=== PATIENT | female | born 1995 | race African-American/Black ===

== ENCOUNTER 2021-09-25 15:31 | Outpatient (CLI) | payer MEDICAID, SELFPAY ==
[2021-09-25 16:43] LABS: Absolute Lymphocyte Count 2.26 X10^3/uL (0.83-4.51); Absolute Neutrophil Count 4.1 X10^3/uL (2.0-7.7); Basophil# 0.03 X10^3/uL; Basophil% 0.4 % (0-1); Eosinophil# 0.05 X10^3/uL; Eosinophils% 0.7 % (0-5); Hematocrit 42.7 % (37-47); Lymphocyte # 2.26 X10^3/ul (0.83-4.51); Lymphocyte % 31.9 % (19-41); Mean Corp Hgb Conc 32.8 g/dL (32-36); Mean Corpuscular Volume 88.6 fL (81-99); Mean Platelet Vol. 9.3 fl (6.2-12.0); Monocyte# 0.63 X10^3/uL; Monocyte% 8.9 % (0-10); NRBC Flagged by Analyzer 0 % (0-5); Neutrophil # 4.09 X10^3/uL (2.7-7.7); Neutrophil % 57.8 % (47-70); Platelet Count 360 K/mm3 (150-450); RBC Distribution Width CV 12.8 % (11.6-14.6); RBC Distribution Width SD 41.3 fl (35.1-43.9); Red Blood Count 4.82 M/mm3 (4.2-5.4); White Blood Count 7.1 K/mm3 (4.4-11.0)
[2021-09-26 09:34] LABS: HIV - WCH Non-Reactive (Nonreactive); Hepatitis B Surface Antigen Non-Reactive (Nonreactive); Hepatitis C Antibody Non-Reactive (Nonreactive); Rubella IgG Reactive (Nonreactive); Syphilis Antibodies Non-reactive
[2021-09-27 21:07] LABS: Chlamydia By Nucleic Acid AMP Negative (Negative)
[2021-09-28 13:39] LABS: Gonococcus By Nucleic Acid AMP Negative (Negative)
[2021-10-02 15:43] LABS: HPV Reflexed? NOT INDICATED
== END 2021-09-25 23:59 | disposition home or self-care (01) ==
LOC: WOBLAB 15:36
PROVIDERS: Visit Provider Obstetrics & Gynecology
DX: Z34.81 Encounter for supervision of other normal pregnancy, first trimester (principal)
CPT/HCPCS: 36415; 85025; 86703; 86762; 86780; 86803; 87086; 87088; 87340; 87491; 87591; 88175; G0145

== ENCOUNTER 2024-02-26 19:31 | Emergency (ER) | payer MEDICAID, SELFPAY ==
[2024-02-26 19:32] VITALS: BP 152/92; PULSE 114; RESP 16; TEMP 36.6; O2SAT 98; BMI 52.8
[2024-02-26 19:49] LABS: Mucous, Urine 0 SEEN /hpf (<or=2+); White Blood Cells 0 SEEN /hpf (0-5)
[2024-02-26 19:52] LABS: Color, Urine Yellow (Yellow); Glucose, Dipstick Normal (Normal); Ketone-Dipstick Negative (Negative); Leukocyte Esterase-Dipstick Negative /ul (Negative); Nitrite-Dipstick Negative (Negative); Occult Blood-Urine 250 /ul (Negative); Protein-Dipstick Negative (Negative); Urine Bilirubin Dipstick Negative (Negative); Urine Clarity Clear (Clear); Urine Urobilinogen Normal (Normal)
[2024-02-26 20:02] LABS: Red Blood Cells-Urine 10-25 SEEN /hpf (0-5); Squamous Epithelial Cells - UA 0-5 SEEN /hpf (5-10)
[2024-02-26 20:03] LABS: Bacteria RARE /hpf (None Seen)
[2024-02-26 20:59] LABS: Absolute Lymphocyte Count 2.73 X10^3/uL (0.83-4.51); Basophil# 0.04 X10^3/uL; Basophil% 0.7 % (0-1); Eosinophil# 0.16 X10^3/uL; Eosinophils% 2.9 % (0-5); Hematocrit 39.7 % (37-47); Lymphocyte # 2.73 X10^3/ul (0.83-4.51); Lymphocyte % 50.2 % (19-41); Mean Corp Hgb Conc 32.7 g/dL (32-36); Mean Corpuscular Volume 88.6 fL (81-99); Mean Platelet Vol. 9.2 fl (6.2-12.0); Monocyte# 0.49 X10^3/uL; NRBC Flagged by Analyzer 0 % (0-5); Neutrophil # 2.01 X10^3/uL (2.7-7.7); Platelet Count 305 K/mm3 (150-450); RBC Distribution Width CV 12.8 % (11.6-14.6); RBC Distribution Width SD 41.3 fl (35.1-43.9); Red Blood Count 4.48 M/mm3 (4.2-5.4); White Blood Count 5.4 K/mm3 (4.4-11.0)
[2024-02-26 21:09] LABS: Internal QC Validated? YES +Cl - CLEAR BKGD; Pregnancy, Serum, hCG Quali. NEGATIVE Negative; Record Kit Lot#, Serum Preg. 772476
[2024-02-26 21:17] LABS: ALB/GLOB Ratio 1.1 RATIO (0.9-2.4); AST(SGOT) 13 U/L (15-37); Alanine Aminotransfer ALT/SGPT 32 U/L (13-56); Albumin, Serum 3.5 g/dL (3.2-5.0); Alkaline Phosphatase 84 U/L (45-117); Anion Gap 5 (5-15); BUN 9 mg/dL (7-18); BUN/Creat Ratio 13.2 RATIO (10-20); Calcium,Total 8.9 mg/dL (8.5-10.1); Chloride 108 mmol/L (98-107); Creatinine, Serum 0.68 mg/dL (0.55-1.02); EST Glomerular Filtration Rate 109 mL/min (>60); Est Glom Filt Rate - Afr Amer 132 mL/min (>60); Estimated Creatinine Clearance 198.87 ml/min; Globulin 3.2 g/dL (2.2-4.2); Glucose 104 mg/dL (74-106); Potassium 3.9 mmol/L (3.5-5.1); Protein, Total 6.7 g/dL (6.4-8.2); Sodium Level 140 mmol/L (136-145)
--- NOTE | 2024-02-26 22:09 | US_ITS ---
STUDY: ULTRASOUND TRANSVAGINAL CLINICAL: Female, 28 years old. vaginal bleeding and pain TECHNIQUE: Transvaginal COMPARISON: None. FINDINGS: Normal uterine size measuring 9.3 x 5.6 x 4.6 cm in maximal craniocaudal dimension. Myometrial mass measures 0.8 x 1 x 1 0.7 cm. Normal endometrial thickness measuring 7 mm. There are no endometrial masses, and there is no fluid in the endometrial cavity. Normal uterine cervix. Normal right ovary, measuring 4.4 x 2.8 x 2.7 cm. There are multiple follicles with a dominant simple cyst measuring 1.5 x 1.5 x 1.3 cm. There is also a paraovarian cyst measuring 1.6 x 1.6 x 1.6 cm which appears simple. Blood flow normal. Normal left ovary, measuring 3.2 x 2.2 x 2.1 cm. There are multiple follicles without a dominant cyst. There is no free fluid in the pelvis. Polycystic ovary disease: No. US/Transvaginal Non- IMPRESSION: Right ovarian cyst without evidence of torsion. Small uterine Fibroid. Electronically Signed: Julio Flores MD at 23:49 EDT ,
--- NOTE | 2024-02-27 00:01 | EX.ED.DYSGE1 ---
HPI History of Present Illness Chief Complaint: Abd Pain Informant: patient Narrative Narrative: Patient is a 28-year-old female with past medical history of a uterine fibroid. She states for the past 2 weeks she has been having persistent vaginal bleeding and lower abdominal discomfort. She denies any concern for she denies any fevers or chills or dysuria. She states she is currently not on any type of hormone replacement therapy and she denies any history of bleeding disorder or blood thinner use. She states that she does not have a doctor to follow-up with and based on the prolonged nature of her bleeding comes in for evaluation [facility] Home Medications ?Medication ?Instructions ?Recorded ?Last Taken ?Type NK 02/26/24 Unknown History Allergy/AdvReac Type Severity Reaction Status Date / Time latex AdvReac Rash Verified 02/26/24 19:33 Social History Smoking Status: Never smoker ROS ROS ED Constitutional Constitutional ED: Denies chills or fever(s) Eyes Eyes: Denies blurry vision or change in vision ENT ENT ED: Denies sore throat Cardiovascular Cardiovascular: Denies chest pain Respiratory/Chest Respiratory/Chest: Denies cough or dyspnea Gastrointestinal Gastrointestinal: Reports abdominal pain; Denies constipation, diarrhea, melena, nausea or vomiting Genitourinary Genitourinary ED: Reports other Details: Positive vaginal bleeding ; Denies dysuria or hematuria Musculoskeletal Musculoskeletal: Denies back pain or myalgias Integumentary Denies rash Neurologic Neurologic: Denies headache(s) Hematologic/Lymphatic Hematologic/Lymphatic: Denies easy bleeding or easy bruising EXAM Physical Exam Const Vital Signs: 02/26/24 19:32 02/27/24 00:10 Temperature 97.9 F 97.6 F L Temperature Source Temporal Pulse Rate 114 H 81 Respiratory Rate 16 16 Blood Pressure 152/92 H 131/72 H Blood Pressure Mean 112 91 Pulse Ox 98 99 Oxygen Delivery Method Room Air Positive well nourished, well developed and obese General Appearance ED: well developed; Negative for pallor Nutritional Appearance: obese HEENT HEENT Narrative: Normocephalic atraumatic Eyes PERRL and EOMs intact bilaterally General Eye ED: Negative for pale conjunctiva or scleral icterus Neck supple Resp normal respiratory effort and clear to auscultation bilaterally Cardio regular rate and regular rhythm Rate: other Other Details: Heart is regular rate and rhythm without murmurs rubs or gallop Radial and carotid pulses are equal and symmetric GI normal to inspection, nondistended, normoactive bowel sounds, non-tender, non-distended and no masses GI Narrative: No voluntary guarding or rigidity or pulsatile mass Auscultation: normoactive bowel sounds Palpation: soft Narrative: Patient deferred Back/Spine no CVA tenderness Extremity normal to inspection Neuro oriented x3, CN's II-XII intact bilaterally and no sensory deficits noted Sensorium / Orientation: alert Motor Exam: strength 5/5 throughout Psych mental status grossly normal Skin no rashes or lesions noted and no wounds General Skin Exam: Negative for jaundice or pallor MDM MDM MDM Narrative Medical decision making narrative: Patient arrived to the ER slightly hypertensive but otherwise with stable vital. She reported 2 weeks of persistent vaginal bleeding and there is concern for a ectopic versus missed versus ovarian cyst versus uterine fibroid versus dysfunctional uterine bleeding versus acute blood loss anemia. Secondary to this basic labs were obtained as well as a transvaginal ultrasound. Labs showed no clinically significant findings in transvaginal ultrasound revealed an ovarian cyst as well as uterine fibroid but otherwise no acute changes. Therefore this time as vitals are stable there is no need for a blood transfusion and there is no signs of infection there is no need for inpatient workup and he is otherwise safe for discharge with outpatient follow-up History & Record Review Discussion w/independent historian: Patient Lab Data Attestation: I reviewed the patient's lab results. Labs: Laboratory Results - last 24 hr 02/26/24 02/26/24 19:40 20:48 WBC 5.4 RBC 4.48 Hgb 13.0 Hct 39.7 MCV 88.6 MCH 29.0 MCHC 32.7 RDW Std Deviation 41.3 RDW Coeff of Raghu 12.8 Plt Count 305 MPV 9.2 Immature Gran % (Auto) 0.200 Neut % (Auto) 37.0 L Lymph % (Auto) 50.2 H [place] % (Auto) 9.0 Eos % (Auto) 2.9 Baso % (Auto) 0.7 Absolute Neuts (auto) 2.0 Absolute Lymphs (auto) 2.73 Nucleated RBC % 0 Sodium 140 Potassium 3.9 Chloride 108 H Carbon Dioxide 27.0 Anion Gap 5 BUN 9 Creatinine 0.68 Estim Creat Clear Calc 198.87 Est GFR (MDRD) Af Amer 132 Est GFR (MDRD) Non-Af 109 BUN/Creatinine Ratio 13.2 Glucose 104 Calcium 8.9 Total Bilirubin 0.20 AST 13 L ALT 32 Alkaline Phosphatase 84 Total Protein 6.7 Albumin 3.5 Globulin 3.2 Albumin/Globulin Ratio 1.1 Serum , Qual NEGATIVE Urine Color Yellow Urine Clarity Clear Urine pH 7.0 Ur Specific Liberal 1.010 Urine Protein Negative Urine Glucose (UA) Normal Urine Ketones Negative Urine Occult Blood 250 H Urine Nitrite Negative Urine Bilirubin Negative Urine Urobilinogen Normal Ur Leukocyte Esterase Negative Urine RBC 10-25 SEEN Urine WBC 0 SEEN Ur Squamous Epith Cells 0-5 SEEN Urine Bacteria RARE Urine Mucus 0 SEEN Radiography Diagnostic Testing: Clinical Impression(s) from Imaging Studies Transvaginal US 02/26/24 22:09 IMPRESSION: Right ovarian cyst without evidence of torsion. Small uterine Fibroid. Electronically Signed: Julio Flores MD at 23:49 EDT Reading Location ID and State: [address] [place] [address] Tel , Service support , Discharge Plan Triage Chief Complaint: Abd Pain ED Provider: John Gonzalez Dx/Rx/DC Orders Clinical Impression: DUB (dysfunctional uterine bleeding), Ovarian cyst, Fibroid, uterine Instructions: ED Dysfunctional Uterine Bleeding, ED Ovarian Cyst, ED Uterine Fibroids Prescriptions: No Action NK Primary Care Provider: Care Physician,No Primary Referrals: Paty Galvin MD [Med Staff - Active Staff] - Care Physician,No Primary [Primary Care Provider] - Activity Restrictions/Additional Instructions: Please follow-up with [facility] as you may need your hormone levels checked or started on control to help resolve your symptoms. Return to the ER should you have any further concerns Print Language: Turkmen Disposition Disposition: Home, Self Care Discharge Date/Time: 02/27/24 00:11
[2024-02-27 00:10] VITALS: BP 131/72; PULSE 81; RESP 16; TEMP 36.4; O2SAT 99
== END 2024-02-27 00:11 | disposition home or self-care (01) ==
PROVIDERS: Emergency Provider Emergency Medicine; Visit Provider Emergency Medicine
DX: N93.8 Other specified abnormal uterine and vaginal bleeding (principal); N83.201 Unspecified ovarian cyst, right side; D25.9 Leiomyoma of uterus, unspecified
CPT/HCPCS: 76830; 80053; 81001; 84703; 85025; 99283; A4216

== ENCOUNTER → 2024-03-03 | Outpatient (CLI) | payer MEDICAID, SELFPAY | END | disposition home or self-care (01) | LOC: LABSPEC 14:13 | PROVIDERS: Referring Provider Nurse Practitioner Family; Visit Provider Nurse Practitioner Family | DX: N89.8 Other specified noninflammatory disorders of vagina (principal) | CPT/HCPCS: 87491; 87591 ==

== ENCOUNTER 2024-03-10 19:36 | Emergency (ER) | payer MEDICAID, SELFPAY ==
[2024-03-10 19:39] VITALS: BP 156/98; PULSE 122; RESP 20; TEMP 37.3; O2SAT 96
[2024-03-10 19:53] VITALS: BMI 54.7
--- NOTE | 2024-03-10 20:33 | EKG12_ITS ---
Test Reason : CHEST TIGHTNESS Blood Pressure : / mmHG Vent. Rate : 114 BPM Atrial Rate : 114 BPM P-R Int : 160 ms QRS Dur : 086 ms QT Int : 320 ms P-R-T Axes : 059 060 038 degrees QTc Int : 441 ms Sinus tachycardia Otherwise normal ECG Confirmed by Arun Hernandez ([id number]), editor trade journal JENARO JONES ([id number]) on 03/15/2024 10:43:24 AM Referred By: ZAN Confirmed By:Arun Hernandez
[2024-03-10 21:00] VITALS: BP 126/77; PULSE 81; RESP 18; O2SAT 97
--- NOTE | 2024-03-10 21:04 | EX.ED.DYSGE1 ---
HPI History of Present Illness Chief Complaint: Palpitations Informant: patient and EMS Narrative Narrative: 28-year-old female brought to the emergency room with near syncopal-like symptoms. Patient states that she was at home was in her normal state when she felt a sharp pain in her lateral left low back. States she wanted to go take a shower is very hot muggy in her environment. She states that she began to feel lightheaded like she might pass out and developed some nausea. She states her heart started racing. She notes that she was being treated for an ovarian cyst and vaginal bleeding. She started Aygestin on about 04 March and the bleeding has subsequently stopped. She states she had blood work done on the fifth of this month. She states that she has been very emotional having hot and cold flashes. She sees Alesha Aguilar for gynecology. She is feeling better and no longer has the pain in her flank. She is a non-smoker. Prior history of DVT or PE. Prehospital EKG demonstrates a sinus tach at a rate of 150. She notes she has developed some dyspepsia since the starting of Aygestin. [facility] Medical History Ovarian cyst Preeclampsia Home Medications ?Medication ?Instructions ?Recorded ?Last Taken ?Type norethindrone acetate 5 mg tablet 5 mg PO .COMPLEX #45 tabs 03/03/24 Unknown Rx Allergy/AdvReac Type Severity Reaction Status Date / Time latex AdvReac Rash Verified 03/10/24 19:37 Family History Aunt Breast cancer, Onset Age: 34 Grandfather Throat cancer Surgical History History of tonsillectomy Social History adopted: No number of children: 1 current occupational status: employed sexually active: Yes Smoking Status: Current every day smoker tobacco type: cigarettes and e-cigarettes alcohol intake: never substance use type: does not use and marijuana caffeine: Yes Type: carbonated beverages danna/mandaeism: AGNOSTIC seatbelt use: always do you feel safe at home: Yes ROS ROS ED Constitutional Constitutional ED: Reports subjective and sweats; Denies chills or weight loss Eyes Eyes: Denies change in vision or diplopia ENT ENT ED: Denies ear pain, rhinorrhea or sore throat Cardiovascular Cardiovascular: Reports chest pain, palpitations and racing heartbeat; Denies orthopnea Respiratory/Chest Respiratory/Chest: Reports dyspnea; Denies cough or orthopnea Gastrointestinal Gastrointestinal: Reports nausea; Denies abdominal pain, diarrhea or vomiting Genitourinary Genitourinary ED: Denies dysuria, hematuria or urinary frequency Musculoskeletal Musculoskeletal: Reports back pain; Denies arthralgias or myalgias Integumentary Denies abscess or rash Neurologic Neurologic: Denies headache(s) or weakness Psychiatric Psychiatric: Denies anxiety, depression, suicidal ideation or suicidal thoughts Endocrine Endocrinology: Denies polydipsia, polyphagia or polyuria Allergic/Immunologic Allergic/Immunologic ED: Denies mouth swelling, tongue swelling or urticaria EXAM Physical Exam Const Vital Signs: 03/10/24 19:39 03/10/24 21:00 03/10/24 22:00 Temperature 99.1 F Temperature Source Oral Pulse Rate 122 H 81 88 Respiratory Rate 20 H 18 16 Blood Pressure 156/98 H 126/77 H 121/70 H Blood Pressure Mean 117 93 87 Pulse Ox 96 97 99 Oxygen Delivery Method Room Air Room Air Room Air 03/10/24 23:00 Temperature Temperature Source Pulse Rate 91 Respiratory Rate 18 Blood Pressure 116/75 Blood Pressure Mean 88 Pulse Ox 96 Oxygen Delivery Method Room Air Positive well nourished and well developed General Appearance ED: well developed HEENT Reports normocephalic, head/scalp atraumatic and moist mucous membranes Eyes PERRL and EOMs intact bilaterally Neck no lymphadenopathy, supple and no JVD Resp normal respiratory effort and clear to auscultation bilaterally Cardio regular rate, regular rhythm and no murmurs Rate: tachycardic GI normal to inspection, nondistended, normoactive bowel sounds and non-tender Palpation: soft Back/Spine no CVA tenderness and normal ROM Extremity normal to inspection General Extremety ED: Negative for edema General Extremity: Negative for edema Neuro oriented x3 and CN's II-XII intact bilaterally Sensorium / Orientation: alert Motor Exam: strength 5/5 throughout Psych Mood & Affect: anxious and tearful; Negative for depressed Skin no rashes or lesions noted and no wounds MDM MDM MDM Narrative Medical decision making narrative: Differential diagnosis includes but not limited to cardiac dysrhythmia electrolyte abnormality PE ACS vagal near syncope pneumothorax White count 6.7 hemoglobin of 13 D-dimer slightly elevated 0.60 LFTs are within normal limits. CT of the pelvis demonstrates no pulmonary embolism or aortic dissection or pneumothorax. Patient's EKG is a sinus tachycardia current heart rate down to 91. At this point I think the patient most likely experienced a vasovagal near syncope in response to her pain. She notes that she has been very emotional since she started the Aygestin and has a lot of stress in her life. She will speak with gynecology tomorrow if she should continue this medication as she is no longer having any bleeding. History & Record Review Discussion w/independent historian: EMS personnel and Patient Lab Data Attestation: I reviewed the patient's lab results. Labs: Laboratory Results - last 24 hr 03/10/24 20:41 WBC 6.7 RBC 4.50 Hgb 13.0 Hct 40.3 MCV 89.6 MCH 28.9 MCHC 32.3 RDW Std Deviation 43.8 RDW Coeff of Raghu 13.5 Plt Count 329 MPV 9.2 Immature Gran % (Auto) 0.400 Neut % (Auto) 48.9 Lymph % (Auto) 36.3 [place] % (Auto) 11.0 H Eos % (Auto) 2.7 Baso % (Auto) 0.7 Absolute Neuts (auto) 3.3 Absolute Lymphs (auto) 2.44 Nucleated RBC % 0 D-Dimer Quant (PE/DVT) 0.60 H* Sodium 140 Potassium 3.8 Chloride 109 H Carbon Dioxide 24.0 Anion Gap 7 BUN 9 Creatinine 0.78 Estim Creat Clear Calc 177.29 Est GFR (MDRD) Af Amer 113 Est GFR (MDRD) Non-Af 94 BUN/Creatinine Ratio 11.5 Glucose 86 Calcium 8.7 Total Bilirubin 0.20 Direct Bilirubin 0.09 AST 35 ALT 45 Alkaline Phosphatase 67 Total Protein 6.6 Albumin 3.4 Globulin 3.2 Radiography Diagnostic Testing: Clinical Impression(s) from Imaging Studies Chest CTA 03/10/24 22:15 IMPRESSION: No pulmonary embolism or other acute intrathoracic abnormality. Electronically Signed: Venkata Sousa MD at 22:51 EDT , EKG Initial EKG: Attestation: I personally reviewed and interpreted this EKG as follows: Comments: Sinus tachycardia ventricular rate of 114 bpm Discharge Plan Triage Chief Complaint: Palpitations ED Provider: [facility] Dx/Rx/DC Orders Clinical Impression: Near syncope, Acute left flank pain Instructions: ED Near-Fainting- Vagal Reaction Prescriptions: No Action norethindrone acetate 5 mg tablet 5 mg PO .COMPLEX Qty: 45 0RF Rx Instructions: 5 mg orally TID until bleeding stops for 24hrs then BID to finish RX; Primary Care Provider: Care Physician,No Primary Referrals: Care Physician,No Primary [Primary Care Provider] - Activity Restrictions/Additional Instructions: Please call gynecology in the more than continuation of your medication. Print Language: Yakut Disposition Disposition: Home, Self Care
[2024-03-10 21:10] LABS: Absolute Lymphocyte Count 2.44 X10^3/uL (0.83-4.51); Absolute Neutrophil Count 3.3 X10^3/uL (2.0-7.7); Basophil# 0.05 X10^3/uL; Basophil% 0.7 % (0-1); Eosinophil# 0.18 X10^3/uL; Eosinophils% 2.7 % (0-5); Hematocrit 40.3 % (37-47); Lymphocyte # 2.44 X10^3/ul (0.83-4.51); Lymphocyte % 36.3 % (19-41); Mean Corp Hgb Conc 32.3 g/dL (32-36); Mean Corpuscular Hgb 28.9 pg (27.0-32.0); Mean Corpuscular Volume 89.6 fL (81-99); Mean Platelet Vol. 9.2 fl (6.2-12.0); Monocyte# 0.74 X10^3/uL; NRBC Flagged by Analyzer 0 % (0-5); Neutrophil # 3.28 X10^3/uL (2.7-7.7); Neutrophil % 48.9 % (47-70); Platelet Count 329 K/mm3 (150-450); RBC Distribution Width CV 13.5 % (11.6-14.6); RBC Distribution Width SD 43.8 fl (35.1-43.9); White Blood Count 6.7 K/mm3 (4.4-11.0)
[2024-03-10 21:31] LABS: AST(SGOT) 35 U/L (15-37); Alanine Aminotransfer ALT/SGPT 45 U/L (13-56); Albumin, Serum 3.4 g/dL (3.2-5.0); Alkaline Phosphatase 67 U/L (45-117); Anion Gap 7 (5-15); BUN 9 mg/dL (7-18); BUN/Creat Ratio 11.5 RATIO (10-20); Bilirubin, Direct 0.09 mg/dL (0.00-0.30); Calcium,Total 8.7 mg/dL (8.5-10.1); Chloride 109 mmol/L (98-107); Creatinine, Serum 0.78 mg/dL (0.55-1.02); EST Glomerular Filtration Rate 94 mL/min (>60); Est Glom Filt Rate - Afr Amer 113 mL/min (>60); Estimated Creatinine Clearance 177.29 ml/min; Globulin 3.2 g/dL (2.2-4.2); Glucose 86 mg/dL (74-106); Potassium 3.8 mmol/L (3.5-5.1); Protein, Total 6.6 g/dL (6.4-8.2); Sodium Level 140 mmol/L (136-145)
[2024-03-10 22:00] VITALS: BP 121/70; PULSE 88; RESP 16; O2SAT 99
--- NOTE | 2024-03-10 22:15 | CT_ITS ---
STUDY: CTA CHEST REASON FOR EXAM: Female, 28 years old. pulmonary embolism elevated d dimer RADIATION DOSAGE (If Supplied By Facility): CTDIvol = ( 24.82 ) mGy, DLP = ( 783.16 ) mGycm TECHNIQUE: The examination was performed with the intravenous administration of IV 100mL Isovue-370. Post-processing of the angiographic images was performed, with multiplanar reformation and 3D reconstruction. Individualized dose optimization techniques were used for this CT. COMPARISON: No relevant prior comparison study available FINDINGS: PULMONARY ARTERIES: Normal enhancement of the main pulmonary artery and right and left pulmonary arteries. Normal enhancement of the bilateral peripheral pulmonary arteries. There is no demonstrated pulmonary embolism. AORTA: Normal thoracic aorta and visualized great vessels. There is no demonstrated aortic dissection. MEDIASTINUM: Normal heart and pericardium. Normal mediastinum. Normal hilar regions. LUNGS/PLEURA: Normal visualized trachea and bronchi. The lungs are well expanded. Normal pulmonary parenchyma. Normal pleura. No pneumothorax. CHEST WALL: Normal chest wall structures. UPPER ABDOMEN: Normal visualized upper abdomen. OSSEOUS STRUCTURES: No acute or suspicious osseous abnormality. CT/CTA Chest W/WO Contrast IMPRESSION: No pulmonary embolism or other acute intrathoracic abnormality. Electronically Signed: Venkata Sousa MD at 22:51 EDT ,
[2024-03-10 23:00] VITALS: BP 116/75; PULSE 91; RESP 18; O2SAT 96
[2024-03-10 23:55] VITALS: BP 151/89; PULSE 81; RESP 16; TEMP 36.6; O2SAT 99
== END 2024-03-10 23:55 | disposition home or self-care (01) ==
PROVIDERS: Emergency Provider Emergency Medicine; Visit Provider Emergency Medicine
DX: R55 Syncope and collapse (principal); R10.9 Unspecified abdominal pain; Z11.52 Encounter for screening for COVID-19; R00.2 Palpitations; R00.0 Tachycardia, unspecified; F17.210 Nicotine dependence, cigarettes, uncomplicated; F17.290 Nicotine dependence, other tobacco product, uncomplicated
CPT/HCPCS: 71275; 80048; 80076; 85025; 85379; 87631; 93005; 99284; Q9967

== ENCOUNTER → 2024-04-23 | Outpatient (CLI) | payer MEDICAID, SELFPAY ==
--- NOTE | 2024-04-23 10:13 | US_ITS ---
STUDY: ULTRASOUND OF THE FEMALE PELVIS - COMPLETE REASON FOR EXAM: Female, 28 years old. Ovarian cyst LMP: March 27, 2024. TECHNIQUE: Transabdominal and Transvaginal TECHNICAL QUALITY: Adequate. COMPARISON: Comparison is made with prior study February 26, 2024. FINDINGS: The uterus is anteverted and is in a midline position. The uterus measures 11.1 cm x 6.7 cm x 5.6 cm. There is a Nabothian cyst of the cervix. The endometrium measures 8 mm in thickness, and is heterogeneous (striated). There is no demonstrated endometrial mass. There is no demonstrated myometrial mass. I.U.D. - The patient does not have an I.U.D. The right ovary is visualized. The right ovary measures 3.9 cm x 2.9 cm x 2.5 cm. There is no right ovarian cyst or ovarian mass. There is a 2.1 cm x 1.6 cm x 1.5 cm paraovarian cyst in the right adnexa. This has increased slightly in size as compared to prior study. There is normal arterial and normal venous vascularity. The left ovary is visualized. The left ovary measures 5.3 cm x 6 cm x 5.2 cm. There is a 5.1 cm x 3 cm x 3.5 cm complex cystic nodule in the left ovary. Sonographic follow-up is recommended. This may represent an hemorrhagic cyst. There is no visualized left adnexal mass or complex lesion. There is normal arterial and normal venous vascularity. There is no fluid in the cul-de-sac. The pre void volume of the bladder was 234 ml. US/Pelvic w/ Transvaginal IMPRESSION: Slight increase in size of the previously seen right paraovarian cyst. New complex cyst in the left ovary measuring 5.1 cm x 3 cm x 3.5 cm. This most likely represents a hemorrhagic cyst. Sonographic follow-up recommended. Electronically Signed: Blue Tse MD at 8:58 EST ,
[2024-04-23 11:50] LABS: Absolute Lymphocyte Count 2.59 X10^3/uL (0.83-4.51); Basophil# 0.04 X10^3/uL; Basophil% 0.5 % (0-1); Eosinophil# 0.13 X10^3/uL; Eosinophils% 1.7 % (0-5); Hematocrit 42.6 % (37-47); Hemoglobin 13.6 g/dL (12.0-15.0); Lymphocyte # 2.59 X10^3/ul (0.83-4.51); Lymphocyte % 34.4 % (19-41); Mean Corp Hgb Conc 31.9 g/dL (32-36); Mean Corpuscular Hgb 28.5 pg (27.0-32.0); Mean Corpuscular Volume 89.3 fL (81-99); Mean Platelet Vol. 9.9 fl (6.2-12.0); Monocyte# 0.71 X10^3/uL; Monocyte% 9.4 % (0-10); NRBC Flagged by Analyzer 0 % (0-5); Neutrophil # 4.02 X10^3/uL (2.7-7.7); Neutrophil % 53.6 % (47-70); Platelet Count 323 K/mm3 (150-450); RBC Distribution Width CV 12.6 % (11.6-14.6); RBC Distribution Width SD 41.3 fl (35.1-43.9); Red Blood Count 4.77 M/mm3 (4.2-5.4); White Blood Count 7.5 K/mm3 (4.4-11.0)
[2024-04-23 12:29] LABS: ALB/GLOB Ratio 1.1 RATIO (0.9-2.4); AST(SGOT) 15 U/L (15-37); Alanine Aminotransfer ALT/SGPT 28 U/L (13-56); Albumin, Serum 3.6 g/dL (3.2-5.0); Alkaline Phosphatase 70 U/L (45-117); Anion Gap 4 (5-15); BUN 5 mg/dL (7-18); BUN/Creat Ratio 8.2 RATIO (10-20); Calcium,Total 8.9 mg/dL (8.5-10.1); Chloride 107 mmol/L (98-107); Creatinine, Serum 0.61 mg/dL (0.55-1.02); EST Glomerular Filtration Rate 125 mL/min (>60); Est Glom Filt Rate - Afr Amer 151 mL/min (>60); Globulin 3.2 g/dL (2.2-4.2); Glucose 96 mg/dL (74-106); Potassium 3.8 mmol/L (3.5-5.1); Protein, Total 6.8 g/dL (6.4-8.2); Sodium Level 135 mmol/L (136-145); T4 Free Direct 1.02 ng/dL (0.76-1.46); Thyroid Stim Hormone (TSH) 0.915 uIU/mL (0.358-3.740)
[2024-04-23 12:49] LABS: HIV - WCH Non-Reactive (Nonreactive); Hepatitis B Surface Antigen Non-Reactive (Nonreactive); Hepatitis C Antibody Non-Reactive (Nonreactive); Syphilis Antibodies Non-reactive
== END | disposition home or self-care (01) ==
PROVIDERS: Referring Provider Nurse Practitioner Family; Visit Provider Nurse Practitioner Family
DX: N93.8 Other specified abnormal uterine and vaginal bleeding (principal); N83.209 Unspecified ovarian cyst, unspecified side; D25.9 Leiomyoma of uterus, unspecified; Z13.29 Encounter for screening for other suspected endocrine disorder; N89.8 Other specified noninflammatory disorders of vagina
CPT/HCPCS: 36415; 76830; 76856; 80053; 84439; 84443; 85025; 86695; 86696; 86703; 86780; 86803; 87340

== ENCOUNTER 2025-01-22 21:44 | Emergency (ER) | payer MEDICAID, SELFPAY ==
[2025-01-22 21:45] VITALS: BP 157/106; PULSE 110; RESP 18; TEMP 36.4; O2SAT 97; BMI 69.9
--- NOTE | 2025-01-22 22:16 | EDS_ITS ---
HPI History of Present Illness Chief Complaint: Shortness of Breath Informant: patient Narrative Narrative: Presents concerning swelling left ankle over the last couple days. States initially had mild pain in the However it went away. She traveled back in October over 3 months ago to [place]. She states when she returned she had leg pains bilaterally went to an outside ED ultrasounds both legs were negative. Normal urination. Nursing triage notes dyspnea however she denies dyspnea. States she has anxiety and smokes. No vomiting no diarrhea. No history of blood clots in legs or lungs. She is she is been elevating. She is making normal urine output. [facility] Medical History Hypertension Ovarian cyst Preeclampsia Home Medications ?Medication ?Instructions ?Recorded ?Last Taken ?Type norethindrone acetate 5 mg tablet 5 mg PO .COMPLEX #45 tabs 03/03/24 Unknown Rx Allergy/AdvReac Type Severity Reaction Status Date / Time latex AdvReac Rash Verified 01/22/25 21:48 Family History Aunt Breast cancer, Onset Age: 34 Grandfather Throat cancer Surgical History History of tonsillectomy Social History adopted: No number of children: 1 current occupational status: employed sexually active: Yes Smoking Status: Current every day smoker tobacco type: cigarettes and e- cigarettes alcohol intake: never substance use type: does not use and marijuana caffeine: Yes Type: carbonated beverages danna/church: AGNOSTIC seatbelt use: always do you feel safe at home: Yes ROS ROS ED Constitutional Constitutional ED: Denies fever(s) Cardiovascular Cardiovascular: Denies chest pain Respiratory/Chest Respiratory/Chest: Denies cough Gastrointestinal Gastrointestinal: Denies diarrhea or vomiting Musculoskeletal Musculoskeletal: Reports other Details: Swelling left ankle. ; Denies none Integumentary Denies rash or wounds Neurologic Neurologic: Denies weakness EXAM Physical Exam Const Vital Signs: 01/22/25 21:45 01/22/25 22:03 01/22/25 22:05 Temperature 97.6 F L Temperature Source Temporal Pulse Rate 110 H Respiratory Rate 18 Respiratory Effort Normal Normal Respiratory Depth Normal Respiratory Pattern Normal Normal Blood Pressure 157/106 H Blood Pressure Mean 123 Pulse Ox 97 Oxygen Delivery Method Room Air Room Air Positive well nourished and well developed Constitutional Narrative: BMI 70 General Appearance ED: well developed HEENT normocephalic and atraumatic Eyes General Eye ED: Yes normal appearance of both eyes Neck full ROM Resp normal respiratory effort and normal air movement Cardio regular rate and regular rhythm Rate: other Other Details: Heart rate 94 GI soft to palpation Extremity normal to inspection and full ROM Extremity Narrative: Left lower extremity: Very mild swelling ankle. No redness no warmth. No calf tenderness. Soft compartments. Pulses intact distally. Neuro oriented x3 Skin no rashes or lesions noted and no wounds MDM MDM MDM Narrative Medical decision making narrative: Interventions / MDM: Differential diagnosis: Left lower extremity swelling, history of asthma Diagnosis considered but do not suspect: Proximal DVT however bedside ultrasound negative, electrolyte abnormalities however labs normal. My EKG interpretation: N/A Imaging independently reviewed and interpreted by myself: N/A External documents reviewed: N/A Test considered but not ordered:N/A ED course: isolated swelling left ankle. Patient traveled over 3 months ago. She reported ultrasounds afterwards were negative. She denies any urinary changes. She has not any recent blood work. I will check basic labs. No official ultrasound available at this time. I will perform bedside ultrasound to point regions for evaluation. 5: Left lower extremity 2 point bedside ultrasound performed by myself no DVT proximal third along with popliteal. Patient reassured. Awaiting lab work results. 2320: Lab work normal creatinine 0.68. Reassuring findings. Follow-up given along with outpatient formal ultrasound ordered. Re-evaluation: stable Disposition discussed with patient/family/significant other: Patient Case discussed with consulting clinician: N/A This note was generated with Patience dictation software. It may contain incorrect words, spelling, and punctuation that were not noted in checking the note before signing. Lab Data Attestation: I reviewed the patient's lab results. Labs: Laboratory Results - last 24 hr 01/22/25 01/22/25 01/22/25 22:28 22:28 23:03 WBC Cancelled 5.5 Corrected WBC Cancelled RBC Cancelled 4.70 Hgb Cancelled 13.6 Hct Cancelled 41.5 MCV Cancelled 88.3 MCH Cancelled 28.9 MCHC Cancelled 32.8 RDW Std Deviation Cancelled 41.5 RDW Coeff of Raghu Cancelled 12.9 Plt Count Cancelled 313 MPV Cancelled 9.3 Immature Gran % (Auto) Cancelled 0.200 Neut % (Auto) Cancelled 46.0 L Lymph % (Auto) Cancelled 41.5 H [place] % (Auto) Cancelled 8.7 Eos % (Auto) Cancelled 3.1 Baso % (Auto) Cancelled 0.5 Absolute Neuts (auto) Cancelled 2.5 Absolute Lymphs (auto) Cancelled 2.29 Total Counted Cancelled Neutrophils % (Manual) Cancelled Band Neutrophils % Cancelled Lymphocytes % (Manual) Cancelled Monocytes % (Manual) Cancelled Eosinophils % (Manual) Cancelled Basophils % (Manual) Cancelled Metamyelocytes % Cancelled Myelocytes % Cancelled Promyelocytes % Cancelled Blast Cells % Cancelled Plasma Cell % (Manual) Cancelled Other Cells % Cancelled Nucleated RBC % Cancelled 0 Nucleated RBCs/100 WBC Cancelled Differential Comment Cancelled Diff Path Review Cancelled Hypersegmented Neuts Cancelled Atypical Lymphocytes Cancelled Reactive Lymphocytes Cancelled Smudge Cells Cancelled Toxic Granulation Cancelled Toxic Vacuolation Cancelled Dohle Bodies Cancelled Jayne Rods Cancelled Platelet Estimate Cancelled Plt Morphology Comment Cancelled RBC Morphology Cancelled Cancelled Polychromasia Cancelled Hypochromasia Cancelled Basophilic Stippling Cancelled Anisocytosis Cancelled Microcytosis Cancelled Macrocytosis Cancelled Spherocytes Cancelled Sickle Cells Cancelled Target Cells Cancelled Tear Drop Cells Cancelled Ovalocytes Cancelled Stomatocytes Cancelled [place] Bodies Cancelled Marvin Cells Cancelled Bite Cells Cancelled Crenated Cell Cancelled Acanthocytes (Spur) Cancelled Rouleaux Cancelled Schistocytes Cancelled Sodium 139 Potassium 4.2 Chloride 105 Carbon Dioxide 25.5 Anion Gap 9 BUN 12 Creatinine 0.68 L Estim Creat Clear Calc 237.01 Est GFR (MDRD) Non-Af 122 BUN/Creatinine Ratio 17.2 Glucose 105 H Calcium 9.0 Discharge Plan Triage Chief Complaint: Shortness of Breath ED Provider: Gomez Philippe Dx/Rx/DC Orders Clinical Impression: Edema, peripheral, History of anxiety Instructions: ED Peripheral Edema, Unilateral Prescriptions: No Action norethindrone acetate 5 mg tablet 5 mg PO .COMPLEX Qty: 45 0RF Rx Instructions: 5 mg orally TID until bleeding stops for 24hrs then BID to finish RX; Other Ambulatory Orders: Venous Duplex US, Unilateral (Stat) Facility: [facility] - Location: [facility] Ordered By: Dr. Gomez Philippe Primary Care Provider: Care Physician,No Primary Referrals: Care Physician,No Primary [Primary Care Provider] - Justyna Dickens DO Tammie [[facility]] - 1-2 Weeks Activity Restrictions/Additional Instructions: Bedside ultrasound shows no clots in your upper leg or behind your knee. Your labs are stable. Return for evaluation formal ultrasound your left leg. Print Language: Surinamese Disposition Disposition: Home, Self Care
--- OUTSIDE RECORDS SUMMARY | 2025-01-22 22:24 | XMS RPT_ITS | CCD ---
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 Name Role Phone Jenni Marina PA-C Unavailable Unavailable SHAHNAZ PUCKETT Referring UnavailROBINSON Molina Attending Unavailable PHYSICIAN, NONE Primary Care Physician Unavailab le PHYSICIAN, NONE Primary Care Unavailable ANDRIY MORENO DO Admitting Unavailable BEULAH HILLIARD, SHASHANK Hubbard Attending Unavailab sintia ELAM MD, KATERIN Attending Unavailable PHYSICIAN, NONE Primary Care Unavailable KATERIN ELAM MD Admitting Unavailable KYLE HILLIARD, DR IKER Reyes Consulting Unavailab sintia ALVAREZ MD, DR OLGA Reyes Attending Unavailable PHYSICIAN, NONE Primary Care Unavailable ERIN GIRON MD Attending Unavailable PHYSICIAN, NONE Primary Care Unavailable ERIN GIRON MD Attending Unavailable PHYSICIAN, NONE Primary Care Unavailable PHYSICIAN, NONE Primary Care Unavailable NAE ROBERTO DO Attending Unavailable KELLY NERI DO Attending Unavailable PHYSICIAN, NONE Primary Care Unavailable TOMMY LAINEZ DO Attending Unavailable PHYSICIAN, NONE Primary Care Unavailable Unavailable Primary Care Provider UnavailJohn Daniel Attending Unavailable Care Physician, No Primary Primary Care Unava ilAlesha Haas Attending Unavailable Care Physician, No Primary Primary Care Unava ilable Alesha Aguilar Referring Unavailable Alesha Aguilar Referring Unavailable Care Physician, No Primary Primary Care Unava ilAlesha Haas Attending Unavailable Sara Santa Attending Unavailable Care Physician, No Primary Referring Unava ilable Care Physician, No Primary Primary Care Unava ilable Care Physician, No Primary Referring Unava ilable Care Physician, No Primary Primary Care Unava ilAlesha Haas Attending Unavailable Care Physician, No Primary Primary Care Unava ilable Care Physician, No Primary Referring Unava ilAlesha Haas Attending Unavailable Care Physician, No Primary Primary Care Unava ilable Alesha Aguilar Referring Unavailable Alesha Aguilar Attending Unavailable Care Physician, No Primary Primary Care Unava ilable Brennan [facility] Attending Unavailable BRIT PAUL Attending Unavailable RIN MORGAN Attending Unavailable GWEN ZHANG Attending Unavailable GWEN ZHANG Referring Unavailable GWEN ZHANG Attending Unavailable ALBER WOLFF Attending Unavailable BRIT PAUL Referring Unavailable SHAHNAZ MARIN Attending Unavailable ASIAVINCENT YATESFER Referring Unavailable ASIASHAHNAZ YATES Attending Unavailable MORGAN, RIN Referring Unavailable MORGAN, RIN Attending Unavailable RUSH, JOESY Referring Unavailable RUSH, JOSEY Referring Unavailable RUSH, JOSEY Attending Unavailable Allergies Allergy Classification Reported Allergen(s) Allergy Type Date of Onset Reaction(s) Facility (1 source) NUTRITIONAL SUPPLEMENTS; Translations: [NUTRITIONAL SUPPLEMENTS] Propensity to adverse reactions to drug (disorder) 4 [facility] (1 source) [id number] ARCH; Translations: [[id number] TARCH] Propensity to adverse reactions to drug (disorder) 4 [facility] (2 sources) Bee/Wasp/Ant venom Allergy to substance [facility] (20 sources) Latex; Translations: [latex] Drug allergy 4 Itching [facility] Medications Current Medications Medication Drug Class(es) Dates Sig (Normalized) Sig (Original) albuterol MDI (90 mcg/inh) CFC free inhalation aerosol (1 source) Start: 03-28-2022 take 1 puff(s) by inhalation every four hours as needed for wheezing albuterol MDI (90 mcg/inh) CFC free inhalation aerosol 1 puff(s), Inhalation, q4h, PRN as needed for wheezing, # 18 gram(s), 0 Refill(s) Start Date: 03/28/22 Status: Ordered Blood Pressure Cuff (1 source) Start: 04-07-2022 Blood Pressure Cuff See Instructions, Check and Log Blood Pressure Daily, # 1 EA, 0 Refill(s), Pharmacy: [facility] #[id number], 172.7, cm, 04/02/22 9:47:00 EDT, Height, 129.5 Start Date: 04/07/22 Status: Ordered docusate sodium 100 mg oral tablet (1 source) Start: 04-05-2022 docusate sodium 100 mg oral tablet Dose : 100 mg = 1 tab(s), Oral, BID, # 60 tab(s), 0 Refill(s), Pharmacy: [facility] #[id number], 172.7, cm, 04/02/22 9:47:00 EDT, Height Start Date: 04/05/22 Status: Ordered famotidine 20 mg oral tablet (2 sources) Histamine-2 Receptor Antagonist Start: 04-02-2022 Pepcid 20 mg oral tablet Dose : 20 mg = 1 tab(s), Oral, qDay, # 30 tab(s), 0 Refill(s) Start Date: 04/02/22 Status: Ordered Start: 03-11-2022 Pepcid 20 mg o ral tablet Dose : 20 mg = 1 tab(s), Oral, BID, 0 Refill(s) Start Date: 03/11/22 Status: Ordered hydrOXYzine hydrochloride 25 mg oral tablet (11 sources) Antihistamine Start: 08-24-2024 take 1 tablet by mouth every six hours as needed hydrOXYzine HCl (ATARAX) 25 mg tablet Take 25 mg by mouth four times a day as needed. 08/24/2024 Active labetalol hydrochloride 200 mg oral tablet (1 source) beta-Adrenergic Eric Start: 04-07-2022 labetalol 200 mg oral tablet Dose : 400 mg = 2 tab(s), Oral, BID, # 120 tab(s), 1 Refill(s), Pharmacy: [facility] #[id number], 172.7, cm, 04/02/22 9:47:00 EDT, Height Start Date: 04/07/22 Status: Ordered levonorgestrel 0.736400 mg/hr intrauterine system (5 sources) Progestin, Progestin-containin g Intrauterine Device Start: 11-02-2024 End: 10-31-2032 levonorgestrel (MIRENA) 21 mcg/24hr (up to 8 yrs) 52 mg IUD 1 each by INTRAUTERINE route as directed. 1 each 11/02/2024 10/31/2032 Active Start: 11-02-2024 End: 11-02-2024 1 each, INTRAUTERINE, ONCE ( UP TO 30 DAYS AMB), 1 dose, On Fri11/02/24 at 1200, Hazardous Potential Reproductive Risk Drug: Use appropriate PPE. LORazepam 0.5 mg oral tablet (3 sources) Benzodiazepine Start: 09-23-2024 LORazepam (ATIVAN) 0.5 mg 0.5 mg. 09/23/2024 Active multivitamin, (1 source) Start: 03-11-2022 take 1 tablet by mouth once daily multivitamin, Dose = 1 tab(s), Oral, Daily, 0 Refill(s) Start Date: 03/11/22 Status: Ordered NIFEdipine 30 mg osmotic 24 hr extended release oral tablet (1 source) Dihydropyridine Calcium Channel Eric Start: 04-07-2022 Procardia XL 30 mg oral tablet, extended release Dose : 30 mg = 1 tab(s), Oral, qDay, # 30 tab(s), 1 Refill(s), Pharmacy: [facility] #[id number], 172.7, cm, 04/02/22 9:47:00 EDT, Height Start Date: 04/07/22 Status: Ordered 19 ([place]) oral tablet, chewable (1 source) Start: 03-28-2022 take 1 tablet by mouth once daily 19 ([place]) oral tablet, chewable Dose = 1 tab(s), Chewed, qDay, 0 Refill(s) Start Date: 03/28/22 Status: Ordered rizatriptan 10 mg oral tablet (1 source) Serotonin-1b and Serotonin-1d Receptor Agonist Start: 12-08-2024 take 1 tablet by mouth every week as needed for headache rizatriptan (MAXALT) 10 mg tablet Indications: Intractable migraine without aura and without status migrainosus Take 1 tablet by mouth as needed for migraine headache (see administration instructions) (do not use on more than 2 days per week.). AT ONSET OF HEADACHE. MAY REPEAT AFTER 2 HOURS. DO NOT EXCEED 30 MG PER DAY. 9 tablet 5 12/08/2024 Active topiramate 50 mg oral tablet (1 source) Start: 12-08-2024 End: 06-20-2025 take 1 tablet by mouth once daily at bedtime, then take 2 tablets by mouth once daily at bedtime topiramate (TOPAMAX) 50 mg tablet Indications: Intractable migraine without aura and without status migrainosus Take 1 tablet by mouth daily at bedtime for 14 days, THEN 2 tablets daily at bedtime. 180 tablet 1 12/08/2024 06/20/2025 Active Completed/Discontinued Medications Medication Drug Class(es) Dates Sig (Normalized) Sig (Original) amitriptyline hydrochloride 50 mg oral tablet (11 sources) Tricyclic Antidepressant Start: 08-24-2024 End: 12-08-2024 take 1 tablet by mouth once daily at bedtime amitriptyline (ELAVIL) 50 mg tablet Take 50 mg by mouth daily at bedtime. 08/24/2024 12/08/2024 Discontinued 0.5 ml dulaglutide 3 mg/ml auto-injector (12 sources) GLP-1 Receptor Agonist Start: 09-21-2024 End: 12-08-2024 inject 1.5 mg by subcutaneous injection every week dulaglutide (TRULICITY) 1.5 mg/0.5 mL pen injector Inject 1.5 mg subcutaneously one time a week. 6 mL 09/21/2024 12/08/2024 Discontinued Start: 09-07-2024 End: 12-06-2024 inject 0.75 mg by subcutaneous injection every week dulaglutide (TRULICITY) 0.75 mg/0.5 mL pen injector Inject 0.75 mg subcutaneously one time a week. 6 mL 09/07/2024 09/21/2024 Discontinued (Course of therapy completed) ibuprofen 600 mg oral tablet (1 source) Nonsteroidal Anti-inflammatory Drug Start: 04-05-2022 End: 05-05-2022 ibuprofen 600 mg oral tablet Dose : 600 mg = 1 tab(s), Oral, q6hr, Take with food or milk., # 60 tab(s), 0 Refill(s), Pharmacy: [facility] #[id number], 172.7, cm, 04/02/22 9:47:00 EDT, Height Start Date: 04/05/22 Stop Date: 05/05/22 Status: Ordered metFORMIN hydrochloride 500 mg oral tablet (4 sources) Biguanide Start: 05-24-2024 End: 09-07-2024 take 1 tablet by mouth twice daily at mealtime, then take 1 tablet by mouth after breakfast, then take 1 tablet by mouth after breakfast, then take 1 tablet by mouth after dinner metFORMIN (GLUCOPHAGE) 500 mg tablet Take 1 tablet by mouth two times a day with meals. Start taking one tablet after breakfast for 1-2 weeks. If tolerated, may increase dose to one tablet after breakfast and one tablet after dinner. 180 tablet 05/24/2024 09/07/2024 Discontinued (Side Effects) norethindrone acetate 5 mg oral tablet (6 sources) Start: 10-08-2024 End: 12-08-2024 take 1 tablet by mouth every eight hours, then take 1 tablet by mouth twice daily, then take 1 tablet by mouth once daily norethindrone (AYGESTIN) 5 mg tablet Take 1 tablet by mouth every 8 hours for 5 days, THEN 1 tablet two times a day for 5 days, THEN 1 tablet once daily for 5 days. 30 tablet 10/22/2024 12/08/2024 Discontinued Start: 04-05-2022 norethindrone 0.35 mg oral tablet Dose : 0.35 mg = 1 tab(s), Oral, qDay, # 28 tab(s), 3 Refill(s), Pharmacy: [facility] #[id number], 172.7, cm, 04/02/22 9:47:00 EDT, Height Start Date: 04/05/22 Status: Ordered ondansetron 4 mg oral tablet (1 source) Serotonin-3 Receptor Antagonist Start: 03-19-2022 End: 03-24-2022 Zofran 4 mg oral tablet Dose : 4 mg = 1 tab(s), Oral, q4h, # 30 tab(s), 0 Refill(s), Pharmacy: [facility] #[id number], 172.7, cm, 03/19/22 12:22:00 EDT, Height Start Date: 03/19/22 Stop Date: 03/24/22 Status: Ordered Problems Active Problems Problem Classification Problem Date Documented Date Episodic/Chronic Abdominal pain (1 source) Unspecified abdominal pain; Translations: [Unspecified abdominal pain] Onset: 03-18-2024 Episodic Asthma (17 sources) Asthma; Translations: [Uncomplicated asthma] Onset: 05-14-2024 03-14-2017 Chronic Attention-deficit, conduct, and disruptive behavior disorders (2 sources) Attention deficit hyperactivity disorder, predominantly inattentive type 05-01-2013 Chronic Attention-deficit, conduct, and disruptive behavior disorders (15 sources) Attention deficit hyperactivity disorder; Translations: [Attention-deficit hyperactivity disorder, unspecified type] Onset: 05-14-2024 05-14-2024 Chronic Benign neoplasm of uterus (1 source) Leiomyoma of uterus, unspecified; Translations: [Leiomyoma of uterus, unspecified] Onset: 03-03-2024 Episodic Cardiac dysrhythmias (1 source) Palpitations; Translations: [Palpitations] Onset: 04-01-2024 Episodic Contraceptive and procreative management (4 sources) Patient encounter status; Translations: [Encounter for insertion of intrauterine contraceptive device] Onset: 11-02-2024 10-21-2024 Episodic Headache; including migraine (5 sources) Tension-type headache, unspecified, not intractable; Translations: [Refractory migraine without aura] Onset: 09-09-2024 12-08-2024 Chronic Menstrual disorders (2 sources) Amenorrhea, unspecified; Translations: [Irregular menstruation, unspecified] Onset: 03-03-2024 Chronic Miscellaneous mental health disorders (1 source) Psychosomatic factor in physical condition; Translations: [Psychological and behavioral factors associated with disorders or diseases classified elsewhere] 05-07-2024 Chronic Mood disorders (15 sources) Episodic mood disorder; Translations: [Unspecified mood [affective] disorder] Onset: 06-06-2014 05-14-2024 Chronic Nonspecific chest pain (2 sources) Other chest pain; Translations: [Chest wall pain] Onset: 09-11-2024 Episodic Other circulatory disease (1 source) Elevated blood-pressure reading, without diagnosis of hypertension; Translations: [Elevated blood-pressure reading without diagnosis of hypertension] Onset: 09-09-2024 Episodic Other connective tissue disease (1 source) Pain in right leg; Translations: [Pain of right lower extremity] Onset: 11-16-2024 Episodic Other female genital disorders (1 source) Other specified abnormal uterine and vaginal bleeding; Translations: [Other specified abnormal uterine and vaginal bleeding] Onset: 05-17-2024 Chronic Other female genital disorders (2 sources) Abnormal uterine bleeding; Translations: [Abnormal uterine and vaginal bleeding, unspecified] 07-09-2024 Chronic Other female genital disorders (1 source) Abnormal uterine and vaginal bleeding, unspecified; Translations: [Abnormal uterine bleeding (AUB)] Onset: 10-08-2024 Chronic Other female genital disorders (1 source) Other specified noninflammatory disorders of vagina; Translations: [Other specified noninflammatory disorders of vagina] Onset: 03-25-2024 Episodic Other female genital disorders (1 source) Personal history of other diseases of the female genital tract; Translations: [History of ovarian cyst] Onset: 10-08-2024 Episodic Other injuries and conditions due to external causes (1 source) Other injury of unspecified body region, initial encounter; Translations: [Muscle strain] Onset: 11-16-2024 Episodic Other nutritional; endocrine; and metabolic disorders (1 source) Body mass index 30+ - obesity 03-19-2022 Chronic Other nutritional; endocrine; and metabolic disorders (1 source) Obesity; Translations: [Obesity, unspecified] 05-07-2024 Chronic Other nutritional; endocrine; and metabolic disorders (2 sources) Severe obesity; Translations: [Class 3 severe obesity with body mass index (BMI) of 50.0 to 59.9 in adult, unspecified obesity type, unspecified whether serious comorbidity present (HCC)] 05-14-2024 Chronic Other nutritional; endocrine; and metabolic disorders (1 source) Morbid (severe) obesity due to excess calories; Translations: [Class 3 severe obesity with body mass index (BMI) of 50.0 to 59.9 in adult, unspecified obesity type, unspecified whether serious comorbidity present (HCC)] Onset: 09-15-2024 Chronic Other nutritional; endocrine; and metabolic disorders (1 source) Body mass index (BMI) 50.0-59.9, adult; Translations: [Class 3 severe obesity with body mass index (BMI) of 50.0 to 59.9 in adult, unspecified obesity type, unspecified whether serious comorbidity present (HCC)] Onset: 09-15-2024 Chronic Polyhydramnios and other problems of amniotic cavity (1 source) Oligohydramnios 03-19-2022 Episodic Residual codes; unclassified (5 sources) Obstructive sleep apnea syndrome; Translations: [Obstructive sleep apnea (adult) (pediatric)] 09-21-2024 Chronic Residual codes; unclassified (1 source) Obstructive sleep apnea (adult) (pediatric); Translations: [DARWIN (obstructive sleep apnea)] Onset: 06-18-2025 Chronic Unclassified (1 source) Unknown / UNK(Unknown) Onset: 04-24-2017 Unclassified (1 source) Streptococcus agalactiae (organism) 04-02-2022 Unclassified (1 source) NO SHOW 04-30-2024 Unclassified (1 source) Dental Problem Onset: 12-27-2023 Unclassified (1 source) Class 3 severe obesity with body mass index (BMI) of 50.0 to 59.9 in adult, unspecified obesity type, unspecified whether serious comorbidity present (HCC); Translations: [Class 3 severe obesity with body mass index (BMI) of 50.0 to 59.9 in adult, unspecified obesity type, unspecified whether serious comorbidity present (HCC)] Onset: 09-15-2024 Past or Other Problems Problem Classification Problem Date Documented Date Episodic/Chronic Administrative/social admission (15 sources) Fostered; Translations: [Child in welfare custody] Onset: 08-25-2013 05-14-2024 Episodic Diabetes or abnormal glucose tolerance complicating ; childbirth; or the puerperium (2 sources) Abnormal glucose complicating ; Translations: [Abnormal glucose complicating ] Onset: 03-14-2022 Episodic Immunizations and screening for infectious disease (4 sources) Encounter for immunization; Translations: [Encounter for prophylactic Rho(D) immune globulin] Onset: 03-04-2022 Episodic Other female genital disorders (14 sources) Cyst of uterine adnexa; Translations: [Other noninflammatory disorders of ovary, fallopian tube and broad ligament] Onset: 07-15-2024 07-15-2024 Episodic Other and delivery including normal (5 sources) ; Translations: [Encounter for supervision of normal , unspecified, unspecified trimester] Onset: 09-08-2021 03-11-2022 Episodic Comment on above: System added from do cumentation. Status documented as Yes on Admission Ovarian cyst (18 sources) Unspecified ovarian cyst, unspecified side; Translations: [Cyst of right ovary] Onset: 03-03-2024 07-09-2024 Episodic Unclassified (1 source) COUGH AND CONGESTION/TRIAGE Onset: 04-24-2017 Unclassified (1 source) Patient encounter status 11-02-2024 Results Test Name Value Interpretation Reference Range Facility CNOVon 12-08-2024 CNOV Office Visit ([facility]) LALITHA GARCIA ([id number]) 1995 F Date Time Provider Department 12/08/24 10:40 AM ALBER WOLFF [facility] During your visit today, we recorded the following information about you: Temperature Pulse Blood pressure Weight 98.7 degrees 116/minute 147/99 180.7 kg Height 1.727 m Alber Wolff MD 12/08/2024 11:18 AM Signed HEADACHE MEDICINE NEW EVALUATION December 08, 2024 10:40 AM Headache 1 Diagnosis: Episodic Migraine Onset: - ANGUIANO onset was approx 1 year ago, and has worsened over time. Pt has DARWIN, and notes that when she uses pillow to prop up--ANGUIANO's are better. She has her sleep pressure titration pending--she needs to set up the second part of the exam. Location: occipital, left and right Quality/Description: throbbing (pulsating) Associated Symptoms: Photophobia: yes Phonophobia: yes Nausea: no Vomiting: no Worse with activity: yes - ANGUIANO's preclude activity at times. Number of migraine headache days/month: 10 Migraine Severity: severe. Number of headache free days/month: 20 Duration of headaches with treatment: Duration of attacks with treatment: ANGUIANO's can be all day. Current preventive treatment: amitriptyline 50 mg Current abortive treatment: APAP or ibuprofen Onset of headache to peak: gradual Relieving factors: massage can help Positional changes: no Most common time of day for headache to begin: upon awakening Prodrome: none Aura: none Allodynia: no Days missed from work or school in the last month: 0 days PAST MEDICAL HISTORY Diagnosis Date Anxiety state Obesity DARWIN (obstructive sleep apnea) PAST SURGICAL HISTORY Procedure Laterality Date TONSILLECTOMY AND ADENOIDECTOMY Current Outpatient Medications Medication Sig levonorgestrel (MIRENA) 21 mcg/24hr (up to 8 yrs) 52 mg IUD 1 each by INTRAUTERINE route as directed. LORazepam (ATIVAN) 0.5 mg 0.5 mg. hydrOXYzine HCl (ATARAX) 25 mg tablet Take 25 mg by mouth four times a day as needed. topiramate (TOPAMAX) 50 mg tablet Take 1 tablet by mouth daily at bedtime for 14 days, THEN 2 tablets daily at bedtime. rizatriptan (MAXALT) 10 mg tablet Take 1 tablet by mouth as needed for migraine headache (see administration instructions) (do not use on more than 2 days per week.). AT ONSET OF HEADACHE. MAY REPEAT AFTER 2 HOURS. DO NOT EXCEED 30 MG PER DAY. No current facility-administered medications for this visit. ALLERGIES Allergen Reactions Latex Itching No family history on file. Social History Tobacco Use Smoking status: Every Day Current packs/day: 0.25 Types: Cigarettes Smokeless tobacco: Never Vaping Use Vaping status: Never Used Substance Use Topics Alcohol use: Not Currently Drug use: Not Currently Types: Marijuana PHYSICAL EXAMINATION 12/08/24 1048 BP: 147/99 BP Site: Right Arm BP Position: Sitting BP Cuff Size: Extra Large Adult Pulse: 116 Temp: 37.1 ?C (98.7 ?F) TempSrc: Oral Weight: (!) 180.7 kg (398 lb 5.9 oz) Height: 172.7 cm (5' 8) General appearance: Well appearing, alert, in no acute distress, well-hydrated, well nourished. Head: Normocephalic, no masses, lesions, tenderness or abnormalities Eyes: Anicteric sclera. Extraocular movements are intact. Neuro: Negative findings: speech normal, mental status intact, cranial nerves VII intact, no focal findings. MRI Head/Brain - Last 2 Impressions No resulted procedures found. CT Head/Brain - Last 2 Impressions No resulted procedures found. Lalitha was seen today for hospital f/u. Diagnoses and all orders for this visit: Intractable migraine without aura and without status migrainosus - topiramate (TOPAMAX) 50 mg tablet; Take 1 tablet by mouth daily at bedtime for 14 days, THEN 2 tablets daily at bedtime. - CONSULT TO OPTOMETRY; Future - rizatriptan (MAXALT) 10 mg tablet; Take 1 tablet by mouth as needed for migraine headache (see administration instructions) (do not use on more than 2 days per week.). AT ONSET OF HEADACHE. MAY REPEAT AFTER 2 HOURS. DO NOT EXCEED 30 MG PER DAY. - PROVIDER ORDERED FOLLOW UP; Future DARWIN (obstructive sleep apnea) - PAP TITRATION PSG (CPAP, BIPAP, ASV); Future - CONSULT TO OPTOMETRY; Future - PROVIDER ORDERED FOLLOW UP; Future Lalitha Garcia is a 29 year old year old female, with a history of morbid obesity, DARWIN, and episodic migraine. Her neurological examination is essentially normal at this visit. Pt reports she had optometry exam in last 6 months at [facility], and knows of no abnormalities. Given ANGUIANO's and Body mass index is 60.57 kg/m?.--I want to repeat the optometry exam to ensure there is no papilledema. She has severe DARWIN on HSAT, so needs PAP titration study to determine optimal PAP as well as potential need for supplemental O2 given desaturations. This was ordered today--encouraged to schedule prior to leaving clinic (more content not included)... Normal [facility] ED NOTEon 11-17-2024 ED NOTE HNO ID: [id number] Author: ENOC RICHARDS RN Service: Emergency Medicine Author Type: Registered Nurse Type: ED Notes Filed: 11/17/2024 00:41 Note Text: Discharge instructions presented to patient, no questions at this time. MyChart activation information given to patient. Educated patient on importance of follow up as needed, patient verbalized understanding. Patient ambulatory upon discharge from ED Normal [facility] ED PROV NOTEon 11-17-2024 ED PROV NOTE HNO ID: [id number] Author: LIONEL HUFFMAN PA-C Service: Emergency Medicine Author Type: Physician Rubber Attacher Type: ED Provider Notes Filed: 11/17/2024 00:41 Note Text: ED Provider Note Patient Name: Lalitha Garcia : 1995 SERVICE DATE: 11/16/24 History No chief complaint on file. 28-year-old female presents complaint of atraumatic right lower extremity pain. The patient states concern for DVT. She reports that she recently drove to [place] and back. Denies any obvious asymmetry. She states no weakness or paresthesias. She reports that she has remained amatory. She reports full range of motion throughout the right lower extremity No past medical history on file. PAST SURGICAL HISTORY Procedure Laterality Date TONSILLECTOMY AND ADENOIDECTOMY No family history on file. Social History Tobacco Use Smoking status: Every Day Current packs/day: 0.25 Types: Cigarettes Smokeless tobacco: Never Vaping Use Vaping status: Never Used Substance and Sexual Activity Alcohol use: Not Currently Drug use: Not Currently Types: Marijuana Sexual activity: Yes Partners: Male control/protection: None ALLERGIES Allergen Reactions Latex Itching Review of Systems All other systems reviewed and are negative. Physical Exam Vitals BP Pulse Temp Temp src Resp SpO2 Weight Height 11/16/24 2228 11/16/24 2228 11/16/24 2228 -- 11/16/24 2221 11/16/242227 -- -- 154/103 (!) 103 36.8 ?C (98.2 ?F) 18 98 % Physical Exam Vitals and nursing note reviewed. Constitutional: General: She is not in acute distress. Appearance: Normal appearance. She is normal weight. She is not ill-appearing, toxic-appearing or diaphoretic. HENT: Head: Normocephalic. Nose: Nose normal. Mouth/Throat: Mouth: Mucous membranes are moist. Eyes: Conjunctiva/sclera: Conjunctivae normal. Cardiovascular: Rate and Rhythm: Normal rate and regular rhythm. Pulses: Normal pulses. Heart sounds: Normal heart sounds. Pulmonary: Effort: Pulmonary effort is normal. Breath sounds: Normal breath sounds. Abdominal: General: Abdomen is flat. There is no distension. Palpations: Abdomen is soft. Tenderness: There is no abdominal tenderness. There is no right CVA tenderness, left CVA tenderness or guarding. Musculoskeletal: General: Normal range of motion. Cervical back: Normal range of motion and neck supple. Skin: General: Skin is warm and dry. Capillary Refill: Capillary refill takes less than 2 seconds. Neurological: General: No focal deficit present. Mental Status: She is alert and oriented to person, place, and time. Psychiatric: Mood and Affect: Mood normal. Behavior: Behavior normal. Thought Content: Thought content normal. Judgment: Judgment normal. Diagnostic Testing ED Labs Ordered and Reviewed - No data to display Procedures ED Course / Clinical Impression ED Course as of 11/17/24 0038 Lionel Huffman's Documentation FriNovember 17, 2024 0029 IMPRESSION: No evidence of thrombosis at imaged venous structures. Clinical Impressions as of 11/17/24 0038 Pain of right lower extremity Muscle strain MDM / Disposition / Plan Ultrasound negative. Patient neurovascularly intact on exam. Compartments remain soft. No evidence of infectious etiology. Patient remains weightbearing. No indication for radiographs. There is no direct bony tenderness and the patient endorses no trauma or fall. Patient will be instructed to utilize Tylenol as needed for pain and follow-up closely with her primary care physician for further evaluation. History and Record Review Clinical information obtained from an independent historian. History obtained from or confirmed by: see ED course. External record(s) reviewed: see ED Course. Differential Diagnoses - DVT - Cellulitis Management Management of the patient was discussed with:see ED course I performed an independent interpretation of the following:see ED course Re-evaluation see ED course Lionel Huffman PA-C Disposition The patient was discharged. See MDM narrative Counseled patient regarding suspected diagnosis and radiology results. The following prescription medication(s) were considered but ultimately not given after discussion with patient/family: see ED Course . Prescriptions and Discharge Orders Discharge Orders None SIGNATURE: Lionel Huffman PA-C - LIONEL HUFFMAN 11/17/24 0041 [facility] ALLIED HEALTHon 11-16-2024 ALLIED HEALTH HNO ID: [id number] Author: JOSEY GILLIS RT(R) Service: ? Author Type: Residence Supervisor Type: Allied Health Filed: 11/16/2024 22:57 Note Text: Radiology Service Progress Note PATIENT NAME: Lalitha Garcia DATE OF SERVICE: November 16, 2024 TIME: 10:57 PM PATIENT IDENTITY VERIFICATION COMPLETED USING TWO (2) IDENTIFIERS: Name and Date of confirmed by patient verbally. FALL SCREENING: Has the patient had 2 falls in the last year or 1 fall with injury or currently using an Ambulatory Assistive Device (Walker, Cane, Wheelchair, Crutches, etc.)? Emergency Room Patient: Screened in ED PATIENT GENDER DATA: Assigned female at . status: Unknown status: N/A PATIENT RELEVANT IMPLANT DATA REVIEWED: Not Applicable PATIENT PRESENTS WITH AN IMPLANTABLE OR ATTACHED SUPERVISOR CUTTING AND BONING: No RADIOLOGY DEPARTMENT: Ultrasound PERIPHERAL IV DATA: Not applicable SIGNED BY: RT Vini(R) November 16, 2024 10:57 PM [facility] ED NOTEon 11-16-2024 ED NOTE HNO ID: [id number] Author: ZIA DAWSON RN Service: ? Author Type: Registered Nurse Type: ED Notes Filed: 11/16/2024 22:24 Note Text: Patient C/O RLE pain after a ten hour [address] from [place]. Patient reports she is unable to tell if there is swelling or not. Pain is from the front of the shine up to the front of the thigh. Normal [facility] US DVT LOWER RTon 11-16-2024 US DVT LOWER RT * * *Final Report* * * DATE OF EXAM: Nov 16 2024 10:58PM [facility] 1007 - US DVT LOWER RT / PROCEDURE REASON: Leg deep vein thrombosis (DVT), new symptoms * * * * Physician Interpretation * * * * RESULT: EXAMINATION: RIGHT LOWER EXTREMITY DEEP VENOUS ULTRASOUND WITH DOPPLER IMAGING CLINICAL HISTORY: Leg pain or tenderness. TECHNIQUE: Grayscale with compression maneuvers, color Doppler and spectral Doppler imaging of the right proximal deep veins was performed. Grayscale with compression maneuvers of the peroneal and posterior tibial veins was performed. The right great and small saphenous veins were evaluated at their insertion to the deep system. The contralateral common femoral vein was imaged for comparison. Images were obtained and stored in a permanent archive. MQ: [id number] COMPARISON: None RESULT: RIGHT LOWER EXTREMITY PROXIMAL DEEP VEINS Distal External Iliac, Common Femoral and proximal Profunda Veins: Compression: Normal Doppler: Normal, spontaneous respirophasic flow. Normal response to augmentation. Femoral vein: Compression: Normal Doppler: Normal, spontaneous flow. Normal response to augmentation. Popliteal vein: Compression: Normal Doppler: Normal, spontaneous flow. Normal response to augmentation. CALF DEEP VEINS Peroneal veins: Normal compression. Posterior tibial veins: Normal compression. Gastrocnemius and Soleal veins: Not imaged. SUPERFICIAL VEINS Great saphenous: Patent and compressible at insertion into common femoral vein; not otherwise assessed. Small Saphenous: Patent and compressible in the proximal calf, not otherwise assessed. LEFT LOWER EXTREMITY (FOR COMPARISON) Common Femoral Vein: Compression: Normal Doppler: Normal, spontaneous respirophasic flow. Normal response to augmentation. IMPRESSION: No evidence of thrombosis at imaged venous structures. Transcribed Using Voice Recognition Transcribe Date/Time: Nov 17 2024 12:19A Dictated by: KENDRA CHANG MD This examination was interpreted and the report reviewed and electronically signed by: KENDRA CHANG MD on Nov 17 2024 12:20AM EST [id number] [facility] 11-12-2024 CNPN Telephone (OBGYWM) RADHALALITHA ([id number]) 1995 F Date Time Provider Department 11/12/24 GRSI QUINTERO During your visit today, we recorded the following information about you: Jose Rojas RN 11/12/2024 1:49 PM Signed Pt had Mirena placed 11/02/24. Unable to feel strings-was able to feel strings first few days after placement. C/o cramping intermittently AND Pt states it starts to if sitting to long. Pt has been taking Advil-seems to be helping with the cramping/lightens her bleeding AND has also been taking tylenol, but states she feels like this makes her bleed more. Bleeding has been light-light a light period. Pt asking you can't take any other control with the Mirena, can you? Informed Pt that, No you cannot. This RN asked Pt why she is asking and Pt states she has never had an IUD before and didn't know. Pt then asked If you were to pleasure yourself, are you going to cause yourself to bleed more? Informed Pt that message would be forwarded to provider for further guidance, but re: IUD, it will take some time for her body to get adjusted to the IUD and she may likely have intermittent cramping/discomfort, but to notify our office immediately if she develops severe abdominal pain and/or heavy bleeding to where she is filling a pad qhr for more than 2 hours. Pt voiced understanding. TOMMIE Villalpando Courtney, APRN.WILLIAM 11/12/2024 4:24 PM Signed Agree with plan of care. Patient should keep her appointment for 4 weeks post IUD. Gris Quintero APRN.Shahnaz Beard RN 11/12/2024 4:34 PM Signed Left message for patient to call office. Shahnaz Ho RN Allergies As of Date: 11/12/2024 Noted Allergy Reaction LATEX 07/09/2024 9 - Itching Date Reviewed: 11/02/2024 Reviewed by: Shahnaz Marin MD - Fully Assessed Reason for Visit: Mirena IUD [Other] Prescriptions as of 11/16/2024 - levonorgestrel (MIRENA) 21 mcg/24hr (up to 8 yrs) 52 mg IUD 1 each by INTRAUTERINE route as directed. - LORazepam (ATIVAN) 0.5 mg 0.5 mg. - norethindrone (AYGESTIN) 5 mg tablet Take 1 tablet by mouth every 8 hours for 5 days, THEN 1 tablet two times a day for 5 days, THEN 1 tablet once daily for 5 days. - dulaglutide (TRULICITY) 1.5 mg/0.5 mL pen injector Inject 1.5 mg subcutaneously one time a week. - hydrOXYzine HCl (ATARAX) 25 mg tablet Take 25 mg by mouth four times a day as needed. - amitriptyline (ELAVIL) 50 mg tablet Take 50 mg by mouth daily at bedtime. Problem List As Of Date 11/12/2024 Noted Resolved Uncomplicated asthma [J45.909] 05/14/2024 Attention deficit hyperactivity disorder (ADHD)*05/14/2024 Episodic mood disorder (HCC) [F39] 06/06/2014 Foster care (status) [Z62.21] 08/25/2013 Ovarian cyst, right [N83.201] 07/15/2024 Paratubal cyst [N83.8] 07/15/2024 Encounter Status:Closed by GRIS QUINTERO on 11/12/24 [facility] CNOVon 11-02-2024 CNOV Office Visit (OBGYWM ) LALITHA GARCIA ([id number]) 1995 F Date Time Provider Department 11/02/24 11:30 AM SHAHNAZ MARIN During your visit today, we recorded the following information about you: Blood pressure Weight 130/72 171 kg Shahnaz Marin MD 11/02/2024 12:17 PM Signed Employment Attorney offered: Patient declines. Lalitha presents today for IUD insertion for contraception. Patient's last menstrual period was 09/26/2024 (exact date). GC/chlamydia: Not done: no risk factors and/or patient declines screening test: negative Side effects including irregular bleeding were discussed with the patient. The patient understands that it should be removed in 8 years or sooner if the patient desires a . IUD source: office provided IUD lot #: [id number] Exp date: 11/20/2026 [facility] [id number] UNIVERSAL PROTOCOL / SAFETY CHECKLIST Procedure to be Performed: Intrauterine Device (IUD) insertion Mirena Sign In: A Moment of CARE was completed. Appropriate PPE (Personal Protective Equipment) worn by all providers involved with the procedure. Special equipment not required. Patient/Surrogate Stated/Verified: Patient name, Date of , Relevant allergies, and The intended procedure Time Out: Relevant labs, photos, and/or imaging studies have been reviewed. Intended patient and procedure match the source document(s) (e.g. consent, HANDP, associated studies [imaging, pathology]) match the intended patient and procedure. Consent obtained and matches the intended procedure. Yes. Correct side/site is not applicable. Medications required for this procedure are not applicable. Fire risk assessed and is not applicable. Implants: Correct implant(s) confirmed including size and side. Expiration date(s) reviewed. Sign Out: Specimens not collected. All instruments, equipment, possible retained foreign bodies are accounted for. Yes. The post-procedure plan of care has been communicated to the patient or surrogate. The cervix was prepped with betadine. The uterus sounded to 10 cm and the uterus is Midposition.. Using sterile technique, the Mirena IUD was inserted without difficulty and the string was cut to 3 cm from the external os of the cervix. Patient tolerated procedure well. PLAN: Patient was advised to observe for signs and symptoms of infection including but not limited to fever, malodorous vaginal discharge and/or pain. The patient was told to check the string monthly for accurate placement. Bleeding expectations were reviewed. Follow up for next annual exam or sooner as needed. MD Demi Lance Reanna, MA 11/02/2024 11:31 AM Signed POST IUD INSTRUCTIONS You may have irregular bleeding during the first 3 months of use. You may have mild-severe cramping for the next 48 hours. You may use over the counter medication (Motrin, Tylenol) as needed. Your IUD must be removed or replaced based on the following table: IUD Type Removed or replaced within: Mona 3 years Kyleena 5 years Mirena 8 years Liletta 8 years Paragard 10 years Call the office for signs/symptoms of infection such as severe cramping, fever, or unusual bleeding. Check for string placement as instructed by your doctor. If you have any additional questions, please contact the office. Referring Provider: SHAHNAZ MARIN [[id number]] Allergies As of Date: 11/02/2024 Noted Allergy Reaction LATEX 07/09/2024 9 - Itching Date Reviewed: 11/02/2024 Reviewed by: Shahnaz Marin MD - Fully Assessed Reason for Visit: Insertion Of IUD [291] Primary Visit Diagnosis:Encounter for IUD insertion [Z30.430] Order(s):INSERT INTRAUTERINE DEVICE [[id number]] Order #: [id number] [] levonorgestrel 21 mcg/24hr (up to 8 yrs) 52 mg 1 each intrauterine device (MIRENA)Disp: Rfl: levonorgestrel (MIRENA) 21 mcg/24hr (up to 8 yrs) 52 mg IUD1 each by INTRAUTERINE route as directed.Disp: 1 eachRfl: 0 UA DIP,URINE HCG (POC) [[id number]] Order #: [id number]. #:[id number] Prescriptions as of 11/02/2024 - levonorgestrel (MIRENA) 21 mcg/24hr (up to 8 yrs) 52 mg IUD 1 each by INTRAUTERINE route as directed. - LORazepam (ATIVAN) 0.5 mg 0.5 mg. - norethindrone (AYGESTIN) 5 mg tablet Take 1 tablet by mouth every 8 hours for 5 days, THEN 1 tablet two times a day for 5 days, THEN 1 tablet once daily for 5 days. - dulaglutide (TRULICITY) 1.5 mg/0.5 mL pen injector Inject 1.5 mg subcutaneously one time a week. - hydrOXYzine HCl (ATARAX) 25 mg tablet Take 25 mg by mouth four times a day as needed. - amitriptyline (ELAVIL) 50 mg tablet Take 50 mg by mouth daily at bedtime. Problem List As Of Date 11/02/2024 Noted Resolved Uncomplicated asthma [J45.909] 05/14/2024 Attention deficit hyperactivity disorder (ADHD)*05/14/2024 Episodic mood disorder (HCC) [F39] 06/06/2014 Fost (more content not included)... Normal [facility] UA DIP,URINE HCG (POC)on Beta HCG ( test) Ql (U) Negative Negative [facility] Comment on above: Location:[facility], [address], [place], [address] Functional Director (POCT) Internal QC [facility] Location:[facility], [address], [place], [address] [facility]) LALITHA GARCIA ([id number]) 1995 F Date Time Provider Department 10/21/24 [facility] During your visit today, we recorded the following information about you: Jose Rojas, TOMMIE 10/21/2024 12:23 PM Signed Pt last saw J 10/08/24 for AUB. Prescribed Norethindrone. States has approximately 4 tablets left-states it helps, but when she stops it, her bleeding comes back. Denies pain. Pt asking for norethindrone for TID because that's when it works best. Advised her that note from visit on 10/08/24 stated that IUD was planned. Pt states she is agreeable to IUD and wonders if this would help with the bleeding. Pt has appt scheduled with CP today and wonders if the IUD can be placed today. Informed her that it will not be able to be placed today, but she can certainly discuss with CP the AUB/Rx for bleeding and what IUD is recommended for this particular situation. Pt agreeable to keeping appt today to discuss information with provider. TOMMIE Villalpando Tara, RN 10/21/2024 12:16 PM Signed POST IUD INSTRUCTIONS You may have irregular bleeding during the first 3 months of use. You may have mild-severe cramping for the next 48 hours. You may use over the counter medication (Motrin, Tylenol) as needed. Your IUD must be removed or replaced based on the following table: IUD Type Removed or replaced within: Mona 3 years Kyleena 5 years Mirena 8 years Liletta 8 years Paragard 10 years Call the office for signs/symptoms of infection such as severe cramping, fever, or unusual bleeding. Check for string placement as instructed by your doctor. If you have any additional questions, please contact the office. Jose Rojas RN 10/21/2024 1:10 PM Addendum Pt called office for medication refill-Norethindrone. This RN then asked Pt if she planned to come to appt today with CP to discuss ovarian cysts.. Pt states No, I just don't feel well. Pt states she still would like to get IUD placed. Pt asking what IUD Dr. Marin recommends. Appt scheduled for 11/02/24 for IUD insertion. Order pending-please complete per your recommendations and file. Will then just need to contact Pt and inform her on what IUD JG recommends AND side effects. Reviewed with Pt use of Ibuprofen prior to appt and eating beforehand. Refill request pending as well. Pt aware JG out of office today and returns Friday. Pt voiced understanding. Requested Prescriptions Pending Prescriptions Disp Refills norethindrone (AYGESTIN) 5 mg tablet 30 tablet 0 Sig: Take 1 tablet by mouth every 8 hours for 5 days, THEN 1 tablet two times a day for 5 days, THEN 1 tablet once daily for 5 days. TOMMIE Villalpando Tara, RN 10/21/2024 1:10 PM Signed Addended by: JOSE ROJAS on: 10/21/2024 01:10 PM Modules accepted: Shahnaz Santana MD 10/22/2024 11:15 AM Signed Addended by: SHAHNAZ MARIN on: 10/22/2024 11:15 AM Modules accepted: Jose Krueger RN 10/22/2024 4:43 PM Signed Pt notified and advised on side effects of hormonal IUDs and advised that it is not recommended to take Aygestin TID, and to follow Rx instructions. Pt asking for Rx to be sent to [place] AND Pt will call and have Rx transferred. Pt voiced understanding and IUD insertion appt scheduled for 11/02/24. Jose Rojas RN Allergies As of Date: 10/21/2024 Noted Allergy Reaction LATEX 07/09/2024 9 - Itching Date Reviewed: 10/08/2024 Reviewed by: Shahnaz Marin MD - Fully Assessed Reason for Visit: Abnormal uterine bleeding [Other] IUD [60] Primary Visit Diagnosis:Encounter for IUD insertion [Z30.430] Other Visit Diagnosis:Encounter for insertion of intrauterine contraceptive device [Z30.430] Order(s):INSERT INTRAUTERINE DEVICE [[id number]] Order #: [id number] norethindrone (AYGESTIN) 5 mg tabletTake 1 tablet by mouth every 8 hours for 5 days, THEN 1 tablet two times a day for 5 days, THEN 1 tablet once daily for 5 days.Disp: 30 tabletRfl: 0 Prescriptions as of 10/22/2024 - norethindrone (AYGESTIN) 5 mg tablet Take 1 tablet by mouth every 8 hours for 5 days, THEN 1 tablet two times a day for 5 days, THEN 1 tablet once daily for 5 days. - dulaglutide (TRULICITY) 1.5 mg/0.5 mL pen injector Inject 1.5 mg subcutaneously one time a week. - hydrOXYzine HCl (ATARAX) 25 mg tablet Take 25 mg by mouth four times a day as needed. - amitriptyline (ELAVIL) 50 mg tablet Take 50 mg by mouth daily at bedtime. Problem List As Of Date 10/21/2024 Noted Resolved Uncomplicated asthma [J45.909] 05/14/2024 Attention deficit hyperactivity disorder (ADHD)*05/14/2024 Episodic mood disorder (HCC) [F39] 06/06/2014 Foster care (status) [Z62.21] 08/25/2013 Ovarian cyst, right [N83.201] 07/15/2024 Paratubal cyst [N83.8] 07/15/2024 Other instructions from your clinician: POST IUD INSTRUCTIONS You may have irregular bleeding during (more content not included)... Normal [facility] CBC panel Auto (Bld)on 10-08 Erythrocyte distribution width (RBC) [Ratio] 13.0 % Normal 11.5-15.0 [facility] Comment on above: Order Comment: Speci men Type: BLOOD SPECIMEN Ordering Facility: [facility] Address: [address] [place] [address] Performed By: #### 5 8410-2 #### [facility] CLIA [id number] [address] [place] [address] [place] Hematocrit (Bld) [Volume fraction] 45.4 % Normal 36.0-46.0 [facility] Comment on above: Order Comment: Speci men Type: BLOOD SPECIMEN Ordering Facility: [facility] Address: [address] [place] [address] Performed By: #### 5 8410-2 #### [facility] CLIA [id number] [address] [place] [address] [place] Hemoglobin (Bld) [Mass/Vol] 15.1 g/dL Normal 11.5-15.5 [facility] Comment on above: Order Comment: Speci men Type: BLOOD SPECIMEN Ordering Facility: [facility] Address: [address] [place] [address] Performed By: #### 5 8410-2 #### [facility] CLIA [id number] [place] [address] [place] MCH (RBC) [Entitic mass] 28.8 pg Normal 26.0-34.0 [facility] Comment on above: Order Comment: Speci men Type: BLOOD SPECIMEN Ordering Facility: [facility] Address: [address] [place] [address] Performed By: #### 5 8410-2 #### [facility] [place] [id number] [place] [address] [place] MCHC (RBC) [Mass/Vol] 33.3 g/dL Normal 30.5-36.0 [facility] Comment on above: Order Comment: Speci men Type: BLOOD SPECIMEN Ordering Facility: [facility] Address: [address] [place] [address] Performed By: #### 5 8410-2 #### [facility] [place] [id number] [address] [place] [address] [place] MCV (RBC) [Entitic vol] 86.6 fL Normal 80.0-100.0 [facility] Comment on above: Order Comment: Speci men Type: BLOOD SPECIMEN Ordering Facility: [facility] Address: [address] [place] [address] Performed By: #### 5 8410-2 #### [facility] [place] [id number] [address] [place] [address] [place] Nucleated RBC (Bld) [#/Vol] 10*3/uL Normal <0.01 [facility] Comment on above: Order Comment: Speci men Type: BLOOD SPECIMEN Ordering Facility: [facility] Address: [address] [place] [address] Performed By: #### 5 8410-2 #### [facility] [place] [id number] [address] [place] [address] [place] Platelet mean volume (Bld) [Entitic vol] 9.5 fL Normal 9.0-12.7 [facility] Comment on above: Order Comment: Speci men Type: BLOOD SPECIMEN Ordering Facility: [facility] Address: [address] [place] [address] Performed By: #### 5 8410-2 #### [facility] CLIA [id number] [address] [place], [place] [id number] [facility] [place] Platelets (Bld) [#/Vol] 264 10*3/uL Normal 150-400 [facility] Comment on above: Order Comment: Speci men Type: BLOOD SPECIMEN Ordering Facility: [facility] Address: [address] [place] [address] Performed By: #### 5 8410-2 #### [facility] CLIA [id number] [address] [place] [address] [place] RBC (Bld) [#/Vol] 5.24 10*6/uL High 3.90-5.20 [facility] Comment on above: Order Comment: Speci men Type: BLOOD SPECIMEN Ordering Facility: [facility] Address: [address] [place] [address] Performed By: #### 5 8410-2 #### [facility] CLIA [id number] [address] [place] [address] [place] WBC (Bld) [#/Vol] 4.47 10*3/uL Normal 3.70-11.00 [facility] Comment on above: Order Comment: Speci men Type: BLOOD SPECIMEN Ordering Facility: [facility] Address: [address] [place] [address] Performed By: #### 5 8410-2 #### [facility] CLIA [id number] [address] [place], [place] [id number] [facility] [place] Comprehensive metabolic 2000 panelon 10-08-2024 Albumin [Mass/Vol] 4.1 g/dL Normal 3.9-4.9 [facility] Comment on above: Order Comment: Speci men Type: BLOOD SPECIMEN Ordering Facility: [facility] Address: [address] [place] [address] Performed By: #### 2 4323-8 #### [facility] CLIA [id number] [address] [place] [address] [place] ALP [Catalytic activity/Vol] 69 U/L Normal 34-123 [facility] Comment on above: Order Comment: Speci men Type: BLOOD SPECIMEN Ordering Facility: [facility] Address: [address] [place] [address] Performed By: #### 2 4323-8 #### [facility] CLIA [id number] [address] [place] [address] [place] [Catalytic activity/Vol] 23 U/L Normal 7-38 [facility] Comment on above: Order Comment: Speci men Type: BLOOD SPECIMEN Ordering Facility: [facility] Address: [address] [place] [address] Performed By: #### 2 4323-8 #### [facility] [place] [id number] [place] [address] [place] Anion gap [Moles/Vol] 8 mmol/L Normal 8-15 [facility] Comment on above: Order Comment: Speci men Type: BLOOD SPECIMEN Ordering Facility: [facility] Address: [address] [place] [address] Performed By: #### 2 4323-8 #### [facility] [place] [id number] [place] [address] [place] AST [Catalytic activity/Vol] 24 U/L Normal 13-35 [facility] Comment on above: Order Comment: Speci men Type: BLOOD SPECIMEN Ordering Facility: [facility] Address: [address] [place] [address] Performed By: #### 2 4323-8 #### [facility] CLIA [id number] [address] [place] [address] [place] Bilirubin [Mass/Vol] 0.3 mg/dL Normal 0.2-1.3 [facility] Comment on above: Order Comment: Speci men Type: BLOOD SPECIMEN Ordering Facility: [facility] Address: [address] [place] [address] Performed By: #### 2 4323-8 #### [facility] CLIA [id number] [address] [place] [address] [place] Calcium [Mass/Vol] 9.1 mg/dL Normal 8.5-10.2 [facility] Comment on above: Order Comment: Speci men Type: BLOOD SPECIMEN Ordering Facility: [facility] Address: [address] [place] [address] Performed By: #### 2 4323-8 #### [facility] CLIA [id number] [place] [address] [place] Chloride [Moles/Vol] 104 mmol/L Normal 98-107 [facility] Comment on above: Order Comment: Speci men Type: BLOOD SPECIMEN Ordering Facility: [facility] Address: [address] [place] [address] Performed By: #### 2 4323-8 #### [facility] CLIA [id number] [address] [place] [address] [place] CO2 [Moles/Vol] 26 mmol/L Normal 22-30 [facility] Comment on above: Order Comment: Speci men Type: BLOOD SPECIMEN Ordering Facility: [facility] Address: [address] [place] [address] Performed By: #### 2 4323-8 #### [facility] CLIA [id number] [place] [address] [place] Creatinine [Mass/Vol] 0.64 mg/dL Normal 0.58-0.96 [facility] Comment on above: Order Comment: Speci men Type: BLOOD SPECIMEN Ordering Facility: [facility] Address: [address] [place] [address] Performed By: #### 2 4323-8 #### [facility] CLIA [id number] [address] [place] [address] [place] Creatinine and Glomerular filtration rate.predicted panel (S/P/Bld) 124 mL/min/1.73m??? Normal >=60 [facility] Comment on above: Order Comment: Paulino lara Type: BLOOD SPECIMEN Ordering Facility: [facility] Address: [address] [place] [address] Result Comment: Donna mated Glomerular Filtration Rate (eGFR) is calculated using the 2020 CKD-EPI creatinine equation. This equation utilizes serum creatinine, sex, and age as parameters. The creatinine assay has traceable calibration to isotope dilution-mass spectrometry. Refer to KDIGO guidelines for clinical interpretation. In patients with unstable renal function, e.g. those with acute kidney injury, the eGFR may not accurately reflect actual GFR. Performed By: #### 2 4323-8 #### [facility] CLIA [id number] [address] [place] [address] [place] Glucose [Mass/Vol] 99 mg/dL Normal 74-99 [facility] Comment on above: Order Comment: Paulino lara Type: BLOOD SPECIMEN Ordering Facility: [facility] Address: [address] [place] [address] Result Comment: The [place] [employer] (ADA) provides guidance for cutoff values for fasting glucose and random glucose. The ADA defines fasting as no caloric intake for at least 8 hours. Fasting plasma glucose results between 100 to 125 mg/dL indicate increased risk for diabetes (prediabetes). Fasting plasma glucose results greater than or equal to 126 mg/dL meet the criteria for diagnosis of diabetes. In the absence of unequivocal hyperglycemia, results should be confirmed by repeat testing. In a patient with classic symptoms of hyperglycemia or hyperglycemic crisis, random plasma glucose results greater than or equal to 200 mg/dL meet the criteria for diagnosis of diabetes. Reference: Standards of Medical Care in Diabetes 2016, [place] [employer] Association. Diabetes Care. 2016.39(Suppl 1). Performed By: #### 2 4323-8 #### [facility] CLIA [id number] [address] [place] [address] [place] Potassium [Moles/Vol] 4.4 mmol/L Normal 3.7-5.1 [facility] Comment on above: Order Comment: Paulino [facility] Type: BLOOD SPECIMEN Ordering Facility: [facility] Address: [address] [place] [address] Performed By: #### 2 4323-8 #### [facility] CLIA [id number] [place] [address] [place] Protein [Mass/Vol] 7.0 g/dL Normal 6.3-8.0 [facility] Comment on above: Order Comment: Speci men Type: BLOOD SPECIMEN Ordering Facility: [facility] Address: [address] [place] [address] Performed By: #### 2 4323-8 #### [facility] CLIA [id number] [place] [address] [place] Sodium [Moles/Vol] 138 mmol/L Normal 136-144 [facility] Comment on above: Order Comment: Speci men Type: BLOOD SPECIMEN Ordering Facility: [facility] Address: [address] [place] [address] Performed By: #### 2 4323-8 #### [facility] CLIA [id number] [address] [place] [address] [place] Urea nitrogen [Mass/Vol] 8 mg/dL Normal 7-21 [facility] Comment on above: Order Comment: Speci men Type: BLOOD SPECIMEN Ordering Facility: [facility] Address: [address] [place] [address] Performed By: #### 2 4323-8 #### [facility] CLIA [id number] [address] [place] [address] [place] ED NOTEon 10-08-2024 ED NOTE HNO ID: [id number] Author: ELAINE BORJAS RN Service: ? Author Type: Registered Nurse Type: ED Notes Filed: 10/08/2024 08:08 Note Text: AVS reviewed with patient,all questions answered. PIV removed. Patient ambulates out of the ED with an upright steady gait. [facility] ED NOTE HNO ID: [id number] Author: IAM CHENG RN Service: ? Author Type: Registered Nurse Type: ED Notes Filed: 10/08/2024 05:46 Note Text: Pt aware urine is needed [facility] ED NOTE HNO ID: [id number] Author: JACKIE PIERRE RN Service: ? Author Type: Registered Nurse Type: ED Notes Filed: 10/08/2024 04:18 Note Text: Pt presents to ED from home for complaint of episodes of irregular menstrual bleeding since February and a general feeling of weakness x 2 days. Pt has had several ultrasounds done and has been dx's with uterine fibroids. Pt's CHERRY PICKER OPERATOR MOLDED CANDLES WICKER/CNM was last seen in June (Shahnaz Rush). Pt states that her periods are lasting 12+ days with spotting in between. Pt is in no acute distress during triage. No shortness of breath or dizziness noted. Plan of care -Monitor Patient's Vital Signs for changes in condition -Monitor patient for changes in pain -Maintain patient safety and privacy -Provide comfort measures -Call light in place -Siderails up, bed in locked and low position [facility] ED PROV NOTEon 10-08-2024 ED PROV NOTE HNO ID: [id number] Author: ANTHONY TINOCO PA-C Service: ? Author Type: Physician Rubber Attacher Type: ED Provider Notes Filed: 10/08/2024 17:23 Note Text: ED Provider Note Patient Name: Lalitha Garcia : 1995 SERVICE DATE: 10/08/24 History Patient presents with: Weakness: Weakness x 2 days Irregular Menstrual Cycle Patient is a 28-year-old female with past medical history of uterine fibroid and ovarian cyst who presents to the emergency department with concern of generalized weakness and abnormal vaginal bleeding. Patient states she has had this happening intermittently. Last time she had a bad episode like this was in February. She was started on medication by her CHERRY PICKER OPERATOR to stop the bleeding. Patient states that she has been having spotting on and off for 12 days. Is not filling up more than 1 pad an hour. No associated pain, nausea or vomiting. Patient states she was supposed to see her CHERRY PICKER OPERATOR again for follow-up 2 days ago but missed the appointment. Bleeding has currently improved. History reviewed. No pertinent past medical history. PAST SURGICAL HISTORY Procedure Laterality Date - TONSILLECTOMY AND ADENOIDECTOMY No family history on file. Social History Tobacco Use - Smoking status: Every Day Current packs/day: 0.25 Types: Cigarettes - Smokeless tobacco: Never Vaping Use - Vaping status: Never Used Substance and Sexual Activity - Alcohol use: Not Currently - Drug use: Not Currently Types: Marijuana - Sexual activity: Yes Partners: Male control/protection: None ALLERGIES Allergen Reactions - Latex Itching Review of Systems Constitutional: Negative for chills and fever. Eyes: Negative for visual disturbance. Respiratory: Negative for chest tightness and shortness of breath. Cardiovascular: Negative for chest pain. Gastrointestinal: Positive for abdominal pain. Negative for nausea and vomiting. Genitourinary: Positive for vaginal bleeding. Negative for dysuria, frequency, genital sores, pelvic pain, vaginal discharge and vaginal pain. Allergic/Immunologic: Negative for immunocompromised state. Neurological: Negative for dizziness and light-headedness. Psychiatric/Behavioral: Negative for suicidal ideas. All other systems reviewed and are negative. Physical Exam Vitals [10/08/24 0401] BP Pulse Temp Temp src Resp SpO2 Weight Height 148/92 (!) 94 36.5 ?C (97.7 ?F) Oral 17 97 % (!) 171.5 kg (378 lb) 1.727 m (5' 8) Physical Exam Vitals and nursing note reviewed. Constitutional: General: She is not in acute distress. Appearance: Normal appearance. She is not ill-appearing, toxic-appearing or diaphoretic. HENT: Head: Normocephalic and atraumatic. Cardiovascular: Rate and Rhythm: Normal rate and regular rhythm. Pulses: Normal pulses. Heart sounds: Normal heart sounds. Pulmonary: Effort: Pulmonary effort is normal. Breath sounds: Normal breath sounds. Abdominal: General: Abdomen is flat. Bowel sounds are normal. Palpations: Abdomen is soft. Tenderness: There is no abdominal tenderness. Musculoskeletal: General: Normal range of motion. Cervical back: Normal range of motion and neck supple. Skin: General: Skin is warm. Neurological: Mental Status: She is alert and oriented to person, place, and time. Psychiatric: Mood and Affect: Mood normal. Behavior: Behavior normal. Diagnostic Testing ED Labs Ordered and Reviewed COMPLETE BLOOD COUNT - Abnormal; Notable for the following components: Result Value Ref Range RBC 5.24 (*) 3.90 - 5.20 m/uL All other components within normal limits COMPREHENSIVE METABOLIC PANEL - Normal URINE HCG (ED POC) URINALYSIS (WITH MICROSCOPIC) WITH CULTURE IF INDICATED Procedures ED Course / Clinical Impression Clinical Impressions as of 10/08/24 1718 Irregular menstrual bleeding History of ovarian cyst MDM / Disposition / Plan Patient was seen in the emergency department for abnormal vaginal bleeding. On exam, patient is well-appearing, in no acute distress. Abdomen is soft, nontender. Triage notes, medical records, nursing notes were reviewed Patient states overall bleeding is improved at this time. Lab work was unremarkable. Patient declined getting urine sample for hCG and UA. Has no UTI symptoms. Given IV fluids. Declined pelvic exam. Patient requesting referral for CHERRY PICKER OPERATOR in this area as she recently moved here from [place]. Patient has no pain so do not feel imaging is indicated at this time. This was provided to her as well as appointment request for CHERRY PICKER OPERATOR and PCP. Strict return precautions and close PCP follow-up were discussed. All of her questions were answered. Patient was discharged in stable condition. History and Record Review External record(s) reviewed: prior outpatient record and prior labs/imaging. Findings from review of outpatient records: outpatient OBGYN visit on 07/09/2024 Findings from review of (more content not included)... [facility] POLYSOMNOGRAM (PSG)/HOME SLE EP APNEA TEST (HSAT)on 09-15-2024 POLYSOMNOGRAM (PSG)/HOME SLEEP APNEA TEST (HSAT) [facility] at [address], [address], [place] [address] ; Home Sleep Apnea Test (HSAT) Study Report Name: LALITHA GARCIA Date of Study: 09/15/2024 [facility]#: [id number] Age: 28 (: 1995) ESS: Neck Circ. (cm): 44.0 Height (cm): 172.0 Weight (kg): 174.0 BMI: 58.8 Referring Provider: RIN MORGAN Mailcode: Sleep history: The patient is a 28 year old female with a history of daytime sleepiness, fatigue, daytime napping, snoring, witnessed apneas, waking up choking, gasping, snorting, multiple awakenings from sleep, waking up with dry mouth/sore throat, and mouth breathing. The patient is here for assessment of obstructive sleep apnea. The patient endorses being a habitual side and prone sleeper. Pertinent medical history: Allergies, Chronic obstructive pulmonary disease, Class III obesity, Depression, Hypertension Medications: Elavil, Trulicity, Atarax Sleep procedure: PSG unattended Type III, minimum of 4 parameters (17739) Procedure: This study was performed using a Type III ambulatory PSG device and was unattended. The patient was instructed on proper use of the device by a registered hematology technologist. The monitored parameters included heart rate, oxygen saturation, continuous airflow with thermistor and nasal pressure transducer, snoring via nasal pressure transducer, chest and abdominal effort, and body position. YOSEPH definition: Respiratory event index (YOSEPH), calculated as respiratory events x 60 / TRT (total recording time in minutes). Note: the apnea hypopnea index has been replaced by the respiratory event index for home sleep apnea test. Since the home sleep apnea test does not measure sleep, the YOSEPH is most accurate index of respiratory events. The YOSEPH is a surrogate of the AHI per the AASM Manual for Scoring of Sleep and Associated Events version 3. Apnea definition: The peak signal excursions drop by >90% of pre-event baseline using an oronasal thermal sensor (diagnostic study), PAP device flow (titration study) or an alternative apnea sensor (diagnostic study). The duration of the >90% drop in signal excursion is >=10 seconds. Hypopnea definition: The peak signal excursions drop by >= 30% of pre-event baseline using nasal pressure (diagnostic study), PAP device flow (titration study) or an alternative hypopnea sensor (diagnostic study). The duration of the >= 30% drop in signal excursion is >=10 seconds. There is a greater than or equal to 3% oxygen desaturation from pre-event baseline. RESPIRATORY DATA: The study started at 02:34:48 and ended at 06:36:36 and the total recording time was 242 minutes. By convention, sleep is assumed for the whole recording. Snoring was noted. There was a total of 289 respiratory events. Of these events, the total number of apneas was 6 (6 obstructive, 0 mixed, and 0 central (0.0%)) and 283 hypopneas. The central apnea index (ARELIS) was 0.0. The respiratory event index (YOSEPH) was 71.7 events per hour of study time. The mean oxygen saturation during the study was 90.0%, with a minimum oxygen saturation of 50.0%. The patient spent 90.6 minutes at oxygen saturation measured less than 90% (37.5% of recording time) and 82.1 minutes at oxygen saturation measured at or less than 88% (33.9% of recording time). Time YOSEPH/AHI Supine 34.5 min 76.5 Off-Supine 207.5 min 70.8 Total 242.0 min 71.7 ECG DATA: The average heart rate was 83 bpm with a range of 53 bpm to 122 bpm. ICSD DIAGNOSIS: Obstructive Sleep Apnea Syndrome [G47.33] IMPRESSION/RECOMMENDATIONS: 1. This study confirms a diagnosis of severe obstructive sleep apnea. 2. The results of this study may represent an underestimation of the degree of obstructive sleep apnea, especially hypopneas, because of the known limitations of HSAT, such as inability to record arousals because EEG is not recorded. 3. Untreated sleep apnea is associated with a variety of consequences including but not limited to hypertension, heart disease, stroke, obesity and daytime sleepiness that can affect normal daytime functioning. 4. PAP therapy is the usual first line therapy. Other treatment options for DARWIN may include weight loss, positional therapy, oral appliance, upper airway surgery, upper airway stimulation, treatment of allergies and avoidance of alcohol and sedating medications (such as opioids, benzodiazepines, and muscle relaxers) that can cause respiratory depression. INTERPRETING PHYSICIAN: Abilio Méndez MD I attest that I have performed epoch by epoch review of the entire raw data and have found this study to be technically adequate. Report Digitally Signed By: ABILIO MÉNDEZ (09/20/2024 12:45:41 PM) Normal [facility] 09-11-2024 [facility] HNO ID: [id number] Author: FANNY VALIENTE RDMS Service: Radiology Author Type: Landscape Gardener Type: [facility] Filed: 09/11/2024 10:48 Note Text: Radiology Service Progress Note PATIENT NAME: Lalitha Garcia DATE OF SERVICE: September 11, 2024 TIME: 10:48 AM PATIENT IDENTITY VERIFICATION COMPLETED USING TWO (2) IDENTIFIERS: Name and Date of confirmed by patient verbally. FALL SCREENING: Has the patient had 2 falls in the last year or 1 fall with injury or currently using an Ambulatory Assistive Device (Walker, Cane, Wheelchair, Crutches, etc.)? Emergency Room Patient: Screened in ED PATIENT GENDER DATA: Assigned female at . status: : No status: NO. PATIENT RELEVANT IMPLANT DATA REVIEWED: Not Applicable PATIENT PRESENTS WITH AN IMPLANTABLE OR ATTACHED SUPERVISOR CUTTING AND BONING: No RADIOLOGY DEPARTMENT: Ultrasound RUQ PERIPHERAL IV DATA: Inpatient: see LDA documentation SIGNED BY: Fanny Valiente RDMS September 11, 2024 10:48 AM [facility] CBC W Auto Differential pane l (Bld)on 09-11-2024 Basophils (Bld) [#/Vol] 0.04 10*3/uL Normal <0.11 [facility] Comment on above: Order Comment: Speci men Type: BLOOD SPECIMEN Ordering Facility[facility] Address: [address] [place] [address] Performed By: #### 5 7021-8 #### [facility] CLIA [id number] [address] [place] [address] [place] Basophils/100 WBC (Bld) 0.7 % [facility] Comment on above: Order Comment: Speci men Type: BLOOD SPECIMEN Ordering Facility: [facility] Address: [address] [place] [address] Performed By: #### 5 7021-8 #### [facility] CLIA [id number] [address] [place] [address] [place] Differential cell count method Nom (Bld) Auto [facility] Comment on above: Order Comment: Speci men Type: BLOOD SPECIMEN Ordering Facility: [facility] Address: [address] [place] [address] Performed By: #### 5 7021-8 #### [facility] CLIA [id number] [address] [place] [address] [place] Eosinophils (Bld) [#/Vol] 0.19 10*3/uL Normal <0.46 [facility] Comment on above: Order Comment: Speci men Type: BLOOD SPECIMEN Ordering Facility: [facility] Address: [address] [place] [address] Performed By: #### 5 7021-8 #### [facility] CLIA [id number] [place] [address] [place] Eosinophils/100 WBC (Bld) 3.3 % Normal [facility] Comment on above: Order Comment: Speci men Type: BLOOD SPECIMEN Ordering Facility: [facility] Address: [address] [place] [address] Performed By: #### 5 7021-8 #### [facility] CLIA [id number] [address] [place] [address] [place] Erythrocyte distribution width (RBC) [Ratio] 13.5 % Normal 11.5-15.0 [facility] Comment on above: Order Comment: Speci men Type: BLOOD SPECIMEN Ordering Facility: [facility] Address: [address] [place] [address] Performed By: #### 5 7021-8 #### [facility] CLIA [id number] [address] [place] [address] [place] Hematocrit (Bld) [Volume fraction] 42.8 % Normal 36.0-46.0 [facility] Comment on above: Order Comment: Speci men Type: BLOOD SPECIMEN Ordering Facility: [facility] Address: [address] [place] [address] Performed By: #### 5 7021-8 #### [facility] CLIA [id number] [address] [place] [address] [place] Hemoglobin (Bld) [Mass/Vol] 14.1 g/dL Normal 11.5-15.5 [facility] Comment on above: Order Comment: Speci men Type: BLOOD SPECIMEN Ordering Facility: [facility] Address: [address] [place] [address] Performed By: #### 5 7021-8 #### [facility] CLIA [id number] [address] [place] [address] [place] Immature granulocytes (Bld) [#/Vol] 10*3/uL Normal <0.10 [facility] Comment on above: Order Comment: Speci men Type: BLOOD SPECIMEN Ordering Facility: [facility] Address: [address] [place] [address] Performed By: #### 5 7021-8 #### [facility] CLIA [id number] [place] [address] [place] Immature granulocytes/100 WBC (Bld) 0.2 % Normal [facility] Comment on above: Order Comment: Speci men Type: BLOOD SPECIMEN Ordering Facility: [facility] Address: [address] [place] [address] Performed By: #### 5 7021-8 #### [facility] CLIA [id number] [address] [place] [address] [place] Lymphocytes (Bld) [#/Vol] 2.22 10*3/uL Normal 1.00-4.00 [facility] Comment on above: Order Comment: Speci men Type: BLOOD SPECIMEN Ordering Facility: [facility] Address: [address] [place] [address] Performed By: #### 5 7021-8 #### [facility] CLIA [id number] [address] [place] [address] [place] Lymphocytes/100 WBC (Bld) 38.3 % Normal [facility] Comment on above: Order Comment: Speci men Type: BLOOD SPECIMEN Ordering Facility: [facility] Address: [address] [place] [address] Performed By: #### 5 7021-8 #### [facility] CLIA [id number] [address] [place] [address] [place] MCH (RBC) [Entitic mass] 28.9 pg Normal 26.0-34.0 [facility] Comment on above: Order Comment: Speci men Type: BLOOD SPECIMEN Ordering Facility: [facility] Address: [address] [place] [address] Performed By: #### 5 7021-8 #### [facility] CLIA [id number] [address] [place] [address] [place] MCHC (RBC) [Mass/Vol] 32.9 g/dL Normal 30.5-36.0 [facility] Comment on above: Order Comment: Speci men Type: BLOOD SPECIMEN Ordering Facility: [facility] Address: [address] [place] [address] Performed By: #### 5 7021-8 #### [facility] CLIA [id number] [place] [address] [place] MCV (RBC) [Entitic vol] 87.7 fL Normal 80.0-100.0 [facility] Comment on above: Order Comment: Speci men Type: BLOOD SPECIMEN Ordering Facility: [facility] Address: [address] [place] [address] Performed By: #### 5 7021-8 #### [facility] CLIA [id number] [place] [address] [place] Monocytes (Bld) [#/Vol] 0.47 10*3/uL Normal <0.87 [facility] Comment on above: Order Comment: Speci men Type: BLOOD SPECIMEN Ordering Facility: [facility] Address: [address] [place] [address] Performed By: #### 5 7021-8 #### [facility] CLIA [id number] [address] [place] [address] [place] Monocytes/100 WBC (Bld) 8.1 % Normal [facility] Comment on above: Order Comment: Speci men Type: BLOOD SPECIMEN Ordering Facility: [facility] Address: [address] [place] [address] Performed By: #### 5 7021-8 #### [facility] CLIA [id number] [place] [address] [place] Neutrophils (Bld) [#/Vol] 2.86 10*3/uL Normal 1.45-7.50 [facility] Comment on above: Order Comment: Speci men Type: BLOOD SPECIMEN Ordering Facility: [facility] Address: [address] [place] [address] Performed By: #### 5 7021-8 #### [facility] CLIA [id number] [place] [address] [place] Neutrophils/100 WBC (Bld) 49.4 % Normal [facility] Comment on above: Order Comment: Speci men Type: BLOOD SPECIMEN Ordering Facility: [facility] Address: [address] [place] [address] Performed By: #### 5 7021-8 #### [facility] CLIA [id number] [place] [address] [place] Nucleated RBC (Bld) [#/Vol] 10*3/uL Normal <0.01 [facility] Comment on above: Order Comment: Speci men Type: BLOOD SPECIMEN Ordering Facility: [facility] Address: [address] [place] [address] Performed By: #### 5 7021-8 #### [facility] CLIA [id number] [address] [place] [address] [place] Nucleated RBC/100 WBC (Bld) [Ratio] 0.0 /100 WBC Normal [facility] Comment on above: Order Comment: Speci men Type: BLOOD SPECIMEN Ordering Facility: [facility] Address: [address] [place] [address] Performed By: #### 5 7021-8 #### [facility] CLIA [id number] [address] [place] [address] [place] Platelet mean volume (Bld) [Entitic vol] 9.8 fL Normal 9.0-12.7 [facility] Comment on above: Order Comment: Speci men Type: BLOOD SPECIMEN Ordering Facility: [facility] Address: [address] [place] [address] Performed By: #### 5 7021-8 #### [facility] CLIA [id number] [address] [place] [address] [place] Platelets (Bld) [#/Vol] 266 10*3/uL Normal 150-400 [facility] Comment on above: Order Comment: Speci men Type: BLOOD SPECIMEN Ordering Facility: [facility] Address: [address] [place] [address] Performed By: #### 5 7021-8 #### [facility] CLIA [id number] [address] [place] [address] [place] RBC (Bld) [#/Vol] 4.88 10*6/uL Normal 3.90-5.20 [facility] Comment on above: Order Comment: Speci men Type: BLOOD SPECIMEN Ordering Facility: [facility] Address: [address] [place] [address] Performed By: #### 5 7021-8 #### [facility] CLIA [id number] [address] [place] [address] WBC (Bld) [#/Vol] 5.79 10*3/uL Normal 3.70-11.00 [facility] Comment on above: Order Comment: Speci men Type: BLOOD SPECIMEN Ordering Facility: [facility] Address: [address] [place] [address] Performed By: #### 5 7021-8 #### [facility] CLIA [id number] [address] [place] [address] [place] Comprehensive metabolic 2000 panelon 09-11-2024 Albumin [Mass/Vol] 4.0 g/dL Normal 3.9-4.9 [facility] Comment on above: Order Comment: Speci men Type: BLOOD SPECIMEN Ordering Facility: [facility] Address: [address] [place] [address] Performed By: #### 2 4323-8, [id number], 3040-3, 59274-4 #### [facility] CLIA [id number] [address] [place] [address] [place] ALP [Catalytic activity/Vol] 71 U/L Normal 34-123 [facility] Comment on above: Order Comment: Speci men Type: BLOOD SPECIMEN Ordering Facility: [facility] Address: [address] [place] [address] Performed By: #### 2 4323-8, [id number], 3040-3, #### [facility] CLIA [id number] [address] [place] [id number] [place] ALT [Catalytic activity/Vol] 20 U/L Normal 7-38 [facility] Comment on above: Order Comment: Speci men Type: BLOOD SPECIMEN Ordering Facility: [facility] Address: [address] [place] [address] Performed By: #### 2 4323-8, [id number], 3040-3, #### [facility] CLIA [id number] [address] [place] [id number] [place] Anion gap [Moles/Vol] 8 mmol/L Normal 8-15 [facility] Comment on above: Order Comment: Speci men Type: BLOOD SPECIMEN Ordering Facility: [facility] Address: [address] [place] [address] Performed By: #### 2 4323-8, [id number], 3, #### [facility] CLIA [id number] [address] [place], [place] [address] [place] AST [Catalytic activity/Vol] 17 U/L Normal 13-35 [facility] Comment on above: Order Comment: Speci men Type: BLOOD SPECIMEN Ordering Facility: [facility] Address: [address] [place] [address] Performed By: #### 2 4323-8, [id number], 3043, #### [facility] CLIA [id number] [place], [place] [address] [place] Bilirubin [Mass/Vol] 0.3 mg/dL Normal 0.2-1.3 [facility] Comment on above: Order Comment: Speci men Type: BLOOD SPECIMEN Ordering Facility: [facility] Address: [address] [place] [address] Performed By: #### 2 4323-8, [id number], 3040-3, #### [facility] CLIA [id number] [address] [place] [address] [place] Calcium [Mass/Vol] 9.0 mg/dL Normal 8.5-10.2 [facility] Comment on above: Order Comment: Speci men Type: BLOOD SPECIMEN Ordering Facility: [facility] Address: [address] [place] [address] Performed By: #### 2 4323-8, [id number], 3040-3, #### [facility] CLIA [id number] [address] [place] [address] [place] Chloride [Moles/Vol] 105 mmol/L Normal 98-107 [facility] Comment on above: Order Comment: Speci men Type: BLOOD SPECIMEN Ordering Facility: [facility] Address: [address] [place] [address] Performed By: #### 2 4323-8, [id number], 3040-3, #### [facility] CLIA [id number] [address] [place] [address] [place] CO2 [Moles/Vol] 25 mmol/L Normal 22-30 [facility] Comment on above: Order Comment: Speci men Type: BLOOD SPECIMEN Ordering Facility: [facility] Address: [address] [place] [address] Performed By: #### 2 4323-8, [id number], 3040-3, #### [facility] CLIA [id number] [address] [place] [address] [place] Creatinine [Mass/Vol] 0.62 mg/dL Normal 0.58-0.96 [facility] Comment on above: Order Comment: Speci men Type: BLOOD SPECIMEN Ordering Facility: [facility] Address: [address] [place] [address] Performed By: #### 2 4323-8, [id number], 3040-3, #### [facility] CLIA [id number] [address] [place], [place] [address] [place] Creatinine and Glomerular filtration rate.predicted panel (S/P/Bld) 125 mL/min/1.73m??? Normal >=60 [facility] Comment on above: Order Comment: Paulino lara Type: BLOOD SPECIMEN Ordering Facility: [facility] Address: [address] [place] [address] Result Comment: Donna mated Glomerular Filtration Rate (eGFR) is calculated using the 2020 CKD-EPI creatinine equation. This equation utilizes serum creatinine, sex, and age as parameters. The creatinine assay has traceable calibration to isotope dilution-mass spectrometry. Refer to KDIGO guidelines for clinical interpretation. In patients with unstable renal function, e.g. those with acute kidney injury, the eGFR may not accurately reflect actual GFR. Performed By: #### 2 4323-8, [id number], 0-3, #### [facility] CLIA [id number] [place], [place] [address] [place] Glucose [Mass/Vol] 106 mg/dL High 74-99 [facility] Comment on above: Order Comment: Paulino lara Type: BLOOD SPECIMEN Ordering Facility: [facility] Address: [address] [place] [address] Result Comment: The [place] [employer] (ADA) provides guidance for cutoff values for fasting glucose and random glucose. The ADA defines fasting as no caloric intake for at least 8 hours. Fasting plasma glucose results between 100 to 125 mg/dL indicate increased risk for diabetes (prediabetes). Fasting plasma glucose results greater than or equal to 126 mg/dL meet the criteria for diagnosis of diabetes. In the absence of unequivocal hyperglycemia, results should be confirmed by repeat testing. In a patient with classic symptoms of hyperglycemia or hyperglycemic crisis, random plasma glucose results greater than or equal to 200 mg/dL meet the criteria for diagnosis of diabetes. Reference: Standards of Medical Care in Diabetes 2016, [place] [employer] Association. Diabetes Care. 2016.39(Suppl 1). Performed By: #### 2 4323-8, [id number], 3040-3, #### [facility] CLIA [id number] [address] [place] [id number] [place] Potassium [Moles/Vol] 4.0 mmol/L Normal 3.7-5.1 [facility] Comment on above: Order Comment: Speci men Type: BLOOD SPECIMEN Ordering Facility: [facility] Address: [address] [place] [address] Performed By: #### 2 4323-8, [id number], 3040-3, #### [facility] CLIA [id number] [address] [place] [address] [place] Protein [Mass/Vol] 6.5 g/dL Normal 6.3-8.0 [facility] Comment on above: Order Comment: Speci men Type: BLOOD SPECIMEN Ordering Facility: [facility] Address: [address] [place] [address] Performed By: #### 2 4323-8, [id number], 0-3, #### [facility] CLIA [id number] [address] [place] [address] [place] Sodium [Moles/Vol] 138 mmol/L Normal 136-144 [facility] Comment on above: Order Comment: Speci men Type: BLOOD SPECIMEN Ordering Facility: [facility] Address: [address] [place] [address] Performed By: #### 2 4323-8, [id number], 03, #### [facility] CLIA [id number] [address] [place], [place] [address] [place] Urea nitrogen [Mass/Vol] 6 mg/dL Low 7-21 [facility] Comment on above: Order Comment: Speci men Type: BLOOD SPECIMEN Ordering Facility: [facility] Address: [address] [place], [place] [address] Performed By: #### 2 4323-8, [id number], 3040-3, #### [facility] CLIA [id number] [address] [place], [place] [address] [place] D dimer FEU PPP-mCncon 09-11 Fibrin D-dimer FEU (PPP) [Mass/Vol] 280 ng/mL FEU Normal <500 [facility] Comment on above: Order Comment: Speci men Type: BLOOD SPECIMEN Ordering Facility: [facility] Address: [facility] [place] [address] Performed By: #### 4 8065-7 #### [facility] CLIA [id number] [place], [place] [address] [facility] ED NOTEon 09-11-2024 ED NOTE HNO ID: [id number] Author: STEPHANIE PASTRANA RN Service: ? Author Type: Registered Nurse Type: ED Notes Filed: 09/11/2024 09:04 Note Text: Bed: ED-16 Expected date: Expected time: Means of arrival: Comments: [facility] ED NOTE HNO ID: [id number] Author: JULIO AVERY RN Service: Emergency Medicine Author Type: Registered Nurse Type: ED Notes Filed: 09/11/2024 09:05 Note Text: Pt c/o pain soreness under r breast that started today. No sob noted [facility] ED PROV NOTEon 09-11-2024 ED PROV NOTE HNO ID: [id number] Author: EMIR STATON PA-C Service: Emergency Medicine Author Type: Physician Rubber Attacher Type: ED Provider Notes Filed: 09/11/2024 11:49 Note Text: ED Provider Note Patient Name: Lalitha Garcia : 1995 SERVICE DATE: 09/11/24 History Patient presents with: pain under r breast 28-year-old female presents to the emergency department for concern of pain of her right chest wall/upper abdomen beneath her right breast. Onset yesterday. Thought maybe she slept wrong on her side. Feels like a soreness is tender and sore to touch. Denies skin changes. She states she had some shortness of breath last night and a little bit of chest pain this morning. The chest discomfort is not pleuritic in nature. Is felt nauseated without vomiting. Patient states she has been taking Tylenol and Motrin lately to help with migraines, that may be that could have been causing her pain. She has been taking at the dosing as prescribed and not excessively. She states she does not have a headache or migraine today. Denies neck or back pain, vision changes, numbness, weakness. No trauma. No history of DVT or PE. She denies lower extremity edema or pain. No abdominal surgical history. No past medical history on file. PAST SURGICAL HISTORY Procedure Laterality Date TONSILLECTOMY AND ADENOIDECTOMY No family history on file. Social History Tobacco Use Smoking status: Every Day Types: Cigarettes Smokeless tobacco: Never Vaping Use Vaping status: Never Used Substance and Sexual Activity Alcohol use: Not Currently Drug use: Yes Types: Marijuana Sexual activity: Yes Partners: Male control/protection: None ALLERGIES Allergen Reactions Latex Itching Review of Systems Constitutional: Negative for chills and fever. HENT: Negative for congestion, ear pain, rhinorrhea and sore throat. Eyes: Negative for pain. Respiratory: Positive for shortness of breath. Cardiovascular: Positive for chest pain. Gastrointestinal: Negative for abdominal pain, constipation, diarrhea, nausea and vomiting. Genitourinary: Negative for decreased urine volume, dysuria and hematuria. Musculoskeletal: Negative for back pain and neck pain. Skin: Negative for pallor and rash. Neurological: Negative for dizziness, syncope, weakness, light-headedness, numbness and headaches. Physical Exam Vitals [09/11/24 0904] BP Pulse Temp Temp src Resp SpO2 Weight Height 147/95 (!) 102 36.4 ?C (97.6 ?F) Oral 18 97 % (!) 174.6 kg (385 lb) -- Physical Exam Vitals and nursing note reviewed. Constitutional: General: She is not in acute distress. Appearance: She is well-developed. She is not diaphoretic. HENT: Head: Normocephalic and atraumatic. Eyes: Conjunctiva/sclera: Conjunctivae normal. Pupils: Pupils are equal, round, and reactive to light. Cardiovascular: Rate and Rhythm: Normal rate and regular rhythm. Heart sounds: Normal heart sounds. Pulmonary: Effort: Pulmonary effort is normal. No respiratory distress. Breath sounds: Normal breath sounds. Comments: Chest wall tenderness right side, beneath breast. No skin changes, no edema, erythema, warmth fluctuance. No breast tenderness. Chest: Chest wall: No tenderness. Abdominal: General: Bowel sounds are normal. There is no distension. Palpations: Abdomen is soft. Tenderness: There is abdominal tenderness (RUQ). Musculoskeletal: General: Normal range of motion. Cervical back: Normal range of motion and neck supple. Lymphadenopathy: Cervical: No cervical adenopathy. Skin: General: Skin is warm and dry. Neurological: Mental Status: She is alert and oriented to person, place, and time. Psychiatric: Mood and Affect: Mood normal. Diagnostic Testing ED Labs Ordered and Reviewed COMPREHENSIVE METABOLIC PANEL - Abnormal; Notable for the following components: Result Value Ref Range Glucose 106 (*) 74 - 99 mg/dL BUN 6 (*) 7 - 21 mg/dL All other components within normal limits MAGNESIUM - Normal D-DIMER - Normal Narrative: 500 ng/mL FEU is the D Dimer cutoff to exclude DVT (deep vein thrombosis) and PE (pulmonary embolism) in patients with a low pre test probability. Supplemental Comment: In patients over 50 years with a low pre test probability for DVT and/or PE, an age adjusted D dimer cutoff can be calculated as [age x 10] ng/mL FEU. For example, a patient of 88 years would have an age adjusted D dimer cutoff of 880 ng/mL FEU. For patients with a suspected DVT, a D dimer level below 500 ng/mL FEU has a negative predictive value of >98.9%, a sensitivity of >96.9% and a specificity of >35.7%. For patients with a suspected PE, a D dimer level below 500 ng/mL FEU has a negative predictive value of >98.5%, and a sensitivity of >96.5% and a specificity of >38.8%. Reference: Dora M, et al. YOLANDA 2014 311:1117 and Van Es N, et al. Faby Int Med 2016 165:253. HIGH SENSITIVIT (more content not included)... Normal [facility] EKGon 09-11-2024 Electrocardiogram Ventricular Rate : 8 6 BPM Atrial Rate : 87 BPM P-R Interval : 162 ms QRS Duration : 95 ms Q-T Interval : 378 ms QTC Calculation(Bazett) : 453 ms Calculated P [place] : 62 degrees Calculated R [place] : 89 degrees Calculated T [place] : 34 degrees Sinus rhythm Normal ECG no stemi 1009 Confirmed by NATAN BENTON MD ([id number]) on 09/11/2024 10:12:16 AM NAME : LALITHA GARCIA PID : [id number] : 1995 Gender : Female Race : Other ORD : Procedure Date : Sep 11 2024 09:35:02 Edit Date : Sep 11 2024 10:12:22 Diagnosis: Sinus rhythm Normal ECG no stemi 1009 Confirmed by NATAN BENTON MD ([id number]) on 09/11/2024 10:12:16 AM Test Reason : Location : 18 : ED -er16 Overread By : NATAN BENTON MD Edited By : NATAN BENTON MD Referred By : , Acquired by : , Normal [facility] HIGH SENSITIVITY TROPONIN T (INITIAL)on 09-11-2024 Troponin T.cardiac High sensitivity method [Mass/Vol] <6 Normal <12 [facility] Comment on above: Order Comment: Speci men Type: BLOOD SPECIMENOrdering Facility: [facility] Address: [address] [place] [address] Performed By: #### 2 4323-8, [id number], 3039-3, ####[facility] [id number] [place] [address] [place] HIGH SENSITIVITY TROPONIN T (SECOND)on 09-11-2024 Troponin T.cardiac High sensitivity method [Mass/Vol] <6 Normal <12 [facility] Comment on above: Order Comment: Paulino lara Type: BLOOD SPECIMEN Ordering [facility] Address: [address] [place] [address] Performed By: #### L [id number] #### [facility] CLIA [id number] [address] [place] [id number] [place] Lipase SerPl-cCncon 09-12-19 25 Lipase [Catalytic activity/Vol] 33 U/L Normal 16-61 [facility] Comment on above: Order Comment: Paulino lara Type: BLOOD SPECIMENOrdering Facility: [facility] Address: [address] [place] [address] Performed By: #### 2 4323-8, [id number], 3040-3, ####[facility] [id number] [place] [id number] [place] Magnesium SerPl-mCncon 09-11 Magnesium [Mass/Vol] 1.7 mg/dL Normal 1.7-2.3 [facility] Comment on above: Order Comment: Speci men Type: BLOOD SPECIMENOrdering Facility: [facility] Address: [place] [address] Performed By: #### 2 4323-8, [id number], 3040-3, 20933-5 ####[facility] [id number] [place] [address] [place] US ABD RIGHT UPPER QUADRANTo n 09-11-2024 US ABD RIGHT UPPER QUADRANT * * *Final Report* * * DATE OF EXAM: Sep 11 2024 10:47AM MMU 1032 - US ABD RIGHT UPPER QUADRANT / PROCEDURE REASON: RUQ pain, fever, elev WBC, Randall's sign * * * * Physician Interpretation * * * * EXAMINATION: RIGHT UPPER QUADRANT ULTRASOUND CLINICAL HISTORY: Right upper quadrant abdomen pain. TECHNIQUE: Sonography of the right upper quadrant was performed. Images were obtained and stored in a permanent archive. MQ: URUQ_2 COMPARISON: None. RESULT: Pancreas: Normal sonographic appearance. Portions obscured: tail Liver: Echotexture: Normal, homogeneous. Echogenicity: Normal Surface contour: Smooth Lesions: None. Biliary: No intrahepatic biliary duct dilation. CBD: 0.3 cm at the hilum. Gallbladder: Normal caliber -Contents: No cholelithiasis -Wall: Normal -Other: No pericholecystic fluid. Right Kidney: No hydronephrosis. Ascites: None. IMPRESSION: Normal sonographic appearance of the right upper quadrant. [employer]: MARY BETH Transcribe Date/Time: Sep 11 2024 10:56A Dictated by : SHIKHA SMALL MD This examination was interpreted and the report reviewed and electronically signed by: SHIKHA SMALL MD on Sep 11 2024 10:57AM EST [id number] Normal [facility] XR CHEST 1V FRONTAL PORTon 0 09-11-2024 XR CHEST 1V FRONTAL PORT * * *Final Report* * * DATE OF EXAM: Sep 11 2024 9:51AM MMX 5376 - XR CHEST 1V FRONTAL PORT / PROCEDURE REASON: Shortness of breath * * * * Physician Interpretation * * * * EXAMINATION: CHEST RADIOGRAPH (PORTABLE SINGLE VIEW AP) Exam Date/Time: 09/11/2024 9:51 AM CLINICAL HISTORY: Shortness of breath, Chest pain MQ: XCPR_5 Comparison: Chest radiograph dated 04/24/2017 RESULT: Lines, tubes, and devices: None. Lungs and pleura: Mild increased interstitial markings bilaterally. No focal lung consolidation. No significant pleural effusion or pneumothorax. Cardiomediastinal silhouette: Normal cardiomediastinal silhouette. Other: No acute bony abnormalities. IMPRESSION: Mild increased interstitial markings bilaterally. No focal lung consolidation. [employer]: P[employer] Transcribe Date/Time: Sep 11 2024 9:55A Dictated by : MAYCO GARCIA MD This examination was interpreted and the report reviewed and electronically signed by: MAYCO GARCIA MD on Sep 11 2024 9:57AM EST [id number] [facility] ED NOTEon 09-09-2024 ED NOTE HNO ID: [id number] Author: BLAS TAO RN Service: ? Author Type: Registered Nurse Type: ED Notes Filed: 09/09/2024 22:49 Note Text: Patient discharged. Discharge paperwork reviewed. Patient verbalized understanding. No issues or concerns verbalized. [facility] ED NOTE HNO ID: [id number] Author: KERA CROWDER RN Service: ? Author Type: Registered Nurse Type: ED Notes Filed: 09/09/2024 20:01 Note Text: Pt presents to the ED for an ongoing migraine that has been present the last two weeks. Pt took both advil and extra strength tylenol with no relief. Pt does have family history of migraines. [facility] ED PROV NOTEon 09-09-2024 ED PROV NOTE HNO ID: [id number] Author: BRIT PAUL DO Service: Emergency Medicine Author Type: Physician Type: ED Provider Notes Filed: 09/09/2024 23:20 Note Text: ED Provider Note Patient Name: Lalitha Garcia : 1995 SERVICE DATE: 09/09/24 History Patient presents with: Headache 28 year old female with PMH of ovarian cysts, obesity, HTN, and migraines presents to the ED today for persistent head ache lasting approximately 2 weeks. She states she frequently gets headaches but they have not lasted this long before. She states it has been interfering with her normal daily tasks. She endorses a muscular type pain at the base of her adolfo that wraps around her head to her left eye. She endorses occasional blurred vision along with photophobia. She denies any recent illness or fevers/chills. She has been taking tylenol and ibuprofen with minimal relief. She was just started on Trulicity for weight loss and is on daily labetalol for high blood pressure. No past medical history on file. PAST SURGICAL HISTORY Procedure Laterality Date TONSILLECTOMY AND ADENOIDECTOMY No family history on file. Social History Tobacco Use Smoking status: Every Day Types: Cigarettes Smokeless tobacco: Never Vaping Use Vaping status: Never Used Substance and Sexual Activity Alcohol use: Not Currently Drug use: Yes Types: Marijuana Sexual activity: Yes Partners: Male control/protection: None ALLERGIES Allergen Reactions Latex Itching Review of Systems Constitutional: Negative for chills and fever. HENT: Negative for congestion, ear pain, rhinorrhea and sore throat. Eyes: Positive for visual disturbance (Intermittent blurred vision). Negative for photophobia. Respiratory: Negative for cough, shortness of breath and wheezing. Cardiovascular: Negative for chest pain, palpitations and leg swelling. Gastrointestinal: Negative for abdominal pain, constipation, diarrhea, nausea and vomiting. Genitourinary: Negative for dysuria, frequency, hematuria and urgency. Musculoskeletal: Positive for neck pain. Negative for arthralgias, back pain and myalgias. Skin: Negative for rash and wound. Allergic/Immunologic: Negative for environmental allergies and immunocompromised state. Neurological: Positive for headaches. Negative for dizziness, weakness and numbness. Hematological: Does not bruise/bleed easily. Physical Exam Vitals BP Pulse Temp Temp src Resp SpO2 Weight Height 09/09/24200009/09/24200009/09/24200009/09/24200009/09/24200009/09/24200009/09/242000 -- 148/92 (!) 107 36.1 ?C (97 ?F) Temporal 22 98 % (!) 174.8 kg (385 lb 5.8 oz) Physical Exam Vitals and nursing note reviewed. Constitutional: General: She is not in acute distress. Appearance: Normal appearance. She is obese. She is not ill-appearing or toxic-appearing. HENT: Head: Normocephalic and atraumatic. Comments: There is tenderness to palpation along the distribution of greater and lesser occipital nerves bilaterally. No tenderness to palpation of temporal arteries bilaterally. Mouth/Throat: Mouth: Mucous membranes are moist. Pharynx: Oropharynx is clear. No oropharyngeal exudate or posterior oropharyngeal erythema. Eyes: Extraocular Movements: Extraocular movements intact. Pupils: Pupils are equal, round, and reactive to light. Neck: Comments: Palpation in this region recreates patient's shooting headache pains. There is underlying palpable musculature fullness and spasm. Cardiovascular: Rate and Rhythm: Normal rate and regular rhythm. Pulses: Normal pulses. Heart sounds: Normal heart sounds. No murmur heard. No friction rub. No gallop. Pulmonary: Effort: Pulmonary effort is normal. No respiratory distress. Breath sounds: Normal breath sounds. No decreased breath sounds, wheezing, rhonchi or rales. Abdominal: General: Abdomen is protuberant. Bowel sounds are normal. Palpations: Abdomen is soft. There is no mass. Tenderness: There is no abdominal tenderness. There is no right CVA tenderness, left CVA tenderness, guarding or rebound. Musculoskeletal: General: No swelling or deformity. Normal range of motion. Cervical back: Normal range of motion and neck supple. No rigidity. No muscular tenderness. Right lower leg: No edema. Left lower leg: No edema. Comments: No midline tenderness, deformities, crepitus or step-offs to palpation of cervical, thoracic, lumbar or sacral spine. No external signs of trauma. Lymphadenopathy: Cervical: No cervical adenopathy. Skin: General: Skin is warm and dry. Capillary Refill: Capillary refill takes less than 2 seconds. Neurological: General: No focal deficit present. Mental Status: She is alert and oriented to person, place, and time. Comments: Cranial nerves II through XII intact grossly bilaterally. Pupils are equal, round and reactive. Extraoccular motion is intact. No visual field (more content not included)... Normal [facility] ED NOTEon 07-20-2024 ED NOTE HNO ID: [id number] Author: JENARO FIORE RN Service: Emergency Medicine Author Type: Registered Nurse Type: ED Notes Filed: 07/20/2024 18:58 Note Text: ..Patient was given a disposition of Eloped Lab Studies There are no in process or resulted labs at this time Radiology Studies There are no in process or resulted radiology studies at this time [facility] ED NOTE HNO ID: [id number] Author: AVERY GOVEA RN Service: ? Author Type: Registered Nurse Type: ED Notes Filed: 07/20/2024 16:20 Note Text: Called twice, no answer in lobby. [facility] ED NOTE HNO ID: [id number] Author: SKIP BRAGG, TOMMIE Service: ? Author Type: Registered Nurse Type: ED Notes Filed: 07/20/2024 12:25 Note Text: C/o tremors/vertigo /ringing onset 2 hrs Denies chest pain [facility] ED Triage Noteon 07-20-2024 ED Triage Note HNO ID: [id number] Author: EARLENE CLAUDIO DO Service: Emergency Medicine Author Type: Physician Type: ED Triage Notes Filed: 07/20/2024 12:29 Note Text: ED INTAKE NOTE Patient Name: Lalitha Garcia Service Date: 07/20/24 BRIEF HPI: This is a 28 year old female who presents to the ED with: Ringing in her ears started two hours ago Used to be on BP meds but has been taken off of it since her last in 2021 Wanted to get BP check No chest pain + SOB BRIEF EXAM: NAD Awake and Alert Non labored breathing INITIAL WORKUP AND DECISION MAKING: Orders Placed This Encounter XR CHEST 2V FRONTAL/LAT COMPREHENSIVE METABOLIC PANEL (BMP+LFT) CBC + AUTO DIFF SINGLE HIGH SENSITIVITY TROPONIN T ECG COMPLETE Provider examination performed via virtual platform with assistance from bedside clinician. SIGNATURE: Earlene Claudio DO [facility] Insulin SerPl-aCncon 025 Insulin Qn 16.2 uU/mL Normal 2.6-24.9 [facility] Comment on above: Order Comment: Speci men Type: BLOOD SPECIMENOrdering Facility: [facility] Address: [address] [place] [address] Result Comment: Refe rence intervals established for fasting specimens. Performed By: #### 2 0448-7 ####[facility] LABCLIA [id number] [address] [address] [facility] [place] Lipid 1995 panelon 5 Cholesterol [Mass/Vol] 181 mg/dL Normal <200 [facility] Comment on above: Order Comment: Isai men Type: BLOOD SPECIMENOrdering Facility: [facility] Address: [address] [place] [address] Result Comment: <200 mg/dL, Desirable 200-239 mg/dL, Borderline high >239 mg/dL, High Performed By: #### 2 4331-1 ####[facility] LABCLIA [id number] [address] [id number] [address] Cholesterol in HDL [Mass/Vol] 36 mg/dL Low >39 [facility] Comment on above: Order Comment: Paulino men Type: BLOOD SPECIMENOrdering Facility: [facility] Address: [address] [place] [address] Result Comment: 40-5 9 mg/dL, Acceptable >59 mg/dL, High: Negative risk factor for coronary heart disease <40 mg/dL, Low: Positive risk factor for coronary heart disease Performed By: #### 2 4331-1 ####[facility] LABCLIA [id number] [address] [id number] [address] [place] Cholesterol in LDL [Mass/Vol] 122 mg/dL High <100 [facility] Comment on above: Order Comment: Speci men Type: BLOOD SPECIMENOrdering Facility: [facility] Address: [address] [place] [address] Result Comment: <100 mg/dL, Optimal 100-129 mg/dL, Near optimal/above optimal 130-159 mg/dL, Borderline high 160-189 mg/dL, High >189 mg/dL, Very high Secondary prevention optimal LDL Cholesterol levels are recommended to be < 70 mg/dL Performed By: #### 2 4331-1 ####[facility] LABCLIA [id number] [place] [id number] [facility] [id number] [place] [address] [place] Cholesterol in LDL/Cholesterol in HDL [Mass ratio] 3.39 {ratio} High <2.54 [facility] Comment on above: Order Comment: Speci men Type: BLOOD SPECIMENOrdering Facility: [facility] Address: [address] [place] [address] Result Comment: Bo lopez: 1. National Cholesterol Education Program ATP III Guideline At-A-Glance Quick Desk Reference: National Heart, Lung, and Blood [place]. National Institutes of Health. 2001: NIH Publication No. 01-3305. 2. An International Atherosclerosis Society position paper: global recommendations for the management of dyslipidemia: executive summary, Atherosclerosis. 2014: 232(2):410-413. Performed By: #### 2 4331-1 ####[facility] LABIA [id number] [address] [id number] [place] [address] [place] Cholesterol in VLDL [Mass/Vol] 23 mg/dL Normal <30 [facility] Comment on above: Order Comment: Speci men Type: BLOOD SPECIMENOrdering Facility: [facility] Address: [address] [place] [address] Performed By: #### 2 4331-1 ####[facility] LABIA [id number] [address] [id number] [place] [address] [place] Cholesterol non HDL [Mass/Vol] 145 mg/dL High <130 [facility] Comment on above: Order Comment: Speci men Type: BLOOD SPECIMENOrdering Facility: [facility] Address: [address] [place] [address] Result Comment: <130 mg/dL, Optimal 130-159 mg/dL, Near optimal/above optimal 160-189 mg/dL, Borderline high 190-219 mg/dL, High >219 mg/dL, Very high Secondary prevention optimal non HDL Cholesterol levels are recommended to be <100 mg/dL Performed By: #### 2 4331-1 ####[facility] LABCLIA [id number] [address] [id number] [place] [address] [place] Cholesterol.total/ Cholesterol in HDL [Mass ratio] 5.03 {ratio} Normal <5.10 [facility] Comment on above: Order Comment: Speci men Type: BLOOD SPECIMENOrdering Facility: [facility] Address: [address] [place] [address] Performed By: #### 2 4331-1 ####[facility] LABCLIA [id number] [address] [id number] [address] [place] FASTING TIME 12 hrs Normal [facility] Comment on above: Order Comment: Speci men Type: BLOOD SPECIMENOrdering Facility: [facility] Address: [address] [place] [address] Performed By: #### 2 4331-1 ####[facility] LABCLIA [id number] [address] [id number] [place] [address] [place] Triglyceride [Mass/Vol] 113 mg/dL Normal <150 [facility] Comment on above: Order Comment: Speci men Type: BLOOD SPECIMENOrdering Facility: [facility] Address: [address] [place] [address] Result Comment: <150 mg/dL, Normal 150-199 mg/dL, Borderline high 200-499 mg/dL, High >499 mg/dL, Very high Performed By: #### 2 4331-1 ####[facility] LABCLIA [id number] [facility] [id number] [place] [address] OF [facility] [id number] [place] [address] [place] TESTOSTERONE, FREE AND TOTAL , BY EQUILIBRIUM ULTRAFILTRATION MASS SPECTROMETRYon 07-15-2024 Testosterone [Mass/Vol] 93.7 ng/dL High 10.0-55.0 [facility] Comment on above: Order Comment: Speci men Type: BLOOD SPECIMENOrdering Facility: [facility] Address: [address] [place] [address] Performed By: #### T FTEST ####[facility] LABCLIA [id number] [place] [address] Testosterone Free [Mass/Vol] 2.14 ng/dL High 0.10-0.85 [facility] Comment on above: Order Comment: Speci men Type: BLOOD SPECIMENOrdering Facility: [facility] Address: [address] [place] [address] Performed By: #### T FTEST ####[facility] LABCLIA [id number] [place] [address] Testosterone Free/Testosterone. total [Mass fraction] 2.28 % Normal 0.50-2.80 [facility] Comment on above: Order Comment: Speci men Type: BLOOD SPECIMENOrdering Facility: [facility] Address: [address] [place] [address] Performed By: #### T FTEST ####[facility] LABCLIA [id number] [place] [address] [place] Pelvison 07-15-2024 Indication right ovarian cyst Impression The uterus is anteverted and measures 104 mm x 47 mm x 69 mm. The endometrial thickness is 3.9 mm. The right ovary measures 45 mm x 22 mm x 30 mm and contains a 36 mm x 21 mm x 17 mm unilocular simple cyst. O-RADS 2 There is a right simple paraovarian/paratubal cyst that measures 21 mm x 20 mm x 20 mm. There is a right simple paraovarian/paratubal cyst that measures 9 mm x 9 mm x 8 mm. The left ovary measures 29 mm x 23 mm x 18 mm. There is a left 9 mm x 10 mm x 10 mm simple paraovarian/paratubal cyst. There is no free fluid visualized. Recommendations O-RADS 2 ovarian simple cyst, almost certainly benign. No follow up imaging is needed. Simple paraovarian/paratubal cyst, no follow up imaging is needed. Menstrual History LMP on 07/06/2024. Contraception: none Method Transabdominal, transvaginal, 3D ultrasound examination, Color Doppler examination. View: Adequate visualization Uterus Uterus: Visualized Uterus position: anteverted Description of uterine malformations: none Myometrium: normal Endometrium: normal Cervix details: cystic lesions identified suggesting superficial Nabothian cysts Uterus length 104 mm Uterus width 69 mm Uterus height 47 mm Uterus Vol 173.7 cm Endometrial thickness, total 3.9 mm Fibroids: No fibroids identified Polyps: No polyps identified Right Ovary Rt ovary: Visualized Rt ovary D1 45 mm Rt ovary D2 22 mm Rt ovary D3 30 mm Rt ovary Vol 15.5 cm Rt ovarian cyst(s): Cysts identified Rt ovarian cyst D1 36 mm Rt ovarian cyst D2 21 mm Rt ovarian cyst D3 17 mm Rt ovarian cyst mean 24.7 mm Rt ovarian cyst vol 6.729 cm Rt ovarian cyst findings: Unilocular simple cyst Rt ovarian cyst D1 21 mm Rt ovarian cyst D2 20 mm Rt ovarian cyst D3 20 mm Rt ovarian cyst mean 20.3 mm Rt ovarian cyst vol 4.398 cm Rt ovarian cyst findings: Simple paraovarian/paratubal cyst Rt ovarian cyst D1 9 mm Rt ovarian cyst D2 9 mm Rt ovarian cyst D3 8 mm Rt ovarian cyst mean 8.7 mm Rt ovarian cyst vol 0.339 cm Rt ovarian cyst findings: Simple paraovarian/paratubal cyst Left Ovary Lt ovary: Visualized Lt ovary morphology: premenopausal normal follicular Lt ovary D1 29 mm Lt ovary D2 23 mm Lt ovary D3 18 mm Lt ovary Vol 6.2 cm Lt ovarian cyst D1 9 mm Lt ovarian cyst D2 10 mm Lt ovarian cyst D3 10 mm Lt ovarian cyst mean 9.7 mm Lt ovarian cyst vol 0.471 cm Lt ovarian cyst findings: Simple paraovarian/paratubal cyst Cul de Sac Visualized. no free fluid visualized Performed By: Riana Ortega RDMS Read By: Sarina Mandujano M.D. MATERNAL MEDICINE [facility] Radiology Study observation (narrative) [facility] CNOVon 07-09-2024 CNOV Office Visit (OBGYWM ) LALITHA GARCIA ([id number]) 1995 F Date Time Provider Department 07/09/24 2:00 PM JOSEY RUSH OBGYWM During your visit today, we recorded the following information about you: Blood pressure Weight Height Last Period 128/78 169.2 kg 1.727 m 07/09/24 Josey Rush APRN.CNM 07/13/2024 12:02 PM Signed Lalitha Garcia is a 28 year old female who presents for problem visit for follow up cyst HPI: Presents today for follow up ultrasound. Was seen for ovarian cyst and recommended follow up. Was having irregular bleeding for 5 weeks every day. Was started on norethindrone and bleeding stopped. LMP 07/09/24 Menses 30-42 days apart. Prior to the irregular bleeding cycles were normal every 28-30 days. Seen weight management in 05/16 and has follow up 09/14. Taking Metformin and states it has not helped. Denies any pain otherwise. Not taking anything for control. Was seen at [facility] but do not have records for US or labs. 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 No pertinent past medical history. PAST SURGICAL HISTORY Procedure Laterality Date TONSILLECTOMY AND ADENOIDECTOMY No family history on file. Social History Tobacco Use Smoking status: Every Day Types: Cigarettes Smokeless tobacco: Never Vaping Use Vaping status: Never Used Substance Use Topics Alcohol use: Not Currently Drug use: Yes Types: Marijuana Current Outpatient Medications Medication Sig metFORMIN (GLUCOPHAGE) 500 mg tablet Take 1 tablet by mouth two times a day with meals. Start taking one tablet after breakfast for 1-2 weeks. If tolerated, may increase dose to one tablet after breakfast and one tablet after dinner. No current facility-administered medications for this visit. Allergies As of Date: 07/09/2024 Allergen Noted Reaction LATEX 07/09/2024 Itching Fully Assessed 07/09/2024 REVIEW OF SYSTEMS Abdomen: No bloating, early satiety, indigestion, or increased flatulence. No abdominal pain, nausea, vomiting, diarrhea, or constipation. Bladder: No dysuria, gross hematuria, urinary frequency, urinary urgency, or incontinence. Breast: No breast lumps, nipple d/c, overlying skin changes, redness or skin retraction. Expanded ROS: N/A Allergies and current medication updated:Yes SENSITIVE EXAM: Sensitive exam not performed. EXAM: BP 128/78 Ht 5' 8 (1.73m) Wt 373 lb (169.2kg) LMP 07/09/2024 BMI 56.73 kg/(m2). GENERAL: pleasant, female in no apparent distress HEENT: Normocephalic and atraumatic NECK: Supple and full range of motion DERMATOLOGY: Normal and without lesions CHEST: Normal inspiratory effort NEURO: alert and oriented x3,exam grossly non-focal EXTREMITIES: normal ASSESSMENT AND PLAN: Assessment AND Plan Ovarian cyst, right Orders: PELVIC US [facility]; Future -Request records from [facility] Abnormal uterine bleeding (AUB) Orders: TESTOSTERONE, FREE AND TOTAL, BY EQUILIBRIUM ULTRAFILTRATION MASS SPECTROMETRY; Future LIPID PANEL BASIC; Future INSULIN, TOTAL, SERUM; Future Josey Rush APRN.CNM Allergies As of Date: 07/09/2024 Noted Allergy Reaction LATEX 07/09/2024 9 - Itching Date Reviewed: 07/09/2024 Reviewed by: Kayden Alvarez MA - Fully Assessed Reason for Visit: Ovarian cysts [Other] Primary Visit Diagnosis:Ovarian cyst, right [N83.201] Other Visit Diagnosis:Abnormal uterine bleeding (AUB) [N93.9] Order(s):PELVIC US [facility] [4640300] Order #: [id number]: 1 FUTURE TESTOSTERONE, FREE AND TOTAL, BY EQUILIBRIUM ULTRAFILTRATION MASS SPECTROMETRY [SQTFTEST] Order #: [id number] FUTURE LIPID PANEL BASIC [SQLIPB] Order #: [id number] FUTURE INSULIN, TOTAL, SERUM [SQINSULN] Order #: [id number] FUTURE Prescriptions as of 07/13/2024 - metFORMIN (GLUCOPHAGE) 500 mg tablet Take 1 tablet by mouth two times a day with meals. Start taking one tablet after breakfast for 1-2 weeks. If tolerated, may increase dose to one tablet after breakfast and one tablet after dinner. Problem List As Of Date 07/09/2024 Noted Resolved Uncomplicated asthma [J45.909] 05/14/2024 Attention deficit hyperactivity disorder (ADHD)*05/14/2024 Episodic mood disorder (HCC) [F39] 06/06/2014 Foster care (status) [Z62.21] 08/25/2013 Disposition: Return for pelvic US for ovarian cyst. 8-12wk from last US on 05/16 . Follow-up and Disposition History for Encounter Date Provider Department [id number] Status:Closed by JOSEY RUSH on 07/13/24 Normal [facility] HSV 1 AND 2 IgGon 04-30-2024 HSV 1 IgG Normal [facility] Comment on above: Result Comment: RESU LT: REACTIVE Please note reference interval change HSV-1 IgG testing performed using the [employer] HSV-1 IgG assay. Performed By: #### M 8200.2203 #### [facility] [place] [address], [address] HSV 2 IgG Normal [facility] Comment on above: Result Comment: RESU LT: NON-REACTIVE Please note reference interval change Current guidelines and recommendations do not recommend routine screening for HSV-2 in asymptomatic individuals, including those that are . The detection of HSV-2 IgG antibodies in a single sample indicates previous exposure to HSV-2 but does not give information as to the site of HSV infection or the timing of exposure. The predictive value of positive and negative results depends on the population's prevalence and the pretest likelihood of HSV-2. HSV-2 IgG testing performed using the [employer] Elecsys HSV-2 IgG assay. Performed at: [address] [id number] [employer] Or Work: Moses Reyes PhD, Phone: [phone] Performed By: #### M 9602.7222 #### [facility] [address] [place], [address] CBC W/Diff, Automatedon 11-0 -2023 Absolute Lymph 2.59 X10 3/uL Normal 0.83-4.51 [facility] Comment on above: Performed By: #### M 100.678 #### [facility] [address] [place], [address] Absolute Neut 4.0 X10 3/uL Normal 2.0-7.7 [facility] Comment on above: Performed By: #### M 100.678 #### [facility] [address] [place], [address] Basophils/100 WBC (Bld) 0.5 % Normal 0-1 [facility] Comment on above: Performed By: #### M 100.678 #### [facility] [address] [place], [address] Eosinophils/100 WBC (Bld) 1.7 % Normal 0-5 [facility] Comment on above: Performed By: #### M 100.678 #### [facility] [address] [place], [address] Erythrocyte distribution width (RBC) [Ratio] 12.6 % Normal 11.6-14.6 [facility] Comment on above: Performed By: #### M 100.678 #### [facility] [address] [place], [address] Hematocrit (Bld) [Volume fraction] 42.6 % Normal 37-47 [facility] Comment on above: Performed By: #### M 100.678 #### [facility] [address] [place], [address] Hemoglobin (Bld) [Mass/Vol] 13.6 g/dL Normal 12.0-15.0 [facility] Comment on above: Performed By: #### M 100.678 #### [facility] [address] [place], [address] IG% 0.400 Normal 0.0-0.9 [facility] Comment on above: Result Comment: IG% - Immature Granulocytes (promyelocytes, myelocytes and metamyelocytes) > 1% indicates that a LEFT SHIFT is Present. Performed By: #### M 100.678 #### [facility] [address] [place], [address] Lymphocytes/100 WBC (Bld) 34.4 % Normal 19-41 [facility] Comment on above: Performed By: #### M 100.678 #### [facility] [address] [place], [address] MCH (RBC) [Entitic mass] 28.5 pg Normal 27.0-32.0 [facility] Comment on above: Performed By: #### M 100.678 #### [facility] [address] [place], [address] MCHC (RBC) [Mass/Vol] 31.9 g/dL Low 32-36 [facility] Comment on above: Performed By: #### M 100.678 #### [facility] [address] [place], [address] MCV (RBC) [Entitic vol] 89.3 fL Normal 81-99 [facility] Comment on above: Performed By: #### M 100.678 #### [facility] [address] [place], [address] Monocytes/100 WBC (Bld) 9.4 % Normal 0-10 [facility] Comment on above: Performed By: #### M 100.678 #### [facility] [address] [place], [address] Neutrophils/100 WBC (Bld) 53.6 % Normal 47-70 [facility] Comment on above: Performed By: #### M 100.678 #### [facility] [address] [place], [address] Nucleated RBC (Bld) [#/Vol] 0 10*3/uL Normal 0-5 [facility] Comment on above: Performed By: #### M 100.678 #### [facility] [address] [place], [address] Platelet mean volume (Bld) [Entitic vol] 9.9 fL Normal 6.2-12.0 [facility] Comment on above: Performed By: #### M 100.678 #### [facility] [facility] [address] [place], [address] Platelets (Bld) [#/Vol] 323 10*3/uL Normal 150-450 [facility] Comment on above: Performed By: #### M 100.678 #### [facility] [address] [place], [address] RBC (Bld) [#/Vol] 4.77 10*6/uL Normal 4.2-5.4 [facility] Comment on above: Performed By: #### M 100.678 #### [facility] [address] [place], [address] RDW SD 41.3 fl Normal 35.1-43.9 [facility] Comment on above: Performed By: #### M 100.678 #### [facility] [address] [place], [address] WBC (Bld) [#/Vol] 7.5 10*3/uL Normal 4.4-11.0 [facility] Comment on above: Performed By: #### M 100.678 #### [facility] [address] [place], [address] Comprehensive Metabolic Prof ilon 04-23-2024 Albumin [Mass/Vol] 3.6 g/dL Normal 3.2-5.0 [facility] Comment on above: Performed By: #### M 100.678 #### [facility] [address] [place], [address] Albumin/Globulin [Mass ratio] 1.1 {ratio} Normal 0.9-2.4 [facility] Comment on above: Performed By: #### M 100.678 #### [facility] [address] [place], [address] ALK P 70 U/L Normal 45-117 [facility] Comment on above: Performed By: #### M 100.678 #### [facility] [address] [place], [address] ALT [Catalytic activity/Vol] 28 U/L Normal 13-56 [facility] Comment on above: Performed By: #### M 100.678 #### [facility] [address] [place], [address] AST [Catalytic activity/Vol] 15 U/L Normal 15-37 [facility] Comment on above: Performed By: #### M 100.678 #### [facility] [address] [place], [address] Bilirubin [Mass/Vol] 0.20 mg/dL Normal 0.20-1.00 [facility] Comment on above: Result Comment: For patients on eltrombopag therapy, use of Dimension Dexter TBIL is not recommended. Performed By: #### M 100.678 #### [facility] [address] [place], [address] BUN/CRE 8.2 RATIO Low 10-20 [facility] Comment on above: Performed By: #### M 100.678 #### [facility] [address] [place], [address] CA,Total 8.9 mg/dL Normal 8.5-10.1 [facility] Comment on above: Performed By: #### M 100.678 #### [facility] [address] [place], [address] Chloride [Moles/Vol] 107 mmol/L Normal 98-107 [facility] Comment on above: Performed By: #### M 100.678 #### [facility] [address] [place], [address] CO2 [Moles/Vol] 24.0 mmol/L Normal 21.0-32.0 [facility] Comment on above: Performed By: #### M 100.678 #### [facility] [address] [place], [address] Creatinine [Mass/Vol] 0.61 mg/dL Normal 0.55-1.02 [facility] Comment on above: Result Comment: The validity of the calculated GFR GFRAA in patients over 70 years has not been determined. Clinical correlation is essential. Performed By: #### M 100.678 #### [facility] [address] [place], [address] EST GFR - AA 151 mL/min Normal >60 [facility] Comment on above: Result Comment: Afri can Romanian GFR Calc Performed By: #### M 100.678 #### [facility] [address] [place], [address] GAP 4 Low 5-15 [facility] Comment on above: Performed By: #### M 100.678 #### [facility] [address] [place], [address] GFR/1.73 sq M.predicted among non-blacks MDRD (S/P/Bld) [Vol rate/Area] 125 mL/min/{1.73_m2} Normal >60 [facility] Comment on above: Result Comment: Non- GFR Calc Performed By: #### M 100.678 #### [facility] [address] [place], [address] Globulin (S) [Mass/Vol] 3.2 g/dL Normal 2.2-4.2 [facility] Comment on above: Performed By: #### M 100.678 #### [facility] [address] [place], [address] Glucose [Mass/Vol] 96 mg/dL Normal 74-106 [facility] Comment on above: Performed By: #### M 100.678 #### [facility] [address] [place], [address] Potassium [Moles/Vol] 3.8 mmol/L Normal 3.5-5.1 [facility] Comment on above: Performed By: #### M 100.678 #### [facility] [address] [place], [address] Sodium [Moles/Vol] 135 mmol/L Low 136-145 [facility] Comment on above: Performed By: #### M 100.678 #### [facility] [address] [place], [address] T PROT 6.8 g/dL Normal 6.4-8.2 [facility] Comment on above: Performed By: #### M 100.678 #### [facility] [address] [place], [address] Urea nitrogen [Mass/Vol] 5 mg/dL Low 7-18 [facility] Comment on above: Performed By: #### M 100.678 #### [facility] [address] [place], [address] HIV - WCHon 04-23-2024 HIV Non-Reactive Normal Nonreactive [facility] Comment on above: Order Comment: Reaso n for Exam: vaginal discharge Performed By: #### M 100.678 #### [facility] [address] [place], [address] Hepatitis B Surface Antigeno n 04-23-2024 HEP B Surf Ag Non-Reactive Normal Nonreactive [facility] Comment on above: Order Comment: Reaso n for Exam: vaginal discharge Performed By: #### M 8200.2203 #### [facility] [address] [place], [address] Hepatitis C Antibodyon 04-23 Hepatitis C AB Non-Reactive Normal Nonreactive [facility] Comment on above: Order Comment: Reaso n for Exam: vaginal discharge Result Comment: Non Reactive: < 0.8 Equivocal: >/= 0.8 to < 1.0 Reactive: >/= 1.0 The CDC requires that a reactive/equivocal HCV antibody result be sent out for confirmation. HCV Quant by PCR testing. Performed By: #### M 8200.2203 #### [facility] [address] [place], [address] L509.8000on 04-23-2024 Syphilis Abs Non-Reactive Normal [facility] Comment on above: Order Comment: Reaso n for Exam: vaginal discharge Performed By: #### M 100.678 #### [facility] [address] [place], [address] Pelvic w/ Transvaginalon Pelvic w/ Transvaginal [facility] [address] [place] [address] Pelvic w/ Transvaginal MR#: [id number] Acct: [id number] Name: LALITHA GARCIA Rep #: [id number] : 1995 F 28 From: Blue alonso MD PCP: Care Physician,No Primary Status: REG CLI Study: Pelvic w/ Transvaginal Date of Exam: 04/23/24 Exam# [id number] Ordering Dr: Alesha Aguilar :[id number] STUDY: ULTRASOUND OF THE FEMALE PELVIS - COMPLETE REASON FOR EXAM: Female, 28 years old. Ovarian cyst LMP: March 27, 2024. TECHNIQUE: Transabdominal and Transvaginal TECHNICAL QUALITY: Adequate. COMPARISON: Comparison is made with prior study February 26, 2024. FINDINGS: The uterus is anteverted and is in a midline position. The uterus measures 11.1 cm x 6.7 cm x 5.6 cm. There is a Nabothian cyst of the cervix. The endometrium measures 8 mm in thickness, and is heterogeneous (striated). There is no demonstrated endometrial mass. There is no demonstrated myometrial mass. I.U.D. - The patient does not have an I.U.D. The right ovary is visualized. The right ovary measures 3.9 cm x 2.9 cm x 2.5 cm. There is no right ovarian cyst or ovarian mass. There is a 2.1 cm x 1.6 cm x 1.5 cm paraovarian cyst in the right adnexa. This has increased slightly in size as compared to prior study. There is normal arterial and normal venous vascularity. The left ovary is visualized. The left ovary measures 5.3 cm x 6 cm x 5.2 cm. There is a 5.1 cm x 3 cm x 3.5 cm complex cystic nodule in the left ovary. Sonographic follow-up is recommended. This may represent an hemorrhagic cyst. There is no visualized left adnexal mass or complex lesion. There is normal arterial and normal venous vascularity. There is no fluid in the cul-de-sac. The pre void volume of the bladder was 234 ml. US/Pelvic w/ Transvaginal IMPRESSION: Slight increase in size of the previously seen right paraovarian cyst. New complex cyst in the left ovary measuring 5.1 cm x 3 cm x 3.5 cm. This most likely represents a hemorrhagic cyst. Sonographic follow-up recommended. Electronically Signed: Blue Tse MD at 8:58 EST Reading Location ID and State: [facility] / [place] , Service support , CC: JERMAN Aguilar; No Primary Care Physician [facility] Lead Generation: Signed Normal [facility] T4 Free Directon 04-23-2024 T4 FREE DIRECT 1.02 ng/dL Normal 0.76-1.46 [facility] Comment on above: Performed By: #### M 100.678 #### [facility] [address] [place], [place], [address] Thyroid Stim Hormone (TSH)on 04-23-2024 TSH 0.915 uIU/mL Normal 0.358-3.740 [facility] Comment on above: Performed By: #### M 100.678 #### [facility] [address] [place], [place], [address] 12 Lead EKGon 03-10-2024 12 Lead EKG [facility] Services [address] [place] [address] 12 Lead EKG 03/10/241952 MR#: [id number] Acct: [id number] Name: LALITHA GARCIA Rep #: [id number] : 1995 28 From: Robinson Hernandez MD Attending Dr: Status: DEP ER Ordering Dr: Brennan Heart DO Date: 03/10/24 Location: ED Sex: F AA Admitted: Test Reason : CHEST TIGHTNESS Blood Pressure : / mmHG Vent. Rate : 114 BPM Atrial Rate : 114 BPM P-R Int : 160 ms QRS Dur : 086 ms QT Int : 320 ms P-R-T Axes : 059 060 038 degrees QTc Int : 441 ms Sinus tachycardia Otherwise normal ECG Confirmed by Robinson Hernandez ([id number]), electronic news gathering editor JENARO JONES ([id number]) on 03/15/2024 10:43:24 AM Referred By: ZAN Confirmed By:Robinson Hernandez 03/15/24 1043 Date Robinson Hernandez MD CC: Dr. Brennan Heart, DO; No Primary Care Physician Signed Normal [facility] Basic Metabolic Profile (BMP )on 03-10-2024 BUN/CRE 11.5 RATIO Normal 10-20 [facility] Comment on above: Performed By: #### L 100.0100, L300.8000, L500.3400, L500.2500 #### [facility] [address] [place], [address] CA,Total 8.7 mg/dL Normal 8.5-10.1 [facility] Comment on above: Performed By: #### L 100.0100, L300.8000, L500.3400, L500.2500 #### [facility] [address] [place], [address] Chloride [Moles/Vol] 109 mmol/L High 98-107 [facility] Comment on above: Performed By: #### L 100.0100, L300.8000, L500.3400, L500.2500 #### [facility] [address] [place], [address] CO2 [Moles/Vol] 24.0 mmol/L Normal 21.0-32.0 [facility] Comment on above: Performed By: #### L 100.0100, L300.8000, L500.3400, L500.2500 #### [facility] [address] [place], [address] Creatinine [Mass/Vol] 0.78 mg/dL Normal 0.55-1.02 [facility] Comment on above: Result Comment: The validity of the calculated GFR GFRAA in patients over 70 years has not been determined. Clinical correlation is essential. Performed By: #### L 100.0100, L300.8000, L500.3400, L500.2500 #### [facility] [address] [place], [address] ECRCL 177.29 ml/min Normal [facility] Comment on above: Performed By: #### L 100.0100, L300.8000, L500.3400, L500.2500 #### [facility] [address] [place], [address] EST GFR - AA 113 mL/min Normal >60 [facility] Comment on above: Result Comment: Afri can Romanian GFR Calc Performed By: #### L 100.0100, L300.8000, L500.3400, L500.2500 #### [facility] [address] [place], [address] GAP 7 Normal 5-15 [facility] Comment on above: Performed By: #### L 100.0100, L300.8000, L500.3400, L500.2500 #### [facility] [address] [place], [address] GFR/1.73 sq M.predicted among non-blacks MDRD (S/P/Bld) [Vol rate/Area] 94 mL/min/{1.73_m2} Normal >60 [facility] Comment on above: Result Comment: Non- GFR Calc Performed By: #### L 100.0100, L300.8000, L500.3400, L500.2500 #### [facility] [address] [place], [address] Glucose [Mass/Vol] 86 mg/dL Normal 74-106 [facility] Comment on above: Performed By: #### L 100.0100, L300.8000, L500.3400, L500.2500 #### [facility] [address] [place], [address] Potassium [Moles/Vol] 3.8 mmol/L Normal 3.5-5.1 [facility] Comment on above: Performed By: #### L 100.0100, L300.8000, L500.3400, L500.2500 #### [facility] [address] [place], [address] Sodium [Moles/Vol] 140 mmol/L Normal 136-145 [facility] Comment on above: Performed By: #### L 100.0100, L300.8000, L500.3400, L500.2500 #### [facility] [address] [place], [address] Urea nitrogen [Mass/Vol] 9 mg/dL Normal 7-18 [facility] Comment on above: Performed By: #### L 100.0100, L300.8000, L500.3400, L500.2500 #### [facility] [address] [place], [address] CBC W/Diff, Automatedon 02-21 Absolute Lymph 2.44 X10 3/uL Normal 0.83-4.51 [facility] Comment on above: Performed By: #### L 100.0100, L300.8000, L500.3400, L500.2500 #### [facility] [address] [place], [address] Absolute Neut 3.3 X10 3/uL Normal 2.0-7.7 [facility] Comment on above: Performed By: #### L 100.0100, L300.8000, L500.3400, L500.2500 #### [facility] [address] [place], [address] Basophils/100 WBC (Bld) 0.7 % Normal 0-1 [facility] Comment on above: Performed By: #### L 100.0100, L300.8000, L500.3400, L500.2500 #### [facility] [address] [place], [address] Eosinophils/100 WBC (Bld) 2.7 % Normal 0-5 [facility] Comment on above: Performed By: #### L 100.0100, L300.8000, L500.3400, L500.2500 #### [facility] [address] [place], [address] Erythrocyte distribution width (RBC) [Ratio] 13.5 % Normal 11.6-14.6 [facility] Comment on above: Performed By: #### L 100.0100, L300.8000, L500.3400, L500.2500 #### [facility] [address] [place], [address] Hematocrit (Bld) [Volume fraction] 40.3 % Normal 37-47 [facility] Comment on above: Performed By: #### L 100.0100, L300.8000, L500.3400, L500.2500 #### [facility] [address] [place], [address] Hemoglobin (Bld) [Mass/Vol] 13.0 g/dL Normal 12.0-15.0 [facility] Comment on above: Performed By: #### L 100.0100, L300.8000, L500.3400, L500.2500 #### [facility] [address] [place], [address] IG% 0.400 Normal 0.0-0.9 [facility] Comment on above: Result Comment: IG% - Immature Granulocytes (promyelocytes, myelocytes and metamyelocytes) > 1% indicates that a LEFT SHIFT is Present. Performed By: #### L 100.0100, L300.8000, L500.3400, L500.2500 #### [facility] [address] [place], [address] Lymphocytes/100 WBC (Bld) 36.3 % Normal 19-41 [facility] Comment on above: Performed By: #### L 100.0100, L300.8000, L500.3400, L500.2500 #### [facility] [address] [place], [address] MCH (RBC) [Entitic mass] 28.9 pg Normal 27.0-32.0 [facility] Comment on above: Performed By: #### L 100.0100, L300.8000, L500.3400, L500.2500 #### [facility] [address] [place], [address] MCHC (RBC) [Mass/Vol] 32.3 g/dL Normal 32-36 [facility] Comment on above: Performed By: #### L 100.0100, L300.8000, L500.3400, L500.2500 #### [facility] [address] [place], [address] MCV (RBC) [Entitic vol] 89.6 fL Normal 81-99 [facility] Comment on above: Performed By: #### L 100.0100, L300.8000, L500.3400, L500.2500 #### [facility] [address] [place], [address] Monocytes/100 WBC (Bld) 11.0 % High 0-10 [facility] Comment on above: Performed By: #### L 100.0100, L300.8000, L500.3400, L500.2500 #### [facility] [address] [place], [address] Neutrophils/100 WBC (Bld) 48.9 % Normal 47-70 [facility] Comment on above: Performed By: #### L 100.0100, L300.8000, L500.3400, L500.2500 #### [facility] [address] [place], [address] Nucleated RBC (Bld) [#/Vol] 0 10*3/uL Normal 0-5 [facility] Comment on above: Performed By: #### L 100.0100, L300.8000, L500.3400, L500.2500 #### [facility] [address] [place], [address] Platelet mean volume (Bld) [Entitic vol] 9.2 fL Normal 6.2-12.0 [facility] Comment on above: Performed By: #### L 100.0100, L300.8000, L500.3400, L500.2500 #### [facility] [address] [place], [address] Platelets (Bld) [#/Vol] 329 10*3/uL Normal 150-450 [facility] Comment on above: Performed By: #### L 100.0100, L300.8000, L500.3400, L500.2500 #### [facility] [address] [place], [address] RBC (Bld) [#/Vol] 4.50 10*6/uL Normal 4.2-5.4 [facility] Comment on above: Performed By: #### L 100.0100, L300.8000, L500.3400, L500.2500 #### [facility] [address] [place], [address] RDW SD 43.8 fl Normal 35.1-43.9 [facility] Comment on above: Performed By: #### L 100.0100, L300.8000, L500.3400, L500.2500 #### [facility] [address] [place], [address] WBC (Bld) [#/Vol] 6.7 10*3/uL Normal 4.4-11.0 [facility] Comment on above: Performed By: #### L 100.0100, L300.8000, L500.3400, L500.2500 #### [facility] [address] [place], [address] CTA Chest W/WO Contraston CTA Chest W/WO Contrast [facility] Imaging Services [address] [place] [address] CTA Chest W/WO Contrast MR#: [id number] Acct: [id number] Name: LALITHA GARCIA Rep #: [id number] : 1995 F 28 From: Venkata estrella MD PCP: Care Physician,No Primary Status: REG ER Study: CTA Chest W/WO Contrast Date of Exam: 03/10/24 Exam# [id number] Ordering Dr: Brennan Heart DO :[id number] STUDY: CTA CHEST REASON FOR EXAM: Female, 28 years old. pulmonary embolism elevated d dimer RADIATION DOSAGE (If Supplied By Facility): CTDIvol = ( 24.82 ) mGy, DLP = ( 783.16 ) mGycm TECHNIQUE: The examination was performed with the intravenous administration of IV 100mL Isovue-370. Post-processing of the angiographic images was performed, with multiplanar reformation and 3D reconstruction. Individualized dose optimization techniques were used for this CT. COMPARISON: No relevant prior comparison study available FINDINGS: PULMONARY ARTERIES: Normal enhancement of the main pulmonary artery and right and left pulmonary arteries. Normal enhancement of the bilateral peripheral pulmonary arteries. There is no demonstrated pulmonary embolism. AORTA: Normal thoracic aorta and visualized great vessels. There is no demonstrated aortic dissection. MEDIASTINUM: Normal heart and pericardium. Normal mediastinum. Normal hilar regions. LUNGS/PLEURA: Normal visualized trachea and bronchi. The lungs are well expanded. Normal pulmonary parenchyma. Normal pleura. No pneumothorax. CHEST WALL: Normal chest wall structures. UPPER ABDOMEN: Normal visualized upper abdomen. OSSEOUS STRUCTURES: No acute or suspicious osseous abnormality. CT/CTA Chest W/WO Contrast IMPRESSION: No pulmonary embolism or other acute intrathoracic abnormality. Electronically Signed: Venkata Sousa MD at 22:51 EDT , CC: Dr. Brennan Heart DO; No Primary Care Physician [facility] [employer] Lead Generation: Signed Normal [facility] D-Dimer Quantitative (DVT/PE )on 03-10-2024 D-DIMER QUANT 0.60 FEU/ug/m Invalid Interpretation Code 0.27-0.49 [facility] Comment on above: Result Comment: D-Di finn ELEVATED (>0.49): Additional studies and clinical assessments are indicated to conclude diagnosis of: Deep Vein Thrombosis (DVT) or Pulmonary Embolism (PE) [facility]IT[facility] VAL[facility] 2208 Merlyn Turner. RESULTS READ BACK BY SAME. Performed By: #### L 100.0100, L300.8000, L500.3400, L500.2500 #### [facility] [address] [facility] [place], [address] Emergency Department Summary on 03-10-2024 Emergency Department Summary [facility] Medical Records Department [address] [facility] [place] [address] Emergency Department Summary 03/10/24 MR#: [id number] Acct: [id number] Name: LALITHA GARCIA Rep #: [id number] : 1995 28 From: Brennan Heart DO PCP: Care Physician,No Primary Status:DEP ER Location: ED HPI History of Present Illness Chief Complaint: Palpitations Informant: patient and EMS Narrative Narrative: 28-year-old female brought to the emergency room with near syncopal-like symptoms. Patient states that she was at home was in her normal state when she felt a sharp pain in her lateral left low back. States she wanted to go take a shower is very hot muggy in her environment. She states that she began to feel lightheaded like she might pass out and developed some nausea. She states her heart started racing. She notes that she was being treated for an ovarian cyst and vaginal bleeding. She started Aygestin on about 04 March and the bleeding has subsequently stopped. She states she had blood work done on the fifth of this month. She states that she has been very emotional having hot and cold flashes. She sees Alesha Aguilar for gynecology. She is feeling better and no longer has the pain in her flank. She is a non-smoker. Prior history of DVT or PE. Prehospital EKG demonstrates a sinus tach at a rate of 150. She notes she has developed some dyspepsia since the starting of Aygestin. [facility] Medical History Ovarian cyst Preeclampsia Home Medications ???Medication ???Instructions ???Recorded ???Last Taken ???Type norethindrone acetate 5 mg tablet 5 mg PO .COMPLEX #45 tabs 03/03/24 Unknown Rx Allergy/AdvReac Type Severity Reaction Status Date / Time latex AdvReac Rash Verified 03/10/24 19:37 Family History Aunt Breast cancer, Onset Age: 34 Grandfather Throat cancer Surgical History History of tonsillectomy Social History adopted: No number of children: 1 current occupational status: employed sexually active: Yes Smoking Status: Current every day smoker tobacco type: cigarettes and e-cigarettes alcohol intake: never substance use type: does not use and marijuana caffeine: Yes Type: carbonated beverages danna/baptism: AGNOSTIC seatbelt use: always do you feel safe at home: Yes ROS ROS ED Constitutional Constitutional ED: Reports subjective and sweats; Denies chills or weight loss Eyes Eyes: Denies change in vision or diplopia ENT ENT ED: Denies ear pain, rhinorrhea or sore throat Cardiovascular Cardiovascular: Reports chest pain, palpitations and racing heartbeat; Denies orthopnea Respiratory/Chest Respiratory/Chest: Reports dyspnea; Denies cough or orthopnea Gastrointestinal Gastrointestinal: Reports nausea; Denies abdominal pain, diarrhea or vomiting Genitourinary Genitourinary ED: Denies dysuria, hematuria or urinary frequency Musculoskeletal Musculoskeletal: Reports back pain; Denies arthralgias or myalgias Integumentary Denies abscess or rash Neurologic Neurologic: Denies headache(s) or weakness Psychiatric Psychiatric: Denies anxiety, depression, suicidal ideation or suicidal thoughts Endocrine Endocrinology: Denies polydipsia, polyphagia or polyuria Allergic/Immunologic Allergic/Immunologic ED: Denies mouth swelling, tongue swelling or urticaria EXAM Physical Exam Const Vital Signs: 03/10/24 19:39 03/10/24 21:00 03/10/24 22:00 Temperature 99.1 F Temperature Source Oral Pulse Rate 122 H 81 88 Respiratory Rate 20 H 18 16 Blood Pressure 156/98 H 126/77 H 121/70 H Blood Pressure Mean 117 93 87 Pulse Ox 96 97 99 Oxygen Delivery Method Room Air Room Air Room Air 03/10/24 23:00 Temperature Temperature Source Pulse Rate 91 Respiratory Rate 18 Blood Pressure 116/75 Blood Pressure Mean 88 Pulse Ox 96 Oxygen Delivery Method Room Air Positive well nourished and well developed General Appearance ED: well developed HEENT Reports normocephalic, head/scalp atraumatic and moist mucous membranes Eyes PERRL and EOMs intact bilaterally Neck no lymphadenopathy, supple and no JVD Resp normal respiratory effort and clear to auscultation bilaterally Cardio regular rate, regular rhythm and no murmurs Rate: tachycardic GI normal to inspection, nondistended, normoactive bowel sounds and non-tender Palpation: soft Back/Spine no CVA tenderness and normal ROM Extremity normal to inspection General Extremety ED: Negative for edema General Extremity: Negative for edema Neuro oriented x3 and CN's II-X (more content not included)... Normal [facility] Liver Profileon 03-10-2024 Albumin [Mass/Vol] 3.4 g/dL Normal 3.2-5.0 [facility] Comment on above: Performed By: #### L 100.0100, L300.8000, L500.3400, L500.2500 #### [facility] [address] [place], [address] ALK P 67 U/L Normal 45-117 [facility] Comment on above: Performed By: #### L 100.0100, L300.8000, L500.3400, L500.2500 #### [facility] [address] [place], [address] ALT [Catalytic activity/Vol] 45 U/L Normal 13-56 [facility] Comment on above: Performed By: #### L 100.0100, L300.8000, L500.3400, L500.2500 #### [facility] [address] [place], [address] AST [Catalytic activity/Vol] 35 U/L Normal 15-37 [facility] Comment on above: Performed By: #### L 100.0100, L300.8000, L500.3400, L500.2500 #### [facility] [address] [place], [address] Bilirubin [Mass/Vol] 0.20 mg/dL Normal 0.20-1.00 [facility] Comment on above: Result Comment: For patients on eltrombopag therapy, use of Dimension Dexter TBIL is not recommended. Performed By: #### L 100.0100, L300.8000, L500.3400, L500.2500 #### [facility] [address] [place], [address] Bilirubin.direct [Mass/Vol] 0.09 mg/dL Normal 0.00-0.30 [facility] Comment on above: Performed By: #### L 100.0100, L300.8000, L500.3400, L500.2500 #### [facility] [address] [place], [address] Globulin (S) [Mass/Vol] 3.2 g/dL Normal 2.2-4.2 [facility] Comment on above: Performed By: #### L 100.0100, L300.8000, L500.3400, L500.2500 #### [facility] [address] [place], [address] T PROT 6.6 g/dL Normal 6.4-8.2 [facility] Comment on above: Performed By: #### L 100.0100, L300.8000, L500.3400, L500.2500 #### [facility] [address] [place], [address] M100.678on 03-10-2024 M100.678 Pending SARS-CoV-2 (COVID 19) Negative INFLUENZA A Negative INFLUENZA B Negative RSV PCR Negative Normal [facility] Comment on above: Performed By: #### M 100.678 #### [facility] [address] [place], [address] M8200.2203on 03-03-2024 M8200.2203 Pending Chlamydia Trachomatis PCR NEGATIVE for Chlamydia trachomatis N. gonorrhoeae PCR Negative for N. gonorrhoeae Normal [facility] Comment on above: Performed By: #### M 8200.2203 #### [facility] [address] [place], [address] Deposition Reporter Office Visit Reporton 03-03-2024 Deposition Reporter Office Visit Report [facility] [address], [address] [place] [address] OFFICE VISIT Date of Service: 03/03/24 MR#: [id number] Acct: [id number] Name: LALITHA GARCIA Rep #: [id number] : 1995 Provider: JERMAN Aponte Age/Sex: 28/F Location: [facility] [place] Status: Signed Intake Vital Signs 02/26/24 19:32 03/03/24 10:24 Height 5 ft 8 in 5 ft 8 in Weight: 347 lb BMI 52.7 BP 145/85 H Intake Visit Reasons: ER F/U AUB CYST Chief Complaint: burst cyst, bleeding q 3 weeks Supervisor Required: No Is patient in pain?: No Allergies latex Adverse Reaction (Verified 03/03/24 10:29) Rash Medications ???Medication ???Instructions ???Recorded ???Confirmed ???Type norethindrone acetate 5 mg tablet 5 mg PO .COMPLEX #45 tabs 03/03/24 03/03/24 Rx Is last menstrual period known: Yes Last Menstrual Period: 01/23/24 Post menopausal: No Patient : No : No Control Method: none PFSH Medical History (Updated 03/03/24 @ 13:15 by JERMAN Ochoa) Preeclampsia Surgical History (Updated 03/03/24 @ 10:32 by Teri Myers) History of tonsillectomy Family History (Updated 03/03/24 @ 10:35 by Teri Myers) Aunt Breast cancer, Onset Age: 34 Grandfather Throat cancer Social History (Updated 03/03/24 @ 10:37 by Teri Myers) adopted: No number of children: 1 current occupational status: employed sexually active: Yes Smoking Status: Current every day smoker alcohol intake: never substance use type: does not use and marijuana caffeine: Yes Type: carbonated beverages danna/baptism: AGNOSTIC seatbelt use: always do you feel safe at home: Yes HPI ER F/U AUB CYST Details: LALITHA GARCIA is a 28 year old who presents for vaginal bleeding since February 13; previous menses prior was January 2; 5 days. She reports she has noticed also pelvic pain. She reports she is filling a tampon ultra every 2-3hrs. She reports she is using pads/adult diapers at night where these are not completely filled. She does not wear pads during the day. She reports she has lightheadedness at times. See was seen in ER on 02/26/2024. Ultrasound reviewed showing right sided ovarian simple cysts. Also mention of myometrial mass likely consistent with fibroid. CBC was obtained and stable. She was discharged and recommended follow up with G[facility]ING OPERATOR. She has not been seen prior in this office. There are no other further records for review. She reports she has had PAP smear completed in 2021 and states this was negative. She is sexually active; reports she would like to be tested for STD'S/I as well today as there has been multiple partners. Urine testing reviewed from ER and negative. Female Reproductive History Last Menstrual Period: 01/23/24 Bleeding Duration: 5 History 2 Elective abortions Hx Para 1 Spontaneous abortions 1 Hx # Term Pregnancies Ectopic pregnancies Hx # Pregnancies Multiple births # of living children 1 Past Pregnancies Del. Date Name GA/Weeks Outcome Route Bth Weight Infant Gen Labor Lgth Anesthesia Del Locatn Provider FOB 04/04/22 Jose Angel ROS Const Constitutional: Reports weight gain; Denies body ache, chills, fatigue, fever(s), headache(s) or malaise Eyes Eyes: Denies blurry vision or diplopia Cardio Card: Denies chest pain at rest Resp Resp: Denies cough or dyspnea GI GI: Denies abdominal pain, constipation or nausea : Reports menorrhagia, metrorrhagia and pelvic pain; Denies hematuria, vaginal discharge, vaginal dryness, vaginal odor or vaginal pruritus Endo Endo: Denies cold intolerance, excessive sweating, heat intolerance or polydipsia Exam Const General: cooperative, healthy appearing, comfortable, no acute distress, well groomed and well hydrated Nutritional Appearance: well nourished Orientation: alert, awake and oriented x3 Eyes General: appearance normal, both eyes and all related structures Neck Neck: normal visual inspection, full ROM and no lymphadenopathy Thyroid: thyroid normal Resp Effort Inspection: normal respiratory effort, able to speak in complete sentences and symmetric chest movement GI Inspection: normal to inspection Palpation: soft and no hepatosplenomegaly General: bladder normal to palpation External Female Exam: normal external appearance and normal appearance of the urethra Urethra: normal appearance of the urethra Speculum Exam - Vagina: normal appearance of the vagina, no cysts, no lesions, vaginal bleeding (cervical origin. ) and nontender Speculum Exam - Cervix: nontender Bimanual Exam- Vagina Uterus: normal bimanual exam, uterine size normal, bladder normal to palpation, No tender, normal palpation and non-tender Bimanual Exam- (more content not included)... Normal [facility] Emergency Department Summary on 02-27-2024 Emergency Department Summary [facility] Medical Records Department [address] [place] [address] Emergency Department Summary 02/27/24 MR#: [id number] Acct: [id number] Name: LALITHA GARCIA Rep #: [id number] : 1995 28 From: John Gonzalez DO PCP: Care Physician,No Primary Status:DEP ER Location: ED HPI History of Present Illness Chief Complaint: Abd Pain Informant: patient Narrative Narrative: Patient is a 28-year-old female with past medical history of a uterine fibroid. She states for the past 2 weeks she has been having persistent vaginal bleeding and lower abdominal discomfort. She denies any concern for she denies any fevers or chills or dysuria. She states she is currently not on any type of hormone replacement therapy and she denies any history of bleeding disorder or blood thinner use. She states that she does not have a doctor to follow-up with and based on the prolonged nature of her bleeding comes in for evaluation PFSH PFS Home Medications ???Medication ???Instructions ???Recorded ???Last Taken ???Type NK 02/26/24 Unknown History Allergy/AdvReac Type Severity Reaction Status Date / Time latex AdvReac Rash Verified 02/26/24 19:33 Social History Smoking Status: Never smoker ROS ROS ED Constitutional Constitutional ED: Denies chills or fever(s) Eyes Eyes: Denies blurry vision or change in vision ENT ENT ED: Denies sore throat Cardiovascular Cardiovascular: Denies chest pain Respiratory/Chest Respiratory/Chest: Denies cough or dyspnea Gastrointestinal Gastrointestinal: Reports abdominal pain; Denies constipation, diarrhea, melena, nausea or vomiting Genitourinary Genitourinary ED: Reports other Details: Positive vaginal bleeding ; Denies dysuria or hematuria Musculoskeletal Musculoskeletal: Denies back pain or myalgias Integumentary Denies rash Neurologic Neurologic: Denies headache(s) Hematologic/Lymphatic Hematologic/Lymphatic: Denies easy bleeding or easy bruising EXAM Physical Exam Const Vital Signs: 02/26/24 19:32 02/27/24 00:10 Temperature 97.9 F 97.6 F L Temperature Source Temporal Pulse Rate 114 H 81 Respiratory Rate 16 16 Blood Pressure 152/92 H 131/72 H Blood Pressure Mean 112 91 Pulse Ox 98 99 Oxygen Delivery Method Room Air Positive well nourished, well developed and obese General Appearance ED: well developed; Negative for pallor Nutritional Appearance: obese HEENT HEENT Narrative: Normocephalic atraumatic Eyes PERRL and EOMs intact bilaterally General Eye ED: Negative for pale conjunctiva or scleral icterus Neck supple Resp normal respiratory effort and clear to auscultation bilaterally Cardio regular rate and regular rhythm Rate: other Other Details: Heart is regular rate and rhythm without murmurs rubs or gallop Radial and carotid pulses are equal and symmetric GI normal to inspection, nondistended, normoactive bowel sounds, non-tender, non-distended and no masses GI Narrative: No voluntary guarding or rigidity or pulsatile mass Auscultation: normoactive bowel sounds Palpation: soft Narrative: Patient deferred Back/Spine no CVA tenderness Extremity normal to inspection Neuro oriented x3, CN's II-XII intact bilaterally and no sensory deficits noted Sensorium / Orientation: alert Motor Exam: strength 5/5 throughout Psych mental status grossly normal Skin no rashes or lesions noted and no wounds General Skin Exam: Negative for jaundice or pallor MDM MDM MDM Narrative Medical decision making narrative: Patient arrived to the ER slightly hypertensive but otherwise with stable vital. She reported 2 weeks of persistent vaginal bleeding and there is concern for a ectopic versus missed versus ovarian cyst versus uterine fibroid versus dysfunctional uterine bleeding versus acute blood loss anemia. Secondary to this basic labs were obtained as well as a transvaginal ultrasound. Labs showed no clinically significant findings in transvaginal ultrasound revealed an ovarian cyst as well as uterine fibroid but otherwise no acute changes. Therefore this time as vitals are stable there is no need for a blood transfusion and there is no signs of infection there is no need for inpatient workup and he is otherwise safe for discharge with outpatient follow-up History Record Review Discussion w/independent historian: Patient Lab Data Attestation: I reviewed the patient's lab results. Labs: Laboratory Results - last 24 hr 02/26/24 02/26/24 19:40 20:48 WBC 5.4 RBC 4.48 Hgb 13.0 Hct 39.7 MCV 88.6 MCH 29.0 MCHC 32.7 RDW Std Deviation 41.3 RDW Coeff of Raghu 12.8 Plt Count 305 MPV 9.2 Immature Gran % (Auto) 0.200 Neut % (Auto) 37.0 L Lymph % (Auto) 50.2 (more content not included)... Normal [facility] CBC W/Diff, Automatedon 09-0 -2023 Absolute Lymph 2.73 X10 3/uL Normal 0.83-4.51 [facility] Comment on above: Performed By: #### M 100.678 #### [facility] [address] [place], [address] Absolute Neut 2.0 X10 3/uL Normal 2.0-7.7 [facility] Comment on above: Performed By: #### M 100.678 #### [facility] [address] [place], [address] Basophils/100 WBC (Bld) 0.7 % Normal 0-1 [facility] Comment on above: Performed By: #### M 100.678 #### [facility] [address] [place], [address] Eosinophils/100 WBC (Bld) 2.9 % Normal 0-5 [facility] Comment on above: Performed By: #### M 100.678 #### [facility] [address] [place], [address] Erythrocyte distribution width (RBC) [Ratio] 12.8 % Normal 11.6-14.6 [facility] Comment on above: Performed By: #### M 100.678 #### [facility] [address] [place], [address] Hematocrit (Bld) [Volume fraction] 39.7 % Normal 37-47 [facility] Comment on above: Performed By: #### M 100.678 #### [facility] [address] [place], [address] Hemoglobin (Bld) [Mass/Vol] 13.0 g/dL Normal 12.0-15.0 [facility] Comment on above: Performed By: #### M 100.678 #### [facility] [address] [place], [address] IG% 0.200 Normal 0.0-0.9 [facility] Comment on above: Result Comment: IG% - Immature Granulocytes (promyelocytes, myelocytes and metamyelocytes) > 1% indicates that a LEFT SHIFT is Present. Performed By: #### M 100.678 #### [facility] [address] [place], [address] Lymphocytes/100 WBC (Bld) 50.2 % High 19-41 [facility] Comment on above: Performed By: #### M 100.678 #### [facility] [address] [place], [address] MCH (RBC) [Entitic mass] 29.0 pg Normal 27.0-32.0 [facility] Comment on above: Performed By: #### M 100.678 #### [facility] [address] [place], [address] MCHC (RBC) [Mass/Vol] 32.7 g/dL Normal 32-36 [facility] Comment on above: Performed By: #### M 100.678 #### [facility] [address] [place], [address] MCV (RBC) [Entitic vol] 88.6 fL Normal 81-99 [facility] Comment on above: Performed By: #### M 100.678 #### [facility] [address] [place], [address] Monocytes/100 WBC (Bld) 9.0 % Normal 0-10 [facility] Comment on above: Performed By: #### M 100.678 #### [facility] [address] [place], [address] Neutrophils/100 WBC (Bld) 37.0 % Low 47-70 [facility] Comment on above: Performed By: #### M 100.678 #### [facility] [address] [place], [address] Nucleated RBC (Bld) [#/Vol] 0 10*3/uL Normal 0-5 [facility] Comment on above: Performed By: #### M 100.678 #### [facility] [address] [place], [address] Platelet mean volume (Bld) [Entitic vol] 9.2 fL Normal 6.2-12.0 [facility] Comment on above: Performed By: #### M 100.678 #### [facility] [address] [place], [address] Platelets (Bld) [#/Vol] 305 10*3/uL Normal 150-450 [facility] Comment on above: Performed By: #### M 100.678 #### [facility] [address] [place], [address] RBC (Bld) [#/Vol] 4.48 10*6/uL Normal 4.2-5.4 [facility] Comment on above: Performed By: #### M 100.678 #### [facility] [address] [place], [address] RDW SD 41.3 fl Normal 35.1-43.9 [facility] Comment on above: Performed By: #### M 100.678 #### [facility] [address] [place], [address] WBC (Bld) [#/Vol] 5.4 10*3/uL Normal 4.4-11.0 [facility] Comment on above: Performed By: #### M 100.678 #### [facility] [address] [place], [address] Comprehensive Metabolic Prof [facility] 02-26-2024 Albumin [Mass/Vol] 3.5 g/dL Normal 3.2-5.0 [facility] Comment on above: Performed By: #### M 100.678 #### [facility] [address] [place], [address] Albumin/Globulin [Mass ratio] 1.1 {ratio} Normal 0.9-2.4 [facility] Comment on above: Performed By: #### M 100.678 #### [facility] [address] [place], [address] ALK P 84 U/L Normal 45-117 [facility] Comment on above: Performed By: #### M 100.678 #### [facility] [address] [place], [address] ALT [Catalytic activity/Vol] 32 U/L Normal 13-56 [facility] Comment on above: Performed By: #### M 100.678 #### [facility] [address] [place], [address] AST [Catalytic activity/Vol] 13 U/L Low 15-37 [facility] Comment on above: Result Comment: Mode rate Hemolysis, Result may be falsely increased. Performed By: #### M 100.678 #### [facility] [address] [place], [address] Bilirubin [Mass/Vol] 0.20 mg/dL Normal 0.20-1.00 [facility] Comment on above: Result Comment: For patients on eltrombopag therapy, use of Dimension Dexter TBIL is not recommended. Performed By: #### M 100.678 #### [facility] [address] [place], [address] BUN/CRE 13.2 RATIO Normal 10-20 [facility] Comment on above: Performed By: #### M 100.678 #### [facility] [address] [place], [address] CA,Total 8.9 mg/dL Normal 8.5-10.1 [facility] Comment on above: Performed By: #### M 100.678 #### [facility] [address] [place], [address] Chloride [Moles/Vol] 108 mmol/L High 98-107 [facility] Comment on above: Performed By: #### M 100.678 #### [facility] [address] [place], [address] CO2 [Moles/Vol] 27.0 mmol/L Normal 21.0-32.0 [facility] Comment on above: Performed By: #### M 100.678 #### [facility] [address] [place], [address] Creatinine [Mass/Vol] 0.68 mg/dL Normal 0.55-1.02 [facility] Comment on above: Result Comment: The validity of the calculated GFR GFRAA in patients over 70 years has not been determined. Clinical correlation is essential. Performed By: #### M 100.678 #### [facility] [address] [place], [address] ECRCL 198.87 ml/min Normal [facility] Comment on above: Performed By: #### M 100.678 #### [facility] [address] [place], [address] EST GFR - AA 132 mL/min Normal >60 [facility] Comment on above: Result Comment: Afri can Romanian GFR Calc Performed By: #### M 100.678 #### [facility] [address] [place], [address] GAP 5 Normal 5-15 [facility] Comment on above: Performed By: #### M 100.678 #### [facility] [address] [place], [address] GFR/1.73 sq M.predicted among non-blacks MDRD (S/P/Bld) [Vol rate/Area] 109 mL/min/{1.73_m2} Normal >60 [facility] Comment on above: Result Comment: Non- GFR Calc Performed By: #### M 100.678 #### [facility] [address] [place], [address] Globulin (S) [Mass/Vol] 3.2 g/dL Normal 2.2-4.2 [facility] Comment on above: Performed By: #### M 100.678 #### [facility] [address] [place], [address] Glucose [Mass/Vol] 104 mg/dL Normal 74-106 [facility] Comment on above: Result Comment: Fast ing Glucose result from 100 to 125 mg/dL suggests IMPAIRED HOMEOSTASIS per A.D.A. criteria. Performed By: #### M 100.678 #### [facility] [address] [place], [address] Potassium [Moles/Vol] 3.9 mmol/L Normal 3.5-5.1 [facility] Comment on above: Result Comment: Mode rate Hemolysis, Result may be falsely increased. Performed By: #### M 100.678 #### [facility] [address] [place], [address] Sodium [Moles/Vol] 140 mmol/L Normal 136-145 [facility] Comment on above: Performed By: #### M 100.678 #### [facility] [address] [place], [address] T PROT 6.7 g/dL Normal 6.4-8.2 [facility] Comment on above: Performed By: #### M 100.678 #### [facility] [address] [place], [address] Urea nitrogen [Mass/Vol] 9 mg/dL Normal 7-18 [facility] Comment on above: Performed By: #### M 100.678 #### [facility] [address] [place], [address] ,Serum,hCG Quali.on 02-26-2024 HCG, SERUM QUAL Negative Normal [facility] Comment on above: Performed By: #### M 100.678 #### [facility] [address] [place], [place], [address] Transvaginal Non-on 02-26-2024 Transvaginal Non- [facility] [address] [place] [address] Transvaginal Non- MR#: [id number] Acct: [id number] Name: LALITHA GARCIA Rep #: [id number] : 1995 F 28 From: Julio Singh PCP: Care Physician,No Primary Status: REG ER Study: Transvaginal Non- Date of Exam: Exam# [id number] Ordering Dr: John Gonzalez DO :[id number] STUDY: ULTRASOUND TRANSVAGINAL CLINICAL: Female, 28 years old. vaginal bleeding and pain TECHNIQUE: Transvaginal COMPARISON: None. FINDINGS: Normal uterine size measuring 9.3 x 5.6 x 4.6 cm in maximal craniocaudal dimension. Myometrial mass measures 0.8 x 1 x 1 0.7 cm. Normal endometrial thickness measuring 7 mm. There are no endometrial masses, and there is no fluid in the endometrial cavity. Normal uterine cervix. Normal right ovary, measuring 4.4 x 2.8 x 2.7 cm. There are multiple follicles with a dominant simple cyst measuring 1.5 x 1.5 x 1.3 cm. There is also a paraovarian cyst measuring 1.6 x 1.6 x 1.6 cm which appears simple. Blood flow normal. Normal left ovary, measuring 3.2 x 2.2 x 2.1 cm. There are multiple follicles without a dominant cyst. There is no free fluid in the pelvis. Polycystic ovary disease: No. US/Transvaginal Non- IMPRESSION: Right ovarian cyst without evidence of torsion. Small uterine Fibroid. Electronically Signed: Julio Flores MD at 23:49 EDT Reading Location ID and State: [facility] / [place] Tel , Service support , CC: John Gonzalez DO; No Primary Care Physician [employer]: Signed Normal [facility] Urinalysis, Completeon 02-25 BACTERIA RARE Normal None Seen [facility] Comment on above: Order Comment: CLEAN CATCH Performed By: #### M 100.678 #### [facility] [address] [place], [address] EPI,SQUAMOUS 0-5 SEEN Normal 5-10 [facility] Comment on above: Order Comment: CLEAN CATCH Performed By: #### M 100.678 #### [facility] [address] [place], [address] RBC 10-25 SEEN Normal 0-5 [facility] Comment on above: Order Comment: CLEAN CATCH Performed By: #### M 100.678 #### [facility] [address] [place], [address] Mucus Ql (Urine sed) 0 SEEN Normal [facility] Comment on above: Order Comment: CLEAN CATCH Performed By: #### M 100.678 #### [facility] [address] [place], [address] WBC 0 SEEN Normal 0-5 [facility] Comment on above: Order Comment: CLEAN CATCH Performed By: #### M 100.678 #### [facility] [address] [place], [address] ED NOTEon 12-27-2023 ED NOTE HNO ID: [id number] Author: TARUN MCDONALD RN Service: ? Author Type: Registered Nurse Type: ED Notes Filed: 12/27/2023 18:25 Note Text: Pt is AANDO x 3, per ED provider, pt condition has improved and/or stable for discharge. Discussed discharge instructions with pt including new prescriptions and importance of follow up with PCP. Education provided, including s/s to return to ER as needed for persistent/worsening symptoms or any new concerns. Pt verbalized understanding. All questions answered and pt denies any needs at this time. Pt ambulatory with steady gait on departure [facility] ED NOTE HNO ID: [id number] Author: NEFTALI KRUEGER, TOMMIE Service: Emergency Medicine Author Type: Registered Nurse Type: ED Notes Filed: 12/27/2023 17:58 Note Text: Pt independently ambulatory to restroom [facility] ED NOTE HNO ID: [id number] Author: RACHANA CHASE RN Service: ? Author Type: Registered Nurse Type: ED Notes Filed: 12/27/2023 17:50 Note Text: Pt in with R upper tooth pain x five days. [facility] ED PROV NOTEon 12-27-2023 ED PROV NOTE HNO ID: [id number] Author: ANTHONY TINOCO PA-C Service: ? Author Type: Physician Rubber Attacher Type: ED Provider Notes Filed: 12/27/2023 19:42 Note Text: ED Provider Note Patient Name: Lalitha Garcia : 1995 SERVICE DATE: 12/27/23 History Patient presents with: Dental Problem Patient is a 28-year-old female presents to the ER concern of dental pain for 5 days. Patient states back in March, she cracked this tooth. It was not really giving her any trouble until the last 5 days but has become progressively more painful. States she feels like the pain is radiating into her jaw. No new injury. Has not been able to get dental appointment yet. History reviewed. No pertinent past medical history. History reviewed. No pertinent surgical history. No family history on file. Social History Tobacco Use - Smoking status: Not on file - Smokeless tobacco: Not on file Substance and Sexual Activity - Alcohol use: Not on file - Drug use: Not on file - Sexual activity: Not on file ALLERGIES No Known Allergies Review of Systems Constitutional: Negative for chills and fever. HENT: Positive for dental problem. Eyes: Negative for visual disturbance. Respiratory: Negative for chest tightness and shortness of breath. Cardiovascular: Negative for chest pain. Gastrointestinal: Negative for abdominal pain, nausea and vomiting. Genitourinary: Negative for dysuria. Allergic/Immunologic: Negative for immunocompromised state. Neurological: Negative for dizziness and light-headedness. Psychiatric/Behavioral: Negative for suicidal ideas. All other systems reviewed and are negative. Physical Exam Vitals [12/27/23 1748] BP Pulse Temp Temp src Resp SpO2 Weight Height 147/91 (!) 102 37.2 ?C (98.9 ?F) -- 18 100 % 136.1 kg (300 lb) -- Physical Exam Vitals and nursing note reviewed. HENT: Head: Normocephalic and atraumatic. Mouth/Throat: Dentition: Abnormal dentition. Dental tenderness and dental caries present. No dental abscesses. Cardiovascular: Rate and Rhythm: Normal rate and regular rhythm. Pulses: Normal pulses. Heart sounds: Normal heart sounds. Musculoskeletal: General: Normal range of motion. Cervical back: Normal range of motion and neck supple. Skin: General: Skin is warm. Neurological: Mental Status: She is alert and oriented to person, place, and time. Psychiatric: Mood and Affect: Mood normal. Behavior: Behavior normal. Diagnostic Testing ED Labs Ordered and Reviewed HCG URINE - ED(POC) - Normal Procedures ED Course / Clinical Impression Clinical Impressions as of 12/27/23 1811 Pain, dental Dental infection Cracked tooth MDM / Disposition / Plan Patient was seen in the emergency department for dental pain Triage notes, medical records, nursing notes were reviewed No trismus. No facial swelling. Cracked tooth in the right upper mouth with surrounding gum erythema and tenderness to palpation. No abscess. Urine hCG is negative. Patient given IM Toradol and first dose of amoxicillin here. Advised to continue home as well as naproxen for pain. Given dental packet for referrals and benzocaine lollipops. Patient is agreeable and comfortable with the plan. Strict return precautions were discussed and all of her questions were answered. Patient was discharged in stable condition. Differential Diagnoses - Dental pain, dental infection - Dental abscess - Benito's angina Disposition The patient was discharged. Counseled patient regarding lab results, radiology results and suspected diagnosis. Prescriptions and Discharge Orders Discharge Orders naproxen (NAPROSYN) 500 mg tablet 2 TIMES DAILY NEEDED Route: ORAL Dose: 500 mg amoxicillin (AMOXIL) 875 mg tablet 2 TIMES DAILY Route: ORAL Dose: 875 mg SIGNATURE: SANGITA Lazaro HADIL 12/27/231941 [facility] XR FOOT MINIMUM 3 VIEWS DIANE Buck 09-23-2022 XR FOOT MINIMUM 3 VIEWS RIGHT ORIGINAL HISTORY: Pain, fall previous day COMPARISON: No FINDINGS: There are no acute fractures or dislocations. Alignment is within normal limits. The soft tissues are unremarkable. IMPRESSION: Normal examination. Interpreted by: Katerin Ya MD Preliminary Report By: Katerin Ya MD Electronically signed By Katerin Ya MD Dictated Date: 09/23/2022 4:37:57 PM Prelim Date: 09/23/2022 4:38:35 PM Sign Date: 09/23/2022 4:38:35 PM Ordering Provider: [facility]) Final Surgical Pathology Rep [facility] 04-09-2022 Final Surgical Pathology Report . Pathology Reports Accession: Collected Date/Time: Received Date/Time: Pathologist: [id number] 04/04/2022 03:46 EDT 04/04/2022 07:48 EDT BRENNAN CAROLINA MD Final Surgical Pathology Report DIAGNOSIS: PLACENTA: THIRD TRIMESTER PLACENTA WITHOUT SIGNIFICANT MICROSCOPIC PATHOLOGY. CLINICAL INFORMATION: 37.2 week placenta preE Procedure: 37.2 Preoperative diagnosis: 37.2 week preE Postoperative diagnosis: 37.2 week preE SPECIMEN: A 37.2 WEEK PLACENTA GROSS DESCRIPTION: A. Received in formalin, labeled with the patients name, Case #[id number], and placenta is a bowens placenta weighing 591 g and measuring 19 x 18 x 2.1 cm. The 3 vessel umbilical cord inserts 5.5 cm to the nearest placental margin, measures 11.5 cm long, and 1.8 cm diameter. Extraplacental membranes are purple -joya, opaque and inserting at the placental margin. The surface is purple-blue with arborizing vasculature. The maternal surface is red-brown with mostly intact lobulations focal white calcified specks sporadically throughout the surface. On cut section the disc is red-brown, soft and spongy with no areas of hemorrhage or lesion. Customer Service Supervisor sections in 3 cassettes. Dictated by KENDRA CASTILLO MICROSCOPIC DESCRIPTION: Slides reviewed. Electronically Signed by Pathology Report verified by [facility] BRENNAN CAROLINA Sign out Date: 04/09/2022 13:09 Performing Lab: [address] [address] [facility] Pathology Dept Normal [facility] ([place] .Auto Diffon 04-06-2022 Basophil, Absolute 0.0 10 3/mcL Normal 0.0-0.3 [facility] ([place] Comment on above: Performed By: #### G FR, FMH, CMP, LD #### [address] [address] Basophils/100 WBC (Bld) 0.4 % Normal 0.0-2.5 [facility] ([place] Comment on above: Performed By: #### G FR, FMH, CMP, LD #### [address] [address] Eosinophil, Absolute 0.3 10 3/mcL Normal 0.0-0.7 [facility] ([place] Comment on above: Performed By: #### G FR, FMH, CMP, LD #### [address] [address] Eosinophils/100 WBC (Bld) 4.6 % Normal 0.0-6.0 [facility] [place] Comment on above: Performed By: #### G FR, FMH, CMP, LD #### [address] [address] Lymphocyte, Absolute 1.6 10 3/mcL Normal 0.9-4.3 [facility] ([place] Comment on above: Performed By: #### G FR, FMH, CMP, LD #### [address] [address] Lymphocytes/100 WBC (Bld) 21.8 % Normal 20.0-40.0 [facility] ([place] Comment on above: Performed By: #### G FR, FMH, CMP, LD #### [address] [address] Monocyte, Absolute 0.6 10 3/mcL Normal 0.1-1.4 [facility] ([place] Comment on above: Performed By: #### G FR, FMH, CMP, LD #### [address] [address] Monocytes/100 WBC (Bld) 8.8 % Normal 2.0-13.0 [facility] ([place] Comment on above: Performed By: #### G FR, FMH, CMP, LD #### [address] [address] Neutrophils/100 WBC (Bld) 64.4 % Normal 50.0-75.0 [facility] ([place] Comment on above: Performed By: #### G FR, FMH, CMP, LD #### [address] [address] .GFRon 04-06-2022 GFR Non- >60 Normal [facility] ([place] Comment on above: Result Comment: GFR Population mean for , Non- Americans Ages 20-29 = 116 mL/min/1.73 sq.m. Ages 30-39 = 107 mL/min/1.73 sq.m. Ages 40-49 = 99 mL/min/1.73 sq.m. Ages 50-59 = 93 mL/min/1.73 sq.m. Ages 60-69 = 85 mL/min/1.73 sq.m. Ages 70+ = 75 mL/min/1.73 sq.m. Chronic Kidney Disease: Less than 60 mL/min/1.73 square meters End Stage Renal Disease: Less than 15 mL/min/1.73 square meters Performed By: #### G FR, FMH, CMP, LD #### [address] [address] GFR >60 Normal [facility] [place] Comment on above: Result Comment: GFR Population mean for , Non- Americans Ages 20-29 = 116 mL/min/1.73 sq.m. Ages 30-39 = 107 mL/min/1.73 sq.m. Ages 40-49 = 99 mL/min/1.73 sq.m. Ages 50-59 = 93 mL/min/1.73 sq.m. Ages 60-69 = 85 mL/min/1.73 sq.m. Ages 70+ = 75 mL/min/1.73 sq.m. Chronic Kidney Disease: Less than 60 mL/min/1.73 square meters End Stage Renal Disease: Less than 15 mL/min/1.73 square meters Performed By: #### G FR, FMH, CMP, LD #### [place] [address] .NEUABSon 04-06-2022 Neutrophil, Absolute 4.6 10 3/mcL Normal 2.3-8.1 [facility] ([place] Comment on above: Performed By: #### Moreno SCHMITT, FMH, CMP, LD #### [place] [address] CBCon 04-06-2022 Erythrocyte distribution width (RBC) [Ratio] 13.6 % Normal 11.5-15.5 [facility] ([place] Comment on above: Performed By: #### Moreno FR, FMH, CMP, LD #### [place] [address] Hematocrit (Bld) [Volume fraction] 27.7 % Low 34.0-46.0 [facility] ([place] Comment on above: Performed By: #### G FR, FMH, CMP, LD #### [place] [address] Hgb 9.4 G/dL Low 12.0-16.0 [facility] [place] Comment on above: Performed By: #### G FR, FMH, CMP, LD #### [place] [address] MCH (RBC) [Entitic mass] 30.3 pg Normal 27.0-33.0 [facility] ([place] Comment on above: Performed By: #### G FR, FMH, CMP, LD #### [place] [address] MCHC 34.1 G/dL Normal 32.0-36.0 [facility] [place] Comment on above: Performed By: #### G FR, FMH, CMP, LD #### [address] [address] MCV (RBC) [Entitic vol] 88.9 fL Normal 80.0-99.0 [facility] [place] Comment on above: Performed By: #### G FR, FMH, CMP, LD #### [address] [address] Platelet 262 10 3/mcL Normal 150-450 [facility] [place] Comment on above: Performed By: #### G FR, FMH, CMP, LD #### [address] [address] Platelet mean volume (Bld) [Entitic vol] 7.4 fL Normal 6.6-10.5 [facility] ([place] Comment on above: Performed By: #### G FR, FMH, CMP, LD #### [place] [id number] RBC 3.11 10 6/mcL Low 4.10-5.30 [facility] [place] Comment on above: Performed By: #### G FR, FMH, CMP, LD #### [address] [address] WBC 7.2 10 3/mcL Normal 4.5-10.8 [facility] ([place] Comment on above: Performed By: #### G FR, FMH, CMP, LD #### [place] [address] CMPon 04-06-2022 Calcium [Mass/Vol] 8.6 mg/dL Low 8.7-10.4 [facility] ([place] Comment on above: Performed By: #### G FR, FMH, CMP, LD #### [address] [address] Potassium [Moles/Vol] 4.6 mmol/L Normal 3.5-5.0 [facility] [place] Comment on above: Performed By: #### G FR, FMH, CMP, LD #### [place] [id number] Albumin Level 2.5 G/dL Low 3.2-4.8 [facility] ([place] Comment on above: Performed By: #### Moreno SCHMITT, FMH, CMP, LD #### [place] [id number] Albumin/Globulin [Mass ratio] 1.0 {ratio} Normal 0.9-1.6 [facility] ([place] Comment on above: Performed By: #### Moreno SCHMITT, FMH, CMP, LD #### [address] [address] ALP [Catalytic activity/Vol] 82 U/L Normal 38-126 [facility] [place] Comment on above: Performed By: #### Moreno SCHMITT, FMH, CMP, LD #### [place] [id number] ALT [Catalytic activity/Vol] 10 U/L Normal 10-49 [facility] [place] Comment on above: Performed By: #### Moreno SCHMITT, FMH, CMP, LD #### [place] [id number] AST [Catalytic activity/Vol] 15 U/L Normal 8-34 [facility] [place] Comment on above: Performed By: #### Moreno SCHMITT, FMH, CMP, LD #### [place] [id number] Bili Total 0.20 mg/dL Normal 0.20-1.20 [facility] [place] Comment on above: Result Comment: Use of this assay is not recommended for patients undergoing treatment with eltrombopag due to the potential for falsely elevated results. Performed By: #### G FR, FMH, CMP, LD #### [place] [id number] BUN/Creatinine Ratio 21.3 ratio Normal 10.0-22.0 [facility] [place] Comment on above: Performed By: #### G FR, FMH, CMP, LD #### [place] [id number] Chloride [Moles/Vol] 107 mmol/L Normal 98-110 [facility] [place] Comment on above: Performed By: #### G FR, FMH, CMP, LD #### [address] [address] CO2 [Moles/Vol] 26 mmol/L Normal 22-32 [facility] [place] Comment on above: Performed By: #### G FR, FMH, CMP, LD #### [address] [address] Creatinine [Mass/Vol] 0.61 mg/dL Normal 0.50-1.20 [facility] [place] Comment on above: Performed By: #### G FR, FMH, CMP, LD #### [address] [address] Electrolyte Balance 6.0 mEq/L Normal 4.0-15.0 [facility] [place] Comment on above: Performed By: #### G FR, FMH, CMP, LD #### [address] [address] Globulin 2.6 G/dL Normal 1.5-3.8 [facility] [place] Comment on above: Performed By: #### G FR, FMH, CMP, LD #### [address] [address] Glucose [Mass/Vol] 99 mg/dL Normal 70-110 [facility] ([place] Comment on above: Performed By: #### G FR, FMH, CMP, LD #### [address] [address] Sodium [Moles/Vol] 139 mmol/L Normal 136-145 [facility] ([place] Comment on above: Performed By: #### G FR, FMH, CMP, LD #### [address] [address] Total Protein 5.1 G/dL Low 5.7-8.2 [facility] [place] Comment on above: Result Comment: No te - New Reference Range in effect 20 Performed By: #### G FR, FMH, CMP, LD #### [address] [address] Urea nitrogen [Mass/Vol] 13.0 mg/dL Normal 8.0-22.0 [facility] [place] Comment on above: Performed By: #### G FR, FMH, CMP, LD #### [address] [address] .Auto Diffon 04-05-2022 Basophil, Absolute 0.0 10 3/mcL Normal 0.0-0.3 [facility] ([place] Comment on above: Performed By: #### G FR, FMH, CMP, LD #### [address] [address] Basophils/100 WBC (Bld) 0.2 % Normal 0.0-2.5 [facility] [place] Comment on above: Performed By: #### G FR, FMH, CMP, LD #### [address] [address] Eosinophil, Absolute 0.2 10 3/mcL Normal 0.0-0.7 [facility] [place] Comment on above: Performed By: #### G FR, FMH, CMP, LD #### [address] [address] Eosinophils/100 WBC (Bld) 2.6 % Normal 0.0-6.0 [facility] [place] Comment on above: Performed By: #### G FR, FMH, CMP, LD #### [address] [address] Lymphocyte, Absolute 1.8 10 3/mcL Normal 0.9-4.3 [facility] [place] Comment on above: Performed By: #### G FR, FMH, CMP, LD #### [address] [address] Lymphocytes/100 WBC (Bld) 19.8 % Low 20.0-40.0 [facility] [place] Comment on above: Performed By: #### G FR, FMH, CMP, LD #### [address] [address] Monocyte, Absolute 0.6 10 3/mcL Normal 0.1-1.4 [facility] ([place] Comment on above: Performed By: #### G FR, FMH, CMP, LD #### [address] [address] Monocytes/100 WBC (Bld) 6.0 % Normal 2.0-13.0 [facility] [place] Comment on above: Performed By: #### G FR, FMH, CMP, LD #### [address] [address] Neutrophils/100 WBC (Bld) 71.4 % Normal 50.0-75.0 [facility] ([place] Comment on above: Performed By: #### G FR, FMH, CMP, LD #### [address] [address] .GFRon 04-05-2022 GFR >60 Normal [facility] [place] Comment on above: Result Comment: GFR Population mean for , Non- Americans Ages 20-29 = 116 mL/min/1.73 sq.m. Ages 30-39 = 107 mL/min/1.73 sq.m. Ages 40-49 = 99 mL/min/1.73 sq.m. Ages 50-59 = 93 mL/min/1.73 sq.m. Ages 60-69 = 85 mL/min/1.73 sq.m. Ages 70+ = 75 mL/min/1.73 sq.m. Chronic Kidney Disease: Less than 60 mL/min/1.73 square meters End Stage Renal Disease: Less than 15 mL/min/1.73 square meters Performed By: #### G FR, FMH, CMP, LD #### [address] [address] GFR Non- >60 Normal [facility] [place] Comment on above: Result Comment: GFR Population mean for , Non- Americans Ages 20-29 = 116 mL/min/1.73 sq.m. Ages 30-39 = 107 mL/min/1.73 sq.m. Ages 40-49 = 99 mL/min/1.73 sq.m. Ages 50-59 = 93 mL/min/1.73 sq.m. Ages 60-69 = 85 mL/min/1.73 sq.m. Ages 70+ = 75 mL/min/1.73 sq.m. Chronic Kidney Disease: Less than 60 mL/min/1.73 square meters End Stage Renal Disease: Less than 15 mL/min/1.73 square meters Performed By: #### G FR, FMH, CMP, LD #### [place] [address] .NEUABSon 04-05-2022 Neutrophil, Absolute 6.6 10 3/mcL Normal 2.3-8.1 [facility] [place] Comment on above: Performed By: #### G FR, FMH, CMP, LD #### [place] [address] CBCon 04-05-2022 Erythrocyte distribution width (RBC) [Ratio] 13.5 % Normal 11.5-15.5 [facility] [place] Comment on above: Performed By: #### G FR, FMH, CMP, LD #### [place] [address] Hematocrit (Bld) [Volume fraction] 27.2 % Low 34.0-46.0 [facility] [place] Comment on above: Performed By: #### G FR, FMH, CMP, LD #### [place] [address] Hgb 9.1 G/dL Low 12.0-16.0 [facility] [place] Comment on above: Performed By: #### G FR, FMH, CMP, LD #### [place] [address] MCH (RBC) [Entitic mass] 29.6 pg Normal 27.0-33.0 [facility] [place] Comment on above: Performed By: #### G FR, FMH, CMP, LD #### [place] [address] MCHC 33.5 G/dL Normal 32.0-36.0 [facility] [place] Comment on above: Performed By: #### G FR, FMH, CMP, LD #### [place] [address] MCV (RBC) [Entitic vol] 88.4 fL Normal 80.0-99.0 [facility] [place] Comment on above: Performed By: #### G FR, FMH, CMP, LD #### [address] [address] Platelet 244 10 3/mcL Normal 150-450 [facility] [place] Comment on above: Performed By: #### G FR, FMH, CMP, LD #### [place] [id number] Platelet mean volume (Bld) [Entitic vol] 7.5 fL Normal 6.6-10.5 [facility] [place] Comment on above: Performed By: #### G FR, FMH, CMP, LD #### [address] [address] RBC 3.07 10 6/mcL Low 4.10-5.30 [facility] [place] Comment on above: Performed By: #### G FR, FMH, CMP, LD #### [address] [address] WBC 9.3 10 3/mcL Normal 4.5-10.8 [facility] [place] Comment on above: Performed By: #### G , FMH, CMP, LD #### [address] [address] CMPon 04-05-2022 Albumin Level 2.3 G/dL Low 3.2-4.8 [facility] [place] Comment on above: Performed By: #### G FR, FMH, CMP, LD #### [place] [id number] Albumin/Globulin [Mass ratio] 0.9 {ratio} Normal 0.9-1.6 [facility] [place] Comment on above: Performed By: #### G FR, FMH, CMP, LD #### [address] [address] ALP [Catalytic activity/Vol] 88 U/L Normal 38-126 [facility] [place] Comment on above: Performed By: #### G FR, FMH, CMP, LD #### [address] [address] ALT [Catalytic activity/Vol] 9 U/L Low 10-49 [facility] [place] Comment on above: Performed By: #### G FR, FMH, CMP, LD #### [address] [address] AST [Catalytic activity/Vol] 16 U/L Normal 8-34 [facility] [place] Comment on above: Performed By: #### G FR, FMH, CMP, LD #### [address] [address] Bili Total 0.20 mg/dL Normal 0.20-1.20 [facility] [place] Comment on above: Result Comment: Use of this assay is not recommended for patients undergoing treatment with eltrombopag due to the potential for falsely elevated results. Performed By: #### G FR, FMH, CMP, LD #### [address] [address] BUN/Creatinine Ratio 12.7 ratio Normal 10.0-22.0 [facility] [place] Comment on above: Performed By: #### G FR, FMH, CMP, LD #### [address] [address] Calcium [Mass/Vol] 7.4 mg/dL Low 8.7-10.4 [facility] ([place] Comment on above: Performed By: #### G FR, FMH, CMP, LD #### [address] [address] Chloride [Moles/Vol] 112 mmol/L High 98-110 [facility] [place] Comment on above: Performed By: #### G FR, FMH, CMP, LD #### [address] [address] CO2 [Moles/Vol] 26 mmol/L Normal 22-32 [facility] [place] Comment on above: Performed By: #### G FR, FMH, CMP, LD #### [address] [address] Creatinine [Mass/Vol] 0.63 mg/dL Normal 0.50-1.20 [facility] [place] Comment on above: Performed By: #### G , FMDemetria, CMP, LD #### [address] [address] Electrolyte Balance -1.0 mEq/L Low 4.0-15.0 [facility] [place] Comment on above: Performed By: #### G , FMH, CMP, LD #### [address] [address] Globulin 2.5 G/dL Normal 1.5-3.8 [facility] [place] Comment on above: Performed By: #### Moreno SCHMITT, FMDemetria, CMP, LD #### [address] [address] Glucose [Mass/Vol] 124 mg/dL High 70-110 [facility] ([place] Comment on above: Performed By: #### G , FMDemetria, CMP, LD #### [address] [address] Potassium [Moles/Vol] 3.7 mmol/L Normal 3.5-5.0 [facility] [place] Comment on above: Performed By: #### G , FMeDmetria, CMP, LD #### [address] [address] Sodium [Moles/Vol] 137 mmol/L Normal 136-145 [facility] ([place] Comment on above: Performed By: #### G , FMDemetria, CMP, LD #### [address] [address] Total Protein 4.8 G/dL Low 5.7-8.2 [facility] [place] Comment on above: Result Comment: No te - New Reference Range in effect 20 Performed By: #### G , FMH, CMP, LD #### [address] [address] Urea nitrogen [Mass/Vol] 8.0 mg/dL Normal 8.0-22.0 [facility] [facility] ([place]) Comment on above: Performed By: #### G , FMH, CMP, LD #### [address] [address] FMHon 04-05-2022 Mat. Hemorrhage Negative Normal [facility] ([place]) Comment on above: Performed By: #### G , FMDemetria, CMP, LD #### [address] [address] LDHon 04-05-2022 LDH 216 U/L Normal 120-246 [facility] ([place]) Comment on above: Performed By: #### G , FMH, CMP, LD #### [address] [address] MGon 04-05-2022 Magnesium [Mass/Vol] 4.6 mg/dL High 1.6-2.4 [facility] ([place] Comment on above: Performed By: #### G , FMDemetria, CMP, LD #### [address] [address] MGon 04-04-2022 Magnesium [Mass/Vol] 4.6 mg/dL High 1.6-2.4 [facility] ([place] Comment on above: Performed By: #### G , FMDemetria, CMP, LD #### [address] [address] Magnesium [Mass/Vol] 5.5 mg/dL Critically abnormal 1.6-2.4 [facility] ([place] Comment on above: Performed By: #### M G #### [address] [address] Magnesium [Mass/Vol] 5.3 mg/dL Critically abnormal 1.6-2.4 [facility] ([place] Comment on above: Performed By: #### G FR, FMH, CMP, LD #### [address] [address] Magnesium [Mass/Vol] 5.3 mg/dL Critically abnormal 1.6-2.4 [facility] ([place] Comment on above: Performed By: #### M G #### [address] [address] MGon 04-03-2022 Magnesium [Mass/Vol] 5.4 mg/dL Critically abnormal 1.6-2.4 [facility] ([place] Comment on above: Performed By: #### M G #### [place] [id number] Magnesium [Mass/Vol] 4.7 mg/dL High 1.6-2.4 [facility] ([place] Comment on above: Performed By: #### M G #### [place] [id number] Magnesium [Mass/Vol] 3.8 mg/dL High 1.6-2.4 [facility] ([place] Comment on above: Performed By: #### G FR, FMH, CMP, LD #### [place] [id number] Magnesium [Mass/Vol] 3.2 mg/dL High 1.6-2.4 [facility] ([place] Comment on above: Performed By: #### M G #### [place] [address] RPRon 04-03-2022 Reagin Ab RPR Ql (S) Non-Reactive Normal Non-Reactive [facility] ([place] Comment on above: Result Comment: The RPR test is a non-treponemal assay useful as an aid in the diagnosis of primary and secondary syphilis. It converts to positive generally within 2 weeks after the appearance of a lesion. This test is also useful for monitoring response to antibiotic therapy. A positive RPR screening test will be followed by the FTA ABS test. False positive RPR tests may occur in 1) patients with underlying autoimmune disorders, 2) elderly patients, 3) , and 4) other conditions with abnormal serum globulins. Performed By: #### G FR, FMH, CMP, LD #### [place] [id number] .Auto Diffon 04-02-2022 Basophil, Absolute 0.0 10 3/mcL Normal 0.0-0.3 [facility] ([place]) Comment on above: Performed By: #### G FR, FMH, CMP, LD #### [place] [id number] Basophils/100 WBC (Bld) 0.5 % Normal 0.0-2.5 [facility] ([place] Comment on above: Performed By: #### G FR, FMH, CMP, LD #### [address] [address] Eosinophil, Absolute 0.1 10 3/mcL Normal 0.0-0.7 [facility] ([place] Comment on above: Performed By: #### G FR, FMH, CMP, LD #### [address] [address] Eosinophils/100 WBC (Bld) 2.0 % Normal 0.0-6.0 [facility] ([place]) Comment on above: Performed By: #### G FR, FMH, CMP, LD #### [address] [address] Lymphocyte, Absolute 1.5 10 3/mcL Normal 0.9-4.3 [facility] ([place] Comment on above: Performed By: #### G FR, FMH, CMP, LD #### [address] [address] Lymphocytes/100 WBC (Bld) 24.9 % Normal 20.0-40.0 [facility] ([place] Comment on above: Performed By: #### G FR, FMH, CMP, LD #### [address] [address] Monocyte, Absolute 0.5 10 3/mcL Normal 0.1-1.4 [facility] ([place]) Comment on above: Performed By: #### G FR, FMH, CMP, LD #### [address] [address] Monocytes/100 WBC (Bld) 7.9 % Normal 2.0-13.0 [facility] ([place] Comment on above: Performed By: #### G FR, FMH, CMP, LD #### [address] [address] Neutrophils/100 WBC (Bld) 64.7 % Normal 50.0-75.0 [facility] ([place]) Comment on above: Performed By: #### G FR, FMH, CMP, LD #### [address] [address] .GFRon 04-02-2022 GFR >60 Normal [facility] ([place] Comment on above: Result Comment: GFR Population mean for , Non- Americans Ages 20-29 = 116 mL/min/1.73 sq.m. Ages 30-39 = 107 mL/min/1.73 sq.m. Ages 40-49 = 99 mL/min/1.73 sq.m. Ages 50-59 = 93 mL/min/1.73 sq.m. Ages 60-69 = 85 mL/min/1.73 sq.m. Ages 70+ = 75 mL/min/1.73 sq.m. Chronic Kidney Disease: Less than 60 mL/min/1.73 square meters End Stage Renal Disease: Less than 15 mL/min/1.73 square meters Performed By: #### M G #### [place] [address] GFR Non- >60 Normal [facility] ([place] Comment on above: Result Comment: GFR Population mean for , Non- Americans Ages 20-29 = 116 mL/min/1.73 sq.m. Ages 30-39 = 107 mL/min/1.73 sq.m. Ages 40-49 = 99 mL/min/1.73 sq.m. Ages 50-59 = 93 mL/min/1.73 sq.m. Ages 60-69 = 85 mL/min/1.73 sq.m. Ages 70+ = 75 mL/min/1.73 sq.m. Chronic Kidney Disease: Less than 60 mL/min/1.73 square meters End Stage Renal Disease: Less than 15 mL/min/1.73 square meters Performed By: #### M G #### [place] [address] .NEUABSon 04-02-2022 Neutrophil, Absolute 4.0 10 3/mcL Normal 2.3-8.1 [facility] ([place] Comment on above: Performed By: #### G FR, FMH, CMP, LD #### [place] [id number] ABIDon 04-02-2022 Antibody ID Passive Anti-D Invalid Interpretation Code [facility] ([place]) Comment on above: Order Comment: Order ed by Discern Expert Performed By: #### G , FMH, CMP, LD #### [facility] [address] [place] [id number] ABO/Rh (Gel)on 04-02-2022 ABO/Rh Interp Negative Invalid Interpretation Code [facility] ([place] Comment on above: Performed By: #### G FR, FMH, CMP, LD #### [address] [address] ABS (Gel)on 04-02-2022 ABSC Interp (Gel) Positive Normal [facility] ([place] Comment on above: Performed By: #### G FR, FMH, CMP, LD #### [address] [address] AUTOCon 04-02-2022 Auto Control Negative Normal [facility] ([place] Comment on above: Order Comment: Order ed by Discern Expert Performed By: #### G FR, FMH, CMP, LD #### [address] [address] CBCon 04-02-2022 Erythrocyte distribution width (RBC) [Ratio] 13.2 % Normal 11.5-15.5 [facility] ([place] Comment on above: Performed By: #### G FR, FMH, CMP, LD #### [address] [address] Hematocrit (Bld) [Volume fraction] 37.0 % Normal 34.0-46.0 [facility] ([place] Comment on above: Performed By: #### G FR, FMH, CMP, LD #### [address] [address] Hgb 12.5 G/dL Normal 12.0-16.0 [facility] ([place] Comment on above: Performed By: #### G FR, FMH, CMP, LD #### [address] [address] MCH (RBC) [Entitic mass] 29.7 pg Normal 27.0-33.0 [facility] ([place] Comment on above: Performed By: #### G FR, FMH, CMP, LD #### [place] [address] MCHC 33.8 G/dL Normal 32.0-36.0 [facility] ([place] Comment on above: Performed By: #### G FR, FMH, CMP, LD #### [place] [id number] MCV (RBC) [Entitic vol] 88.0 fL Normal 80.0-99.0 [facility] ([place] Comment on above: Performed By: #### G FR, FMH, CMP, LD #### [place] [address] Platelet 281 10 3/mcL Normal 150-450 [facility] ([place] Comment on above: Performed By: #### G FR, FMH, CMP, LD #### [place] [address] Platelet mean volume (Bld) [Entitic vol] 7.3 fL Normal 6.6-10.5 [facility] ([place] Comment on above: Performed By: #### G FR, FMH, CMP, LD #### [place] [address] RBC 4.20 10 6/mcL Normal 4.10-5.30 [facility] ([place] Comment on above: Performed By: #### G FR, FMH, CMP, LD #### [place] [address] WBC 6.1 10 3/mcL Normal 4.5-10.8 [facility] ([place] Comment on above: Performed By: #### G FR, FMH, CMP, LD #### [place] [address] CMPon 04-02-2022 BUN/Creatinine Ratio Unable to Calculate Normal 10.0-22.0 [facility] ([place] Comment on above: Result Comment: Unab le to calculate this test result accurately. Results used to calculate this test are outside the reportable range. Performed By: #### M G #### [address] [address] Urea nitrogen [Mass/Vol] mg/dL Low 8.0-22.0 [facility] ([place] Comment on above: Performed By: #### M G #### [address] [address] Albumin Level 3.1 G/dL Low 3.2-4.8 [facility] ([place] Comment on above: Performed By: #### M G #### [address] [address] Albumin/Globulin [Mass ratio] 1.0 {ratio} Normal 0.9-1.6 [facility] ([place] Comment on above: Performed By: #### M G #### [address] [address] ALP [Catalytic activity/Vol] 116 U/L Normal 38-126 [facility] ([place] Comment on above: Performed By: #### M G #### [address] [address] ALT [Catalytic activity/Vol] 12 U/L Normal 10-49 [facility] ([place] Comment on above: Performed By: #### M G #### [address] [address] AST [Catalytic activity/Vol] 15 U/L Normal 8-34 [facility] ([place] Comment on above: Performed By: #### M G #### [address] [address] Bili Total 0.40 mg/dL Normal 0.20-1.20 [facility] ([place] Comment on above: Result Comment: Use of this assay is not recommended for patients undergoing treatment with eltrombopag due to the potential for falsely elevated results. Performed By: #### M G #### [address] [address] Calcium [Mass/Vol] 9.3 mg/dL Normal 8.7-10.4 [facility] ([place]) Comment on above: Performed By: #### M G #### [address] [address] Chloride [Moles/Vol] 109 mmol/L Normal 98-110 [facility] ([place] Comment on above: Performed By: #### M G #### [address] [address] CO2 [Moles/Vol] 22 mmol/L Normal 22-32 [facility] ([place] Comment on above: Performed By: #### M G #### [address] [address] Creatinine [Mass/Vol] 0.47 mg/dL Low 0.50-1.20 [facility] ([place] Comment on above: Performed By: #### M G #### [address] [address] Electrolyte Balance 8.0 mEq/L Normal 4.0-15.0 [facility] ([place] Comment on above: Performed By: #### M G #### [address] [address] Globulin 3.2 G/dL Normal 1.5-3.8 [facility] ([place] Comment on above: Performed By: #### M G #### [address] [address] Glucose [Mass/Vol] 90 mg/dL Normal 70-110 [facility] ([place] Comment on above: Performed By: #### M G #### [address] [address] Potassium [Moles/Vol] 3.9 mmol/L Normal 3.5-5.0 [facility] ([place] Comment on above: Performed By: #### M G #### [address] [address] Sodium [Moles/Vol] 139 mmol/L Normal 136-145 [facility] ([place] Comment on above: Performed By: #### M G #### [address] [address] Total Protein 6.3 G/dL Normal 5.7-8.2 [facility] ([place] Comment on above: Result Comment: No te - New Reference Range in effect 20 Performed By: #### M G #### [address] [address] LDHon 04-02-2022 LDH 175 U/L Normal 120-246 [facility] ([place] Comment on above: Performed By: #### M G #### [address] [address] RPCURon 04-02-2022 U Creatinine 108.1 mg/dL Normal [facility] ([place] Comment on above: Performed By: #### G , FMH, CMP, LD #### [address] [address] U Protein 26.0 mg/dL Normal [facility] ([place] Comment on above: Performed By: #### Moreno SCHMITT, FMH, CMP, LD #### [address] [address] U Ratio Prot/Creat 0.2 ratio Normal [facility] ([place] Comment on above: Result Comment: resu lt calculated by rule GL_UR_[id number]_OLD (U Protein/U Creatinine) Performed By: #### Moreno SCHMITT, FM, CMP, LD #### [address] [address] UAon 04-02-2022 Color (U) Yellow Normal [facility] ([place] Comment on above: Performed By: #### Moreno SCHMITT, FMH, CMP, LD #### [address] [address] Glucose (U) [Mass/Vol] Negative Normal Negative [facility] ([place] Comment on above: Performed By: #### Moreno SCHMITT, FMH, CMP, LD #### [address] [address] Ketones Ql (U) 80 mg/dL Abnormal Neg-Trace [facility] ([place] Comment on above: Performed By: #### Moreno SCHMITT, FMH, CMP, LD #### [address] [address] UA Appear Clear Normal Clear [facility] ([place] Comment on above: Performed By: #### G FR, FMH, CMP, LD #### [address] [address] UA Blood Negative Normal Neg-Trace [facility] ([place] Comment on above: Performed By: #### G FR, FMH, CMP, LD #### [address] [address] UA Leuk Est Trace Normal Negative [facility] ([place] Comment on above: Performed By: #### G FR, FMH, CMP, LD #### [address] [address] UA Nitrite Negative Normal Negative [facility] ([place] Comment on above: Performed By: #### G FR, FMH, CMP, LD #### [place] [address] UA pH 6.0 Normal 5.0 - 8.0 [facility] ([place] Comment on above: Performed By: #### G FR, FMH, CMP, LD #### [place] [address] UA Protein Negative Normal Negative [facility] ([place] Comment on above: Performed By: #### G FR, FMH, CMP, LD #### [place] [address] UA Spec Grav 1.015 Normal 1.006-1.029 [facility] ([place] Comment on above: Performed By: #### G FR, FMH, CMP, LD #### [place] [address] UA Specimen Type Clean Catch Normal [facility] ([place] Comment on above: Performed By: #### G FR, FMH, CMP, LD #### [place] [address] UA Urobilinogen 0.2 E.U./dL Normal 0.2-1.0 [facility] ([place] Comment on above: Performed By: #### G FR, FMH, CMP, LD #### [place] [address] Urobilinogen (U) [Mass/Vol] Negative Normal Neg-Trace [facility] ([place] Comment on above: Performed By: #### G FR, FMH, CMP, LD #### [address] [address] .Auto Diffon 03-28-2022 Basophil, Absolute 0.1 10 3/mcL Normal 0.0-0.3 [facility] ([place] Comment on above: Performed By: #### G FR, FMH, CMP, LD #### [address] [address] Basophils/100 WBC (Bld) 0.8 % Normal 0.0-2.5 [facility] ([place] Comment on above: Performed By: #### G FR, FMH, CMP, LD #### [address] [address] Eosinophil, Absolute 0.2 10 3/mcL Normal 0.0-0.7 [facility] ([place] Comment on above: Performed By: #### G FR, FMH, CMP, LD #### [address] [address] Eosinophils/100 WBC (Bld) 2.4 % Normal 0.0-6.0 [facility] ([place] Comment on above: Performed By: #### G FR, FMH, CMP, LD #### [address] [address] Lymphocyte, Absolute 1.6 10 3/mcL Normal 0.9-4.3 [facility] ([place] Comment on above: Performed By: #### G FR, FMH, CMP, LD #### [address] [address] Lymphocytes/100 WBC (Bld) 20.2 % Normal 20.0-40.0 [facility] ([place] Comment on above: Performed By: #### G FR, FMH, CMP, LD #### [address] [address] Monocyte, Absolute 0.8 10 3/mcL Normal 0.1-1.4 [facility] ([place] Comment on above: Performed By: #### G FR, FMH, CMP, LD #### [address] [address] Monocytes/100 WBC (Bld) 10.3 % Normal 2.0-13.0 [facility] ([place] Comment on above: Performed By: #### G FR, FMH, CMP, LD #### [address] [address] Neutrophils/100 WBC (Bld) 66.3 % Normal 50.0-75.0 [facility] ([place] Comment on above: Performed By: #### G FR, FMH, CMP, LD #### [address] [address] .GFRon 03-28-2022 GFR >60 Normal [facility] ([place] Comment on above: Result Comment: GFR Population mean for , Non- Americans Ages 20-29 = 116 mL/min/1.73 sq.m. Ages 30-39 = 107 mL/min/1.73 sq.m. Ages 40-49 = 99 mL/min/1.73 sq.m. Ages 50-59 = 93 mL/min/1.73 sq.m. Ages 60-69 = 85 mL/min/1.73 sq.m. Ages 70+ = 75 mL/min/1.73 sq.m. Chronic Kidney Disease: Less than 60 mL/min/1.73 square meters End Stage Renal Disease: Less than 15 mL/min/1.73 square meters Performed By: #### G FR, FMH, CMP, LD #### [address] [address] GFR Non- >60 Normal [facility] ([place] Comment on above: Result Comment: GFR Population mean for , Non- Americans Ages 20-29 = 116 mL/min/1.73 sq.m. Ages 30-39 = 107 mL/min/1.73 sq.m. Ages 40-49 = 99 mL/min/1.73 sq.m. Ages 50-59 = 93 mL/min/1.73 sq.m. Ages 60-69 = 85 mL/min/1.73 sq.m. Ages 70+ = 75 mL/min/1.73 sq.m. Chronic Kidney Disease: Less than 60 mL/min/1.73 square meters End Stage Renal Disease: Less than 15 mL/min/1.73 square meters Performed By: #### G FR, FMH, CMP, LD #### [address] [address] .NEUABSon 03-28-2022 Neutrophil, Absolute 5.4 10 3/mcL Normal 2.3-8.1 [facility] ([place] Comment on above: Performed By: #### G FR, FMH, CMP, LD #### [place] [address] ABIDon 03-28-2022 Antibody ID Passive Anti-D Invalid Interpretation Code [facility] ([place] Comment on above: Order Comment: Order ed by Discern Expert Performed By: #### G FR, FMH, CMP, LD #### [place] [id number] ABO/Rh (Gel)on 03-28-2022 ABO/Rh Interp Negative Invalid Interpretation Code [facility] ([place] Comment on above: Performed By: #### G FR, FMH, CMP, LD #### [place] [id number] ABS (Gel)on 03-28-2022 ABSC Interp (Gel) Positive Normal [facility] ([place] Comment on above: Performed By: #### G FR, FMH, CMP, LD #### [place] [id number] AUTOCon 03-28-2022 Auto Control Negative Normal [facility] ([place] Comment on above: Order Comment: Order ed by Discern Expert Performed By: #### G FR, FMH, CMP, LD #### [place] [id number] CBCon 03-28-2022 Erythrocyte distribution width (RBC) [Ratio] 13.2 % Normal 11.5-15.5 [facility] ([place] Comment on above: Performed By: #### G FR, FMH, CMP, LD #### [place] [id number] Hematocrit (Bld) [Volume fraction] 36.6 % Normal 34.0-46.0 [facility] ([place] Comment on above: Performed By: #### G , FMH, CMP, LD #### [place] [address] Hgb 12.4 G/dL Normal 12.0-16.0 [facility] ([place] Comment on above: Performed By: #### G FR, FMH, CMP, LD #### [place] [address] MCH (RBC) [Entitic mass] 29.9 pg Normal 27.0-33.0 [facility] ([place] Comment on above: Performed By: #### G , FMH, CMP, LD #### [place] [address] MCHC 33.8 G/dL Normal 32.0-36.0 [facility] ([place] Comment on above: Performed By: #### G FR, FMH, CMP, LD #### [place] [address] MCV (RBC) [Entitic vol] 88.7 fL Normal 80.0-99.0 [facility] ([place] Comment on above: Performed By: #### G FR, FMH, CMP, LD #### [place] [address] Platelet 319 10 3/mcL Normal 150-450 [facility] ([place] Comment on above: Performed By: #### G FR, FMH, CMP, LD #### [place] [address] Platelet mean volume (Bld) [Entitic vol] 7.3 fL Normal 6.6-10.5 [facility] ([place] Comment on above: Performed By: #### G FR, FMH, CMP, LD #### [place] [address] RBC 4.13 10 6/mcL Normal 4.10-5.30 [facility] ([place] Comment on above: Performed By: #### G FR, FMH, CMP, LD #### [address] [address] WBC 8.1 10 3/mcL Normal 4.5-10.8 [facility] ([place] Comment on above: Performed By: #### G FR, FM, CMP, LD #### [address] [address] CMPon 03-28-2022 Albumin Level 3.1 G/dL Low 3.2-4.8 [facility] ([place] Comment on above: Performed By: #### G FR, FMH, CMP, LD #### [address] [address] Albumin/Globulin [Mass ratio] 1.0 {ratio} Normal 0.9-1.6 [facility] ([place] Comment on above: Performed By: #### Moreno FR, FMH, CMP, LD #### [address] [address] ALP [Catalytic activity/Vol] 111 U/L Normal 38-126 [facility] [place] Comment on above: Performed By: #### Moreno FR, FMH, CMP, LD #### [address] [address] ALT [Catalytic activity/Vol] 15 U/L Normal 10-49 [facility] ([place] Comment on above: Performed By: #### G FR, FMH, CMP, LD #### [address] [address] AST [Catalytic activity/Vol] 21 U/L Normal 8-34 [facility] ([place] Comment on above: Performed By: #### G FR, FMH, CMP, LD #### [address] [address] Bili Total 0.30 mg/dL Normal 0.20-1.20 [facility] ([place] Comment on above: Result Comment: Use of this assay is not recommended for patients undergoing treatment with eltrombopag due to the potential for falsely elevated results. Performed By: #### G FR, FMH, CMP, LD #### [facility] [address] [place], [place] [address] BUN/Creatinine Ratio 14.3 ratio Normal 10.0-22.0 [facility] ([place] Comment on above: Performed By: #### DANDRE RENEE CMP, [place] #### [address] [address] Calcium [Mass/Vol] 9.5 mg/dL Normal 8.7-10.4 [facility] ([place] Comment on above: Performed By: #### DANDRE RENEE, CMP, LD #### [address] [address] Chloride [Moles/Vol] 110 mmol/L Normal 98-110 [facility] ([place] Comment on above: Performed By: #### DANDRE RENEE CMP, [place] #### [address] [address] CO2 [Moles/Vol] 23 mmol/L Normal 22-32 [facility] ([place] Comment on above: Performed By: #### DANDRE RENEE, CMP, LD #### [place] [id number] Creatinine [Mass/Vol] 0.42 mg/dL Low 0.50-1.20 [facility] ([place] Comment on above: Performed By: #### DANDRE RENEE, ISABELLA, LD #### [address] [address] Electrolyte Balance 5.0 mEq/L Normal 4.0-15.0 [facility] ([place] Comment on above: Performed By: #### DANDRE RENEE, CMP, LD #### [address] [address] Globulin 3.1 G/dL Normal 1.5-3.8 [facility] ([place] Comment on above: Performed By: #### DANDRE RENEE, CMP, LD #### [address] [address] Glucose [Mass/Vol] 97 mg/dL Normal 70-110 [facility] ([place] Comment on above: Performed By: #### Moreno SCHMITT, DANDRE, CMP, LD #### [address] [address] Potassium [Moles/Vol] 4.4 mmol/L Normal 3.5-5.0 [facility] ([place] Comment on above: Result Comment: Spec imen slightly hemolyzed. Performed By: #### G FR, FMH, CMP, LD #### [address] [address] Sodium [Moles/Vol] 138 mmol/L Normal 136-145 [facility] ([place] Comment on above: Performed By: #### G FR, FMH, CMP, LD #### [address] [address] Total Protein 6.2 G/dL Normal 5.7-8.2 [facility] ([place] Comment on above: Result Comment: No te - New Reference Range in effect 20 Performed By: #### G FR, FMH, CMP, LD #### [address] [address] Urea nitrogen [Mass/Vol] 6.0 mg/dL Low 8.0-22.0 [facility] ([place] Comment on above: Performed By: #### G FR, FMH, CMP, LD #### [address] [address] LDHon 03-28-2022 LDH 247 U/L High 120-246 [facility] [place] Comment on above: Performed By: #### G FR, FMH, CMP, LD #### [address] [address] RPCURon 03-28-2022 U Creatinine 48.5 mg/dL Normal [facility] [place] Comment on above: Performed By: #### G FR, FMH, CMP, LD #### [address] [address] U Protein 10.3 mg/dL Normal [facility] [place] ([place] Comment on above: Performed By: #### G FR, FMH, CMP, LD #### [address] [address] U Ratio Prot/Creat 0.2 ratio Normal [facility] ([place]) Comment on above: Result Comment: resu lt calculated by rule GL_UR_PROT_NOTCALC_OLD (U Protein/U Creatinine) Performed By: #### Moreno SCHMITT, FMH, CMP, LD #### [address] [address] UAon 03-28-2022 Color (U) Yellow Normal [facility] [place] ([place]) Comment on above: Performed By: #### G , FMH, CMP, LD #### [place] [id number] Glucose (U) [Mass/Vol] Negative Normal Negative [facility] [place] ([place] Comment on above: Performed By: #### Moreno SCHMITT, FMH, CMP, LD #### [address] [address] Ketones Ql (U) Negative Normal Neg-Trace [facility] [place] ([place] Comment on above: Performed By: #### G , FMH, CMP, LD #### [place] [id number] UA Appear Hazy Abnormal Clear [facility] [place] ([place] Comment on above: Performed By: #### G , FMH, CMP, LD #### [address] [address] UA Blood Negative Normal Neg-Trace [facility] [place] ([place] Comment on above: Performed By: #### G FR, FMH, CMP, LD #### [address] [address] UA Leuk Est Moderate Abnormal Negative [facility] [place] ([place] Comment on above: Performed By: #### G FR, FMH, CMP, LD #### [address] [address] UA Nitrite Negative Normal Negative [facility] [place] ([place] Comment on above: Performed By: #### G FR, FMH, CMP, LD #### [address] [address] UA pH 7.0 Normal 5.0 - 8.0 [facility] [place] ([place] Comment on above: Performed By: #### G FR, FMH, CMP, LD #### [address] [address] UA Protein Negative Normal Negative [facility] [place] ([place] Comment on above: Performed By: #### DANDRE RENEE, CMP, LD #### [address] [address] UA Spec Grav 1.010 Normal 1.006-1.029 [facility] [place] ([place] Comment on above: Performed By: #### Moreno SCHMITT, DANDRE, CMP, LD #### [place] [address] UA Specimen Type Clean Catch Normal [facility] [place] ([place] Comment on above: Performed By: #### DANDRE RENEE, CMP, LD #### [address] [address] UA Urobilinogen 0.2 E.U./dL Normal 0.2-1.0 [facility] [place] ([place] Comment on above: Performed By: #### Moreno SCHMITT, DANDRE, CMP, LD #### [place] [address] Urobilinogen (U) [Mass/Vol] Negative Normal Neg-Trace [facility] [place] ([place] Comment on above: Performed By: #### Moreno SCHMITT, DANDRE, CMP, LD #### [address] [address] UAMICon 03-28-2022 UA Amorphus Trace Normal [facility] [place] ([place] Comment on above: Performed By: #### Moreno SCHMITT, DANDRE, CMP, LD #### [place] [id number] UA Bacteria Trace Abnormal Negative [facility] [place] ([place] Comment on above: Performed By: #### Moreno SCHMITT, FMDemetria, CMP, LD #### [address] [address] UA RBC Negative Normal 0-2 [facility] [place] ([place] Comment on above: Performed By: #### Moreno SCHMITT, FMDemetria, CMP, LD #### [place] [id number] UA Squam Epithelial 0-2 Normal 0-20 [facility] [place] ([place] Comment on above: Performed By: #### G FR, FMH, CMP, LD #### [address] [address] UA WBC 0-2 Normal 0-5 [facility] [place] ([place] Comment on above: Performed By: #### G FR, FMH, CMP, LD #### [address] [address] .Auto Diffon 03-19-2022 Basophil, Absolute 0.1 10 3/mcL Normal 0.0-0.3 [facility] ([place]) Comment on above: Performed By: #### M G #### [address] [address] Basophils/100 WBC (Bld) 0.7 % Normal 0.0-2.5 [facility] [place] ([place] Comment on above: Performed By: #### M G #### [address] [address] Eosinophil, Absolute 0.3 10 3/mcL Normal 0.0-0.7 [facility] [place] ([place] Comment on above: Performed By: #### M G #### [address] [address] Eosinophils/100 WBC (Bld) 2.6 % Normal 0.0-6.0 [facility] [place] ([place] Comment on above: Performed By: #### M G #### [address] [address] Lymphocyte, Absolute 2.0 10 3/mcL Normal 0.9-4.3 [facility] [place] ([place] Comment on above: Performed By: #### M G #### [address] [address] Lymphocytes/100 WBC (Bld) 18.0 % Low 20.0-40.0 [facility] [place] ([place] Comment on above: Performed By: #### M G #### [address] [address] Monocyte, Absolute 0.8 10 3/mcL Normal 0.1-1.4 [facility] ([place] Comment on above: Performed By: #### M G #### [address] [address] Monocytes/100 WBC (Bld) 7.7 % Normal 2.0-13.0 [facility] [place] ([place] Comment on above: Performed By: #### M G #### [address] [address] Neutrophils/100 WBC (Bld) 71.0 % Normal 50.0-75.0 [facility] [place] ([place] Comment on above: Performed By: #### M G #### [address] [address] .GFRon 03-19-2022 GFR Non- >60 Normal [facility] [place] ([place] Comment on above: Result Comment: GFR Population mean for , Non- Americans Ages 20-29 = 116 mL/min/1.73 sq.m. Ages 30-39 = 107 mL/min/1.73 sq.m. Ages 40-49 = 99 mL/min/1.73 sq.m. Ages 50-59 = 93 mL/min/1.73 sq.m. Ages 60-69 = 85 mL/min/1.73 sq.m. Ages 70+ = 75 mL/min/1.73 sq.m. Chronic Kidney Disease: Less than 60 mL/min/1.73 square meters End Stage Renal Disease: Less than 15 mL/min/1.73 square meters Performed By: #### G FR, FMH, CMP, LD #### [address] [address] GFR >60 Normal [facility] [place] ([place] Comment on above: Result Comment: GFR Population mean for , Non- Americans Ages 20-29 = 116 mL/min/1.73 sq.m. Ages 30-39 = 107 mL/min/1.73 sq.m. Ages 40-49 = 99 mL/min/1.73 sq.m. Ages 50-59 = 93 mL/min/1.73 sq.m. Ages 60-69 = 85 mL/min/1.73 sq.m. Ages 70+ = 75 mL/min/1.73 sq.m. Chronic Kidney Disease: Less than 60 mL/min/1.73 square meters End Stage Renal Disease: Less than 15 mL/min/1.73 square meters Performed By: #### G FR, FMH, CMP, LD #### [place] [address] .NEUABSon 03-19-2022 Neutrophil, Absolute 7.7 10 3/mcL Normal 2.3-8.1 [facility] [place] ([place] Comment on above: Performed By: #### M G #### [place] [address] CBCon 03-19-2022 Erythrocyte distribution width (RBC) [Ratio] 13.6 % Normal 11.5-15.5 [facility] [place] ([place] Comment on above: Performed By: #### Tatum G #### [place] [address] Hematocrit (Bld) [Volume fraction] 33.4 % Low 34.0-46.0 [facility] [place] ([place] Comment on above: Performed By: #### Tatum G #### [place] [address] Hgb 11.3 G/dL Low 12.0-16.0 [facility] [place] ([place] Comment on above: Performed By: #### M G #### [place] [address] MCH (RBC) [Entitic mass] 30.0 pg Normal 27.0-33.0 [facility] [place] ([place] Comment on above: Performed By: #### Tatum G #### [place] [address] MCHC 33.9 G/dL Normal 32.0-36.0 [facility] [place] ([place] Comment on above: Performed By: #### M G #### [place] [id number] MCV (RBC) [Entitic vol] 88.5 fL Normal 80.0-99.0 [facility] [place] ([place] Comment on above: Performed By: #### M G #### [place] [address] Platelet 339 10 3/mcL Normal 150-450 [facility] [place] ([place]) Comment on above: Performed By: #### M G #### [address] [address] Platelet mean volume (Bld) [Entitic vol] 7.0 fL Normal 6.6-10.5 [facility] [place] ([place] Comment on above: Performed By: #### M G #### [address] [address] RBC 3.78 10 6/mcL Low 4.10-5.30 [facility] [place] ([place] Comment on above: Performed By: #### M G #### [address] [address] WBC 10.9 10 3/mcL High 4.5-10.8 [facility] [place] ([place] Comment on above: Performed By: #### M G #### [place] [address] CMPon 03-19-2022 BUN/Creatinine Ratio Unable to Calculate Normal 10.0-22.0 [facility] [place] ([place] Comment on above: Result Comment: Unab le to calculate this test result accurately. Results used to calculate this test are outside the reportable range. Performed By: #### Moreno SCHMITT, FMDemetria, CMP, LD #### [place] [address] Urea nitrogen [Mass/Vol] mg/dL Low 8.0-22.0 [facility] [place] ([place] Comment on above: Performed By: #### Moreno SCHMITT, FMH, CMP, LD #### [place] [id number] Albumin Level 3.1 G/dL Low 3.2-4.8 [facility] [place] ([place] Comment on above: Performed By: #### Moreno SCHMITT, FMDemetria, CMP, LD #### [place] [id number] Albumin/Globulin [Mass ratio] 1.1 {ratio} Normal 0.9-1.6 [facility] [place] ([place]) Comment on above: Performed By: #### Moreno SCHMITT, FMDemetria, CMP, LD #### [facility] [address] [place], [place] [address] ALP [Catalytic activity/Vol] 100 U/L Normal 38-126 [facility] [place] ([place] Comment on above: Performed By: #### G FR, FMH, CMP, LD #### [address] [address] ALT [Catalytic activity/Vol] 9 U/L Low 10-49 [facility] [place] ([place] Comment on above: Performed By: #### G FR, FMH, CMP, LD #### [address] [address] AST [Catalytic activity/Vol] 13 U/L Normal 8-34 [facility] [place] ([place] Comment on above: Performed By: #### G FR, FMH, CMP, LD #### [address] [address] Bili Total 0.40 mg/dL Normal 0.20-1.20 [facility] [place] ([place] Comment on above: Result Comment: Use of this assay is not recommended for patients undergoing treatment with eltrombopag due to the potential for falsely elevated results. Performed By: #### G FR, FMH, CMP, LD #### [address] [address] Calcium [Mass/Vol] 9.3 mg/dL Normal 8.7-10.4 [facility] ([place]) Comment on above: Performed By: #### G FR, FMH, CMP, LD #### [address] [address] Chloride [Moles/Vol] 109 mmol/L Normal 98-110 [facility] [place] ([place]) Comment on above: Performed By: #### G FR, FMH, CMP, LD #### [address] [address] CO2 [Moles/Vol] 27 mmol/L Normal 22-32 [facility] [place] ([place] Comment on above: Performed By: #### G FR, FMH, CMP, LD #### [address] [address] Creatinine [Mass/Vol] 0.43 mg/dL Low 0.50-1.20 [facility] [place] ([place] Comment on above: Performed By: #### G FR, FMH, CMP, LD #### [address] [address] Electrolyte Balance 4.0 mEq/L Normal 4.0-15.0 [facility] [place] ([place] Comment on above: Performed By: #### G FR, FMH, CMP, LD #### [address] [address] Globulin 2.9 G/dL Normal 1.5-3.8 [facility] [place] ([place] Comment on above: Performed By: #### G FR, FMH, CMP, LD #### [address] [address] Glucose [Mass/Vol] 80 mg/dL Normal 70-110 [facility] ([place] Comment on above: Performed By: #### G FR, FMH, CMP, LD #### [address] [address] Potassium [Moles/Vol] 3.7 mmol/L Normal 3.5-5.0 [facility] [place] ([place] Comment on above: Performed By: #### G FR, FMH, CMP, LD #### [address] [address] Sodium [Moles/Vol] 140 mmol/L Normal 136-145 [facility] ([place] Comment on above: Performed By: #### G FR, FMH, CMP, LD #### [address] [address] Total Protein 6.0 G/dL Normal 5.7-8.2 [facility] [place] ([place] Comment on above: Result Comment: No te - New Reference Range in effect 20 Performed By: #### G FR, FMH, CMP, LD #### [address] [address] LDHon 03-19-2022 LDH 189 U/L Normal 120-246 [facility] [place] ([place] Comment on above: Performed By: #### M G #### [address] [address] RPCURon 03-19-2022 U Creatinine 21.3 mg/dL Normal [facility] [place] ([place] Comment on above: Performed By: #### Moreno SCHMITT, FMDemetria, CMP, LD #### [place] [address] U Protein <6.0 Normal [facility] [place] ([place] Comment on above: Performed By: #### Moreno SCHMITT, FMH, CMP, LD #### [place] [address] U Ratio Prot/Creat Unable to Calculate Normal [facility] [place] ([place] Comment on above: Result Comment: Unab le to calculate this test result accurately. Results used to calculate this test are outside the reportable range. result calculated by rule GL_UR_PROT_NOTCALC_OLD (U Protein/U Creatinine) Performed By: #### Moreno SCHMITT, FMDemetria, CMP, LD #### [place] [address] UAon 03-19-2022 Color (U) Colorless Normal [facility] [place] ([place] Comment on above: Performed By: #### Moreno SCHMITT, FMDemetria, CMP, LD #### [place] [address] Glucose (U) [Mass/Vol] Negative Normal Negative [facility] [place] ([place] Comment on above: Performed By: #### Moreno SCHMITT, FMDemetria, CMP, LD #### [place] [id number] Ketones Ql (U) Negative Normal Neg-Trace [facility] [place] ([place] Comment on above: Performed By: #### G , FMH, CMP, LD #### [address] [address] UA Appear Clear Normal Clear [facility] [place] ([place] Comment on above: Performed By: #### G , FMH, CMP, LD #### [address] [address] UA Blood Negative Normal Neg-Trace [facility] [place] ([place] Comment on above: Performed By: #### G , FMH, CMP, LD #### [address] [address] UA Leuk Est Large Abnormal Negative [facility] [place] ([place] Comment on above: Performed By: #### G FR, FMH, CMP, LD #### [address] [address] UA Nitrite Negative Normal Negative [facility] [place] ([place] Comment on above: Performed By: #### G FR, FMH, CMP, LD #### [address] [address] UA pH 7.5 Normal 5.0 - 8.0 [facility] [place] ([place] Comment on above: Performed By: #### G FR, FMH, CMP, LD #### [address] [address] UA Protein Negative Normal Negative [facility] [place] ([place] Comment on above: Performed By: #### G FR, FMH, CMP, LD #### [address] [address] UA Spec Grav <=1.005 Abnormal 1.006-1.029 [facility] [place] [facility] ([place] Comment on above: Performed By: #### G FR, FMH, CMP, LD #### [address] [address] UA Specimen Type Clean Catch Normal [facility] [place] ([place] Comment on above: Performed By: #### G FR, FMH, CMP, LD #### [address] [address] UA Urobilinogen 0.2 E.U./dL Normal 0.2-1.0 [facility] [place] ([place] Comment on above: Performed By: #### G FR, FMH, CMP, LD #### [address] [address] Urobilinogen (U) [Mass/Vol] Negative Normal Neg-Trace [facility] [place] ([place] Comment on above: Performed By: #### G FR, FMH, CMP, LD #### [address] [address] UAMICon 03-19-2022 UA Bacteria 1+ /hpf Abnormal Negative [facility] [place] ([place] Comment on above: Performed By: #### G FR, FMH, CMP, LD #### [address] [address] UA RBC Negative Normal 0-2 [facility] [place] ([place] Comment on above: Performed By: #### G FR, FMH, CMP, LD #### [address] [address] UA Squam Epithelial Negative Normal 0-20 [facility] [place] [facility] ([place] Comment on above: Performed By: #### G FR, FMH, CMP, LD #### [address] [address] UA WBC 3-5 Normal 0-5 [facility] [place] ([place] Comment on above: Performed By: #### G FR, FMH, CMP, LD #### [address] [address] GL1on 03-14-2022 Glucose [Mass/Vol] 146 mg/dL High 70-139 [facility] ([place] Comment on above: Performed By: #### G FR, FMH, CMP, LD #### [address] [address] GL2on 03-14-2022 Glucose [Mass/Vol] 130 mg/dL Normal [facility] ([place] Comment on above: Performed By: #### G FR, FMH, CMP, LD #### [address] [address] GL3on 03-14-2022 Glucose [Mass/Vol] 63 mg/dL Normal [facility] ([place] Comment on above: Performed By: #### G FR, FMH, CMP, LD #### [address] [address] GLFon 03-14-2022 Glucose [Mass/Vol] 91 mg/dL Normal 70-110 [facility] ([place] Comment on above: Performed By: #### G FR, FMH, CMP, LD #### [address] [address] RPRon 03-13-2022 Reagin Ab RPR Ql (S) Non-Reactive Normal Non-Reactive [facility] [place] ([place]) Comment on above: Result Comment: The RPR test is a non-treponemal assay useful as an aid in the diagnosis of primary and secondary syphilis. It converts to positive generally within 2 weeks after the appearance of a lesion. This test is also useful for monitoring response to antibiotic therapy. A positive RPR screening test will be followed by the FTA ABS test. False positive RPR tests may occur in 1) patients with underlying autoimmune disorders, 2) elderly patients, 3) , and 4) other conditions with abnormal serum globulins. Performed By: #### G FR, [facility], CMP, LD #### [address] [address] RUBISon 03-13-[address] Positive Normal Positive [facility] [place] ([place] Comment on above: Result Comment: This immune status assay detects IgM and/or IgG antibody to Rubella. Interpret results in conjunction with clinical history. POS: Antibody detected; exposure at undetermined recent or distant time. If clinically indicated, order Rubella IGM to rule out recent infection. NEG: No antibody detected. Performed By: #### G , [facility], [facility], [place] #### [address] [address] VARISon 03-13-[address] Negative Normal [facility] [place] ([place] Comment on above: Result Comment: INTE RPRETATION OF VARICELLA IMMUNE STATUS IgG BY EIA: Negative: No detectable VZV IgG antibody. Positive: VZV IgG antibody Detected. If clinically indicated, order Varicella IgM to rule out recent infection. Equivocal: Equivocal for antibodies to VZV. Suggest repeat testing in 10-14 days. Performed By: #### G FR, [facility], CMP, LD #### [address] [address] .Auto Diffon 03-12-2022 Basophil, Absolute 0.0 10 3/mcL Normal 0.0-0.3 [facility] ([place] Comment on above: Performed By: #### G FR, [facility], [facility], [place] #### [address] [address] Basophils/100 WBC (Bld) 0.0 % Normal 0.0-2.5 [facility] [place] ([place] Comment on above: Performed By: #### G FR, FMH, CMP, LD #### [address] [address] Eosinophil, Absolute 0.0 10 3/mcL Normal 0.0-0.7 [facility] [place] ([place] Comment on above: Performed By: #### G FR, FMH, CMP, LD #### [address] [address] Eosinophils/100 WBC (Bld) 0.0 % Normal 0.0-6.0 [facility] [place] ([place] Comment on above: Performed By: #### G FR, FMH, CMP, LD #### [address] [address] Lymphocyte, Absolute 1.1 10 3/mcL Normal 0.9-4.3 [facility] [place] ([place] Comment on above: Performed By: #### G FR, FMH, CMP, LD #### [address] [address] Lymphocytes/100 WBC (Bld) 8.1 % Low 20.0-40.0 [facility] [place] ([place] Comment on above: Performed By: #### G FR, FMH, CMP, LD #### [address] [address] Monocyte, Absolute 0.7 10 3/mcL Normal 0.1-1.4 [facility] ([place] Comment on above: Performed By: #### G FR, FMH, CMP, LD #### [address] [address] Monocytes/100 WBC (Bld) 5.2 % Normal 2.0-13.0 [facility] [place] ([place] Comment on above: Performed By: #### G FR, FMH, CMP, LD #### [address] [address] Neutrophils/100 WBC (Bld) 86.7 % High 50.0-75.0 [facility] [place] ([place] Comment on above: Performed By: #### G FR, FMH, CMP, LD #### [address] [address] .NEUABSon 03-12-2022 Neutrophil, Absolute 11.6 10 3/mcL High 2.3-8.1 [facility] [place] [facility] ([place] Comment on above: Performed By: #### G FR, FMH, CMP, LD #### [place] [address] CBCon 03-12-2022 Erythrocyte distribution width (RBC) [Ratio] 13.3 % Normal 11.5-15.5 [facility] [place] ([place] Comment on above: Performed By: #### G FR, FMH, CMP, LD #### [place] [address] Hematocrit (Bld) [Volume fraction] 33.8 % Low 34.0-46.0 [facility] [place] ([place] Comment on above: Performed By: #### G FR, FMH, CMP, LD #### [place] [address] Hgb 11.4 G/dL Low 12.0-16.0 [facility] [place] ([place] Comment on above: Performed By: #### G FR, FMH, CMP, LD #### [place] [address] MCH (RBC) [Entitic mass] 30.2 pg Normal 27.0-33.0 [facility] [place] [facility] ([place] Comment on above: Performed By: #### G FR, FMH, CMP, LD #### [place] [address] MCHC 33.8 G/dL Normal 32.0-36.0 [facility] [place] [facility] ([place] Comment on above: Performed By: #### G FR, FMH, CMP, LD #### [place] [address] MCV (RBC) [Entitic vol] 89.5 fL Normal 80.0-99.0 [facility] [place] ([place] Comment on above: Performed By: #### G FR, FMH, CMP, LD #### [place] [address] Platelet 315 10 3/mcL Normal 150-450 [facility] [place] ([place] Comment on above: Performed By: #### Moreno SCHMITT, DANDRE, [place]ABELL[place], [place] #### [place] [address] Platelet mean volume (Bld) [Entitic vol] 7.8 fL Normal 6.6-10.5 [facility] [place] ([place] Comment on above: Performed By: #### Moreno SCHMITT, DANDRE, [place], [place] #### [place] [address] RBC 3.78 10 6/mcL Low 4.10-5.30 [facility] [place] ([place] Comment on above: Performed By: #### Moreno SCHMITT, DANDRE, [place], [place] #### [place] [address] WBC 13.4 10 3/mcL High 4.5-10.8 [facility] [place] ([place] Comment on above: Performed By: #### Moreno SCHMITT, Demetria, [place], [place] #### [place] [address] CTPCRon 03-12-2022 C. trachomatis Interp Normal See CT Interp N [facility] [place] [facility] ([place] Comment on above: Result Comment: C. t rachomatis DNA not detected. Specimen is presumptive negative for C. trachomatis. A negative result does not preclude C. trachomatis infection because results depend on adequate specimen collection, absence of inhibitors, and sufficient DNA to be detected. See CT Interp N Performed By: #### Moreno SCHMITT, DANDRE, [place], [place] #### [place] [address] C.trachomatis PCR Negative Normal Negative [facility] [place] ([place] Comment on above: Result Comment: Nancy oliva (PCR) assay performed on the [employer] 4800 system. Performed By: #### DANDRE RENEE, [place], [place] #### [place] [id number] Chlam Source Cervix Normal [facility] [place] [facility] ([place] Comment on above: Performed By: #### Moreno SCHMITT, DANDRE, [place], [place] #### [place] [address] GBSPCRon 03-12-2022 Group B Strep (PCR) Positive Abnormal Negative [facility] [place] [facility] ([place] Comment on above: Result Comment: Note s [id number] Performed By: #### G , DANDRE, [place], [place] #### [place] [address] Group B Strep PCR Int Normal [facility] [place] [facility] ([place] Comment on above: Result Comment: Grou p B Streptococcus DNA detected by Real- Time Polymerase Chain Reaction (PCR). Organism viability cannot be determined since DNA may persist in the absent of viable organisms. As with all PCR based in vitro tests, extremely low levels of targe below the limit of detection of the assay may be detected, but results may not be reproducible. Sensitivity testing is not available with this method. See Below Performed By: #### Moreno SCHMITT, DANDRE, [place], [place] #### [place] [address] HBSAGon 03-12-2022 Hep B Surf Ag Non-Reactive Normal Non-Reactive [facility] [place] [facility] [place] Comment on above: Performed By: #### DANDRE RENEE, [place], [place] #### [place] [address] HCVon 03-12-2022 Hep C Ab Non-Reactive Normal Non-Reactive [facility] [place] [facility] ([place] Comment on above: Performed By: #### DANDRE RENEE, [place], [place] #### [place] [address] Hep C Ab Int Normal [facility] [place] [facility] ([place] Comment on above: Result Comment: Nonr eactive: Samples with a value < 0.80 are considered nonreactive (negative) for antibodies to HCV. A negative test result does not exclude the possibility of exposure to or infection with HCV. HCV antibodies may be undetectable in some stages of the infection and in some clinical conditions. See Interp Performed By: #### Moreno SCHMITT, DANDRE, [place]ABELL[place], [place] #### [place] [address] HIVon 03-12-2022 HIV 1/2 Ab Normal Non-Reactive [facility] ([place]) Comment on above: Result Comment: Non- Reactive Specimen is negative for anti-HIV-1 and anti-HIV-2. Performed By: #### G FR, FMH, CMP, LD #### [place] [address] LABORATORYOrdered By: SYSTEM SYSTEM on 03-12-2022 Basophils (Bld) [#/Vol] 0.0 103/mcL Invalid Interpretation Code 0.0 - 0.3 10^3/mcL AH Workflow SS Basophils/100 WBC (Bld) 0.0 % Invalid Interpretation Code 0.0 - 2.5 % AH Workflow SS Eosinophils (Bld) [#/Vol] 0.0 103/mcL Invalid Interpretation Code 0.0 - 0.7 10^3/mcL AH Workflow SS Eosinophils/100 WBC (Bld) 0.0 % Invalid Interpretation Code 0.0 - 6.0 % AH Workflow SS Erythrocyte distribution width (RBC) [Ratio] 13.3 % Invalid Interpretation Code 11.5 - 15.5 % AH Workflow SS HBV surface Ag IA Ql Non-Reactive (03/12/22 5:36 AM) Invalid Interpretation Code Non-Reactive AH ADM SS Hematocrit (Bld) [Volume fraction] 33.8 % Invalid Interpretation Code 34.0 - 46.0 % AH Workflow SS Hemoglobin (Bld) [Mass/Vol] 11.4 G/dL Invalid Interpretation Code 12.0 - 16.0 G/dL AH Workflow SS Lymphocytes (Bld) [#/Vol] 1.1 103/mcL Invalid Interpretation Code 0.9 - 4.3 10^3/mcL AH Workflow SS Lymphocytes/100 WBC (Bld) 8.1 % Invalid Interpretation Code 20.0 - 40.0 % AH Workflow SS MCH (RBC) [Entitic mass] 30.2 pg Invalid Interpretation Code 27.0 - 33.0 pg AH Workflow SS MCHC 33.8 G/dL Invalid Interpretation Code 32.0 - 36.0 G/dL AH Workflow SS MCV (RBC) [Entitic vol] 89.5 fL Invalid Interpretation Code 80.0 - 99.0 fL AH Workflow SS Monocytes (Bld) [#/Vol] 0.7 103/mcL Invalid Interpretation Code 0.1 - 1.4 10^3/mcL AH Workflow SS Monocytes/100 WBC (Bld) 5.2 % Invalid Interpretation Code 2.0 - 13.0 % AH Workflow SS Neutrophils (Bld) [#/Vol] 11.6 103/mcL Invalid Interpretation Code 2.3 - 8.1 10^3/mcL AH Workflow SS Neutrophils/100 WBC (Bld) 86.7 % Invalid Interpretation Code 50.0 - 75.0 % AH Workflow SS Platelet mean volume (Bld) [Entitic vol] 7.8 fL Invalid Interpretation Code 6.6 - 10.5 fL AH Workflow SS Platelets (Bld) [#/Vol] 315 103/mcL Invalid Interpretation Code 150 - 450 10^3/mcL AH Workflow SS RBC (Bld) [#/Vol] 3.78 106/mcL Invalid Interpretation Code 4.10 - 5.30 10^6/mcL AH Workflow SS WBC (Bld) [#/Vol] 13.4 103/mcL Invalid Interpretation Code 4.5 - 10.8 10^3/mcL AH Workflow SS LABORATORYOrdered By: Evelio Elliott on 03-12-2022 HCV Ab IA Ql Non-Reactive (03/12/22 5:36 AM) Invalid Interpretation Code Non-Reactive ADM SS HCV Ab IA Ql Nonreactive: Samples with a value < 0.80 are considered nonreactive (negative) for antibodies to HCV.A negative test result does not exclude the possibility of exposure to or infection with HCV. HCV antibodies may be undetectable in some stages of the infection and in some clinical conditions. Invalid Interpretation Code Chemistry S HIV 1+2 Ab IA Ql Negative Invalid Interpretation Code Chemistry S HIV 1/2 Ab Non-Reactive (03/12/22 5:36 AM) Invalid Interpretation Code Non-Reactive ADM SS [id number] 03-12-2022 GC PCR Source Vaginal Normal [facility] ([place]) Comment on above: Performed By: #### G , [facility], ISABELLA, [place] #### [address] [address] N. gonorrhoeae (PCR) Negative Normal Negative [facility] ([place]) Comment on above: Result Comment: Mole cular (PCR) assay performed on the [id number] System. Performed By: #### G , [facility], CMP, LD #### [address] [address] N. gonorrhoeae Interp Normal [facility] ([place]) Comment on above: Result Comment: N. g onorrhoeae DNA not detected. Specimen is presumptive negative for N. gonorrhoeae. A negative result does not preclude Neisseria gonorrhoeae infection because results depend on adequate specimen collection, absence of inhibitors, and sufficient DNA to be detected. See NG Interp N Performed By: #### Moreno SCHMITT, [facility], CMP, LD #### [address] [address] .Auto Diffon 03-11-2022 Basophil, Absolute 0.0 10 3/mcL Normal 0.0-0.3 [facility] ([place]) Comment on above: Performed By: #### G FR, FMH, CMP, LD #### [address] [address] Basophils/100 WBC (Bld) 0.4 % Normal 0.0-2.5 [facility] ([place]) Comment on above: Performed By: #### G FR, FMH, CMP, LD #### [address] [address] Eosinophil, Absolute 0.2 10 3/mcL Normal 0.0-0.7 [facility] ([place]) Comment on above: Performed By: #### G FR, FMH, CMP, LD #### [address] [address] Eosinophils/100 WBC (Bld) 1.6 % Normal 0.0-6.0 [facility] ([place]) Comment on above: Performed By: #### G FR, FMH, CMP, LD #### [address] [address] Lymphocyte, Absolute 2.3 10 3/mcL Normal 0.9-4.3 [facility] ([place]) Comment on above: Performed By: #### G FR, FMH, CMP, LD #### [address] [address] Lymphocytes/100 WBC (Bld) 21.7 % Normal 20.0-40.0 [facility] ([place]) Comment on above: Performed By: #### G FR, FMH, CMP, LD #### [address] [address] Monocyte, Absolute 1.0 10 3/mcL Normal 0.1-1.4 [facility] ([place]) Comment on above: Performed By: #### G FR, FMH, CMP, LD #### [address] [address] Monocytes/100 WBC (Bld) 9.2 % Normal 2.0-13.0 [facility] ([place] Comment on above: Performed By: #### G FR, FMH, CMP, LD #### [address] [address] Neutrophils/100 WBC (Bld) 67.1 % Normal 50.0-75.0 [facility] ([place] Comment on above: Performed By: #### G FR, FMH, CMP, LD #### [address] [address] .GFRon 03-11-2022 GFR >60 Normal [facility] ([place] Comment on above: Result Comment: GFR Population mean for , Non- Americans Ages 20-29 = 116 mL/min/1.73 sq.m. Ages 30-39 = 107 mL/min/1.73 sq.m. Ages 40-49 = 99 mL/min/1.73 sq.m. Ages 50-59 = 93 mL/min/1.73 sq.m. Ages 60-69 = 85 mL/min/1.73 sq.m. Ages 70+ = 75 mL/min/1.73 sq.m. Chronic Kidney Disease: Less than 60 mL/min/1.73 square meters End Stage Renal Disease: Less than 15 mL/min/1.73 square meters Performed By: #### G FR, FMH, CMP, LD #### [address] [address] GFR Non- >60 Normal [facility] ([place] Comment on above: Result Comment: GFR Population mean for , Non- Americans Ages 20-29 = 116 mL/min/1.73 sq.m. Ages 30-39 = 107 mL/min/1.73 sq.m. Ages 40-49 = 99 mL/min/1.73 sq.m. Ages 50-59 = 93 mL/min/1.73 sq.m. Ages 60-69 = 85 mL/min/1.73 sq.m. Ages 70+ = 75 mL/min/1.73 sq.m. Chronic Kidney Disease: Less than 60 mL/min/1.73 square meters End Stage Renal Disease: Less than 15 mL/min/1.73 square meters Performed By: #### G FR, FMH, CMP, LD #### [place] [address] .NEUABSon 03-11-2022 Neutrophil, Absolute 7.0 10 3/mcL Normal 2.3-8.1 [facility] ([place] Comment on above: Performed By: #### Moreno SCHMTIT, FMH, CMP, LD #### [place] [address] ABIDon 03-11-2022 Antibody ID Passive Anti-D Invalid Interpretation Code [facility] ([place]) Comment on above: Order Comment: Order ed by Discern Expert Performed By: #### G , FMH, CMP, LD #### [place] [address] ABO/Rh (Gel)on 03-11-2022 ABO/Rh Interp Negative Invalid Interpretation Code [facility] ([place] Comment on above: Performed By: #### Moreno SCHMITT, FMH, CMP, LD #### [place] [address] ABS (Gel)on 03-11-2022 ABSC Interp (Gel) Positive Normal [facility] ([place] Comment on above: Performed By: #### G FR, FMH, CMP, LD #### [place] [address] AUTOCon 03-11-2022 Auto Control Negative Normal [facility] ([place] Comment on above: Order Comment: Order ed by Discern Expert Performed By: #### G , FMH, CMP, LD #### [place] [address] CBCon 03-11-2022 Erythrocyte distribution width (RBC) [Ratio] 13.3 % Normal 11.5-15.5 [facility] ([place] Comment on above: Performed By: #### G FR, FMH, CMP, LD #### [address] [address] Hematocrit (Bld) [Volume fraction] 35.1 % Normal 34.0-46.0 [facility] ([place] Comment on above: Performed By: #### G FR, FMH, CMP, LD #### [place] [address] Hgb 11.9 G/dL Low 12.0-16.0 [facility] ([place] Comment on above: Performed By: #### G FR, FMH, CMP, LD #### [address] [address] MCH (RBC) [Entitic mass] 29.8 pg Normal 27.0-33.0 [facility] ([place] Comment on above: Performed By: #### G FR, FMH, CMP, LD #### [place] [address] MCHC 33.8 G/dL Normal 32.0-36.0 [facility] ([place] Comment on above: Performed By: #### G FR, FMH, CMP, LD #### [place] [address] MCV (RBC) [Entitic vol] 88.3 fL Normal 80.0-99.0 [facility] ([place] Comment on above: Performed By: #### G FR, FMH, CMP, LD #### [place] [address] Platelet 306 10 3/mcL Normal 150-450 [facility] ([place] Comment on above: Performed By: #### G FR, FMH, CMP, LD #### [place] [address] Platelet mean volume (Bld) [Entitic vol] 7.8 fL Normal 6.6-10.5 [facility] ([place] Comment on above: Performed By: #### G FR, FMH, CMP, LD #### [place] [id number] RBC 3.98 10 6/mcL Low 4.10-5.30 [facility] ([place] Comment on above: Performed By: #### G FR, FMH, CMP, LD #### [address] [address] WBC 10.4 10 3/mcL Normal 4.5-10.8 [facility] ([place] Comment on above: Performed By: #### G FR, FMH, CMP, LD #### [address] [address] CMPon 03-11-2022 Albumin Level 3.0 G/dL Low 3.2-4.8 [facility] ([place] Comment on above: Performed By: #### G FR, FMH, CMP, LD #### [address] [address] Albumin/Globulin [Mass ratio] 1.1 {ratio} Normal 0.9-1.6 [facility] ([place] Comment on above: Performed By: #### G FR, FMH, CMP, LD #### [address] [address] ALP [Catalytic activity/Vol] 93 U/L Normal 38-126 [facility] ([place] Comment on above: Performed By: #### G FR, FMH, CMP, LD #### [address] [address] ALT [Catalytic activity/Vol] 9 U/L Low 10-49 [facility] ([place] Comment on above: Performed By: #### G FR, FMH, CMP, LD #### [place] [id number] AST [Catalytic activity/Vol] 17 U/L Normal 8-34 [facility] ([place] Comment on above: Performed By: #### G FR, FMH, CMP, LD #### [place] [id number] Bili Total 0.30 mg/dL Normal 0.20-1.20 [facility] ([place] Comment on above: Result Comment: Use of this assay is not recommended for patients undergoing treatment with eltrombopag due to the potential for falsely elevated results. Performed By: #### G FR, FMH, CMP, LD #### [address] [address] Calcium [Mass/Vol] 9.3 mg/dL Normal 8.7-10.4 [facility] ([place]) Comment on above: Performed By: #### Moreno SCHMITT, FMH, CMP, LD #### [address] [address] Chloride [Moles/Vol] 110 mmol/L Normal 98-110 [facility] ([place] Comment on above: Performed By: #### Moreno SCHMITT, FMH, CMP, LD #### [address] [address] CO2 [Moles/Vol] 25 mmol/L Normal 22-32 [facility] ([place] Comment on above: Performed By: #### Moreno SCHMITT, FMH, CMP, LD #### [address] [address] Creatinine [Mass/Vol] 0.44 mg/dL Low 0.50-1.20 [facility] ([place] Comment on above: Performed By: #### Moreno SCHMITT, FMH, CMP, LD #### [address] [address] Electrolyte Balance 9.0 mEq/L Normal 4.0-15.0 [facility] ([place] Comment on above: Performed By: #### Moreno SCHMITT, FMH, CMP, LD #### [address] [address] Globulin 2.8 G/dL Normal 1.5-3.8 [facility] ([place] Comment on above: Performed By: #### G , [facility], CMP, LD #### [address] [address] Glucose [Mass/Vol] 74 mg/dL Normal 70-110 [facility] ([place]) Comment on above: Performed By: #### G , [facility], CMP, LD #### [address] [address] Potassium [Moles/Vol] 3.5 mmol/L Normal 3.5-5.0 [facility] ([place] Comment on above: Performed By: #### Moreno SCHMITT, FMDemetria, [place]ABELLA, [place] #### [place] [id number] [address] [place] [address] Sodium [Moles/Vol] 144 mmol/L Normal 136-145 [facility] ([place]) Comment on above: Performed By: #### Moreno SCHMITT, DANDRE, [place], [place] #### [address] [address] Total Protein 5.8 G/dL Normal 5.7-8.2 [facility] ([place] Comment on above: Result Comment: No te - New Reference Range in effect 20 Performed By: #### G , DANDRE, [place], [place] #### [address] [address] Urea nitrogen [Mass/Vol] mg/dL Low 8.0-22.0 [facility] ([place] Comment on above: Performed By: #### Moreno SCHMITT Demetria, [place], [place] #### [address] [address] Urea nitrogen/Creatinin e [Mass ratio] mg/mg Normal 10.0-22.0 [facility] ([place] Comment on above: Performed By: #### Moreno SCHMITT, Demetria, [place], [place] #### [address] [address] DATIGGon 03-11-2022 UBALDO IgG Interp (Gel) Negative Normal [facility] ([place] Comment on above: Order Comment: Order ed by Discern Performed By: #### DANDRE RENEE, [place]ABE[place], [place] #### [address] [address] LABORATORYOrdered By: Corbin Desai on 03-11-2022 Appearance (U) Clear (03/11/22 2:59 PM) Invalid Interpretation Code Clear AH Auto Urine SS Bacteria LM.HPF (Urine sed) [#/Area] Trace /HPF Invalid Interpretation Code Negative/HPF AH Auto Urine SS Bilirubin Ql (U) Negative (03/11/22 2:59 PM) Invalid Interpretation Code Neg-Trace AH Auto Urine SS Color (U) Yellow (03/11/22 2:59 PM) Invalid Interpretation Code AH Auto Urine SS Glucose Test strip (U) [Mass/Vol] Negative Invalid Interpretation Code Negativemg/d L AH Auto Urine SS Hemoglobin Auto test strip (U) [Mass/Vol] Negative (03/11/22 2:59 PM) Invalid Interpretation Code Neg-Trace AH Auto Urine SS Ketones Ql (U) Negative Invalid Interpretation Code Neg-Tracemg/ dL AH Auto Urine SS UA Leuk Est Small *ABN* (03/11/22 2:59 PM) Invalid Interpretation Code Negative AH Auto Urine SS UA Mucous Trace /HPF Invalid Interpretation Code AH Auto Urine SS UA Nitrite Negative (03/11/22 2:59 PM) Invalid Interpretation Code Negative AH Auto Urine SS UA pH 7.5 (03/11/22 2:59 PM) Invalid Interpretation Code 5.0 - 8.0 AH Auto Urine SS UA Protein Negative Invalid Interpretation Code Negativemg/d L AH Auto Urine SS UA RBC 0-2 /HPF Invalid Interpretation Code 0-2/HPF AH Auto Urine SS UA Spec Grav 1.010 (03/11/22 2:59 PM) Invalid Interpretation Code 1.006-1.029 AH Auto Urine SS UA Specimen Type Clean Catch (03/11/22 2:59 PM) Invalid Interpretation Code AH Auto Urine SS UA Squam Epithelial 0-2 /HPF Invalid Interpretation Code 0-20/HPF AH Auto Urine SS UA Urobilinogen 0.2 E.U./dL Invalid Interpretation Code 0.2-1.0E.U./ dL AH Auto Urine SS WBC LM.HPF (Urine sed) [#/Area] 0-2 /HPF Invalid Interpretation Code 0-5/HPF AH Auto Urine SS Yeast LM.HPF (Urine sed) [#/Area] Trace /HPF Invalid Interpretation Code AH Auto Urine SS LABORATORYOrdered By: Mamadou Lund on 03-11-2022 Creatinine (U) [Mass/Vol] 116.7 mg/dL Invalid Interpretation Code AH ADM SS Protein (U) [Mass/Vol] 27.7 mg/dL Invalid Interpretation Code AH ADM SS U Ratio Prot/Creat 0.2 ratio Invalid Interpretation Code AH ADM SS LABORATORYOrdered By: Elizabeth Wang on 03-11-2022 N. gonorrhoeae DNA BONIFACIO+probe Ql (Unsp spec) Negative (03/11/22 2:59 PM) Invalid Interpretation Code Negative AH Auto Viro/Sero SS N. gonorrhoeae DNA BONIFACIO+probe Ql (Unsp spec) N. gonorrhoeae DNA not detected. Specimen is presumptive negative forN. gonorrhoeae. A negative result does not preclude Neisseria gonorrhoeaeinfection because results depend on adequate specimen collection, absenceof inhibitors, and sufficient DNA to be detected. Invalid Interpretation Code Auto Viro/Sero SS Specimen source Nom (Unsp spec) Vaginal (03/11/22 2:59 PM) Invalid Interpretation Code AH Auto Viro/Sero SS C. trachomatis DNA BONIFACIO+probe Ql (Unsp spec) Negative (03/11/22 2:51 PM) Invalid Interpretation Code Negative AH Auto Viro/Sero SS C. trachomatis DNA BONIFACIO+probe Ql (Unsp spec) C. trachomatis DNA not detected. Specimen is presumptive negative forC. trachomatis.A negative result does not preclude C. trachomatis infection becauseresults depend on adequate specimen collection, absence of inhibitors,and sufficient DNA to be detected. Invalid Interpretation Code See CT Interp N Auto Viro/Sero SS Specimen source Nom (Unsp spec) Cervix (03/11/22 2:51 PM) Invalid Interpretation Code Auto Viro/Sero SS LABORATORYOrdered By: German Combs on 03-11-2022 S. agalactiae DNA BONIFACIO+probe Ql (Unsp spec) Positive 1 *ABN* (03/11/22 2:59 PM) Invalid Interpretation Code Negative AH Auto Viro/Sero SS Comment on above: Result Comment: [place] [id number] S. agalactiae DNA BONIFACIO+probe Ql (Vag+Rectum) Group B Streptococcus DNA detected by Real-Time Polymerase Chain Reaction (PCR). Organism viability cannot be determined since DNA may persist in the absent of viable organisms. As with all PCR based in vitro tests, extremely low levels of targe below the limit of detection of the assay may be detected, but results may not be reproducible. Sensitivity testing is not available with this method. Invalid Interpretation Code Auto Viro/Sero SS LABORATORYOrdered By: Hillary Granado on 03-11-2022 ABO and Rh group Nom (Bld) Blood group B Rh(D) negative Invalid Interpretation Code BB Auto SS Blood group antibody screen Ql POS (03/11/22 2:45 PM) Invalid Interpretation Code BB Auto SS LABORATORYOrdered By: SYSTEM SYSTEM on 03-11-2022 Albumin BCP dye [Mass/Vol] 3.0 G/dL Invalid Interpretation Code 3.2 - 4.8 G/dL ADM SS Albumin/Globulin [Mass ratio] 1.1 {ratio} Invalid Interpretation Code 0.9 - 1.6 ratio ADM SS ALP [Catalytic activity/Vol] 93 U/L Invalid Interpretation Code 38 - 126 U/L ADM SS ALT No additional P-5'-P [Catalytic activity/Vol] 9 U/L Invalid Interpretation Code 10 - 49 U/L ADM SS AST [Catalytic activity/Vol] 17 U/L Invalid Interpretation Code 8 - 34 U/L ADM SS Basophils (Bld) [#/Vol] 0.0 103/mcL Invalid Interpretation Code 0.0 - 0.3 10^3/mcL Workflow SS Basophils/100 WBC (Bld) 0.4 % Invalid Interpretation Code 0.0 - 2.5 % Workflow SS Bilirubin [Mass/Vol] 0.30 mg/dL Invalid Interpretation Code 0.20 - 1.20 mg/dL ADM SS Calcium [Mass/Vol] 9.3 mg/dL Invalid Interpretation Code 8.7 - 10.4 mg/dL ADM SS Chloride [Moles/Vol] 110 mmol/L Invalid Interpretation Code 98 - 110 mEq/L ADM SS CO2 [Moles/Vol] 25 mmol/L Invalid Interpretation Code 22 - 32 mEq/L ADM SS Creatinine [Mass/Vol] 0.44 mg/dL Invalid Interpretation Code 0.50 - 1.20 mg/dL ADM SS Electrolyte Balance 9.0 mEq/L Invalid Interpretation Code 4.0 - 15.0 mEq/L ADM SS Eosinophils (Bld) [#/Vol] 0.2 103/mcL Invalid Interpretation Code 0.0 - 0.7 10^3/mcL Workflow SS Eosinophils/100 WBC (Bld) 1.6 % Invalid Interpretation Code 0.0 - 6.0 % Workflow SS Erythrocyte distribution width (RBC) [Ratio] 13.3 % Invalid Interpretation Code 11.5 - 15.5 % Workflow SS GFR/1.73 sq M.predicted among blacks MDRD (S/P/Bld) [Vol rate/Area] ml/min/1.73sqm Invalid Interpretation Code Chemistry S GFR/1.73 sq M.predicted among non-blacks MDRD (S/P/Bld) [Vol rate/Area] ml/min/1.73sqm Invalid Interpretation Code Chemistry S Globulin 2.8 G/dL Invalid Interpretation Code 1.5 - 3.8 G/dL ADM SS Glucose [Mass/Vol] 74 mg/dL Invalid Interpretation Code 70 - 110 mg/dL ADM SS Hematocrit (Bld) [Volume fraction] 35.1 % Invalid Interpretation Code 34.0 - 46.0 % Workflow SS Hemoglobin (Bld) [Mass/Vol] 11.9 G/dL Invalid Interpretation Code 12.0 - 16.0 G/dL Workflow SS LDH Lactate to pyruvate reaction [Catalytic activity/Vol] 186 1 Invalid Interpretation Code 120 - 246 U/L ADM SS Lymphocytes (Bld) [#/Vol] 2.3 103/mcL Invalid Interpretation Code 0.9 - 4.3 10^3/mcL Workflow SS Lymphocytes/100 WBC (Bld) 21.7 % Invalid Interpretation Code 20.0 - 40.0 % Workflow SS MCH (RBC) [Entitic mass] 29.8 pg Invalid Interpretation Code 27.0 - 33.0 pg Workflow SS MCHC 33.8 G/dL Invalid Interpretation Code 32.0 - 36.0 G/dL Workflow SS MCV (RBC) [Entitic vol] 88.3 fL Invalid Interpretation Code 80.0 - 99.0 fL Workflow SS Monocytes (Bld) [#/Vol] 1.0 103/mcL Invalid Interpretation Code 0.1 - 1.4 10^3/mcL Workflow SS Monocytes/100 WBC (Bld) 9.2 % Invalid Interpretation Code 2.0 - 13.0 % Workflow SS Neutrophils (Bld) [#/Vol] 7.0 103/mcL Invalid Interpretation Code 2.3 - 8.1 10^3/mcL Workflow SS Neutrophils/100 WBC (Bld) 67.1 % Invalid Interpretation Code 50.0 - 75.0 % Workflow SS Platelet mean volume (Bld) [Entitic vol] 7.8 fL Invalid Interpretation Code 6.6 - 10.5 fL Workflow SS Platelets (Bld) [#/Vol] 306 103/mcL Invalid Interpretation Code 150 - 450 10^3/mcL Workflow SS Potassium [Moles/Vol] 3.5 mmol/L Invalid Interpretation Code 3.5 - 5.0 mEq/L AH ADM SS Protein [Mass/Vol] 5.8 G/dL Invalid Interpretation Code 5.7 - 8.2 G/dL AH ADM SS RBC (Bld) [#/Vol] 3.98 106/mcL Invalid Interpretation Code 4.10 - 5.30 10^6/mcL AH Workflow SS Sodium [Moles/Vol] 144 mmol/L Invalid Interpretation Code 136 - 145 mEq/L AH ADM SS Urea nitrogen [Mass/Vol] mg/dL Invalid Interpretation Code 8.0 - 22.0 mg/dL AH ADM SS Urea nitrogen/Creatinin e [Mass ratio] ratio Invalid Interpretation Code 10.0 - 22.0 ratio AH ADM SS WBC (Bld) [#/Vol] 10.4 103/mcL Invalid Interpretation Code 4.5 - 10.8 10^3/mcL AH Workflow SS LABORATORYOrdered By: Samra Garcia on 03-11-2022 Direct antiglobulin test.IgG specific reagent Ql (RBC) NEG (03/11/22 2:45 PM) Invalid Interpretation Code BB Auto SS Indirect antiglobulin test.IgG specific reagent Ql Negative (03/11/22 2:45 PM) Invalid Interpretation Code BB Manual SS Passive Anti-D Invalid Interpretation Code BB Manual SS LDHon 03-11-2022 LDH 186 U/L Normal 120-246 [facility] ([place] Comment on above: Performed By: #### Moreno SCHMITT, [facility], CMP, LD #### [facility] [address] [place] [address] No Panel Informationon 03-11 Culture Urine No growth to date [facility] Work Phone: RPCURon 03-11-2022 U Creatinine 116.7 mg/dL Normal [facility] ([place] Comment on above: Performed By: #### G , [facility], CMP, LD #### [facility] [address] [place] [address] U Protein 27.7 mg/dL Normal [facility] ([place] Comment on above: Performed By: #### G FR, [facility], CMP, LD #### [facility] [address] [place] [address] U Ratio Prot/Creat 0.2 ratio Normal [facility] ([place]) Comment on above: Result Comment: resu lt calculated by rule [id number] (U Protein/U Creatinine) Performed By: #### G , [facility], CMP, LD #### [address] [address] UAon 03-11-2022 Color (U) Yellow Normal [facility] ([place] Comment on above: Performed By: #### G FR, [facility], CMP, LD #### [address] [address] Glucose (U) [Mass/Vol] Negative Normal Negative [facility] ([place] Comment on above: Performed By: #### G FR, [facility], CMP, LD #### [address] [address] Ketones Ql (U) Negative Normal Neg-Trace [facility] ([place] Comment on above: Performed By: #### G FR, [facility], CMP, LD #### [address] [address] UA Appear Clear Normal Clear [facility] ([place] Comment on above: Performed By: #### G FR, [facility], CMP, LD #### [address] [address] UA Blood Negative Normal Neg-Trace [facility] ([place] Comment on above: Performed By: #### G FR, [facility], CMP, LD #### [address] [address] UA Leuk Est Small Abnormal Negative [facility] ([place] Comment on above: Performed By: #### G FR, [facility], CMP, LD #### [address] [address] UA Nitrite Negative Normal Negative [facility] ([place] Comment on above: Performed By: #### G FR, [facility], CMP, LD #### [address] [address] UA pH 7.5 Normal 5.0 - 8.0 [facility] ([place] Comment on above: Performed By: #### G FR, FMH, CMP, LD #### [address] [address] UA Protein Negative Normal Negative [facility] ([place] Comment on above: Performed By: #### Moreno SCHMITT, FMH, CMP, LD #### [address] [address] UA Spec Grav 1.010 Normal 1.006-1.029 [facility] ([place] Comment on above: Performed By: #### G FR, FMH, CMP, LD #### [address] [address] UA Specimen Type Clean Catch Normal [facility] ([place] Comment on above: Performed By: #### G , FMH, CMP, LD #### [place] [address] UA Urobilinogen 0.2 E.U./dL Normal 0.2-1.0 [facility] ([place] Comment on above: Performed By: #### Moreno SCHMITT, FMH, CMP, LD #### [place] [address] Urobilinogen (U) [Mass/Vol] Negative Normal Neg-Trace [facility] ([place] Comment on above: Performed By: #### G FR, FMH, CMP, LD #### [address] [address] UAMICon 03-11-2022 UA Bacteria Trace Abnormal Negative [facility] ([place] Comment on above: Performed By: #### G FR, FMH, CMP, LD #### [address] [address] UA Mucous Trace Normal [facility] ([place] Comment on above: Performed By: #### G FR, FMH, CMP, LD #### [address] [address] UA RBC 0-2 Normal 0-2 [facility] ([place] Comment on above: Performed By: #### G FR, FMH, CMP, LD #### [place] [address] UA Squam Epithelial 0-2 Normal 0-20 [facility] ([place] Comment on above: Performed By: #### G FR, FM, CMP, LD #### [address] [address] UA WBC 0-2 Normal 0-5 [facility] ([place] Comment on above: Performed By: #### G FR, FMH, CMP, LD #### [address] [address] UA Yeast Trace Abnormal [facility] ([place] Comment on above: Performed By: #### G FR, FM, CMP, LD #### [address] [address] RPRon 03-05-2022 Reagin Ab RPR Ql (S) Non-Reactive Normal Non-Reactive [facility] ([place] Comment on above: Result Comment: The RPR test is a non-treponemal assay useful as an aid in the diagnosis of primary and secondary syphilis. It converts to positive generally within 2 weeks after the appearance of a lesion. This test is also useful for monitoring response to antibiotic therapy. A positive RPR screening test will be followed by the FTA ABS test. False positive RPR tests may occur in 1) patients with underlying autoimmune disorders, 2) elderly patients, 3) , and 4) other conditions with abnormal serum globulins. Performed By: #### M G ####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 that were given to you today.UNLESS THE ER DOCTOR GIVES YOU OTHER INSTRUCTIONS, YOU MUSTSEE YOUR FOLLOW-UP DOCTOR FOR RECHECK WITHIN2 TO 3 DAYSYOU MUST RETURN TO THE ER RIGHT AWAY FOR ANY OF THEFOLLOWING:New or increasing fever or chillsIncreasingcough, shortness of breath or wheezingIncreasingretraction s (especially seen in children)New orincreasing chest pain or pressureNew or increasing swellingin the arms or legs New or increasingproblems with coughing up bloodNew or increasingvomitingNew or increasing weakness or confusion [facility] PATIENT NAME: LALITHA GARCIA [facility] [address] MEDICAL REC #: [id number], [place] [address] DEPARTMENT CHART EMERGENCY DEPARTMENT PHYSICIANBronchitis affects the larger air tubes in the lungs and isusually caused by a virus infection.Bronchitis often occurs with colds and can last 1-2 weeks,even with treatment. Smokers will getbronchitis more often than non-smokers and in smokers itwill last even longer, sometimes 3-4 weeks.Asthma (also called Reactive Airway Disease) produces atemporary narrowing of the lung tubes and mayalso be caused by virus infections, as well as allergies orchanges in the weather. Asthma attacks are aproblem that happen again and again, though children willsometimes outgrow their asthma.Asthma and acute bronchitis do not usually cause permanentlung damage but sometimes occur together,which is a problem called asthmatic bronchitis. This ismore common in smokers.All of these problems can cause cough, wheezing, shortnessof breath, fever or retractions (when the skinbetween the ribs gets pulled in and out while breathing).Depending on your problem, the doctor may treatyou with antibiotics (but not for viral infections, whichare the most common cause), inhalers, aerosols,steroids or other medications. Xvmp-xnl-holzuns coughmedications may also help you feel better. All ofthese problems are made much worse with smoking and youmust avoid all tobacco products. You must use allof your regular medications plus all the medications thatwere given to you today.UNLESS THE ER DOCTOR GIVES YOU OTHER INSTRUCTIONS, YOU MUSTSEE YOUR FOLLOW-UP DOCTOR FOR RECHECK WITHIN2 TO 3 DAYS:YOU MUST RETURN TO THE ER RIGHT AWAY FOR ANY OF THEFOLLOWING:New or increasing fever or chillsIncreasingcough, shortness of breath or wheezingIncreasingretraction s (especially seen in children)New orincreasing chest pain or pressureNew or increasing swellingin the arms or legsNew or increasing problemswith coughing up bloodPhlegm that looks more green-yellowor smells bad [facility] PATIENT NAME: LALITHA GARCIA [facility] [address] MEDICAL REC #: [id number], [place] [address] DEPARTMENT CHART EMERGENCY DEPARTMENT PHYSICIANASTHMA ACTION PLAN: If you have been diagnosed with asthma,the following asthma plan should be reviewedwith your follow-up doctor. It will help you to bettermanage your asthma.Your GREEN ZONE is 80 - 100% of your personal best peakflow. Your breathing is good with no cough,wheeze or chest tightness during work, school, exercise oractivities of daily living. Continue to takethe medications as prescribed to you today.Your YELLOW ZONE is 50 - 80% of your personal best peakflow. Your asthma symptoms are present. This mayinclude cough, wheeze, shortness of breath, chest tightnessand/or waking at night. Take 2 additionalpuffs every 20 minutes for up to one hour on your quickrelief inhaler or an additional nebulizertreatment with your quick relief medicine. If yoursymptoms/peak flows return to the GREEN ZONE, takeyour medicine as prescribed. If your symptoms/peak flows donot return to the GREEN ZONE after one hourof treatment, then call your doctor or return to the ER.Your RED ZONE is less than 50% of your personal best peakflow. You are very short of breath or yourquick relief medicines have not helped or you cannot doyour usual activities. You must call your doctoror return to the ER.The following primary care physicians may be acceptingpatients with Medicaid or no insurance:Dr Erick Avina601 [facility], [id number] Dr Randa Balesn4[address] [facility] [place], [id number] Dr Moses Perez33[address] [facility] ([address])[place] [address] Dr Nikhil Vegattler[address] [place] [address] [facility] PATIENT NAME: LALITHA GARCIA [facility] MEDICAL REC #: [id number], [place] [address] DEPARTMENT CHART EMERGENCY DEPARTMENT [facility] , Address: [address] [place] [address], Please call the above number to schedule a follow-upappointment.Neha Resnick [facility], Address: [address] [place] [id number], , fax: Please call the above number to schedule a follow-upappointment.2-3 daysMEDICATIONSWe have given you these prescriptions that you must filland start taking:Zithromax 250 mg tablet, count:6, Dose = 1, count:6, 5days, count:6, daily, count:6, Number of Refills = 0,count:6prednisone 20 mg tablet, count:10, Dose = 1, count:10, 5days, count:10,2 times a day, count:10albuterol 90 mcg/actuation aerosol inhaler, count:1, Dose=2 puffs, count:1,7 days, count:1,q4-6 hrs as needed,count:1, Number of Refills = 0, count:1My signature below indicates that I have received andunderstand the oral instructions regarding mymedical problem. I also acknowledge receipt of this writteninstruction sheet including a list of majortests and procedures ordered during my visit. I willarrange for follow-up care as indicated by theseinstructions and referrals.This signed original will be kept in my medical record.Your signature below indicates consent for Case Managementto contact [facility] providers in [facility] to meet your ongoing healthcare needs. This willallow forcontinuity of care once you leave theEmergency Department. This exchange of informationwill [facility] PATIENT NAME: LALITHA GARCIA [address] [facility] MEDICAL REC #: [id number], [place] [address] DEPARTMENT CHART EMERGENCY DEPARTMENT PHYSICIANinclude, but not be limited to, disclosure of yourpatient information and possible release of records. :FlexChartDataEvent Time: 04/24/2017 01:55 DEM OGRAPHICS =Emergisoft Patient: LALITHA GARCIASex: FDOB: 1995Age: 21 yrAccount No: [id number]: [id number] Date: 00:58 04/24/2017Address: [address] [place] [address] DUJ ISTRATION =ED Number: [id number]: Marital Status: SFinancial Class: CAIDHMO T RIAGE Brenda ority: 3 - UrgentComplaint: Cough and CongestionStated Complaint: Cough and Congestion, wheezing x 3weeksArrival Date: 04/24/2017 00:58Triage Date: 04/24/2017 00:58Mode of Arrival: *Privately Owned VehicleWC: NLanguage: EnglishTransport: Ambulatory/Walk In BED=== A01 In: 04/24/2017 01:02:16 04/24/201701:02:16 VDPA [facility] PATIENT NAME: LALITHA GARCIA M[address] [facility] [address] [facility] MEDICAL REC #: [id number], [place] [address] DEPARTMENT CHART EMERGENCY DEPARTMENT [id number] (Removed From) Out: 04/24/2017 02:38:26106/24/2016 02:38:26 BSF PROVI DERS LAURA Gary Provider Contact: 04/24/201701:03:13 JRSachad:TOMMIE MCKEE Provider Contact: 04/24/201701:04:58 GRACIELAnd:MD Katerin Howe Provider Contact: 04/24/201701:07:07 Gio:TOMMIE CASON Provider Contact: 04/24/201702:16:02 BSFEnd: T RIAGE HISTORY A LLERGIESAllergic To: No Known Allergies - 04/24/2017 01:02VDPACURRENT MEDSName: None 04/24/2017 01:02 VDPAILLNESSIllness: Other Medical adhd 04/24/2017 01:02 VDPAPAST SURGERY HISTSurgery: Tandamp;A -age- 1104/24/2017 01:02 VDPAPAST SOCIAL HISTSocial History: Behavior age appropriate 04/24/201701:02 VDPASocial History: Communicates without fzyquqjbdv28/02/2017 01:02 VDPA [facility] PATIENT NAME: LALITHA GARCIA [facility] [address] [facility] MEDICAL REC #: [id number], [place] [address] DEPARTMENT CHART EMERGENCY DEPARTMENT PHYSICIANSocial History: Alcohol - None 04/24/2017 01:02 VDPASocial History: Recreational Drugs - Gjvhevcest28/02/2017 01:02 VDPASocial History: Smoker- 1/3 PPD 04/24/2017 01:02VDPASocial History: foster child 04/24/2017 01:02 VDPAIMMUNIZATIONSImmunizatio n: Flu Vaccine-no 04/24/2017 01:02 VDPA [facility] ASSESSMENT ==Respiratory Treatment : Respiratory Therapy TreatmentEvent Time: 04/24/2017 01:30 EJPTherapy:Aerosol: Xopenex 1.25mgPre Treatment Auscultation:diminshed: diffusePre Treatment Vital Signs:Note:HR 120RR `8Small Volume Nebulizer Treatment:SVN given with mouthpiecePost Treatment Auscultation:diminshed: diffusePost Treatment Vital Signs:Note:HR 120RR 18Cough Effect:strongSputum Amount:none ===ASSESSMENT NOTES 07/2016 01:15 PT C/O COUGH AND CONGESTION ANDWHEEZING WHEN SHE COUGHS. LUNGS CTA. PT A+OX4. RESP EVENAND EASY, NON LABORED. SKIN WARM AND DRY. CALL LIGHT WITHINREACH. 04/24/2017 01:17 KKO106/24/2016 02:15 report received from Casandra Mckee RN04/24/2017 02:15 BSF [facility] NAME: LALITHA GARCIA [address] [facility] REC #: [id number], [place] [address] DEPARTMENT CHART EMERGENCY DEPARTMENT GQOCKJPPR71/02/2017 01:17 Primary DOC Guide - A. 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 Fall RiskAssessment (Age andlt;65) 04/24/2017 01:17 KKOFall Risk Score 1-2 Points = Low Risk. 3-4 Points =Moderate Risk. 5 or more points = High Risk. 0Fall Score Greater andgt;= 3? No04/24/2017 01:17 Primary DOC Guide - D. PsychosocialAssessment 04/24/2017 01:17 KKOOver the Last 2 weeks, how often have you had littleinterest or pleasure in doing things (0) Not at AllIs Psychosocial Assessment Score 3 or more? If score is3 or more please consult ED Navigator! NoTotal Psychosocial Assessment Score 0Over the last 2 weeks, how often have you been feelingdown, depressed or hopeless (0) Not at All04/24/2017 01:17 Primary DOC Guide - E. Family ViolenceAssessment 04/24/2017 01:17 KKOWithin the past year, has anyone ever pushed, shoved,slapped, choked, hit, punched or kicked you: NoWithin the past year, has anyone ever pressured orforced you to have sexual activities when you did not wantto: NoDo you feel safe and well cared for: YesIs there a partner from a previous or currentrelationship that is making you feel unsafe now: NoFamily Violence Clinical Observation All Negative Mbtuqo5504/24/2017 01:17 Staff/ Patient Interaction - Calllight placed within reach. 04/24/2017 01:17 KKO106/24/2016 01:17 Staff/ Patient Interaction - [facility] PATIENT NAME: LALITHA GARCIA [address] [facility] [address] [facility] MEDICAL REC #: [id number], [place] [address] DEPARTMENT CHART EMERGENCY DEPARTMENT PHYSICIANIntroduced self and assessed patients needs. 04/24/201701:17 KKO106/24/2016 02:16 Hourly Rounding - Rounding 04/24/201702:16 BSFElimination/Toileting NPosition Comfortable YSafe Environment YFall Risk Change N MEDICAT IONS IV IV Fluid: B 04/24/2017 01:29 04/24/2017 01:30KKOLine #: 1 Rate: ml/hr Location: antecubitalfossa rightNdl Gauge: 20 # Attempts: 1Notes: FLUSHES WELL. NO REDNESS OR EDEMA NOTED. LABSOBTAINED FROM SITE.IV Fluid: S 04/24/2017 01:30 04/24/2017 02:38KKOLine #: 1 Fluid: 0.9% NS 1000cc bagRate: ml/hr Location: antecubital fossa rightNdl Gauge: 20 # Attempts: 1Amt: 700IV Fluid: D 04/24/2017 02:37 04/24/2017 02:38BSFLine #: 1 Fluid: 0.9% NS 1000cc bagRate: ml/hr Location: antecubital fossa rightNdl Gauge: 20 # Attempts: 1IV Fluid: E 04/24/2017 02:37 04/24/2017 02:38BSFLine #: 1 Rate: ml/hr Location: antecubitalfossa rightNdl Gauge: 20 # Attempts: 1Notes: catheter intact. dressing applied. *[facility] PATIENT NAME: LALITHA GARCIA [address] [facility] MEDICAL REC #: [id number], [place] [address] DEPARTMENT CHART EMERGENCY DEPARTMENT PHYSICIANI AND O VITALS========= VS-ROUTINE Time: 04/24/2017 00:58B/P: 164/72 - Right Upper Arm - Sitting - MachinePulse: 137 - Monitor Resp: 18Sa02: 98 Room Air Temp: 98.60 F - Oral04/24/2017 01:02 VDPAVS-Pain Time: 04/24/2017 00:58 Pain Level: 10106/24/2016 01:02 VDPAVS-GCS Time: 04/24/2017 00:58 Visual: 4 Verbal: 5 Motor:6 GCS Total: 15 04/24/2017 01:02 VDPAVS-HT/WT Time: 04/24/2017 00:58 Ht: 172.7 cm StatedWeight: 111.1 kg Stated 04/24/2017 01:02 VDPAVS-Visual Time: 04/24/2017 00:58 04/24/2017 01:02 VDPAVS-FHT Time: 04/24/2017 00:58 04/24/2017 01:02VDPAVS-Notes Time: 04/24/2017 00:58 map 103 04/24/201701:02 VDPAVS-ROUTINE Time: 04/24/2017 01:18 Pulse: 128 - MonitorResp: 16Sa02: 100 Room Air 04/24/2017 01:18 KKOVS-Pain Time: 04/24/2017 01:18 04/24/2017 01:18KKOVS-GCS Time: 04/24/2017 01:18 04/24/2017 01:18 KKOVS-HT/WT Time: 04/24/2017 01:18 04/24/2017 01:18 KKOVS-Visual Time: 04/24/2017 01:18 04/24/2017 01:18 KKOVS-FHT Time: 04/24/2017 01:18 04/24/2017 01:18KKOVS-Notes Time: 04/24/2017 01:18 CHRIS REYES, AWARE OF HR.04/24/2017 01:18 KKOVS-ROUTINE Time: 04/24/2017 02:22 Pulse: 116 - OjnvfkrHb15: 98 Room Air 04/24/2017 02:27 SNCVS-Pain Time: 04/24/2017 02:22 04/24/2017 02:27SNCVS-GCS Time: 04/24/2017 02:22 04/24/2017 02:27 SNCVS-HT/WT Time: 04/24/2017 02:22 04/24/2017 02:27 SNCVS-Visual Time: 04/24/2017 02:22 04/24/2017 02:27 SNCVS-FHT Time: 04/24/2017 02:22 04/24/2017 02:27SNCVS-Notes Time: 04/24/2017 02:22 04/24/2017 02:27 SNC [facility] PATIENT NAME: LALITHA GARCIA [id number] [facility] [address] MEDICAL REC #: [id number], [place] [address] DEPARTMENT CHART EMERGENCY DEPARTMENT PHYSICIANVS-ROUTINE Time: 04/24/2017 02:37B/P: 131/86 - Left Upper Arm - Lying - Machine Pulse:107 - Monitor Resp: 20Sa02: 99 Room Air 04/24/2017 02:37 BSFVS-Pain Time: 04/24/2017 02:37 Pain Level: 02:37 BSFVS-GCS Time: 04/24/2017 02:37 Visual: 4 Verbal: 5 Motor:6 GCS Total: 15 04/24/2017 02:37 BSFVS-HT/WT Time: 04/24/2017 02:37 04/24/2017 02:37 BSFVS-Visual Time: 04/24/2017 02:37 04/24/2017 02:37 BSFVS-FHT Time: 04/24/2017 02:37 04/24/2017 02:37BSFVS-Notes Time: 04/24/2017 02:37 MAP 104 04/24/201702:37 BSF ORDER S Dischar ge patient 04/24/2017 02:25N/AOrdered: 04/24/2017 02:12 By . OtherReviewed: 04/24/2017 02:25 By . Other*Other Nurse: recheck vitals after yhqrzp2104/24/2017 02:27N/AOrdered: 04/24/2017 01:40 By Mike GaryCompleted Time: 04/24/2017 02:27 By Mike Talleyed Time: 04/24/2017 01:41 KKOXopenex 1.25mg x 1 04/24/2017 01:33N/AOrdered: 04/24/2017 01:18 By Mike GaryCompleted Time: 04/24/2017 01:33 By Mike GaryIV NS bolus 1L over 30 min 04/24/2017 01:29N/AOrdered: 04/24/2017 01:16 By Mike GaryCompleted Time: 04/24/2017 01:29 By Mike Ennis Time: 04/24/2017 01:17 KKOCBC with diff 04/24/2017 01:52N/AOrdered: 04/24/2017 01:16 By Mike GaryCompleted Time: 04/24/2017 01:52 By Mike Ennis Time: 04/24/2017 01:29 KKO [facility] PATIENT NAME: [facility]ARC[facility] MEDICAL REC #: [id number], [place] [address] DEPARTMENT CHART EMERGENCY DEPARTMENT PHYSICIANResults Time: 04/24/2017 01:52Lactic Acid Blood (POC) 04/24/2017 01:33N/AOrdered: 04/24/2017 01:16 By Mike GaryCompleted Time: 04/24/2017 01:33 By Mike GaryNoted Time: 04/24/2017 01:29 KKOResults Time: 04/24/2017 01:32CXR PA and lateral 04/24/2017 02:04N/AOrdered: 04/24/2017 01:16 By Mike GaryCompleted Time: 04/24/2017 02:04 By Mike GaryIndication: Cough and CongestionQuestion: Are you or think you might be ?Answer: NOQuestion: How is patient transported? (A = Ambulatory, B =Bed, C = Carry, CR = Crib, P = Portable, S = Stretcher, W =Wheelchair, X = Wide Wheelchair, XT = Trauma X RM17 (EDOnly))Answer: STRETCHERPregnancy (serum) 04/24/2017 01:59N/AOrdered: 04/24/2017 01:16 By Mike GaryCompleted Time: 04/24/2017 01:59 By Mike GaryNoted Time: 04/24/2017 01:29 KKOResults Time: 04/24/2017 01:59 DIS CHARGE Di agnosis: acute bronchitis with early right sidedpneumonia 04/24/2017 02:22Disposition: Time: 04/24/2017 02:12Discharge Time: 04/24/2017 02:38Type: DischargeCondition: Stable for admission/discharge/transfer after emergency evaluation/treatment Category: *NOTAPPLICABLEReferral: 04/24/2017 02:22Admit Physician: . Other PRE SCRIPTIONS == [facility] PATIENT NAME: LALITHA GARCIA [facility]ettit MEDICAL REC #: [id number], [place] [address] DEPARTMENT CHART EMERGENCY DEPARTMENT PHYSICIANZithromax 250 mg tablet 04/24/2017 02:12SI qd for 5 daysDispense: 6 / Refills:prednisone 20 mg tablet 04/24/2017 02:12SI bid for 5 daysDispense: 10 / Refills:albuterol 90 mcg/actuation aerosol inhaler 04/24/2017 02:12SI pu q4-6 hrs as needed wheezing/cough for 7 daysDispense: 1 / Refills: CHARGES 0 .9% NS 1000cc bag QTY @ 1 04/24/2017 01:30 KKOAuto Generated Charge SI GNATURE Edward [facility]O [facility] MARIA DE JESUS BUSHGJoelizabeth MCKEE RN KKO [facility] PATIENT NAME: LALITHA GARCIA [facility]it MEDICAL REC #: [id number], [place] [address] DEPARTMENT CHART EMERGENCY DEPARTMENT PHYSICIAN Normal [facility] ED Documentation This is a preliminar y report only, as the practitioner review and authentication has not occurred. Normal [facility] Rodessa HCGon 04-24-2017 HCG Qn Negative Normal NEGATIVE [facility] Comment on above: Order Comment: Campu s: M Performed By: #### L [phone] ####[facility] [id number] [place], [place] [address]Tb# [phone] LACTATE BLOODon 04-24-2017 LACTATE BLOOD 1.37 MMOL/L Normal 0.40-2.00 [facility] Comment on above: Order Comment: Campu s: M Performed By: #### L [phone] ####[facility] [id number] [place], [place] [address]In# [phone] Vital Signs Date Time Vital Sign Value Performing Clinician Facility 12-08-2024 10:48-0400 Body height 172.7 cm Alber Wolff MD Work Phone: [facility] Comment on above: per pt 12-08-2024 10:48-0400 Body mass index (BMI) [Ratio] 60.57 kg/m2 Alber Wolff MD Work Phone: [facility] 12-08-2024 10:48-0400 Body temperature 98.71 [degF] Alber Wolff MD Work Phone: [facility] 12-08-2024 10:48-0400 Body weight 180.7 kg Alber Wolff MD Work Phone: [facility] 12-08-2024 10:48-0400 Diastolic blood pressure 99 mm[Hg] Alber Wolff MD Work Phone: [facility] 12-08-2024 10:48-0400 Heart rate 116 /min Alber Wolff MD Work Phone: [facility] 12-08-2024 10:48-0400 Systolic blood pressure 147 mm[Hg] Alber Wolff MD Work Phone: [facility] 11-02-2024 11:42-0400 Body mass index (BMI) [Ratio] 57.32 kg/m2 Shahnaz Marin MD Work Phone: [facility] 11-02-2024 11:42-0400 Body weight 171.01 kg Shahnaz Marin MD Work Phone: [facility] 11-02-2024 11:42-0400 Diastolic blood pressure 72 mm[Hg] Shahnaz Marin MD Work Phone: [facility] 11-02-2024 11:42-0400 Systolic blood pressure 130 mm[Hg] Shahnaz Marin MD Work Phone: [facility] 07-09-2024 14:04-0500 Body height 172.7 cm Josey Rush MOLDED CANDLES WICKER.CNM Work Phone: [facility] 07-09-2024 14:04-0500 Body mass index (BMI) [Ratio] 56.71 kg/m2 Josey Rush MOLDED CANDLES WICKER.CNM Work Phone: [facility] 07-09-2024 14:04-0500 Body weight 169.19 kg Josey Rush MOLDED CANDLES WICKER.CNM Work Phone: [facility] 07-09-2024 14:04-0500 Diastolic blood pressure 78 mm[Hg] Josey Rush MOLDED CANDLES WICKER.CNM Work Phone: [facility] 07-09-2024 14:04-0500 Systolic blood pressure 128 mm[Hg] Josey Rush MOLDED CANDLES WICKER.CNM Work Phone: [facility] 05-14-2024 09:49-0500 Body height 175 cm Rin Morgan MD Work Phone: [facility] 05-14-2024 09:49-0500 Body mass index (BMI) [Ratio] 53.17 kg/m2 Rin Morgan MD Work Phone: [facility] 05-14-2024 09:49-0500 Body weight 162.84 kg Rin Morgan MD Work Phone: [facility] 09-23-2022 20:16-0400 Diastolic Blood Pressure Non-Invasive 86 1 NAE PRESCOTTESKA DO [facility] 09-23-2022 20:16-0400 Heart rate 78 /min NAE DURESKA DO [facility] 09-23-2022 20:16-0400 Respiratory rate 18 /min NAE KENYONESKA DO [facility] 09-23-2022 20:16-0400 Systolic Blood Pressure Non-Invasive 132 1 NAE PRESCOTTESKA DO [facility] 09-23-2022 17:40-0400 Diastolic Blood Pressure Non-Invasive 88 1 NAE PRESCOTTESKA DO [facility] 09-23-2022 17:40-0400 Heart rate 79 /min NAE PRESCOTTESKA DO [facility] 09-23-2022 17:40-0400 Respiratory rate 18 /min NAE PRESCOTTESKA DO [facility] 09-23-2022 17:40-0400 Systolic Blood Pressure Non-Invasive 140 1 NAE PRESCOTTESKA DO [facility] 09-23-2022 15:34-0400 Body weight 135.5 kg NAE PRESCOTTESKA DO [facility] 09-23-2022 15:34-0400 Diastolic Blood Pressure Non-Invasive 82 1 NAE DURESKA DO [facility] 09-23-2022 15:34-0400 Heart rate 125 /min NAE KENYONESKA DO [facility] 09-23-2022 15:34-0400 Respiratory rate 18 /min NAE DURESKA DO [facility] 09-23-2022 15:34-0400 Systolic Blood Pressure Non-Invasive 143 1 NAE DURESKA DO [facility] 03-12-2022 12:02-0400 Body temperature 98.06 [degF] KATERIN ELAM MD [facility] 03-12-2022 12:02-0400 Diastolic blood pressure 69 mm[Hg] KATERIN ELAM MD [facility] 03-12-2022 12:02-0400 Heart rate 99 /min KATERIN ELAM MD [facility] 03-12-2022 12:02-0400 Mean blood pressure 95 mm[Hg] KATERIN ELAM MD [facility] 03-12-2022 12:02-0400 Respiratory rate 18 /min KATERIN ELAM MD [facility] 03-12-2022 12:02-0400 Systolic blood pressure 148 mm[Hg] KATERIN ELAM MD [facility] 03-12-2022 07:27-0400 Body temperature 98.42 [degF] KATERIN ELAM MD [facility] 03-12-2022 07:27-0400 Diastolic blood pressure 90 mm[Hg] KATERIN ELAM MD [facility] 03-12-2022 07:27-0400 Heart rate 92 /min KATERIN ELAM MD [facility] 03-12-2022 07:27-0400 Mean blood pressure 107 mm[Hg] KATERIN ELAM MD [facility] 03-12-2022 07:27-0400 Respiratory rate 18 /min KATERIN ELAM MD [facility] 03-12-2022 07:27-0400 Systolic blood pressure 141 mm[Hg] KATERIN ELAM MD [facility] 03-12-2022 03:21-0400 Body temperature 98.6 [degF] KATERIN ELAM MD [facility] 03-12-2022 03:21-0400 Diastolic blood pressure 74 mm[Hg] KATERIN ELAM MD [facility] 03-12-2022 03:21-0400 Heart rate 91 /min KATERIN ELAM MD [facility] 03-12-2022 03:21-0400 Mean blood pressure 94 mm[Hg] KATERIN ELAM MD [facility] 03-12-2022 03:21-0400 Respiratory rate 18 /min KATREIN ELAM MD [facility] 03-12-2022 03:21-0400 Systolic blood pressure 133 mm[Hg] KATERIN ELAM MD [facility] 03-11-2022 17:52-0400 Body height 172.7 cm KATERIN ELAM MD [facility] 03-11-2022 17:52-0400 Body weight 131.8 kg KATERIN ELAM MD [facility] 03-11-2022 17:52-0400 Body weight 44.19 kg/m2 KATERIN ELAM MD [facility] 03-11-2022 13:43-0400 Body height 172.7 cm KATERIN ELAM MD [facility] 03-11-2022 13:43-0400 Body weight 131.8 kg KATERIN ELAM MD [facility] 03-11-2022 13:43-0400 Body weight 44.19 kg/m2 KATERIN ELAM MD [facility] Encounters Encounter Date Encounter Type Care Provider Facility Start: 12-08-2024 End: 12-08-2024 ambulatory ALBER WOLFF Facility:[facility] Start: 12-08-2024 End: 12-08-2024 Office outpatient new 45 minutes Alber Wolff MD Work Phone: Neurology Headache [facility] Comment on above: Intractable migraine without aura and without status migrainosus (Primary Dx); DARWIN (obstructive sleep apnea) Start: 11-16-2024 End: 11-17-2024 Emergency department patient visit BRIT PAUL Facility:[facility] Start: 11-16-2024 End: 11-16-2024 ambulatory Wendie Francois RN NURSE CHARGING CRANE OPERATOR Comment on above: Leg Pain Start: 11-02-2024 End: 11-02-2024 Patient encounter procedure Shahnaz Marin MD Work Phone: OB/Gynecology Comment on above: Encounter for IUD in sertion (Primary Dx) Start: 11-02-2024 End: 11-02-2024 ambulatory SHAHNAZ MARNI Facility:[facility] Start: 10-21-2024 End: 10-21-2024 Telephone encounter Hemanth Luna MD Work Phone: OB/Gynecology Comment on above: Abnormal uterine ble eding; IUD Start: 10-08-2024 End: 10-08-2024 Telemedicine consultation with patient Shahnaz Marin MD Work Phone: OB/Gynecology Start: 10-08-2024 End: 10-08-2024 ambulatory Shahnaz Marin MD Work Phone: OB/Gynecology Comment on above: Abnormal uterine ble eding (AUB) (Primary Dx) Start: 10-08-2024 End: 10-08-2024 Emergency department patient visit Facility:[facility] Start: 09-21-2024 End: 09-21-2024 Admission to same day surgery center [facility] Provider General Surgery Start: 09-21-2024 End: 09-21-2024 E-mail encounter from caregiver [facility] Provider General Surgery Start: 09-20-2024 End: 11-20-2024 Follow-up encounter Rin Morgan MD Work Phone: General Surgery Start: 09-16-2024 End: 09-21-2024 Admission to same day surgery center Rin Morgan MD Work Phone: General Surgery Comment on above: Medicine update Start: 09-16-2024 End: 09-21-2024 ambulatory Rin Morgan MD Work Phone: General Surgery Start: 09-15-2024 End: 09-15-2024 ambulatory RIN MORGAN Facility:[facility] Start: 09-11-2024 End: 09-11-2024 Emergency department patient visit Facility:[facility] Start: 09-09-2024 End: 09-09-2024 Emergency department patient visit BRIT PAUL Facility:[facility] Start: 09-09-2024 End: 09-09-2024 ambulatory Kena Cross RN 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 CRANE OPERATOR Comment on above: Headache Start: 09-07-2024 End: 09-07-2024 ambulatory RIN MORGAN Facility:[facility] Start: 09-07-2024 End: 09-07-2024 Office outpatient visit 40 minutes Rin Morgan MD Work Phone: General Surgery Comment on above: Class 3 severe obesi ty with body mass index (BMI) of 50.0 to 59.9 in adult, unspecified obesity type, unspecified whether serious comorbidity present (HCC) (Primary Dx) Start: 09-02-2024 End: 09-02-2024 ambulatory RIN MORGAN Facility:[facility] Start: 07-15-2024 End: 07-15-2024 Patient encounter procedure Us Tech 1 [employer] OB/Gynecology Start: 07-15-2024 End: 07-15-2024 ambulatory Piping Supervisor [employer] Work Phone: OB/Gynecology Start: 07-09-2024 End: 07-27-2024 ambulatory Josey Rush APRN.CNM Work Phone: OB/Gynecology Comment on above: Ultrasounds Start: 07-09-2024 End: 07-27-2024 E-mail encounter from caregiver Josey Rush APRN.CNM Work Phone: OB/Gynecology Start: 07-09-2024 End: 07-09-2024 Patient encounter procedure Josey Rush APRN.CNM Work Phone: OB/Gynecology Comment on above: Ovarian cyst, right (Primary Dx); Abnormal uterine bleeding (AUB) Start: 05-31-2024 ambulatory Sara Santa Facility :[facility] Start: 05-14-2024 End: 05-14-2024 ambulatory RIN MORGAN Facility:[facility] Start: 05-14-2024 End: 05-14-2024 Office outpatient new 60 minutes Rin Morgan MD Work Phone: General Surgery Comment on above: Class 3 severe obesi ty with body mass index (BMI) of 50.0 to 59.9 in adult, unspecified obesity type, unspecified whether serious comorbidity present (HCC) (Primary Dx) Start: 05-07-2024 End: 05-07-2024 Admission to same day surgery center Gwen Zhang PhD Work Phone: General Surgery BMI PSYL Comment on above: Psychological factor s affecting medical condition (Primary Dx); Obesity, unspecified class, unspecified obesity type, unspecified whether serious comorbidity present Start: 05-07-2024 End: 05-07-2024 ambulatory GWEN ZHANG Facility:[facility] Start: 05-07-2024 End: 05-07-2024 Telemedicine consultation with patient Gwen Vicente PhD Work Phone: General Surgery BMI PSYL Start: 04-30-2024 ambulatory GWEN VICENTE Facili ty:[facility] Start: 04-30-2024 End: 04-30-2024 Admission to same day surgery center Gwen Zhang PhD Work Phone: General Surgery BMI PSYL Comment on above: NO SHOW (Primary Dx) Start: 04-30-2024 End: 04-30-2024 Telemedicine consultation with patient Gwenrohit Almaraznoman PhD Work Phone: General Surgery BMI PSYL Start: 04-26-2024 ambulatory No Primary Car e Physician Facility:[facility] Start: 04-23-2024 End: 04-23-2024 ambulatory Alesha Aguilar Facility:[facility] Start: 03-10-2024 End: 03-10-2024 Emergency department patient visit No Primary Care Physician Facility:[facility] Start: 03-03-2024 End: 03-03-2024 ambulatory No Primary Care Physician Facility:[facility] Start: 03-03-2024 End: 03-03-2024 ambulatory No Primary Care Physician Facility:[facility] Start: 02-26-2024 End: 02-27-2024 Emergency department patient visit John Gonzalez Facility:[facility] Start: 12-27-2023 Emergency department patient visit Facility:[facility] Start: 09-23-2022 End: 09-23-2022 Emergency department patient visit NONE PHYSICIAN Facility:A Start: 09-23-2022 End: 09-23-2022 Emergency department patient visit NAE ROBERTO DO [facility] Start: 04-02-2022 End: 04-07-2022 Evaluation and management of inpatient NONE PHYSICIAN Facility:A Start: 03-28-2022 End: 03-28-[address] OLGA ALVAREZ MD Facility:A Start: 03-19-2022 End: 03-19-2022 ambulatory ERIN GIRON MD Facility:A Start: 03-18-2022 End: 03-18-2022 ambulatory ERIN GIRON MD Facility:A Start: 03-14-2022 End: 03-19-2022 ambulatory KELLY NERI DO Facility:[facility] Obstetrics Start: 03-11-2022 End: 03-12-2022 ambulatory KATERIN ELAM MD Facility:A Start: 03-11-2022 End: 03-12-2022 Observation KATERIN ELAM MD [facility] Start: 03-06-2022 End: 03-06-2022 ambulatory SHAHNAZ PUCKETT [facility] Start: 03-04-2022 End: 03-09-2022 ambulatory TOMMY LAINEZ DO Facility:[facility] Obstetrics Start: 09-25-2021 End: 09-25-2021 Patient encounter procedure [facility], [place] spot checker Off Start: 03-09-2018 Emergency department patient visit Jenni Marina Facility:[facility] Start: 09-16-2017 Patient encounter Jenni Marina Facility:[facility] Start: 04-24-2017 Emergency department patient visit Jenni Marina Facility:[facility] Procedures Date Procedure Procedure Detail Performing Clinician Start: 11-02-2024 UA DIP,URINE HCG (POC) Shahnaz Marin MD Work Phone: Start: 01-23-2025 Us pelvic nonobstetr ic real-time image complete Josey Rush APRN.CNM Work Phone: Start: 09-25-2021 Urine culture Tonsillectomy KATERIN Singh Plan of Treatment Date Care Activity Detail Author Start: 03-04-2032 Urine microalbumin profile DTaP,Tdap,Td Vaccine (8 - Td or Tdap) [facility] Start: 03-24-2025 End: 03-24-2025 Patient encounter procedure 03/24/2025 9:30 PM EDT Office Visit Neurology [address] [place] [address] Main, Psg Neur [address] [place], [place] [id number] Dx: DARWIN (obstructive sleep apnea) [G47.33] Neurology Comment on above: Dx: DARWIN (obstructive sleep apnea) [G47.33] Start: 03-10-2025 End: 03-10-2025 Patient encounter procedure 03/10/2025 10:15 AM EDT Office Visit Neurology [facility] [address] [place] [address] Bailee Parmar APRN.QUALITY ASSURANCE MONITOR BODY [address] [place] [address] Neurology [facility] Start: 02-21-2025 Influenza vaccination Influenz a Vaccine (Season Ended) [facility] Start: 01-17-2025 End: 01-17-2025 Patient encounter procedure 01/17/2025 4:30 PM EDT Office Visit General Surgery [address] [place] [address] Debbie Horner MD [address] [address] discuss ozempic General Surgery Comment on above: discuss ozempic Start: 12-08-2024 End: 12-08-2024 Patient encounter procedure 12/08/2024 10:40 AM EDT Office Visit Neurology [facility] [address] [place] [address] [place] [address] [place] [address] Er Follow up Neurology Headache [facility] Comment on above: Er Follow up Start: 11-25-2024 End: 11-25-2024 Admission to same day surgery center 11/25/2024 2:00 PM EDT [facility] Surgery [address] [id number] Mar Ndiaye, MOLDED CANDLES WICKER.[facility] [address] [place] [address] Patient would like to try ozempic General Surgery Comment on above: Patient would like t o try ozempic Start: 11-23-2024 End: 11-23-2024 Admission to same day surgery center 11/23/2024 1:00 PM EDT [facility] [address] [id number] Rin Morgan MD [address] [place] [address] Patient would like to try ozempic General Surgery Comment on above: Patient would like t o try ozempic Start: 11-03-2024 End: 11-03-2024 Patient encounter procedure 11/03/2024 3:15 PM EDT Office Visit [facility] [address] [place] [address] Cari Albert, MOLDED CANDLES WICKER.[facility] [address] [place] [address] Ovarian Cyst [facility] Comment on above: Ovarian Cyst Start: 11-02-2024 End: 11-02-2024 Patient encounter procedure 11/02/2024 11:30 AM EDT Office Visit OB/Gynecology [address] [place], [place] [id number] Shahnaz Marin MD [address] [place], [place] [phone] IUD insertion OB/Gynecology Comment on above: IUD insertion Start: 09-22-2024 End: 09-22-2024 Patient encounter procedure 09/22/2024 2:45 PM EDT Office Visit OB/Gynecology [address] [place] [id number] Zia Lang APRN.QUALITY ASSURANCE MONITOR BODY [address] [place] [address] f/u test results OB/Gynecology Comment on above: f/u test results Start: 09-15-2024 End: 09-15-2024 Patient encounter procedure 09/15/2024 2:00 PM EDT Office Visit Neurology [address] [place] [address] HOME SLEEP APNEA TEST (HSAT)/Class 3 severe obesity with body mass index (BMI) of 50.0 to 59.9 in adult, unspecified obesity type, unspecified whether serious comorbidity present (HCC) [E66.813, E66.01, Z68.43] Neurology Comment on above: HOME SLEEP APNEA JENNIFER T (HSAT)/Class 3 severe obesity with body mass index (BMI) of 50.0 to 59.9 in adult, unspecified obesity type, unspecified whether serious comorbidity present (HCC) [E66.813, E66.01, Z68.43] Start: 07-15-2024 End: 07-15-2024 ambulatory 07/15/2024 11:00 AM EST Procedure OB/Gynecology [address] [place], [place] [phone] [facility], Piping Supervisor [facility] [address] [place] [id number] Ovarian cyst, right [N83.201] OB/Gynecology Comment on above: Ovarian cyst, right [N83.201] Start: 07-09-2024 End: 10-08-2024 Insulin [Units/volume] in Serum or Plasma INSULIN, TOTAL, SERUM Lab Routine Abnormal uterine bleeding (AUB) Expected: 07/09/2024, Expires: 10/08/2024 [facility] Comment on above: Expected: 07/09/2024 , Expires: 10/08/2024 Start: 07-09-2024 End: 10-08-2024 Lipid 1996 panel - Serum or Plasma LIPID PANEL BASIC Lab Routine Abnormal uterine bleeding (AUB) Expected: 07/09/2024, Expires: 10/08/2024 [facility] Comment on above: Expected: 07/09/2024 , Expires: 10/08/2024 Start: 07-09-2024 End: 10-08-2024 TESTOSTERONE, FREE AND TOTAL, BY EQUILIBRIUM ULTRAFILTRATION MASS SPECTROMETRY TESTOSTERONE, FREE AND TOTAL, BY EQUILIBRIUM ULTRAFILTRATION MASS SPECTROMETRY Lab Routine Abnormal uterine bleeding (AUB) Expected: 07/09/2024, Expires: 10/08/2024 [facility] Comment on above: Expected: 07/09/2024 , Expires: 10/08/2024 Start: 07-09-2024 End: 07-09-2025 US Pelvis PELVIC US [facility] Anc Imaging Routine Ovarian cyst, right Expected: 07/09/2024, Expires: 07/09/2025 [facility] Work Phone: Comment on above: Expected: 07/09/2024 , Expires: 07/09/2025 Start: 05-14-2024 End: 05-14-2025 HOME SLEEP APNEA TEST (HSAT) HOME SLEEP APNEA TEST (HSAT) Procedures Routine Class 3 severe obesity with body mass index (BMI) of 50.0 to 59.9 in adult, unspecified obesity type, unspecified whether serious comorbidity present (HCC) Expected: 05/14/2024, Expires: 05/14/2025 [facility] Work Phone: Comment on above: Expected: 05/14/2024 , Expires: 05/14/2025 Start: 05-14-2024 End: 05-14-2024 Admission to same day surgery center 05/14/2024 9:00 AM [facility] General Surgery [address] [place], [place] [phone] Rin Morgan MD [address] [place], [place] [phone] Non-surgical interested in injections General Surgery Comment on above: Non-surgical interes shiraz in injections Start: 02-22-2024 Covid-19 Vaccine ( season) Covid-19 Vaccine ( season) [facility] Start: 02-22-2024 Influenza vaccination Influenza Vacc ine (#1) [facility] Start: 09-16-2018 Pneumococcal vaccination Pneum ococcal Vaccine (2 of 2 - PCV) [facility] Start: 2017 Screening for malign ant neoplasm of cervix Cervical Cancer Screening [facility] Start: 2014 Annual PCP Team Reference Investigator elida Disease Visit Annual PCP Team Chronic Disease Visit [facility] Start: 2014 Anxiety Screening Anxiety Screening [facility] Start: 2014 Depression Screening Depression Scre ening [facility] Start: 2014 Hepatitis C screening Hepatitis C Sc yusufning [facility] Start: 2014 HIV screening HIV Screening [facility] Start: 2014 Spirometry Spirometry [facility] Insertion intrauteri ne device iud INSERT INTRAUTERINE DEVICE Procedures Routine Encounter for IUD insertion Ordered: 11/02/2024 [facility] Work Phone: Comment on above: Ordered: 11/02/2024 End: 01-07-2026 PAP TITRATION PSG (CPAP, BIPAP, ASV) PAP TITRATION PSG (CPAP, BIPAP, ASV) Procedures Routine DARWIN (obstructive sleep apnea) 1 Occurrences starting 12/08/2024 until 01/07/2026 [facility] Work Phone: Comment on above: 1 Occurrences starti ng 12/08/2024 until 01/07/2026 Immunizations Immunization Date Immunization Notes Care Provider Fa consuelo 04-05-2023 RHO(D) immune globul in- IV or IM Gwen Zhang PhD Work Phone: [facility] 03-04-2022 tetanus toxoid, redu elly diphtheria toxoid, and acellular pertussis vaccine, adsorbed KATERIN ELAM MD [facility] 04-21-2018 influenza virus vacc ine, unspecified formulation KATERIN ELAM MD [facility] 09-16-2017 influenza virus vacc ine, unspecified formulation KATERIN ELAM MD [facility] 09-16-2017 pneumococcal polysaccharide vaccine, 23 valent KATERIN ELAM MD [facility] 03-10-2014 influenza virus vacc ine, unspecified formulation KATERIN ELAM MD [facility] 03-13-2013 influenza virus vacc ine, unspecified formulation KATERIN ELAM MD [facility] 12-05-2012 meningococcal polysaccharide (groups A, C, Y and W-135) diphtheria toxoid conjugate vaccine (MCV4P) KATERIN ELAM MD [facility] 03-05-2012 influenza virus vacc ine, unspecified formulation KATERIN ELAM MD [facility] 09-09-2011 tetanus toxoid, redu elly diphtheria toxoid, and acellular pertussis vaccine, adsorbed KATERIN ELAM MD [facility] 04-18-2011 influenza virus vacc ine, unspecified formulation KATERIN ELAM MD [facility] 04-16-2010 influenza virus vacc ine, unspecified formulation KATERIN ELAM MD [facility] 04-05-2009 influenza virus vacc ine, unspecified formulation KATERIN ELAM MD [facility] 07-11-2008 Human Papillomavirus Ken ELAM MD [facility] 04-09-2008 influenza virus vacc ine, unspecified formulation KATERIN ELAM MD [facility] 04-09-2008 varicella virus vaccine MARQUES ELAM MD [facility] 02-20-2008 Human Papillomavirus Ken ELAM MD [facility] 01-07-2008 meningococcal polysaccharide (groups A, C, Y and W-135) diphtheria toxoid conjugate vaccine (MCV4P) KATERIN ELAM MD [facility] 12-01-2007 Human Papillomavirus Ken ELAM MD [facility] 04-25-2007 influenza virus vacc ine, unspecified formulation KATERIN ELAM MD [facility] 08-18-2006 hepatitis A vaccine, pediatric dosage, unspecified formulation KATERIN ELAM MD [facility] 12-09-2005 hepatitis A vaccine, pediatric dosage, unspecified formulation KATERIN ELAM MD [facility] 12-01-2000 measles/mumps/rubell a virus vaccine KATERIN ELAM MD [facility] 02-28-1998 measles/mumps/rubell a virus vaccine KATERIN ELAM MD [facility] 11-28-1997 varicella virus vaccine MARQUES ELAM MD [facility] 08-18-1997 hepatitis B pediatri c vaccine KATERIN ELAM MD [facility] 1996 hepatitis B pediatri c vaccine KATERIN ELAM MD [facility] 1996 hepatitis B pediatri c vaccine K[facility]M [facility] Center Payers Date Payer Category Payer Self-pay [id number] 2022 Medicaid [id number] 2021 Unknown [id number] 2017 Unknown [id number] 1996 Unknown [id number] 2.16. [id number] 1996 Unknown [id number] 2.16.8 [id number] 1996 Unknown [id number] 2.16.8 [id number] 1996 Unknown [id number] 2.16.8 40.1.275562.3.579.2.627 1996 Unknown [id number] 2.16.8 40.1.534651.3.579.2.627 1996 Unknown [id number] 2.16.8 40.1.758224.3.579.2.627 1996 Unknown [id number] 2.16.8 40.1.006687.3.579.2.627 1996 Unknown [id number] 2.16.8 [id number] 1996 Unknown [id number] 2.16.8 40.1.760949.3.579.2.627 Self-pay [id number] Unknown [id number] 2.16.8 [id number] Unknown [id number] 2.16.8 40.1.485330.3.579.2.462 Unknown [id number] 2.16.8 40.1.969146.3.579.2.462 Unknown [id number] 2.16.8 40.1.267543.3.579.2.462 Unknown [id number] 2.16.8 40.1.214101.3.579.2.462 Unknown [id number] 2.16.8 40.1.474102.3.579.2.462 Unknown [id number] 2.16.8 40.1.679282.3.579.2.462 Unknown [id number] 2.16.8 [id number] Social History Date Type Detail Facility [facility] Work Phone: Start: 1995 Sex Assigned At Female [facility] Work Phone: Start: 07-09-2024 End: 10-08-2024 Tobacco smoking status Smokes tobacco daily (finding) [facility] Sex Assigned At Sex [facility] Start: 03-28-2022 Tobacco smoking status Light tobacco smoker (finding) [facility] Tobacco smoking status Ex-smoker (finding ) [facility] Tobacco smoking stat [facility] Tobacco smoking consumption unknown [facility] Start: 04-30-2024 End: 09-07-2024 History of Social function [facility] Start: 04-30-2024 End: 09-07-2024 Patient Health Questionnaire 2 item (PHQ-2) [Reported] [facility] Adult Depression Screening Assessment 0 [facility] (I/We) worried maura er (my/our) food would run out before (I/we) got money to buy more. Never true [facility] Start: 1995 Sex assigned at Not on file [facility] History of tobacco use Cigarette Smoker [facility] Start: 07-09-2024 End: 10-08-2024 Tobacco use and exposure Smokeless tobacco non-user [facility] Start: 07-09-2024 End: 12-08-2024 Alcoholic beverage intake [facility] ([facility] Start: 07-14-2024 Gender identity Identifies as female gender (finding) [facility] Start: 07-14-2024 Sexual orientation Heterosexual (finding) [facility] Functional Status Date Assessment Result Facility 09-23-2022 Functional Status Independent [facility] 03-12-2022 Functional Status Up to chair 1 [facility] 03-12-2022 Functional Status [facility] 03-12-2022 Functional Status bilateral knee high [facility] 03-11-2022 Functional Status Home independently [facility] Mental Status Date Assessment Result Facility 09-23-2022 Mental Status Orientation Oriented x [address] [facility] 09-23-2022 [facility] 09-25-2021 to 12-08-2024 Alber Wolff MD - 12/08/2024 10:40 AM EDTTelephone Encounter - Wendie Francois RN - 11/16/2024 9:47 PM EDTTelephone Encounter - Wendie Francois RN - 11/16/2024 9:47 PM EDTPatient Instructions Note Date & Type Note Facility 12-08-2024 History of Presen t illness Narrative HEADACHE MEDICINE NEW EVALUATION December 08, 2024 10:40 AM Headache 1 Diagnosis: Episodic Migraine Onset: - ANGUIANO onset was approx 1 year ago, and has worsened over time. Pt has DARWIN, and notes that when she uses pillow to prop up--ANGUIANO's are better. She has her sleep pressure titration pending--she needs to set up the second part of the exam. Location: occipital, left and right Quality/Description: throbbing (pulsating) Associated Symptoms: Photophobia: yes Phonophobia: yes Nausea: no Vomiting: no Worse with activity: yes - ANGUIANO's preclude activity at times. Number of migraine headache days/month: 10 Migraine Severity: severe. Number of headache free days/month: 20 Duration of headaches with treatment: Duration of attacks with treatment: ANGUIANO's can be all day. Current preventive treatment: amitriptyline 50 mg Current abortive treatment: APAP or ibuprofen Onset of headache to peak: gradual Relieving factors: massage can help Positional changes: no Most common time of day for headache to begin: upon awakening Prodrome: none Aura: none Allodynia: no Days missed from work or school in the last month: 0 days PAST MEDICAL HISTORY Diagnosis Date Anxiety state Obesity DARWIN (obstructive sleep apnea) PAST SURGICAL HISTORY Procedure Laterality Date TONSILLECTOMY & ADENOIDECTOMY <AGE 13 Current Outpatient Medications Medication Sig levonorgestrel (MIRENA) 21 mcg/24hr (up to 8 yrs) 52 mg IUD 1 each by INTRAUTERINE route as directed. LORazepam (ATIVAN) 0.5 mg 0.5 mg. hydrOXYzine HCl (ATARAX) 25 mg tablet Take 25 mg by mouth four times a day as needed. topiramate (TOPAMAX) 50 mg tablet Take 1 tablet by mouth daily at bedtime for 14 days, THEN 2 tablets daily at bedtime. rizatriptan (MAXALT) 10 mg tablet Take 1 tablet by mouth as needed for migraine headache (see administration instructions) (do not use on more than 2 days per week.). AT ONSET OF HEADACHE. MAY REPEAT AFTER 2 HOURS. DO NOT EXCEED 30 MG PER DAY. No current facility-administered medications for this visit. ALLERGIES Allergen Reactions Latex Itching No family history on file. Social History Tobacco Use Smoking status: Every Day Current packs/day: 0.25 Types: Cigarettes Smokeless tobacco: Never Vaping Use Vaping status: Never Used Substance Use Topics Alcohol use: Not Currently Drug use: Not Currently Types: Marijuana PHYSICAL EXAMINATION 12/08/24 1048 BP: 147/99 BP Site: Right Arm BP Position: Sitting BP Cuff Size: Extra Large Adult Pulse: 116 Temp: 37.1 C (98.7 F) TempSrc: Oral Weight: (!) 180.7 kg (398 lb 5.9 oz) Height: 172.7 cm (5' 8) General appearance: Well appearing, alert, in no acute distress, well-hydrated, well nourished. Head: Normocephalic, no masses, lesions, tenderness or abnormalities Eyes: Anicteric sclera. Extraocular movements are intact. Neuro: Negative findings: speech normal, mental status intact, cranial nerves VII intact, no focal findings. MRI Head/Brain - Last 2 Impressions No resulted procedures found. CT Head/Brain - Last 2 Impressions No resulted procedures found. Lalitha was seen today for hospital f/u. Diagnoses and all orders for this visit: Intractable migraine without aura and without status migrainosus - topiramate (TOPAMAX) 50 mg tablet; Take 1 tablet by mouth daily at bedtime for 14 days, THEN 2 tablets daily at bedtime. - CONSULT TO OPTOMETRY; Future - rizatriptan (MAXALT) 10 mg tablet; Take 1 tablet by mouth as needed for migraine headache (see administration instructions) (do not use on more than 2 days per week.). AT ONSET OF HEADACHE. MAY REPEAT AFTER 2 HOURS. DO NOT EXCEED 30 MG PER DAY. - PROVIDER ORDERED FOLLOW UP; Future DARWIN (obstructive sleep apnea) - PAP TITRATION PSG (CPAP, BIPAP, ASV); Future - CONSULT TO OPTOMETRY; Future - PROVIDER ORDERED FOLLOW UP; Future Lalitha Tatum Garcia is a 29 year old year old female, with a history of morbid obesity, DARWIN, and episodic migraine. Her neurological examination is essentially normal at this visit. Pt reports she had optometry exam in last 6 months at [facility], and knows of no abnormalities. Given ANGUIANO's and Body mass index is 60.57 kg/m .--I want to repeat the optometry exam to ensure there is no papilledema. She has severe DARWIN on HSAT, so needs PAP titration study to determine optimal PAP as well as potential need for supplemental O2 given desaturations. This was ordered today--encouraged to schedule prior to leaving clinic. Trial of topiramate 50 mg po qhs x 2 weeks, then 100 mg po qhs as a preventative. Trial of rizatriptan 10 mg po prn migraine as rescue. Return 3 months. Alber Wolff MD December 08, 2024 11:17 AM documented in this encounter [facility] 12-08-2024 Note HNO ID: [id number] Author: ALBER WOLFF MD Service: ? Author Type: Physician Type: Progress Notes Filed: 12/08/2024 11:18 Note Text: HEADACHE MEDICINE NEW EVALUATION December 08, 2024 10:40 AM Headache 1 Diagnosis: Episodic Migraine Onset: - ANGUIANO onset was approx 1 year ago, and has worsened over time. Pt has DARWIN, and notes that when she uses pillow to prop up--ANGUIANO's are better. She has her sleep pressure titration pending--she needs to set up the second part of the exam. Location: occipital, left and right Quality/Description: throbbing (pulsating) Associated Symptoms: Photophobia: yes Phonophobia: yes Nausea: no Vomiting: no Worse with activity: yes - ANGUIANO's preclude activity at times. Number of migraine headache days/month: 10 Migraine Severity: severe. Number of headache free days/month: 20 Duration of headaches with treatment: Duration of attacks with treatment: ANGUIANO's can be all day. Current preventive treatment: amitriptyline 50 mg Current abortive treatment: APAP or ibuprofen Onset of headache to peak: gradual Relieving factors: massage can help Positional changes: no Most common time of day for headache to begin: upon awakening Prodrome: none Aura: none Allodynia: no Days missed from work or school in the last month: 0 days PAST MEDICAL HISTORY Diagnosis Date Anxiety state Obesity DARWIN (obstructive sleep apnea) PAST SURGICAL HISTORY Procedure Laterality Date TONSILLECTOMY AND ADENOIDECTOMY Current Outpatient Medications Medication Sig levonorgestrel (MIRENA) 21 mcg/24hr (up to 8 yrs) 52 mg IUD 1 each by INTRAUTERINE route as directed. LORazepam (ATIVAN) 0.5 mg 0.5 mg. hydrOXYzine HCl (ATARAX) 25 mg tablet Take 25 mg by mouth four times a day as needed. topiramate (TOPAMAX) 50 mg tablet Take 1 tablet by mouth daily at bedtime for 14 days, THEN 2 tablets daily at bedtime. rizatriptan (MAXALT) 10 mg tablet Take 1 tablet by mouth as needed for migraine headache (see administration instructions) (do not use on more than 2 days per week.). AT ONSET OF HEADACHE. MAY REPEAT AFTER 2 HOURS. DO NOT EXCEED 30 MG PER DAY. No current facility-administered medications for this visit. ALLERGIES Allergen Reactions Latex Itching No family history on file. Social History Tobacco Use Smoking status: Every Day Current packs/day: 0.25 Types: Cigarettes Smokeless tobacco: Never Vaping Use Vaping status: Never Used Substance Use Topics Alcohol use: Not Currently Drug use: Not Currently Types: Marijuana PHYSICAL EXAMINATION 12/08/24 1048 BP: 147/99 BP Site: Right Arm BP Position: Sitting BP Cuff Size: Extra Large Adult Pulse: 116 Temp: 37.1 ?C (98.7 ?F) TempSrc: Oral Weight: (!) 180.7 kg (398 lb 5.9 oz) Height: 172.7 cm (5' 8) General appearance: Well appearing, alert, in no acute distress, well-hydrated, well nourished. Head: Normocephalic, no masses, lesions, tenderness or abnormalities Eyes: Anicteric sclera. Extraocular movements are intact. Neuro: Negative findings: speech normal, mental status intact, cranial nerves VII intact, no focal findings. MRI Head/Brain - Last 2 Impressions No resulted procedures found. CT Head/Brain - Last 2 Impressions No resulted procedures found. Lalitha was seen today for hospital f/u. Diagnoses and all orders for this visit: Intractable migraine without aura and without status migrainosus - topiramate (TOPAMAX) 50 mg tablet; Take 1 tablet by mouth daily at bedtime for 14 days, THEN 2 tablets daily at bedtime. - CONSULT TO OPTOMETRY; Future - rizatriptan (MAXALT) 10 mg tablet; Take 1 tablet by mouth as needed for migraine headache (see administration instructions) (do not use on more than 2 days per week.). AT ONSET OF HEADACHE. MAY REPEAT AFTER 2 HOURS. DO NOT EXCEED 30 MG PER DAY. - PROVIDER ORDERED FOLLOW UP; Future DARWIN (obstructive sleep apnea) - PAP TITRATION PSG (CPAP, BIPAP, ASV); Future - CONSULT TO OPTOMETRY; Future - PROVIDER ORDERED FOLLOW UP; Future Lalitha Garcia is a 29 year old year old female, with a history of morbid obesity, DARWIN, and episodic migraine. Her neurological examination is essentially normal at this visit. Pt reports she had optometry exam in last 6 months at [facility], and knows of no abnormalities. Given ANGUIANO's and Body mass index is 60.57 kg/m?.--I want to repeat the optometry exam to ensure there is no papilledema. She has severe DARWIN on HSAT, so needs PAP titration study to determine optimal PAP as well as potential need for supplemental O2 given desaturations. This was ordered today--encouraged to schedule prior to leaving clinic. Trial of topiramate 50 mg po qhs x 2 weeks, then 100 mg po qhs as a preventative. Trial of rizatriptan 10 mg po prn migraine as rescue. Return 3 months. Alber Wolff MD December 08, 2024 11:17 AM [facility] 11-16-2024 Telephone encounter Note Reason for call: Leg pain Outcome: Advised to GO TO ED NOW (OR PCP TRIAGE). Patient verbalized understanding and is agreeable to the plan. CALL 911 IF: * You develop any new symptoms * Your condition worsens * You are concerned or anxious about your condition for any other reason. If you have any questions, you can call Nurse credit correspondence clerk back. Reason for Disposition Patient sounds very sick or weak to the triager Answer Assessment - Initial Assessment Questions 1. ONSET: Patient states, pain started last Friday11/10/2024, after driving 10 hours, and pain eventually went away, but when she drove back 10 hours yesterday 11/15/2024, pain came back 2. LOCATION: Right leg, from the toes to the thigh, stating, it feels like a pulled muscle or strain 3. PAIN: Patient rates, yesterday 10/10, and currently 6/10 4. WORK OR EXERCISE: Drove 10 hours to and from [place] 5. CAUSE: Driving long period of time 6. OTHER SYMPTOMS: When initially asking patient was she experiencing difficulty breathing, she stated, no new shortness of breath. Patient then stated, during triage, that she was experiencing worsening shortness of breath 7. : Patient denies , and states, she has a mirena. Patient states, she has irregular menstrual cycles Protocols used: Leg [id number] [facility] 11-16-2024 Miscellaneous Notes Reason for call: Leg pain Outcome: Advised to GO TO ED NOW (OR PCP TRIAGE). Patient verbalized understanding and is agreeable to the plan. CALL 911 IF: * You develop any new symptoms * Your condition worsens * You are concerned or anxious about your condition for any other reason. If you have any questions, you can call Nurse credit correspondence clerk back. Reason for Disposition Patient sounds very sick or weak to the triager Answer Assessment - Initial Assessment Questions 1. ONSET: Patient states, pain started last Friday11/10/2024, after driving 10 hours, and pain eventually went away, but when she drove back 10 hours yesterday 11/15/2024, pain came back 2. LOCATION: Right leg, from the toes to the thigh, stating, it feels like a pulled muscle or strain 3. PAIN: Patient rates, yesterday 04/01, and currently 11/30 4. WORK OR EXERCISE: Drove 10 hours to and from [place] 5. CAUSE: Driving long period of time 6. OTHER SYMPTOMS: When initially asking patient was she experiencing difficulty breathing, she stated, no new shortness of breath. Patient then stated, during triage, that she was experiencing worsening shortness of breath 7. : Patient denies , and states, she has a mirena. Patient states, she has irregular menstrual cycles Protocols used: Leg [id number] documented in this encounter [facility] 11-02-2024 Note HNO ID: [id number] Author: SHAHNAZ MARIN MD Service: ? Author Type: Physician Type: Progress Notes Filed: 11/02/2024 12:17 Note Text: Employment Attorney offered: Patient declines. Lalitha presents today for IUD insertion for contraception. Patient's last menstrual period was 09/26/2024 (exact date). GC/chlamydia: Not done: no risk factors and/or patient declines screening test: negative Side effects including irregular bleeding were discussed with the patient. The patient understands that it should be removed in 8 years or sooner if the patient desires a . IUD source: office provided IUD lot #: [id number] Exp date: 11/20/2026 [facility] [id number] UNIVERSAL PROTOCOL / SAFETY CHECKLIST Procedure to be Performed: Intrauterine Device (IUD) insertion Mirena Sign In: A Moment of CARE was completed. Appropriate PPE (Personal Protective Equipment) worn by all providers involved with the procedure. Special equipment not required. Patient/Surrogate Stated/Verified: Patient name, Date of , Relevant allergies, and The intended procedure Time Out: Relevant labs, photos, and/or imaging studies have been reviewed. Intended patient and procedure match the source document(s) (e.g. consent, HANDP, associated studies [imaging, pathology]) match the intended patient and procedure. Consent obtained and matches the intended procedure. Yes. Correct side/site is not applicable. Medications required for this procedure are not applicable. Fire risk assessed and is not applicable. Implants: Correct implant(s) confirmed including size and side. Expiration date(s) reviewed. Sign Out: Specimens not collected. All instruments, equipment, possible retained foreign bodies are accounted for. Yes. The post-procedure plan of care has been communicated to the patient or surrogate. The cervix was prepped with betadine. The uterus sounded to 10 cm and the uterus is Midposition.. Using sterile technique, the Mirena IUD was inserted without difficulty and the string was cut to 3 cm from the external os of the cervix. Patient tolerated procedure well. PLAN: Patient was advised to observe for signs and symptoms of infection including but not limited to fever, malodorous vaginal discharge and/or pain. The patient was told to check the string monthly for accurate placement. Bleeding expectations were reviewed. Follow up for next annual exam or sooner as needed. Shahnaz Marin MD [facility] 11-02-2024 History of Presen t illness Narrative Employment Attorney offered: Patient declines. Lalitha presents today for IUD insertion for contraception. Patient's last menstrual period was 09/26/2024 (exact date). GC/chlamydia: Not done: no risk factors and/or patient declines screening test: negative Side effects including irregular bleeding were discussed with the patient. The patient understands that it should be removed in 8 years or sooner if the patient desires a . IUD source: office provided IUD lot #: [id number] Exp date: 11/20/2026 [facility] [id number] UNIVERSAL PROTOCOL / SAFETY CHECKLIST Procedure to be Performed: Intrauterine Device (IUD) insertion Mirena Sign In: A Moment of CARE was completed. Appropriate PPE (Personal Protective Equipment) worn by all providers involved with the procedure. Special equipment not required. Patient/Surrogate Stated/Verified: Patient name, Date of , Relevant allergies, and The intended procedure Time Out: Relevant labs, photos, and/or imaging studies have been reviewed. Intended patient and procedure match the source document(s) (e.g. consent, H&P, associated studies [imaging, pathology]) match the intended patient and procedure. Consent obtained and matches the intended procedure. Yes. Correct side/site is not applicable. Medications required for this procedure are not applicable. Fire risk assessed and is not applicable. Implants: Correct implant(s) confirmed including size and side. Expiration date(s) reviewed. Sign Out: Specimens not collected. All instruments, equipment, possible retained foreign bodies are accounted for. Yes. The post-procedure plan of care has been communicated to the patient or surrogate. The cervix was prepped with betadine. The uterus sounded to 10 cm and the uterus is Midposition.. Using sterile technique, the Mirena IUD was inserted without difficulty and the string was cut to 3 cm from the external os of the cervix. Patient tolerated procedure well. PLAN: Patient was advised to observe for signs and symptoms of infection including but not limited to fever, malodorous vaginal discharge and/or pain. The patient was told to check the string monthly for accurate placement. Bleeding expectations were reviewed. Follow up for next annual exam or sooner as needed. Shahnaz Marin MD documented in this encounter [facility] 11-02-2024 Instructions eWndy Simms MA - 11/02/2024 11:31 AM EDT POST IUD INSTRUCTIONS You may have irregular bleeding during the first 3 months of use. You may have mild-severe cramping for the next 48 hours. You may use over the counter medication (Motrin, Tylenol) as needed. Your IUD must be removed or replaced based on the following table: IUD Type Removed or replaced within: Mona 3 years Kyleena 5 years Mirena 8 years Liletta 8 years Paragard 10 years Call the office for signs/symptoms of infection such as severe cramping, fever, or unusual bleeding. Check for string placement as instructed by your doctor. If you have any additional questions, please contact the office. documented in this encounter [facility] 10-21-2024 Note Addended by: JOSE ROJAS on: 10/21/2024 01:10 PM Modules accepted: Orders [facility] 10-21-2024 Miscellaneous Notes Addended by: JOSE ROJAS on: 10/21/2024 01:10 PM Modules accepted: Orders Pt called office for medication refill-Norethindrone. This RN then asked Pt if she planned to come to appt today with CP to discuss ovarian cysts.. Pt states No, I just don't feel well. Pt states she still would like to get IUD placed. Pt asking what IUD Dr. Marin recommends. Appt scheduled for 11/02/24 for IUD insertion. Order pending-please complete per your recommendations and file. Will then just need to contact Pt and inform her on what IUD JG recommends & side effects. Reviewed with Pt use of Ibuprofen prior to appt and eating beforehand. Refill request pending as well. Pt aware JG out of office today and returns Friday. Pt voiced understanding. Requested Prescriptions Pending Prescriptions Disp Refills norethindrone (AYGESTIN) 5 mg tablet 30 tablet 0 Sig: Take 1 tablet by mouth every 8 hours for 5 days, THEN 1 tablet two times a day for 5 days, THEN 1 tablet once daily for 5 days. Jose Rojas RN Pt last saw JG 10/08/24 for AUB. Prescribed Norethindrone. States has approximately 4 tablets left-states it helps, but when she stops it, her bleeding comes back. Denies pain. Pt asking for norethindrone for TID because that's when it works best. Advised her that note from visit on 10/08/24 stated that IUD was planned. Pt states she is agreeable to IUD and wonders if this would help with the bleeding. Pt has appt scheduled with CP today and wonders if the IUD can be placed today. Informed her that it will not be able to be placed today, but she can certainly discuss with CP the AUB/Rx for bleeding and what IUD is recommended for this particular situation. Pt agreeable to keeping appt today to discuss information with provider. Jose Rojas RN documented in this encounter [facility] 10-21-2024 Telephone encounter Note Pt called office for medication refill-Norethindrone. This RN then asked Pt if she planned to come to appt today with CP to discuss ovarian cysts.. Pt states No, I just don't feel well. Pt states she still would like to get IUD placed. Pt asking what IUD Dr. Marin recommends. Appt scheduled for 11/02/24 for IUD insertion. Order pending-please complete per your recommendations and file. Will then just need to contact Pt and inform her on what IUD recommends & side effects. Reviewed with Pt use of Ibuprofen prior to appt and eating beforehand. Refill request pending as well. Pt aware JG out of office today and returns Friday. Pt voiced understanding. Requested Prescriptions Pending Prescriptions Disp Refills norethindrone (AYGESTIN) 5 mg tablet 30 tablet 0 Sig: Take 1 tablet by mouth every 8 hours for 5 days, THEN 1 tablet two times a day for 5 days, THEN 1 tablet once daily for 5 days. Jose Rojas RN [facility] 10-21-2024 Instructions Jose Rojas RN - 10/21/2024 12:16 PM EDT POST IUD INSTRUCTIONS You may have irregular bleeding during the first 3 months of use. You may have mild-severe cramping for the next 48 hours. You may use over the counter medication (Motrin, Tylenol) as needed. Your IUD must be removed or replaced based on the following table: IUD Type Removed or replaced within: Mona 3 years Kyleena 5 years Mirena 8 years Liletta 8 years Paragard 10 years Call the office for signs/symptoms of infection such as severe cramping, fever, or unusual bleeding. Check for string placement as instructed by your doctor. If you have any additional questions, please contact the office. documented in this encounter [facility] 10-21-2024 Telephone encounter Note Pt last saw EdwardG 10/08/24 for AUB. Prescribed Norethindrone. States has approximately 4 tablets left-states it helps, but when she stops it, her bleeding comes back. Denies pain. Pt asking for norethindrone for TID because that's when it works best. Advised her that note from visit on 10/08/24 stated that IUD was planned. Pt states she is agreeable to IUD and wonders if this would help with the bleeding. Pt has appt scheduled with CP today and wonders if the IUD can be placed today. Informed her that it will not be able to be placed today, but she can certainly discuss with CP the AUB/Rx for bleeding and what IUD is recommended for this particular situation. Pt agreeable to keeping appt today to discuss information with provider. Jose Rojas RN [facility] 10-08-2024 Note HNO ID: [id number] Author: SHAHNAZ MARIN MD Service: ? Author Type: Physician Type: Progress Notes Filed: 10/08/2024 11:27 Note Text: .DISTANCE HEALTH VISIT This Team Access Model visit is a virtual encounter. It required patient-provider interaction for the medical decision making as documented below. I have communicated my name and active licensure. The patient's identity and physical location were verified at the time of this visit. Either the patient or their legal videotape sales representative has been informed of the risks and benefits of -- and alternatives to -- treatment through a remote evaluation and consents to proceed with the evaluation remotely. Lalitha Garcia is a 28 year old female seen for AUB. Seen in ED this Am for 12 days of vaginal bleeding. Labs normal. Was instructed to call the office for medication. Previously taking norethindrone for heavy bleeding in Feb. Did a step down regimen to stop bleeding. She in interested in getting on some for of BC to prevent this in the future. Currently in weight management. Does not want Depo or Nexplanon. Discussed Mirena as she does have a hx of migraines with aura. Plans to make an appointment for IUD consult and placement HISTORY REVIEWED (electronic chart updated): - medical history - medications - allergies - tests: ED labs REVIEW OF SYSTEMS: GENERAL: feeling well without fatigue, no recent change in weight GINNING OPERATOR: no vaginal discharge, no breast mass/tenderness, menstrual periods are described as: irregular and heavy NEURO: no headache PHYSICAL EXAMINATION: VIDEO EXAM: (if done, performed via video enabled technology) No exam performed ASSESSMENT: (N93.9) Abnormal uterine bleeding (AUB) (primary encounter diagnosis) PLAN: Norethindrone taper IUD planned There are no Patient Instructions on file for this visit. Shahnaz Marin MD [facility] 10-08-2024 History of Presen t illness Narrative .DISTANCE HEALTH VISIT This Team Access Model visit is a virtual encounter. It required patient-provider interaction for the medical decision making as documented below. I have communicated my name and active licensure. The patient's identity and physical location were verified at the time of this visit. Either the patient or their legal videotape sales representative has been informed of the risks and benefits of -- and alternatives to -- treatment through a remote evaluation and consents to proceed with the evaluation remotely. Lalitha Garcia is a 28 year old female seen for AUB. Seen in ED this Am for 12 days of vaginal bleeding. Labs normal. Was instructed to call the office for medication. Previously taking norethindrone for heavy bleeding in Feb. Did a step down regimen to stop bleeding. She in interested in getting on some for of BC to prevent this in the future. Currently in weight management. Does not want Depo or Nexplanon. Discussed Mirena as she does have a hx of migraines with aura. Plans to make an appointment for IUD consult and placement HISTORY REVIEWED (electronic chart updated): - medical history - medications - allergies - tests: ED labs REVIEW OF SYSTEMS: GENERAL: feeling well without fatigue, no recent change in weight GINNING OPERATOR: no vaginal discharge, no breast mass/tenderness, menstrual periods are described as: irregular and heavy NEURO: no headache PHYSICAL EXAMINATION: VIDEO EXAM: (if done, performed via video enabled technology) No exam performed ASSESSMENT: (N93.9) Abnormal uterine bleeding (AUB) (primary encounter diagnosis) PLAN: Norethindrone taper IUD planned There are no Patient Instructions on file for this visit. Shahnaz Marin MD documented in this encounter [facility] 09-16-2024 Note HNO ID: [id number] Author: ?, ?, ? Service: ? Author Type: ? Type: Progress Notes Filed: 09/16/2024 11:55 Note Text: Sleep Study Check-In Documentation Date: September 16, 2024 Name: Lalitha Garcia Comments: HST was returned in working order with all sleep questionnaires Sohail Montenegro [facility] 09-14-2024 Note HNO ID: [id number] Author: ?, ?, ? Service: ? Author Type: ? Type: Progress Notes Filed: 09/16/2024 11:55 Note Text: Nomad#[id number] , +GPS Date shipped out: 09/15/2024 SENT CLIPPING MARKER DELIVERY - CLIPPING MARKER RETURN Tracking mailout: [phone] [id number] Tracking return: [id number] Tracking information inserted above by LSS. Nomad device deployed by another Coordinator II -- 09/14/24 [facility] 09-13-2024 Note HNO ID: [id number] Author: LUZ ELENA GALVAN III, PhD Service: ? Author Type: Physician Type: Progress Notes Filed: 09/16/2024 11:55 Note Text: September 13, 2024 Standing PSG Orders signed in the last 90 days None Future PSG Orders signed in the last 90 days None All Prior Sleep Studies (past 365 days) 05/14/2024 13:48 Sleep Studies HOME SLEEP APNEA TEST (HSAT) HOME SLEEP APNEA TEST (HSAT) Order Status: Ordered, Future Expected: 05/14/2024 Expires: 05/14/25 BMI Readings from Last 2 Encounters: 09/11/24 : 58.54 kg/m? 09/09/24 : 58.59 kg/m? No past medical history on file. The medical record was reviewed to determine if the proposed sleep study conforms to the AASM Practice Parameters for the Indications for Polysomnography and Related Procedures, or if the sleep study is indicated for other reasons. Indications for study: DARWIN suspected with comorbid medical or sleep disorders: Morbid obesity (BMI>40 kg/m2) Sleep study to be performed: Home Sleep Apnea Test (HSAT) Special instructions: None-follow laboratory protocol Vianca Fong --- Sleep Medicine Staff Note: I have read the above protocol, edited as needed, and agree to the plan. Luz Elena Galvan III, PhD 4:45 PM, 09/13/2024 [facility] 09-13-2024 Note HNO ID: [id number] Author: ?, ?, ? Service: ? Author Type: ? Type: Progress Notes Filed: 09/16/2024 11:55 Note Text: September 13, 2024 An order has been received for Home Sleep Apnea Test (HSAT) from Rin Smith a B. [facility] Staff. Visit prep complete. Comments :No The sleep study is scheduled for 09/15. Insurance: Payor: [facility] MEDICAID / Plan: [facility] COMMUNITY PLAN MEDICAID OF [place] / Product Type: Medicaid / Payer/Plan Subscr Sex Relation Sub. Ins. ID Effective Group Num 1. [facility] MEDICAID * LALITHA GARCIA 1995 Female Self [id number] 08/21/24 [facility] [address] Selina Mckee [facility] 09-09-2024 Note HNO ID: [id number] Author: AVERY LANGSTON HUC Service: Treatment Planning Author Type: Health Private Eye Type: ED Notes Filed: 09/16/2024 11:34 Note Text: Emergency Services: ED Call Back Questionnaire SERVICE DATE: 09/09/2024 Are you feeling better? No Any questions about discharge instructions and follow-up care? No Were you able to make a follow up appointment? Yes Do you have any further questions? No Is there anything that we could have done differently to improve your ED visit? No Yasmin to imelda SIGNATURE: ALBERT Meehan PATIENT NAME: Lalitha Garcia DATE: September 16, 2024 TIME: 11:34 AM [facility] 09-09-2024 Telephone encounter Note Reason for Call: Patient states she was instructed to go to the emergency room and wants to know how long the wait time is. Patient states she has a headache, base of neck on spine, above both temples for two weeks Outcome: Patient advised that I was unable to confirm a wait time and that I was not able to speculate about the type of headache she was having, reinforced her previous direction to be evaluated. Caller voiced understanding. Reason for Disposition General information question, no triage required and triager able to answer question Protocols used: Information Only Call - No [id number] [facility] 09-09-2024 Miscellaneous Notes Reason for Call: Patient states she was instructed to go to the emergency room and wants to know how long the wait time is. Patient states she has a headache, base of neck on spine, above both temples for two weeks Outcome: Patient advised that I was unable to confirm a wait time and that I was not able to speculate about the type of headache she was having, reinforced her previous direction to be evaluated. Caller voiced understanding. Reason for Disposition General information question, no triage required and triager able to answer question Protocols used: Information Only Call - No [id number] documented in this encounter [facility] 09-09-2024 Telephone encounter Note Reason for Call: headache Outcome: Patient advised to go to the Emergency Room now. Patient plans to go to [facility] at this time. Encouraged to tack puller machine and call 911 if anything worsens or changes in route. Kena Cross RN Reason for Disposition Loss of vision or double vision (Exception: Same as previously diagnosed migraines.) Answer Assessment - Initial Assessment Questions 1. LOCATION: both sides of yarsanism and bridge of nose and back of neck. 2. ONSET: 2 weeks ago around 08/26/2024 3. PATTERN: Constant pain decreases and increases during the day but never subsides. 4. SEVERITY: 5-6/10 medication helps decrease pain but headache does not subside. Sharp stabbing pain. - MODERATE (4-7): Interferes with normal activities or awakens from sleep. 5. RECURRENT SYMPTOM: Patient states she has had migraines before but more controllable. Never had diagnosis of migraine 6. CAUSE: stress 7. MIGRAINE: No diagnosis 8. HEAD INJURY: Denies 9. OTHER SYMPTOMS: Blurred vision and dizziness, Patient states a week ago she had some sinus issues but that it is not related to headache. 10. : Unknown, negative tests LMP 08/01/2024 Protocols used: [id number] [facility] 09-09-2024 Miscellaneous Notes Reason for Call: headache Outcome: Patient advised to go to the Emergency Room now. Patient plans to go to [facility] at this time. Encouraged to tack puller machine and call 911 if anything worsens or changes in route. Kena Cross RN Reason for Disposition Loss of vision or double vision (Exception: Same as previously diagnosed migraines.) Answer Assessment - Initial Assessment Questions 1. LOCATION: both sides of yarsanism and bridge of nose and back of neck. 2. ONSET: 2 weeks ago around 08/26/2024 3. PATTERN: Constant pain decreases and increases during the day but never subsides. 4. SEVERITY: 5-6/10 medication helps decrease pain but headache does not subside. Sharp stabbing pain. - MODERATE (4-7): Interferes with normal activities or awakens from sleep. 5. RECURRENT SYMPTOM: Patient states she has had migraines before but more controllable. Never had diagnosis of migraine 6. CAUSE: stress 7. MIGRAINE: No diagnosis 8. HEAD INJURY: Denies 9. OTHER SYMPTOMS: Blurred vision and dizziness, Patient states a week ago she had some sinus issues but that it is not related to headache. 10. : Unknown, negative tests LMP 08/01/2024 Protocols used: [id number] documented in this encounter [facility] 09-07-2024 Instructions Rin Morgan MD - 09/07/2024 2:32 PM EDT Images from the original note were not included. Plan: -- Discontinue metformin -- Start Trulicity 0.75 mg/w and monitor for side effects. If feeling ok after 4 weeks, send Help Scoutt message and we can increase dose if interested and well tolerated. MEDICATION IS CONTRAINDICATED WITH -- Healthy diet to prevent side effects; stay well hydrated with water or zero calorie drinks. -- Get Sleep Study as soon as possible; phone [phone] -- Establish care with PCP in [facility] as soon as possible; please call [phone] -- F/u with GINNING OPERATOR and discuss control while on Trulicity -- Continue f/u with Psychiatry -- Return to clinic/virtually in 3 months Dietary recommendations while on Obesity Medications with Semaglutide or Tirzepatide: These medications have a peak concentration around the first 3 days after the injection where GI side effects can be at high risk. Some dietary recommendations include the following during this period: Reduce fat intake (oils, cheeses, fried foods, avocado, nuts, red meat, etc.) Small frequent meals and protein easy to digest like: protein shakes, eggs, reduced fat dairy, tuna, shredded chicken. Recommend large meal before injection then low fat, easy to digest protein meals after injection (mainly day 1) Do this for the FIRST 3 DAYS after the injection as this is the time where the drug may have its strongest effect - as well as when typically, the side effects can occur You can resume a more regular healthy diet after day 3 [place] healthy Eating Plate: [email or web address] ate/ Make most of your meal vegetables and fruits - of your plate: Aim for color and variety, and remember that potatoes don t count as vegetables on the Healthy Eating Plate because of their negative impact on blood sugar. Go for whole grains - of your plate: Whole and intact grains--whole wheat, barley, wheat berries, quinoa, oats, brown rice, and foods made with them, such as whole wheat pasta--have a milder effect on blood sugar and insulin than white bread, white rice, and other refined grains. Protein power - of your plate: Fish, poultry, beans, and nuts are all healthy, versatile protein sources--they can be mixed into salads, and pair well with vegetables on a plate. Limit red meat, and avoid processed meats such as epstein and sausage. Healthy plant oils - in moderation: Choose healthy vegetable oils like olive, canola, soy, corn, sunflower, peanut, and others, and avoid partially hydrogenated oils, which contain unhealthy trans fats. Remember that low-fat does not mean healthy. Drink water, coffee, or tea: Skip sugary drinks, limit milk and dairy products to one to two servings per day, and limit juice to a small glass per day. Stay active: The red figure running across the Healthy Eating Plate s placemat is a reminder that staying active is also important in weight control. Recipe ideas [email or web address]-complete- list/ DULAGLUTIDE (Trulicity) - The medication comes in a once weekly, single-dose pen. - The most common adverse reactions reported in >=5% of Trulicity-treated patients in trials were nausea, diarrhea, vomiting, abdominal pain, decreased appetite, dyspepsia, and fatigue.The side effects are usually transient in nature. Please reach out for assistance in managing these symptoms if they persist and are bothersome. Side effects typically occur 1-3 days after the injection, when starting the medication, and with dose increases. With this in mind consider timing the injection like on a Friday night, so if you have side effects they will occur on the weekend versus while you are at work. -- We should have further discussions about taking this medication if you have a history of a pancreatitis, a disease called MEN2, or you or a family member has had medullary thyroid cancer. -- please inform me immediately if you are or plan to become . -- Although rare, there is an increased risk for inflammation of the pancreas (pancreatitis), gallbladder problems (including gallstones), low blood sugar (typically when combined with a medication called a sulfonurea), acute kidney injury (bwith nausea/vomiting and resulting dehydration), diabetic retinopathy (damage to the eye's retina), increased heart rate, and suicidal behavior or thinking. -- Please reach out if in-person pen training is needed. -- Keep medication refrigerated. It is good for 2 weeks out of the refrigerator as long as it had not been in high temperatures or direct sunlight. Instructions for Use Trulicity Patient Education How to use the pen: What is Trulicity & Easy To Use Pen Trulicity (dulaglutide) Full medication guide: Trulicity What Is Trulicity? Trulicity is a brand-name prescription drug that belongs to the drug class glucagon-like peptide-1 (GLP-1) agonists. Trulicity is available as a liquid solution self-injectable medication. It is a pre-filled, disposable, single-use injection pen. Can Trulicity Be Used for Weight Loss? While Trulicity is not a weight loss drug, Similar drugs in the same class of medication called GLP1's have recently been approved for weight loss by the FDA. These drugs are named Wegovy and Saxenda. The medication will be delivered as a once-weekly shot, in combination with diet and exercise. How Does Trulicity for Weight Loss Work? Trulicity is in a drug class called GLP-1 agonists that are used to control blood sugar, and can be taken to assist in weight loss. This drug works by - Slowing down how fast your stomach empties food - Blocking hormones that cause the liver to release sugar - Together, these combined actions cause the feeling of hunger to decrease, which leads to eating less, and finally, weight loss. How Long Does It Take for Trulicity to Work for Weight Loss? Results vary from person to person with Ozempic. Some people may have a quick initial weight drop; for others, it may take more time. Trulicity has been shown to help people lose weight in a safe, long-term, and healthy way. A [facility] doctor will help you with dosages of Trulicity for weight loss and might recommend slowly increasing dosage over time to maximize weight loss. The speed at which you lose weight is largely influenced by the amount of lifestyle changes you are able to make: there is no magic weight loss drug on the market. It s important to remember that weight loss takes time, and you ll have the best results if you use Trulicity in combination with exercise and a healthy diet. Trulicity for Weight Loss Dulaglutide: Patient drug information Access [employer] for additional drug information, tools, and databases. Copyright 5098-1512 [employer]. All rights reserved. (For additional information see Dulaglutide: Drug information) You must carefully read the Consumer Information Use and Disclaimer below in order to understand and correctly use this information. Brand Names: [place] Trulicity Brand Names: Min Trulicity Warning Drugs like this one have been shown to cause thyroid cancer in some animals. It is not known if this drug may cause thyroid cancer in humans. Call your doctor right away if you have a neck mass, trouble breathing, trouble swallowing, or hoarseness that will not go away. Do not use this drug if you have a health problem called Multiple Endocrine Neoplasia syndrome type 2 (MEN 2), or if you or a family member have had thyroid cancer. What is this drug used for? It is used to lower blood sugar in patients with high blood sugar (diabetes). It is used to lower the chance of heart attack, stroke, and in some people. What do I need to tell my doctor BEFORE I take this drug? If you are allergic to this drug; any part of this drug; or any other drugs, foods, or substances. Tell your doctor about the allergy and what signs you had. If you have any of these health problems: Type 1 diabetes or stomach or bowel problems. If you have ever had pancreatitis. If the patient is a child. Do not give this drug to a child. This is not a list of all drugs or health problems that interact with this drug. Tell your doctor and pharmacist about all of your drugs (prescription or OTC, natural products, vitamins) and health problems. You must check to make sure that it is safe for you to take this drug with all of your drugs and health problems. Do not start, stop, or change the dose of any drug without checking with your doctor. What are some things I need to know or do while I take this drug? Tell all of your health care providers that you take this drug. This includes your doctors, nurses, pharmacists, and dentists. Follow the diet and workout plan that your doctor told you about. Wear disease medical alert ID (identification). Check your blood sugar as you have been told by your doctor. Have blood work checked as you have been told by the doctor. Talk with the doctor. Do not drive if your blood sugar has been low. There is a greater chance of you having a crash. It may be harder to control blood sugar during times of stress such as fever, infection, injury, or surgery. A change in physical activity, exercise, or diet may also affect blood sugar. Kidney problems have happened with drugs like this one. Sometimes, kidney problems have needed to be treated in the hospital. Dialysis has also been needed. Talk with your doctor. Tell your doctor if you have upset stomach, throwing up, diarrhea, or too much sweating. Losing too much fluid may raise your chance of kidney problems. If you are dehydrated, talk with your doctor. This drug may prevent other drugs taken by mouth from getting into the body. If you take other drugs by mouth, you may need to take them at some other time than this drug. Talk with your doctor. Do not share pen or cartridge devices with another person even if the needle has been changed. Sharing these devices may pass infections from one person to another. This includes infections you may not know you have. Tell your doctor if you are , plan on getting , or are breast-feeding. You will need to talk about the benefits and risks to you and the baby. What are some side effects that I need to call my doctor about right away? WARNING/CAUTION: Even though it may be rare, some people may have very bad and sometimes deadly side effects when taking a drug. Tell your doctor or get medical help right away if you have any of the following signs or symptoms that may be related to a very bad side effect: Signs of an allergic reaction, like rash; hives; itching; red, swollen, blistered, or peeling skin with or without fever; wheezing; tightness in the chest or throat; trouble breathing, swallowing, or talking; unusual hoarseness; or swelling of the mouth, face, lips, tongue, or throat. Signs of a pancreas problem (pancreatitis) like very bad stomach pain, very bad back pain, or very bad upset stomach or throwing up. Signs of kidney problems like unable to pass urine, change in how much urine is passed, blood in the urine, or a big weight gain. Change in eyesight. Low blood sugar can happen. The chance may be raised when this drug is used with other drugs for diabetes. Signs may be dizziness, headache, feeling sleepy or weak, shaking, fast heartbeat, confusion, hunger, or sweating. Call your doctor right away if you have any of these signs. Follow what you have been told to do for low blood sugar. This may include taking glucose tablets, liquid glucose, or some fruit juices. What are some other side effects of this drug? All drugs may cause side effects. However, many people have no side effects or only have minor side effects. Call your doctor or get medical help if any of these side effects or any other side effects bother you or do not go away: Not hungry. Feeling tired or weak. It is common to have diarrhea, upset stomach, throwing up, or stomach pain with this drug. Call your doctor if any of these side effects get very bad, bother you, or do not go away. These are not all of the side effects that may occur. If you have questions about side effects, call your doctor. Call your doctor for medical advice about side effects. You may report side effects to your national health agency. How is this drug best taken? Use this drug as ordered by your doctor. Read all information given to you. Follow all instructions closely. It is given as a shot into the fatty part of the skin on the top of the thigh, belly area, or upper arm. If you will be giving yourself the shot, your doctor or nurse will teach you how to give the shot. Be sure you know how to use this drug. Read the instructions for use that come with this drug. If there are no instructions for use or you have any questions about how to use this drug, talk with the doctor or pharmacist. Take with or without food. Drink lots of noncaffeine liquids unless told to drink less liquid by your doctor. Take the same day each week. Do not use if the solution is cloudy, leaking, or has particles. Do not use if solution changes color. Wash your hands before and after use. Move site where you give the shot each time. If you are also using insulin, you may inject this drug and the insulin in the same area of the body but not right next to each other. Do not mix this drug in the same syringe with insulin. Keep taking this drug as you have been told by your doctor or other health care provider, even if you feel well. Throw away needles in a needle/sharp disposal box. Do not reuse needles or other items. When the box is full, follow all local rules for getting rid of it. Talk with a doctor or pharmacist if you have any questions. What do I do if I miss a dose? Take a missed dose as soon as you think about it. If it is less than 3 days (72 hours) until your next dose, skip the missed dose. Take your next dose on your normal day. Do not take 2 doses at the same time or extra doses. How do I store and/or throw out this drug? Store in a refrigerator. Do not freeze. Do not use if it has been frozen. If needed, you may store at room temperature for up to 14 days. Write down the date you take this drug out of the refrigerator. If stored at room temperature and not used within 14 days, throw this drug away. Store in the original container to protect from light. Protect from heat. Keep all drugs in a safe place. Keep all drugs out of the reach of children and pets. Throw away unused or drugs. Do not flush down a toilet or pour down a drain unless you are told to do so. Check with your pharmacist if you have questions about the best way to throw out drugs. There may be drug take-back programs in your area. General drug facts If your symptoms or health problems do not get better or if they become worse, call your doctor. Do not share your drugs with others and do not take anyone else's drugs. Some drugs may have another patient information leaflet. If you have any questions about this drug, please talk with your doctor, nurse, pharmacist, or other health care provider. If you think there has been an overdose, call your poison control center or get medical care right away. Be ready to tell or show what was taken, how much, and when it happened. Last Reviewed [id number] Consumer Information Use and Disclaimer This generalized information is a limited summary of diagnosis, treatment, and/or medication information. It is not meant to be comprehensive and should be used as a tool to help the user understand and/or assess potential diagnostic and treatment options. It does NOT include all information about conditions, treatments, medications, side effects, or risks that may apply to a specific patient. It is not intended to be medical advice or a substitute for the medical advice, diagnosis, or treatment of a health care provider based on the health care provider's examination and assessment of a patient's specific and unique circumstances. Patients must speak with a health care provider for complete information about their health, medical questions, and treatment options, including any risks or benefits regarding use of medications. This information does not endorse any treatments or medications as safe, effective, or approved for treating a specific patient. [employer] and its affiliates disclaim any warranty or liability relating to this information or the use thereof. The use of this information is governed by the Terms of Use, available at https://www.[employer]/e n/solutions/lexdarrionmp/about/stuart documented in this encounter [facility] 09-07-2024 History of Presen t illness Narrative BMI Obesity Medicine FollowUp Note Distance Health Visit September 07, 2024 I have communicated my name and active licensure. The patient's identity and physical location were verified at the time of this visit. Either the patient or their legal videotape sales representative has been informed of the risks and benefits of -- and alternatives to -- treatment through a remote evaluation and consents to proceed with the evaluation remotely. Patient Summary: Lalitha Garcia is 28 year old Female who presents virtually for follow-up evaluation of her obesity and related complications to the [facility]. In our previous visits we have outlined an individualized lifestyle intervention including a personalized nutrition recommendations and physical activity optimization. Relevant PMH: ADHD not taking Adderall and methylphenidate (per patient she was obligated by Mother to take them before but now she is not taking), s/p foster status, asthma, pre-eclampsia, HTN, snoring (suspects of DARWIN) . Recently, started amitriptyline and hydroxyzine for depression and anxiety Weight History: 09/07/24 385 lbs self reported +26 lbs 05/14/24 359 lbs self reported - initial visit Max wt 359 lbs at age 27 Low wt 250 lbs at age 19 in HS Avg wt 282-283 before Overall goal: 223 lbs Last 3 Encounter Wt Readings: Date: Wt: 07/20/2024 169.6 kg (374 lb) 07/09/2024 169.2 kg (373 lb) 05/14/2024 162.8 kg (359 lb) Interval History: She specifies the following items as new or significant updates since the last appointment: Visit to ED for HTN but not seen (left). Took metformin for 3 weeks, it helped with the appetite at the beginning but then not so much effect in weight and dc due to side effects: abdominal pain, diarrhea, nausea wo vomiting. Gained weight due to depression, loss a friend recently. Recently started hydroxyzine PRN for panic attacks and amitriptyline for depression and migraines. Pending HSA to r/o DARWIN and pending establish care with PCP from prior visit. Returns after 4 months Reports weight is increased since the last visit. Obesity Medications: Metformin. Start Date: 05/24/24 Weight: 359 lbs Effects Discontinued due to side effects abdominal pain and nausea S/E: abdominal pain, diarrhea, upset stomach, some nausea; feeling tired Other AOMs None Diet: Reports quality of diet as healthy. Change in diet Yes; cutting down on FF; trying to eat more whole foods (fruits and vegetables) Exercise: Change in physical activity: No ?Sleep: Change in sleep No Pending HSA ??Stress: other: depressed mood due to losing a friend recently Working with psychiatry Review of Systems: I have confirmed and edited as necessary, the PFSH and ROS obtained by others. Endorses: headache only in the morning, SOB on exertion Denies: chest pain, palpitations, or any other active problem at the time of my evaluation Patient denies personal or family history of MTC or MEN. Patient denies PMH pancreatitis, gallbladder disease, gastroparesis Control and weight loss medications: control method: none; sexually active AOM: Trulicity Comments: All anti-obesity medications are contraindicated in and during ! - If you are actively planning to get , do not take any weight loss medications. - If you are not planning to get during weight loss medications, it is strongly recommended to be on a weight neutral control. - If you are taking oral contraceptives and topiramate, phentermine or tirzepitide, it is recommended to add another control (barrier type) given decrease of efficacy of oral contraceptives on these medications. - If you are on topiramate, phentermine or tirzepitide; it is recommended to do home test before start taking medication then monthly to make sure you are not while on weight loss medications. - Topiramate can cause defects including but not limited to cleft palate. - If you become while on any type of weight loss medications, discontinue immediately and notify your provider. - If you have any questions, please discuss with your providers - Patient understand risks, benefits and side effects; and agree with the plan. History reviewed in [facility] Current Outpatient Medications Medication Sig metFORMIN (GLUCOPHAGE) 500 mg tablet Take 1 tablet by mouth two times a day with meals. Start taking one tablet after breakfast for 1-2 weeks. If tolerated, may increase dose to one tablet after breakfast and one tablet after dinner. No current facility-administered medications for this visit. No past medical history on file. PAST SURGICAL HISTORY Procedure Laterality Date TONSILLECTOMY & ADENOIDECTOMY <AGE 13 Physical Exam: LMP 07/09/2024 (Exact Date) Weight: Patient reported weight. VIDEO EXAM: (if done, performed via video enabled technology) General: normal appearance limited to the screen Respiratory: no evidence of acute distress; can speak full sentences Neuro: alert and oriented. No evidence of acute neuro-deficits at the time of my evaluation Results: reviewed labs with the patient. Patient sent labs from out side hospital and reviewed Glucose (mg/dL) Date Value 04/05/2023 121 (H) BUN (mg/dL) Date Value 04/05/2023 7 Creatinine (mg/dL) Date Value 04/05/2023 0.66 Sodium (mmol/L) Date Value 04/05/2023 136 Potassium (mmol/L) Date Value 04/05/2023 3.7 Chloride (mmol/L) Date Value 04/05/2023 104 CO2 (mmol/L) Date Value 04/05/2023 23 Calcium, Total (mg/dL) Date Value 04/05/2023 9.1 Impression: Lalitha Garcia is a 28 year old female with BMI 56.87 and the above obesity related complications. Relevant PMH: ADHD not taking Adderall and methylphenidate (per patient she was obligated by Mother to take them before but now she is not taking), s/p foster status, asthma, pre-eclampsia, HTN, snoring (suspects of DARWIN) . Recently, started amitriptyline and hydroxyzine for depression and anxiety Since she esablished care at the [facility]; weight gain +26 lbs; unable to tolerate metformin. Dealing with depression and recently started hydroxyzine PRN for panic attacks and amitriptyline for depression and migraines. Pending HSA to r/o DARWIN and pending establish care with PCP from prior visit. Today, we discussed healthy lifestyle including diet and physical activity. To support weight loss, patient is interested in anti-obesity medication with Trulicity if covered . We reviewed risks, benefits and side effects including contraindication with ; strongly advised to try a control. Expected weight loss 1-2 lbs avg per week. Additionally, we reviewed recommendations for healthy diet to mitigate side effects with GLP-1 meds. Additionally patient interested in meeting with RDN to optimize diet. Strongly advise to get HSA and establish care with PCP and f/u with GINNING OPERATOR along with psychiatry. Plan: -- Discontinue metformin -- Start Trulicity 0.75 mg/w and monitor for side effects. If feeling ok after 4 weeks, send [employer] message and we can increase dose if interested and well tolerated. MEDICATION IS CONTRAINDICATED WITH -- Healthy diet to prevent side effects; stay well hydrated with water or zero calorie drinks. -- Get Sleep Study as soon as possible; phone [phone] -- Establish care with PCP in [facility] as soon as possible; please call [phone] -- F/u with GINNING OPERATOR and discuss control while on Trulicity -- Continue f/u with Psychiatry -- return to clinic/virtually in 3 months The plan was discussed in detail with the patient; risks/benefits; side effect and other options were explained; all questions were answered. Patient expressed agreement with the plan. Follow up: 3 months or earlier if needed. Should you have any questions, please do not hesitate to contact me. Thank you, Rin Morgan MD Bariatric [facility] Met[facility] [place] / General Surgery I spent a total of 40 minutes on the date of the service which included preparing to see the patient, [id number] patient care, completing clinical documentation, obtaining and/or reviewing separately obtained history, performing a medically appropriate examination, counseling and educating the patient/family/caregiver, and ordering medications, tests, or procedures. documented in this encounter [facility] 09-07-2024 Note HNO ID: [id number] Author: RIN MORGAN MD Service: ? Author Type: Physician Type: Progress Notes Filed: 09/07/2024 17:44 Note Text: BMI Obesity Medicine FollowUp Note Distance Health Visit September 07, 2024 I have communicated my name and active licensure. The patient's identity and physical location were verified at the time of this visit. Either the patient or their legal videotape sales representative has been informed of the risks and benefits of -- and alternatives to -- treatment through a remote evaluation and consents to proceed with the evaluation remotely. Patient Summary: Lalitha Garcia is 28 year old Female who presents virtually for follow-up evaluation of her obesity and related complications to the [facility]ariat[facility] and Met[facility]. In our previous visits we have outlined an individualized lifestyle intervention including a personalized nutrition recommendations and physical activity optimization. Relevant PMH: ADHD not taking Adderall and methylphenidate (per patient she was obligated by Mother to take them before but now she is not taking), s/p foster status, asthma, pre-eclampsia, HTN, snoring (suspects of DARWIN) . Recently, started amitriptyline and hydroxyzine for depression and anxiety Weight History: 09/07/24 385 lbs self reported +26 lbs 05/14/24 359 lbs self reported - initial visit Max wt 359 lbs at age 27 Low wt 250 lbs at age 19 in HS Avg wt 282-283 before Overall goal: 223 lbs Last 3 Encounter Wt Readings: Date: Wt: 07/20/2024 169.6 kg (374 lb) 07/09/2024 169.2 kg (373 lb) 05/14/2024 162.8 kg (359 lb) Interval History: She specifies the following items as new or significant updates since the last appointment: Visit to ED for HTN but not seen (left). Took metformin for 3 weeks, it helped with the appetite at the beginning but then not so much effect in weight and dc due to side effects: abdominal pain, diarrhea, nausea wo vomiting. Gained weight due to depression, loss a friend recently. Recently started hydroxyzine PRN for panic attacks and amitriptyline for depression and migraines. Pending HSA to r/o DARWIN and pending establish care with PCP from prior visit. Returns after 4 months Reports weight is increased since the last visit. Obesity Medications: Metformin. Start Date: 05/24/24 Weight: 359 lbs Effects Discontinued due to side effects abdominal pain and nausea S/E: abdominal pain, diarrhea, upset stomach, some nausea; feeling tired Other AOMs None Diet: Reports quality of diet as healthy. Change in diet Yes; cutting down on FF; trying to eat more whole foods (fruits and vegetables) Exercise: Change in physical activity: No ?Sleep: Change in sleep No Pending HSA ??Stress: other: depressed mood due to losing a friend recently Working with psychiatry Review of Systems: I have confirmed and edited as necessary, the PFSH and ROS obtained by others. Endorses: headache only in the morning, SOB on exertion Denies: chest pain, palpitations, or any other active problem at the time of my evaluation Patient denies personal or family history of MTC or MEN. Patient denies PMH pancreatitis, gallbladder disease, gastroparesis Control and weight loss medications: control method: none; sexually active AOM: Trulicity Comments: All anti-obesity medications are contraindicated in and during ! - If you are actively planning to get , do not take any weight loss medications. - If you are not planning to get during weight loss medications, it is strongly recommended to be on a weight neutral control. - If you are taking oral contraceptives and topiramate, phentermine or tirzepitide, it is recommended to add another control (barrier type) given decrease of efficacy of oral contraceptives on these medications. - If you are on topiramate, phentermine or tirzepitide; it is recommended to do home test before start taking medication then monthly to make sure you are not while on weight loss medications. - Topiramate can cause defects including but not limited to cleft palate. - If you become while on any type of weight loss medications, discontinue immediately and notify your provider. - If you have any questions, please discuss with your providers - Patient understand risks, benefits and side effects; and agree with the plan. History reviewed in [employer] Current Outpatient Medications Medication Sig metFORMIN (GLUCOPHAGE) 500 mg tablet Take 1 tablet by mouth two times a day with meals. Start taking one tablet after breakfast for 1-2 weeks. If tolerated, may increase dose to one tablet after breakfast and one tablet after dinner. No current facility-administered medications for this visit. No past medical history on file. PAST SURGICAL HISTORY Procedure Laterality Date TONSILLECTOMY AND ADENOIDE (more content not included)... [facility] 07-15-2024 Note HNO ID: [id number] Author: SARINA MANDUJANO MD Service: ? Author Type: Physician Type: Progress Notes Filed: 07/15/2024 22:04 Note Text: The patient presents for requested ultrasound. Full report available in the Imaging tab in [employer]. Sarina Mandujano MD [facility] 07-15-2024 History of Presen t illness Narrative The patient presents for requested ultrasound. Full report available in the Imaging tab in [employer]. Sarina Mandujano MD documented in this encounter [facility] 07-09-2024 Note HNO ID: [id number] Author: JOSEY RUSH APRN.CNM Service: ? Author Type: Adobe Maker Type: Progress Notes Filed: 07/13/2024 12:02 Note Text: Lalitha Garcia is a 28 year old female who presents for problem visit for follow up cyst HPI: Presents today for follow up ultrasound. Was seen for ovarian cyst and recommended follow up. Was having irregular bleeding for 5 weeks every day. Was started on norethindrone and bleeding stopped. LMP 07/09/24 Menses 30-42 days apart. Prior to the irregular bleeding cycles were normal every 28-30 days. Seen weight management in 05/16 and has follow up 09/14. Taking Metformin and states it has not helped. Denies any pain otherwise. Not taking anything for control. Was seen at [facility] but do not have records for US or labs. 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 No pertinent past medical history. PAST SURGICAL HISTORY Procedure Laterality Date TONSILLECTOMY AND ADENOIDECTOMY No family history on file. Social History Tobacco Use Smoking status: Every Day Types: Cigarettes Smokeless tobacco: Never Vaping Use Vaping status: Never Used Substance Use Topics Alcohol use: Not Currently Drug use: Yes Types: Marijuana Current Outpatient Medications Medication Sig metFORMIN (GLUCOPHAGE) 500 mg tablet Take 1 tablet by mouth two times a day with meals. Start taking one tablet after breakfast for 1-2 weeks. If tolerated, may increase dose to one tablet after breakfast and one tablet after dinner. No current facility-administered medications for this visit. Allergies As of Date: 07/09/2024 Allergen Noted Reaction LATEX 07/09/2024 Itching Fully Assessed 07/09/2024 REVIEW OF SYSTEMS Abdomen: No bloating, early satiety, indigestion, or increased flatulence. No abdominal pain, nausea, vomiting, diarrhea, or constipation. Bladder: No dysuria, gross hematuria, urinary frequency, urinary urgency, or incontinence. Breast: No breast lumps, nipple d/c, overlying skin changes, redness or skin retraction. Expanded ROS: N/A Allergies and current medication updated:Yes SENSITIVE EXAM: Sensitive exam not performed. EXAM: BP 128/78 Ht 5' 8 (1.73m) Wt 373 lb (169.2kg) LMP 07/09/2024 BMI 56.73 kg/(m2). GENERAL: pleasant, female in no apparent distress HEENT: Normocephalic and atraumatic NECK: Supple and full range of motion DERMATOLOGY: Normal and without lesions CHEST: Normal inspiratory effort NEURO: alert and oriented x3,exam grossly non-focal EXTREMITIES: normal ASSESSMENT AND PLAN: Assessment AND Plan Ovarian cyst, right Orders: PELVIC US [facility]; Future -Request records from [facility] Abnormal uterine bleeding (AUB) Orders: TESTOSTERONE, FREE AND TOTAL, BY EQUILIBRIUM ULTRAFILTRATION MASS SPECTROMETRY; Future LIPID PANEL BASIC; Future INSULIN, TOTAL, SERUM; Future Josey Rush APRN.[facility] 07-09-2024 History of Presen t illness Narrative Lalitha Garcia is a 28 year old female who presents for problem visit for follow up cyst HPI: Presents today for follow up ultrasound. Was seen for ovarian cyst and recommended follow up. Was having irregular bleeding for 5 weeks every day. Was started on norethindrone and bleeding stopped. LMP 07/09/24 Menses 30-42 days apart. Prior to the irregular bleeding cycles were normal every 28-30 days. Seen weight management in 05/16 and has follow up 09/14. Taking Metformin and states it has not helped. Denies any pain otherwise. Not taking anything for control. Was seen at [facility] but do not have records for US or labs. 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 No pertinent past medical history. PAST SURGICAL HISTORY Procedure Laterality Date TONSILLECTOMY & ADENOIDECTOMY <AGE 13 No family history on file. Social History Tobacco Use Smoking status: Every Day Types: Cigarettes Smokeless tobacco: Never Vaping Use Vaping status: Never Used Substance Use Topics Alcohol use: Not Currently Drug use: Yes Types: Marijuana Current Outpatient Medications Medication Sig metFORMIN (GLUCOPHAGE) 500 mg tablet Take 1 tablet by mouth two times a day with meals. Start taking one tablet after breakfast for 1-2 weeks. If tolerated, may increase dose to one tablet after breakfast and one tablet after dinner. No current facility-administered medications for this visit. Allergies As of Date: 07/09/2024 Allergen Noted Reaction LATEX 07/09/2024 Itching Fully Assessed 07/09/2024 REVIEW OF SYSTEMS Abdomen: No bloating, early satiety, indigestion, or increased flatulence. No abdominal pain, nausea, vomiting, diarrhea, or constipation. Bladder: No dysuria, gross hematuria, urinary frequency, urinary urgency, or incontinence. Breast: No breast lumps, nipple d/c, overlying skin changes, redness or skin retraction. Expanded ROS: N/A Allergies and current medication updated:Yes SENSITIVE EXAM: Sensitive exam not performed. EXAM: BP 128/78 Ht 5' 8 (1.73m) Wt 373 lb (169.2kg) LMP 07/09/2024 BMI 56.73 kg/(m^2). GENERAL: pleasant, female in no apparent distress HEENT: Normocephalic and atraumatic NECK: Supple and full range of motion DERMATOLOGY: Normal and without lesions CHEST: Normal inspiratory effort NEURO: alert and oriented x3,exam grossly non-focal EXTREMITIES: normal ASSESSMENT AND PLAN: Assessment & Plan Ovarian cyst, right Orders: PELVIC US WHI; Future -Request records from [facility] Abnormal uterine bleeding (AUB) Orders: TESTOSTERONE, FREE AND TOTAL, BY EQUILIBRIUM ULTRAFILTRATION MASS SPECTROMETRY; Future LIPID PANEL BASIC; Future INSULIN, TOTAL, SERUM; Future Josey Rush APRN.CNM documented in this encounter [facility] 05-14-2024 Instructions Rin Morgan MD - 05/14/2024 1:49 PM EST Plan: -- Based on the severity and resistance of the obesity to more conservative weight loss approaches, I believe a combination of behavioral and pharmacological intervention is the best and most appropriate mcfp therapeutic option. -- We discussed several strategies to track food intake and increase mindfulness around eating. She was counseled on General Nutrition recommendations (unless recommended otherwise by RD or another Physician/Provider): - Avoid skipping meals - Healthy plate: half non-starchy vegetables; one-quarter a lean protein (grilled chicken, fish, meat without fat, eggs, low fat dairy, beans, soy, tofu); one-quarter carbohydrates (whole grain bread/pasta/rice; beans, corn, potato, sweet-potato) - Beverages: water or zero-calorie drinks. Limit or avoid alcoholic drinks - Avoid fried food, pastries, products with added sugar - Limit sodium (salt) intake - May try to track calories in a mobile radha or in a journal - Calorie goal for weight loss: 1262-8003 magdaleno/day for women; 9575-2967 magdaleno/day for men. If your current calorie intake is higher than the goal; start reducing slowly the daily calorie intake by 200 or 300 magdaleno/day every other week until reaching the goal. - If eating snacks; may prefer healthy options including a lean protein (low fat mozzarella cheese stick; hard boiled egg; hummus with vegetables; apple with peanut butter natural without sugar added; protein shake, etc). Avoid sweets, pastries, cookies, ice-cream. --Nutrition Service requested at the BMI -- Sleep study requested given positive symptoms for DARWIN -- Internal medicine service requested to establish care -- Will coordinate with patient to send recent labs by chart or fax to evaluate them. -- Will consider metformin or trulicity if appropriate once reviewed labs. -- Encouraged the patient to improve her physical activity. Although cardiovascular exercise is most beneficial for weight loss initially, we discussed healthy muscle from a combination of resistance training and cardiovascular exercise is the best mcfp plan. An overall goal of 200 minutes per week of exercise has been effective in weight loss and maintenance. -- Follow-up visit for management of above interventions 2-3 months Frozen Meals aim for 200-400 calories, 15-30 grams protein, 5+ grams fiber, < 50 grams Carbohydrate, <600 mg sodium Frozen Meals Calories Protein (grams) Carbs Frontera Bowls 240-320 9-23 33-47 Healthy Choice/Power Bowls 180-350 10-25 20-50 Rachel's (V, GF) 280-400 9- 20-50 Smart Made/Smart Ones 150-320 14-26 16-50 Lean Cuisine 250-410 10-20 15-50 Eating Well 240-360 15-25 25-40 LUVO planted 260-430 10-20 16-55 Other Frozen meals: Kashi, Sweet Earth, Stucco Plasterer Yakov's Reduced Guilt, EVOLDoroteo's Delights, Dr. Cho's Protein Drinks Calories Protein (grams) Sugars (grams) EAS Advant Edge Carb Control 110 17 1 Isopure Clear Zero Carb 160 40 0 Muscle Milk light 100-160 15-20 0-1 PhyFlex Networks Core Power 170 26 5 Orgain Protein Shake* 150 26 2 Premier Protein 160 30 1 Evolve (Vegan)* 160 20 5 Other Protein Shakes: Pure Protein, Ensure High Protein; *Offers plant based, dairy free option Protein Powders Calories (per scoop) Protein (g) Sugars (g) Isopure Zero Carb & Unflavored 105 25 0 Production Line Welder Whey Protein 100 18 3 Optimum Nutrition 100% whey 120-130 24 1-2 EAS 100% Whey or Soy 120 23 1 Genisoy Protein powder* 110 25 0 Quest 100 23 1 Unger One Protein powder* 130 25 1 Orgain Protein Powder* 150-160 21 0-1 *Offers plant based, dairy free option Protein Bars Calories Protein (g) Sugars (g) Quest (GF) 190 20 0-1 Power Crunch 140-240 13-20 0-5 NuGo Slim (v) 180 17 1 Simply protein 150 15 1 Orgain Bar 140 10 4 Pure Protein 200 20 2 Think Thin (GF) 230 20 0-1 Yovani Bakery Paleo (GF) 180-190 20 2 Oh Yeah (one) (GF) 180-200 20 1 Oatmega 190 14 5 Other Protein bars: RX bar, Orgain, Fit Donna, Protein One, Trinh protein bar; *GF= Gluten-Free; V= vegan 30 High Protein Snacks 1. Jerky 2. [place] mix 3. [place]ola roll-ups 4. Hebrew yogurt parfait 5. Veggies and yogurt dip 6. Tuna 7. Hard-boiled eggs 8. Peanut butter celery sticks 9. No-bake energy bites 10. Cheese slices/ Cheese Stick 11. Handful of almonds 12. Roasted chickpeas 13. Hummus and veggies 14. Cottage Cheese 15. Apple with peanut butter 16. Beef sticks (Grass-fed, natural ingredients) 17. Protein bars 18. Canned [place] 19. Boy pudding 20. Homemade granola - rolled oats, nuts, and a sweetener like honey- 1/4 cup serving 21. Pumpkin seeds 22. Nut butter 23. Protein shakes 24. Edamame 25. Avocado and chicken salad 26. Fruit and nut bars - natural ingredients without added sugar. 27. Lentil salad 28. Overnight oatmeal 29. Egg muffins 30. Cheesy popcorn documented in this encounter [facility] 05-14-2024 History of Presen t illness Narrative Images from the original note were not included. BMI Obesity Medicine Consult Virtual Visit 05/14/24 I have communicated my name and active licensure. The patient's identity and physical location were verified at the time of this visit. Either the patient or their legal videotape sales representative has been informed of the risks and benefits of -- and alternatives to -- treatment through a remote evaluation and consents to proceed with the evaluation remotely. Consultation requested by SELF for an opinion regarding Obesity. My final recommendations will be communicated back to the requesting physician by way of shared Medical record or letter to requesting physician via [place] mail. Patient location: work Patient Summary: Lalitha Garcia is a 28 year old female with obesity who presents to the [facility] for an initial evaluation of her obesity and is interested in behavioral and pharmacological weight loss approaches. Primary reason for wanting obesity treatment: toddler at home and wants to be healthier for her daughter Overall goal: 223 lbs Relevant PMH: ADHD not taking Adderall and methylphenidate (per patient she was obligated by Mother to take them before but now she is not taking), s/p foster status, asthma, pre-eclampsia, HTN, snoring (suspects of DARWIN) Weight History: She reports a family history of obesity and early onset weight gain. She states her weight gain is related to the following factors, including genetic component and , medications (depo shot); untreated ADHD, marihuana use. In middle school 180 lbs; in HS senior year 225 lbs; after 293-359 lbs. Initially, patient was interested in surgery and met with psychology. Now, she would like to try AOM first, possibly injectables if covered. Initial wt 359 lbs at age 28 - self reported Max wt 359 lbs at age 27 Low wt 250 lbs at age 19 in HS Avg wt 282-283 before Weight Graph: (please see graph scanned in chart) Obesigenic Medications: YES Depo provera IM every 3 months (for 4 years, last shot 2021) Diet: Patient reports varies diet is not the best Characterization of diet:Unstructured, excessive cravings, and evening snacking; Fast Food District Representative of impaired eating habits:boredom Eating Disorder night eating (more calories after dinner, about 10pm, skips breakfast, 5 times per week for more than 3 months) Diet History: Past weight loss attempts? self-directed and exercise program. No AOM Dietary Recall: Breakfast: skips. If eats something: cereal and banana Lunch: fish sandwich with medium or large fries from [employer] + frappe Dinner: PB sandwiches (2) with banana and milk, fish sandwich [employer] again and V8 fruit juice Snacks in the evening: smart pop-corn, nuts, apple sauce, sausages, PB sandwich, random snacks. (Works at night and eats random snacks overnight) Beverages: water, flavored water wo calories, coke 3-32 oz/day, V8 fruit juice. Alcohol 1 drink/month Exercise: Regular exercise: No Strength/resistance exercise:No Barriers to regular exercise? None Work-related activity:Active. She has a gym membership but not going now Smokes marihuana 3/week and tobacco daily ?Sleep: Duration: 4 hours. DARWIN NO ; CPAP NO Quality:poor, Few awakenings :Sleep-wake cycle disruption:Yes STOP BANG 1. Snoring : Do you snore loudly (louder than talking, through closed doors)? YES 2. Tired : Do you often feel tired, fatigued, or sleepy during daytime? YES 3. Observed : Has anyone observed you stop breathing during sleep?YES 4. Blood Pressure: treated for high blood pressure?NO 5. BMI : BMI more than 35 kg/m2? YES 6. Age : Age over 50 yr old? NO 7. Neck circumference: Neck circumference greater than 40 cm? N/a 8. Gender : Gender male? NO STOP BANG Score 4 , intermediate ??Stress: Some, Cause:Personal Obesity Related Comorbidities: Prior Weight Loss Surgery:No There is no problem list on file for this patient. No past surgical history on file. Obesity ROS/ FHx GEN: Fatigue:Yes CV: h/o palpitations/cardiac arrhythmia, CP:No. PULM: Asthma:Yes GI: GERD:Yes; Gallstones: No; Fatty liver disease:No; H/o hernia:Yes umbilical hernia, it hurts when bloated; not interested in evaluation MSK: Joint Pain:Yes : Nephrolithiasis:No; Stress incontinence:No Symptoms of PCOS(women):No No history of thyroid disorder,diabetes,cold intolerance,heat,intolerance,po lydypsia NEURO: Migraines/ANGUIANO:Yes; H/o seizures: No Glaucoma:No; Cataracts No Symptoms of pseudotumor cerebri:No The physical systems reviewed reveal no pathological symptoms that are pertinent to this visit Feels anxiety while smoking marihuana Patient denies personal or family history of MTC or MEN. Patient denies PMH pancreatitis, gallbladder disease, gastroparesis. Denies kidney stones or glaucoma. Control and weight loss medications: control method: none; sexually active AOM: metformin or trulicity if covered. Comments: - All anti-obesity medications are contraindicated in and during - If you are actively planning to get , do not take any weight loss medications. - If you are not planning to get during weight loss medications, it is strongly recommended to be on a weight neutral control. - If you are taking oral contraceptives and topiramate, phentermine or tirzepitide, it is recommended to add another control (barrier type) given decrease of efficacy of oral contraceptives on these medications. - If you are on topiramate, phentermine or tirzepitide; it is recommended to do home test before start taking medication then monthly to make sure you are not while on weight loss medications. - Topiramate can cause defects including but not limited to cleft palate. - If you become while on any type of weight loss medications, discontinue immediately and notify your provider. - If you have any questions, please discuss with your providers - Patient understand risks, benefits and side effects; and agree with the plan. No family history on file. 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 General: normal appearance limited to the screen Respiratory: no evidence of acute distress; can speak full sentences Neuro: alert and oriented. No evidence of acute neuro-deficits at the time of my evaluation Results: reviewed with the patient No visits with results within 3 Month(s) from this visit. Latest known visit with results is: Admission on 12/27/2023, Discharged on 12/27/2023 Component Date Value Ref Range Status Urine-ED(POC) 12/27/2023 Negative Final Ref Range Ckd Preg Ur-ED(POC) 12/27/2023 Yes Final Quality Check Preg Ur-ED(POC) 12/27/2023 OK Final Labs from OSH in April 2024 She had labs and CT for chest pain, apparently secondary to anxiety. Patient to send over results. Impression: Lalitha Garcia is a 28 year old female with Class III obesity (Body mass index is 53.17 kg/m .) who has early onset obesity with gradual weight gain. The causes of her obesity are multifactorial, biological, psychological and social and environmental. Specific factors include exposure to weight gain promoting medication(s) , increased consumption of high calorie/process foods, irregular eating patterns , suboptimal physical activity, inadequate sleep duration, poor sleep quality, circadian disruption, and post weight retention. Relevant PMH: ADHD not taking Adderall and methylphenidate (per patient she was obligated by Mother to take them before but now she is not taking), s/p foster status, asthma, pre-eclampsia, HTN, snoring (suspects of DARWIN) She has unknown significant weight-related medical comorbidities which increase her cardiovascular mortality risk. There unknown additional metabolic obesity complications. Other medical conditions as above. Regarding her lifestyle, as above, she has several behavioral contributors; her physical activity is suboptimal. Overall, it is clear that her quality of life is moderately compromised by her weight. It is likely a combination of weight loss therapies will be needed. She appears motivated today. Today, we discussed healthy lifestyle including diet and physical activity. To support weight loss, patient is interested in anti-obesity medication with injectables if covered or metformin. We reviewed risks, benefits and side effects. Expected weight loss 1-2 lbs avg per week. However, we discussed need to get recent labs results prior to order a medication; will coordinate either mychart or fax. Additionally, will order a sleep study given DARWIN symptoms and consult to IM to establish care with a PCP. I am concern about untreated ADHD; patient not interested in psychiatry consult at this time but agreed with IM. Plan: -- Based on the severity and resistance of the obesity to more conservative weight loss approaches, I believe a combination of behavioral and pharmacological intervention is the best and most appropriate intermediate project manager therapeutic option. -- We discussed several strategies to track food intake and increase mindfulness around eating. She was counseled on General Nutrition recommendations (unless recommended otherwise by RD or another Physician/Provider): - Avoid skipping meals - Healthy plate: half non-starchy vegetables; one-quarter a lean protein (grilled chicken, fish, meat without fat, eggs, low fat dairy, beans, soy, tofu); one-quarter carbohydrates (whole grain bread/pasta/rice; beans, corn, potato, sweet-potato) - Beverages: water or zero-calorie drinks. Limit or avoid alcoholic drinks - Avoid fried food, pastries, products with added sugar - Limit sodium (salt) intake - May try to track calories in a mobile radha or in a journal - Calorie goal for weight loss: 2493-0750 magdaleno/day for women; 1604-2803 magdaleno/day for men. If your current calorie intake is higher than the goal; start reducing slowly the daily calorie intake by 200 or 300 magdaleno/day every other week until reaching the goal. - If eating snacks; may prefer healthy options including a lean protein (low fat mozzarella cheese stick; hard boiled egg; hummus with vegetables; apple with peanut butter natural without sugar added; protein shake, etc). Avoid sweets, pastries, cookies, ice-cream. --Nutrition Service requested at the BMI -- Sleep study requested given positive symptoms for DARWIN -- Internal medicine service requested to establish care -- Will coordinate with patient to send recent labs by chart or fax to evaluate them. -- Will consider metformin or trulicity if appropriate once reviewed labs. -- Advised to decrease marihuana due to anxiety and possibly increasing appetite along with lack of sleep -- Encouraged the patient to improve her physical activity. Although cardiovascular exercise is most beneficial for weight loss initially, we discussed healthy muscle from a combination of resistance training and cardiovascular exercise is the best intermediate project manager plan. An overall goal of 200 minutes per week of exercise has been effective in weight loss and maintenance. -- Follow-up visit for management of above interventions 2-3 months The plan was discussed in detail with the patient; risks/benefits; side effect and other options were explained; all questions were answered. Patient expressed agreement with the plan. Follow up: 3 months or earlier if needed. Should you have any questions, please do not hesitate to contact me. Thank you, Rin Morgan MD [facility] [place] / General Surgery I spent a total of 61 minutes on the date of the service which included preparing to see the patient, [id number] patient care, completing clinical documentation, obtaining and/or reviewing separately obtained history, performing a medically appropriate examination, counseling and educating the patient/family/caregiver, and ordering medications, tests, or procedures. If you were prescribed a medication today, please allow a minimum of 2 weeks for this to be completed. One of our Obesity Medicine support members will reach out to you once this is completed or if they need additional information. Additional inquiries on this request can delay this process. Please keep in mind: We understand that many medications are effective for weight loss and treating other conditions related to obesity. However, insurance coverage isn't always guaranteed. If your medication is denied due to plan exclusions or not meeting coverage criteria, we won't pursue an appeal. documented in this encounter [facility] 05-14-2024 Note HNO ID: [id number] Author: RIN MORGAN MD Service: ? Author Type: Physician Type: Progress Notes Filed: 05/24/2024 11:10 Note Text: BMI Obesity Medicine Consult Virtual Visit 05/14/24 I have communicated my name and active licensure. The patient's identity and physical location were verified at the time of this visit. Either the patient or their legal videotape sales representative has been informed of the risks and benefits of -- and alternatives to -- treatment through a remote evaluation and consents to proceed with the evaluation remotely. Consultation requested by SELF for an opinion regarding Obesity. My final recommendations will be communicated back to the requesting physician by way of shared Medical record or letter to requesting physician via [place] mail. Patient location: work Patient Summary: Lalitha Garcia is a 28 year old female with obesity who presents to the [facility] for an initial evaluation of her obesity and is interested in behavioral and pharmacological weight loss approaches. Primary reason for wanting obesity treatment: toddler at home and wants to be healthier for her daughter Overall goal: 223 lbs Relevant PMH: ADHD not taking Adderall and methylphenidate (per patient she was obligated by Mother to take them before but now she is not taking), s/p foster status, asthma, pre-eclampsia, HTN, snoring (suspects of DARWIN) Weight History: She reports a family history of obesity and early onset weight gain. She states her weight gain is related to the following factors, including genetic component and , medications (depo shot); untreated ADHD, marihuana use. In middle school 180 lbs; in HS senior year 225 lbs; after 293-359 lbs. Initially, patient was interested in surgery and met with psychology. Now, she would like to try AOM first, possibly injectables if covered. Initial wt 359 lbs at age 28 - self reported Max wt 359 lbs at age 27 Low wt 250 lbs at age 19 in HS Avg wt 282-283 before Weight Graph: (please see graph scanned in chart) Obesigenic Medications: YES Depo provera IM every 3 months (for 4 years, last shot 2021) Diet: Patient reports varies diet is not the best Characterization of diet:Unstructured, excessive cravings, and evening snacking; Fast Food District Representative of impaired eating habits:boredom Eating Disorder night eating (more calories after dinner, about 10pm, skips breakfast, 5 times per week for more than 3 months) Diet History: Past weight loss attempts? self-directed and exercise program. No AOM Dietary Recall: Breakfast: skips. If eats something: cereal and banana Lunch: fish sandwich with medium or large fries from [employer] + frappe Dinner: PB sandwiches (2) with banana and milk, fish sandwich [employer] again and V8 fruit juice Snacks in the evening: smart pop-corn, nuts, apple sauce, sausages, PB sandwich, random snacks. (Works at night and eats random snacks overnight) Beverages: water, flavored water wo calories, coke 3-32 oz/day, V8 fruit juice. Alcohol 1 drink/month Exercise: Regular exercise: No Strength/resistance exercise:No Barriers to regular exercise? None Work-related activity:Active. She has a gym membership but not going now Smokes marihuana 3/week and tobacco daily ?Sleep: Duration: 4 hours. DARWIN NO ; CPAP NO Quality:poor, Few awakenings :Sleep-wake cycle disruption:Yes STOP BANG 1. Snoring : Do you snore loudly (louder than talking, through closed doors)? YES 2. Tired : Do you often feel tired, fatigued, or sleepy during daytime? YES 3. Observed : Has anyone observed you stop breathing during sleep?YES 4. Blood Pressure: treated for high blood pressure?NO 5. BMI : BMI more than 35 kg/m2? YES 6. Age : Age over 50 yr old? NO 7. Neck circumference: Neck circumference greater than 40 cm? N/a 8. Gender : Gender male? NO STOP BANG Score 4 , intermediate ??Stress: Some, Cause:Personal Obesity Related Comorbidities: Prior Weight Loss Surgery:No There is no problem list on file for this patient. No past surgical history on file. Obesity ROS/ FHx GEN: Fatigue:Yes CV: h/o palpitations/cardiac arrhythmia, CP:No. PULM: Asthma:Yes GI: GERD:Yes; Gallstones: No; Fatty liver disease:No; H/o hernia:Yes umbilical hernia, it hurts when bloated; not interested in evaluation MSK: Joint Pain:Yes : Nephrolithiasis:No; Stress incontinence:No Symptoms of PCOS(women):No No history of thyroid disorder,diabetes,cold intolerance,heat,intolerance,po lydypsia NEURO: Migraines/ANGUIANO:Yes; H/o seizures: No Glaucoma:No; Cataracts No Symptoms of pseudotumor cerebri:No The physical systems reviewed reveal no pathological symptoms that are pertinent to this visit Feels anxiety while smoking marihuana Patient denies personal or family history of MTC or MEN. Patient denies PMH pancreatitis, gallbladder disease, gastroparesis. Den (more content not included)... [facility] 05-07-2024 Note HNO ID: [id number] Author: GWEN ZHANG, PhD Service: ? Author Type: Psychologist Type: Progress Notes Filed: 05/07/2024 12:07 Note Text: Lalitha Garcia [id number] May 07, 2024 [facility] M61 Psychology Orientation/ Welcome Group CPT: NO CHARGE (informational seminar/no treatment provided) 1:00-2:00pm Psychology Orientation Seminar Patients attended an informational seminar as their first step in the BMI program. Patients provided verbal consent related to the use of virtual visits and were reminded of the limits of confidentiality. Provided basic information about bariatric surgery procedures, benefits, lifestyle changes needed, and psychological risks. Patients were oriented to the multidisciplinary process, role of psychology in the bariatric program, and various behavioral health services provided. Reviewed psychosocial adjustment issues common after surgery, and how such problems can be prevented with pre- and post-op care. Also discussed risks of alcohol, nicotine, and marijuana after surgery and reviewed requirements for cessation and toxicology screenings. Patients were encouraged to seek or intensify mental health treatment if needed, and provided with resources to find mental health care. Lastly, briefly reviewed benefits of food diaries and encouraged patients to begin identifying barriers to weight management by tracking intake. Orders for referrals and toxicology screens were placed if requested by the patient. Following the session, patients were provided with a copy of the presentation slides, a list of recommended readings including a link to the BMI manual, and a mental health documentation form to give to mental health providers, if applicable. Orders placed by patient request: NONE Plan: Patient to be scheduled for an individual psychology consultation visit. Gwen Zhang, Ph.D. Psychologist [facility] 05-07-2024 History of Presen t illness Narrative Lalitha Garcia [id number] May 07, 2024 [facility] and [facility] M61 Psychology Orientation/ Welcome Group CPT: NO CHARGE (informational seminar/no treatment provided) 1:00-2:00pm Psychology Orientation Seminar Patients attended an informational seminar as their first step in the BMI program. Patients provided verbal consent related to the use of virtual visits and were reminded of the limits of confidentiality. Provided basic information about bariatric surgery procedures, benefits, lifestyle changes needed, and psychological risks. Patients were oriented to the multidisciplinary process, role of psychology in the bariatric program, and various behavioral health services provided. Reviewed psychosocial adjustment issues common after surgery, and how such problems can be prevented with pre- and post-op care. Also discussed risks of alcohol, nicotine, and marijuana after surgery and reviewed requirements for cessation and toxicology screenings. Patients were encouraged to seek or intensify mental health treatment if needed, and provided with resources to find mental health care. Lastly, briefly reviewed benefits of food diaries and encouraged patients to begin identifying barriers to weight management by tracking intake. Orders for referrals and toxicology screens were placed if requested by the patient. Following the session, patients were provided with a copy of the presentation slides, a list of recommended readings including a link to the BMI manual, and a mental health documentation form to give to mental health providers, if applicable. Orders placed by patient request: NONE Plan: Patient to be scheduled for an individual psychology consultation visit. Gwen Zhang, Ph.D. Psychologist documented in this encounter [facility] 04-30-2024 Note HNO ID: [id number] Author: GWEN ZHANG, PhD Service: ? Author Type: Psychologist Type: Progress Notes Filed: 04/30/2024 12:22 Note Text: [facility] Bariat[facility] Behavioral Services Progress Note April 30, 2024 Patient was a no-show for the Psychology Orientation/Welcome group. If she reschedules, it should be within another Welcome group. Gwen Zhang, Ph.D. Psychologist [facility] 04-30-2024 History of Presen t illness Narrative [facility] Bariat[facility] Behavioral Services Progress Note April 30, 2024 Patient was a no-show for the Psychology Orientation/Welcome group. If she reschedules, it should be within another Welcome group. Gwen Zhang, Ph.D. Psychologist documented in this encounter [facility] 09-23-2022 Hospital Discharg e instructions Patient Education 09/23/2022 19:54:59 Foot Sprain Foot Sprain A sprain is a stretching or tearing of the ligaments that hold a joint together. There are usually no broken bones. Sprains generally take from 3 to 6 weeks to heal. A sprain may be treated with a splint, walking cast, or special boot. Mild sprains may not need any additional support. Home care The following guidelines will help you care for your injury at home: Keep your leg elevated when sitting or lying down. This is very important during the first 48 hours to reduce swelling. Stay off the injured foot as much as possible until you can walk on it without pain. If needed, you may use crutches during the first week for this purpose. Crutches can be rented at many pharmacies or surgical/orthopedic supply stores. You may be given a cast shoe to wear to prevent movement in your foot. If not, you can use a sandal or any shoe that does not put pressure on the injured area until the swelling and pain go away. If using a sandal, be careful not to hit your foot against anything, since another injury could make the sprain worse. Apply an ice pack over the injured area for 15 to 20 minutes every 3 to 6 hours. You should do this for the first 24 to 48 hours. You can make an ice pack by filling a plastic bag that seals at the top with ice cubes and then wrapping it with a thin towel. Continue to use ice packs for relief of pain and swelling as needed. As the ice melts, try not to get the wrap, splint, or cast wet. After 48 hours, apply heat from a warm shower or bath for 20 minutes several times daily. Alternating ice and heat may also be helpful. You may use laja-cqh-jmbaxrb pain medicine to control pain, unless another medicine was prescribed. If you have chronic liver or kidney disease or ever had a stomach ulcer or gastrointestinal bleeding, talk with your healthcare provider before using these medicines. If you were given a splint or cast, keep it dry. Bathe with your splint or cast well out of the water, protected with 2 large plastic bags, sealed with tape or rubber-bands at the top end. If a fiberglass splint or cast gets wet, you can dry it with a natural sciences department chair on cool setting. You may return to sports after healing, when you can run without pain. Follow-up care Follow up with your healthcare provider as directed. Sometimes fractures don t show up on the first X-ray. Bruises and sprains can sometimes hurt as much as a fracture. These injuries can take time to heal completely. If your symptoms don t improve or they get worse, talk with your healthcare provider. You may need a repeat X-ray or other tests. When to seek medical advice Call your healthcare provider right away if any of these occur: The plaster cast or splint gets wet or soft The fiberglass cast or splint gets wet and does not dry for 24 hours Pain or swelling increases, or redness appears A bad odor comes from within the cast Fever of 100.4 F (38 C) or above lasting for 24 to 48 hours, or as advised Chills Toes on the injured foot become cold, blue, numb, or tingly [id number] [employer]. [address] [place] [address]. All rights reserved. This information is not intended as a substitute for professional medical care. Always follow your healthcare professional's instructions. Follow Up Care 09/23/2022 15:24:57 With:CHRIS LECHUGA DO, Orthopedic Address: [address] [place] [address] [place] [address] [phone] When:2-4 days With:Call [facility] Pt. Refferral [phone] Address:Unknown When:2-4 days [facility] 09-23-2022 Emergency department Discharge summary Discharge Instructions Thank you for allowing [facility] to assist you with your healthcare needs. The following is important discharge information regarding your hospital visit. Diagnosis from Today's Visit Foot injury - Minor What to Do Next Instructions from Your Care Team Discharge Home Equipment - Ordered -- Post-op shoe, 99 month(s), 09/23/22 19:54:00 EDT Post Acute Orders No qualifying data available. You Need to Schedule the Following Appointments Follow Up with CHRIS LECHUGA DO, Orthopedic When Within 2-4 days Where: [address] [facility] [place] [address]- [phone] Follow Up with Call [facility] Pt. Refferral [phone] When Within 2-4 days Allergies Bee Stings Latex Medications Please ask your primary doctor or pharmacist before taking any other medication not listed, including over the counter drugs, herbal medications, vitamins and or supplements as they may interact with your home medications. What How Much When Instructions Last Dose Unchanged albuterol (albuterol MDI (90 mcg/ inh) CFC free inhalation aerosol) 1 puff(s) by inhalation Every 4 hours as needed for as needed for wheezing Unchanged DME (Blood Pressure Cuff) See instructions Check and Log Blood Pressure Daily Unchanged docusate (docusate sodium 100 mg oral tablet) 1 tab(s) by mouth Two (2) times a day Unchanged famotidine (Pepcid 20 mg oral tablet) 1 tab(s) by mouth Once a day Unchanged ibuprofen (ibuprofen 600 mg oral tablet) 1 tab(s) by mouth Every 6 hours Duration: 30 Days Take with food or milk. Unchanged labetalol (labetalol 200 mg oral tablet) 2 tab(s) by mouth Two (2) times a day Unchanged multivitamin, ( 19 ([place]) oral tablet, chewable) 1 tab(s) Chewed Once a day Unchanged NIFEdipine (Procardia XL 30 mg oral tablet, extended release) 1 tab(s) by mouth Once a day Unchanged norethindrone (norethindrone 0.35 mg oral tablet) 1 tab(s) by mouth Once a day Unchanged ondansetron (Zofran 4 mg oral tablet) 1 tab(s) by mouth Every 4 hours Duration: 5 Days Please take this list to your next doctor s visit. Bring all medications you take, including over the counter medications, herbals and other supplements with you to your doctor s visit. Patients and families are reminded to discard old lists and to update any records with all medication providers or retail pharmacies. Education Materials Foot Sprain A sprain is a stretching or tearing of the ligaments that hold a joint together. There are usually no broken bones. Sprains generally take from 3 to 6 weeks to heal. A sprain may be treated with a splint, walking cast, or special boot. Mild sprains may not need any additional support. Home care The following guidelines will help you care for your injury at home: Keep your leg elevated when sitting or lying down. This is very important during the first 48 hours to reduce swelling. Stay off the injured foot as much as possible until you can walk on it without pain. If needed, you may use crutches during the first week for this purpose. Crutches can be rented at many pharmacies or surgical/orthopedic supply stores. You may be given a cast shoe to wear to prevent movement in your foot. If not, you can use a sandal or any shoe that does not put pressure on the injured area until the swelling and pain go away. If using a sandal, be careful not to hit your foot against anything, since another injury could make the sprain worse. Apply an ice pack over the injured area for 15 to 20 minutes every 3 to 6 hours. You should do this for the first 24 to 48 hours. You can make an ice pack by filling a plastic bag that seals at the top with ice cubes and then wrapping it with a thin towel. Continue to use ice packs for relief of pain and swelling as needed. As the ice melts, try not to get the wrap, splint, or cast wet. After 48 hours, apply heat from a warm shower or bath for 20 minutes several times daily. Alternating ice and heat may also be helpful. You may use fvma-bmg-lzzbyed pain medicine to control pain, unless another medicine was prescribed. If you have chronic liver or kidney disease or ever had a stomach ulcer or gastrointestinal bleeding, talk with your healthcare provider before using these medicines. If you were given a splint or cast, keep it dry. Bathe with your splint or cast well out of the water, protected with 2 large plastic bags, sealed with tape or rubber-bands at the top end. If a fiberglass splint or cast gets wet, you can dry it with a natural sciences department chair on cool setting. You may return to sports after healing, when you can run without pain. Follow-up care Follow up with your healthcare provider as directed. Sometimes fractures don t show up on the first X-ray. Bruises and sprains can sometimes hurt as much as a fracture. These injuries can take time to heal completely. If your symptoms don t improve or they get worse, talk with your healthcare provider. You may need a repeat X-ray or other tests. When to seek medical advice Call your healthcare provider right away if any of these occur: The plaster cast or splint gets wet or soft The fiberglass cast or splint gets wet and does not dry for 24 hours Pain or swelling increases, or redness appears A bad odor comes from within the cast Fever of 100.4 F (38 C) or above lasting for 24 to 48 hours, or as advised Chills Toes on the injured foot become cold, blue, numb, or tingly [id number] [employer]. [address] [place] [address]. All rights reserved. This information is not intended as a substitute for professional medical care. Always follow your healthcare professional's instructions. Additional Information VACCINATE! IT SAVES LIVES! Members of the community who have not yet received the COVID-19 vaccine and would like to receive it can visit one of [facility] vaccine clinics. There are many vaccine clinic locations within the [facility]. For locations and available times, please visit www.gettheshot.coronavirus.[place] .gov/. It is important to note that some COVID mobile vaccine clinics are held outdoors and may be canceled in rainy or stormy conditions. To learn more about pediatric vaccinations (ages 5-11), we invite you to visit the [facility] webpage. https://www.[facility].org/ pages/5147-Irnlh-Ogeiqkxkodg-Fr qitzjqxv-Eoymk-Ppxxyfqdt.html To learn more about the COVID-19 vaccine, we invite you to visit the CDC website for a list of frequently asked questions. https://www.cdc.gov/coronavirus /2019-ncov/vaccines/faq.html [facility] Patient Portal Access Instructions: Stay connected with your healthcare team and access your personal medical information anytime with the [facility] Patient Portal. If you would like a full copy of your medical records please contact the [facility] Medical Records Department Friday through Friday between 8a.m. and 4:30p.m. Please follow the directions below to access the portal: 1.Access the email account you provided upon registration to the [facility].2.Look for an invitation email from [facility].3.Open the email and access the invitation link: Accept Invitation to [place] [facility].Fill in the required campos to create your account. Sign into [email or web address] with your username and password that you created in the above steps to stay up to date. You can then view a summary of results, a summary of your visits, and the ability to download your summaries to your computer or send the information securely to a physician. Remember that your healthcare information is confidential, so carefully consider who you will allow to register on the [facility] Patient Portal for access to your information. You can also access the [facility] Patient Portal on the [employer]. Simply click on Health Records under Health Data and then click on the [employer] logo. HOW TO SAFELY DISPOSE OF PRESCRIPTION MEDICATIONS Please use one of the following methods to safely dispose of your unused medications. 1.Use a drug disposal kit: the drug disposal pouch allows you to safely discard your old and unused drugs. Ask your nurse to give you one when you are discharged.2.Visit a local take-back location: Many local pharmacies and police departments have programs that collect old and unwanted prescription drugs. Call your local pharmacy or go to http://SpanDeX.[place]/8J1Yb0m to find one close to you.3.Make use of household items: Use cat litter or old coffee grounds to dispose medications if other options are not available. Mix your drugs with these household products, seal them in an airtight container and throw it into the garbage. Call [facility]: [phone] to be sure your drugs can be disposed of in this way. Some medicines may require a different approach.4.Never flush your medications down the toilet. IF YOU HAVE BEEN PRESCRIBED AN OPIOIDS FOR PAIN If you have been prescribed an opioid (such as hydrocodone, oxycodone or morphine), it is critical to understand the possible side effects and risks of opioid pain medications. Even when taken as directed, opioids can have several side effects including: Tolerance, meaning you might need to take more of a medication for the same pain relief. Nausea, vomiting and/or constipation. Sleepiness, dizziness, dry mouth, confusion, depression or itching. Physical dependence, meaning you have withdrawal symptoms when a medication is stopped ? this can develop within a few days. KNOW YOUR RESPONSIBILITIES It is important to know exactly how much and how often to take the opioid pain medications you are prescribed. Never take opioids in higher amounts or more often than prescribed. Do not combine opioids with alcohol or other drugs that cause drowsiness, such as benzodiazepines, also known as benzos, including diazepam and alprazolam, muscle relaxants or sleep aids. Never sell or share prescription opioids. This is illegal. Store opioids in a secure place and out of reach of others (including children, family, friends and visitors). The last page(s) of this document has been signed and retained as a CHART COPY Signatures Patient Education Materials Foot Sprain Medication Leaflets My discharge plan and instructions have been reviewed and explained to me and I,RADHA LALITHA M understand my current condition and have read and understand these discharge instructions. I have received a written copy of the plan/instructions. If I have questions, I am aware that I should contact my doctor. Patient/Customer Service Supervisor Signature: Date/Time: Relationship to Patient: Witness Name/Signature: Date/Time: [facility] 09-23-2022 Note ORIGINAL HISTORY: Pain, fall previous day COMPARISON: No FINDINGS: There are no acute fractures or dislocations. Alignment is within normal limits. The soft tissues are unremarkable. IMPRESSION: Normal examination. Interpreted by: Katerin Ya MD Preliminary Report By: Katerin Ya MD Electronically signed By Katerin Ya MD Dictated Date: 09/23/2022 4:37:57 PM Prelim Date: 09/23/2022 4:38:35 PM Sign Date: 09/23/2022 4:38:35 PM Ordering Provider: [facility] 09-23-2022 Note ORIGINAL HISTORY: Pain, fall previous day COMPARISON: No FINDINGS: There are no acute fractures or dislocations. Alignment is within normal limits. The soft tissues are unremarkable. IMPRESSION: Normal examination. Interpreted by: Katerin Ya MD Preliminary Report By: Katerin Ya MD Electronically signed By Katerin Ya MD Dictated Date: 09/23/2022 4:37:57 PM Prelim Date: 09/23/2022 4:38:35 PM Sign Date: 09/23/2022 4:38:35 PM Ordering Provider: [facility] 03-30-2022 Note . MICRO - Microbiology PROCEDURE: Urine Culture [*1] SOURCE: Urine, Clean Catch BODY SITE: COLLECTED DATE/TIME: 03/28/2022 18:00 EDT RECEIVED DATE/TIME: 03/28/2022 18:32 EDT START DATE/TIME: 03/28/2022 18:32 EDT FREE TEXT SOURCE: FINAL REPORTS Final Report [] Verified Date/Time/Personnel: 03/30/2022 08:48 EDT 10,000 - 50,000 cfu/ml Multiple bacterial morphotypes present. Probable Contamination. Suggest recollection if clinically indicated. PRELIMINARY REPORTS Preliminary Report [] Verified Date/Time/Personnel: 03/29/2022 09:34 EDT Culture results pending. Performing Locations *1: This test was performed at: [facility], [address] [place] [address], [id number] , [facility] ([place] 03-20-2022 Note . MICRO - Microbiology PROCEDURE: Urine Culture [*1] SOURCE: Urine, Clean Catch BODY SITE: COLLECTED DATE/TIME: 03/19/2022 12:41 EDT RECEIVED DATE/TIME: 03/19/2022 13:05 EDT START DATE/TIME: 03/19/2022 13:05 EDT FREE TEXT SOURCE: FINAL REPORTS Final Report [] Verified Date/Time/Personnel: 03/20/2022 12:25 EDT 10,000 - 50,000 cfu/ml Mixed growth consistent with normal urogenital steph. Performing Locations *1: This test was performed at: [address], [address] , [facility] ([place]) 03-13-2022 Note . MICRO - Microbiology PROCEDURE: Urine Culture [*1] SOURCE: Urine, Clean Catch BODY SITE: COLLECTED DATE/TIME: 03/11/2022 14:59 EDT RECEIVED DATE/TIME: 03/11/2022 16:00 EDT START DATE/TIME: 03/11/2022 16:00 EDT FREE TEXT SOURCE: FINAL REPORTS Final Report [] Verified Date/Time/Personnel: 03/13/2022 07:40 EDT <10,000 cfu/ml. No Significant growth. Sensitivity not indicated. PRELIMINARY REPORTS Preliminary Report [] Verified Date/Time/Personnel: 03/12/2022 09:23 EDT No growth to date Performing Locations *1: This test was performed at: [address], [address] , [facility] ([place]) 03-12-2022 Hospital Discharg e instructions Patient Education 03/12/2022 14:58:10 7 - Labor and Delivery Outpatient Instructions ([facility]) [facility] AND DELIVERY OUTPATIENT HOME-GOING INSTRUCTIONS _X_ You are to follow up with your physician as scheduled. ACTIVITY ___ Bedrest _X__Activity as tolerated ___ No work/school for ___ days. ___Other PRESCRIPTION GIVEN ___Yes NAUSEA/VOMITING ___ Take small, frequent amounts of clear liquids. Avoid fruit juices and milk. ___ Increase fluid intake to a minimum of 8 ounces of fluid every hour while awake. ___ Soft diet. Rice, crackers, bananas, Jell-O, cooked carrots, applesauce. ___ [place]arrard diet. Avoid caffeine, chocolate, alcohol, spiced/greasy foods. URINARY TRACT INFECTION ___ Drink 8-12 glasses of water every day. ___ Urinate frequently; do not limit fluids to reduce frequency of urination. ___ Call your physician if burning and frequency with urination returns after taking all your medication. ___ Call your physician if you have a temperature of 100.4 degrees Fahrenheit or higher. ___ Wipe from front to back. SIGNS OF PRE-ECLAMPSIA _X__ Severe heartburn. _X__ Persistent headache not relieved by Tylenol. _X__ Increased in swelling of face, hands and feet. _X__ Blurred vision, double vision, or spots in the eyes. _X__ Persistent vomiting. _X__ *Convulsions or seizures. LABOR ___ Restrict activity. ___ Drink 8-12 glasses of water every day. ___ Urinate frequently ___ Pelvic rest. No sexual intercourse/ Call your physician if you experience: _X__ Increase in vaginal discharge, leaking fluid, or vaginal bleeding. _X__ More than 4, 5, or 6 contractions in one hour. _X__ Burning and frequency with urination. DECREASED MOVEMENT _X__ Lie down on your left side, drink some fluids and relax. Count the movements. You need to have 10 movements in 2 hours. _X__ If you do not feel the 10 movements, call your physician. OTHER ___ After an exam you may experience some spotting or discharge. As long as it is not bright red and heavy like a period or continues to leak as if your water broke, it is to be expected. ___ COME TO THE HOSPITAL AND CALL PHYSICIAN IF: _X__ Your abdomen feels continually firm. _X__ *Bleeding is bright red and enough to saturate a pad in one hour or less. *Call 911 or go to the nearest Emergency Room for assistance. Form [id number] D: 05/31 Document Released: 06/09/2006 Document Revised: 05/28/2012 Document Reviewed: 06/09/2006 ExitCare Patient Information 2012 [employer]. Follow Up Care 03/11/2022 13:35:35 With:CHERRY PICKER OPERATOR, CLINIC Address: [address] [place] [address] (Fri-Fri from 8:30am - 5:00pm) [place] [address]- When: Unknown Comments:Follow-up as scheduled [facility] 03-12-2022 Note To whom it may concern, Patient was seen in labor and delivery on 03/11-03/12/2022. Please excuse her for this time. If there are any questions please feel free to call [facility]. Thank you, Breanne Draper M.D. Digitally Signed by BREANNE DRAPER MD on 03/12/2022 03:11 PM [facility] 03-12-2022 Note Discharge Instructions Thank you for allowing [facility] to assist you with your healthcare needs. The following is important discharge information regarding your hospital visit. Your Care Team PHYSICIAN, NONE What to do next Follow Up Appointments Follow Up with CHERRY PICKER OPERATOR, CLINIC When Why: Follow-up as scheduled Where: [address] [facility] (Fri-Fri from 8:30am - 5:00pm) [place] [address]- Someone Will Contact You Regarding These Home Health Referrals No home referrals have been ordered for you. No one will call you. The Following Activity and Diet Have Been Ordered for You Discharge Activity - Ordered -- May Shower, No sexual intercourse or anything inside of the vagina x 6 wks. No tub baths x 2 wks, No lifting >15lbs x 6 wks, Don't operate a vehicle for 2 wks and until pain free,, 03/12/22 14:42:00 EDT Discharge Diet - Ordered -- Type of Diet: Regular, No changes were made to your diet during your hospital stay. Please resume your pre hospitalization diet on discharge., 03/12/22 14:42:00 EDT The Following Equipment Has Been Ordered for You Discharge Home Equipment Discharge Wound Care - Ordered -- call the office if exp a temp >100.4, Increase in Bleeding, Increase in Pain, or Increase in foul odors, 03/12/22 14:42:00 EDT The Following Treatments Have Been Arranged for You Discharge Labs No qualifying data available. Discharge Radiology No qualifying data available. Other Therapies No qualifying data available. Allergies Bee Stings Latex Medications Please ask your primary doctor or pharmacist before taking any other medication not listed, including over the counter drugs, herbal medications, vitamins and or supplements as they may interact with your home medications. What How Much When Instructions Last Dose Unchanged famotidine (Pepcid 20 mg oral tablet) 1 tab(s) by mouth Two (2) times a day Unchanged multivitamin, 1 tab(s) by mouth Every day Please take this list to your next doctor s visit. Bring all medications you take, including over the counter medications, herbals and other supplements with you to your doctor s visit. Patients and families are reminded to discard old lists and to update any records with all medication providers or retail pharmacies. Education Materials [facility] LABOR AND DELIVERY OUTPATIENT HOME-GOING INSTRUCTIONS _X_ You are to follow up with your physician as scheduled. ACTIVITY ___ Bedrest _X__Activity as tolerated ___ No work/school for ___ days. ___Other PRESCRIPTION GIVEN ___Yes NAUSEA/VOMITING ___ Take small, frequent amounts of clear liquids. Avoid fruit juices and milk. ___ Increase fluid intake to a minimum of 8 ounces of fluid every hour while awake. ___ Soft diet. Rice, crackers, bananas, Jell-O, cooked carrots, applesauce. ___ Garrard diet. Avoid caffeine, chocolate, alcohol, spiced/greasy foods. URINARY TRACT INFECTION ___ Drink 8-12 glasses of water every day. ___ Urinate frequently; do not limit fluids to reduce frequency of urination. ___ Call your physician if burning and frequency with urination returns after taking all your medication. ___ Call your physician if you have a temperature of 100.4 degrees Fahrenheit or higher. ___ Wipe from front to back. SIGNS OF PRE-ECLAMPSIA _X__ Severe heartburn. _X__ Persistent headache not relieved by Tylenol. _X__ Increased in swelling of face, hands and feet. _X__ Blurred vision, double vision, or spots in the eyes. _X__ Persistent vomiting. _X__ *Convulsions or seizures. LABOR ___ Restrict activity. ___ Drink 8-12 glasses of water every day. ___ Urinate frequently ___ Pelvic rest. No sexual intercourse/ Call your physician if you experience: _X__ Increase in vaginal discharge, leaking fluid, or vaginal bleeding. _X__ More than 4, 5, or 6 contractions in one hour. _X__ Burning and frequency with urination. DECREASED MOVEMENT _X__ Lie down on your left side, drink some fluids and relax. Count the movements. You need to have 10 movements in 2 hours. _X__ If you do not feel the 10 movements, call your physician. OTHER ___ After an exam you may experience some spotting or discharge. As long as it is not bright red and heavy like a period or continues to leak as if your water broke, it is to be expected. ___ COME TO THE HOSPITAL AND CALL PHYSICIAN IF: _X__ Your abdomen feels continually firm. _X__ *Bleeding is bright red and enough to saturate a pad in one hour or less. *Call 911 or go to the nearest Emergency Room for assistance. Form 499666 D: 05/31 Document Released: 06/09/2006 Document Revised: 05/28/2012 Document Reviewed: 06/09/2006 ExitCare Patient Information 2012 [employer]. Additional Information VACCINATE! IT SAVES LIVES! Members of the community who have not yet received the COVID-19 vaccine and would like to receive it can visit one of [facility] vaccine clinics. There are many vaccine clinic locations within the [facility]. For locations and available times, please visit [email or web address]. It is important to note that some COVID mobile vaccine clinics are held outdoors and may be canceled in rainy or stormy conditions. To learn more about pediatric vaccinations (ages 5-11), we invite you to visit the [facility] webpage. [email or web address]-[email or web address]-Fr fxlreosb-[email or web address].[email or web address] To learn more about the COVID-19 vaccine, we invite you to visit the [facility] website for a list of frequently asked questions. [email or web address]/[email or web address] -Frequently_Asked-Questions.pdf [facility] Patient Portal Access Instructions: Stay connected with your healthcare team and access your personal medical information anytime with the [facility] Patient Portal.If you would like a full copy of your medical records, please contact the [facility] Medical Records Department, Friday through Friday between 8a.m. and 4:30p.m. Please follow the directions below to access the portal: 1.Access the email account you provided upon registration to the hospital.2.Look for an invitation email from [facility].3.Open the email and access the invitation link: Accept Invitation to [facility]4.Fill in the required campos to create your account. Sign into [email or web address] with your username and password that you created in the above steps to stay up to date. You can then view a summary of results, a summary of your visits, and the ability to download your summaries to your computer or send the information securely to a physician. Remember that your healthcare information is confidential, so carefully consider who you will allow to register on the [employer] Patient Portal for access to your information. You can also access the [facility] Patient Portal on the [employer]. Simply click on Health Records under Health Data and then click on the [employer] logo. HOW TO SAFELY DISPOSE OF PRESCRIPTION MEDICATIONS Please use one of the following methods to safely dispose of your unused medications. 1.Use a drug disposal kit: the drug disposal pouch allows you to safely discard your old and unused drugs. Ask your nurse to give you one when you are discharged.2.Visit a local take-back location: Many local pharmacies and police departments have programs that collect old and unwanted prescription drugs. Call your local pharmacy or go to http://SpanDeX.[place]/9D4Nd0t to find one close to you.3.Make use of household items: Use cat litter or old coffee grounds to dispose medications if other options are not available. Mix your drugs with these household products, seal them in an airtight container and throw it into the garbage. Call [facility]: [phone] to be sure your drugs can be disposed of in this way. Some medicines may require a different approach.4.Never flush your medications down the toilet. IF YOU HAVE BEEN PRESCRIBED AN OPIOID FOR PAIN If you have been prescribed an opioid (such as hydrocodone, oxycodone or morphine), it is critical to understand the possible side effects and risks of opioid pain medications. Even when taken as directed, opioids can have several side effects including: Tolerance, meaning you might need to take more of a medication for the same pain relief. Nausea, vomiting and/or constipation. Sleepiness, dizziness, dry mouth, confusion, depression or itching. Physical dependence, meaning you have withdrawal symptoms when a medication is stopped, can develop within a few days. KNOW YOUR RESPONSIBILITIES It is important to know exactly how much and how often to take the opioid pain medications you are prescribed. Never take opioids in higher amounts or more often than prescribed. Do not combine opioids with alcohol or other drugs that cause drowsiness, such as benzodiazepines, also known as benzos, including diazepam and alprazolam, muscle relaxants or sleep aids. Never sell or share prescription opioids. This is illegal. Store opioids in a secure place and out of reach of others (including children, family, friends and visitors). The last page of this document has been signed and retained as a CHART COPY Signatures Patient Education Materials 7 - Labor and Delivery Outpatient Instructions (CUSTOM) Medication Leaflets My discharge plan and instructions have been reviewed and explained to me and I,LALITHA GARCIA M understand my current condition and have read and understand these discharge instructions. I have received a written copy of the plan/instructions. If I have questions, I am aware that I should contact my doctor. Patient/Customer Service Supervisor Signature: Date/Time: Relationship to Patient: Witness Name/Signature: Date/Time: [facility] 03-12-2022 perinata l medicine Consult note Asked to see this 26 yo G1 female who presents with elevated blood pressures at 34 weeks gestation. She failed the NST yesterday. We discussed delivefy at 34 weeks including respiratory distress, low risk of infection, feeding and temperature problems and apnea of prematurity. Mom has received steroids and is on magnesium for her preeclampsia. had been otherwise normal to that point. Mom is Rh negative. Mom plans to breast feed and agreed to the donor breast milk usage while her milk comes in. She is expecting a girl named Jose Angel. OB plan: Repeat non stress test today consider induction if abnormal NICU will attend delivery Time spent 30 minutes Digitally Signed by IKER WRIGHT MD on 03/12/2022 09:51 AM [facility] 03-12-2022 Evaluation + Plan note Diagnostic Tests PendingPrenatal Profile 7 03/12/22 [facility] 03-11-2022 Anesthesiology Consult note Patient: LALITHA GARCIA Age: 26 years Sex: Female : 1995 Associated Diagnoses: None Author: IVON RINCON APRN-YOBANY Preoperative Information Anesthesia history Patient's history: negative. Family's history: negative. Review of Systems Ear/Nose/Mouth/Throat: Negative. Respiratory: asthma- inhaler 1-2X/week. Cardiovascular: Heart murmur, GHTN. Gastrointestinal: Reflux. Genitourinary: Negative. Endocrine: Negative. Musculoskeletal: Negative. Integumentary: Negative. Neurologic: migraines, No tingling. Reproductive: Para Scoring 1/0, Week's Gestation 33.6, EDC 04/23/2022. Tubal: No. Health Status Allergies: Allergic Reactions (Selected) Severity Not Documented Bee Stings- No reactions were documented. Latex- No reactions were documented., Allergies (2) ActiveReaction Bee StingsNone Documented LatexNone Documented Current medications: (Selected) Inpatient Medications Ordered Bolus LR 500 mL: 1,000 mL, IV Bolus, AsDirected, PRN: Other (see order comments) Celestone Soluspan: 12 mg, 2 mL, Intramuscular, q24h LR 1,000 mL: 125 mL/hr, Intravenous Pepcid: 20 mg, 1 tab(s), Oral, BID multivitamin, : 1 tab(s), Oral, Daily Documented Medications Documented Pepcid 20 mg oral tablet: 20 mg, 1 tab(s), Oral, BID, 0 Refill(s) multivitamin, : 1 tab(s), Oral, Daily, 0 Refill(s), Medications (5) Active Scheduled: (3) betamethasone acetate-betamethasone sodium phosphate 3 mg-3 mg Suspension 12 mg 2 mL, Intramuscular, q24h famotidine 20 mg tablet 20 mg 1 tab(s), Oral, BID multivitamin, Multivitamins with Folic Acid 1 mg Tab 1 tab(s), Oral, Daily Continuous: (1) Lactated Ringers 1,000 mL 1,000 mL, Intravenous, 125 mL/hr PRN: (1) Lactated Ringers Injection 1000 mL * Bolus * 1,000 mL, IV Bolus, AsDirected Problem list: Medical Asthma / SNOMED CT 147772423 / Confirmed Attention deficit disorder / SNOMED CT 170066320 / Confirmed / SNOMED CT 224433111 / Confirmed / SNOMED CT 348608280 / Confirmed, Active Problems (4) Asthma Attention deficit disorder Histories Past Medical History: Active Attention deficit disorder (975345579) Family History: Unable to obtain. Procedure history: Tonsillectomy (094653166). Social History Social & Psychosocial Habits Alcohol 03/14/2017 Use: Current Substance Abuse 03/14/2017 Use: Current Type: Marijuana Frequency: 1-2 times per month . Physical Examination Vital Signs(last 24 hrs) Last Charted Temp Oral36.8 DegC (MAR 11 13:45) Heart Rate Ordkvciil49 bpm (MAR 11 14:30) Resp Rate 20 br/min (MAR 11 13:45) BMI44.19 (MAR 11 17:52) Measurements from flowsheet : Measurements 03/11/2022 17:52 EDT Height 172.7 cm Admission Weight 131.8 kg [place] Body Weight 63.88 kg BSA Admission 2.4 Body Mass Index 44.19 kg/m2 03/11/2022 13:43 EDT Height 172.7 cm Admission Weight 131.8 kg [place] Body Weight 63.88 kg BSA Admission 2.4 Body Mass Index 44.19 kg/m2 General: Alert and oriented. Airway: Normal temporomandibular joint mobility. Mallampati classification: III (soft palate, base of uvula visible), small mouth opening. Head: Normocephalic. Dentition Evaluation: Intact, Own teeth. Neck: Supple. Respiratory: Lungs are clear to auscultation. Cardiovascular: Normal rate, Regular rhythm. Heart Sounds: Normal. Musculoskeletal Normal range of motion. Integumentary: Intact. Neurologic: Alert, Oriented. Assessment and Plan [place] Society [employer] Anesthesiologists (ASA) physical status classification: Class III. Anesthetic Preoperative Plan Anesthetic technique: Epidural. Regional: Epidural. Risks discussed: nausea, vomiting, headache, sore throat, dental injury, hypotension, allergic reaction, serious complications, General discussed with pt in case of emergency. Informed consent: signed by patient. Digitally Signed by IVON RINCON on 03/11/2022 06:43 PM Digitally Signed by IVON RINCON on 03/11/2022 06:44 PM [facility] 09-25-2021 Note [facility] Work Phone: Pap Smear Specimen Adequacy September 25, 2021 3:00pm Comment Satisfactory for evaluation. Endocervical and/or squamous metaplasticcells (endocervical component) are present. Comment on above: Satisfactory for gregor luation. Endocervical and/or squamous metaplasticcells (endocervical component) are present. Evaluation note No assessment information availa ble [facility] Work Phone: Evaluation note Diagnosis NO SHOW- Primary documented in this encounter [facility] note* Diagnosis Psychological factors affecting medical condition- Primary Psychic factors associated with diseases classified elsewhere Obesity, unspecified class, unspecified obesity type, unspecified whether serious comorbidity present documented in this encounter [facility] note* Diagnosis Class 3 severe obesity with body mass index (BMI) of 50.0 to 59.9 in adult, unspecified obesity type, unspecified whether serious comorbidity present (HCC)- Primary documented in this encounter [facility] note* Diagnosis Ovarian cyst, right- Primary Other and unspecified ovarian cyst Abnormal uterine bleeding (AUB) documented in this encounter [facility] note* Diagnosis Ovarian cyst, right- Primary Other and unspecified ovarian cyst Paratubal cyst Other noninflammatory disorder of ovary, fallopian tube, and broad ligament documented in this encounter [facility] note* Diagnosis Class 3 severe obesity with body mass index (BMI) of 50.0 to 59.9 in adult, unspecified obesity type, unspecified whether serious comorbidity present (HCC)- Primary documented in this encounter [facility] note* Diagnosis DARWIN (obstructive sleep apnea)- Primary Obstructive sleep apnea (adult) (pediatric) documented in this encounter [facility] note* Diagnosis Abnormal uterine bleeding (AUB)- Primary documented in this encounter [facility] note* Diagnosis Encounter for IUD insertion- Primary Encounter for insertion of intrauterine contraceptive device Encounter for insertion of intrauterine contraceptive device documented in this encounter [facility] note* Diagnosis Encounter for IUD insertion- Primary Encounter for insertion of intrauterine contraceptive device documented in this encounter [facility] note* Diagnosis Intractable migraine without aura and without status migrainosus- Primary Migraine without aura, with intractable migraine, so stated, without mention of status migrainosus DARWIN (obstructive sleep apnea) Obstructive sleep apnea (adult) (pediatric) documented [facility] Narrative No data available for this section [facility] Reason for referral (narrative)* Diagnostic Procedure Only (Routine) - Authorized Specialty Diagnoses / Procedures Referred By Barak t Referred To Contact [facility] Diagnoses Ovarian cyst, right Procedures PELVIC US WHI US PELVIC NONOBSTETRIC REAL-TIME IMAGE COMPLETE Josey Rush APRN.CNM [address] [place] [address] [facility] [address] [place] [address] Referral ID Status Reason Start Date Expiration Date Visits Requested Visits Authorized [id number] Authorized Auto-Generat ed Referral 07/09/2024 07/09/2025 1 1 [facility] for visit Narrative* Diagnostic Procedure Only (Routine) - Closed Specialty Diagnoses / Procedures Referred By Contac t Referred To Contact [facility] Diagnoses Ovarian cyst, right Procedures PELVIC US WHI US PELVIC NONOBSTETRIC REAL-TIME IMAGE COMPLETE Josey Rush APRN.CNM [address] [place] [address] [facility] [address] [place] [address] Referral ID Status Reason Start Date Expiration Date V isits Requested Visits Authorized [id number] Closed Auto-Generate d Referral 07/09/2024 07/09/2025 1 1 [facility] Summary Purpose Family History No Family History Records FoundNo Family History Records FoundNo Family History Records FoundNo Family History Records FoundNo Family History Records FoundNo Family History Records FoundNo Family History Records Found Advance Directives No Advanced Directives Records FoundNo Advanced Directives Records FoundNo Advanced Directives Records FoundNo Advanced Directives Records FoundNo Advanced Directives Records FoundNo Advanced Directives Records FoundNo Advanced Directives Records Found Reason for Referral Specialty Diagnoses / Procedures Referred By Contac t Referred To Contact Internal Medicine Diagnoses Class 3 severe obesity with body mass index (BMI) of 50.0 to 59.9 in adult, unspecified obesity type, unspecified whether serious comorbidity present (HCC) Procedures CONSULT TO INTERNAL MEDICINE OFFICE/OUTPATIENT [facility] 60 MINUTES Rin Morgan MD [address] [place] [address] Referral ID Status Reason Start Date Expiration Date Visits Requested Visits Authorized [id number] Authorized PCP Requested Referral 4 05/14/2025 1 1 Specialty Diagnoses / Procedures Referred By Contac t Referred To Contact [facility] Diagnoses Class 3 severe obesity with body mass index (BMI) of 50.0 to 59.9 in adult, unspecified obesity type, unspecified whether serious comorbidity present (HCC) Procedures HOME SLEEP APNEA TEST (HSAT) SLEEP STD AIRFLOW HRT RATE&O2 SAT EFFORT Rin Carlson MD [address] [place] [address] [facility] [address] [place] [address] Referral ID Status Reason Start Date Expiration Date Visits Requested Visits Authorized [id number] New Request Auto-Generat ed Referral 05/14/2025 1 1 Additional Source Comments INFORMATION SOURCE (unrecogn ized section and content) DATE CREATED AUTHOR 04/04/2018 [facility] DATE CREATED AUTHOR AUTHOR'S ORGANIZ ATION 03/20/2022 [facility] DATE CREATED AUTHOR AUTHOR'S ORGANIZ ATION 10/05/2022 [facility] DATE CREATED AUTHOR AUTHOR'S ORGANIZ ATION 05/27/2024 [facility] DATE CREATED AUTHOR AUTHOR'S ORGANIZ ATION 10/10/2024 [facility] DATE CREATED AUTHOR AUTHOR'S ORGANIZ ATION 11/19/2024 [facility] DATE CREATED AUTHOR AUTHOR'S ORGANIZ ATION 12/11/2024 [facility] Goals (unrecognized section and content) Goals may be documented in a n alternate section No data available for this section No data available for this section Care Team (unrecognized sect ion and content) Care Team Personnel Name: PHYSICIAN, NONE Position: Physician Member Role: Primary Care Physician Name: TOMMIE Lopes Position: OB RN Med Service: [id number] Member Role: RN Name: Irma Crowell RN Position: OB RN Member Role: RN Care Team Related Persons Name: DENI, LALITHA Name: DENI, LALITHA Name: DENI, LALITHA Name: DENI, LALITHA Name: DENI, LALITHA Name: DENI, LALITHA Name: DENI, LALITHA Name: DENI, LALITHA Name: DENI-JOHNS, CATHERIN Name: DENI-JOHNS LALITHA D Address: [place] [address], [address] Name: SHAKIR KENNY Address: Home [address] Patient Care team informatio n (unrecognized section and content) Care Team Personnel Name: PHYSICIAN, NONE Position: Physician Member Role: Primary Care Physician Name: ELAINE WILDER PA-C Position: ED [facility] Nurse Practitioner Member Role: Physician Rubber Attacher w/Rx Address: Address: [address] [place] [address] [place] [address] Name: NAE ROBERTO DO Position: ED Physician Member Role: Attending Physician Address: Address: [address] [place] [address] [facility] [address] Name: Rosetta Valiente Position: [address]- Medical Research Assistant Care Team Related Persons Name: DENI, LALITHA Name: DENI, LALITHA Name: DENI, LALITHA Name: DENI, LALITHA Name: DENI, LALITHA Name: DENI, LALITHA Name: DENI, LALITHA Name: DENI, LALITHA Name: DENI-JOHNS, CATHERIN Name: DENI-JOHNS, LALITHA D Address: [place] [address] Name: JOSE ANGEL GARCIA Address: [place] [address] Name: SHAKIR KENNY Address: Home [address] [place] [address] Source Comments (unrecognize d section and content) In the event this informatio n is protected by the Federal Confidentiality of Alcohol and Drug Abuse Patient Records regulations: The Federal rules restrict any use of the information to criminally investigate or prosecute any alcohol or drug abuse patient.[facility] the event this information is protected by the Federal Confidentiality of Alcohol and Drug Abuse Patient Records regulations: The Federal rules restrict any use of the information to criminally investigate or prosecute any alcohol or drug abuse patient.[facility] the event this information is protected by the Federal Confidentiality of Alcohol and Drug Abuse Patient Records regulations: The Federal rules restrict any use of the information to criminally investigate or prosecute any alcohol or drug abuse patient.[facility] the event this information is protected by the Federal Confidentiality of Alcohol and Drug Abuse Patient Records regulations: The Federal rules restrict any use of the information to criminally investigate or prosecute any alcohol or drug abuse patient.[facility] CenterIn the event this information is protected by the Federal Confidentiality of Alcohol and Drug Abuse Patient Records regulations: The Federal rules restrict any use of the information to criminally investigate or prosecute any alcohol or drug abuse patient.[facility] CenterIn the event this information is protected by the Federal Confidentiality of Alcohol and Drug Abuse Patient Records regulations: The Federal rules restrict any use of the information to criminally investigate or prosecute any alcohol or drug abuse patient.[facility] Center[facility] the event this information is protected by the Federal Confidentiality of Alcohol and Drug Abuse Patient Records regulations: The Federal rules restrict any use of the information to criminally investigate or prosecute any alcohol or drug abuse patient.[facility] CenterIn the event this information is protected by the Federal Confidentiality of Alcohol and Drug Abuse Patient Records regulations: The Federal rules restrict any use of the information to criminally investigate or prosecute any alcohol or drug abuse patient.[facility] CenterIn the event this information is protected by the Federal Confidentiality of Alcohol and Drug Abuse Patient Records regulations: The Federal rules restrict any use of the information to criminally investigate or prosecute any alcohol or drug abuse patient.[facility] CenterIn the event this information is protected by the Federal Confidentiality of Alcohol and Drug Abuse Patient Records regulations: The Federal rules restrict any use of the information to criminally investigate or prosecute any alcohol or drug abuse patient.[facility] CenterIn the event this information is protected by the Federal Confidentiality of Alcohol and Drug Abuse Patient Records regulations: The Federal rules restrict any use of the information to criminally investigate or prosecute any alcohol or drug abuse patient.[facility] CenterIn the event this information is protected by the Federal Confidentiality of Alcohol and Drug Abuse Patient Records regulations: The Federal rules restrict any use of the information to criminally investigate or prosecute any alcohol or drug abuse patient.[facility] CenterIn the event this information is protected by the Federal Confidentiality of Alcohol and Drug Abuse Patient Records regulations: The Federal rules restrict any use of the information to criminally investigate or prosecute any alcohol or drug abuse patient.[facility] CenterIn the event this information is protected by the Federal Confidentiality of Alcohol and Drug Abuse Patient Records regulations: The Federal rules restrict any use of the information to criminally investigate or prosecute any alcohol or drug abuse patient.[facility] CenterIn the event this information is protected by the Federal Confidentiality of Alcohol and Drug Abuse Patient Records regulations: The Federal rules restrict any use of the information to criminally investigate or prosecute any alcohol or drug abuse patient.[facility] CenterIn the event this information is protected by the Federal Confidentiality of Alcohol and Drug Abuse Patient Records regulations: The Federal rules restrict any use of the information to criminally investigate or prosecute any alcohol or drug abuse patient.[facility] CenterIn the event this information is protected by the Federal Confidentiality of Alcohol and Drug Abuse Patient Records regulations: The Federal rules restrict any use of the information to criminally investigate or prosecute any alcohol or drug abuse patient.[facility] Reason for Visit (unrecogniz ed section and content) Reason Comments No Show Reason Comments Obesity Reason Comments Obesity Reason Comments Ovarian cysts Reason Comments Headache Reason Comments Menorrhagia Reason Onset Date Comments Abnormal uterine bleeding IUD 10/21/2024 Reason Onset Date Comments Insertion Of IUD 11/02/2024 Specialty Diagnoses / Procedures Referred By Barak zelaya Referred To Contact [facility] Diagnoses Encounter for IUD insertion Encounter for insertion of intrauterine contraceptive device Procedures INSERT INTRAUTERINE DEVICE LEVONORGESTREL IU 52MG 5 YR INSERT INTRAUTERINE DEVICE Shahnaz Marin MD [address] [place] [address] Phone: tel: fax: [facility] [address] [place] [address] Referral ID Status Reason Start Date Expiration Date V isits Requested Visits Authorized [id number] Closed Auto-Generate d Referral 10/22/2024 10/21/2025 1 1 Reason Comments Leg Pain Reason Comments Hospital F/U FOR RECORDS PERTAINING TO PATIENTS WHO ARE OR HAVE BEEN ENROLLED IN A CHEMICAL DEPENDENCY/SUBSTANCEABUSE PROGRAM, SOME INFORMATION MAY BE OMITTED. This clinical summary was aggregated from multiple sources. Caution should be exercised in using it in the provision of clinical care. This summary normalizes information from multiple sources, and as a consequence, information in this document may materially change the coding, format and clinical context of patient data. In addition, data may be omitted in some cases. CLINICAL DECISIONS SHOULD BE BASED ON THE PRIMARY CLINICAL RECORDS. [facility] provides no warranty or guarantee of the accuracy or completeness of information in this document.
[2025-01-22 23:13] LABS: Hematocrit 41.5 % (37-47); Hemoglobin 13.6 g/dL (12.0-15.0); Immature Granulocytes Count 0.010 X10^3/uL (0.0-0.0); Mean Corp Hgb Conc 32.8 g/dL (32-36); Mean Corpuscular Volume 88.3 fL (81-99); Mean Platelet Vol. 9.3 fl (6.2-12.0); NRBC Flagged by Analyzer 0 % (0-5); Platelet Count 313 K/mm3 (150-450); RBC Distribution Width CV 12.9 % (11.6-14.6); RBC Distribution Width SD 41.5 fl (35.1-43.9); Red Blood Count 4.70 M/mm3 (4.2-5.4); White Blood Count 5.5 K/mm3 (4.4-11.0)
[2025-01-22 23:17] LABS: Anion Gap 9 (5-15); BUN 12 mg/dL (4-19); BUN/Creat Ratio 17.2 RATIO (10-20); Calcium,Total 9.0 mg/dL (7.6-11.0); Carbon Dioxide 25.5 mmol/L (21.0-32.0); Chloride 105 mmol/L (98-108); Estimated Creatinine Clearance 237.01 ml/min (50-250); Glucose 105 mg/dL (70-99); Potassium 4.2 mmol/L (3.3-5.1)
[2025-01-22 23:29] VITALS: BP 141/70; PULSE 71; RESP 16; TEMP 36.2; O2SAT 100
== END 2025-01-22 23:31 | disposition home or self-care (01) ==
PROVIDERS: Emergency Provider Emergency Medicine; Visit Provider Emergency Medicine
DX: R60.0 Localized edema (principal); F41.9 Anxiety disorder, unspecified; F17.210 Nicotine dependence, cigarettes, uncomplicated; F17.290 Nicotine dependence, other tobacco product, uncomplicated
CPT/HCPCS: 80048; 85025; 99285; A4216

== ENCOUNTER 2025-03-21 11:04 | Emergency (ER) | payer MEDICAID, SELFPAY ==
--- OUTSIDE RECORDS SUMMARY | 2025-02-17 22:16 | XMS RPT_ITS ---
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 Name Role Phone BRIT PAUL Attending Unavailable MORGANRIN Attending Unavailable GOODPASTERGWEN Attending Unavailable GOODPASTGWEN BENAVIDES Referring Unavailable GWEN ZHANG Attending Unavailable ALBER WOLFF Attending Unavailable KEHRBRIT BENAVIDES Referring Unavailable SHAHNAZ MARIN Attending Unavailable ASIA, SHAHNAZ Referring Unavailable ASIA, SHAHNAZ Attending Unavailable MORGAN, RIN Referring Unavailable MORGAN, RIN Attending Unavailable RUSH, JOSEY Referring Unavailable RUSH, JOSEY Referring Unavailable RUSH, JOSEY Attending Unavailable PROBLEMS DATE TYPE CONDITION / CODE ATTENDING STATUS [facility] 02/17/2025 Active Left eye pain / H57.12(ICD-10) NA [facility] 02/17/2025 Active Watering of left eye / H04.202(ICD-10) [facility] 02/17/2025 Active Abrasion of left cornea, initial encounter / S05.02XA(ICD-10) [facility] 02/17/2025 Active Elevated blood p ressure reading without diagnosis of hypertension / R03.0(ICD-10) [facility] 12/08/2024 Active 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 / G43.019(ICD-10) ALBER WOFLF Active [facility] 12/08/2024 Active DARWIN (obstructive sleep apnea) / G47.33(ICD-10) ALBER WOLFF Active [facility] 11/16/2024 Active Pain of right lo wer extremity / M79.604(ICD-10) [facility] 11/16/2024 Active Muscle strain / T14.8XXA(ICD-10) [facility] 11/02/2024 Active Encounter for IU D insertion / Z30.430(ICD-10) ASIA SHAHNAZ [facility] 10/08/2024 Active Abnormal uterine bleeding (AUB) / N93.9(ICD-10) SHAHNAZ MARIN [facility] 10/08/2024 Active Irregular menstr ual bleeding / N92.6(ICD-10) [facility] 10/08/2024 Active History of ovari an cyst / Z87.42(ICD-10) [facility] 09/15/2024 Active Class 3 severe o besity with body mass index (BMI) of 50.0 to 59.9 in adult, unspecified obesity type, unspecified whether serious comorbidity present (HCC) / E66.813(ICD-10) [facility] 09/15/2024 Active Class 3 severe o besity with body mass index (BMI) of 50.0 to 59.9 in adult, unspecified obesity type, unspecified whether serious comorbidity present (HCC) / E66.01(ICD-10) [facility] 09/15/2024 Active Class 3 severe o besity with body mass index (BMI) of 50.0 to 59.9 in adult, unspecified obesity type, unspecified whether serious comorbidity present (HCC) / Z68.43(ICD-10) [facility] 09/11/2024 Active Chest wall pain / R07.89(ICD-10) [facility] 09/11/2024 Active Musculoskeletal chest pain / R07.89(ICD-10) [facility] 09/09/2024 Active Tension-type hea dache, not intractable, unspecified chronicity pattern / G44.209(ICD-10) BRIT PAUL [facility] 09/09/2024 Active Elevated blood-p ressure reading without diagnosis of hypertension / R03.0(ICD-10) BRIT PAUL [facility] 07/15/2024 Active Ovarian cyst, ri ght / N83.201(ICD-10) [facility] PROCEDURES No Procedure Records Found RESULTS BACILIO Observed: 02/18/2025 12:00 AM Status: COMPLETED Source: [facility] Telephone (INTMMM) RADHALALITHA Winn ([id number]) 1995 F Date Time Provider Department 02/18/25 KIM CASEY INTMMM During your visit today, we recorded the following information about you: Amy Arnett 02/18/2025 4:00 PM Signed Spoke with patient regarding today's same day scheduled er follow up appointment. She forgot she set up this appointment. She did want to reschedule but due to Dr. Casey's schedule patient was given the [facility] phone number at [phone]. Patient understood that she needs to contact the call center. DALY Peters [phone] Allergies As of Date: 02/18/2025 Noted Allergy Reaction LATEX 07/09/2024 9 - Itching Date Reviewed: 02/17/2025 Reviewed by: Aram Leal, TOMMIE - Fully Assessed Reason for Visit: Missed Appointment [1304] Prescriptions as of 02/18/2025 - ciprofloxacin HCl (CILOXAN) 0.3 % ophthalmic solution Use 1-2 drops inside left lower eyelid(s) every 2 hours while awake for 2 days, then 1-2 drops every 4 hours for next 5 days. - topiramate (TOPAMAX) 50 mg tablet Take 1 tablet by mouth daily at bedtime for 14 days, THEN 2 tablets daily at bedtime. - rizatriptan (MAXALT) 10 mg tablet Take 1 tablet by mouth as needed for migraine headache (see administration instructions) (do not use on more than 2 days per week.). AT ONSET OF HEADACHE. MAY REPEAT AFTER 2 HOURS. DO NOT EXCEED 30 MG PER DAY. - levonorgestrel (MIRENA) 21 mcg/24hr (up to 8 yrs) 52 mg IUD 1 each by INTRAUTERINE route as directed. - LORazepam (ATIVAN) 0.5 mg 0.5 mg. - hydrOXYzine HCl (ATARAX) 25 mg tablet Take 25 mg by mouth four times a day as needed. Problem List As Of Date 02/18/2025 Noted Resolved Uncomplicated asthma [J45.909] 05/14/2024 Attention deficit hyperactivity disorder (ADHD)*05/14/2024 Episodic mood disorder (HCC) [F39] 06/06/2014 Foster care (status) [Z62.21] 08/25/2013 Ovarian cyst, right [N83.201] 07/15/2024 Paratubal cyst [N83.8] 07/15/2024 Encounter Status:Closed by AMY ARNETT on 02/18/25 ED NOTE Observed: 02/17/2025 11:12 PM Status: COMPLETED Source: [facility] HNO ID: [id number] Author: ARAM LEAL RN Service: ? Author Type: Registered Nurse Type: ED Notes Filed: 02/17/2025 23:12 Note Text: D/c instructions discussed. Pt verbalized understanding. No questions/concerns at this time. Pt in no apparent distress ED PROV NOTE Observed: 02/17/2025 10:16 PM Status: COMPLETED Source: [facility] HNO ID: [id number] Author: LILIAN PRICE PA-C Service: Emergency Medicine Author Type: Physician Lighter Captain Type: ED Provider Notes Filed: 02/17/2025 23:11 Note Text: ED Provider Note Patient Name: Lalitha Garcia : 1995 SERVICE DATE: 02/17/25 History Patient presents with: Eye Complaint: L eye 29-year-old female presents to the emergency department with complaints of left eye pain and irritation. She states that she woke up this morning and had irritation in the left eye. She reports blurred vision, but no loss of vision. She has had watery eyes, no other discharge. She is concerned that there was a dust particle that got in her eye. She wears glasses, previously had contacts, has not worn them for several months. She denies any other symptoms. Patient's blood pressure was elevated in the ED. She states that she has been told her blood pressure was elevated in the past, does not take anything for it. She also states that is probably elevated because she has multiple significant for coming in. However, again, she denies any other symptoms concerning for this. PAST MEDICAL HISTORY Diagnosis Date - Anxiety state - Obesity - DARWIN (obstructive sleep apnea) PAST SURGICAL HISTORY Procedure Laterality Date - TONSILLECTOMY AND ADENOIDECTOMY <AGE 13 No family history on file. Social History[1] ALLERGIES Allergen Reactions - Latex Itching Review of Systems Eyes: Positive for pain, discharge (Watering) and redness. Visual disturbance: Blurred, no loss of vision. All other systems reviewed and are negative. Physical Exam Vitals [02/17/25 2212] BP Pulse Temp Temp src Resp SpO2 Weight Height 177/95 (!) 117 36.9 ?C (98.4 ?F) Oral 20 98 % -- -- Physical Exam Vitals and nursing note reviewed. Constitutional: General: She is not in acute distress. HENT: Head: Normocephalic and atraumatic. Right Ear: External ear normal. Left Ear: External ear normal. Mouth/Throat: Mouth: Mucous membranes are moist. Eyes: Conjunctiva/sclera: Conjunctivae normal. Pupils: Pupils are equal, round, and reactive to light. Pupils are equal. Left eye: Pupil is round, reactive and not sluggish. Corneal abrasion and fluorescein uptake present. Mook exam negative. Slit lamp exam: Left eye: No foreign body or hyphema. Comments: Fluorescein uptake over lower part of cornea as above. No foreign bodies found in eye Cardiovascular: Rate and Rhythm: Normal rate. Pulmonary: Effort: Pulmonary effort is normal. No respiratory distress. Musculoskeletal: General: No deformity. Normal range of motion. Cervical back: Normal range of motion. Skin: General: Skin is warm and dry. Capillary Refill: Capillary refill takes less than 2 seconds. Neurological: Mental Status: She is alert. Mental status is at baseline. Psychiatric: Behavior: Behavior normal. Diagnostic Testing ED Labs Ordered and Reviewed - No data to display Procedures ED Course / Clinical Impression Clinical Impressions as of 02/17/25 2311 Left eye pain Watering of left eye Abrasion of left cornea, initial encounter Elevated blood pressure reading without diagnosis of hypertension MDM / Disposition / Plan 21-year-old female presents emergency department with complaints of left eye pain, tearing. Patient has corneal abrasion on fluorescein exam. No foreign bodies observed. Patient states that she does feel like she felt the dust particle come out of her eye when the eye was watering. She will be started on antibiotic eyedrops for prophylaxis, encouraged to use NSAIDs for pain control. She states she does have some that she can take. Again, patient's blood pressure elevated in the ED. She states that she has been told her blood pressure is elevated in the past, but has never been formally diagnosed with hypertension, has never been started on any antihypertensives. She states that she is trying to get a primary care provider. Order placed for scheduling team to help schedule follow-up appointment for the patient. Differential Diagnoses - Left corneal abrasion - Hypertensive urgency or emergency is less likely for the following reason(s): Elevated blood pressure, no signs or symptoms concerning for hypertensive urgency or emergency - Orbit Cellulitis Less likely because: HANDP not suggestive - Herpes Zoster Ophthalmicus Less likely because:no surrounding vesicular rash and HANDP not suggestive Disposition The patient was discharged. Counseled patient regarding suspected diagnosis. SIGNATURE: SANGITA Hernandez CARLY 02/17/25 2311 [1] Social History Tobacco Use - Smoking status: Every Day Current packs/day: 0.25 Types: Cigarettes - Smokeless tobacco: Never Vaping Use - Vaping status: Never Used Substance and Sexual Activity - Alcohol use: Not Currently - Drug use: Not Currently Types: Marijuana - Sexual activity: Yes Partners: Male control/protection: None ED NOTE Observed: 02/17/2025 10:12 PM Status: COMPLETED Source: [facility] HNO ID: [id number] Author: ARAM LEAL RN Service: ? Author Type: Registered Nurse Type: ED Notes Filed: 02/17/2025 22:13 Note Text: Pt states waking up this morning with eye irritation. "I don't know if it's a dust particle but its really irritating." Pt states 6/10 pain in L eye. Pt states blurry vision in L eye CNPN Observed: 01/27/2025 12:00 AM Status: COMPLETED Source: [facility] Tele[facility] (Bandwidth) RADHALALITHA ([id number]) 1995 F Date Time Provider Department 01/27/25 ALEJANDRINA VAUGHN DANA During your visit today, we recorded the following information about you: Alejandrina Vaughn 01/27/2025 4:17 PM Signed Checked benefit-yes I.D.=[id number] Nutrtition requirement -0 Special instructions-call for preD [phone] Coverage %100 Deductible= N/a Out of Pocket Max = N/a I.O.Q/ C.O.E/ BRS =N/a Rep name=wen Reference#[id number] Allergies As of Date: 01/27/2025 Noted Allergy Reaction LATEX 07/09/2024 9 - Itching Date Reviewed: 12/08/2024 Reviewed by: Clarita Klein OCCA - Fully Assessed Reason for Visit: Benefit check [Other] Prescriptions as of 01/27/2025 - topiramate (TOPAMAX) 50 mg tablet Take 1 tablet by mouth daily at bedtime for 14 days, THEN 2 tablets daily at bedtime. - rizatriptan (MAXALT) 10 mg tablet Take 1 tablet by mouth as needed for migraine headache (see administration instructions) (do not use on more than 2 days per week.). AT ONSET OF HEADACHE. MAY REPEAT AFTER 2 HOURS. DO NOT EXCEED 30 MG PER DAY. - levonorgestrel (MIRENA) 21 mcg/24hr (up to 8 yrs) 52 mg IUD 1 each by INTRAUTERINE route as directed. - LORazepam (ATIVAN) 0.5 mg 0.5 mg. - hydrOXYzine HCl (ATARAX) 25 mg tablet Take 25 mg by mouth four times a day as needed. Problem List As Of Date 01/27/2025 Noted Resolved Uncomplicated asthma [J45.909] 05/14/2024 Attention deficit hyperactivity disorder (ADHD)*05/14/2024 Episodic mood disorder (HCC) [F39] 06/06/2014 Foster care (status) [Z62.21] 08/25/2013 Ovarian cyst, right [N83.201] 07/15/2024 Paratubal cyst [N83.8] 07/15/2024 Encounter Status:Closed by ALEJANDRINA VAUGHN on 01/27/25 PROGRESS Observed: 12/08/2024 10:40 AM Status: COMPLETED Source: [facility] HNO ID: [id number] Author: ALBER WOLFF MD Service: ? Author [...] HISTORY Procedure Laterality Date TONSILLECTOMY AND ADENOIDECTOMY <AGE 13 Current Outpatient Medications Medication [...] lb 5.9 oz) Height: 172.7 cm (5' 8") General appearance: Well appearing, alert, in no [...] Future - PROVIDER ORDERED FOLLOW UP; Future Lalithashanice Garcia is a 29 year old year old female, with a history of morbid obesity, DARWIN, and episodic migraine. Her neurological examination is essentially normal at this visit. Pt reports she had optometry exam in last 6 months at [facility], and knows of no abnormalities. Given ANGUIANO's [...] Wolff MD December 08, 2024 11:17 AM CNOV Observed: 12/08/2024 10:40 AM Status: COMPLETED Source: [facility] Office Visit ([facility]) LALITHA GARCIA ([id number]) 1995 F Date Time Provider Department 12/08/24 10:40 AM ALBER WOLFF [facility] During your visit today, we recorded the [...] HISTORY Procedure Laterality Date TONSILLECTOMY AND ADENOIDECTOMY <AGE 13 Current Outpatient Medications Medication [...] lb 5.9 oz) Height: 172.7 cm (5' 8") General appearance: Well appearing, alert, in no [...] optometry exam in last 6 months at [facility], and knows of no abnormalities. Given ANGUIANO's [...] Wolff MD December 08, 2024 11:17 AM Referring Provider: BRIT PAUL [[id number]] Allergies As of Date: 12/08/2024 Noted Allergy Reaction LATEX 07/09/2024 9 - Itching Date Reviewed: 12/08/2024 Reviewed by: Clarita Klein OCCA - Fully Assessed Reason for Visit: Hospital F/U [57] Primary Visit Diagnosis:Intractable migraine without aura and without status migrainosus [G43.019] Other Visit Diagnosis:DARWIN (obstructive sleep apnea) [G47.33] Order(s):PAP TITRATION PSG (CPAP, BIPAP, ASV) [4798269] Order #: [id number] FUTURE topiramate (TOPAMAX) 50 mg tabletTake 1 tablet by mouth daily at bedtime for 14 days, THEN 2 tablets daily at bedtime.Disp: 180 tabletRfl: 1 CONSULT TO OPTOMETRY [9024] Order #: [id number]: 1 FUTURE rizatriptan (MAXALT) 10 mg tabletTake 1 tablet by mouth as needed for migraine headache (see administration instructions) (do not use on more than 2 days per week.). AT ONSET OF HEADACHE. MAY REPEAT AFTER 2 HOURS. DO NOT EXCEED 30 MG PER DAY.Disp: 9 tabletRfl: 5 PROVIDER ORDERED FOLLOW UP [[id number]] Order #: [id number]: 1 FUTURE Prescriptions as of 12/08/2024 - topiramate (TOPAMAX) 50 mg tablet Take 1 tablet by mouth daily at bedtime for 14 days, THEN 2 tablets daily at bedtime. - rizatriptan (MAXALT) 10 mg tablet Take 1 tablet by mouth as needed for migraine headache (see administration instructions) (do not use on more than 2 days per week.). AT ONSET OF HEADACHE. MAY REPEAT AFTER 2 HOURS. DO NOT EXCEED 30 MG PER DAY. - levonorgestrel (MIRENA) 21 mcg/24hr (up to 8 yrs) 52 mg IUD 1 each by INTRAUTERINE route as directed. - LORazepam (ATIVAN) 0.5 mg 0.5 mg. - hydrOXYzine HCl (ATARAX) 25 mg tablet Take 25 mg by mouth four times a day as needed. Problem List As Of Date 12/08/2024 Noted Resolved Uncomplicated asthma [J45.909] 05/14/2024 Attention deficit hyperactivity disorder (ADHD)*05/14/2024 Episodic mood disorder (HCC) [F39] 06/06/2014 Foster care (status) [Z62.21] 08/25/2013 Ovarian cyst, right [N83.201] 07/15/2024 Paratubal cyst [N83.8] 07/15/2024 Prescriptions ordered this encounter Disp Refills Start End TOPIRAMATE 50 MG TABLET 180 * 1 12/08/2024 06/20/2025 Route: PO Sig: Take 1 tablet by mouth daily at bedtime for 14 days, THEN 2 tablets daily at bedtime. RIZATRIPTAN 10 MG TABLET 9 ta* 5 12/08/2024 Route: PO Sig: Take 1 tablet by mouth as needed for migraine headache (see administration instructions) (do not use on more than 2 days per week.). AT ONSET OF HEADACHE. MAY REPEAT AFTER 2 HOURS. DO NOT EXCEED 30 MG PER DAY. Medications Discontinued During This Encounter Prescriptions - amitriptyline (ELAVIL) 50 mg tablet (Discontinued) Reported on 12/08/2024 - norethindrone (AYGESTIN) 5 mg tablet (Discontinued) Reported on 12/08/2024 - dulaglutide (TRULICITY) 1.5 mg/0.5 mL pen injector (Discontinued) Reported on 12/08/2024 Level of Service: OFFICE/OUTPATIENT [facility] 45 MINUTES [89661] Additional E/M codes: VISIT CPLX INHERENT EANDM ASSOC WITH MED * Encounter Status:Closed by ALBER WOLFF on 12/08/24 ED NOTE Observed: 11/17/2024 12:40 AM Status: COMPLETED Source: [facility] HNO ID: [id number] Author: ENOC RICHARDS RN Service: Emergency Medicine Author Type: Registered Nurse Type: ED Notes Filed: 11/17/2024 00:41 Note Text: Discharge instructions presented to patient, no questions at this time. MyChart activation information given to patient. Educated patient on importance of follow up as needed, patient verbalized understanding. Patient ambulatory upon discharge from ED ED PROV NOTE Observed: 11/17/2024 12:38 AM Status: COMPLETED Source: [facility] HNO ID: [id number] Author: LIONEL HUFFMAN PA-C Service: Emergency Medicine Author Type: Physician Lighter Captain Type: ED Provider Notes Filed: 11/17/2024 00:41 Note Text: ED Provider Note Patient Name: Lalitha Garcia : 1995 SERVICE DATE: 11/16/24 History No chief complaint on file. 28-year-old female presents complaint of atraumatic right lower extremity pain. The patient states concern for DVT. She reports that she recently drove to [place] and back. Denies any obvious asymmetry. She states no weakness or paresthesias. She reports that she has remained amatory. She reports full range of motion throughout the right lower extremity No past medical history on file. PAST SURGICAL HISTORY Procedure Laterality Date TONSILLECTOMY AND ADENOIDECTOMY <AGE 13 No family history on [...] as of 11/17/24 0038 Lionel Huffman's Documentation Wed November 17, 2024 0029 IMPRESSION: No evidence of [...] Huffman PA-C - LIONEL HUFFMAN 11/17/24 0041 US DVT LOWER RT Observed: 11/16/2024 10:58 PM Status: F Source: [facility] * * *Final Report* * * DATE OF EXAM: Nov 16 2024 10:58PM SPU 1007 - US DVT LOWER RT / [...] on Nov 17 2024 12:20AM EST [id number] ALLIED HEALTH Observed: 11/16/2024 10:57 PM Status: COMPLETED Source: [facility] HNO ID: [id number] Author: JOSEY GILLIS RT(Nahun) Service: ? Author Type: Wine Maker Type: Allied Health Filed: 11/16/2024 22:57 Note [...] PATIENT PRESENTS WITH AN IMPLANTABLE OR ATTACHED GUITAR PLAYER: No RADIOLOGY DEPARTMENT: Ultrasound PERIPHERAL IV DATA: Not applicable SIGNED BY: RT Vini(R) November 16, 2024 10:57 PM ED NOTE Observed: 11/16/2024 10:23 PM Status: COMPLETED Source: [facility] HNO ID: [id number] Author: ZIA DAWSON, TOMMIE Service: ? Author Type: Registered Nurse Type: ED Notes Filed: 11/16/2024 22:24 Note Text: Patient C/O RLE pain after a ten hour [address] from [place]. Patient reports she is unable to tell if there is swelling or not. Pain is from the front of the shine up to the front of the thigh. CNPN Observed: 11/12/2024 12:00 AM Status: COMPLETED Source: [facility] Telephone (OBGYWM) LALITHA GARCIA ([id number]) 1995 F Date Time Provider Department 11/12/24 GRIS QUINTERO [email or web address] During your visit today, we recorded the following information about you: Jose Rojas, TOMMIE 11/12/2024 1:49 PM Signed Pt had Mirena [...] been light-light a light period. Pt asking " you can't take any other control with the Mirena, can you?" Informed Pt that, No you cannot. This RN asked Pt why she is asking and Pt states she has never had an IUD before and didn't know. Pt then asked "If you were to pleasure yourself, are you going to cause yourself to bleed more?" Informed Pt that message would be forwarded [...] hours. Pt voiced understanding. TOMMIE Villalpando Courtney, APRN.CNM 11/12/2024 4:24 PM Signed Agree with plan [...] Encounter Status:Closed by GRIS QUINTERO on 11/12/24 PROGRESS Observed: 11/02/2024 11:31 AM Status: COMPLETED Source: [facility] ID: [id number] Author: SHAHNAZ MARIN MD Service: ? Author Type: Physician Type: Progress Notes Filed: 11/02/2024 12:17 Note Text: Housekeeping Supervisor offered: Patient declines. Lalitha presents today for [...] IUD source: office provided IUD lot #: [id number] Exp date: 11/20/2026 [facility] [id number] UNIVERSAL PROTOCOL / SAFETY CHECKLIST Procedure to [...] or sooner as needed. Shahnaz Marin MD CNOV Observed: 11/02/2024 11:30 AM Status: COMPLETED Source: [facility] Office Visit (OBGYWM) LALITHA GARCIA Tatum ([id number]) 1995 F Date Time Provider Department 11/02/24 11:30 AM SHAHNAZ MARIN During your visit today, we recorded the following information about you: Blood pressure Weight 130/72 171 kg Shahnaz Marin MD 11/02/2024 12:17 PM Signed Housekeeping Supervisor offered: Patient declines. Lalitha presents today for [...] IUD source: office provided IUD lot #: [id number] Exp date: 11/20/2026 [facility] [id number] UNIVERSAL PROTOCOL / SAFETY CHECKLIST Procedure to [...] or sooner as needed. MD Demi Lance Reanna [place] 11/02/2024 11:31 AM Signed POST IUD INSTRUCTIONS [...] contact the office. Referring Provider: SHAHNAZ MARIN [[id number]] Allergies As of Date: 11/02/2024 Noted Allergy Reaction LATEX 07/09/2024 9 - Itching Date Reviewed: 11/02/2024 Reviewed by: Shahnaz Marin MD - Fully Assessed Reason for Visit: Insertion Of IUD [291] Primary Visit Diagnosis:Encounter for IUD insertion [Z30.430] Order(s):INSERT INTRAUTERINE DEVICE [[id number]] Order #: [id number] [] levonorgestrel 21 mcg/24hr (up to 8 yrs) 52 mg 1 each intrauterine device (MIRENA)Disp: Rfl: levonorgestrel (MIRENA) 21 mcg/24hr (up to 8 yrs) 52 mg IUD1 each by INTRAUTERINE route as directed.Disp: 1 eachRfl: 0 UA DIP,URINE HCG (POC) [[id number]] Order #: [id number]. #:[id number] Prescriptions as of 11/02/2024 - levonorgestrel (MIRENA) [...] any additional questions, please contact the office. Prescriptions ordered this encounter Disp Refills Start End LEVONORGESTREL 21 MCG/24 HR (UP TO 8* 11/02/2024 11/02/2024 Route: INTRAUTERINE LEVONORGESTREL 21 MCG/24 HR (UP TO 8* 1 ea* 0 11/02/2024 10/31/2032 Class: In Office Route: INTRAUTERINE Si each by INTRAUTERINE route as directed. Disposition: Return in about 5 weeks (around 12/07/2024) for Follow Up In 4-6 Weeks. Follow-up and Disposition History for Encounter Date Provider Department Center 11/02/2024 [id number]-AXIUPNSHAHNAZ MARIN Encounter Status:Closed by SHAHNAZ MARIN on 11/02/24 BACILIO Observed: 10/21/2024 12:00 AM Status: COMPLETED Source: [facility] Telephone (LUZGYWM) LALITHA GARCIA ([id number]) 1995 F Date Time Provider Department 10/21/24 HEMANTH LUNA During your visit today, we recorded the [...] discuss information with provider. TOMMIE Villalpando Tara, TOMMIE 10/21/2024 12:16 PM Signed POST IUD INSTRUCTIONS [...] CP to discuss ovarian cysts.. Pt states "No, I just don't feel well." Pt states she still would like to [...] asking for Rx to be sent to [place] AND Pt will call and have Rx [...] intrauterine contraceptive device [Z30.430] Order(s):INSERT INTRAUTERINE DEVICE [8493322] Order #: [id number] norethindrone (AYGESTIN) 5 mg tabletTake 1 tablet [...] any additional questions, please contact the office. Prescriptions ordered this encounter Disp Refills Start End NORETHINDRONE ACETATE 5 MG TABLET 30 t* 0 10/22/2024 11/06/2024 Route: ORAL Sig: Take 1 tablet by mouth every 8 hours for 5 days, THEN 1 tablet two times a day for 5 days, THEN 1 tablet once daily for 5 days. Medications Discontinued During This Encounter Prescriptions - norethindrone (AYGESTIN) 5 mg tablet (Discontinued) Take 1 tablet by mouth every 8 hours for 5 days, THEN 1 tablet two times a day for 5 days, THEN 1 tablet once daily for 5 days. Encounter Status:Closed by JOSE ROJAS on 10/21/24 PROGRESS Observed: 10/08/2024 11:22 AM Status: COMPLETED Source: [facility] ID: [id number] Author: SHAHNAZ MARIN MD Service: ? Author [...] visit. Either the patient or their legal tax representative has been informed of the risks [...] without fatigue, no recent change in weight STORY ANALYST: no vaginal discharge, no breast mass/tenderness, menstrual periods are described as: irregular and heavy NEURO: no headache PHYSICAL EXAMINATION: VIDEO EXAM: (if done, performed via video enabled technology) No exam performed ASSESSMENT: (N93.9) Abnormal uterine bleeding (AUB) (primary encounter diagnosis) PLAN: Norethindrone taper IUD planned There are no Patient Instructions on file for this visit. Shahnaz Marin MD ED NOTE Observed: 10/08/2024 8:08 AM Status: COMPLETED Source: [facility] HNO ID: [id number] Author: ELAINE BORJAS RN Service: ? Author Type: Registered Nurse Type: ED Notes Filed: 10/08/2024 08:08 Note Text: AVS reviewed with patient,all questions answered. PIV removed. Patient ambulates out of the ED with an upright steady gait. ED PROV NOTE Observed: 10/08/2024 6:26 AM Status: COMPLETED Source: [facility] HNO ID: [id number] Author: ANTHONY TINOCO PA-C Service: ? Author Type: Physician Lighter Captain Type: ED Provider Notes Filed: 10/08/2024 17:23 [...] She was started on medication by her PROGRAM INSTRUCTOR to stop the bleeding. Patient states that she has been having spotting on and off for 12 days. Is not filling up more than 1 pad an hour. No associated pain, nausea or vomiting. Patient states she was supposed to see her PROGRAM INSTRUCTOR again for follow-up 2 days ago but missed the appointment. Bleeding has currently improved. History reviewed. No pertinent past medical history. PAST SURGICAL HISTORY Procedure Laterality Date - TONSILLECTOMY AND ADENOIDECTOMY <AGE 13 No family history on [...] 171.5 kg (378 lb) 1.727 m (5' 8") Physical Exam Vitals and nursing note reviewed. [...] Declined pelvic exam. Patient requesting referral for PROGRAM INSTRUCTOR in this area as she recently moved here from [place]. Patient has no pain so do not feel imaging is indicated at this time. This was provided to her as well as appointment request for PROGRAM INSTRUCTOR and PCP. Strict return precautions and close PCP follow-up were discussed. All of her questions were answered. Patient was discharged in stable condition. History and Record Review External record(s) reviewed: prior outpatient record and prior labs/imaging. Findings from review of outpatient records: outpatient OBGYN visit on 07/09/2024 Findings from review of prior labs/imaging: Ultrasound on 07/09/2024 that showed ovarian cysts Differential Diagnoses - anemia - UTI is less likely for the following reason(s): HANDP not suggestive - ovarian torsion is less likely for the following reason(s): HANDP not suggestive Management Radiology Reports No orders to display Meds Given During Visit ED Medication Administration from 10/08/2024 0342 to 10/08/2024 0810 Date/Time Order Dose Route Action 10/08/2024 0659 EDT NaCl 0.9% 1,000 mL iv bolus 1,000 mL INTRAVENOUS New Bag/Syringe/Bottle 10/08/2024 0808 EDT NaCl 0.9% 1,000 mL iv bolus 0 mL INTRAVENOUS Infusion Complete Disposition The patient was discharged. Counseled patient regarding radiology results, lab results and suspected diagnosis. Prescriptions and Discharge Orders Discharge Orders None The patient was discussed with the emergency medicine physician on site Dr. Elmore. Follow Up Orders Status Ordering Provider FOLLOW UP APPOINTMENT REQUEST (ED/IP) Question Answer Comment Follow up appointment: PROGRAM INSTRUCTOR Schedule follow up appointment within 1-3 days Follow Up Reason: uterine fibroids Ordered ANTHONY TINOCO SIGNATURE: SANGITA Lazaro HADIL 10/08/24 1723 ED NOTE Observed: 10/08/2024 5:46 AM Status: COMPLETED Source: [facility] ID: [id number] Author: IAM CHENG RN Service: ? Author Type: Registered Nurse Type: ED Notes Filed: 10/08/2024 05:46 Note Text: Pt aware urine is needed COMP METAB 2000 PNL SERPL Collected: 5:43 AM Status: F Source: [facility] Order Comment: Specimen Type : BLOOD SPECIMEN Ordering Facility: [facility] Address: [address] [place] [address] TYPE CODE TESTS RESULT OUT OF RANGE REFERENCE UNITS LAB 2885-2(LOINC) Prot SerPl-mCnc 7.0 6.3-8.0 g/dL LAB 1751-7(LOINC) Albumin SerPl-mCnc 4.1 3.9-4.9 g/dL LAB 02201-7(LOINC) Calcium SerPl-mCnc 9.1 8.5-10.2 mg/dL LAB 1975-2(LOINC) Bilirub SerPl-mCnc 0.3 0.2-1.3 mg/dL LAB 6768-6(LOINC) ALP SerPl-cCnc 69 34-123 U/L LAB 1920-8(LOINC) AST SerPl-cCnc 24 13-35 U/L LAB 1742-6(LOINC) ALT SerPl-cCnc 23 7-38 U/L LAB 2345-7(LOINC) Glucose SerPl-mCnc 99 74-99 mg/dL Result Comment: The [place] Diabetes Association (ADA) provides guidance for cutoff [...] Standards of Medical Care in Diabetes 2016, [place] Diabetes Association. Diabetes Care. 2016.39(Suppl 1). LAB 3094-0(LOINC) BUN SerPl-mCnc 8 7-21 mg/ dL LAB 2160-0(LOINC) Creat SerPl-mCnc 0.64 0.58-0.96 mg/dL LAB 2951-2(LOINC) Sodium SerPl-sCnc 138 136-144 mmol/L LAB 2823-3(LOINC) Potassium SerPl-sCnc 4.4 3.7-5.1 mmol/L LAB 2075-0(LOINC) Chloride SerPl-sCnc 104 98-107 mmol/L LAB 2028-9(LOINC) CO2 SerPl-sCnc 26 22-30 mmo l/L LAB 99602-7(LOINC) Anion Gap SerPl-sCnc 8 8-15 mmol/L LAB 50033-9(LOINC) Creatinine + eGFR Pnl SerPlBld 124 >=60 mL/min/1 .73m??? Result Comment: Estimated Gl omerular Filtration Rate (eGFR) is calculated using the 2020 CKD-EPI creatinine equation. This equation utilizes serum creatinine, sex, and age as parameters. The creatinine assay has traceable calibration to isotope dilution-mass spectrometry. Refer to KDIGO guidelines for clinical interpretation. In patients with unstable renal function, e.g. those with acute kidney injury, the eGFR may not accurately reflect actual GFR. Performed By: #### 11811-1 # ### [facility] CLIA [id number] CBC PNL BLD AUTO Collected: 5 5:43 AM Status: F Source: [facility] Order Comment: Specimen Type : BLOOD SPECIMEN Ordering Facility: [facility] Address: [address] [place] [address] TYPE CODE TESTS RESULT OUT OF RANGE REFERENCE UNITS LAB 6690-2(LOINC) WBC # Bld Auto 4.47 3.70-11.00 k/uL LAB 789-8(LOINC) RBC # Bld Auto 5.24 High 3.90-5.20 m/uL LAB 718-7(LOINC) Hgb Bld-mCnc 15.1 11.5-15.5 g/dL LAB 4544-3(LOINC) Hct VFr Bld Auto 45.4 36.0-46.0 % LAB 787-2(LOINC) MCV RBC Auto 86.6 80.0-100.0 fL LAB 785-6(LOINC) MCH RBC Qn Auto 28.8 26.0-34.0 pg LAB 786-4(LOINC) MCHC RBC Auto-mCnc 33.3 30.5-36.0 g/dL LAB 45765-2(LOINC) RDW RBC-Rto 13.0 11.5-15.0 % LAB 777-3(LOINC) Platelet # Bld Auto 264 150-400 k/uL LAB 53420-7(LOINC) PMV Bld Auto 9.5 9.0-12.7 fL LAB 771-6(LOINC) nRBC # Bld Auto <0.01 <0.01 k/uL Performed By: #### 74751-3 # ### [facility] CLIA [id number] STATES [facility] ED NOTE Observed: 10/08/2024 4:10 AM Status: COMPLETED Source: [facility]NO ID: [id number] Author: JACKIE PIERRE RN Service: ? Author Type: Registered Nurse Type: ED Notes Filed: 10/08/2024 04:18 Note Text: Pt presents to ED from home for complaint of episodes of irregular menstrual bleeding since February and a general feeling of weakness x 2 days. Pt has had several ultrasounds done and has been dx's with uterine fibroids. Pt's PROGRAM INSTRUCTOR DYSLEXIA TEACHER/CNM was last seen in June (Shahnaz Rush). [...] up, bed in locked and low position PROGRESS Observed: 09/16/2024 11:55 AM Status: COMPLETED Source: [facility] HNO ID: [id number] Author: ?, ?, ? Service: ? Author Type: ? Type: Progress Notes Filed: 09/16/2024 11:55 Note Text: Sleep Study Check-In Documentation Date: September 16, 2024 Name: Lalitha Garcia Comments: HST was returned in working order with all sleep questionnaires Sohail Montenegro POLYSOMNOGRAM (PSG)/HOME SLEEP APNEA TEST (HSAT) Observed: 09/15/2024 11:34 PM Status: F Source: [facility] at [address], [address] [address] ; Home Sleep Apnea Test (HSAT) Study Report Name: LALITHA GARCIA Date of Study: 09/15/2024 F#: [id number] Age: 28 (: 1995) ESS: 13/24 Neck Circ. (cm): 44.0 Height (cm): 172.0 [...] unattended Type III, minimum of 4 parameters (79214) Procedure: This study was performed using a Type III ambulatory PSG device and was unattended. The patient was instructed on proper use of the device by a registered mechanical engineering technologist. The monitored parameters included heart rate, [...] Signed By: ABILIO MÉNDEZ (09/20/2024 12:45:41 PM) PROGRESS Observed: 09/14/2024 10:40 AM Status: COMPLETED Source: [facility] ID: [id number] Author: ?, ?, ? Service: ? Author Type: ? Type: Progress Notes Filed: 09/16/2024 11:55 Note Text: Nomad#[id number] , +GPS Date shipped out: 09/15/2024 SENT EQUIPMENT MAINTENANCE SUPERVISOR DELIVERY - EQUIPMENT MAINTENANCE SUPERVISOR RETURN Tracking mailout: [phone] Tracking return: [phone] Tracking information inserted above by LSS. Nomad device deployed by another Coordinator II -- 09/14/24 PROGRESS Observed: 09/13/2024 3:45 PM Status: COMPLETED Source: [facility] ID: [id number] Author: LUZ ELENA GALVAN III, PhD Service: [...] Special instructions: None-follow laboratory protocol [facility] Staff Note: I have read the above protocol, edited as needed, and agree to the plan. Luz Elena Galvan III, PhD 4:45 PM, 09/13/2024 PROGRESS Observed: 09/13/2024 3:34 PM Status: COMPLETED Source: [facility] ID: [id number] Author: ?, ?, ? Service: ? Author Type: ? Type: Progress Notes Filed: 09/16/2024 11:55 Note Text: September 13, 2024 An order has been received for Home Sleep Apnea Test (HSAT) from Rin Smith a B. [facility] Staff. Visit prep complete. Comments :No The sleep study is scheduled for 09/15. Insurance: Payor: [facility] MEDICAID / Plan: [facility] [employer] PLAN MEDICAID OF [place] / Product Type: Medicaid / Payer/Plan Subscr Sex Relation Sub. Ins. ID Effective Group Num 1. [facility] MEDICAID * LALITHA GARCIA 1995 Female Self [id number] 08/21/24 [facility] [address] Selina Mckee ED PROV NOTE Observed: 09/11/2024 11:20 AM Status: COMPLETED Source: [facility] ID: [id number] Author: SONIA OVIEDO PA-C Service: Emergency Medicine Author Type: Physician Lighter Captain Type: ED Provider Notes Filed: 09/11/2024 11:49 [...] HISTORY Procedure Laterality Date TONSILLECTOMY AND ADENOIDECTOMY <AGE 13 No family history on [...] et al. YOLANDA 2014 311:1117 and Van Melia N, et al. Faby Int Med 2016 165:253. HIGH SENSITIVITY TROPONIN T (INITIAL) - Normal LIPASE - Normal COMPLETE BLOOD COUNT AND DIFFERENTIAL HIGH SENSITIVITY TROPONIN T (SECOND) Results for orders placed or performed during the hospital encounter of 09/11/24 EKG Impression Sinus rhythm Normal ECG no stemi 1009 Confirmed by JUNAID ROSADO MD ([id number]) on 09/11/2024 10:12:16 AM Procedures ED Course / Clinical Impression Clinical Impressions as of 09/11/24 1148 Chest wall pain Musculoskeletal chest pain MDM / Disposition / Plan Nursing notes have been reviewed. Medical record has been reviewed. 28-year-old female presents to the emergency department for concern of pain of her right chest wall/upper abdomen beneath her right breast. Patient is afebrile, normotensive, and nontoxic Labs revealed no leukocytosis. No acute anemia. No acute kidney injury. D-dimer within normal limits not consistent with pulmonary embolism. Lipase within normal limits. Ultrasound right upper quadrant no evidence of acute cholecystitis. Chest x-ray mild interstitial markings no consolidation At this time, the most likely diagnosis is chest pain, MSK chest wall pain. Given the HANDP, labs and imaging performed today, patient discharged with instructions to follow up with PCP and to return to ED immediately if symptoms worsen or new symptoms develop. Patient understood suspected diagnosis and instructions, amenable to plan with no questions/concerns at this time. Differential Diagnoses - PE Less likely because: not hypoxic and D-dimer negative - ACS Less likely because: EKG without ischemia and no evidence of ACS based on cardiac biomarkers - Pneumothorax Less likely because: bilateral breath sounds and CXR without PTX - Pneumonia Less likely because: lungs clear to auscultation, CXR without infiltrate, no fever, no leukocytosis and HANDP not suggestive Additional complaint based differentials considered: pulmonary embolism, ACS, pneumothorax, pneumonia Management I performed an independent interpretation of the following:imaging Imaging: My interpretation is XR chest no consolidation or pneumothorax Radiology Reports US ABD RIGHT UPPER QUADRANT Final Result IMPRESSION: Normal sonographic appearance of the right upper quadrant. Band Tumbler: [facility] Transcribe Date/Time: Sep 11 2024 10:56A Dictated by : SHIKHA SMALL MD This examination was interpreted and the report reviewed and electronically signed by: SHIKHA SMALL MD on Sep 11 2024 10:57AM EST XR CHEST 1V FRONTAL PORT Final Result IMPRESSION: Mild increased interstitial markings bilaterally. No focal lung consolidation. Band Tumbler: [facility] Transcribe Date/Time: Sep 11 2024 9:55A Dictated by : MAYCO GARCIA MD This examination was interpreted and the report reviewed and electronically signed by: MAYCO GARCIA MD on Sep 11 2024 9:57AM EST Meds Given During Visit ED Medication Administration from 09/11/2024 0857 to 09/11/2024 1148 Date/Time Order Dose Route Action 09/11/2024 1040 EDT famotidine 20 mg injection (PEPCID) 20 mg INTRAVENOUS Given 09/11/2024 1037 EDT keTORolac 15 mg injection (Toradol) 15 mg INTRAVENOUS Given Re-evaluation clinically improved and feeling better Sonia Oviedo PA-C Disposition The patient was discharged. Counseled patient regarding lab results, radiology results and suspected diagnosis. The patient was discussed with the emergency medicine physician on site Dr. Junaid Rosado. SIGNATURE: SANGITA Roth LAILA 09/11/24 1149 HIGH SENSITIVITY TROPONIN T (SECOND) Collected: 09/11/2024 11:00 AM Status: F Source: [facility] Order Comment: Specimen Type : BLOOD SPECIMEN Ordering Facility: [facility] Address: [address] [place] [address] TYPE CODE TESTS RESULT OUT OF RANGE REFERENCE UNITS LAB 80431-1(LOINC) Troponin T SerPl HS-mCnc <6 <12 ng/L Performed By: #### [id number] # ### [facility] CLIA [id number] [place] [address] ALLIED HEALTH Observed: 09/11/2024 10:48 AM Status: COMPLETED Source: [facility] ID: [id number] Author: FANNY VALIENTE RDMS Service: Radiology Author Type: Technology Applications Engineer Type: Allied Health Filed: 09/11/2024 10:48 Note [...] PATIENT PRESENTS WITH AN IMPLANTABLE OR ATTACHED GUITAR PLAYER: No RADIOLOGY DEPARTMENT: Ultrasound RUQ PERIPHERAL IV DATA: Inpatient: see LDA documentation SIGNED BY: Fanny Valiente RDMS September 11, 2024 10:48 AM US ABD RIGHT UPPER QUADRANT Observed: 10:47 AM Status: F Source: [facility] * * *Final Report* * * DATE [...] sonographic appearance of the right upper quadrant. Band Tumbler: [facility] Transcribe Date/Time: Sep 11 2024 10:56A Dictated by : SHIKHA SMALL MD This examination was interpreted and the report reviewed and electronically signed by: SHIKHA SMALL MD on Sep 11 2024 10:57AM EST [id number] XR CHEST 1V FRONTAL PORT Observed: 09/11 9:51 AM Status: F Source: [facility] * * *Final Report* * * DATE [...] interstitial markings bilaterally. No focal lung consolidation. Band Tumbler: [facility] Transcribe Date/Time: Sep 11 2024 9:55A Dictated by : MAYCO GARCIA MD This examination was interpreted and the report reviewed and electronically signed by: MAYCO GARCIA MD on Sep 11 2024 9:57AM EST [id number] EKG Observed: 09/11/2024 9:35 AM Status: F Source: [facility] Ventricular Rate : 86 BPM Atrial Rate : 87 BPM P-R Interval : 162 ms QRS Duration : 95 ms Q-T Interval : 378 ms QTC Calculation(Bazett) : 453 ms Calculated P Center : 62 degrees Calculated R Center : 89 degrees Calculated T Center : 34 degrees Sinus rhythm Normal ECG no stemi 1009 Confirmed by JUNAID ROSADO MD ([id number]) on 09/11/2024 10:12:16 AM NAME : LALITHA GARCIA PID : [id number] : 1995 Gender : Female Race : Other ORD : Procedure Date : Sep 11 2024 09:35:02 Edit Date : Sep 11 2024 10:12:22 Diagnosis: Sinus rhythm Normal ECG no stemi 1009 Confirmed by JUNAID ROSADO MD ([id number]) on 09/11/2024 10:12:16 AM Test Reason : Location : 18 : ED [place] [address] Overread By : JUNAID ROSADO MD Edited By : JUNAID ROSADO MD Referred By : , Acquired by : , CBC W AUTO DIFF BLD Collected: 09/11/2024 9:[address] atus: F Source: [facility] Order Comment: Specimen Type : BLOOD SPECIMEN Ordering Facility: [facility] Address: [address] [place] [address] TYPE CODE TESTS RESULT OUT OF RANGE REFERENCE UNITS LAB 6690-2(LOINC) WBC # Bld Auto 5.79 3.70-11.00 k/uL LAB 789-8(LOINC) RBC # Bld Auto 4.88 3.90-5.20 m/ uL LAB 718-7(LOINC) Hgb Bld-mCnc 14.1 11.5-15.5 g/dL LAB 4544-3(LOINC) Hct VFr Bld Auto 42.8 36.0-46.0 % LAB 787-2(LOINC) MCV RBC Auto 87.7 80.0-100.0 fL LAB 785-6(LOINC) MCH RBC Qn Auto 28.9 26.0-34.0 p g LAB 786-4(LOINC) MCHC RBC Auto-mCnc 32.9 30.5-36.0 g/dL LAB 24468-5([facility]) RDW RBC-Rto 13.5 11.5-15.0 % LAB 777-3([facility]) Platelet # Bld Auto 266 150-400 k/uL LAB 24734-3([facility]) PMV Bld Auto 9.8 9.0-12.7 fL LAB 770-8([facility]) Neutrophils/leuk NFr Bld Auto 49.4 % LAB 751-8([facility]) Neutrophils # Bld Auto 2.86 1.45-7.50 k/uL LAB 736-9([facility]) Lymphocytes/leuk NFr Bld Auto 38.3 % LAB 731-0([facility]) Lymphocytes # Bld Auto 2.22 1.00-4.00 k/uL LAB 5905-5([facility]) Monocytes/leuk NFr Bld Auto 8.1 % LAB 742-7([facility]) Monocytes # Bld Auto 0.47 <0.87 k/uL LAB 713-8([facility]) Eosinophil/leuk NFr Bld Auto 3.3 % LAB 711-2([facility]) Eosinophil # Bld Auto 0.19 <0.46 k/uL LAB 706-2([facility]) Basophils/leuk NFr Bld Auto 0.7 % LAB 704-7([facility]) Basophils # Bld Auto 0.04 <0.11 k/uL LAB 11978-4([facility]) Imm Granulocytes/justa k NFr Bld Auto 0.2 % LAB 19822-6([facility]) Imm Granulocytes # Bld Auto <0.03 <0.10 k/uL LAB 60469-2([facility]) nRBC/100 WBC Bld-Rto 0.0 /100 WBC LAB 771-6([facility]) nRBC # Bld Auto <0.01 <0.01 k/u L LAB 71049-0([facility]) Differential method Bld Auto Performed By: #### 51664-5 # ### [facility] CLIA [id number] [place] [address] [place] D DIMER FEU PPP-MCNC Collected: 025 9:30 AM Status: F Source: [facility] Order Comment: Specimen Type : BLOOD SPECIMEN Ordering Facility: [facility] Address: [address] [place] [address] TYPE CODE TESTS RESULT OUT OF RANGE REFERENCE UNITS LAB 81891-9([facility]) D dimer FEU PPP-mCnc 280 <500 ng/mL FEU Performed By: #### 31212-3 # ### [facility] CLIA [id number] STATES OF [facility] COMP METAB 2000 PNL SERPL Collected: 9:30 AM Status: F Source: [facility] Order Comment: Specimen Type : BLOOD SPECIMEN Ordering Facility: [facility] Address: [address] [place] [address] TYPE CODE TESTS RESULT OUT OF RANGE REFERENCE UNITS LAB 2885-2(LOINC) Prot SerPl-mCnc 6.5 6.3-8.0 g/dL LAB 1751-7(LOINC) Albumin SerPl-mCnc 4.0 3.9-4.9 g/dL LAB 51455-5(LOINC) Calcium SerPl-mCnc 9.0 8.5-10.2 mg/dL LAB 1975-2(LOINC) Bilirub SerPl-mCnc 0.3 0.2-1.3 mg/dL LAB 6768-6(LOINC) ALP SerPl-cCnc 71 34-123 U/L LAB 1920-8(LOINC) AST SerPl-cCnc 17 13-35 U/L LAB 1742-6(LOINC) ALT SerPl-cCnc 20 7-38 U/L LAB 2345-7(LOINC) Glucose SerPl-mCnc 106 High 74-99 mg/dL Result Comment: The [place] Diabetes Association (ADA) provides guidance for cutoff [...] Standards of Medical Care in Diabetes 2016, [place] Diabetes Association. Diabetes Care. 2016.39(Suppl 1). LAB 3094-0(LOINC) BUN SerPl-mCnc 6 Low 7-21 mg/ dL LAB 2160-0(LOINC) Creat SerPl-mCnc 0.62 0.58-0.96 mg/dL LAB 2951-2(LOINC) Sodium SerPl-sCnc 138 136-144 mmol/L LAB 2823-3(LOINC) Potassium SerPl-sCnc 4.0 3.7-5.1 mmol/L LAB 2075-0(LOINC) Chloride SerPl-sCnc 105 98-107 mmol/L LAB 2027-9(LOINC) CO2 SerPl-sCnc 25 22-30 mmo l/L LAB 82527-7(LOINC) Anion Gap SerPl-sCnc 8 8-15 mmol/L LAB 94935-8(LOINC) Creatinine + eGFR Pnl SerPlBld 125 >=60 mL/min/1 .73m??? Result Comment: Estimated Gl omerular Filtration Rate (eGFR) is calculated using the 2020 CKD-EPI creatinine equation. This equation utilizes serum creatinine, sex, and age as parameters. The creatinine assay has traceable calibration to isotope dilution-mass spectrometry. Refer to KDIGO guidelines for clinical interpretation. In patients with unstable renal function, e.g. those with acute kidney injury, the eGFR may not accurately reflect actual GFR. Performed By: #### 82216-6, [id number], 3040-3, #### [facility] CLIA [id number] [address] [place] [address] [place] HIGH SENSITIVITY TROPONIN T (INITIAL) Collected: 09/11/2024 9:30 AM Status: F Source: [facility] Order Comment: Specimen Type : BLOOD SPECIMEN Ordering Facility: [facility] Address: [address] [place] [address] TYPE CODE TESTS RESULT OUT OF RANGE REFERENCE UNITS LAB 29674-5(LOINC) Troponin T SerPl HS-mCnc <6 <12 ng/L Performed By: #### 14279-7, [id number], 3040-3, #### [facility] CLIA [id number] [place] [address] [place] LIPASE SERPL-CCNC Collected: 09/11/2024 9:30 AM Stat us: F Source: [facility] Order Comment: Specimen Type : BLOOD SPECIMEN Ordering Facility: [facility] Address: [address] [place] [address] TYPE CODE TESTS RESULT OUT OF RANGE REFERENCE UNITS LAB 3040-3(LOINC) Lipase SerPl-cCnc 33 16-61 U/L Performed By: #### 71962-8, [id number], 3040-3, 10247-0 #### [facility] CLIA [id number] [address] [place] [address] [place] MAGNESIUM SERPL-MCNC Collected: 09/11/2024 9:30 AM S tatus: F Source: [facility] Order Comment: Specimen Type : BLOOD SPECIMEN Ordering Facility: [facility] Address: [address] [place] [address] TYPE CODE TESTS RESULT OUT OF RANGE REFERENCE UNITS LAB 77921-5(LOINC) Magnesium SerPl-mCnc 1.7 1.7-2.3 mg/dL Performed By: #### 09503-8, [id number], 3040-3, 09808-5 #### [facility] CLIA [id number] [address] [place], [place] [address] [place] ED NOTE Observed: 09/11/2024 9:04 AM Status: COMPLETED Source: [facility] HNO ID: [id number] Author: STEPHANIE PASTRANA RN Service: ? Author Type: Registered Nurse Type: ED Notes Filed: 09/11/2024 09:04 Note Text: Bed: ED-16 Expected date: Expected time: Means of arrival: Comments: ED NOTE Observed: 09/11/2024 9:04 AM Status: COMPLETED Source: [facility]NO ID: [id number] Author: ARTI AVERY RN Service: Emergency Medicine Author Type: Registered Nurse Type: ED Notes Filed: 09/11/2024 09:05 Note Text: Pt c/o pain soreness under r breast that started today. No sob noted ED NOTE Observed: 09/09/2024 10:52 PM Status: COMPLETED Source: [facility] HNO ID: [id number] Author: AVERY LANGSTON HUC Service: Treatment Planning Author Type: Health Adjunct Professor Of English Type: ED Notes Filed: 09/16/2024 11:34 Note [...] improve your ED visit? No [facility] SIGNATURE: ALBERT Meehan PATIENT NAME: Lalitha Garcia DATE: September 16, 2024 TIME: 11:34 AM ED NOTE Observed: 09/09/2024 10:49 PM Status: COMPLETED Source: [facility] HNO ID: [id number] Author: BLAS TAO RN Service: ? Author Type: Registered Nurse Type: ED Notes Filed: 09/09/2024 22:49 Note Text: Patient discharged. Discharge paperwork reviewed. Patient verbalized understanding. No issues or concerns verbalized. ED PROV NOTE Observed: 09/09/2024 8:53 PM Status: COMPLETED Source: [facility] HNO ID: [id number] Author: BRIT PAUL DO Service: Emergency Medicine [...] HISTORY Procedure Laterality Date TONSILLECTOMY AND ADENOIDECTOMY <AGE 13 No family history on [...] reactive. Extraoccular motion is intact. No visual campos deficits. No dysmetria, dysdiadochokinesis, or cerebellar ataxia. Strength and sensation intact and equal to bilateral upper and lower extremities. Diagnostic Testing ED Labs Ordered and Reviewed URINE HCG (ED POC) UA DIP,URINE HCG(ED-POC) Procedures ED Course / Clinical Impression Clinical Impressions as of 09/09/24 2320 Tension-type headache, not intractable, unspecified chronicity pattern Elevated blood-pressure reading without diagnosis of hypertension MDM / Disposition / Plan Patient was not acutely ill or toxic in appearance, was afebrile and remained hemodynamically stable throughout their stay in the emergency department. Neurologic exam was nonfocal and reassuring. She was given Toradol, Reglan and Benadryl. She was given a prescription for cyclobenzaprine. She is given referrals to neurology and PROGRAM INSTRUCTOR. We discussed likelihood of tension type headache and potentially component of DARWIN. She does have an upcoming sleep study already scheduled. Patient was appropriate for discharge, outpatient follow-up and potential therapy. I discussed reasons to return as well as when to obtain follow-up and understanding was demonstrated. I have personally reviewed any available imaging, radiology reports, laboratory results and EKGs. ---This note was created with [employer] dictation software which does not check for spelling, punctuation, grammar or syntax--- Differential Diagnoses - Tension type headache - DARWIN - Migraine is less likely for the following reason(s): HANDP not suggestive - Meningitis - Pseudotumor Management Meds Given During Visit ED Medication Administration from 09/09/20241954 to 09/09/20242251 Date/Time Order Dose Route Action 09/09/20242126 EDT keTORolac 15 mg injection (Toradol) 15 mg INTRAMUSCULAR Given 09/09/20242126 EDT metoclopramide HCl 5 mg (REGLAN) 5 mg ORAL Given 09/09/20242126 EDT diphenhydrAMINE 25 mg capsule (BENADRYL) 25 mg ORAL Given Disposition The patient was discharged. See MDM narrative Counseled patient regarding suspected diagnosis. 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 Author Type: Registered Nurse Type: ED Notes Filed: 09/09/2024 20:01 Note Text: Pt presents to the ED for an ongoing migraine that has been present the last two weeks. Pt took both advil and extra strength tylenol with no relief. Pt does have family history of migraines. PROGRESS Observed: 09/07/2024 2:00 PM Status: COMPLETED Source: [facility] HNO ID: [id number] Author: RIN MORGAN MD Service: ? Author Type: Physician Type: Progress Notes Filed: 09/07/2024 17:44 Note Text: BMI Obesity Medicine FollowUp Note Distance Health Visit September 07, 2024 I have communicated my name and active licensure. The patient's identity and physical location were verified at the time of this visit. Either the patient or their legal tax representative has been informed of the risks and benefits of -- and alternatives to -- treatment through a remote evaluation and consents to proceed with the evaluation remotely. Patient Summary: Lalitha Garcia is 28 year old Female who presents virtually for follow-up evaluation of her obesity and related complications to the [facility]. In our previous visits we have outlined [...] HISTORY Procedure Laterality Date TONSILLECTOMY AND ADENOIDECTOMY <AGE 13 Physical Exam: LMP 07/09/2024 [...] anxiety Since she esablished care at the BMI; weight gain +26 lbs; unable to tolerate [...] establish care with PCP and f/u with STORY ANALYST along with psychiatry. Plan: -- Discontinue metformin -- Start Trulicity 0.75 mg/w and monitor for side effects. If feeling ok after 4 weeks, send [employer] message and we can increase dose if interested and well tolerated. MEDICATION IS CONTRAINDICATED WITH -- Healthy diet to prevent side effects; stay well hydrated with water or zero calorie drinks. -- Get Sleep Study as soon as possible; phone [phone] -- Establish care with PCP in Internal [facility] as soon as possible; please call [phone] -- F/u with STORY ANALYST and discuss control while on Trulicity -- [...] you, Rin Morgan MD [facility] / General Surgery I spent a total of 40 minutes on the date of the service which included preparing to see the patient, [id number] patient care, completing clinical documentation, obtaining and/or reviewing separately obtained history, performing a medically appropriate examination, counseling and educating the patient/family/caregiver, and ordering medications, tests, or procedures. ED NOTE Observed: 07/20/2024 6:57 PM Status: COMPLETED Source: [facility] HNO ID: [id number] Author: JENARO FIORE RN Service: Emergency Medicine Author Type: Registered Nurse Type: ED Notes Filed: 07/20/2024 18:58 Note Text: ..Patient was given a disposition of Eloped Lab Studies There are no in process or resulted labs at this time Radiology Studies There are no in process or resulted radiology studies at this time ED NOTE Observed: 07/20/2024 4:20 PM Status: COMPLETED Source: [facility] HNO ID: [id number] Author: AVERY GOVEA, TOMMIE Service: ? Author Type: Registered Nurse Type: ED Notes Filed: 07/20/2024 16:20 Note Text: Called twice, no answer in lobby. ED TRIAGE NOTE Observed: 07/20/2024 12:25 PM Status: COMPLETED Source: [facility] HNO ID: [id number] Author: EARLENE CLAUDIO DO Service: Emergency Medicine [...] from bedside clinician. SIGNATURE: Earlene Claudio DO ED NOTE Observed: 07/20/2024 12:21 PM Status: COMPLETED Source: [facility] HNO ID: [id number] Author: SKIP BRAGG, TOMMIE Service: ? Author Type: Registered Nurse Type: ED Notes Filed: 07/20/2024 12:25 Note Text: C/o tremors/vertigo /ringing onset 2 hrs Denies chest pain PROGRESS Observed: 07/15/2024 9:50 PM Status: COMPLETED Source: [facility] HNO ID: [id number] Author: SARINA MANDUJANO MD Service: ? Author Type: Physician Type: Progress Notes Filed: 07/15/2024 22:04 Note Text: The patient presents for requested ultrasound. Full report available in the "Imaging" tab in Epic. Sarina Mandujano MD INSULIN [facility] Collected: 10:11 AM Status: F Source: [facility] Order Comment: Specimen Type : BLOOD SPECIMEN Ordering Facility: [facility] Address: [address] [id number] TYPE CODE TESTS RESULT OUT OF RANGE REFERENCE UNITS LAB 93969-4(LOINC) Insulin SerPl-aCnc 16.2 2.6-24.9 uU/mL Result Comment: Reference in tervals established for fasting specimens. Performed By: #### 09510-3 # ### [facility] CLIA [id number] [address] [facility] [id number] [place], [place] [id number] [place] LIPID 1995 PNL SERPL Collected: 025 10:11 AM Status: F Source: [facility] Order Comment: Specimen Type : BLOOD SPECIMEN Ordering Facility: [facility] Address: [address] [place] [address] TYPE CODE TESTS RESULT OUT OF RANGE REFERENCE UNITS LAB 2093-3(LOINC) Cholest SerPl-mCnc 181 <200 mg/dL Result Comment: <200 mg/dL, Desirable 200-239 mg/dL, Borderline high >239 mg/dL, High LAB 2571-8(LOINC) Trigl SerPl-mCnc 113 <150 mg/dL Result Comment: <150 mg/dL, Normal 150-199 mg/dL, Borderline high 200-499 mg/dL, High >499 mg/dL, Very high LAB 2085-9(LOINC) HDLc SerPl-mCnc 36 Low >39 mg/dL Result Comment: 40-59 mg/dL, Acceptable >59 mg/dL, High: Negative risk factor for coronary heart disease <40 mg/dL, Low: Positive risk factor for coronary heart disease LAB 01357-0(LOINC) NonHDLc SerPl-mCnc 145 High <130 mg/dL Result Comment: <130 mg/dL, Optimal 130-159 mg/dL, Near optimal/above optimal 160-189 mg/dL, Borderline high 190-219 mg/dL, High >219 mg/dL, Very high Secondary prevention optimal non HDL Cholesterol levels are recommended to be <100 mg/dL LAB FT FASTING TIME 12 hrs LAB 41226-7(LOINC) VLDLc SerPl Calc-mCnc 23 <30 mg/dL LAB 9830-1(LOINC) Cholest/HDLc SerPl 5.03 <5.10 LAB 2089-1(LOINC) LDLc SerPl-mCnc 122 High <100 mg/dL Result Comment: <100 mg/dL, Optimal 100-129 mg/dL, Near optimal/above optimal 130-159 mg/dL, Borderline high 160-189 mg/dL, High >189 mg/dL, Very high Secondary prevention optimal LDL Cholesterol levels are recommended to be < 70 mg/dL LAB 42017-0(LOINC) LDLc/HDLc SerPl 3.39 High <2.54 Result Comment: Reference: 1. National Cholesterol Education Program ATP III Guideline At-A-Glance Quick Desk Reference: National Heart, Lung, and Blood [place]. National Institutes of Health. 2001: NIH Publication No. 01-3305. 2. An International Atherosclerosis Society position paper: global recommendations for the management of dyslipidemia: executive summary, Atherosclerosis. 2014: 232(2):410-413. Performed By: #### 59089-5 # ### [facility] CLIA [id number] [address] [place] [address] [place] [facility] CLIA [id number] [address] [place] [address] [place] TESTOSTERONE, FREE AND TOTAL , BY EQUILIBRIUM ULTRAFILTRATION MASS SPECTROMETRY Collected: 07/15/2024 10:11 AM Status: F Source: [facility] Order Comment: Specimen Type : BLOOD SPECIMEN Ordering Facility: [facility] Address: [address] [place] [address] TYPE CODE TESTS RESULT OUT OF RANGE REFERENCE UNITS LAB 2986-8(LOINC) Testost SerPl-mCnc 93.7 High 10.0-55.0 ng/dL LAB 2991-8(LOINC) Testost Free SerPl-mCnc 2.14 High 0.10-0.85 ng/dL LAB 74862-1(LOINC) Testost Free MFr SerPl 2.28 0.50-2.80 % Performed By: #### TFTEST ## ## [facility] CLIA [id number] [address] [facility] [place] [address] CNOV Observed: 07/09/2024 2:00 PM Status: COMPLETED Source: [facility] Office Visit (OBGYWM) LALITHA GARCIA ([id number]) 1995 F Date Time Provider Department 07/09/24 2:00 PM JOSEY RUSH OBGYWTatum During your visit today, we recorded the following information about you: Blood pressure Weight Height Last Period 12878 169.2 kg 1.727 m 07/09/24 Josey Rush [...] taking anything for control. Was seen at [facility] but do not have records for US or labs. OB History T0 L0 SAB0 IAB0 Ectopic0 Multiple0 Live Births0 Crew Scheduler History LMP: 07/09/2024 (Exact Date), Having periods Age at Menarche: Age at First : Age at Menopause: Crew Scheduler History Comments: Sexual Activity: Yes; Male Contraception: No contraception data on record History reviewed. No pertinent past medical history. PAST SURGICAL HISTORY Procedure Laterality Date TONSILLECTOMY AND ADENOIDECTOMY <AGE 13 No family history on [...] not performed. EXAM: BP 128/78 Ht 5' 8" (1.73m) Wt 373 lb (169.2kg) LMP 07/09/2024 BMI 56.73 kg/(m2). GENERAL: pleasant, female in no apparent distress HEENT: Normocephalic and atraumatic NECK: Supple and full range of motion DERMATOLOGY: Normal and without lesions CHEST: Normal inspiratory effort NEURO: alert and oriented x3,exam grossly non-focal EXTREMITIES: normal ASSESSMENT AND PLAN: Assessment AND Plan Ovarian cyst, right Orders: PELVIC US WHI; Future -Request records from [facility] Abnormal uterine bleeding (AUB) Orders: TESTOSTERONE, FREE [...] uterine bleeding (AUB) [N93.9] Order(s):PELVIC US WHI [6315505] Order #: [id number]: 1 FUTURE TESTOSTERONE, FREE AND TOTAL, BY EQUILIBRIUM ULTRAFILTRATION MASS SPECTROMETRY [SQTFTEST] Order #: [id number] FUTURE LIPID PANEL BASIC [SQLIPB] Order #: [id number] FUTURE INSULIN, TOTAL, SERUM [SQINSULN] Order #: [id number] FUTURE Prescriptions as of 07/13/2024 - metFORMIN [...] for Encounter Date Provider Department Center 07/09/2024 [id number] RSUH Encounter Status:Closed by JOSEY RUSH on 07/13/24 PROGRESS Observed: 07/09/2024 1:59 PM Status: COMPLETED Source: [facility] ID: [id number] Author: JOSEY RUSH APRN.CNM Service: ? Author Type: Taffy Candy Maker Type: Progress Notes Filed: 07/13/2024 12:02 [...] taking anything for control. Was seen at [facility] but do not have records for US or labs. OB History T0 L0 SAB0 IAB0 Ectopic0 Multiple0 Live Births0 Crew Scheduler History LMP: 07/09/2024 (Exact Date), Having periods Age at Menarche: Age at First : Age at Menopause: Crew Scheduler History Comments: Sexual Activity: Yes; Male Contraception: No contraception data on record History reviewed. No pertinent past medical history. PAST SURGICAL HISTORY Procedure Laterality Date TONSILLECTOMY AND ADENOIDECTOMY <AGE 13 No family history on [...] not performed. EXAM: BP 128/78 Ht 5' 8" (1.73m) Wt 373 lb (169.2kg) LMP 07/09/2024 BMI 56.73 kg/(m2). GENERAL: pleasant, female in no apparent distress HEENT: Normocephalic and atraumatic NECK: Supple and full range of motion DERMATOLOGY: Normal and without lesions CHEST: Normal inspiratory effort NEURO: alert and oriented x3,exam grossly non-focal EXTREMITIES: normal ASSESSMENT AND PLAN: Assessment AND Plan Ovarian cyst, right Orders: PELVIC US WHI; Future -Request records from [facility] Abnormal uterine bleeding (AUB) Orders: TESTOSTERONE, FREE AND TOTAL, BY EQUILIBRIUM ULTRAFILTRATION MASS SPECTROMETRY; Future LIPID PANEL BASIC; Future INSULIN, TOTAL, SERUM; Future Josey Rush APRN.CNM PROGRESS Observed: 05/14/2024 9:00 AM Status: COM[facility]TED [id number] Author: RIN MORGAN MD Service: ? Author Type: Physician Type: Progress Notes Filed: 05/24/2024 11:10 Note Text: BMI Obesity Medicine Consult Virtual Visit 05/14/24 I have communicated my name and active licensure. The patient's identity and physical location were verified at the time of this visit. 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 -- We discussed several strategies [...] journal - Calorie goal for weight loss: 1226-7746 magdaleno/day for women; 5126-7016 magdaleno/day for men. If your current calorie [...] training and cardiovascular exercise is the best parts counterman plan. An overall goal of 200 minutes [...] you, Rin Morgan MD [facility] / General Surgery I spent a total of 61 minutes on the date of the service which included preparing to see the patient, qpus-so-jyei patient care, completing clinical documentation, obtaining and/or [...] coverage criteria, we won't pursue an appeal. Addendum 05/24/2024 - OS Labs sent via [employer] and reviewed. - Patient interested in metformin given current medications, chronic conditions and no control PROGRESS Observed: 05/07/2024 10:49 AM Status: COMPLETED Source: [facility] ID: [id number] Author: GWEN ZHANG, PhD Service: ? Author Type: Psychologist Type: Progress Notes Filed: 05/07/2024 12:07 Note Text: Lalitha Garcia [id number] May 07, 2024 [facility] M61 Psychology Orientation/ Welcome Group CPT: [...] psychology consultation visit. Gwen Zhang, Ph.D. Psychologist PROGRESS Observed: 04/30/2024 12:21 PM Status: COMPLETED Source: [facility] HNO ID: [id number] Author: GWEN ZHANG, PhD Service: ? Author Type: Psychologist Type: Progress Notes Filed: 04/30/2024 12:22 Note Text: [facility] Progress Note April 30, 2024 Patient was a no-show for the Psychology Orientation/Welcome group. If she reschedules, it should be within another Welcome group. Gwen Zhang, Ph.D. Psychologist ALLERGIES DATE TYPE / CODE NAME / CODE REACTION SEVERITY SOURCE 07/09/2024 DRUG INGREDI/6298680 03(SNOMED CT) LATEX ITCHING [facility] Drug Class/399063495 (SNOMED CT) NO KNOWN ALLERGIES [facility] ENCOUNTERS ADMIT/DISCHARGE ACCOUNT NUMBER ADMITTING ENCOUNTER CLASS LOCATION SOURCE 02/17/2025/02/18/20 [id number] [facility] INTBed[facility] 1 [facility] 12/08/2024/12/09/19 25 [id number] [facility] 11/16/2024/11/18/19 25 [id number] [facility]ERS[facility]: ITABed: 01 [facility] 11/02/2024/11/03/19 [id number] [facility] 10/08/2024/10/09/19 25 [id number] [facility] 10/08/2024/10/09/19 25 [id number] [facility]MM[facility] EDBed: 13 [facility] 09/15/2024/09/16/19 25 [id number] [facility] 09/11/2024/09/12/19 25 [id number] [facility]MMEM[facility]: EDBed: 16 [facility] 09/09/2024/09/10/19 25 [id number] [facility]: EDBed: 05 [facility] 09/07/2024/09/08/19 25 [id number] [facility] 09/02/2024/09/03/19 25 [id number] [facility]FCPS [facility] 07/15/2024/07/15/19 25 [id number] [facility] 07/15/2024/07/15/19 25 [id number] [facility]WOL[facility] 07/09/2024/07/09/19 25 [id number] [facility] 05/14/2024/05/14/20 24 [id number] [facility]GS[facility] 05/07/2024/05/07/20 24 [id number] [facility]AVPS [facility] 04/30/2024 [id number] [facility] PAYERS ENCOUNTER GUARANTOR PAYER SUBSCRIBER SOURCE 02/17/2025 Primary Insuranc e:[employer] COMMUNITY [place]AN [place]: [id number] Date:2924-48-86Echn Name:Deo Winn ZABRINAB: [id number] [address] [id number] [facility] 12/08/2024 Primary Insuranc e:[employer] COMMUNITY [place]AN [place] Number: [id number] Date:3517-64-35Yphu Name:Deo Winn ZABRINAB: [id number] [address] [id number] [facility] 11/16/2024 Primary Insuranc e:[facility] COMMUNITY PLAN MEDICAID OF [facility] Number: [id number] Date:4351-80-60Qihk Name:Deo Winn SMARTDOB: [id number] [address] 11/02/2024 Primary Insuranc e:CRITICAL ACCESS HOSPITAL PLAN MEDICAID OF [facility] Number: [id number] Date:3729-36-51Lykk Name:Deo Winn SMARTDOB: [id number] [address] 10/08/2024 Primary Insuranc e:CRITICAL ACCESS HOSPITAL PLAN MEDICAID OF [facility] Number: [id number] Date:7758-15-94Dgoc Name:Deo Winn SMARTDOB: [id number] [address] 10/08/2024 Primary Insuranc e:CRITICAL ACCESS HOSPITAL PLAN MEDICAID OF [facility] Number: [id number] Date:9930-42-14Ryrz Name:Deo Winn SMARTDOB: [id number] [address] 09/15/2024 Primary Insuranc e:CRITICAL ACCESS HOSPITAL PLAN MEDICAID OF [facility] Number: [id number] Date:1988-52-55Yxqh Name:Deo Winn SMARTDOB: [id number] [address] 09/11/2024 Primary Insuranc e:CRITICAL ACCESS HOSPITAL PLAN MEDICAID OF [facility] Number: [id number] Date:0600-59-61Hknh Name:Deo Winn SMARTDOB: [id number] [address] 09/09/2024 Primary Insuranc e:CRITICAL ACCESS HOSPITAL PLAN MEDICAID OF [facility] Number: [id number] Date:2745-55-66Hlya Name:Deo Winn SMARTDOB: [id number] [place] [address] [facility] 09/07/2024 Primary Insuranc e:CRITICAL ACCESS HOSPITAL PLAN MEDICAID [facility] Number: [id number] Date:3094-02-95Rppo Name:Deo Winn SMARTDOB: [id number] [address] [id number] [facility] 07/15/2024 Primary Insuranc e:CRITICAL ACCESS HOSPITAL PLAN MEDICAID OF [facility] Number: [id number] Date:0634-25-26Igrb Name:Deo Winn SMARTDOB: [id number] [place] [address] [facility] 07/15/2024 Primary Insuranc e:CRITICAL ACCESS HOSPITAL PLAN MEDICAID [facility] Number: [id number] Date:0999-45-80Hlgt Name:Deo Winn SMARTDOB: [id number] [place] [address] [facility] 07/09/2024 Primary Insuranc e:CRITICAL ACCESS HOSPITAL PLAN MEDICAID [facility] Number: [id number] Date:9450-49-72Gvtv Name:Deo Winn SMARTDOB: [id number] [place] [address] [facility] 05/14/2024 Primary Insuranc e:CRITICAL ACCESS HOSPITAL PLAN [place] Number: [id number] Date:2935-95-81Ogfc Name:Deo Winn SMARTDOB: [id number] [place] [address] [facility] 05/07/2024 Primary Insuranc e:CRITICAL ACCESS HOSPITAL PLAN MEDICAID OF [facility] Number: [id number] Date:1873-96-77Siei Name:Deo Winn SMARTDOB: [id number] [place] [address] [facility] 04/30/2024 Primary Insuranc e:UHC COMMUNITY PLAN [place] Number: [id number] Date:4156-29-63Lehw Name:Deo VILLARREAL: [id number] [facility] [place] [address] [facility]
[2025-03-21 11:05] VITALS: BP 158/104; PULSE 93; RESP 18; TEMP 36.6; O2SAT 99; BMI 64.7
--- NOTE | 2025-03-21 11:44 | VDLE_ITS ---
Reason For Study Reason For Study: Swelling LLE RIGHT LEFT CFV is compressible, spontaneous, phasic, competent GSV is normal. and demonstrates normal augmentation. CFV is compressible, spontaneous, phasic, competent, Procedure and demonstrates normal augmentation. This is a venous duplex using B-mode, color flow and FV is compressible, spontaneous, phasic, competent spectral Doppler. and demonstrates normal augmentation. Exam performed portable in ED. POP V is compressible, spontaneous, phasic, competent The study was technically difficult. and demonstrates normal augmentation. Unable to visualize prox/mid calf veins due to body T/P Trunk is compressible. habitus. PTV is compressible. A preliminary report was called and/or faxed to LT PerV is compressible. Patients RN. VL/Venous Duplex US, Unilateral Interpretation Summary Deep veins of the left lower extremity are patent and compressible segmentally. There is no evidence of left lower extremity deep vein thrombosis. Valvular competence appears intact within the p roximal deep venous system on the left . The left great saphenous vein appears patent and compressible segmentally. The right common femoral vein is patent and compressible . Ordering Physician: José Miguel Clark Performed By: Morena Fuentes, SHANE, RVT
--- NOTE | 2025-03-21 11:44 | EDS_ITS ---
HPI History of Present Illness HPI Narrative: Patient presents with left leg pain and swelling that became worse today. Patient states she was seen here for this recently and was told to keep her leg elevated. Patient states today when she was getting ready to leave work, she started having some shortness of breath and pressure in her chest. Patient states it is worse with walking. Patient states she feels dizzy with this. Patient denies any nausea or vomiting. Patient denies any fevers or chills. Patient denies any cough. Chief Complaint: Lower Extremity Injury Informant: patient Onset/Context/Timing Onset: Today Context: Gradual Onset Timing: Continuous Quality of Pain: Aching Location: Left lower leg Worsened by: Walking Relieved by: Nothing Associated Symptoms Associated Symptoms: Negative for Parasthesia, Weakness or Loss of Funtion PFSH PFSH Medical History Hypertension Ovarian cyst Preeclampsia Home Medications Medication Instructions Recorded Last Taken Type hydroxyzine HCl 10 mg tablet 10 mg PO BID PRN PRN anxi ety 03/21/25 Unknown History Allergy/AdvReac Type Severity Reaction Status Date / Time latex AdvReac Rash Verified 03/21/25 11:05 Family History Aunt Breast cancer, Onset Age: 34 Grandfather Throat cancer Surgical History History of tonsillectomy Social History adopted: No number of children: 1 current occupational status: employed sexually active: Yes Smoking Status: Current every day smoker tobacco type: cigarettes and e- cigarettes alcohol intake: never substance use type: does not use and marijuana caffeine: Yes Type: carbonated beverages danna/baptist: AGNOSTIC seatbelt use: always do you feel safe at home: Yes ROS ROS ED Constitutional Constitutional ED: Denies chills or fever(s) Eyes Eyes: Denies blurry vision or change in vision ENT ENT ED: Denies rhinorrhea or sore throat Cardiovascular Cardiovascular: Reports chest pain; Denies palpitations Respiratory/Chest Respiratory/Chest: Reports dyspnea; Denies cough Gastrointestinal Gastrointestinal: Denies nausea or vomiting Genitourinary Genitourinary ED: Denies dysuria or hematuria Musculoskeletal Musculoskeletal: Reports back pain and neck pain Integumentary Denies abscess or rash Neurologic Neurologic: Denies headache(s) or weakness Allergic/Immunologic Allergic/Immunologic ED: Denies mouth swelling or urticaria EXAM Physical Exam Const Vital Signs: 03/21/25 11:05 Temperature 97.9 F Temperature Source Oral Pulse Rate 93 Respiratory Rate 18 Blood Pressure 158/104 H Blood Pressure Mean 122 Pulse Ox 99 Oxygen Delivery Method Room Air Positive well nourished and well developed General Appearance ED: well developed and NAD HEENT Reports moist mucous membranes Neck full ROM Resp normal respiratory effort and clear to auscultation bilaterally Cardio regular rate and regular rhythm GI non-tender and non-distended Palpation: soft Extremity full ROM Extremity Narrative: There is mild edema and tenderness over the left calf. There is no deformity noted. There is good pulse palpated. Neuro oriented x3, CN's II-XII intact bilaterally, moves all extremities and no sensory deficits noted Sensorium / Orientation: alert Motor Exam: strength 5/5 throughout Psych mental status grossly normal MDM MDM MDM Narrative Medical decision making narrative: Differential diagnosis includes DVT, PE, cardiac dysrhythmia, dehydration, electrolyte abnormality, and anemia. EKG will be obtained to assess for cardiac dysrhythmia and cardiac ischemia. CTA of the chest will be obtained to assess for pulmonary embolism and pneumonia. Venous duplex of the left lower extremity will be obtained to assess for DVT. CBC will be obtained to assess for leukocytosis and anemia. Basic metabolic profile will be obtained to assess for electrolyte abnormality and renal function. Lab Data Lab results narrative: CBC was reviewed and was within normal limits. Basic metabolic profile was reviewed and was within normal limits. Radiography Diagnostic Testing: Venous duplex of the left lower extremity was obtained. There is no evidence of DVT. CTA of the chest was obtained. There is no evidence of pulmonary embolism or aortic dissection. No acute process noted. This was interpreted by the radiologist and was also independently reviewed by myself. EKG Initial EKG: Attestation: I personally reviewed and interpreted this EKG as follows: Interpretation: Sinus Rhythm (81) and No Acute Injury Pattern Comments: EKG was obtained. On my independent interpretation, it showed a normal sinus rhythm with a rate of 81. IN interval, QRS interval, and QTc intervals were all normal. Marshall was normal. There are no acute ST or T wave changes. Prior EKG tracings: available for review Prior: Unchanged (03/10/2024) Treatment and Re-Evaluation Narrative: Patient was given IV fluids. Patient was advised of her findings. Patient was instructed to follow-up with her primary care physician in 5 to 7 days. Patient was instructed to return if worse in any way. Patient understood and was agreeable with the plan. All questions were answered. Discharge Plan Triage Chief Complaint: Lower Extremity Injury ED Provider: José Miguel Clark Dx/Rx/DC Orders Clinical Impression: Peripheral edema, Chest pain Instructions: ED Peripheral Edema, Unilateral Prescriptions: No Action norethindrone acetate 5 mg tablet 5 mg PO .COMPLEX Qty: 45 0RF Rx Instructions: 5 mg orally TID until bleeding stops for 24hrs then BID to finish RX; Primary Care Provider: Care Physician,No Primary Referrals: Care Physician,No Primary [Primary Care Provider, Medical] Chandrika Quick NP-C [Non-Staff, Family Practice] - 5-7 Days Print Language: Australian Disposition Disposition: Home, Self Care
--- NOTE | 2025-03-21 11:45 | EKG12_ITS ---
Test Reason : Blood Pressure : */* mmHG Vent. Rate : 81 BPM Atrial Rate : 81 BPM P-R Int : 168 ms QRS Dur : 90 ms QT Int : 400 ms P-R-T Axes : 63 84 29 degrees QTcB Int : 464 ms Normal sinus rhythm with sinus arrhythmia Normal ECG Confirmed by AGNIESZKA HILLIARD, TARAN ([id number]), content editor JENARO JONES ([id number]) on 03/22/2025 8:04:14 AM Referred By: Confirmed By: TARAN AARON MD
--- NOTE | 2025-03-21 11:45 | CT_ITS ---
PROCEDURE: CTA CHEST W/WO CONTRAST 03/21/2025 REASON FOR EXAM: DYSPNEA TECHNIQUE: Procedure Code: [id number] Modality: CT Procedure: CTA CHEST W/WO CONTRAST Multiplanar Sagittal and Coronal images were obtained. 3D post processing was performed CONTRAST: Isovue 370 VOLUME: 75 mL One or more dose reduction techniques were used (e.g., Automated exposure control, adjustment of the mA and/or kV according to patient size, use of iterative reconstruction technique). RADIATION DOSE SUMMARY: CTDlvol: 30 mGy DLP: 549 mGycm COMPARISON: March 10, 2024 # of known CTs in the past 12 months: 0 # of known Cardiac Nuclear Medicine Studies in the past 12 months: 0 FINDINGS: Thoracic Aorta: No aneurysm or dissection. Heart: Normal-size. No pericardial effusion. Coronary arteries are unremarkable Pulmonary Vessels: The timing and quality of the contrast bolus is diagnostic. There is no evidence of acute or chronic pulmonary embolus. Hardware: Normal Lymph nodes: None appear enlarged Lungs and Airways: Clear. Pleura: No pneumothorax or pleural effusion. Upper Abdomen: No acute abnormality Bones: Normal CT/CTA Chest W/WO Contrast IMPRESSION: No acute abnormality Reading Location: [id number]
[2025-03-21 12:13] LABS: Hematocrit 43.9 % (37-47); Hemoglobin 14.6 g/dL (12.0-15.0); Immature Granulocytes Count 0.010 X10^3/uL (0.0-0.0); Mean Corp Hgb Conc 33.3 g/dL (32-36); Mean Corpuscular Volume 87.5 fL (81-99); Mean Platelet Vol. 9.5 fl (6.2-12.0); NRBC Flagged by Analyzer 0 % (0-5); Platelet Count 255 K/mm3 (150-450); RBC Distribution Width CV 13.0 % (11.6-14.6); RBC Distribution Width SD 41.2 fl (35.1-43.9); Red Blood Count 5.02 M/mm3 (4.2-5.4); White Blood Count 5.6 K/mm3 (4.4-11.0)
[2025-03-21] MEDS: 0.9% Normal Saline (1000mL) 1,000 ML 1000 ML IV (12:29)
[2025-03-21 12:30] VITALS: BP 162/83; PULSE 86; RESP 14; O2SAT 99
[2025-03-21 12:31] LABS: Anion Gap 9 (5-15); BUN 9 mg/dL (4-19); BUN/Creat Ratio 12.5 RATIO (10-20); Calcium,Total 9.4 mg/dL (7.6-11.0); Carbon Dioxide 26.9 mmol/L (21.0-32.0); Chloride 103 mmol/L (98-108); Estimated Creatinine Clearance 203.85 ml/min (50-250); Glucose 87 mg/dL (70-99); Potassium 4.2 mmol/L (3.3-5.1)
[2025-03-21 14:00] VITALS: BP 146/88; PULSE 70; RESP 14; O2SAT 99
--- NOTE | 2025-03-21 14:24 | CM.ED ---
Social work Reason for referral: no PCP Referral source: case find SW identified patient's lack of PCP and need for resources. SW entered patient's room, introducing self and role at [facility]. Patient accepted SW visit and stated having a "unique" living situation which causes issues with finding PCPs. Patient states spending half of the week at patient's mother's home in [place] and half of the week in [place] where patient's child's father lives. Patient stated preferring to find PCPs, podiatrists, and dentists in the [place] area. SW helped patient find resources based on insurance and SW also provided Zakiya Calixto information. Patient thanked SW for the help and denied further needs at this time. Caren Wallace, JR. SYSTEMS ADMINISTRATOR, WASHING AND SCREENING PLANT SUPERVISOR
[2025-03-21 15:10] VITALS: BP 133/67; PULSE 88; RESP 16; TEMP 36.2; O2SAT 99
== END 2025-03-21 15:10 | disposition home or self-care (01) ==
PROVIDERS: Emergency Provider Emergency Medicine; Visit Provider Emergency Medicine
DX: R07.9 Chest pain, unspecified (principal); R60.0 Localized edema; I10 Essential (primary) hypertension; R06.02 Shortness of breath; M79.605 Pain in left leg; M54.2 Cervicalgia; M79.89 Other specified soft tissue disorders; F17.210 Nicotine dependence, cigarettes, uncomplicated; F17.290 Nicotine dependence, other tobacco product, uncomplicated
CPT/HCPCS: 71275; 80048; 85025; 93005; 93971; 96360; 96361; 99284; Q9967; A4216

== ENCOUNTER 2025-06-04 17:52 | Emergency (ER) | payer OTHER, MEDICAID, SELFPAY ==
[2025-06-04 17:53] VITALS: BP 174/115; PULSE 103; RESP 18; TEMP 36.3; O2SAT 98; BMI 64.9
--- NOTE | 2025-06-04 18:07 | RAD_ITS ---
PROCEDURE: CHEST PA AND LATERAL 06/04/2025 REASON FOR EXAM: FALL TECHNIQUE: Procedure Code: RADCXR Modality: DX Procedure: CHEST PA AND LATERAL COMPARISON: March 21, 2025 FINDINGS: Hardware: None Heart: Heart size is mildly enlarged. Mediastinum: The mediastinal contour is unremarkable. Lungs: The lungs are clear. Bones: The bones are unremarkable. RAD/Chest PA and Lateral IMPRESSION: Mild cardiac enlargement. Reading Location: [id number]
--- NOTE | 2025-06-04 18:07 | CT_ITS ---
PROCEDURE: BRAIN/HEAD WITHOUT CONTRAST 06/04/2025 REASON FOR EXAM: HEAD INJURY TECHNIQUE: Procedure Code: CTBR Modality: CT Procedure: BRAIN/HEAD WITHOUT CONTRAST Coronal and Sagittal reconstruction series were provided. One or more dose reduction techniques were used (e.g., Automated exposure control, adjustment of the mA and/or kV according to patient size, use of iterative reconstruction technique. RADIATION DOSE SUMMARY: CTDlvol: 45 mGy DLP: 846 mGycm COMPARISON: None FINDINGS: Brain: There is no evidence of hemorrhage, acute ischemia or mass. No extra- axial fluid collection, midline shift or mass effect. CSF Spaces: Normal Sinuses/Mastoids: Clear Bones: No fracture CT/Brain/Head without Contrast IMPRESSION: No acute abnormality Reading Location: [id number]
--- NOTE | 2025-06-04 18:09 | EX.ED.GENINJ ---
HPI History of Present Illness Chief Complaint: Head Injury Informant: patient Onset/Context/Timing Onset: Today Mechanism/Context: Blunt Injury and Fall Current Severity: Moderate Maximum Severity: Moderate Associated Symptoms Associated Symptoms: Negative for Parasthesias, Weakness, Loss of function, Inability to ambulate, Loss of consciousness or Amnesia Narrative Narrative: 29-year-old female history of hypertension. She was leaving her job getting picked up by her mom. She walked out of the house she was working out which is like a fdc she sat on the walk due to the ice and wetness she slipped fell backwards striking her head. Said she was dazed but did not lose conscious she is not on blood thinners. Denies any neck pain. Also states she hit her upper back. Prior to the fall she was feeling fine. Prior similar symptoms: No Recent Illness/Hospitalization: No PFSH PFSH Medical History Hypertension Ovarian cyst Preeclampsia Home Medications ?Medication ?Instructions ?Recorded ?Last Taken ?Type hydroxyzine HCl 10 mg tablet 10 mg PO BID PRN PRN anxiety 03/21/25 Unknown History Allergy/AdvReac Type Severity Reaction Status Date / Time latex AdvReac Rash Verified 06/04/25 17:53 Family History Aunt Breast cancer, Onset Age: 34 Grandfather Throat cancer Surgical History History of tonsillectomy Social History adopted: No number of children: 1 current occupational status: employed sexually active: Yes Smoking Status: Current every day smoker tobacco type: cigarettes and e-cigarettes alcohol intake: never substance use type: does not use and marijuana caffeine: Yes Type: carbonated beverages danna/congregational: AGNOSTIC seatbelt use: always do you feel safe at home: Yes ROS ROS ED ROS Narrative Denies recent illness. Constitutional Constitutional ED: Denies chills or fever(s) Eyes Eyes: Denies blurry vision ENT ENT ED: Denies ear pain Cardiovascular Cardiovascular: Denies chest pain Respiratory/Chest Respiratory/Chest: Denies cough Gastrointestinal Gastrointestinal: Denies abdominal pain Genitourinary Genitourinary ED: Denies dysuria or hematuria Musculoskeletal Musculoskeletal: Denies arthralgias Integumentary Denies abscess Neurologic Neurologic: Denies paresthesias or weakness Psychiatric Psychiatric: Denies anxiety Endocrine Endocrinology: Denies cold intolerance Hematologic/Lymphatic Hematologic/Lymphatic: Denies easy bleeding Allergic/Immunologic Allergic/Immunologic ED: Denies mouth swelling, tongue swelling or urticaria EXAM Physical Exam Narrative Exam Narrative: 21-year-old female sitting upright in bed vital signs are stable patient blood pressure elevated 174 and 115 she has a history of hypertension. H EENT exam pupils round react light. Moist mucous membranes. She has a contusion to posterior scalp no significant hematoma noted no laceration nor blood. Mild tenderness posterior scalp. C-spine and neck nontender. Back nontender. Spine nontender. Lungs clear to auscultation bilaterally. Heart regular rhythm no murmur rate about 100. Chest wall and ribs nontender. Abdomen soft, nontender, nondistended normal bowel sounds without peritoneal signs. Pelvic girdle intact. Moving all 4 extremities. Normal range of motion. Nontender no deformity. 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 Dorsi plantarflexion intact. Neurologically she is awake alert. Answer questions following commands. GCS 15. Const Vital Signs: 06/04/25 17:53 06/04/25 18:03 Temperature 97.4 F L Temperature Source Temporal Pulse Rate 103 H Respiratory Rate 18 Respiratory Effort Normal Non-Labored Respiratory Depth Normal Respiratory Pattern Normal Blood Pressure 174/115 H Blood Pressure Mean 134 Pulse Ox 98 Oxygen Delivery Method Room Air Room Air MDM MDM MDM Narrative Medical decision making narrative: 29-year-old female slipped and fell leaving work injured her head. CT of her brain to be obtained. Clinically I think it is a close head injury. She has chronic hypertension. A chest x-ray will also be obtained to he is complaining of upper back pain from the fall but not over her spine over her posterior ribs. Tylenol for her head pain. Repeat exam patient is doing well. Chest x-ray was unremarkable. As was the CAT scan of her head. She be discharged home with a head injury. And back contusion. Ice to both. Motrin for pain and inflammation Tylenol for pain. Follow-up as needed. Head injury instructions. History & Record Review Discussion w/independent historian: Patient Additional record(s) reviewed:: Prior outpatient record, Prior ED visit and Prior labs Radiography Chest X-Ray - ED: 2 View, Read by ED Physician, Lungs, Mediastinum, Bony Structures, No Acute Disease, Chronic Changes and Cardiomegaly (Borderline cardiomegaly.) Diagnostic Testing: Clinical Impression(s) from Imaging Studies Brain CT 06/04/25 18:07 IMPRESSION: No acute abnormality Reading Location: [facility] Chest X-Ray 06/04/25 18:07 IMPRESSION: Mild cardiac enlargement. Reading Location: [facility] Chest x-ray, 2 views, AP and lateral, interpreted by myself and the radiologist shows no acute abnormality. Borderline cardiomegaly. Normal lung campos. No obvious bony abnormalities. No obvious rib fractures. Discharge Plan Triage Chief Complaint: Head Injury ED Provider: Timbo Noyola Dx/Rx/DC Orders Clinical Impression: Fall, Encounter related to worker's compensation claim, Closed head injury, Back contusion Instructions: ED Back Contusion, ED Head Injury (Adult) Prescriptions: No Action hydroxyzine HCl 10 mg tablet 10 mg PO BID PRN PRN (Reason: anxiety) Primary Care Provider: Care Physician,No Primary Referrals: Corporate,Care [Group of Physicians, Medical] - As Needed Care Physician,No Primary [Primary Care Provider, Medical] Activity Restrictions/Additional Instructions: Ice all sore areas. Motrin for pain and inflammation Tylenol for pain. Follow-up with corporate care if not improving. Return if severe headache, intractable vomiting or not acting right. Print Language: Macedonian Disposition Disposition: Home, Self Care
--- OUTSIDE RECORDS SUMMARY | 2025-06-04 18:29 | XMS RPT_ITS | CCD ---
Author Organization [facility] Care Team Providers Care Beer Cooler Name Role Phone Jenni Marina PA-C Unavailable Unavailable SHAHNAZ PUCKETT Referring UnavailROBINSON Molina Attending Unavailable PHYSICIAN, NONE Primary Care Physician Unavailab le PHYSICIAN, NONE Primary Care Unavailable EUSEBIA MORENO DO Admitting Unavailable BEULAH HILLIARD, SHASHANK [...] Primary Care Unavailable Unavailable Primary Care Provider Unavailabl e Care Physician, No Primary Primary Care Provider Unavailable Dr. Gomez Philippe DO Emergency Provider [phone] RBIT PAUL Attending Unavailable Care Physician, No Primary Primary Care Physicia n Unavailable Dr. Gomez Philippe DO Attending Physician Dr. Gomez Philippe DO Emergency Department Physician Dr. José Miguel Clark DO Emergency Department Physi elizabeth Care Physician, No Primary Primary Care Unava ilable José Miguel Clakr Attending Unavailable Care Physician, No Primary Primary Care Unava ilGomez Mcgee Attending Unavailable Care Physician, No Primary Primary Care Unava ilGomez Mcgee Referring Unavailable Gomez Philippe Attending Unavailable Alesha Aguilar Referring Unavailable Jeff Alesha Attending Unavailable Care Physician, No Primary Primary Care Unava ilable Alesha Aguilar Referring Unavailable Jeff, Alesha Attending Unavailable Care Physician, No Primary Primary Care Unava ilable Alesha Aguilar Attending Unavailable Care Physician, No Primary Referring Unava ilable Care Physician, No Primary Primary Care Unava ilable Care Physician, No Primary Referring Unava ilable Care Physician, No Primary Primary Care Unava ilable Kiet CHAIN HOOKER, Sara Attending Unavailable MORGANRIN NOONAN Attending Unavailable JOSEY RUSH Attending Unavailable RAMAN, JOSEY Referring Unavailable GWEN ZHANG Attending Unavailable GWEN ZHANG Referring Unavailable RAMAN, JOSEY Referring Unavailable AMEE DE LA PAZ Attending Unavailable GWEN ZHANG Attending Unavailable MOLLY FARRIS Attending Unavailable RIN MORGAN Attending Unavailable MORGANRIN Referring Unavailable ASIASHAHNAZ YATES Attending Unavailable ASIA, SHAHNAZ Referring Unavailable SHAHNAZ MARIN Attending Unavailable ALBER WOLFF Attending Unavailable BRTI PAUL Referring Unavailable ALBER WOLFF Referring Unavailable GWEN ZHANG Attending Unavailable MOLLY FARRIS Attending Unavailable JULIA BASURTO Attending Unavailable AMEE DE LA PAZ Attending Unavailable Allergies Allergy Classification Reported Allergen(s) Allergy Type Date of Onset Reaction(s) Facility (1 source) NUTRITIONAL SUPPLEMENTS; Translations: [NUTRITIONAL SUPPLEMENTS] Propensity to adverse reactions to drug (disorder) 4 [facility] Repository (1 source) [id number] ARCH; Translations: [EFORO-RQPFVLI-T TARCH] Propensity to adverse reactions to drug (disorder) 4 [facility] Repository (2 sources) Bee/Wasp/Ant venom Allergy to substance [facility] (20 sources) Latex; Translations: [LATEX] Drug allergy [address] [facility] Medications Current Medications Medication Drug [...] Daily, # 1 EA, 0 Refill(s), [id number], 172.7, cm, 04/02/22 9:47:00 EDT, Height, 129.5 Start Date: 04/07/22 Status: Ordered ciprofloxacin 3 mg/ml ophthalmic solution (1 source) Quinolone Antimicrobial Start: 02-17-2025 End: 02-24-2025 take 1-2 drop(s) into the eye(s) every two hours, then take 1-2 drop(s) into the eye(s) every four hours ciprofloxacin HCl (CILOXAN) 0.3 % ophthalmic solution Use 1-2 drops inside left lower eyelid(s) every 2 hours while awake for 2 days, then 1-2 drops every 4 hours for next 5 days. 10 mL 02/17/2025 02/24/2025 Active docusate sodium 100 mg oral tablet (1 source) Start: 04-05-2022 docusate sodium 100 mg oral tablet Dose : 100 mg = 1 tab(s), Oral, BID, # 60 tab(s), 0 Refill(s), [id number], 172.7, cm, 04/02/22 9:47:00 EDT, Height Start [...] Start Date: 03/11/22 Status: Ordered hydrOXYzine hydrochloride 10 mg oral tablet (14 sources) Antihistamine Start: 03-21-2025 take 1 tablet by mouth twice daily as needed for anxiety Hydroxyzine Hcl 10 mg tablet Active 10 mg PO TWICE DAILY NEEDED as needed for anxiety March 21, 2025 12:00am Complies with drug therapy Start: 08-24-2024 take 1 tablet by jeferson th every six hours as needed hydrOXYzine HCl (ATARAX) 25 mg tablet Take 25 mg by mouth four times a day as needed. 08/24/2024 Active labetalol hydrochloride 200 mg oral tablet (1 source) beta-Adrenergic Eric Start: 04-07-2022 labeta lol 200 mg oral tablet Dose : 400 mg = 2 tab(s), Oral, BID, # 120 tab(s), 1 Refill(s), Pharmacy: [facility] #[id number], 172.7, cm, 04/02/22 9:47:00 EDT, Height Start Date: 04/07/22 Status: Ordered levonorgestrel 0.548273 mg/hr intrauterine system (7 sources) Progestin, Progestin-containing Intrauterine Device Start: 11-02-2024 End: 10-31-2032 levonorgestrel (MIRENA) 21 mcg/24hr (up to 8 yrs) 52 mg IUD 1 each by INTRAUTERINE route as directed. 1 each 11/02/2024 10/31/2032 Active Start: 11-02-2024 End: 11-02-2024 1 each, INTRAUTERINE, ONCE ( UP TO 30 DAYS AMB), 1 dose, On Fri11/02/24 at 1200, Hazardous Potential Reproductive Risk Drug: Use appropriate PPE. LORazepam 0.5 mg oral tablet (5 sources) Benzodiazepine Start: 09-23-2024 LORazepam (ATIVAN) 0.5 [...] qDay, # 30 tab(s), 1 Refill(s), Pharmacy: [facility] #[id number], 172.7, cm, 04/02/22 9:47:00 EDT, Height Start Date: 04/07/22 Status: Ordered 19 (Davidson) oral tablet, chewable (1 source) Start: 03-28-2022 take 1 tablet by mouth once daily 19 (Davidson) oral tablet, chewable Dose = 1 tab(s), Chewed, qDay, 0 Refill(s) Start Date: 03/28/22 Status: Ordered rizatriptan 10 mg oral tablet (3 sources) Serotonin-1b and Serotonin-1d Receptor Agonist Start: 12-08-2024 [...] 12/08/2024 Active topiramate 50 mg oral tablet (3 sources) Start: 12-08-2024 End: 06-20-2025 take 1 tablet [...] milk., # 60 tab(s), 0 Refill(s), [facility]: [id number], 172.7, cm, 04/02/22 9:47:00 EDT, Height Start [...] Effects) norethindrone acetate 5 mg oral tablet (8 sources) Start: 10-08-2024 End: 12-08-2024 take 1 [...] days. 30 tablet 10/22/2024 12/08/2024 Discontinued Start: 03-03-2024 End: 03-21-2025 Norethindrone Acetate 5 mg t ablet Discontinued 5 mg PO .COMPLEX 45 0 March 03, 2024 12:00am March 21, 2025 12:43pm 5 mg orally TID until bleeding stops for 24hrs then BID to finish RX; Start: 04-05-2022 norethindrone 0.35 mg oral tablet Dose : 0.35 mg = 1 tab(s), Oral, qDay, # 28 tab(s), 3 Refill(s), Pharmacy: [facility] #[id number], 172.7, cm, 04/02/22 9:47:00 EDT, Height Start Date: 04/05/22 Status: Ordered ondansetron 4 mg oral tablet (1 source) Serotonin-3 Receptor Antagonist Start: 03-19-2022 End: 03-24-2022 Zofran 4 mg oral tablet Dose : 4 mg = 1 tab(s), Oral, q4h, # 30 tab(s), 0 Refill(s), Pharmacy: [facility] #[id number], 172.7, cm, 03/19/22 12:22:00 EDT, Height Start Date: 03/19/22 Stop Date: 03/24/22 Status: Ordered Problems Active Problems Problem Classification Problem Date Documented Date Episodic/Chronic Abdominal pain (2 sources) Left flank pain; Translations: [Unspecified abdominal pain] 03-18-2024 Episodic Anxiety disorders (2 sources) Generalized anxiety disorder; Translations: [Panic disorder [episodic paroxysmal anxiety]] Onset: 04-20-2025 Chronic Asthma (19 sources) Asthma; Translations: [Uncomplicated asthma] Onset: 05-14-2024 03-14-2017 Chronic Attention-deficit, conduct, and disruptive behavior disorders (2 sources) Attention deficit hyperactivity disorder, predominantly inattentive type 05-01-2013 Chronic Attention-deficit, conduct, and disruptive behavior disorders (17 sources) Attention deficit hyperactivity disorder; Translations: [Attention-deficit hyperactivity disorder, unspecified type] Onset: 05-14-2024 05-14-2024 Chronic Benign neoplasm of uterus (2 sources) Uterine leiomyoma; Translations: [Leiomyoma of uterus, unspecified] 03-06-2024 Episodic Disorders usually diagnosed in infancy, childhood, or adolescence (1 source) Autistic disorder; Translations: [Autism spectrum disorder (HCC)] Onset: 04-20-2025 Chronic Headache; including migraine (5 sources) Refractory migraine without aura; Translations: [Migraine without aura, intractable, without status migrainosus] Onset: 09-09-2024 12-08-2024 Chronic Immunizations and screening for infectious disease (6 sources) Encounter for immunization; Translations: [Encounter for prophylactic Rho(D) immune globulin] Onset: 03-04-2022 Episodic Menstrual disorders (1 source) Irregular menstruation, unspecified; Translations: [Irregular menstrual bleeding] Onset: 10-08-2024 Chronic Miscellaneous mental health disorders (2 sources) Psychosomatic factor in physical condition; Translations: [Psychological and behavioral factors associated with disorders or diseases classified elsewhere] Onset: 04-20-2025 05-07-2024 Chronic Mood disorders (17 sources) Episodic mood disorder; Translations: [Unspecified mood [affective] disorder] Onset: 06-06-2014 05-14-2024 Chronic Nonspecific chest pain (4 sources) Other chest pain; Translations: [Chest pain] Onset: 09-11-2024 03-21-2025 Episodic Other circulatory disease (2 sources) Elevated blood-pressure reading, without diagnosis of hypertension; Translations: [Elevated blood pressure reading without diagnosis of hypertension] Onset: 09-09-2024 Episodic Other eye disorders (1 source) Ocular pain, left eye; Translations: [Left eye pain] Onset: 02-17-2025 Episodic Other eye disorders (1 source) Unspecified epiphora, left side; Translations: [Watering of left eye] Onset: 02-17-2025 Episodic Other female genital disorders (4 sources) Abnormal uterine bleeding; Translations: [Abnormal uterine and vaginal bleeding, unspecified] 07-09-2024 Chronic Other female genital disorders (1 source) Other specified abnormal uterine and vaginal bleeding; Translations: [Other specified abnormal uterine and vaginal bleeding] Onset: 05-17-2024 Chronic Other female genital disorders (1 source) Abnormal uterine and vaginal bleeding, unspecified; Translations: [Abnormal uterine bleeding (AUB)] Onset: 07-15-2024 Chronic Other female genital disorders (1 source) Personal history of other diseases of the female genital tract; Translations: [History of ovarian cyst] Onset: 10-08-2024 Episodic Other nutritional; endocrine; and metabolic disorders [...] comorbidity present (HCC)] Onset: 09-15-2024 Chronic Other skin disorders (1 source) Localized swelling, mass and lump, left lower limb; Translations: [Localized swelling, mass and lump, left lower limb] Onset: 01-25-2025 Episodic Polyhydramnios and other problems of amniotic cavity (1 source) Oligohydramnios 03-19-2022 Episodic Residual codes; unclassified (5 sources) Obstructive sleep apnea syndrome; Translations: [Obstructive sleep apnea (adult) (pediatric)] 09-21-2024 Chronic Residual codes; unclassified (1 source) Obstructive sleep apnea (adult) (pediatric); Translations: [DARWIN (obstructive sleep apnea)] Onset: 12-08-2024 Chronic Residual codes; unclassified (3 sources) Peripheral edema; Translations: [Localized edema] 01-22-2025 Episodic Residual codes; unclassified (1 source) Localized edema; Translations: [Localized edema] Onset: 01-29-2025 Episodic Screening and history of mental health and substance abuse codes (2 sources) H/O: anxiety state; Translations: [Personal history of other mental and behavioral disorders] 01-22-2025 Episodic Substance-related disorders (1 source) Nicotine dependence, cigarettes, uncomplicated; Translations: [Nicotine dependence, cigarettes, uncomplicated] Onset: 04-20-2025 Chronic Superficial injury; contusion (1 source) Injury of conjunctiva and corneal abrasion without foreign body, left eye, initial encounter; Translations: [Abrasion of left cornea, initial encounter] Onset: 02-17-2025 Episodic Syncope (2 sources) Near syncope; Translations: [Syncope and collapse] 03-18-2024 Episodic Unclassified (1 source) Unknown / UNK(Unknown) Onset: 04-24-2017 Unclassified (1 source) Streptococcus agalactiae (organism) 04-02-2022 Unclassified (1 source) NO SHOW 04-30-2024 Unclassified (1 source) Dental Problem Onset: 12-27-2023 Unclassified (2 sources) Bariatric Surgery Authorization Operational Review Sergeant Onset: 01-07-2025 01-07-2025 Unclassified (1 source) Moderate binge-eating disorder; Translations: [Moderate binge-eating disorder] Onset: 04-20-2025 Unclassified (1 source) BMI Psychology Consult Onset: 04-05-2025 Unclassified (1 source) Class 3 severe obesity [...] Problem Date Documented Date Episodic/Chronic Administrative/social admission (17 sources) Fostered; Translations: [Child in welfare custody] Onset: 08-25-2013 05-14-2024 Episodic Contraceptive and procreative management (4 sources) Patient encounter status; Translations: [Encounter for insertion of intrauterine contraceptive device] Onset: 11-02-2024 10-21-2024 Episodic Diabetes or abnormal glucose tolerance complicating ; childbirth; or the puerperium (2 sources) Abnormal glucose complicating ; Translations: [Abnormal glucose complicating ] Onset: 03-14-2022 Episodic Other connective tissue disease (1 source) Pain in right leg; Translations: [Pain of right lower extremity] Onset: 11-16-2024 Episodic Other female genital disorders (16 sources) Cyst of uterine adnexa; Translations: [Other noninflammatory disorders of ovary, fallopian tube and broad ligament] Onset: 07-15-2024 07-15-2024 Episodic Other injuries and conditions due to external causes (1 source) Other injury of unspecified body region, initial encounter; Translations: [Muscle strain] Onset: 11-16-2024 Episodic Other and delivery including normal (5 sources) ; Translations: [Encounter for supervision of normal , unspecified, unspecified trimester] Onset: 09-08-2021 03-11-2022 Episodic Comment on above: System added from do cumentation. Status documented as Yes on Admission Ovarian cyst (20 sources) Cyst of right ovary; Translations: [Unspecified ovarian cyst, right side] Onset: 05-13-2024 07-09-2024 Episodic Unclassified (1 source) COUGH AND CONGESTION/TRIAGE Onset: 04-24-2017 Unclassified (1 source) Patient encounter status 11-02-2024 Results Test Name Value Interpretation Reference Range Facility PAP TITRATION PSG (CPAP, BIP AP, ASV)on 03-24-2025 PAP TITRATION PSG (CPAP, BIPAP, ASV) [facility] ??? [address] [place] [id number] ; PAP Titration Study Report Name: LALITHA GARCIA Date of Study: 03/24/2025 [facility]#: [id number] Age: 29 (: 1995) ESS: 02/13 Neck Circ. (cm): 44.0 Height (cm): 172.7 Weight (kg): 180.7 BMI: 60.6 Referring Provider: ALBER WOLFF Mailcode: [id number] Sleep history: The patient is a 29 year old female with obstructive sleep apnea. A home sleep apnea test on 09/15/2024 showed an overall apnea-hypopnea index (AHI)/respiratory event index (YOSEPH) of 71.7, Supine AHI/YOSEPH of 76.5, central apnea index (ARELIS) of 0.0, and an oxygen saturation caterina of 50%. The patient is not using CPAP at home. The patient endorses being a habitual side and prone sleeper. Past medical history: Obstructive sleep apnea, Allergies, Chronic obstructive pulmonary disease, Class III obesity, Depression, Hypertension Pertinent medications: Atarax, Mirena, Ativan, Rizatriptan, Topiramate Sleep procedure: PSG w/CPAP or Bilevel PAP 4 or > tanner PC ([id number]) Procedure: The study was attended continuously by a ct mri technologist. The monitored parameters included: left (E1-M2) and right (E2-M1) EOG, frontal (F3-M2 and F4-M1), central (C3-M2 and C4-M1) and occipital (O1-M2 and O2-M1) EEG, mental and submental EMG, left and right anterior tibialis, left and right flexor digitorum superficialis EMG, single ECG waveform, snoring, continuous airflow via PAP interface, chest and abdominal effort, oxygen saturation, ETCO2, TcpCO2, and body position via video monitoring. Hypopnea definition: The peak signal excursions drop by >= 30% of pre-event baseline using nasal pressure (diagnostic study), PAP device flow (titration study) or an alternative hypopnea sensor (diagnostic study). The duration of the >= 30% drop in signal excursion is >= 10 seconds. There is a greater than or equal to 3% oxygen desaturation from pre-event baseline or the event is associated with an arousal. Respiratory Effort Related Arousal (RERA) definition: 10 seconds characterized by increasing respiratory effort or by flattening of the nasal pressure or PAP flow waveform leading to arousal from sleep when the sequence of breaths does not meet criteria for an apnea or hypopnea. Respiratory Disturbance Index (RDI) definition: RDI = (#apneas + #hypopneas + #RERAs) x 60 / TST. SLEEP ARCHITECTURE: The study started at 23:26:45 and ended at 09:35:16. Total sleep time (TST) was 549 minutes resulting in a sleep efficiency of 90.3% (total recording time (TRT) = 608 m). There were 16 awakenings with a total time awake after sleep onset of 38.0 minutes. The sleep latency was 21.0 minutes and the REM latency was 172 minutes. The patient spent 50.4% of sleep time in the supine position. The sleep stage percentages were 0.5% stage N1, 63.3% stage N2, 0.0% stage N3 and 36.1% REM sleep. There were 208 arousals, resulting in an arousal index of 22.7. There were 45 stage shifts. POSITIVE AIRWAY PRESSURE DATA: CPAP was initiated at 5 cmH2O. Snoring was eliminated at a CPAP setting of 20 cmH2O. There were 255 respiratory events consisting of 5 apneas [2 obstructive (40%), 0 mixed (0%), and 3 central (60%)], and 250 hypopneas. The mean oxygen saturation during the study was 95%, with a minimum oxygen saturation of 75%. The patient spent 3.7% (20.6 min) of sleep time with an oxygen saturation below 90% and 2.2% (12.1 min) of sleep time with an oxygen saturation at or below 88%. Karson-Pastor/Periodic Breathing was not present. Supplemental oxygen was not administered. A medium ResMed AirFit F20 full face mask without chin strap was used. The mask leak at the most effective pressure was within normal limits. PAP SUMMARY: PAP BUR O2 TST %Sup SupAHI REM RAHI ARELIS AHI ArIdx Caterina AvgSaO2 05 0 0.0 10.0m 100% 66.0 0.0m -- 0.0 66.0 60.0 82% 93% 07 0 0.0 26.5m 100% 117.7 0.0m -- 0.0 117.7 101.9 83% 91% 09 0 0.0 64.5m 100% 84.7 0.0m -- 0.0 84.7 61.4 75% 92% 11 0 0.0 93.5m 100% 48.8 26.5m 9.1 0.0 48.8 37.2 85% 94% 13 0 0.0 40.5m 100% 13.3 40.5m 13.3 3.0 13.3 4.4 91% 96% 15 0 0.0 42.5m 74% 9.5 3.0m 40.0 1.4 7.1 4.2 89% 96% 17 0 0.0 98.0m 11% 5.7 31.0m 3.9 0.0 1.8 4.3 89% 97% 18 0 0.0 27.0m 0% -- 14.0m 12.9 0.0 6.7 0.0 93% 97% 19 0 0.0 62.0m 0% -- 46.0m 6.5 0.0 4.8 1.9 93% 97% 20 0 0.0 85.0m 0% -- 37.5m 0.0 0.0 0.0 4.2 93% 97% Transcutaneous CO2 by Pressure: PAP AvgTCO2 TCO2 max %of sleep time w/CO2 >50 %of sleep time w/TCO2 >55 05 49 51 30.9 0.0 07 54 56 99.7 7.2 09 58 62 100.0 98.8 11 55 60 77.3 69.2 13 45 46 0.0 0.0 15 44 46 0.0 0.0 17 16 49 0.0 0.0 18 49 50 0.0 0.0 19 49 51 1.8 0.0 20 49 50 0.0 0.0 MOVEMENT DATA: No abnormal behavior or motor activities were noted. There were no periodic limb movements during sleep, resulting in a PLM-index of 0.0. ECG DATA: The average heart rate during sleep was 84 beats per min (more content not included)... Normal [facility] 12 Lead EKGon 03-21-2025 12 Lead EKG [facility] [address] [place] [address] 12 Lead EKG 03/21/25 1244 MR#: [id number] Acct: [id number] Name: LALITHA GARCIA Rep #: [id number] : 1995 29 From: Leonard Millan MD Attending Dr: Status: DEP ER Ordering Dr: José Miguel Clark DO Date: 03/21/25 Location: ED Sex: F AA Admitted: Test Reason : Blood Pressure : */* mmHG Vent. Rate : 81 BPM Atrial Rate : 81 BPM P-R Int : 168 ms QRS Dur : 90 ms QT Int : 400 ms P-R-T Axes : 63 84 29 degrees QTcB Int : 464 ms Normal sinus rhythm with sinus arrhythmia Normal ECG Confirmed by AGNIESZKA HILLIARD, LEONARD ([id number]), news editor JENARO JONES ([id number]) on 03/22/2025 8:04:14 AM Referred By: Confirmed By: LEONARD MILLAN MD 03/22/25803 Date Leonard Millan MD CC: Dr. José Miguel Clark, DO; No Primary Care Physician Signed Normal [facility] Absolute lymphocyte countOrd ered By: José Miguel Clark on 03-21-2025 Lymphocytes Auto (Unsp spec) [#/Vol] 2.66 10*3/uL 0.83-4.51 [facility] Absolute neutrophil countOrd ered By: José Miguel Clark on 03-21-2025 Neutrophils (Bld) [#/Vol] 2.2 10*3/uL 2.0-7.7 [facility] Anion gap in Serum or Plasma Ordered By: José Miguel Clark on 03-21-2025 Anion gap [Moles/Vol] 9 mmol/L 5-15 [facility] Automated lymphocyte count a s percentage of total leukocytesOrdered By: José Miguel Clark on 03-21-2025 Lymphocytes/100 WBC Auto (Unsp spec) 47.6 % High 19-41 [facility] BUN/creatinine ratioOrdered By: José Miguel Clark on 03-21-2025 Urea nitrogen/Creatinine [Mass ratio] 12.5 mg/mg 10- [facility] Basic Metabolic Profile (BMP )on 03-21-2025 BUN/CRE 12.5 RATIO Normal - [facility] Comment on above: Performed By: #### L 100.0100, L500.2500 ####[facility] [address] [place], [address] Calcium [Mass/Vol] 9.4 mg/dL Normal 7.6-11.0 [facility] Comment on above: Performed By: #### L 100.0100, L500.2500 ####[facility] [address] [place], [address] Chloride [Moles/Vol] 103 mmol/L Normal 98-108 [facility] Comment on above: Performed By: #### L 100.0100, L500.2500 ####[facility] [address] [place], [address] CO2 [Moles/Vol] 26.9 mmol/L Normal 21.0-32.0 [facility] Comment on above: Performed By: #### L 100.0100, L500.2500 ####[facility] [address] [place], [address] Creatinine [Mass/Vol] 0.75 mg/dL Normal 0.70-1.20 [facility] Comment on above: Performed By: #### L 100.0100, L500.2500 ####[facility] [address] [place], [address] ECRCL 203.85 ml/min Normal 50-250 [facility] Comment on above: Performed By: #### L 100.0100, L500.2500 ####[facility] [address] [place], [address] GAP 9 Normal 5-15 [facility] Comment on above: Performed By: #### L 100.0100, L500.2500 ####[facility] [address] [place], [address] GFR/1.73 sq M.predicted among non-blacks MDRD (S/P/Bld) [Vol rate/Area] 112 mL/min/{1.73_m2} Normal >60 [facility] Comment on above: Result Comment: mL/m in/1.73m2 CKD-EPI Creatinine Equation (2020) Performed By: #### L 100.0100, L500.2500 ####[facility] [address] [place], [address] Glucose [Mass/Vol] 87 mg/dL Normal 70-99 [facility] Comment on above: Performed By: #### L 100.0100, L500.2500 ####[facility] [address] [place], [address] Potassium [Moles/Vol] 4.2 mmol/L Normal 3.3-5.1 [facility] Comment on above: Performed By: #### L 100.0100, L500.2500 ####[facility] [address] [place], [address] Sodium [Moles/Vol] 139 mmol/L Normal 133-145 [facility] Comment on above: Performed By: #### L 100.0100, L500.2500 ####[facility] [address] [place], [address] Urea nitrogen [Mass/Vol] 9 mg/dL Normal 4-19 [facility] Comment on above: Performed By: #### L 100.0100, L500.2500 ####[facility] [address] [place], [address] Basophil percentageOrdered B y: José Miguel Clark on 03-21-2025 Basophils/100 WBC (Bld) 0.7 % 0-1 [facility] CBC W/Diff, Automatedon 02-22 Absolute Lymph 2.66 X10 3/uL Normal 0.83-4.51 [facility] Comment on above: Performed By: #### L 100.0100, L500.2500 ####[facility] [address] [place], [address] Absolute Neut 2.2 X10 3/uL Normal 2.0-7.7 [facility] Comment on above: Performed By: #### L 100.0100, L500.2500 ####[facility] [address] [place], [address] Basophils/100 WBC (Bld) 0.7 % Normal 0-1 [facility] Comment on above: Performed By: #### L 100.0100, L500.2500 ####[facility] [address] [place], [address] Eosinophils/100 WBC (Bld) 3.2 % Normal 0-5 [facility] Comment on above: Performed By: #### L 100.0100, L500.2500 ####[facility] [address] [place], [address] Erythrocyte distribution width (RBC) [Ratio] 13.0 % Normal 11.6-14.6 [facility] Comment on above: Performed By: #### L 100.0100, L500.2500 ####[facility] [address] [place], [address] Hematocrit (Bld) [Volume fraction] 43.9 % Normal 37-47 [facility] Comment on above: Performed By: #### L 100.0100, L500.2500 ####[facility] [address] [place], [address] Hemoglobin (Bld) [Mass/Vol] 14.6 g/dL Normal 12.0-15.0 [facility] Comment on above: Performed By: #### L 100.0100, L500.2500 ####[facility] [address] [place], [address] IG% 0.200 Normal 0.0-0.9 [facility] Comment on above: Result Comment: IG% - Immature Granulocytes (promyelocytes, myelocytes and metamyelocytes) > 1% indicates that a LEFT SHIFT is Present. Performed By: #### L 100.0100, L500.2500 ####[facility] [address] [place], [address] Lymphocytes/100 WBC (Bld) 47.6 % High 19-41 [facility] Comment on above: Performed By: #### L 100.0100, L500.2500 ####[facility] [address] [place], [address] MCH (RBC) [Entitic mass] 29.1 pg Normal 27.0-32.0 [facility] Comment on above: Performed By: #### L 100.0100, L500.2500 ####[facility] [address] [place], [address] MCHC (RBC) [Mass/Vol] 33.3 g/dL Normal 32-36 [facility] Comment on above: Performed By: #### L 100.0100, L500.2500 ####[facility] [address] [place], [address] MCV (RBC) [Entitic vol] 87.5 fL Normal 81-99 [facility] Comment on above: Performed By: #### L 100.0100, L500.2500 ####[facility] [address] [place], [address] Monocytes/100 WBC (Bld) 9.3 % Normal 0-10 [facility] Comment on above: Performed By: #### L 100.0100, L500.2500 ####[facility] [address] [place], [address] Neutrophils/100 WBC (Bld) 39.0 % Low 47-70 [facility] Comment on above: Performed By: #### L 100.0100, L500.2500 ####[facility] [address] [place], [address] Nucleated RBC (Bld) [#/Vol] 0 10*3/uL Normal 0-5 [facility] Comment on above: Performed By: #### L 100.0100, L500.2500 ####[facility] [address] [place], [address] Platelet mean volume (Bld) [Entitic vol] 9.5 fL Normal 6.2-12.0 [facility] Comment on above: Performed By: #### L 100.0100, L500.2500 ####[facility] [address] [place], [address] Platelets (Bld) [#/Vol] 255 10*3/uL Normal 150-450 [facility] Comment on above: Performed By: #### L 100.0100, L500.2500 ####[facility] [address] [place], [address] RBC (Bld) [#/Vol] 5.02 10*6/uL Normal 4.2-5.4 [facility] Comment on above: Performed By: #### L 100.0100, L500.2500 ####[facility] [address] [place], [address] RDW SD 41.2 fl Normal 35.1-43.9 [facility] Comment on above: Performed By: #### L 100.0100, L500.2500 ####[facility] [address] [place], [address] WBC (Bld) [#/Vol] 5.6 10*3/uL Normal 4.4-11.0 [facility] Comment on above: Performed By: #### L 100.0100, L500.2500 ####[facility] [address] [place], [address] CTA Chest W/WO Contraston CTA Chest W/WO Contrast [facility] [address] [place] [address] CTA Chest W/WO Contrast MR#: [id number] Acct: [id number] Name: LALITHA GARCIA Rep #: [id number] : 1995 F 29 From: Robin Koch MD PCP: Care Physician,No Primary Status: REG ER Study: CTA Chest W/WO Contrast Date of Exam: 03/21/25 Exam# [id number] Ordering Dr: José Miguel Clark DO PROCEDURE: CTA CHEST W/WO CONTRAST 03/21/2025 REASON FOR EXAM: DYSPNEA TECHNIQUE: Procedure Code: CTCTACHWW Modality: CT Procedure: CTA CHEST W/WO CONTRAST Multiplanar Sagittal and Coronal images were obtained. 3D post processing was performed CONTRAST: Isovue 370 VOLUME: 75 mL One or more dose reduction techniques were used (e.g., Automated exposure control, adjustment of the mA and/or kV according to patient size, use of iterative reconstruction technique). RADIATION DOSE SUMMARY: CTDlvol: 30 mGy DLP: 549 mGycm COMPARISON: March 10, 2024 # of known CTs in the past 12 months: 0 # of known Cardiac Nuclear Medicine Studies in the past 12 months: 0 FINDINGS: Thoracic Aorta: No aneurysm or dissection. Heart: Normal-size. No pericardial effusion. Coronary arteries are unremarkable Pulmonary Vessels: The timing and quality of the contrast bolus is diagnostic. There is no evidence of acute or chronic pulmonary embolus. Hardware: Normal Lymph nodes: None appear enlarged Lungs and Airways: Clear. Pleura: No pneumothorax or pleural effusion. Upper Abdomen: No acute abnormality Bones: Normal CT/CTA Chest W/WO Contrast IMPRESSION: No acute abnormality Reading Location: [facility] CC: Dr. José Miguel Clark DO; No Primary Care Physician Cable Installation Manager: Signed Normal [facility] Carbon dioxide, total [Moles /volume] in Central venous bloodOrdered By: José Miguel Clark on 03-21-2025 CO2 [Moles/Vol] 26.9 mmol/L 21.0-32.0 [facility] Chloride assayOrdered By: Kennedy Clark on 03-21-2025 Chloride [Moles/Vol] 103 mmol/L 98-108 [facility] Electrocardiogram reportOrde red By: Leonard Millan on 03-21-2025 EKG study [facility] [address] [place] [address] 12 Lead EKG 03/21/25 1244 MR#: [id number] Acct: [id number] Name: LALITHA GARCIA Rep #:[id number] : 1995 29 From: Leonard Millan MD Attending Dr: Status: DEP E R Ordering Dr: José Miguel Clark DO Date: 0 03/21/25 Location: ED Sex: F AA Admitted: Test Reason : Blood Pressure : */* mmHG Vent. Rate : 81 BPM Atrial Rate : 81 BPM P-R Int : 168 ms QRS Dur : 90 ms QT Int : 400 ms P-R-T Axes : 63 84 29 degrees QTcB Int : 464 ms Normal sinus rhythm with sinus arrhythmia Normal ECG Confirmed by LEONARD MILLAN MD ([id number]), news editor JENARO JONES ([id number]) on 58:04:14 AM Referred By: Confirmed By: LEONARD MILLAN MD 03/22/25 0804 Date _ Leonard Millan MD CC: Dr. José Miguel Clark DO; No Primary Care Physician ~ Signed [facility] Other Phone: Emergency Department Summary on 03-21-2025 Emergency Department Summary [facility] Medical Records Department [address] [place] [address] Emergency Department Summary 03/21/25 MR#: [id number] Acct: [id number] Name: LALITHA GARCIA Rep #: [id number] : 1995 29 From: José Miguel Clark DO PCP: Care Physician,No Primary Status:DEP ER Location: ED HPI History of Present Illness HPI Narrative: Patient presents with left leg pain and swelling that became worse today. Patient states she was seen here for this recently and was told to keep her leg elevated. Patient states today when she was getting ready to leave work, she started having some shortness of breath and pressure in her chest. Patient states it is worse with walking. Patient states she feels dizzy with this. Patient denies any nausea or vomiting. Patient denies any fevers or chills. Patient denies any cough. Chief Complaint: Lower Extremity Injury Informant: patient Onset/Context/Timing Onset: Today Context: Gradual Onset Timing: Continuous Quality of Pain: Aching Location: Left lower leg Worsened by: Walking Relieved by: Nothing Associated Symptoms Associated Symptoms: Negative for Parasthesia, Weakness or Loss of Funtion PFSH PFSH Medical History Hypertension Ovarian cyst Preeclampsia Home Medications ???Medication ???Instructions ???Recorded ???Last Taken ???Type hydroxyzine HCl 10 mg tablet 10 mg PO BID PRN PRN anxiety 03/21 Unknown History Allergy/AdvReac Type Severity Reaction Status Date / Time latex AdvReac Rash Verified 03/21/25 11:05 Family History Aunt Breast cancer, Onset Age: 34 Grandfather Throat cancer Surgical History History of tonsillectomy Social History adopted: No number of children: 1 current occupational status: employed sexually active: Yes Smoking Status: Current every day smoker tobacco type: cigarettes and e-cigarettes alcohol intake: never substance use type: does not use and marijuana caffeine: Yes Type: carbonated beverages danna/episcopalian: AGNOSTIC seatbelt use: always do you feel safe at home: Yes ROS ROS ED Constitutional Constitutional ED: Denies chills or fever(s) Eyes Eyes: Denies blurry vision or change in vision ENT ENT ED: Denies rhinorrhea or sore throat Cardiovascular Cardiovascular: Reports chest pain; Denies palpitations Respiratory/Chest Respiratory/Chest: Reports dyspnea; Denies cough Gastrointestinal Gastrointestinal: Denies nausea or vomiting Genitourinary Genitourinary ED: Denies dysuria or hematuria Musculoskeletal Musculoskeletal: Reports back pain and neck pain Integumentary Denies abscess or rash Neurologic Neurologic: Denies headache(s) or weakness Allergic/Immunologic Allergic/Immunologic ED: Denies mouth swelling or urticaria EXAM Physical Exam Const Vital Signs: 03/21/25 11:05 Temperature 97.9 F Temperature Source Oral Pulse Rate 93 Respiratory Rate 18 Blood Pressure 158/104 H Blood Pressure Mean 122 Pulse Ox 99 Oxygen Delivery Method Room Air Positive well nourished and well developed General Appearance ED: well developed and NAD HEENT Reports moist mucous membranes Neck full ROM Resp normal respiratory effort and clear to auscultation bilaterally Cardio regular rate and regular rhythm GI non-tender and non-distended Palpation: soft Extremity full ROM Extremity Narrative: There is mild edema and tenderness over the left calf. There is no deformity noted. There is good pulse palpated. Neuro oriented x3, CN's II-XII intact bilaterally, moves all extremities and no sensory deficits noted Sensorium / Orientation: alert Motor Exam: strength 5/5 throughout Psych mental status grossly normal MDM MDM MDM Narrative Medical decision making narrative: Differential diagnosis includes DVT, PE, cardiac dysrhythmia, dehydration, electrolyte abnormality, and anemia. EKG will be obtained to assess for cardiac dysrhythmia and cardiac ischemia. CTA of the chest will be obtained to assess for pulmonary embolism and pneumonia. Venous duplex of the left lower extremity will be obtained to assess for DVT. CBC will be obtained to assess for leukocytosis and anemia. Basic metabolic profile will be obtained to assess for electrolyte abnormality and renal function. Lab Data Lab results narrative: CBC was reviewed and was within normal limits. Basic metabolic profile was reviewed and was within normal limits. Radiography Diagnostic Testing: Venous duplex of the left lower extremity was obtained. There is no evidence of DVT. CTA of the chest was obt (more content not included)... Normal [facility] Eosinophil percentageOrdered By: José Miguel Clark on 03-21-2025 Eosinophils/100 WBC (Bld) 3.2 % 0-5 [facility] Erythrocyte distribution wid th ratioOrdered By: José Miguel Clark on 03-21-2025 Erythrocyte distribution width (RBC) [Ratio] 13.0 % 11.6-14.6 [facility] Erythrocyte distribution wid th standard deviationOrdered By: José Miguel Clark on 03-21-2025 Erythrocyte distribution width (RBC) [Ratio] 41.2 fl 35.1-43.9 [facility] Glomerular filtration rate ( GFR) estimation/1.73 sq m using serum, plasma, or whole bOrdered By: José Miguel Clark on 03-21-2025 GFR/1.73 sq M.predicted among non-blacks MDRD (S/P/Bld) [Vol rate/Area] 112 mL/min/{1.73_m2} >60 [facility] Comment on above: mL/min/1.73m2 CKD-EP I Creatinine Equation (2020) Hematocrit Auto (Bld) [Volum e fraction]Ordered By: José Miguel Clark on 03-21-2025 Hematocrit (Bld) [Volume fraction] 43.9 % 37-47 [facility] Hemoglobin measurementOrdere d By: José Miguel Clark on 03-21-2025 Hemoglobin (Bld) [Mass/Vol] 14.6 g/dL 12.0-15.0 [facility] Immature granulocytes/100 WB C Auto (Bld)Ordered By: José Miguel Clark on 03-21-2025 Immature granulocytes/100 WBC (Bld) 0.200 % 0.0-0.9 [facility] Comment on above: IG% - Immature Granu locytes (promyelocytes, myelocytes and metamyelocytes) > 1% indicates that a LEFT SHIFT is Present. MCV (mean corpuscular volume ) determinationOrdered By: José Miguel Clark on 03-21-2025 MCV (RBC) [Entitic vol] 87.5 fL 81-99 [facility] Mean corpuscular hemoglobin (MCH) determinationOrdered By: José Miguel Clark on 03-21-2025 MCH (RBC) [Entitic mass] 29.1 pg 27.0-32.0 [facility] Mean corpuscular hemoglobin concentration (MCHC) determinationOrdered By: José Miguel Clark on 03-21-2025 MCHC (RBC) [Mass/Vol] 33.3 g/dL 32-36 [facility] Mean platelet volume determi nationOrdered By: José Miguel Clark on 03-21-2025 Platelet mean volume (Bld) [Entitic vol] 9.5 fL 6.2-12.0 [facility] Monocyte percentageOrdered B y: José Miguel Clark on 03-21-2025 Monocytes/100 WBC (Bld) 9.3 % 0-10 [facility] Neutrophil percentageOrdered By: José Miguel Clark on 03-21-2025 Neutrophils/100 WBC (Bld) 39.0 % Low 47-70 [facility] Nucleated red blood cell per centageOrdered By: José Miguel Clark on 03-21-2025 Nucleated RBC/100 WBC (Bld) [Ratio] 0 % 0-5 [facility] Platelet countOrdered By: Kennedy Clark on 03-21-2025 Platelets (Bld) [#/Vol] 255 10*3/uL 150-450 [facility] Potassium measurement (mass/ volume)Ordered By: José Miguel Clark on 03-21-2025 Potassium (Unsp spec) [Mass/Vol] 4.2 mmol/L 3.3-5.1 [facility] RBC Auto (Bld) [#/Vol]Ordere d By: José Miguel Clark on 03-21-2025 RBC (Bld) [#/Vol] 5.02 10*6/uL 4.2-5.4 [facility] Serum creatinine measurement (mass/volume)Ordered By: José Miguel Clark on 03-21-2025 Creatinine [Mass/Vol] 0.75 mg/dL 0.70-1.20 [facility] Serum glucose measurement (m ass/volume)Ordered By: José Miguel Clark on 03-21-2025 Glucose [Mass/Vol] 87 mg/dL 70-99 [facility] Serum or plasma calcium paola urement (mass/volume)Ordered By: José Miguel Clark on 03-21-2025 Calcium [Mass/Vol] 9.4 mg/dL 7.6-11.0 [facility] Serum or plasma urea nitroge n measurement (mass/volume)Ordered By: José Miguel Clark on 03-21-2025 Urea nitrogen [Mass/Vol] 9 mg/dL 4-19 [facility] Sodium levelOrdered By: José Miguel Clark on 03-21-2025 Sodium [Moles/Vol] 139 mmol/L 133-145 [facility] Venous Duplex US, Unilateral on 03-21-2025 Venous Duplex US, Unilateral [facility] [address] [place] [address] Venous Duplex US, Unilateral 03/21/25 1157 MR#: [id number] Acct: [id number] Name: LALITHA GARCIA Rep #: [id number] : 1995 29 From: Emilio Arredondo MD Attending Dr: Status: DEP ER Ordering Dr: José Miguel Clark DO Date: 03/21/25 Location: ED Sex: F AA Admitted: Reason For Study Reason For Study: Swelling LLE RIGHT LEFT CFV is compressible, spontaneous, phasic, competent GSV is normal. and demonstrates normal augmentation. CFV is compressible, spontaneous, phasic, competent, Procedure and demonstrates normal augmentation. This is a venous duplex using B-mode, color flow and FV is compressible, spontaneous, phasic, competent spectral Doppler. and demonstrates normal augmentation. Exam performed portable in ED. POP V is compressible, spontaneous, phasic, competent The study was technically difficult. and demonstrates normal augmentation. Unable to visualize prox/mid calf veins due to body T/P Trunk is compressible. habitus. PTV is compressible. A preliminary report was called and/or faxed to LT PerV is compressible. Patients RN. VL/Venous Duplex US, Unilateral Interpretation Summary Deep veins of the left lower extremity are patent and compressible segmentally. There is no evidence of left lower extremity deep vein thrombosis. Valvular competence appears intact within the proximal deep venous system on the left . The left great saphenous vein appears patent and compressible segmentally. The right common femoral vein is patent and compressible . ___ Ordering Physician: José Miguel Clark Performed By: Morena Fuentes, SHANE, RVT 03/21/251656 Date Emilio Arredondo MD CC: Dr. Jsoé Miguel Clark, DO; No Primary Care Physician Date Dictated: 03/21/251156 Date Transcribed: 03/21/251656 Cable Installation Manager: Signed Normal [facility] Venous duplex ultrasound rep ortOrdered By: Emilio Arredondo on 03-21-2025 US Vein [facility] [address] [place] [address] Venous Duplex US, Unilateral 03/21/251156 MR#: [id number] Acct: [id number] Name: LALITHA GARCIA Rep #:[id number] : 1995 29 From: Emilio Arredondo MD Attending Dr: Status: DEP E R Ordering Dr: José Miguel Clark DO Date: 0 03/21/25 Location: ED Sex: F AA Admitted: Reason For Study Reason For Study: Swelling LLE RIGHT LEFT CFV is compressible, spontaneous, phasic, competent GSV is normal. and demonstrates normal augmentation. CFV is compressible, spontaneous, phasic, competent, Procedure and demonstrates normal augmentation. This is a venous duplex using B-mode, color flow and FV is compressible, spontaneous, phasic, competent spectral Doppler. and demonstrates normal augmentation. Exam performed portable in ED. POP V is compressible, spontaneous, phasic, competent The study was technically difficult. and demonstrates normal augmentation. Unable to visualize prox/mid calf veins due to body T/P Trunk is compressible. habitus. PTV is compressible. A preliminary report was called and/or faxed to LT PerV is compressible. Patients RN. VL/Venous Duplex US, Unilateral Interpretation Summary Deep veins of the left lower extremity are patent and compressible segmentally. There is no evidence of left lower extremity deep vein thrombosis. Valvular competence appears intact within the proximal deep venous system on the left . The left great saphenous vein appears patent and compressible segmentally. The right common femoral vein is patent and compressible . ___ Ordering Physician: José Miguel Clark Performed By: Morena Fuentes, SHANE, RVT 03/21/25 1657 Date _ Emilio Arredondo MD CC: Dr. José Miguel Clark DO; No Primary Care Physician ~ Date Dictated: 03/21/25 1157 Date Transcribed: 03/21/251656 Cable Installation Manager: Signed [facility] Other Phone: White blood cell (WBC) count Ordered By: José Miguel Clark on 03-21-2025 WBC (Bld) [#/Vol] 5.6 10*3/uL 4.4-11.0 [facility] 02-18-2025 CNPN Telephone (INTMMM) ----- LALITHA GARCIA ([id number]) 1995 F Date Time Provider Department 02/18/25 ROBIN CASEY INTMMM During your visit today, we recorded the following information about you: Amy Arnett 02/18/2025 4:00 PM Signed Spoke with patient regarding today's same day scheduled er follow up appointment. She forgot she set up this appointment. She did want to reschedule but due to Dr. Casey's schedule patient was given the [facility] phone number at [phone]. Patient understood that she needs to contact the call center. DALY Peters [phone] Allergies As of Date: 02/18/2025 Noted Allergy Reaction LATEX 07/09/2024 9 - Itching Date Reviewed: 02/17/2025 Reviewed by: Aram Leal, RN - Fully Assessed Reason for Visit: Missed [...] Encounter Status:Closed by AMY ARNETT on 02/18/25 Normal [facility] ED NOTEon 02-17-2025 ED NOTE HNO ID: [id number] Author: ARAM LEAL RN Service: ? Author Type: Registered Nurse Type: ED Notes Filed: 02/17/2025 23:12 Note Text: D/c instructions discussed. Pt verbalized understanding. No questions/concerns at this time. Pt in no apparent distress [facility] ED NOTE HNO ID: [id number] Author: ARAM LEAL RN Service: ? Author Type: Registered Nurse Type: ED Notes Filed: 02/17/2025 22:13 Note Text: Pt states waking up this morning with eye irritation. I don't know if it's a dust particle but its really irritating. Pt states 6/10 pain in L eye. Pt states blurry vision in L eye [facility] ED PROV NOTEon 02-17-2025 ED PROV NOTE HNO ID: [id number] Author: LILIAN PRICE PA-C Service: Emergency Medicine Author Type: Physician Utility Engineer Type: ED Provider Notes Filed: 02/17/2025 23:11 [...] ADENOIDECTOMY No family history on file. Social History[1] ALLERGIES Allergen Reactions - Latex Itching Review of Systems Eyes: Positive for pain, discharge (Watering) and redness. Visual disturbance: Blurred, no loss of vision. All other systems reviewed and are negative. Physical Exam Vitals [02/17/252] BP Pulse Temp Temp src Resp SpO2 [...] Currently Types: Marijuana - Sexual activity: Yes Frank[facility] (more content not included)... [facility] Telephone (GENI) ----- LALITHA GARCIA ([id number]) 1995 F Date Time Provider Department 01/27/25 ALEJANDRINA VAUGHN [facility] During your visit today, we recorded the following information about you: Alejandrina Vaughn 01/27/2025 4:17 PM Signed Checked benefit-yes I.D.=[id number] Nutrtition requirement -0 Special instructions-call for preD [phone] Coverage %100 Deductible= N/a Out of Pocket Max = N/a I.O.Q/ C.O.E/ BRS =N/a Rep name=wen Reference#[id number] Allergies As of Date: 01/27/2025 Noted Allergy [...] Encounter Status:Closed by ALEJANDRINA VAUGHN on 01/27/25 Normal [facility] Absolute lymphocyte countOrd ered By: Gomez Philippe on 01-22-2025 Lymphocytes Auto (Unsp spec) [#/Vol] 2.29 10*3/uL 0.83-4.51 [facility] Absolute neutrophil countOrd ered By: Gomez Philippe on 01-22-2025 Neutrophils (Bld) [#/Vol] 2.5 10*3/uL 2.0-7.7 [facility] Anion gap in Serum or Plasma Ordered By: Gomez Philippe on 01-22-2025 Anion gap [Moles/Vol] 9 mmol/L 5- [facility] Automated lymphocyte count a s percentage of total leukocytesOrdered By: Gomez Philippe on 01-22-2025 Lymphocytes/100 WBC Auto (Unsp spec) 41.5 % High 19-41 [facility] BUN/creatinine ratioOrdered By: Gomez Philippe on 01-22-2025 Urea nitrogen/Creatinine [Mass ratio] 17.2 mg/mg 10- [facility] Basic Metabolic Profile (BMP )on 01-22-2025 BUN/CRE 17.2 RATIO Normal - [facility] Comment on above: Performed By: #### L 500.2500, L100.0100 ####[facility] [address] [place], [address] Calcium [Mass/Vol] 9.0 mg/dL Normal 7.6-11.0 [facility] Comment on above: Performed By: #### L 500.2500, L100.0100 ####[facility] [address] [place], [address] Chloride [Moles/Vol] 105 mmol/L Normal 98-108 [facility] Comment on above: Performed By: #### L 500.2500, L100.0100 ####[facility] [address] [place], [address] CO2 [Moles/Vol] 25.5 mmol/L Normal 21.0-32.0 [facility] Comment on above: Performed By: #### L 500.2500, L100.0100 ####[facility] [address] [place], [address] Creatinine [Mass/Vol] 0.68 mg/dL Low 0.70-1.20 [facility] Comment on above: Performed By: #### L 500.2500, L100.0100 ####[facility] [address] [place], [address] ECRCL 237.01 ml/min Normal 50-250 [facility] Comment on above: Performed By: #### L 500.2500, L100.0100 ####[facility] [address] [place], [address] GAP 9 Normal 5-15 [facility] Comment on above: Performed By: #### L 500.2500, L100.0100 ####[facility] [address] [place], [address] GFR/1.73 sq M.predicted among non-blacks MDRD (S/P/Bld) [Vol rate/Area] 122 mL/min/{1.73_m2} Normal >60 [facility] Comment on above: Result Comment: mL/m in/1.73m2 CKD-EPI Creatinine Equation (2020) Performed By: #### L 500.2500, L100.0100 ####[facility] [address] [place], [address] Glucose [Mass/Vol] 105 mg/dL High 70-99 [facility] Comment on above: Performed By: #### L 500.2500, L100.0100 ####[facility] [address] [place], [address] Potassium [Moles/Vol] 4.2 mmol/L Normal 3.3-5.1 [facility] Comment on above: Result Comment: Hemo lysis present, Results??could be affected. ?? Performed By: #### L 500.2500, L100.0100 ####[facility] [address] [place], [address] Sodium [Moles/Vol] 139 mmol/L Normal 133-145 [facility] Comment on above: Performed By: #### L 500.2500, L100.0100 ####[facility] [address] [place], [address] Urea nitrogen [Mass/Vol] 12 mg/dL Normal 4-19 [facility] Comment on above: Performed By: #### L 500.2500, L100.0100 ####[facility] [address] [place], [address] Basophil percentageOrdered B y: Gomez Le on 01-22-2025 Basophils/100 WBC (Bld) 0.5 % 0-1 [facility] CBC + diff autoon 01-22-2025 CBC W Auto Differential panel (Bld) [facility] CBC W/Diff, Automatedon Absolute Lymph 2.29 X10 3/uL Normal 0.83-4.51 [facility] Comment on above: Performed By: #### L 100.0100 #### [facility] [address] [place], [address] Absolute Neut 2.5 X10 3/uL Normal 2.0-7.7 [facility] Comment on above: Performed By: #### L 100.0100 #### [facility] [address] [place], [address] Basophils/100 WBC (Bld) 0.5 % Normal 0-1 [facility] Comment on above: Performed By: #### L 100.0100 #### [facility] [address] [place], [address] Eosinophils/100 WBC (Bld) 3.1 % Normal 0-5 [facility] Comment on above: Performed By: #### L 100.0100 #### [facility] [address] [place], [address] Erythrocyte distribution width (RBC) [Ratio] 12.9 % Normal 11.6-14.6 [facility] Comment on above: Performed By: #### L 100.0100 #### [facility] [address] [place], [address] Hematocrit (Bld) [Volume fraction] 41.5 % Normal 37-47 [facility] Comment on above: Performed By: #### L 100.0100 #### [facility] [address] [place], [address] Hemoglobin (Bld) [Mass/Vol] 13.6 g/dL Normal 12.0-15.0 [facility] Comment on above: Performed By: #### L 100.0100 #### [facility] [address] [place], [address] IG% 0.200 Normal 0.0-0.9 [facility] Comment on above: Result Comment: IG% - Immature Granulocytes (promyelocytes, myelocytes and metamyelocytes) > 1% indicates that a LEFT SHIFT is Present. Performed By: #### L 100.0100 #### [facility] [address] [place], [address] Lymphocytes/100 WBC (Bld) 41.5 % High 19-41 [facility] Comment on above: Performed By: #### L 100.0100 #### [facility] [address] [place], [address] MCH (RBC) [Entitic mass] 28.9 pg Normal 27.0-32.0 [facility] Comment on above: Performed By: #### L 100.0100 #### [facility] [address] [place], [address] MCHC (RBC) [Mass/Vol] 32.8 g/dL Normal 32-36 [facility] Comment on above: Performed By: #### L 100.0100 #### [facility] [address] [place], [address] MCV (RBC) [Entitic vol] 88.3 fL Normal 81-99 [facility] Comment on above: Performed By: #### L 100.0100 #### [facility] [address] [place], [address] Monocytes/100 WBC (Bld) 8.7 % Normal 0-10 [facility] Comment on above: Performed By: #### L 100.0100 #### [facility] [address] [place], [address] Neutrophils/100 WBC (Bld) 46.0 % Low 47-70 [facility] Comment on above: Performed By: #### L 100.0100 #### [facility] [address] [place], [address] Nucleated RBC (Bld) [#/Vol] 0 10*3/uL Normal 0-5 [facility] Comment on above: Performed By: #### L 100.0100 #### [facility] [address] [place], [address] Platelet mean volume (Bld) [Entitic vol] 9.3 fL Normal 6.2-12.0 [facility] Comment on above: Performed By: #### L 100.0100 #### [facility] [address] [place], [address] Platelets (Bld) [#/Vol] 313 10*3/uL Normal 150-450 [facility] Comment on above: Performed By: #### L 100.0100 #### [facility] [address] [place], [address] RBC (Bld) [#/Vol] 4.70 10*6/uL Normal 4.2-5.4 [facility] Comment on above: Performed By: #### L 100.0100 #### [facility] [address] [place], [address] RDW SD 41.5 fl Normal 35.1-43.9 [facility] Comment on above: Performed By: #### L 100.0100 #### [facility] [address] [place], [address] WBC (Bld) [#/Vol] 5.5 10*3/uL Normal 4.4-11.0 [facility] Comment on above: Performed By: #### L 100.0100 #### [facility] [address] [place], [address] Absolute Neut Normal 2.0-7.7 [facility] Comment on above: Result Comment: This specimen has been REJECTED due to Laboratory criteria: Clotted. LAURY SANTANA has been notified of need of recollection. 01/22/252258 Sofia Bonnie Performed By: #### L 500.2500, L100.0100 ####[facility] [address] [place], [address] HCT Normal 37-47 [facility] Comment on above: Result Comment: This specimen has been REJECTED due to Laboratory criteria: Clotted. LAURY SANTANA has been notified of need of recollection. 01/22/252258 Sofia Bonnie Performed By: #### L 500.2500, L100.0100 ####[facility] [address] [place], [address] HGB Normal 12.0-15.0 [facility] Comment on above: Result Comment: This specimen has been REJECTED due to Laboratory criteria: Clotted. LAURY SANTANA has been notified of need of recollection. 01/22/252258 Sofia Bonnie Performed By: #### L 500.2500, L100.0100 ####[facility] [address] [place], [address] MCH Normal 27.0-32.0 [facility] Comment on above: Result Comment: This specimen has been REJECTED due to Laboratory criteria: Clotted. LAURY SANTANA has been notified of need of recollection. 01/22/252258 Sofia Bonnie Performed By: #### L 500.2500, L100.0100 ####[facility] [address] [place], [address] MCHC Normal 32-36 [facility] Comment on above: Result Comment: This specimen has been REJECTED due to Laboratory criteria: Clotted. LAURY SANTANA has been notified of need of recollection. 01/22/252258 Sofia Bonnie Performed By: #### L 500.2500, L100.0100 ####[facility] [address] [place], [address] MCV Normal 81-99 [facility] Comment on above: Result Comment: This specimen has been REJECTED due to Laboratory criteria: Clotted. LAURY SANTANA has been notified of need of recollection. 01/22/252258 Sofia Bonnie Performed By: #### L 500.2500, L100.0100 ####[facility] [address] [place], [address] NEUT% Normal 47-70 [facility] Comment on above: Result Comment: This specimen has been REJECTED due to Laboratory criteria: Clotted. LAURY SANTANA has been notified of need of recollection. 01/22/252258 Sofia Bonnie Performed By: #### L 500.2500, L100.0100 ####[facility] [address] [place], [address] PLT Normal 150-450 [facility] Comment on above: Result Comment: This specimen has been REJECTED due to Laboratory criteria: Clotted. LAURY MAX has been notified of need of recollection. 01/22/252258 Sofia Bonnie Performed By: #### L 500.2500, L100.0100 ####[facility] [address] [place], [address] RBC Normal 4.2-5.4 [facility] Comment on above: Result Comment: This specimen has been REJECTED due to Laboratory criteria: Clotted. LAURY MAX has been notified of need of recollection. 01/22/252258 Sofia Bonnie Performed By: #### L 500.2500, L100.0100 ####[facility] [address] [place], [address] RDW CV Normal 11.6-14.6 [facility] Comment on above: Result Comment: This specimen has been REJECTED due to Laboratory criteria: Clotted. LAURY SANTANA has been notified of need of recollection. 01/22/252258 Sofia Bonnie Performed By: #### L 500.2500, L100.0100 ####[facility] [address] [place], [address] RDW SD Normal 35.1-43.9 [facility] Comment on above: Result Comment: This specimen has been REJECTED due to Laboratory criteria: Clotted. LAURY MAX has been notified of need of recollection. 01/22/252258 Sofia Bonnie Performed By: #### L 500.2500, L100.0100 ####[facility] [address] [place], [address] WBC Normal 4.4-11.0 [facility] Comment on above: Result Comment: This specimen has been REJECTED due to Laboratory criteria: Clotted. LAURY ASNTANA has been notified of need of recollection. 01/22/252258 Sofia Bonnie Performed By: #### L 500.2500, L100.0100 ####[facility] [address] [place], [address] Carbon dioxide, total [Moles /volume] in Central venous bloodOrdered By: Gomez Philippe on 01-22-2025 CO2 [Moles/Vol] 25.5 mmol/L 21.0-32.0 [facility] Chloride assayOrdered By: Gerson Philippe on 01-22-2025 Chloride [Moles/Vol] 105 mmol/L 98-108 [facility] Emergency Department Summary on 01-22-2025 Emergency Department Summary [facility] Medical Records Department [address] [place] [address] Emergency Department Summary 01/22/25 MR#: [id number] Acct: [id number] Name: LALITHA GARCIA Rep #: [id number] : 1995 29 From: Gomez Martinez PCP: Care Physician,No Primary Status:REG ER Location: ED HPI History of Present Illness Chief Complaint: Shortness of Breath Informant: patient Narrative Narrative: Presents concerning swelling left ankle over the last couple days. States initially had mild pain in the However it went away. She traveled back in October over 3 months ago to [place]. She states when she returned she had leg pains bilaterally went to an outside ED ultrasounds both legs were negative. Normal urination. Nursing triage notes dyspnea however she denies dyspnea. States she has anxiety and smokes. No vomiting no diarrhea. No history of blood clots in legs or lungs. She is she is been elevating. She is making normal urine output. [facility] Medical History Hypertension Ovarian cyst Preeclampsia Home Medications ???Medication ???Instructions ???Recorded ???Last Taken ???Type norethindrone acetate 5 mg tablet 5 mg PO .COMPLEX #45 tabs 4 Unknown Rx Allergy/AdvReac Type Severity Reaction Status Date / Time latex AdvReac Rash Verified 01/22/25 21:48 Family History Aunt Breast cancer, Onset Age: 34 Grandfather Throat cancer Surgical History History of tonsillectomy Social History adopted: No number of children: 1 current occupational status: employed sexually active: Yes Smoking Status: Current every day smoker tobacco type: cigarettes and e-cigarettes alcohol intake: never substance use type: does not use and marijuana caffeine: Yes Type: carbonated beverages danna/episcopalian: AGNOSTIC seatbelt use: always do you feel safe at home: Yes ROS ROS ED Constitutional Constitutional ED: Denies fever(s) Cardiovascular Cardiovascular: Denies chest pain Respiratory/Chest Respiratory/Chest: Denies cough Gastrointestinal Gastrointestinal: Denies diarrhea or vomiting Musculoskeletal Musculoskeletal: Reports other Details: Swelling left ankle. ; Denies none Integumentary Denies rash or wounds Neurologic Neurologic: Denies weakness EXAM Physical Exam Const Vital Signs: 01/22/25 21:45 01/22/25 22:03 01/22/25 22:05 Temperature 97.6 F L Temperature Source Temporal Pulse Rate 110 H Respiratory Rate 18 Respiratory Effort Normal Normal Respiratory Depth Normal Respiratory Pattern Normal Normal Blood Pressure 157/106 H Blood Pressure Mean 123 Pulse Ox 97 Oxygen Delivery Method Room Air Room Air Positive well nourished and well developed Constitutional Narrative: BMI 70 General Appearance ED: well developed HEENT normocephalic and atraumatic Eyes General Eye ED: Yes normal appearance of both eyes Neck full ROM Resp normal respiratory effort and normal air movement Cardio regular rate and regular rhythm Rate: other Other Details: Heart rate 94 GI soft to palpation Extremity normal to inspection and full ROM Extremity Narrative: Left lower extremity: Very mild swelling ankle. No redness no warmth. No calf tenderness. Soft compartments. Pulses intact distally. Neuro oriented x3 Skin no rashes or lesions noted and no wounds MDM MDM MDM Narrative Medical decision making narrative: Interventions / MDM: Differential diagnosis: Left lower extremity swelling, history of asthma Diagnosis considered but do not suspect: Proximal DVT however bedside ultrasound negative, electrolyte abnormalities however labs normal. My EKG interpretation: N/A Imaging independently reviewed and interpreted by myself: N/A External documents reviewed: N/A Test considered but not ordered:N/A ED course: isolated swelling left ankle. Patient traveled over 3 months ago. She reported ultrasounds afterwards were negative. She denies any urinary changes. She has not any recent blood work. I will check basic labs. No official ultrasound available at this time. I will perform bedside ultrasound to point regions for evaluation. 2244: Left lower extremity 2 point bedside ultrasound performed by myself no DVT proximal third along with popliteal. Patient reassured. Awaiting lab work results. 2319: Lab work normal creatinine 0.68. Reassuring findings. Follow-up given along with outpatient formal ultrasound ordered. Re-evaluation: stable Disposition discussed with patient/family/significan t other: Patient Case discussed with consulting clinici (more content not included)... Normal [facility] Eosinophil percentageOrdered By: Gomez Philippe on 01-22-2025 Eosinophils/100 WBC (Bld) 3.1 % 0-5 [facility] Erythrocyte distribution wid th ratioOrdered By: Gomez Philippe on 01-22-2025 Erythrocyte distribution width (RBC) [Ratio] 12.9 % 11.6-14.6 [facility] Erythrocyte distribution wid th standard deviationOrdered By: Gomez Philippe on 01-22-2025 Erythrocyte distribution width (RBC) [Ratio] 41.5 fl 35.1-43.9 [facility] Glomerular filtration rate ( GFR) estimation/1.73 sq m using serum, plasma, or whole bOrdered By: Gomez Philippe on 01-22-2025 GFR/1.73 sq M.predicted among non-blacks MDRD (S/P/Bld) [Vol rate/Area] 122 mL/min/{1.73_m2} >60 [facility] Comment on above: mL/min/1.73m2 CKD-EP I Creatinine Equation (2020) Hematocrit Auto (Bld) [Volum e fraction]Ordered By: Gomez Philippe on 01-22-2025 Hematocrit (Bld) [Volume fraction] 41.5 % 37-47 [facility] Hemoglobin measurementOrdere d By: Gomez Philippe on 01-22-2025 Hemoglobin (Bld) [Mass/Vol] 13.6 g/dL 12.0-15.0 [facility] Immature granulocytes/100 WB C Auto (Bld)Ordered By: Gomez Philippe on 01-22-2025 Immature granulocytes/100 WBC (Bld) 0.200 % 0.0-0.9 [facility] Comment on above: IG% - Immature Granu locytes (promyelocytes, myelocytes and metamyelocytes) > 1% indicates that a LEFT SHIFT is Present. MCV (mean corpuscular volume ) determinationOrdered By: Gomez Philippe on 01-22-2025 MCV (RBC) [Entitic vol] 88.3 fL 81-99 [facility] Mean corpuscular hemoglobin (MCH) determinationOrdered By: Gomez Philippe on 01-22-2025 MCH (RBC) [Entitic mass] 28.9 pg 27.0-32.0 [facility] Mean corpuscular hemoglobin concentration (MCHC) determinationOrdered By: Gomez Philippe on 01-22-2025 MCHC (RBC) [Mass/Vol] 32.8 g/dL 32-36 [facility] Mean platelet volume determi nationOrdered By: Gomez Philippe on 01-22-2025 Platelet mean volume (Bld) [Entitic vol] 9.3 fL 6.2-12.0 [facility] Monocyte percentageOrdered B y: Gomez Philippe on 01-22-2025 Monocytes/100 WBC (Bld) 8.7 % 0-10 [facility] Neutrophil percentageOrdered By: Gomez Philippe on 01-22-2025 Neutrophils/100 WBC (Bld) 46.0 % Low 47-70 [facility] Nucleated red blood cell per centageOrdered By: Gomez Philippe on 01-22-2025 Nucleated RBC/100 WBC (Bld) [Ratio] 0 % 0-5 [facility] Platelet countOrdered By: Gerson Philippe on 01-22-2025 Platelets (Bld) [#/Vol] 313 10*3/uL 150-450 [facility] Potassium measurement (mass/ volume)Ordered By: Gomez Philippe on 01-22-2025 Potassium (Unsp spec) [Mass/Vol] 4.2 mmol/L 3.3-5.1 [facility] Comment on above: Hemolysis present, R esults could be affected. RBC Auto (Bld) [#/Vol]Ordere d By: Gomez Philippe on 01-22-2025 RBC (Bld) [#/Vol] 4.70 10*6/uL 4.2-5.4 [facility] Serum creatinine measurement (mass/volume)Ordered By: Gomez Philippe on 01-22-2025 Creatinine [Mass/Vol] 0.68 mg/dL Low 0.70-1.20 [facility] Serum glucose measurement (m ass/volume)Ordered By: Gomez Philippe on 01-22-2025 Glucose [Mass/Vol] 105 mg/dL High 70-99 [facility] Serum or plasma calcium paola urement (mass/volume)Ordered By: Gomez Philippe on 01-22-2025 Calcium [Mass/Vol] 9.0 mg/dL 7.6-11.0 [facility] Serum or plasma urea nitroge n measurement (mass/volume)Ordered By: Gomez Philippe on 01-22-2025 Urea nitrogen [Mass/Vol] 12 mg/dL 4-19 [facility] Sodium levelOrdered By: Gomez Philippe on 01-22-2025 Sodium [Moles/Vol] 139 mmol/L 133-145 [facility] White blood cell (WBC) count Ordered By: Gomez Philippe on 01-22-2025 WBC (Bld) [#/Vol] 5.5 10*3/uL 4.4-11.0 [facility] CNOVon 12-08-2024 CNOV Office Visit ([facility]) ----- LALITHA GARCIA ([id number]) 1995 F Date Time Provider Department 12/08/24 10:40 AM ALBER WOLFF [facility] During your visit today, we recorded [...] DAY. - PROVIDER ORDERED FOLLOW UP; Future DAWRIN (obstructive sleep apnea) - PAP TITRATION PSG (CPAP, BIPAP, ASV); Future - CONSULT TO OPTOMETRY; Future - PROVIDER ORDERED FOLLOW UP; Future Lalitha Tatum Garcia is a 29 year old year old female, with a history of morbid obesity, DARWIN, and episodic migraine. Her neurological examination is essentially normal at this visit. Pt reports she had optometry exam in last 6 months at [facility], and knows of no abnormalities. Given ANGUIANO's [...] leaving clinic (more content not included)... Normal [facility] ED NOTEon 11-17-2024 ED NOTE HNO ID: [id number] Author: ENOC RICHARDS, TOMMIE Service: Emergency Medicine Author Type: Registered Nurse Type: ED Notes Filed: 11/17/2024 00:41 Note Text: Discharge instructions presented to patient, no questions at this time. MyChart activation information given to patient. Educated patient on importance of follow up as needed, patient verbalized understanding. Patient ambulatory upon discharge from ED [facility] ED PROV NOTEon 11-17-2024 ED PROV NOTE HNO ID: [id number] Author: LIONEL HUFFMAN PA-C Service: Emergency Medicine Author Type: Physician Utility Engineer Type: ED Provider Notes Filed: 11/17/2024 00:41 Note Text: ED Provider Note Patient Name: Lalitha Garcia : 1995 SERVICE DATE: 11/16/24 History No chief complaint on file. 28-year-old female presents complaint of atraumatic right lower extremity pain. The patient states concern for DVT. She reports that she recently drove to [place] and back. Denies any obvious asymmetry. She [...] Weight Height 11/16/24 2228 11/16/24 2228 11/16/24 222 -- 11/16/24 22211/16/242227 -- -- 154/103 (!) 103 36.8 ?C [...] and Discharge Orders Discharge Orders None SIGNATURE: SANGITA Guzmán DAVID M 11/17/24 0041 [facility] ALLIED HEALTHon 11-16-2024 ALLIED HEALTH HNO ID: [id number] Author: JOSEY GILLIS RT(R) Service: ? Author Type: Space Operations Type: Allied Health Filed: 11/16/2024 22:57 Note [...] PATIENT PRESENTS WITH AN IMPLANTABLE OR ATTACHED REVENUE TAX SPECIALIST: No RADIOLOGY DEPARTMENT: Ultrasound PERIPHERAL IV DATA: Not applicable SIGNED BY: RT Vini(R) November 16, 2024 10:57 PM [facility] ED NOTEon 11-16-2024 ED NOTE HNO ID: [id number] Author: ZIA DAWSON RN Service: ? Author Type: Registered Nurse Type: ED Notes Filed: 11/16/2024 22:24 Note Text: Patient C/O RLE pain after a ten hour drive from [place]. Patient reports she is unable to tell if there is swelling or not. Pain is from the front of the shine up to the front of the thigh. [facility] US DVT LOWER RTon 11-16-2024 US DVT LOWER RT * * *Final Report* * * DATE OF EXAM: Nov 16 2024 10:58PM [facility] 1007 - US DVT LOWER RT / [...] and stored in a permanent archive. MQ: [id number] COMPARISON: None RESULT: RIGHT LOWER EXTREMITY PROXIMAL [...] on Nov 17 2024 12:20AM EST [id number] [facility] 11-12-2024 [facility] Telephone (OBGYWM) ----- LALITHA GARCIA ([id number]) 1995 F Date Time Provider Department 11/12/24 GRIS QUINTERO During your visit today, we recorded [...] Encounter Status:Closed by GRIS QUINTERO on 11/12/24 [facility] CNOVon 11-02-2024 CNOV Office Visit (OBGYWM ) ----- LALITHA GARCIA ([id number]) 1995 F Date Time Provider Department 11/02/24 11:30 AM SHAHNAZ MARIN During your visit today, we recorded the following information about you: Blood pressure Weight 130/72 171 kg Shahnaz Marin MD 11/02/2024 12:17 PM Signed Gear Tester offered: Patient declines. Lalitha presents today for [...] IUD source: office provided IUD lot #: [id number] Exp date: 11/20/2026 [facility] [id number] UNIVERSAL PROTOCOL / SAFETY CHECKLIST Procedure to [...] sooner as needed. MD Demi Lance Reanna DC 11/02/2024 11:31 AM Signed POST IUD INSTRUCTIONS [...] contact the office. Referring Provider: SHAHNAZ MARIN [[id number]] Allergies As of Date: 11/02/2024 Noted Allergy Reaction LATEX 07/09/2024 9 - Itching Date Reviewed: 11/02/2024 Reviewed by: Shahnaz Marin MD - Fully Assessed Reason for Visit: Insertion Of IUD [291] Primary Visit Diagnosis:Encounter for IUD insertion [Z30.430] Order(s):INSERT INTRAUTERINE DEVICE [3956555] Order #: [id number] [] levonorgestrel 21 mcg/24hr (up to 8 yrs) 52 mg 1 each intrauterine device (MIRENA)Disp: Rfl: levonorgestrel (MIRENA) 21 mcg/24hr (up to 8 yrs) 52 mg IUD1 each by INTRAUTERINE route as directed.Disp: 1 eachRfl: 0 UA DIP,URINE HCG (POC) [8894674] Order #: [id number]. #:[id number] Prescriptions as of 11/02/2024 - levonorgestrel (MIRENA) [...] 06/06/2014 Fost (more content not included)... Normal [facility] UA DIP,URINE HCG (POC)on Beta HCG ( test) Ql (U) Negative Negative [facility] Comment on above: Location:[facility], [address], [place], [address] Cloth Examiner (POCT) Internal QC OK [facility] Location:[facility], [address], [place], [address] [facility] POINT OF CARE [facility] CNPNon 10-21-2024 CNPN Telephone (OBGYWM) ----- LALITHA GARCIA ([id number]) 1995 F Date Time Provider Department 10/21/24 MARIANA LUNA OBGYWTatum During your visit today, we recorded the following information about you: Jose Rojas, TOMMIE 10/21/2024 12:23 PM Signed Pt last saw JG 10/08/24 for AUB. [...] asking for Rx to be sent to [place] AND Pt will call and have Rx [...] intrauterine contraceptive device [Z30.430] Order(s):INSERT INTRAUTERINE DEVICE [[id number]] Order #: [id number] norethindrone (AYGESTIN) 5 mg tabletTake 1 tablet [...] bleeding during (more content not included)... Normal [facility] CBC panel Auto (Bld)on 10-08 Erythrocyte distribution width (RBC) [Ratio] 13.0 % Normal 11.5-15.0 [facility] Comment on above: Order Comment: Speci men Type: BLOOD SPECIMEN Ordering Facility: [facility] Address: [address] [place], [place] [address] Performed By: #### 5 8410-2 #### [facility] CLIA [id number] [address] [place] [address] [place] Hematocrit (Bld) [Volume fraction] 45.4 % Normal 36.0-46.0 [facility] Comment on above: Order Comment: Speci men Type: BLOOD SPECIMEN Ordering Facility: [facility] Address: [address] [place] [address] Performed By: #### 5 8410-2 #### [facility] CLIA [id number] [address] [place] [address] [place] Hemoglobin (Bld) [Mass/Vol] 15.1 g/dL Normal 11.5-15.5 [facility] Comment on above: Order Comment: Speci men Type: BLOOD SPECIMEN Ordering Facility: [facility] Address: [address] [place] [address] Performed By: #### 5 8410-2 #### [facility] CLIA [id number] [address] [place] [address] [place] MCH (RBC) [Entitic mass] 28.8 pg Normal 26.0-34.0 [facility] Comment on above: Order Comment: Speci men Type: BLOOD SPECIMEN Ordering Facility: [facility] Address: [address] [place] [address] Performed By: #### 5 8410-2 #### [facility] CLIA [id number] [address] [place] [address] [place] MCHC (RBC) [Mass/Vol] 33.3 g/dL Normal 30.5-36.0 [facility] Comment on above: Order Comment: Speci men Type: BLOOD SPECIMEN Ordering Facility: [facility] Address: [address] [place] [address] Performed By: #### 5 8410-2 #### [facility] CLIA [id number] [address] [place] [address] [place] MCV (RBC) [Entitic vol] 86.6 fL Normal 80.0-100.0 [facility] Comment on above: Order Comment: Speci men Type: BLOOD SPECIMEN Ordering Facility: [facility] Address: [address] [place] [address] Performed By: #### 5 8410-2 #### [facility] CLIA [id number] [address] [place] [address] [place] Nucleated RBC (Bld) [#/Vol] 10*3/uL Normal <0.01 [facility] Comment on above: Order Comment: Speci men Type: BLOOD SPECIMEN Ordering Facility: [facility] Address: [address] [place] [address] Performed By: #### 5 8410-2 #### [facility] CLIA [id number] [address] [place] [address] [place] Platelet mean volume (Bld) [Entitic vol] 9.5 fL Normal 9.0-12.7 [facility] Comment on above: Order Comment: Speci men Type: BLOOD SPECIMEN Ordering Facility: [facility] Address: [address] [place] [address] Performed By: #### 5 8410-2 #### [facility] CLIA [id number] [address] [place] [address] [place] Platelets (Bld) [#/Vol] 264 10*3/uL Normal 150-400 [facility] Comment on above: Order Comment: Speci men Type: BLOOD SPECIMEN Ordering Facility: [facility] Address: [address] [place] [address] Performed By: #### 5 8410-2 #### [facility] CLIA [id number] [address] [place] [address] [place] RBC (Bld) [#/Vol] 5.24 10*6/uL High 3.90-5.20 [facility] Comment on above: Order Comment: Speci men Type: BLOOD SPECIMEN Ordering Facility: [facility] Address: [address] [place] [address] Performed By: #### 5 8410-2 #### [facility] CLIA [id number] [place] [address] [place] [facility] WBC (Bld) [#/Vol] 4.47 10*3/uL Normal 3.70-11.00 [facility] Comment on above: Order Comment: Speci men Type: BLOOD SPECIMEN Ordering Facility: [facility] Address: [address] [place] [address] Performed By: #### 5 8410-2 #### [facility] CLIA [id number] [address] [place] [address] Comprehensive metabolic 2000 panelon 10-08-2024 Albumin [Mass/Vol] 4.1 g/dL Normal 3.9-4.9 [facility] Comment on above: Order Comment: Speci men Type: BLOOD SPECIMEN Ordering Facility: [facility] Address: [address] [place] [address] Performed By: #### 2 4323-8 #### [facility] CLIA [id number] [address] [place] [address] [place] ALP [Catalytic activity/Vol] 69 U/L Normal 34-123 [facility] Comment on above: Order Comment: Speci men Type: BLOOD SPECIMEN Ordering Facility: [facility] Address: [address] [place] [address] Performed By: #### 2 4323-8 #### [facility] CLIA [id number] [place] [address] [place] ALT [Catalytic activity/Vol] 23 U/L Normal 7-38 [facility] Comment on above: Order Comment: Speci men Type: BLOOD SPECIMEN Ordering Facility: [facility] Address: [address] [place] [address] Performed By: #### 2 4323-8 #### [facility] CLIA [id number] [place] [address] [place] Anion gap [Moles/Vol] 8 mmol/L Normal 8-15 [facility] Comment on above: Order Comment: Speci men Type: BLOOD SPECIMEN Ordering Facility: [facility] Address: [address] [place] [address] Performed By: #### 2 4323-8 #### [facility] CLIA [id number] [place] [address] [place] AST [Catalytic activity/Vol] 24 U/L Normal 13-35 [facility] Comment on above: Order Comment: Speci men Type: BLOOD SPECIMEN Ordering Facility: [facility] Address: [address] [place] [address] Performed By: #### 2 4323-8 #### [facility] CLIA [id number] [place] [address] [place] Bilirubin [Mass/Vol] 0.3 mg/dL Normal 0.2-1.3 [facility] Comment on above: Order Comment: Speci men Type: BLOOD SPECIMEN Ordering Facility: [facility] Address: [address] [place] [address] Performed By: #### 2 4323-8 #### [facility] CLIA [id number] [place] [address] [place] Calcium [Mass/Vol] 9.1 mg/dL Normal 8.5-10.2 [facility] Comment on above: Order Comment: Speci men Type: BLOOD SPECIMEN Ordering Facility: [facility] Address: [address] [place] [address] Performed By: #### 2 4323-8 #### [facility] CLIA [id number] [place] [address] [place] Chloride [Moles/Vol] 104 mmol/L Normal 98-107 [facility] Comment on above: Order Comment: Speci men Type: BLOOD SPECIMEN Ordering Facility: [facility] Address: [address] [place] [address] Performed By: #### 2 4323-8 #### [facility] CLIA [id number] [address] [place] [address] [place] CO2 [Moles/Vol] 26 mmol/L Normal 22-30 [facility] Comment on above: Order Comment: Specvirginia lara Type: BLOOD SPECIMEN Ordering Facility: [facility] Address: [address] [place] [address] Performed By: #### 2 4323-8 #### [facility] CLIA [id number] [address] [place] [address] [place] Creatinine [Mass/Vol] 0.64 mg/dL Normal 0.58-0.96 [facility] Comment on above: Order Comment: Speci men Type: BLOOD SPECIMEN Ordering Facility: [facility] Address: [address] [place] [address] Performed By: #### 2 4323-8 #### [facility] CLIA [id number] [address] [place] [address] [place] Creatinine and Glomerular filtration rate.predicted panel (S/P/Bld) 124 mL/min/1.73m??? Normal >=60 [facility] Comment on above: Order Comment: Speci men Type: BLOOD SPECIMEN Ordering Facility: [facility] Address: [address] [place] [address] Result Comment: Donna mated Glomerular Filtration Rate [...] GFR. Performed By: #### 2 4323-8 #### [facility] CLIA [id number] [address] [place] [address] [place] Glucose [Mass/Vol] 99 mg/dL Normal 74-99 [facility] Comment on above: Order Comment: Speci men Type: BLOOD SPECIMEN Ordering Facility: [facility] Address: [address] [place] [address] Result Comment: The [place] Diabetes Association (ADA) provides guidance for cutoff [...] Standards of Medical Care in Diabetes 2016, [place] Diabetes Association. Diabetes Care. 2016.39(Suppl 1). Performed By: #### 2 4323-8 #### [facility] CLIA [id number] [address] [place] [address] [place] Potassium [Moles/Vol] 4.4 mmol/L Normal 3.7-5.1 [facility] Comment on above: Order Comment: Paulino lara Type: BLOOD SPECIMEN Ordering Facility: [facility] Address: [address] [place] [address] Performed By: #### 2 4323-8 #### [facility] CLIA [id number] [address] [place] [address] [place] Protein [Mass/Vol] 7.0 g/dL Normal 6.3-8.0 [facility] Comment on above: Order Comment: Paulino lara Type: BLOOD SPECIMEN Ordering Facility: [facility] Address: [address] [place] [address] Performed By: #### 2 4323-8 #### [facility] CLIA [id number] [address] [place] [address] [place] Sodium [Moles/Vol] 138 mmol/L Normal 136-144 [facility] Comment on above: Order Comment: Paulino lara Type: BLOOD SPECIMEN Ordering Facility: [facility] Address: [address] [place] [address] Performed By: #### 2 4323-8 #### [facility] CLIA [id number] [address] Urea nitrogen [Mass/Vol] 8 mg/dL Normal 7-21 [facility] Comment on above: Order Comment: Speci men Type: BLOOD SPECIMEN Ordering Facility: [facility] Address: [address] [place] [address] Performed By: #### 2 4323-8 #### [facility] CLIA [id number] ED NOTEon 10-08-2024 ED NOTE HNO ID: [id number] Author: ELAIEN BORJAS, TOMMIE Service: ? Author Type: Registered Nurse Type: ED Notes Filed: 10/08/2024 08:08 Note Text: AVS reviewed with patient,all questions answered. PIV removed. Patient ambulates out of the ED with an upright steady gait. [facility] ED NOTE HNO ID: [id number] Author: IAM CHENG RN Service: ? Author Type: Registered Nurse Type: ED Notes Filed: 10/08/2024 05:46 Note Text: Pt aware urine is needed [facility] ED NOTE HNO ID: [id number] Author: JACKIE PIERRE RN Service: ? Author Type: Registered Nurse Type: ED Notes Filed: 10/08/2024 04:18 Note Text: Pt presents to ED from home for complaint of episodes of irregular menstrual bleeding since February and a general feeling of weakness x 2 days. Pt has had several ultrasounds done and has been dx's with uterine fibroids. Pt's CONCRETE CURER [employer]S ADMINISTRATOR/CNM was last seen in June (Shahnaz Rush). [...] up, bed in locked and low position [facility] ED PROV NOTEon 10-08-2024 ED PROV NOTE HNO ID: [id number] Author: ANTHONY TINOCO PA-C Service: ? Author Type: Physician Utility Engineer Type: ED Provider Notes Filed: 10/08/2024 17:23 [...] She was started on medication by her CONCRETE CURER to stop the bleeding. Patient states that she has been having spotting on and off for 12 days. Is not filling up more than 1 pad an hour. No associated pain, nausea or vomiting. Patient states she was supposed to see her CONCRETE CURER again for follow-up 2 days ago but [...] Declined pelvic exam. Patient requesting referral for CONCRETE CURER in this area as she recently moved here from [place]. Patient has no pain so do not feel imaging is indicated at this time. This was provided to her as well as appointment request for CONCRETE CURER and PCP. Strict return precautions and close PCP follow-up were discussed. All of her questions were answered. Patient was discharged in stable condition. History and Record Review External record(s) reviewed: prior outpatient record and prior labs/imaging. Findings from review of outpatient records: outpatient OBGYN visit on 07/09/2024 Findings from review of (more content not included)... [facility] POLYSOMNOGRAM (PSG)/HOME SLE EP APNEA TEST (HSAT)on 09-15-2024 POLYSOMNOGRAM (PSG)/HOME SLEEP APNEA TEST (HSAT) [facility] at [address], [address], [place] [address] ; Home Sleep Apnea Test (HSAT) Study Report Name: LALITHA GARCIA Date of Study: 09/15/2024 [facility]#: [id number] Age: 28 (: 1995) ESS: Neck Circ. [...] unattended Type III, minimum of 4 parameters (67271) Procedure: This study was performed using a Type III ambulatory PSG device and was unattended. The patient was instructed on proper use of the device by a registered ct mri technologist. The monitored parameters included heart rate, [...] ICSD DIAGNOSIS: Obstructive Sleep Apnea Syndrome [G47.33] IMPRESSION/RECOMMENDATION S: 1. This study confirms a diagnosis of [...] By: ABILIO MÉNDEZ (09/20/2024 12:45:41 PM) [facility] HNO ID: [id number] Author: FANNY VALIENTE RDMS Service: Radiology Author Type: Toy [employer] Former Supervisor Type: Allied Health Filed: 09/11/2024 10:48 Note [...] PATIENT PRESENTS WITH AN IMPLANTABLE OR ATTACHED REVENUE TAX SPECIALIST: No RADIOLOGY DEPARTMENT: Ultrasound RUQ PERIPHERAL IV DATA: Inpatient: see LDA documentation SIGNED BY: Fanny Valiente RDMS September 11, 2024 10:48 AM [facility] CBC W Auto Differential pane l (Bld)on 09-11-2024 Basophils (Bld) [#/Vol] 0.04 10*3/uL Normal <0.11 [facility] Comment on above: Order Comment: Speci men Type: BLOOD SPECIMEN Ordering Facility: [facility] Address: [address] [place] [address] Performed By: #### 5 7021-8 #### [facility] CLIA [id number] [address] [place] [address] [place] Basophils/100 WBC (Bld) 0.7 % Normal [facility] Comment on above: Order Comment: Speci men Type: BLOOD SPECIMEN Ordering Facility: [facility] Address: [address] [place] [address] Performed By: #### 5 7021-8 #### [facility] CLIA [id number] [address] [place] [address] [place] Differential cell count method Nom (Bld) Auto Normal [facility] Comment on above: Order Comment: Speci men Type: BLOOD SPECIMEN Ordering Facility: [facility] Address: [address] [place] [address] Performed By: #### 5 7021-8 #### [facility] CLIA [id number] [address] [place] [address] [place] Eosinophils (Bld) [#/Vol] 0.19 10*3/uL Normal <0.46 [facility] Comment on above: Order Comment: Speci men Type: BLOOD SPECIMEN Ordering Facility: [facility] Address: [address] [place] [address] Performed By: #### 5 7021-8 #### [facility] CLIA [id number] [address] [place] [address] [place] Eosinophils/100 WBC (Bld) 3.3 % Normal [facility] Comment on above: Order Comment: Speci men Type: BLOOD SPECIMEN Ordering Facility: [facility] Address: [address] [place] [address] Performed By: #### 5 7021-8 #### [facility] CLIA [id number] [address] [place] [address] [place] Erythrocyte distribution width (RBC) [Ratio] 13.5 % Normal 11.5-15.0 [facility] Comment on above: Order Comment: Speci men Type: BLOOD SPECIMEN Ordering Facility: [facility] Address: [address] [place] [address] Performed By: #### 5 7021-8 #### [facility] CLIA [id number] [address] [place] [address] [place] Hematocrit (Bld) [Volume fraction] 42.8 % Normal 36.0-46.0 [facility] Comment on above: Order Comment: Speci men Type: BLOOD SPECIMEN Ordering Facility: [facility] Address: [address] [place] [address] Performed By: #### 5 7021-8 #### [facility] CLIA [id number] [address] [place] [address] [place] Hemoglobin (Bld) [Mass/Vol] 14.1 g/dL Normal 11.5-15.5 [facility] Comment on above: Order Comment: Speci men Type: BLOOD SPECIMEN Ordering Facility: [facility] Address: [address] [place] [address] Performed By: #### 5 7021-8 #### [facility] IA [id number] [address] [place] [address] [place] Immature granulocytes (Bld) [#/Vol] 10*3/uL Normal <0.10 [facility] Comment on above: Order Comment: Speci men Type: BLOOD SPECIMEN Ordering Facility: [facility] Address: [address] [place] [address] Performed By: #### 5 7021-8 #### [facility] IA [id number] [address] [place] [address] [place] Immature granulocytes/100 WBC (Bld) 0.2 % Normal [facility] Comment on above: Order Comment: Speci men Type: BLOOD SPECIMEN Ordering Facility: [facility] Address: [address] [place] [address] Performed By: #### 5 7021-8 #### [facility] CLIA [id number] [address] [place] [address] [place] Lymphocytes (Bld) [#/Vol] 2.22 10*3/uL Normal 1.00-4.00 [facility] Comment on above: Order Comment: Speci men Type: BLOOD SPECIMEN Ordering Facility: [facility] Address: [address] [place] [address] Performed By: #### 5 7021-8 #### [facility] CLIA [id number] [address] [place] [address] [place] Lymphocytes/100 WBC (Bld) 38.3 % Normal [facility] Comment on above: Order Comment: Speci men Type: BLOOD SPECIMEN Ordering Facility: [facility] Address: [address] [place] [address] Performed By: #### 5 7021-8 #### [facility] CLIA [id number] [address] [place] [address] [place] MCH (RBC) [Entitic mass] 28.9 pg Normal 26.0-34.0 [facility] Comment on above: Order Comment: Speci men Type: BLOOD SPECIMEN Ordering Facility: [facility] Address: [address] [place] [address] Performed By: #### 5 7021-8 #### [facility] IA [id number] [address] [place] [address] [place] MCHC (RBC) [Mass/Vol] 32.9 g/dL Normal 30.5-36.0 [facility] Comment on above: Order Comment: Speci men Type: BLOOD SPECIMEN Ordering Facility: [facility] Address: [address] [place] [address] Performed By: #### 5 7021-8 #### [facility] CLIA [id number] [address] [place] [address] [place] MCV (RBC) [Entitic vol] 87.7 fL Normal 80.0-100.0 [facility] Comment on above: Order Comment: Speci men Type: BLOOD SPECIMEN Ordering Facility: [facility] Address: [address] [place] [address] Performed By: #### 5 7021-8 #### [facility] CLIA [id number] [address] [place] [address] [place] Monocytes (Bld) [#/Vol] 0.47 10*3/uL Normal <0.87 [facility] Comment on above: Order Comment: Speci men Type: BLOOD SPECIMEN Ordering Facility: [facility] Address: [address] [place] [address] Performed By: #### 5 7021-8 #### [facility] CLIA [id number] [place] [address] [place] Monocytes/100 WBC (Bld) 8.1 % Normal [facility] Comment on above: Order Comment: Speci men Type: BLOOD SPECIMEN Ordering Facility: [facility] Address: [address] [place] [address] Performed By: #### 5 7021-8 #### [facility] CLIA [id number] [address] [place] [address] [place] Neutrophils (Bld) [#/Vol] 2.86 10*3/uL Normal 1.45-7.50 [facility] Comment on above: Order Comment: Speci men Type: BLOOD SPECIMEN Ordering Facility: [facility] Address: [address] [place] [address] Performed By: #### 5 7021-8 #### [facility] CLIA [id number] [address] [place] [address] [place] Neutrophils/100 WBC (Bld) 49.4 % Normal [facility] Comment on above: Order Comment: Speci men Type: BLOOD SPECIMEN Ordering Facility: [facility] Address: [address] [place] [address] Performed By: #### 5 7021-8 #### [facility] CLIA [id number] [place], [place] [id number] [place] Nucleated RBC (Bld) [#/Vol] 10*3/uL Normal <0.01 [facility] Comment on above: Order Comment: Speci men Type: BLOOD SPECIMEN Ordering Facility: [facility] Address: [address] [place] [address] Performed By: #### 5 7021-8 #### [facility] CLIA [id number] [address] [place] [address] [place] Nucleated RBC/100 WBC (Bld) [Ratio] 0.0 /100 WBC Normal [facility] Comment on above: Order Comment: Speci men Type: BLOOD SPECIMEN Ordering Facility: [facility] Address: [address] [place] [address] Performed By: #### 5 7021-8 #### [facility] CLIA [id number] [place] [address] [place] Platelet mean volume (Bld) [Entitic vol] 9.8 fL Normal 9.0-12.7 [facility] Comment on above: Order Comment: Speci men Type: BLOOD SPECIMEN Ordering Facility: [facility] Address: [address] [place] [address] Performed By: #### 5 7021-8 #### [facility] IA [id number] [address] [place] [address] [place] Platelets (Bld) [#/Vol] 266 10*3/uL Normal 150-400 [facility] Comment on above: Order Comment: Speci men Type: BLOOD SPECIMEN Ordering Facility: [facility] Address: [address] [place] [address] Performed By: #### 5 7021-8 #### [facility] IA [id number] [address] [place] [address] [place] RBC (Bld) [#/Vol] 4.88 10*6/uL Normal 3.90-5.20 [facility] Comment on above: Order Comment: Speci men Type: BLOOD SPECIMEN Ordering Facility: [facility] Address: [address] [place] [address] Performed By: #### 5 7021-8 #### [facility] CLIA [id number] [address] [place] [address] [place] WBC (Bld) [#/Vol] 5.79 10*3/uL Normal 3.70-11.00 [facility] Comment on above: Order Comment: Speci men Type: BLOOD SPECIMEN [facility] [employer] Address: [address] [place] [address] Performed By: #### 5 7021-8 #### [facility] CLIA [id number] [address] [place] [address] [place] Comprehensive metabolic 2000 panelon 09-11-2024 Albumin [Mass/Vol] 4.0 g/dL Normal 3.9-4.9 [facility] Comment on above: Order Comment: Speci men Type: BLOOD SPECIMEN Ordering Facility: [facility] Address: [address] [place] [address] Performed By: #### 2 4323-8, [id number], 0-3, #### [facility] [place] [id number] [address] [place] [address] [place] ALP [Catalytic activity/Vol] 71 U/L Normal 34-123 [facility] Comment on above: Order Comment: Speci men Type: BLOOD SPECIMEN Ordering Facility: [facility] Address: [address] [place] [address] Performed By: #### 2 4323-8, [id number], 0-3, #### [facility] [place] [id number] [address] [place] [address] [place] ALT [Catalytic activity/Vol] 20 U/L Normal 7-38 [facility] Comment on above: Order Comment: Speci men Type: BLOOD SPECIMEN Ordering Facility: [facility] Address: [address] [place] [address] Performed By: #### 2 4323-8, [id number], 3040-3, #### [facility] CLIA [id number] [address] [place], [place] [address] [place] Anion gap [Moles/Vol] 8 mmol/L Normal 8-15 [facility] Comment on above: Order Comment: Speci men Type: BLOOD SPECIMEN Ordering Facility: [facility] [employer] Address: [address] [place] [address] Performed By: #### 2 4323-8, [id number], 3040-3, #### [facility] CLIA [id number] [place], [place] [address] [place] AST [Catalytic activity/Vol] 17 U/L Normal 13-35 [facility] Comment on above: Order Comment: Speci men Type: BLOOD SPECIMEN Ordering Facility: [facility] [employer] Address: [address] [place] [address] Performed By: #### 2 4323-8, [id number], 3040-3, #### [facility] CLIA [id number] [place], [place] [address] [place] Bilirubin [Mass/Vol] 0.3 mg/dL Normal 0.2-1.3 [facility] Comment on above: Order Comment: Speci men Type: BLOOD SPECIMEN Ordering Facility: [facility] [employer] Address: [address] [place] [address] Performed By: #### 2 4323-8, [id number], 3040-3, #### [facility] CLIA [id number] [address] [place], [place] [address] [place] Calcium [Mass/Vol] 9.0 mg/dL Normal 8.5-10.2 [facility] Comment on above: Order Comment: Speci men Type: BLOOD SPECIMEN Ordering Facility: [facility] [employer] Address: [address] [place] [address] Performed By: #### 2 4323-8, [id number], 3040-3, #### [facility] CLIA [id number] [place], [place] [address] [place] Chloride [Moles/Vol] 105 mmol/L Normal 98-107 [facility] Comment on above: Order Comment: Speci men Type: BLOOD SPECIMEN Ordering Facility: [facility] [employer] Address: [address] [place] [address] Performed By: #### 2 4323-8, [id number], 3040-3, #### [facility] CLIA [id number] [address] [place] [address] [place] CO2 [Moles/Vol] 25 mmol/L Normal 22-30 [facility] Comment on above: Order Comment: Speci men Type: BLOOD SPECIMEN Ordering Facility: [facility] [employer] Address: [address] [place] [address] Performed By: #### 2 4323-8, [id number], 0-3, #### [facility] CLIA [id number] [place], [place] [address] [place] Creatinine [Mass/Vol] 0.62 mg/dL Normal 0.58-0.96 [facility] Comment on above: Order Comment: Speci men Type: BLOOD SPECIMEN Ordering Facility: [facility] [employer] Address: [address] [place] [address] Performed By: #### 2 4323-8, [id number], 3, #### [facility] [place] [id number] [address] [place] [address] [place] Creatinine and Glomerular filtration rate.predicted panel (S/P/Bld) 125 mL/min/1.73m??? Normal >=60 [facility] Comment on above: Order Comment: Speci men Type: BLOOD SPECIMEN Ordering Facility: [facility] Address: [address] [place] [address] Result Comment: Donna mated Glomerular Filtration Rate [...] actual GFR. Performed By: #### 2 4323-8, [id number], 0-3, #### [facility] CLIA [id number] [address] [place] [id number] [place] Glucose [Mass/Vol] 106 mg/dL High 74-99 [facility] Comment on above: Order Comment: Paulino lara Type: BLOOD SPECIMEN Ordering Facility: [facility] [employer] Address: [address] [place] [address] Result Comment: The [place] Diabetes Association (ADA) provides guidance for cutoff [...] Standards of Medical Care in Diabetes 2016, [place] Diabetes Association. Diabetes Care. 2016.39(Suppl 1). Performed By: #### 2 4323-8, [id number], 3040-3, #### [facility] CLIA [id number] [address] [place] [address] [place] Potassium [Moles/Vol] 4.0 mmol/L Normal 3.7-5.1 [facility] Comment on above: Order Comment: Paulino lara Type: BLOOD SPECIMEN Ordering Facility: [facility] [employer] Address: [address] [place] [address] Performed By: #### 2 4323-8, [id number], 3040-3, #### [facility] CLIA [id number] [address] [place], [place] [address] [place] Protein [Mass/Vol] 6.5 g/dL Normal 6.3-8.0 [facility] Comment on above: Order Comment: Paulino lara Type: BLOOD SPECIMEN Ordering Facility: [facility] [employer] Address: [address] [place], [place] [address] Performed By: #### 2 4323-8, [id number], 3040-3, #### [facility] CLIA [id number] [address] [place] [address] [place] Sodium [Moles/Vol] 138 mmol/L Normal 136-144 [facility] Comment on above: Order Comment: Speci men Type: BLOOD SPECIMEN Ordering Facility: [facility] [employer] Address: [address] [place] [address] Performed By: #### 2 4323-8, [id number], 3040-3, 28998-0 #### [facility] CLIA [id number] [address] [place] [address] [place] Urea nitrogen [Mass/Vol] 6 mg/dL Low 7- [facility] Comment on above: Order Comment: Speci men Type: BLOOD SPECIMEN Ordering Facility: [facility] [employer] Address: [address] [place] [address] Performed By: #### 2 4323-8, [id number], 3040-3, #### [facility] CLIA [id number] [place] [address] [place] D dimer FEU PPP-mCncon 09-11 Fibrin D-dimer FEU (PPP) [Mass/Vol] 280 ng/mL FEU Normal <500 [facility] Comment on above: Order Comment: Speci men Type: BLOOD SPECIMEN Ordering Facility: [facility] [employer] Address: [address] [place] [address] Performed By: #### 4 8065-7 #### [facility] CLIA [id number] [place], [place] [address] [place] ED NOTEon 09-11-2024 ED NOTE HNO ID: [id number] Author: STEPHANIE PASTRANA RN Service: ? Author Type: Registered Nurse Type: ED Notes Filed: 09/11/2024 09:04 Note Text: Bed: ED-16 Expected date: Expected time: Means of arrival: Comments: [facility] ED NOTE HNO ID: [id number] Author: ARTI AVERY, TOMMIE Service: Emergency Medicine Author Type: Registered Nurse Type: ED Notes Filed: 09/11/2024 09:05 Note Text: Pt c/o pain soreness under r breast that started today. No sob noted [facility] ED PROV NOTEon 09-11-2024 ED PROV NOTE HNO ID: [id number] Author: EMIR STATON PA-C Service: Emergency Medicine Author Type: Physician Utility Engineer Type: ED Provider Notes Filed: 09/11/2024 11:49 [...] >96.5% and a specificity of >38.8%. Reference: Analiahidominique M, et al. YOLANDA 2014 311:1117 and Van Melia N, et al. Faby Int Med 2016 165:253. HIGH SENSITIVIT (more content not included)... [facility] EKGon 09-11-2024 Electrocardiogram Ventricular Rate : 8 6 BPM Atrial Rate : 87 BPM P-R Interval : 162 ms QRS Duration : 95 ms Q-T Interval : 378 ms QTC Calculation(Bazett) : 453 ms Calculated P Win[place] : 62 degrees Calculated R [place] : 89 degrees Calculated T Win[place] : 34 degrees Sinus rhythm Normal ECG no stemi 1009 Confirmed by NATAN BENTON MD ([id number]) on 09/11/2024 10:12:16 AM NAME : LALITHA GARCIA PID : [id number] : 1995 Gender : Female Race : Other ORD : Procedure Date : Sep 11 2024 09:35:02 Edit Date : Sep 11 2024 10:12:22 Diagnosis: Sinus rhythm Normal ECG no stemi 1009 Confirmed by NATAN BENTON MD ([id number]) on 09/11/2024 10:12:16 AM Test Reason : Location : 18 : [place] [address] Overread By : NATAN BENTON MD Edited By : NATAN BENTON MD Referred By : , Acquired by : , [facility] HIGH SENSITIVITY TROPONIN T (INITIAL)on 09-11-2024 Troponin T.cardiac High sensitivity method [Mass/Vol] <6 Normal <12 [facility] Comment on above: Order Comment: Speci men Type: BLOOD SPECIMENOrdering Facility: [facility] Address: [place] [address] Performed By: #### 2 4323-8, [id number], 3040-3, 99125-8 ####[facility] [id number] [place] [address] [place] HIGH SENSITIVITY TROPONIN T (SECOND)on 09-11-2024 Troponin T.cardiac High sensitivity method [Mass/Vol] <6 Normal <12 [facility] Comment on above: Order Comment: Specvirginia men Type: BLOOD SPECIMEN Ordering Facility: [facility] [employer] Address: [address] [place] [address] Performed By: #### L [id number] #### [facility] CLIA [id number] [address] [place] [id number] [place] Lipase SerPl-cCncon 09-12-19 25 Lipase [Catalytic activity/Vol] 33 U/L Normal 16-61 [facility] Comment on above: Order Comment: Speci men Type: BLOOD SPECIMENOrdering Facility: [facility] Address: [address] [place] [address] Performed By: #### 2 4323-8, [id number], 3040-3, 71833-3 ####[facility] [id number] [place] [id number] [facility] Magnesium SerPl-mCncon 09-11 Magnesium [Mass/Vol] 1.7 mg/dL Normal 1.7-2.3 [facility] Comment on above: Order Comment: Speci marco Type: BLOOD SPECIMENOrdering Facility: [facility] [employer] Address: [address] [place] [address] Performed By: #### 2 4323-8, [id number], 3040-3, 31331-3 ####[facility] [id number] [place] [id number] [place] US ABD RIGHT [...] sonographic appearance of the right upper quadrant. Cable Installation Manager: [facility] Transcribe Date/Time: Sep 11 2024 10:56A Dictated by : SHIKHA SMALL MD This examination was interpreted and the report reviewed and electronically signed by: SHIKHA SMALL MD on Sep 11 2024 10:57AM EST [id number] [facility] XR CHEST 1V FRONTAL PORTon [...] interstitial markings bilaterally. No focal lung consolidation. Cable Installation Manager: [facility] Transcribe Date/Time: Sep 11 2024 9:55A Dictated by : MAYCO GARCIA MD This examination was interpreted and the report reviewed and electronically signed by: MAYCO GARCIA MD on Sep 11 2024 9:57AM EST [id number] [facility] ED NOTEon 09-09-2024 ED NOTE HNO ID: [id number] Author: BLAS TAO RN Service: ? Author Type: Registered Nurse Type: ED Notes Filed: 09/09/2024 22:49 Note Text: Patient discharged. Discharge paperwork reviewed. Patient verbalized understanding. No issues or concerns verbalized. [facility] ED NOTE HNO ID: [id number] Author: KERA CROWDER RN Service: ? Author Type: Registered Nurse Type: ED Notes Filed: 09/09/2024 20:01 Note Text: Pt presents to the ED for an ongoing migraine that has been present the last two weeks. Pt took both advil and extra strength tylenol with no relief. Pt does have family history of migraines. [facility] ED PROV NOTEon 09-09-2024 ED PROV NOTE HNO ID: [id number] Author: BRIT PAUL DO Service: Emergency Medicine [...] No visual field (more content not included)... [facility] ED NOTEon 07-20-2024 ED NOTE HNO ID: [id number] Author: JENARO FIORE, TOMMIE Service: Emergency Medicine Author Type: Registered Nurse Type: ED Notes Filed: 07/20/2024 18:58 Note Text: ..Patient was given a disposition of Eloped Lab Studies There are no in process or resulted labs at this time Radiology Studies There are no in process or resulted radiology studies at this time [facility] ED NOTE HNO ID: [id number] Author: AVERY GOVEA RN Service: ? Author Type: Registered Nurse Type: ED Notes Filed: 07/20/2024 16:20 Note Text: Called twice, no answer in lobby. [facility] ED NOTE HNO ID: [id number] Author: SKIP BRAGG, TOMMIE Service: ? Author Type: Registered Nurse Type: ED Notes Filed: 07/20/2024 12:25 Note Text: C/o tremors/vertigo /ringing onset 2 hrs Denies chest pain [facility] ED Triage Noteon 07-20-2024 ED Triage Note HNO ID: [id number] Author: EARLENE CLAUDIO DO Service: Emergency Medicine [...] with assistance from bedside clinician. SIGNATURE: Earlene Claudio, [facility] Insulin SerPl-aCncon 025 Insulin Qn 16.2 uU/mL Normal 2.6-24.9 [facility] Comment on above: Order Comment: Speci men Type: BLOOD SPECIMENOrdering Facility: [facility] Address: [address] [place] [address] Result Comment: Refe rence intervals established for fasting specimens. Performed By: #### 2 0448-7 ####[facility] [id number] [place] [address] [place] Lipid 1995 panelon 5 Cholesterol [Mass/Vol] 181 mg/dL Normal <200 [facility] Comment on above: Order Comment: Speci men Type: BLOOD SPECIMENOrdering Facility: [facility] Address: [address] [place] [address] Result Comment: <200 mg/dL, Desirable 200-239 mg/dL, Borderline high >239 mg/dL, High Performed By: #### 2 4331-1 ####[facility] [id number] [place] [address] [place] [facility] [id number] [place] [address] [place] Cholesterol in HDL [Mass/Vol] 36 mg/dL Low >39 [facility] Comment on above: Order Comment: Speci men Type: BLOOD SPECIMENOrdering Facility: [facility] Address: [address] [place] [address] Result Comment: 40-5 9 mg/dL, Acceptable >59 mg/dL, High: Negative risk factor for coronary heart disease <40 mg/dL, Low: Positive risk factor for coronary heart disease Performed By: #### 2 4331-1 ####[facility] [id number] [address] [id number] [place] [address] [place] Cholesterol in LDL [Mass/Vol] 122 mg/dL High <100 [facility] Comment on above: Order Comment: Paulino marco Type: BLOOD SPECIMENOrdering Facility: [facility] Address: [address] [place] [address] Result Comment: <100 mg/dL, Optimal 100-129 mg/dL, Near optimal/above optimal 130-159 mg/dL, Borderline high 160-189 mg/dL, High >189 mg/dL, Very high Secondary prevention optimal LDL Cholesterol levels are recommended to be < 70 mg/dL Performed By: #### 2 4331-1 ####[facility] [id number] [address] [id number] [place] [address] [place] Cholesterol in LDL/Cholesterol in HDL [Mass ratio] 3.39 {ratio} High <2.54 [facility] Comment on above: Order Comment: Isavirginia lara Type: BLOOD SPECIMENOrdering Facility: [facility] Address: [address] [place] [address] Result Comment: Bo lopez: 1. National Cholesterol Education Program ATP III Guideline At-A-Glance Quick Desk Reference: National Heart, Lung, and Blood [place]. National Institutes of Health. 2001: NIH Publication No. 01-3305. 2. An International Atherosclerosis Society position paper: global recommendations for the management of dyslipidemia: executive summary, Atherosclerosis. 2014: 232(2):410-413. Performed By: #### 2 4331-1 ####[facility] [id number] [address] [id number] [place] [address] [place] Cholesterol in VLDL [Mass/Vol] 23 mg/dL Normal <30 [facility] Comment on above: Order Comment: Speci men Type: BLOOD SPECIMENOrdering Facility: [facility] Address: [address] [place] [address] Performed By: #### 2 4331-1 ####[facility] [id number] [id number] [place] [address] [place] Cholesterol non HDL [Mass/Vol] 145 mg/dL High <130 [facility] Comment on above: Order Comment: Isai men Type: BLOOD SPECIMENOrdering Facility: [facility] Address: [address] [place] [address] Result Comment: <130 mg/dL, Optimal 130-159 mg/dL, Near optimal/above optimal 160-189 mg/dL, Borderline high 190-219 mg/dL, High >219 mg/dL, Very high Secondary prevention optimal non HDL Cholesterol levels are recommended to be <100 mg/dL Performed By: #### 2 4331-1 ####[facility]IA [id number] [address] [id number] [place] [address] [place] Cholesterol.total/Cho lesterol in HDL [Mass ratio] 5.03 {ratio} Normal <5.10 [facility] Comment on above: Order Comment: Speci men Type: BLOOD SPECIMENOrdering Facility: [facility] Address: [address] [place], [place] [address] Performed By: #### 2 4331-1 ####[facility]CLIA [id number] [address] [id number] [place] [address] [place] FASTING TIME 12 hrs Normal [facility] Comment on above: Order Comment: Speci men Type: BLOOD SPECIMENOrdering Facility: [facility] Address: [address] [place] [address] Performed By: #### 2 4331-1 ####[facility]CLIA [id number] [address] [id number] [place] [address] [place] Triglyceride [Mass/Vol] 113 mg/dL Normal <150 [facility] Comment on above: Order Comment: Speci men Type: BLOOD SPECIMENOrdering Facility: [facility] Address: [address] [place] [address] Result Comment: <150 mg/dL, Normal 150-199 mg/dL, Borderline high 200-499 mg/dL, High >499 mg/dL, Very high Performed By: #### 2 4331-1 ####[facility]CLIA [id number] [address] [id number] [place] [address] [place] TESTOSTERONE, FREE AND TOTAL , BY EQUILIBRIUM ULTRAFILTRATION MASS SPECTROMETRYon 07-15-2024 Testosterone [Mass/Vol] 93.7 ng/dL High 10.0-55.0 [facility] Comment on above: Order Comment: Speci men Type: BLOOD SPECIMENOrdering Facility: [facility] Address: [address] [place] [address] Performed By: #### T FTEST ####[facility] LABCLIA [id number] [place] [address] Testosterone Free [Mass/Vol] 2.14 ng/dL High 0.10-0.85 [facility] Comment on above: Order Comment: Speci men Type: BLOOD SPECIMENOrdering Facility: [facility] Address: [address] [place] [address] Performed By: #### T FTEST ####[facility] LABCLIA [id number] [place] [address] Testosterone Free/Testosterone.tot al [Mass fraction] 2.28 % Normal 0.50-2.80 [facility] Comment on above: Order Comment: Speci men Type: BLOOD SPECIMENOrdering Facility: [facility] Address: [address] [place] [address] Performed By: #### T FTEST ####[facility] [id number] [place] [address] [place] Pelvison 07-15-2024 Indication right ovarian cyst [...] Read By: Sarina Mandujano M.D. MATERNAL MEDICINE [facility] Radiology Study observation (narrative) [facility] CNOVon 07-09-2024 CNOV Office Visit (OBGYWM ) ----- LALITHA GARCIA ([id number]) 1995 F Date Time Provider Department 07/09/24 2:00 PM JOSEY RUSH OBGYWM During your visit today, we recorded the following information about you: Blood pressure Weight Height Last Period 128/78 169.2 kg 1.727 m 07/09/24 Josey Rush APRN.PREET 07/13/2024 12:02 PM Signed Lalitha Garcia is [...] taking anything for control. Was seen at [place] but do not have records for US or labs. 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 Metal History Comments: Sexual Activity: Yes; Male Contraception: [...] PELVIC US WHI; Future -Request records from [place] Abnormal uterine bleeding (AUB) Orders: TESTOSTERONE, FREE [...] uterine bleeding (AUB) [N93.9] Order(s):PELVIC US WHI [[id number]] Order #: [id number]: 1 FUTURE TESTOSTERONE, FREE AND TOTAL, BY EQUILIBRIUM ULTRAFILTRATION MASS SPECTROMETRY [SQTFTEST] Order #: [id number] FUTURE LIPID PANEL BASIC [SQLIPB] Order #: [id number] FUTURE INSULIN, TOTAL, SERUM [SQINSULN] Order #: [id number] FUTURE Prescriptions as of 07/13/2024 - metFORMIN [...] for Encounter Date Provider Department Center 07/09/2024 [id number], JOSEYSUZANNE MARIO Jonna [facility] Encounter Status:Closed by JOSEY RUSH on 07/13/24 Normal [facility] HSV 1 AND 2 IgGon 04-30-2024 HSV 1 IgG Normal [facility] Comment on above: Result Comment: RESU LT: REACTIVE Please note reference interval change HSV-1 IgG testing performed using the [employer] Elecsys HSV-1 IgG assay. Performed By: #### L 3400.1610, L100.0100, L509.8000, L3890.6100, L500.4050, L501.9520, L3890.6300, L506.0400, L3890.6005 ####[facility] [id number] [place], [place], [id number] HSV 2 IgG Normal [facility] Comment on above: Result Comment: RESU LT: [...] [employer] HSV-2 IgG assay. Performed at: [address] [id number] Product Assurance Engineer: Moses Reyes PhD, Phone: [phone] Performed By: #### L 3400.1610, L100.0100, L509.8000, L3890.6100, L500.4050, L501.9520, L3890.6300, L506.0400, L3890.6005 ####[facility] [id number] [place], [address] CBC W/Diff, Automatedon 11-0 1-4 Absolute Lymph 2.59 X10 3/uL Normal 0.83-4.51 [facility] Comment on above: Performed By: #### L 3400.1610, L100.0100, L509.8000, L3890.6100, L500.4050, L501.9520, L3890.6300, L506.0400, L3890.6005 #### [facility] [address] [place], [address] Absolute Neut 4.0 X10 3/uL Normal 2.0-7.7 [facility] Comment on above: Performed By: #### L 3400.1610, L100.0100, L509.8000, L3890.6100, L500.4050, L501.9520, L3890.6300, L506.0400, L3890.6005 #### [facility] [address] [place], [address] Basophils/100 WBC (Bld) 0.5 % Normal 0-1 [facility] Comment on above: Performed By: #### L 3400.1610, L100.0100, L509.8000, L3890.6100, L500.4050, L501.9520, L3890.6300, L506.0400, L3890.6005 #### [facility] [address] [place], [address] Eosinophils/100 WBC (Bld) 1.7 % Normal 0-5 [facility] Comment on above: Performed By: #### L 3400.1610, L100.0100, L509.8000, L3890.6100, L500.4050, L501.9520, L3890.6300, L506.0400, L3890.6005 #### [facility] [address] [place], [address] Erythrocyte distribution width (RBC) [Ratio] 12.6 % Normal 11.6-14.6 [facility] Comment on above: Performed By: #### L 3400.1610, L100.0100, L509.8000, L3890.6100, L500.4050, L501.9520, L3890.6300, L506.0400, L3890.6005 #### [facility] [address] [facility] [place], [place], [id number] Hematocrit (Bld) [Volume fraction] 42.6 % Normal 37-47 [facility] Comment on above: Performed By: #### L 3400.1610, L100.0100, L509.8000, L3890.6100, L500.4050, L501.9520, L3890.6300, L506.0400, L3890.6005 #### [facility] [address] [facility]. [place], [place], [id number] Hemoglobin (Bld) [Mass/Vol] 13.6 g/dL Normal 12.0-15.0 [facility] Comment on above: Performed By: #### L 3400.1610, L100.0100, L509.8000, L3890.6100, L500.4050, L501.9520, L3890.6300, L506.0400, L3890.6005 #### [facility] [address] [facility]. [place], [place], [id number] IG% 0.400 Normal 0.0-0.9 [facility] Comment on above: Result Comment: IG% - Immature Granulocytes (promyelocytes, myelocytes and metamyelocytes) > 1% indicates that a LEFT SHIFT is Present. Performed By: #### L 3400.1610, L100.0100, L509.8000, L3890.6100, L500.4050, L501.9520, L3890.6300, L506.0400, L3890.6005 #### [facility] [address] [place], [address] Lymphocytes/100 WBC (Bld) 34.4 % Normal 19-41 [facility] Comment on above: Performed By: #### L 3400.1610, L100.0100, L509.8000, L3890.6100, L500.4050, L501.9520, L3890.6300, L506.0400, L3890.6005 #### [facility] [address] [place], [address] MCH (RBC) [Entitic mass] 28.5 pg Normal 27.0-32.0 [facility] Comment on above: Performed By: #### L 3400.1610, L100.0100, L509.8000, L3890.6100, L500.4050, L501.9520, L3890.6300, L506.0400, L3890.6005 #### [facility] [address] [place], [address] MCHC (RBC) [Mass/Vol] 31.9 g/dL Low 32-36 [facility] Comment on above: Performed By: #### L 3400.1610, L100.0100, L509.8000, L3890.6100, L500.4050, L501.9520, L3890.6300, L506.0400, L3890.6005 #### [facility] [address] [place], [address] MCV (RBC) [Entitic vol] 89.3 fL Normal 81-99 [facility] Comment on above: Performed By: #### L 3400.1610, L100.0100, L509.8000, L3890.6100, L500.4050, L501.9520, L3890.6300, L506.0400, L3890.6005 #### [facility] [address] [place], [address] Monocytes/100 WBC (Bld) 9.4 % Normal 0-10 [facility] Comment on above: Performed By: #### L 3400.1610, L100.0100, L509.8000, L3890.6100, L500.4050, L501.9520, L3890.6300, L506.0400, L3890.6005 #### [facility] [address] [place], [address] Neutrophils/100 WBC (Bld) 53.6 % Normal 47-70 [facility] Comment on above: Performed By: #### L 3400.1610, L100.0100, L509.8000, L3890.6100, L500.4050, L501.9520, L3890.6300, L506.0400, L3890.6005 #### [facility] [address] [place], [place], [phone] ([phone] Nucleated RBC (Bld) [#/Vol] 0 10*3/uL Normal 0-5 [facility] Comment on above: Performed By: #### L 3400.1610, L100.0100, L509.8000, L3890.6100, L500.4050, L501.9520, L3890.6300, L506.0400, L3890.6005 #### [facility] [address] [place], [place], [phone] (601) Platelet mean volume (Bld) [Entitic vol] 9.9 fL Normal 6.2-12.0 [facility] Comment on above: Performed By: #### L 3400.1610, L100.0100, L509.8000, L3890.6100, L500.4050, L501.9520, L3890.6300, L506.0400, L3890.6005 #### [facility] [address] [place], [address] Platelets (Bld) [#/Vol] 323 10*3/uL Normal 150-450 [facility] Comment on above: Performed By: #### L 3400.1610, L100.0100, L509.8000, L3890.6100, L500.4050, L501.9520, L3890.6300, L506.0400, L3890.6005 #### [facility] [address] [place], [place], [phone] RBC (Bld) [#/Vol] 4.77 10*6/uL Normal 4.2-5.4 [facility] Comment on above: Performed By: #### L 3400.1610, L100.0100, L509.8000, L3890.6100, L500.4050, L501.9520, L3890.6300, L506.0400, L3890.6005 #### [facility] [address] [place], [address] RDW SD 41.3 fl Normal 35.1-43.9 [facility] Comment on above: Performed By: #### L 3400.1610, L100.0100, L509.8000, L3890.6100, L500.4050, L501.9520, L3890.6300, L506.0400, L3890.6005 #### [facility] [address] [place], [place], [id number] WBC (Bld) [#/Vol] 7.5 10*3/uL Normal 4.4-11.0 [facility] Comment on above: Performed By: #### L 3400.1610, L100.0100, L509.8000, L3890.6100, L500.4050, L501.9520, L3890.6300, L506.0400, L3890.6005 #### [facility] [address] [place], [place], [id number] Comprehensive Metabolic Prof nyon 04-23-2024 Albumin [Mass/Vol] 3.6 g/dL Normal 3.2-5.0 [facility] Comment on above: Performed By: #### L 3400.1610, L100.0100, L509.8000, L3890.6100, L500.4050, L501.9520, L3890.6300, L506.0400, L3890.6005 #### [facility] [address] [place], [address] Albumin/Globulin [Mass ratio] 1.1 {ratio} Normal 0.9-2.4 [facility] Comment on above: Performed By: #### L 3400.1610, L100.0100, L509.8000, L3890.6100, L500.4050, L501.9520, L3890.6300, L506.0400, L3890.6005 #### [facility] [address] [place], [address] ALK P 70 U/L Normal 45-117 [facility] Comment on above: Performed By: #### L 3400.1610, L100.0100, L509.8000, L3890.6100, L500.4050, L501.9520, L3890.6300, L506.0400, L3890.6005 #### [facility] [address] [place], [address] ALT [Catalytic activity/Vol] 28 U/L Normal 13-56 [facility] Comment on above: Performed By: #### L 3400.1610, L100.0100, L509.8000, L3890.6100, L500.4050, L501.9520, L3890.6300, L506.0400, L3890.6005 #### [facility] [address] [place], [address] AST [Catalytic activity/Vol] 15 U/L Normal 15-37 [facility] Comment on above: Performed By: #### L 3400.1610, L100.0100, L509.8000, L3890.6100, L500.4050, L501.9520, L3890.6300, L506.0400, L3890.6005 #### [facility] [address] [place], [address] Bilirubin [Mass/Vol] 0.20 mg/dL Normal 0.20-1.00 [facility] Comment on above: Result Comment: For patients on eltrombopag therapy, use of Dimension [place] TBIL is not recommended. Performed By: #### L 3400.1610, L100.0100, L509.8000, L3890.6100, L500.4050, L501.9520, L3890.6300, L506.0400, L3890.6005 #### [facility] [address] [place], [address] BUN/CRE 8.2 RATIO Low 10-20 [facility] Comment on above: Performed By: #### L 3400.1610, L100.0100, L509.8000, L3890.6100, L500.4050, L501.9520, L3890.6300, L506.0400, L3890.6005 #### [facility] [address] [place], [address] CA,Total 8.9 mg/dL Normal 8.5-10.1 [facility] Comment on above: Performed By: #### L 3400.1610, L100.0100, L509.8000, L3890.6100, L500.4050, L501.9520, L3890.6300, L506.0400, L3890.6005 #### [facility] [address] [place], [address] Chloride [Moles/Vol] 107 mmol/L Normal 98-107 [facility] Comment on above: Performed By: #### L 3400.1610, L100.0100, L509.8000, L3890.6100, L500.4050, L501.9520, L3890.6300, L506.0400, L3890.6005 #### [facility] [address] [place], [address] CO2 [Moles/Vol] 24.0 mmol/L Normal 21.0-32.0 [facility] Comment on above: Performed By: #### L 3400.1610, L100.0100, L509.8000, L3890.6100, L500.4050, L501.9520, L3890.6300, L506.0400, L3890.6005 #### [facility] [address] [place], [address] Creatinine [Mass/Vol] 0.61 mg/dL Normal 0.55-1.02 [facility] Comment on above: Result Comment: The validity of the calculated GFR GFRAA in patients over 70 years has not been determined. Clinical correlation is essential. Performed By: #### L 3400.1610, L100.0100, L509.8000, L3890.6100, L500.4050, L501.9520, L3890.6300, L506.0400, L3890.6005 #### [facility] [address] [place], [place], [phone] (116) EST GFR - AA 151 mL/min Normal >60 [facility] Comment on above: Result Comment: Afri can Belgian GFR Calc Performed By: #### L 3400.1610, L100.0100, L509.8000, L3890.6100, L500.4050, L501.9520, L3890.6300, L506.0400, L3890.6005 #### [facility] [address] [place], [address] GAP 4 Low 5-15 [facility] Comment on above: Performed By: #### L 3400.1610, L100.0100, L509.8000, L3890.6100, L500.4050, L501.9520, L3890.6300, L506.0400, L3890.6005 #### [facility] [address] [place], [address] GFR/1.73 sq M.predicted among non-blacks MDRD (S/P/Bld) [Vol rate/Area] 125 mL/min/{1.73_m2} Normal >60 [facility] Comment on above: Result Comment: Non- GFR Calc Performed By: #### L 3400.1610, L100.0100, L509.8000, L3890.6100, L500.4050, L501.9520, L3890.6300, L506.0400, L3890.6005 #### [facility] [address] [place], [address] Globulin (S) [Mass/Vol] 3.2 g/dL Normal 2.2-4.2 [facility] Comment on above: Performed By: #### L 3400.1610, L100.0100, L509.8000, L3890.6100, L500.4050, L501.9520, L3890.6300, L506.0400, L3890.6005 #### [facility] [address] [place], [address] Glucose [Mass/Vol] 96 mg/dL Normal 74-106 [facility] Comment on above: Performed By: #### L 3400.1610, L100.0100, L509.8000, L3890.6100, L500.4050, L501.9520, L3890.6300, L506.0400, L3890.6005 #### [facility] [address] [place], [address] Potassium [Moles/Vol] 3.8 mmol/L Normal 3.5-5.1 [facility] Comment on above: Performed By: #### L 3400.1610, L100.0100, L509.8000, L3890.6100, L500.4050, L501.9520, L3890.6300, L506.0400, L3890.6005 #### [facility] [address] [place], [address] Sodium [Moles/Vol] 135 mmol/L Low 136-145 [facility] Comment on above: Performed By: #### L 3400.1610, L100.0100, L509.8000, L3890.6100, L500.4050, L501.9520, L3890.6300, L506.0400, L3890.6005 #### [facility] [address] [place], [place], [phone] (128) T PROT 6.8 g/dL Normal 6.4-8.2 [facility] Comment on above: Performed By: #### L 3400.1610, L100.0100, L509.8000, L3890.6100, L500.4050, L501.9520, L3890.6300, L506.0400, L3890.6005 #### [facility] [address] [place], [place], [address] Urea nitrogen [Mass/Vol] 5 mg/dL Low 7-18 [facility] Comment on above: Performed By: #### L 3400.1610, L100.0100, L509.8000, L3890.6100, L500.4050, L501.9520, L3890.6300, L506.0400, L3890.6005 #### [facility] [address] [place], [address] HIV - WCHon 04-23-2024 HIV Non-Reactive Normal Nonreactive [facility] Comment on above: Order Comment: Reaso n for Exam: vaginal discharge Performed By: #### L 3400.1610, L100.0100, L509.8000, L3890.6100, L500.4050, L501.9520, L3890.6300, L506.0400, L3890.6005 ####[facility] [address] [place], [place], [address] Hepatitis B Surface Antigeno n 04-23-2024 HEP B Surf Ag Non-Reactive Normal Nonreactive [facility] Comment on above: Order Comment: Reaso n for Exam: vaginal discharge Performed By: #### L 3400.1610, L100.0100, L509.8000, L3890.6100, L500.4050, L501.9520, L3890.6300, L506.0400, L3890.6005 ####[facility] [address] [place], [address] Hepatitis C Antibodyon 04-23 Hepatitis C AB Non-Reactive Normal Nonreactive [facility] Comment on above: Order Comment: Reaso n for Exam: vaginal discharge Result Comment: Non Reactive: < 0.8 Equivocal: >/= 0.8 to < 1.0 Reactive: >/= 1.0 The CDC requires that a reactive/equivocal HCV antibody result be sent out for confirmation. HCV Quant by PCR testing. Performed By: #### L 3400.1610, L100.0100, L509.8000, L3890.6100, L500.4050, L501.9520, L3890.6300, L506.0400, L3890.6005 ####[facility] [address] [place], [place], [id number] L509.8000on 04-23-2024 Syphilis Abs Non-Reactive Normal [facility] Comment on above: Order Comment: Reaso n for Exam: vaginal discharge Performed By: #### L 3400.1610, L100.0100, L509.8000, L3890.6100, L500.4050, L501.9520, L3890.6300, L506.0400, L3890.6005 ####[facility] [address] [place], [address] Pelvic w/ Transvaginalon Pelvic w/ Transvaginal [facility] [address] [address] Pelvic w/ Transvaginal MR#: [id number] Acct: [id number] Name: LALITHA GARCIA Rep #: [id number] : 1995 F 28 From: Blue alonso MD PCP: Care Physician,No Primary Status: REG CLI Study: Pelvic w/ Transvaginal Date of Exam: 04/23/24 Exam# [id number] Ordering Dr: Alesha Aguilar CHAIN HOOKER-C [id number] STUDY: ULTRASOUND OF THE FEMALE PELVIS - [...] 8:58 EST Reading Location ID and State: [address] [place] [address] , Service support , CC: JERMAN Aguilar; No Primary Care Physician Cable Installation Manager: Signed Normal [facility] T4 Free Directon 04-23-2024 T4 FREE DIRECT 1.02 ng/dL Normal 0.76-1.46 [facility] Comment on above: Performed By: #### L 3400.1610, L100.0100, L509.8000, L3890.6100, L500.4050, L501.9520, L3890.6300, L506.0400, L3890.6005 #### [facility] [address] [place], [place], [address] Thyroid Stim Hormone (TSH)on 04-23-2024 TSH 0.915 uIU/mL Normal 0.358-3.740 [facility] Comment on above: Performed By: #### L 3400.1610, L100.0100, L509.8000, L3890.6100, L500.4050, L501.9520, L3890.6300, L506.0400, L3890.6005 #### [facility] [place], [address] ED NOTEon 12-27-2023 ED NOTE HNO ID: [id number] Author: TARUN MCDONALD, RN Service: ? Author Type: Registered Nurse [...] Pt ambulatory with steady gait on departure [facility] ED NOTE HNO ID: [id number] Author: NEFTALI KRUEGER, TOMMIE Service: Emergency Medicine Author Type: Registered Nurse Type: ED Notes Filed: 12/27/2023 17:58 Note Text: Pt independently ambulatory to restroom [facility] ED NOTE HNO ID: [id number] Author: RACHANA CHASE RN Service: ? Author Type: Registered Nurse Type: ED Notes Filed: 12/27/2023 17:50 Note Text: Pt in with R upper tooth pain x five days. [facility] ED PROV NOTEon 12-27-2023 ED PROV NOTE HNO ID: [id number] Author: ANTHONY TINOCO PA-C Service: ? Author Type: Physician Utility Engineer Type: ED Provider Notes Filed: 12/27/2023 19:42 [...] 875 mg SIGNATURE: SANGITA Lazaro HADIL 12/27/231941 [facility] XR FOOT MINIMUM 3 VIEWS [facility] 09-23-2022 XR FOOT MINIMUM 3 VIEWS RIGHT [...] Sign Date: 09/23/2022 4:38:35 PM Ordering Provider: ELAINE WILDER [facility] ([place]) Final Surgical Pathology [facility]-2022 Final Surgical Pathology Report . Pathology Reports Accession: Collected Date/Time: Received Date/Time: Pathologist: [id number] 04/04/2022 03:46 EDT 04/04/2022 07:48 EDT AUGUSTINA CAROLINA MD Final Surgical Pathology Report DIAGNOSIS: [...] with no areas of hemorrhage or lesion. Leasing Machine Tender sections in 3 cassettes. Dictated by KENDRA CASTILLO MICROSCOPIC DESCRIPTION: Slides reviewed. Electronically Signed by Pathology Report verified by [facility] AUGUSTINA CAROLINA Sign out Date: 04/09/2022 13:09 Performing Lab: [facility], [address] [place] [address] [facility] Pathology Dept Normal [facility] ([place]) .Auto Diffon 04-06-2022 Basophil, Absolute 0.0 10 3/mcL Normal 0.0-0.3 [facility] ([place]) Comment on above: Performed By: #### Moreno SCHMITT, FMDemetria, CMP, LD #### [address] [address] Basophils/100 WBC (Bld) 0.4 % Normal 0.0-2.5 [facility] ([place]) Comment on above: Performed By: #### Moreno SCHMITT, DANDRE, CMP, LD #### [address] [address] Eosinophil, Absolute 0.3 10 3/mcL Normal 0.0-0.7 [facility] ([place]) Comment on above: Performed By: #### Moreno SCHMITT, FMDemetria, CMP, LD #### [address] [address] Eosinophils/100 WBC (Bld) 4.6 % Normal 0.0-6.0 [facility] ([place]) Comment on above: Performed By: #### Moreno SCHMITT, FMDemetria, CMP, LD #### [address] [address] Lymphocyte, Absolute 1.6 10 3/mcL Normal 0.9-4.3 [facility] ([place]) Comment on above: Performed By: #### G FR, FMH, CMP, LD #### [place] [address] [address] [place] [address] Lymphocytes/100 WBC (Bld) 21.8 % Normal 20.0-40.0 [facility] ([place]) Comment on above: Performed By: #### G FR, FMH, CMP, LD #### [address] [address] Monocyte, Absolute 0.6 10 3/mcL Normal 0.1-1.4 [facility] ([place]) Comment on above: Performed By: #### G FR, FMH, CMP, LD #### [address] [address] Monocytes/100 WBC (Bld) 8.8 % Normal 2.0-13.0 [facility] ([place]) Comment on above: Performed By: #### G FR, FMH, CMP, LD #### [address] [address] Neutrophils/100 WBC (Bld) 64.4 % Normal 50.0-75.0 [facility] ([place]) Comment on above: Performed By: #### G FR, FMH, CMP, LD #### [address] [address] .GFRon 04-06-2022 GFR Non- >60 Normal [facility] ([place]) Comment on above: Result Comment: GFR Population [...] #### G FR, FMH, CMP, LD #### [address] [address] GFR >60 Normal [facility] ([place]) Comment on above: Result Comment: GFR Population [...] #### G FR, FMH, CMP, LD #### [address] [address] .NEUABSon 04-06-2022 Neutrophil, Absolute 4.6 10 3/mcL Normal 2.3-8.1 [facility] ([place]) Comment on above: Performed By: #### G FR, FMH, CMP, LD #### [address] [address] CBCon 04-06-2022 Erythrocyte distribution width (RBC) [Ratio] 13.6 % Normal 11.5-15.5 [facility] ([place]) Comment on above: Performed By: #### G FR, FMH, CMP, LD #### [place] [id number] Hematocrit (Bld) [Volume fraction] 27.7 % Low 34.0-46.0 [facility] ([place]) Comment on above: Performed By: #### G FR, FMH, CMP, LD #### [address] [address] Hgb 9.4 G/dL Low 12.0-16.0 [facility] ([place]) Comment on above: Performed By: #### G FR, FMH, CMP, LD #### [address] [address] MCH (RBC) [Entitic mass] 30.3 pg Normal 27.0-33.0 [facility] ([place]) Comment on above: Performed By: #### G FR, FMH, CMP, LD #### [address] [address] MCHC 34.1 G/dL Normal 32.0-36.0 [facility] ([place]) Comment on above: Performed By: #### G FR, FMH, CMP, LD #### [place] [id number] MCV (RBC) [Entitic vol] 88.9 fL Normal 80.0-99.0 [facility] ([place]) Comment on above: Performed By: #### G FR, FMH, CMP, LD #### [place] [address] Platelet 262 10 3/mcL Normal 150-450 [facility] ([place]) Comment on above: Performed By: #### G FR, FMH, CMP, LD #### [place] [address] Platelet mean volume (Bld) [Entitic vol] 7.4 fL Normal 6.6-10.5 [facility] ([place]) Comment on above: Performed By: #### G FR, FMH, CMP, LD #### [place] [address] RBC 3.11 10 6/mcL Low 4.10-5.30 [facility] ([place]) Comment on above: Performed By: #### G FR, FMH, CMP, LD #### [place] [address] WBC 7.2 10 3/mcL Normal 4.5-10.8 [facility] ([place]) Comment on above: Performed By: #### G FR, FMH, CMP, LD #### [place] [address] CMPon 04-06-2022 Calcium [Mass/Vol] 8.6 mg/dL Low 8.7-10.4 [facility] ([place]) Comment on above: Performed By: #### G FR, FMH, CMP, LD #### [address] [address] Potassium [Moles/Vol] 4.6 mmol/L Normal 3.5-5.0 [facility] ([place]) Comment on above: Performed By: #### G FR, FMH, CMP, LD #### [address] [address] Albumin Level 2.5 G/dL Low 3.2-4.8 [facility] ([place]) Comment on above: Performed By: #### G FR, FMH, CMP, LD #### [address] [address] Albumin/Globulin [Mass ratio] 1.0 {ratio} Normal 0.9-1.6 [facility] ([place]) Comment on above: Performed By: #### G FR, FMH, CMP, LD #### [address] [address] ALP [Catalytic activity/Vol] 82 U/L Normal 38-126 [facility] ([place]) Comment on above: Performed By: #### G FR, FMH, CMP, LD #### [address] [address] ALT [Catalytic activity/Vol] 10 U/L Normal 10-49 [facility] ([place]) Comment on above: Performed By: #### G FR, FMH, CMP, LD #### [address] [address] AST [Catalytic activity/Vol] 15 U/L Normal 8-34 [facility] ([place]) Comment on above: Performed By: #### G FR, FMH, CMP, LD #### [address] [address] Bili Total 0.20 mg/dL Normal 0.20-1.20 [facility] ([place]) Comment on above: Result Comment: Use of this assay is not recommended for patients undergoing treatment with eltrombopag due to the potential for falsely elevated results. Performed By: #### G FR, FMH, CMP, LD #### [place] [id number] BUN/Creatinine Ratio 21.3 ratio Normal 10.0-22.0 [facility] ([place]) Comment on above: Performed By: #### Moreno SCHMITT, DANDRE, CMP, LD #### [address] [address] Chloride [Moles/Vol] 107 mmol/L Normal 98-110 [facility] ([place]) Comment on above: Performed By: #### Moreno SCHMITT, FMDemetria, CMP, LD #### [address] [address] CO2 [Moles/Vol] 26 mmol/L Normal 22-32 [facility] ([place]) Comment on above: Performed By: #### Moreno SCHMITT, DANDRE, CMP, LD #### [address] [address] Creatinine [Mass/Vol] 0.61 mg/dL Normal 0.50-1.20 [facility] ([place]) Comment on above: Performed By: #### DANDRE RENEE, CMP, LD #### [address] [address] Electrolyte Balance 6.0 mEq/L Normal 4.0-15.0 [facility] ([place]) Comment on above: Performed By: #### DANDRE RENEE, CMP, LD #### [address] [address] Globulin 2.6 G/dL Normal 1.5-3.8 [facility] ([place]) Comment on above: Performed By: #### Moreno SCHMITT, DANDRE, CMP, LD #### [address] [address] Glucose [Mass/Vol] 99 mg/dL Normal 70-110 [facility] ([place]) Comment on above: Performed By: #### Moreno SCHMITT, DANDRE, CMP, LD #### [address] [address] Sodium [Moles/Vol] 139 mmol/L Normal 136-145 [facility] ([place]) Comment on above: Performed By: #### Moreno SCHMITT, FMDemetria, CMP, LD #### [address] [address] Total Protein 5.1 G/dL Low 5.7-8.2 [facility] ([place]) Comment on above: Result Comment: No te - New Reference Range in effect 20 Performed By: #### G FR, FMH, CMP, LD #### [address] [address] Urea nitrogen [Mass/Vol] 13.0 mg/dL Normal 8.0-22.0 [facility] ([place]) Comment on above: Performed By: #### G FR, FMH, CMP, LD #### [address] [address] .Auto Diffon 04-05-2022 Basophil, Absolute 0.0 10 3/mcL Normal 0.0-0.3 [facility] ([place]) Comment on above: Performed By: #### G FR, FMH, CMP, LD #### [address] [address] Basophils/100 WBC (Bld) 0.2 % Normal 0.0-2.5 [facility] ([place]) Comment on above: Performed By: #### G FR, FMH, CMP, LD #### [address] [address] Eosinophil, Absolute 0.2 10 3/mcL Normal 0.0-0.7 [facility] ([place]) Comment on above: Performed By: #### G FR, FMH, CMP, LD #### [address] [address] Eosinophils/100 WBC (Bld) 2.6 % Normal 0.0-6.0 [facility] ([place]) Comment on above: Performed By: #### G FR, FMH, CMP, LD #### [address] [address] Lymphocyte, Absolute 1.8 10 3/mcL Normal 0.9-4.3 [facility] ([place]) Comment on above: Performed By: #### G FR, FMH, CMP, LD #### [address] [address] Lymphocytes/100 WBC (Bld) 19.8 % Low 20.0-40.0 [facility] ([place]) Comment on above: Performed By: #### G FR, FMH, CMP, LD #### [address] [address] Monocyte, Absolute 0.6 10 3/mcL Normal 0.1-1.4 [facility] ([place]) Comment on above: Performed By: #### G FR, FMH, CMP, LD #### [address] [address] Monocytes/100 WBC (Bld) 6.0 % Normal 2.0-13.0 [facility] ([place]) Comment on above: Performed By: #### G FR, FMH, CMP, LD #### [address] [address] Neutrophils/100 WBC (Bld) 71.4 % Normal 50.0-75.0 [facility] ([place]) Comment on above: Performed By: #### G FR, FMH, CMP, LD #### [address] [address] .GFRon 04-05-2022 GFR >60 Normal [facility] ([place]) Comment on above: Result Comment: GFR Population [...] #### G FR, FMH, CMP, LD #### [address] [address] GFR Non- >60 Normal [facility] ([place]) Comment on above: Result Comment: GFR Population [...] 15 mL/min/1.73 square meters Performed By: #### Moreno SCHMITT, FMH, CMP, LD #### [address] [address] .NEUABSon 04-05-2022 Neutrophil, Absolute 6.6 10 3/mcL Normal 2.3-8.1 [facility] ([place]) Comment on above: Performed By: #### Moreno SCHMITT, FMH, CMP, LD #### [place] [id number] CBCon 04-05-2022 Erythrocyte distribution width (RBC) [Ratio] 13.5 % Normal 11.5-15.5 [facility] ([place]) Comment on above: Performed By: #### Moreno SCHMITT, FMH, CMP, LD #### [place] [address] Hematocrit (Bld) [Volume fraction] 27.2 % Low 34.0-46.0 [facility] ([place]) Comment on above: Performed By: #### Moreno SCHMITT, FMH, CMP, LD #### [place] [address] Hgb 9.1 G/dL Low 12.0-16.0 [facility] ([place]) Comment on above: Performed By: #### Moreno SCHMITT, FMH, CMP, LD #### [address] [address] MCH (RBC) [Entitic mass] 29.6 pg Normal 27.0-33.0 [facility] ([place]) Comment on above: Performed By: #### Moreno SCHMITT, FMH, CMP, LD #### [address] [address] MCHC 33.5 G/dL Normal 32.0-36.0 [facility] ([place]) Comment on above: Performed By: #### Moreno FR, FMH, CMP, LD #### [address] [address] MCV (RBC) [Entitic vol] 88.4 fL Normal 80.0-99.0 [facility] ([place]) Comment on above: Performed By: #### G FR, FMH, CMP, LD #### [address] [address] Platelet 244 10 3/mcL Normal 150-450 [facility] ([place]) Comment on above: Performed By: #### Moreno FR, FMH, CMP, LD #### [address] [address] Platelet mean volume (Bld) [Entitic vol] 7.5 fL Normal 6.6-10.5 [facility] ([place]) Comment on above: Performed By: #### G FR, FMH, CMP, LD #### [address] [address] RBC 3.07 10 6/mcL Low 4.10-5.30 [facility] ([place]) Comment on above: Performed By: #### G FR, FMH, CMP, LD #### [address] [address] WBC 9.3 10 3/mcL Normal 4.5-10.8 [facility] ([place]) Comment on above: Performed By: #### G FR, FMH, CMP, LD #### [address] [address] CMPon 04-05-2022 Albumin Level 2.3 G/dL Low 3.2-4.8 [facility] ([place]) Comment on above: Performed By: #### G FR, FMH, CMP, LD #### [address] [address] Albumin/Globulin [Mass ratio] 0.9 {ratio} Normal 0.9-1.6 [facility] ([place]) Comment on above: Performed By: #### G FR, FMH, CMP, LD #### [address] [address] ALP [Catalytic activity/Vol] 88 U/L Normal 38-126 [facility] ([place]) Comment on above: Performed By: #### G FR, FMH, CMP, LD #### [address] [address] ALT [Catalytic activity/Vol] 9 U/L Low 10-49 [facility] ([place]) Comment on above: Performed By: #### G FR, FMH, CMP, LD #### [address] [address] AST [Catalytic activity/Vol] 16 U/L Normal 8-34 [facility] ([place]) Comment on above: Performed By: #### G FR, FMH, CMP, LD #### [address] [address] Bili Total 0.20 mg/dL Normal 0.20-1.20 [facility] ([place]) Comment on above: Result Comment: Use of this assay is not recommended for patients undergoing treatment with eltrombopag due to the potential for falsely elevated results. Performed By: #### G FR, FMH, CMP, LD #### [address] [address] BUN/Creatinine Ratio 12.7 ratio Normal 10.0-22.0 [facility] ([place] Comment on above: Performed By: #### G FR, FMH, CMP, LD #### [address] [address] Calcium [Mass/Vol] 7.4 mg/dL Low 8.7-10.4 [facility] ([place]) Comment on above: Performed By: #### G FR, FMH, CMP, LD #### [address] [address] Chloride [Moles/Vol] 112 mmol/L High 98-110 [facility] ([place] Comment on above: Performed By: #### G FR, FMH, CMP, LD #### [address] [address] CO2 [Moles/Vol] 26 mmol/L Normal 22-32 [facility] ([place]) Comment on above: Performed By: #### Moreno SCHMITT, DANDRE, CMP, LD #### [address] [address] Creatinine [Mass/Vol] 0.63 mg/dL Normal 0.50-1.20 [facility] ([place]) Comment on above: Performed By: #### Moreno SCHMITT, DANDRE, CMP, LD #### [address] [address] Electrolyte Balance -1.0 mEq/L Low 4.0-15.0 [facility] ([place]) Comment on above: Performed By: #### Moreno SCHMITT, DANDRE, CMP, LD #### [address] [address] Globulin 2.5 G/dL Normal 1.5-3.8 [facility] ([place]) Comment on above: Performed By: #### Moreno SCHMITT, DANDRE, CMP, LD #### [address] [address] Glucose [Mass/Vol] 124 mg/dL High 70-110 [facility] ([place]) Comment on above: Performed By: #### Moreno SCHMITT, DANDRE, CMP, LD #### [address] [address] Potassium [Moles/Vol] 3.7 mmol/L Normal 3.5-5.0 [facility] ([place]) Comment on above: Performed By: #### Moreno SCHMITT, FMDemetria, CMP, LD #### [address] [address] Sodium [Moles/Vol] 137 mmol/L Normal 136-145 [facility] ([place]) Comment on above: Performed By: #### Moreno SCHMITT, FMDemetria, CMP, LD #### [address] [address] Total Protein 4.8 G/dL Low 5.7-8.2 [facility] ([place]) Comment on above: Result Comment: No te - New Reference Range in effect 20 Performed By: #### G FR, FMH, CMP, LD #### [address] [address] Urea nitrogen [Mass/Vol] 8.0 mg/dL Normal 8.0-22.0 [facility] ([place]) Comment on above: Performed By: #### G , FMH, CMP, LD #### [address] [address] Hon 04-05-2022 Mat. Hemorrhage Negative Normal [facility] ([place]) Comment on above: Performed By: #### G , FMDemetria, CMP, LD #### [address] [address] LDHon 04-05-2022 LDH 216 U/L Normal 120-246 [facility] ([place]) Comment on above: Performed By: #### G , FMH, CMP, LD #### [address] [address] MGon 04-05-2022 Magnesium [Mass/Vol] 4.6 mg/dL High 1.6-2.4 [facility] ([place]) Comment on above: Performed By: #### G , FMH, CMP, LD #### [address] [address] MGon 04-04-2022 Magnesium [Mass/Vol] 4.6 mg/dL High 1.6-2.4 [facility] ([place] Comment on above: Performed By: #### G FR, FMH, CMP, LD #### [address] [address] Magnesium [Mass/Vol] 5.5 mg/dL Critically abnormal 1.6-2.4 [facility] ([place]) Comment on above: Performed By: #### M G #### [address] [address] Magnesium [Mass/Vol] 5.3 mg/dL Critically abnormal 1.6-2.4 [facility] ([place]) Comment on above: Performed By: #### G FR, FMH, CMP, LD #### [address] [address] Magnesium [Mass/Vol] 5.3 mg/dL Critically abnormal 1.6-2.4 [facility] ([place]) Comment on above: Performed By: #### M G #### [address] [address] MGon 04-03-2022 Magnesium [Mass/Vol] 5.4 mg/dL Critically abnormal 1.6-2.4 [facility] ([place]) Comment on above: Performed By: #### M G #### [address] [address] Magnesium [Mass/Vol] 4.7 mg/dL High 1.6-2.4 [facility] ([place]) Comment on above: Performed By: #### M G #### [address] [address] Magnesium [Mass/Vol] 3.8 mg/dL High 1.6-2.4 [facility] ([place] Comment on above: Performed By: #### G , [facility], [place] #### [address] [address] Magnesium [Mass/Vol] 3.2 mg/dL High 1.6-2.4 [facility] ([place] Comment on above: Performed By: #### M G #### [address] [address] RPRon 04-03-2022 Reagin Ab RPR Ql (S) Non-Reactive Normal Non-Reactive [facility] ([place]) Comment on above: Result Comment: The RPR [...] abnormal serum globulins. Performed By: #### G , FM, CMP, LD #### [address] [address] .Auto Diffon 04-02-2022 Basophil, Absolute 0.0 10 3/mcL Normal 0.0-0.3 [facility] ([place] Comment on above: Performed By: #### G FR, FMH, CMP, LD #### [address] [address] Basophils/100 WBC (Bld) 0.5 % Normal 0.0-2.5 [facility] ([place]) Comment on above: Performed By: #### G FR, FMH, CMP, LD #### [address] [address] Eosinophil, Absolute 0.1 10 3/mcL Normal 0.0-0.7 [facility] ([place]) Comment on above: Performed By: #### G FR, FMH, CMP, LD #### [address] [address] Eosinophils/100 WBC (Bld) 2.0 % Normal 0.0-6.0 [facility] ([place]) Comment on above: Performed By: #### G FR, FMH, CMP, LD #### [address] [address] Lymphocyte, Absolute 1.5 10 3/mcL Normal 0.9-4.3 [facility] ([place]) Comment on above: Performed By: #### G FR, FMH, CMP, LD #### [address] [address] Lymphocytes/100 WBC (Bld) 24.9 % Normal 20.0-40.0 [facility] ([place]) Comment on above: Performed By: #### G FR, FMH, CMP, LD #### [address] [address] Monocyte, Absolute 0.5 10 3/mcL Normal 0.1-1.4 [facility] [place] Comment on above: Performed By: #### G FR, FMH, CMP, LD #### [address] [address] Monocytes/100 WBC (Bld) 7.9 % Normal 2.0-13.0 [facility] ([place]) Comment on above: Performed By: #### G FR, FMH, CMP, LD #### [address] [address] Neutrophils/100 WBC (Bld) 64.7 % Normal 50.0-75.0 [facility] ([place]) Comment on above: Performed By: #### G FR, FMH, CMP, LD #### [address] [address] .GFRon 04-02-2022 GFR >60 Normal [facility] [place] Comment on above: Result Comment: GFR Population [...] meters Performed By: #### M G #### [address] [address] GFR Non- >60 Normal [facility] ([place]) Comment on above: Result Comment: GFR Population [...] meters Performed By: #### M G #### [address] [address] .NEUABSon 04-02-2022 Neutrophil, Absolute 4.0 10 3/mcL Normal 2.3-8.1 [facility] ([place]) Comment on above: Performed By: #### G FR, FMH, CMP, LD #### [address] [address] ABIDon 04-02-2022 Antibody ID Passive Anti-D Invalid Interpretation Code [facility] ([place]) Comment on above: Order Comment: Order ed by Discern Expert Performed By: #### G FR, FMH, CMP, LD #### [address] [address] ABO/Rh (Gel)on 04-02-2022 ABO/Rh Interp Negative Invalid Interpretation Code [facility] ([place]) Comment on above: Performed By: #### G FR, FMH, CMP, LD #### [place] [phone] ABS (Gel)on 04-02-2022 ABSC Interp (Gel) Positive Normal [facility] ([place]) Comment on above: Performed By: #### G FR, FMH, CMP, LD #### [address] [address] AUTOCon 04-02-2022 Auto Control Negative Normal [facility] ([place]) Comment on above: Order Comment: Order ed by Discern Expert Performed By: #### G FR, FMH, CMP, LD #### [place] [id number] CBCon 04-02-2022 Erythrocyte distribution width (RBC) [Ratio] 13.2 % Normal 11.5-15.5 [facility] ([place]) Comment on above: Performed By: #### G FR, FMH, CMP, LD #### [place] [phone] Hematocrit (Bld) [Volume fraction] 37.0 % Normal 34.0-46.0 [facility] ([place]) Comment on above: Performed By: #### G FR, FMH, CMP, LD #### [address] [address] Hgb 12.5 G/dL Normal 12.0-16.0 [facility] ([place]) Comment on above: Performed By: #### G FR, FMH, CMP, LD #### [address] [address] MCH (RBC) [Entitic mass] 29.7 pg Normal 27.0-33.0 [facility] ([place]) Comment on above: Performed By: #### G FR, FMH, CMP, LD #### [address] [address] MCHC 33.8 G/dL Normal 32.0-36.0 [facility] ([place]) Comment on above: Performed By: #### G FR, FMH, CMP, LD #### [address] [address] MCV (RBC) [Entitic vol] 88.0 fL Normal 80.0-99.0 [facility] ([place]) Comment on above: Performed By: #### G FR, FMH, CMP, LD #### [address] [address] Platelet 281 10 3/mcL Normal 150-450 [facility] ([place]) Comment on above: Performed By: #### G FR, FMH, CMP, LD #### [address] [address] Platelet mean volume (Bld) [Entitic vol] 7.3 fL Normal 6.6-10.5 [facility] ([place]) Comment on above: Performed By: #### G FR, FMH, CMP, LD #### [address] [address] RBC 4.20 10 6/mcL Normal 4.10-5.30 [facility] ([place]) Comment on above: Performed By: #### G FR, FMH, CMP, LD #### [address] [address] WBC 6.1 10 3/mcL Normal 4.5-10.8 [facility] ([place]) Comment on above: Performed By: #### G FR, FMH, CMP, LD #### [address] [address] CMPon 04-02-2022 BUN/Creatinine Ratio Unable to Calculate Normal 10.0-2 2.0 [facility] ([place]) Comment on above: Result Comment: Unab le to calculate this test result accurately. Results used to calculate this test are outside the reportable range. Performed By: #### M G #### [address] [address] Urea nitrogen [Mass/Vol] mg/dL Low 8.0-22.0 [facility] ([place]) Comment on above: Performed By: #### M G #### [place] [phone] Albumin Level 3.1 G/dL Low 3.2-4.8 [facility] ([place]) Comment on above: Performed By: #### M G #### [place] [phone] Albumin/Globulin [Mass ratio] 1.0 {ratio} Normal 0.9-1.6 [facility] ([place]) Comment on above: Performed By: #### M G #### [address] [address] ALP [Catalytic activity/Vol] 116 U/L Normal 38-126 [facility] ([place]) Comment on above: Performed By: #### M G #### [address] [address] ALT [Catalytic activity/Vol] 12 U/L Normal 10-49 [facility] ([place]) Comment on above: Performed By: #### M G #### [address] [address] AST [Catalytic activity/Vol] 15 U/L Normal 8-34 [facility] ([place]) Comment on above: Performed By: #### M G #### [address] [address] Bili Total 0.40 mg/dL Normal 0.20-1.20 [facility] ([place]) Comment on above: Result Comment: Use of this assay is not recommended for patients undergoing treatment with eltrombopag due to the potential for falsely elevated results. Performed By: #### M G #### [place] [phone] Calcium [Mass/Vol] 9.3 mg/dL Normal 8.7-10.4 [facility] ([place]) Comment on above: Performed By: #### M G #### [place] [phone] Chloride [Moles/Vol] 109 mmol/L Normal 98-110 [facility] [place] Comment on above: Performed By: #### M G #### [place] [phone] CO2 [Moles/Vol] 22 mmol/L Normal 22-32 [facility] ([place]) Comment on above: Performed By: #### M G #### [place] [phone] Creatinine [Mass/Vol] 0.47 mg/dL Low 0.50-1.20 [facility] ([place] Comment on above: Performed By: #### M G #### [address] [address] Electrolyte Balance 8.0 mEq/L Normal 4.0-15.0 [facility] ([place] Comment on above: Performed By: #### M G #### [place] [phone] Globulin 3.2 G/dL Normal 1.5-3.8 [facility] ([place]) Comment on above: Performed By: #### M G #### [place] [phone] Glucose [Mass/Vol] 90 mg/dL Normal 70-110 [facility] ([place] Comment on above: Performed By: #### M G #### [place] [phone] Potassium [Moles/Vol] 3.9 mmol/L Normal 3.5-5.0 [facility] ([place]) Comment on above: Performed By: #### M G #### [address] [address] Sodium [Moles/Vol] 139 mmol/L Normal 136-145 [facility] ([place] Comment on above: Performed By: #### M G #### [address] [address] Total Protein 6.3 G/dL Normal 5.7-8.2 [facility] ([place]) Comment on above: Result Comment: No te - New Reference Range in effect 20 Performed By: #### M G #### [address] [address] LDHon 04-02-2022 LDH 175 U/L Normal 120-246 [facility] ([place]) Comment on above: Performed By: #### M Moreno #### [address] [address] RPCURon 04-02-2022 U Creatinine 108.1 mg/dL Normal [facility] ([place]) Comment on above: Performed By: #### Moreno SCHMITT, DANDRE, [place], [place] #### [address] [address] U Protein 26.0 mg/dL Normal [facility] ([place]) Comment on above: Performed By: #### DANDRE RENEE, ISABELLA, [place] #### [address] [address] U Ratio Prot/Creat 0.2 ratio Normal [facility] ([place]) Comment on above: Result Comment: resu lt calculated by rule [id number] (U Protein/U Creatinine) Performed By: #### Moreno SCHMITT, DANDRE, CMP, LD #### [address] [address] UAon 04-02-2022 Color (U) Yellow Normal [facility] ([place]) Comment on above: Performed By: #### Moreno SCHMITT, DANDRE, CMP, LD #### [address] [address] Glucose (U) [Mass/Vol] Negative Normal Negative [facility] ([place]) Comment on above: Performed By: #### Moreno SCHMITT, DANDRE, [place]ABELLA, [place] #### [address] [address] Ketones Ql (U) 80 mg/dL Abnormal Neg-Trace [facility] ([place]) Comment on above: Performed By: #### G FR, FMH, CMP, LD #### [address] [address] UA Appear Clear Normal Clear [facility] ([place]) Comment on above: Performed By: #### G FR, FMH, CMP, LD #### [address] [address] UA Blood Negative Normal Neg-Trace [facility] ([place]) Comment on above: Performed By: #### G FR, FMH, CMP, LD #### [address] [address] UA Leuk Est Trace Normal Negative [facility] ([place]) Comment on above: Performed By: #### G FR, FMH, CMP, LD #### [address] [address] UA Nitrite Negative Normal Negative [facility] ([place]) Comment on above: Performed By: #### G FR, FMH, CMP, LD #### [address] [address] UA pH 6.0 Normal 5.0 - 8.0 [facility] ([place]) Comment on above: Performed By: #### G FR, FMH, CMP, LD #### [address] [address] UA Protein Negative Normal Negative [facility] ([place]) Comment on above: Performed By: #### G FR, FMH, CMP, LD #### [address] [address] UA Spec Grav 1.015 Normal 1.006-1.029 [facility] ([place]) Comment on above: Performed By: #### G FR, FMH, CMP, LD #### [address] [address] UA Specimen Type Clean Catch Normal [facility] ([place]) Comment on above: Performed By: #### G FR, FMH, CMP, LD #### [address] [address] UA Urobilinogen 0.2 E.U./dL Normal 0.2-1.0 [facility] ([place]) Comment on above: Performed By: #### G FR, FMH, CMP, LD #### [address] [address] Urobilinogen (U) [Mass/Vol] Negative Normal Neg-Trace [facility] ([place]) Comment on above: Performed By: #### G FR, FMH, CMP, LD #### [address] [address] .Auto Diffon 03-28-2022 Basophil, Absolute 0.1 10 3/mcL Normal 0.0-0.3 [facility] ([place] Comment on above: Performed By: #### G FR, FMH, CMP, LD #### [address] [address] Basophils/100 WBC (Bld) 0.8 % Normal 0.0-2.5 [facility] ([place]) Comment on above: Performed By: #### G FR, FMH, CMP, LD #### [address] [address] Eosinophil, Absolute 0.2 10 3/mcL Normal 0.0-0.7 [facility] ([place]) Comment on above: Performed By: #### G FR, FMH, CMP, LD #### [address] [address] Eosinophils/100 WBC (Bld) 2.4 % Normal 0.0-6.0 [facility] ([place]) Comment on above: Performed By: #### G FR, FMH, CMP, LD #### [address] [address] Lymphocyte, Absolute 1.6 10 3/mcL Normal 0.9-4.3 [facility] ([place]) Comment on above: Performed By: #### G FR, FMH, CMP, LD #### [address] [address] Lymphocytes/100 WBC (Bld) 20.2 % Normal 20.0-40.0 [facility] ([place]) Comment on above: Performed By: #### G FR, FMH, CMP, LD #### [address] [address] Monocyte, Absolute 0.8 10 3/mcL Normal 0.1-1.4 [facility] [place] Comment on above: Performed By: #### G FR, FMH, CMP, LD #### [address] [address] Monocytes/100 WBC (Bld) 10.3 % Normal 2.0-13.0 [facility] ([place]) Comment on above: Performed By: #### G FR, FMH, CMP, LD #### [address] [address] Neutrophils/100 WBC (Bld) 66.3 % Normal 50.0-75.0 [facility] ([place]) Comment on above: Performed By: #### G FR, FMH, CMP, LD #### [address] [address] .GFRon 03-28-2022 GFR >60 Normal [facility] ([place] Comment on above: Result Comment: GFR Population [...] #### G FR, FMH, CMP, LD #### [address] [address] GFR Non- >60 Normal [facility] ([place]) Comment on above: Result Comment: GFR Population [...] 15 mL/min/1.73 square meters Performed By: #### DANDRE RENEE, [place], [place] #### [address] [address] .NEUABSon 03-28-2022 Neutrophil, Absolute 5.4 10 3/mcL Normal 2.3-8.1 [facility] ([place]) Comment on above: Performed By: #### DANDRE RENEE CMP, LD #### [address] [address] ABIDon 03-28-2022 Antibody ID Passive Anti-D Invalid Interpretation Code [facility] ([place]) Comment on above: Order Comment: Order ed by Discern Expert Performed By: #### DANDRE RENEE, [place], [place] #### [address] [address] ABO/Rh (Gel)on 03-28-2022 ABO/Rh Interp Negative Invalid Interpretation Code [facility] ([place]) Comment on above: Performed By: #### DANDRE RENEE, [place]ABELL[place], [place] #### [address] [address] ABS (Gel)on 03-28-2022 ABSC Interp (Gel) Positive Normal [facility] ([place]) Comment on above: Performed By: #### DANDRE RENEE, ISABELL[place], [place] #### [address] [address] AUTOCon 03-28-2022 Auto Control Negative Normal [facility] ([place]) Comment on above: Order Comment: Order ed by Discern Expert Performed By: #### G FR, FMH, CMP, LD #### [address] [address] CBCon 03-28-2022 Erythrocyte distribution width (RBC) [Ratio] 13.2 % Normal 11.5-15.5 [facility] ([place]) Comment on above: Performed By: #### G FR, FMH, CMP, LD #### [place] [phone] Hematocrit (Bld) [Volume fraction] 36.6 % Normal 34.0-46.0 [facility] ([place]) Comment on above: Performed By: #### G FR, FMH, CMP, LD #### [place] [phone] Hgb 12.4 G/dL Normal 12.0-16.0 [facility] ([place]) Comment on above: Performed By: #### G FR, FMH, CMP, LD #### [place] [phone] MCH (RBC) [Entitic mass] 29.9 pg Normal 27.0-33.0 [facility] ([place]) Comment on above: Performed By: #### G FR, FMH, CMP, LD #### [place] [address] MCHC 33.8 G/dL Normal 32.0-36.0 [facility] ([place]) Comment on above: Performed By: #### G FR, FMH, CMP, LD #### [place] [address] MCV (RBC) [Entitic vol] 88.7 fL Normal 80.0-99.0 [facility] ([place]) Comment on above: Performed By: #### G FR, FMH, CMP, LD #### [place] [phone] Platelet 319 10 3/mcL Normal 150-450 [facility] ([place]) Comment on above: Performed By: #### G FR, FMH, CMP, LD #### [place] [address] Platelet mean volume (Bld) [Entitic vol] 7.3 fL Normal 6.6-10.5 [facility] ([place]) Comment on above: Performed By: #### G FR, FMH, CMP, LD #### [address] [address] RBC 4.13 10 6/mcL Normal 4.10-5.30 [facility] ([place]) Comment on above: Performed By: #### G FR, FMH, CMP, LD #### [address] [address] WBC 8.1 10 3/mcL Normal 4.5-10.8 [facility] ([place]) Comment on above: Performed By: #### G , FMH, CMP, LD #### [address] [address] CMPon 03-28-2022 Albumin Level 3.1 G/dL Low 3.2-4.8 [facility] ([place]) Comment on above: Performed By: #### Moreno FR, FMH, CMP, LD #### [place] [address] Albumin/Globulin [Mass ratio] 1.0 {ratio} Normal 0.9-1.6 [facility] ([place]) Comment on above: Performed By: #### G FR, FMH, CMP, LD #### [address] [address] ALP [Catalytic activity/Vol] 111 U/L Normal 38-126 [facility] ([place]) Comment on above: Performed By: #### G FR, FMH, CMP, LD #### [address] [address] ALT [Catalytic activity/Vol] 15 U/L Normal 10-49 [facility] ([place]) Comment on above: Performed By: #### G FR, FMH, CMP, LD #### [place] [phone] AST [Catalytic activity/Vol] 21 U/L Normal 8-34 [facility] ([place]) Comment on above: Performed By: #### G FR, FMH, CMP, LD #### [address] [address] Bili Total 0.30 mg/dL Normal 0.20-1.20 [facility] ([place]) Comment on above: Result Comment: Use of this assay is not recommended for patients undergoing treatment with eltrombopag due to the potential for falsely elevated results. Performed By: #### G FR, FMH, CMP, LD #### [place] [phone] BUN/Creatinine Ratio 14.3 ratio Normal 10.0-22.0 [facility] [place] Comment on above: Performed By: #### G FR, FMH, CMP, LD #### [place] [phone] Calcium [Mass/Vol] 9.5 mg/dL Normal 8.7-10.4 [facility] ([place] Comment on above: Performed By: #### G FR, FMH, CMP, LD #### [place] [phone] Chloride [Moles/Vol] 110 mmol/L Normal 98-110 [facility] [place] Comment on above: Performed By: #### G FR, FMH, CMP, LD #### [place] [phone] CO2 [Moles/Vol] 23 mmol/L Normal 22-32 [facility] ([place]) Comment on above: Performed By: #### G FR, FMH, CMP, LD #### [place] [phone] Creatinine [Mass/Vol] 0.42 mg/dL Low 0.50-1.20 [facility] ([place] Comment on above: Performed By: #### G FR, FMH, CMP, LD #### [place] [phone] Electrolyte Balance 5.0 mEq/L Normal 4.0-15.0 [facility] ([place]) Comment on above: Performed By: #### G FR, FMH, CMP, LD #### [place] [id number] Globulin 3.1 G/dL Normal 1.5-3.8 [facility] ([place]) Comment on above: Performed By: #### oMreno SCHMITT, FMDemetria, CMP, LD #### [address] [id number] Glucose [Mass/Vol] 97 mg/dL Normal 70-110 [facility] ([place]) Comment on above: Performed By: #### Moreno SCHMITT, FMH, CMP, LD #### [address] [address] Potassium [Moles/Vol] 4.4 mmol/L Normal 3.5-5.0 [facility] ([place]) Comment on above: Result Comment: Spec imen slightly hemolyzed. Performed By: #### Moreno SCHMITT, FMDemetria, CMP, LD #### [address] [address] Sodium [Moles/Vol] 138 mmol/L Normal 136-145 [facility] ([place]) Comment on above: Performed By: #### Moreno SCHMITT, FMDemetria, CMP, LD #### [address] [address] Total Protein 6.2 G/dL Normal 5.7-8.2 [facility] ([place]) Comment on above: Result Comment: No te - New Reference Range in effect 20 Performed By: #### Moreno SCHMITT, FMH, CMP, LD #### [address] [address] Urea nitrogen [Mass/Vol] 6.0 mg/dL Low 8.0-22.0 [facility] ([place]) Comment on above: Performed By: #### G , FMH, CMP, LD #### [address] [address] LDHon 03-28-2022 LDH 247 U/L High 120-246 [facility] ([place]) Comment on above: Performed By: #### G , FMH, CMP, LD #### [address] [address] RPCURon 03-28-2022 U Creatinine 48.5 mg/dL Normal [facility] ([place]) Comment on above: Performed By: #### G FR, FMH, CMP, LD #### [facility] [address] [place] [address] U Protein 10.3 mg/dL Normal [facility] ([place]) Comment on above: Performed By: #### G FR, FMH, CMP, LD #### [facility] [address] [place] [address] U Ratio Prot/Creat 0.2 ratio Normal [facility] ([place]) Comment on above: Result Comment: resu lt calculated by rule GL_UR_PROT_NOTCALC_OLD (U Protein/U Creatinine) Performed By: #### G , FMH, CMP, LD #### [place] [id number] [place] [address] UAon 03-28-2022 Color (U) Yellow Normal [facility] ([place]) Comment on above: Performed By: #### G FR, FMH, CMP, LD #### [address] [address] Glucose (U) [Mass/Vol] Negative Normal Negative [facility] ([place]) Comment on above: Performed By: #### G FR, FMH, CMP, LD #### [address] [address] Ketones Ql (U) Negative Normal Neg-Trace [facility] ([place]) Comment on above: Performed By: #### G FR, FMH, CMP, LD #### [address] [address] UA Appear Hazy Abnormal Clear [facility] ([place]) Comment on above: Performed By: #### G FR, FMH, CMP, LD #### [facility] [address] [place] [address] UA Blood Negative Normal Neg-Trace [facility] ([place]) Comment on above: Performed By: #### G FR, FMH, CMP, LD #### [facility] [address] [place] [address] UA Leuk Est Moderate Abnormal Negative [facility] ([place]) Comment on above: Performed By: #### G FR, FMH, CMP, LD #### [address] [address] UA Nitrite Negative Normal Negative [facility] ([place]) Comment on above: Performed By: #### G FR, FMH, CMP, LD #### [address] [address] UA pH 7.0 Normal 5.0 - 8.0 [facility] ([place]) Comment on above: Performed By: #### G FR, FMH, CMP, LD #### [address] [address] UA Protein Negative Normal Negative [facility] ([place]) Comment on above: Performed By: #### G FR, FMH, CMP, LD #### [address] [address] UA Spec Grav 1.010 Normal 1.006-1.029 [facility] ([place]) Comment on above: Performed By: #### G FR, FMH, CMP, LD #### [place] [address] UA Specimen Type Clean Catch Normal [facility] ([place]) Comment on above: Performed By: #### G FR, FMH, CMP, LD #### [address] [address] UA Urobilinogen 0.2 E.U./dL Normal 0.2-1.0 [facility] ([place]) Comment on above: Performed By: #### G FR, FMH, CMP, LD #### [place] [address] Urobilinogen (U) [Mass/Vol] Negative Normal Neg-Trace [facility] ([place]) Comment on above: Performed By: #### G FR, FMH, CMP, LD #### [address] [address] UAMICon 03-28-2022 UA Amorphus Trace Normal [facility] ([place]) Comment on above: Performed By: #### G FR, FMH, CMP, LD #### [place] [phone] UA Bacteria Trace Abnormal Negative [facility] ([place]) Comment on above: Performed By: #### G FR, FMH, CMP, LD #### [address] [address] UA RBC Negative Normal 0-2 [facility] ([place]) Comment on above: Performed By: #### G FR, FMH, CMP, LD #### [address] [address] UA Squam Epithelial 0-2 Normal 0-20 [facility] ([place]) Comment on above: Performed By: #### G FR, FMH, CMP, LD #### [address] [address] UA WBC 0-2 Normal 0-5 [facility] ([place]) Comment on above: Performed By: #### G FR, FMH, CMP, LD #### [address] [address] .Auto Diffon 03-19-2022 Basophil, Absolute 0.1 10 3/mcL Normal 0.0-0.3 [facility] ([place]) Comment on above: Performed By: #### M G #### [address] [address] Basophils/100 WBC (Bld) 0.7 % Normal 0.0-2.5 [facility] ([place]) Comment on above: Performed By: #### M G #### [address] [address] Eosinophil, Absolute 0.3 10 3/mcL Normal 0.0-0.7 [facility] ([place]) Comment on above: Performed By: #### M G #### [address] [address] Eosinophils/100 WBC (Bld) 2.6 % Normal 0.0-6.0 [facility] ([place]) Comment on above: Performed By: #### M G #### [address] [address] Lymphocyte, Absolute 2.0 10 3/mcL Normal 0.9-4.3 [facility] ([place]) Comment on above: Performed By: #### M G #### [address] [address] Lymphocytes/100 WBC (Bld) 18.0 % Low 20.0-40.0 [facility] ([place]) Comment on above: Performed By: #### M G #### [address] [address] Monocyte, Absolute 0.8 10 3/mcL Normal 0.1-1.4 [facility] ([place]) Comment on above: Performed By: #### M G #### [address] [address] Monocytes/100 WBC (Bld) 7.7 % Normal 2.0-13.0 [facility] ([place]) Comment on above: Performed By: #### M G #### [address] [address] Neutrophils/100 WBC (Bld) 71.0 % Normal 50.0-75.0 [facility] ([place]) Comment on above: Performed By: #### M G #### [address] [address] .GFRon 03-19-2022 GFR Non- >60 Normal [facility] ([place]) Comment on above: Result Comment: GFR Population [...] #### G FR, FMH, CMP, LD #### [address] [address] GFR >60 Normal [facility] ([place]) Comment on above: Result Comment: GFR Population [...] #### G FR, FMH, CMP, LD #### [address] [address] .NEUABSon 03-19-2022 Neutrophil, Absolute 7.7 10 3/mcL Normal 2.3-8.1 [facility] ([place]) Comment on above: Performed By: #### Tatum G #### [place] [id number] CBCon 03-19-2022 Erythrocyte distribution width (RBC) [Ratio] 13.6 % Normal 11.5-15.5 [facility] ([place]) Comment on above: Performed By: #### Tatum G #### [place] [phone] Hematocrit (Bld) [Volume fraction] 33.4 % Low 34.0-46.0 [facility] ([place]) Comment on above: Performed By: #### Tatum G #### [place] [phone] Hgb 11.3 G/dL Low 12.0-16.0 [facility] ([place]) Comment on above: Performed By: #### M G #### [address] [address] MCH (RBC) [Entitic mass] 30.0 pg Normal 27.0-33.0 [facility] ([place]) Comment on above: Performed By: #### M G #### [place] [phone] MCHC 33.9 G/dL Normal 32.0-36.0 [facility] ([place]) Comment on above: Performed By: #### M G #### [address] [address] MCV (RBC) [Entitic vol] 88.5 fL Normal 80.0-99.0 [facility] ([place]) Comment on above: Performed By: #### M G #### [address] [address] Platelet 339 10 3/mcL Normal 150-450 [facility] ([place]) Comment on above: Performed By: #### M G #### [place] [phone] Platelet mean volume (Bld) [Entitic vol] 7.0 fL Normal 6.6-10.5 [facility] ([place]) Comment on above: Performed By: #### M G #### [place] [phone] RBC 3.78 10 6/mcL Low 4.10-5.30 [facility] ([place]) Comment on above: Performed By: #### M G #### [address] [address] WBC 10.9 10 3/mcL High 4.5-10.8 [facility] ([place]) Comment on above: Performed By: #### M G #### [place] [address] CMPon 03-19-2022 BUN/Creatinine Ratio Unable to Calculate Normal 10.0-2 2.0 [facility] ([place]) Comment on above: Result Comment: Unab le to calculate this test result accurately. Results used to calculate this test are outside the reportable range. Performed By: #### G FR, FMH, CMP, LD #### [place] [phone] Urea nitrogen [Mass/Vol] mg/dL Low 8.0-22.0 [facility] ([place]) Comment on above: Performed By: #### G FR, FMH, CMP, LD #### [place] [phone] Albumin Level 3.1 G/dL Low 3.2-4.8 [facility] ([place]) Comment on above: Performed By: #### G FR, FMH, CMP, LD #### [address] [address] Albumin/Globulin [Mass ratio] 1.1 {ratio} Normal 0.9-1.6 [facility] ([place]) Comment on above: Performed By: #### G FR, FMH, CMP, LD #### [address] [address] ALP [Catalytic activity/Vol] 100 U/L Normal 38-126 [facility] ([place]) Comment on above: Performed By: #### G FR, FMH, CMP, LD #### [place] [phone] ALT [Catalytic activity/Vol] 9 U/L Low 10-49 [facility] ([place]) Comment on above: Performed By: #### G FR, FMH, CMP, LD #### [place] [phone] AST [Catalytic activity/Vol] 13 U/L Normal 8-34 [facility] ([place]) Comment on above: Performed By: #### G FR, FMH, CMP, LD #### [place] [phone] Bili Total 0.40 mg/dL Normal 0.20-1.20 [facility] ([place]) Comment on above: Result Comment: Use of this assay is not recommended for patients undergoing treatment with eltrombopag due to the potential for falsely elevated results. Performed By: #### G FR, FMH, CMP, LD #### [address] [address] Calcium [Mass/Vol] 9.3 mg/dL Normal 8.7-10.4 [facility] ([place]) Comment on above: Performed By: #### G FR, FMH, CMP, LD #### [place] [phone] Chloride [Moles/Vol] 109 mmol/L Normal 98-110 [facility] ([place]) Comment on above: Performed By: #### G FR, FMH, CMP, LD #### [address] [address] CO2 [Moles/Vol] 27 mmol/L Normal 22-32 [facility] ([place]) Comment on above: Performed By: #### G FR, FMH, CMP, LD #### [address] [address] Creatinine [Mass/Vol] 0.43 mg/dL Low 0.50-1.20 [facility] ([place]) Comment on above: Performed By: #### G FR, FMH, CMP, LD #### [address] [address] Electrolyte Balance 4.0 mEq/L Normal 4.0-15.0 [facility] ([place]) Comment on above: Performed By: #### G FR, FMH, CMP, LD #### [address] [address] Globulin 2.9 G/dL Normal 1.5-3.8 [facility] ([place]) Comment on above: Performed By: #### G , FMH, CMP, LD #### [address] [address] Glucose [Mass/Vol] 80 mg/dL Normal 70-110 [facility] ([place]) Comment on above: Performed By: #### G FR, FMH, CMP, LD #### [address] [address] Potassium [Moles/Vol] 3.7 mmol/L Normal 3.5-5.0 [facility] ([place]) Comment on above: Performed By: #### G FR, FMH, CMP, LD #### [address] [address] Sodium [Moles/Vol] 140 mmol/L Normal 136-145 [facility] ([place]) Comment on above: Performed By: #### G FR, FMH, CMP, LD #### [address] [address] Total Protein 6.0 G/dL Normal 5.7-8.2 [facility] ([place]) Comment on above: Result Comment: No te - New Reference Range in effect 20 Performed By: #### G , Demetria, CMP, LD #### [address] [address] LDHon 03-19-2022 LDH 189 U/L Normal 120-246 [facility] ([place]) Comment on above: Performed By: #### M Moreno #### [address] [address] RPCURon 03-19-2022 U Creatinine 21.3 mg/dL Normal [facility] ([place]) Comment on above: Performed By: #### Moreno SCHMITT, Demetria, CMP, LD #### [address] [address] U Protein <6.0 Normal [facility] ([place]) Comment on above: Performed By: #### Moreno SCHMITT, Demetria, CMP, LD #### [place] [address] U Ratio Prot/Creat Unable to Calculate Normal [facility] ([place]) Comment on above: Result Comment: Unab le to calculate this test result accurately. Results used to calculate this test are outside the reportable range. result calculated by rule GL_UR_PROT_NOTCALC_OLD (U Protein/U Creatinine) Performed By: #### Moreno SCHMITT, Demetria, CMP, LD #### [address] [address] UAon 03-19-2022 Color (U) Colorless Normal [facility] ([place]) Comment on above: Performed By: #### Moreno SCHMITT, [facility], CMP, LD #### [address] [address] Glucose (U) [Mass/Vol] Negative Normal Negative [facility] ([place]) Comment on above: Performed By: #### Moreno SCHMITT, Demetria, CMP, LD #### [address] [address] Ketones Ql (U) Negative Normal Neg-Trace [facility] ([place]) Comment on above: Performed By: #### Moreno SCHMITT, [facility], CMP, LD #### [address] [address] UA Appear Clear Normal Clear [facility] ([place]) Comment on above: Performed By: #### G FR, FMH, CMP, LD #### [address] [address] UA Blood Negative Normal Neg-Trace [facility] ([place]) Comment on above: Performed By: #### G FR, FMH, CMP, LD #### [address] [address] UA Leuk Est Large Abnormal Negative [facility] ([place]) Comment on above: Performed By: #### G FR, FMH, CMP, LD #### [address] [address] UA Nitrite Negative Normal Negative [facility] ([place]) Comment on above: Performed By: #### G FR, FMH, CMP, LD #### [place] [address] UA pH 7.5 Normal 5.0 - 8.0 [facility] ([place]) Comment on above: Performed By: #### G FR, FMH, CMP, LD #### [address] [address] UA Protein Negative Normal Negative [facility] ([place]) Comment on above: Performed By: #### G FR, FMH, CMP, LD #### [address] [address] UA Spec Grav <=1.005 Abnormal 1.006-1.029 [facility] ([place]) Comment on above: Performed By: #### G FR, FMH, CMP, LD #### [address] [address] UA Specimen Type Clean Catch Normal [facility] ([place]) Comment on above: Performed By: #### G FR, FMH, CMP, LD #### [address] [address] UA Urobilinogen 0.2 E.U./dL Normal 0.2-1.0 [facility] ([place]) Comment on above: Performed By: #### G FR, FMH, CMP, LD #### [facility] [address] [place] [address] Urobilinogen (U) [Mass/Vol] Negative Normal Neg-Trace [facility] ([place]) Comment on above: Performed By: #### G , FMH, CMP, LD #### [address] [address] UAMICon 03-19-2022 UA Bacteria 1+ /hpf Abnormal Negative [facility] ([place]) Comment on above: Performed By: #### G , FMH, CMP, LD #### [address] [address] UA RBC Negative Normal 0-2 [facility] ([place]) Comment on above: Performed By: #### G , FMH, CMP, LD #### [address] [address] UA Squam Epithelial Negative Normal 0-20 [facility] ([place]) Comment on above: Performed By: #### Moreno SCHMITT, FMDemetria, CMP, LD #### [address] [address] UA WBC 3-5 Normal 0-5 [facility] ([place]) Comment on above: Performed By: #### G , FMH, CMP, LD #### [address] [address] GL1on 03-14-2022 Glucose [Mass/Vol] 146 mg/dL High 70-139 [facility] ([place]) Comment on above: Performed By: #### G , FMDemetria, CMP, LD #### [address] [address] GL2on 03-14-2022 Glucose [Mass/Vol] 130 mg/dL Normal [facility] ([place]) Comment on above: Performed By: #### G , FMH, CMP, LD #### [address] [address] GL3on 03-14-2022 Glucose [Mass/Vol] 63 mg/dL Normal [facility] ([place]) Comment on above: Performed By: #### G , FMH, CMP, LD #### [address] [address] GLFon 03-14-2022 Glucose [Mass/Vol] 91 mg/dL Normal 70-110 [facility] ([place]) Comment on above: Performed By: #### G , [facility], [facility], [place] #### [address] [address] RPRon 03-13-2022 Reagin Ab RPR Ql (S) Non-Reactive Normal Non-Reactive [facility] ([place]) Comment on above: Result Comment: The RPR [...] abnormal serum globulins. Performed By: #### G , [facility], [facility], [place] #### [address] [address] RUBISon 03-13-[address] Positive Normal Positive [facility] ([place]) Comment on above: Result Comment: This immune status assay detects IgM and/or IgG antibody to Rubella. Interpret results in conjunction with clinical history. POS: Antibody detected; exposure at undetermined recent or distant time. If clinically indicated, order Rubella IGM to rule out recent infection. NEG: No antibody detected. Performed By: #### G , [facility], CMP, LD #### [address] [address] VARISon 03-13-[address] Negative Normal [facility] ([place]) Comment on above: Result Comment: INTE RPRETATION OF VARICELLA IMMUNE STATUS IgG BY EIA: Negative: No detectable VZV IgG antibody. Positive: VZV IgG antibody Detected. If clinically indicated, order Varicella IgM to rule out recent infection. Equivocal: Equivocal for antibodies to VZV. Suggest repeat testing in 10-14 days. Performed By: #### G , [facility], [facility], [place] #### [address] [address] .Auto Diffon 03-12-2022 Basophil, Absolute 0.0 10 3/mcL Normal 0.0-0.3 [facility] ([place]) Comment on above: Performed By: #### G FR, FMH, CMP, LD #### [address] [address] Basophils/100 WBC (Bld) 0.0 % Normal 0.0-2.5 [facility] ([place]) Comment on above: Performed By: #### G FR, FMH, CMP, LD #### [address] [address] Eosinophil, Absolute 0.0 10 3/mcL Normal 0.0-0.7 [facility] ([place]) Comment on above: Performed By: #### G FR, FMH, CMP, LD #### [address] [address] Eosinophils/100 WBC (Bld) 0.0 % Normal 0.0-6.0 [facility] ([place]) Comment on above: Performed By: #### G FR, FMH, CMP, LD #### [address] [address] Lymphocyte, Absolute 1.1 10 3/mcL Normal 0.9-4.3 [facility] ([place]) Comment on above: Performed By: #### G FR, FMH, CMP, LD #### [address] [address] Lymphocytes/100 WBC (Bld) 8.1 % Low 20.0-40.0 [facility] ([place]) Comment on above: Performed By: #### G FR, FMH, CMP, LD #### [address] [address] Monocyte, Absolute 0.7 10 3/mcL Normal 0.1-1.4 [facility] ([place]) Comment on above: Performed By: #### G FR, FMH, CMP, LD #### [address] [address] Monocytes/100 WBC (Bld) 5.2 % Normal 2.0-13.0 [facility] ([place]) Comment on above: Performed By: #### G FR, FMH, CMP, LD #### [address] [address] Neutrophils/100 WBC (Bld) 86.7 % High 50.0-75.0 [facility] ([place]) Comment on above: Performed By: #### G FR, FMH, CMP, LD #### [address] [address] .NEUABSon 03-12-2022 Neutrophil, Absolute 11.6 10 3/mcL High 2.3-8.1 A [facility] ([place]) Comment on above: Performed By: #### G FR, FMH, CMP, LD #### [address] [address] CBCon 03-12-2022 Erythrocyte distribution width (RBC) [Ratio] 13.3 % Normal 11.5-15.5 [facility] ([place]) Comment on above: Performed By: #### G FR, FMH, CMP, LD #### [place] [address] Hematocrit (Bld) [Volume fraction] 33.8 % Low 34.0-46.0 [facility] ([place]) Comment on above: Performed By: #### G FR, FMH, CMP, LD #### [address] [address] Hgb 11.4 G/dL Low 12.0-16.0 [facility] ([place]) Comment on above: Performed By: #### G FR, FMH, CMP, LD #### [address] [address] MCH (RBC) [Entitic mass] 30.2 pg Normal 27.0-33.0 [facility] ([place]) Comment on above: Performed By: #### G FR, FMH, CMP, LD #### [place] [phone] MCHC 33.8 G/dL Normal 32.0-36.0 [facility] ([place]) Comment on above: Performed By: #### G FR, FMH, CMP, LD #### [place] [phone] [place] [address] MCV (RBC) [Entitic vol] 89.5 fL Normal 80.0-99.0 [facility] ([place]) Comment on above: Performed By: #### G FR, FMH, CMP, LD #### [address] [address] Platelet 315 10 3/mcL Normal 150-450 [facility] ([place]) Comment on above: Performed By: #### G FR, FMH, CMP, LD #### [address] [address] Platelet mean volume (Bld) [Entitic vol] 7.8 fL Normal 6.6-10.5 [facility] ([place]) Comment on above: Performed By: #### G FR, H, CMP, LD #### [address] [address] RBC 3.78 10 6/mcL Low 4.10-5.30 [facility] ([place]) Comment on above: Performed By: #### G FR, FMH, CMP, LD #### [address] [address] WBC 13.4 10 3/mcL High 4.5-10.8 [facility] ([place]) Comment on above: Performed By: #### G FR, FMH, CMP, LD #### [address] [address] CTPCRon 03-12-2022 C. trachomatis Interp Normal See CT Interp N [facility] ([place]) Comment on above: Result Comment: C. t rachomatis DNA not detected. Specimen is presumptive negative for C. trachomatis. A negative result does not preclude C. trachomatis infection because results depend on adequate specimen collection, absence of inhibitors, and sufficient DNA to be detected. See CT Interp N Performed By: #### G FR, FMH, CMP, LD #### [address] [address] C.trachomatis PCR Negative Normal Negative [facility] ([place]) Comment on above: Result Comment: Mole cular (PCR) assay performed on the [employer] 4800 system. Performed By: #### DANDRE RENEE, [place], [place] #### [place] [address] Chlam Source Cervix Normal [facility] ([place]) Comment on above: Performed By: #### Moreno SCHMITT, DANDRE, [place], [place] #### [place] [phone] GBSPCRon 03-12-2022 Group B Strep (PCR) Positive Abnormal Negative [facility] ([place]) Comment on above: Result Comment: Note s [id number] Performed By: #### DANDRE RENEE, [place], [place] #### [place] [address] Group B Strep PCR Int Normal [facility] ([place]) Comment on above: Result Comment: Grou p [...] this method. See Below Performed By: #### DANDRE RENEE, [place], [place] #### [place] [address] HBSAGon 03-12-2022 Hep B Surf Ag Non-Reactive Normal Non-Reactive [facility] ([place]) Comment on above: Performed By: #### DANDRE RENEE, [place], [place] #### [place] [address] HCVon 03-12-2022 Hep C Ab Non-Reactive Normal Non-Reactive [facility] ([place]) Comment on above: Performed By: #### DANDRE RENEE, [place], [place] #### [place] [address] Hep C Ab Int Normal [facility] ([place]) Comment on above: Result Comment: Nonr eactive: Samples with a value < 0.80 are considered nonreactive (negative) for antibodies to HCV. A negative test result does not exclude the possibility of exposure to or infection with HCV. HCV antibodies may be undetectable in some stages of the infection and in some clinical conditions. See Interp Performed By: #### G , DANDRE, ISABELLA, LD #### [address] [address] HIVon 03-12-2022 HIV 1/2 Ab Normal Non-Reactive [facility] ([place]) Comment on above: Result Comment: Non- Reactive Specimen is negative for anti-HIV-1 and anti-HIV-2. Performed By: #### G , DANDRE, ISABELLA, LD #### [address] [address] LABORATORYOrdered By: SYSTEM SYSTEM on 03-12-2022 Basophils [...] in some clinical conditions. Invalid Interpretation Code AH Chemistry S HIV 1+2 Ab IA Ql Negative Invalid Interpretation Code Chemistry S HIV 1/2 Ab Non-Reactive (03/12/22 5:36 AM) Invalid Interpretation Code Non-Reactive AH ADM SS [id number] 03-12-2022 GC PCR Source Vaginal Normal [facility] ([place]) Comment on above: Performed By: #### G FR, FMH, CMP, LD #### [address] [address] N. gonorrhoeae (PCR) Negative Normal Negative [facility] ([place]) Comment on above: Result Comment: Nancy rogerar (PCR) assay performed on the [employer] 4800 System. Performed By: #### Moreno SCHMITT, DANDRE, [place], [place] #### [address] [address] N. gonorrhoeae Interp Normal [facility] ([place]) Comment on above: Result Comment: N. g onorrhoeae DNA not detected. Specimen is presumptive negative for N. gonorrhoeae. A negative result does not preclude Neisseria gonorrhoeae infection because results depend on adequate specimen collection, absence of inhibitors, and sufficient DNA to be detected. See NG Interp N Performed By: #### Moreno SCHMITT, DANDRE, [place], [place] #### [address] [address] .Auto Diffon 03-11-2022 Basophil, Absolute 0.0 10 3/mcL Normal 0.0-0.3 [facility] ([place]) Comment on above: Performed By: #### Moreno SCHMITT, DANDRE, CMP, LD #### [address] [address] Basophils/100 WBC (Bld) 0.4 % Normal 0.0-2.5 [facility] ([place]) Comment on above: Performed By: #### Moreno SCHMITT, DANDRE, CMP, LD #### [address] [address] Eosinophil, Absolute 0.2 10 3/mcL Normal 0.0-0.7 [facility] ([place]) Comment on above: Performed By: #### Moreno SCHMITT, DANDRE, CMP, LD #### [address] [address] Eosinophils/100 WBC (Bld) 1.6 % Normal 0.0-6.0 [facility] ([place]) Comment on above: Performed By: #### Moreno SCHMITT, DANDRE, CMP, LD #### [address] [address] Lymphocyte, Absolute 2.3 10 3/mcL Normal 0.9-4.3 [facility] ([place]) Comment on above: Performed By: #### Moreno SCHMITT, KELLYH, CMP, LD #### [address] [address] Lymphocytes/100 WBC (Bld) 21.7 % Normal 20.0-40.0 [facility] ([place]) Comment on above: Performed By: #### G FR, FMH, CMP, LD #### [address] [address] Monocyte, Absolute 1.0 10 3/mcL Normal 0.1-1.4 [facility] ([place]) Comment on above: Performed By: #### G FR, FMH, CMP, LD #### [address] [address] Monocytes/100 WBC (Bld) 9.2 % Normal 2.0-13.0 [facility] ([place]) Comment on above: Performed By: #### G FR, FMH, CMP, LD #### [address] [address] Neutrophils/100 WBC (Bld) 67.1 % Normal 50.0-75.0 [facility] ([place]) Comment on above: Performed By: #### G FR, FMH, CMP, LD #### [address] [address] .GFRon 03-11-2022 GFR >60 Normal [facility] ([place]) Comment on above: Result Comment: GFR Population [...] #### G FR, FMH, CMP, LD #### [address] [address] GFR Non- >60 Normal [facility] ([place]) Comment on above: Result Comment: GFR Population [...] #### G FR, FMH, CMP, LD #### [address] [address] .NEUABSon 03-11-2022 Neutrophil, Absolute 7.0 10 3/mcL Normal 2.3-8.1 [facility] ([place]) Comment on above: Performed By: #### G FR, FMH, CMP, LD #### [address] [address] ABIDon 03-11-2022 Antibody ID Passive Anti-D Invalid Interpretation Code [facility] ([place]) Comment on above: Order Comment: Order ed by Discern Expert Performed By: #### G FR, FMH, CMP, LD #### [address] [address] ABO/Rh (Gel)on 03-11-2022 ABO/Rh Interp Negative Invalid Interpretation Code [facility] ([place]) Comment on above: Performed By: #### G FR, FMH, CMP, LD #### [address] [address] ABS (Gel)on 03-11-2022 ABSC Interp (Gel) Positive Normal [facility] ([place]) Comment on above: Performed By: #### G FR, FMH, CMP, LD #### [place] [id number] AUTOCon 03-11-2022 Auto Control Negative Normal [facility] ([place]) Comment on above: Order Comment: Order ed by Discern Expert Performed By: #### G , FMH, CMP, LD #### [address] [address] CBCon 03-11-2022 Erythrocyte distribution width (RBC) [Ratio] 13.3 % Normal 11.5-15.5 [facility] ([place]) Comment on above: Performed By: #### G , FMH, CMP, LD #### [place] [address] Hematocrit (Bld) [Volume fraction] 35.1 % Normal 34.0-46.0 [facility] ([place]) Comment on above: Performed By: #### Moreno SCHMITT, FMH, CMP, LD #### [place] [address] Hgb 11.9 G/dL Low 12.0-16.0 [facility] ([place]) Comment on above: Performed By: #### Moreno FR, FMH, CMP, LD #### [place] [address] MCH (RBC) [Entitic mass] 29.8 pg Normal 27.0-33.0 [facility] ([place]) Comment on above: Performed By: #### G FR, FMH, CMP, LD #### [place] [address] MCHC 33.8 G/dL Normal 32.0-36.0 [facility] ([place]) Comment on above: Performed By: #### G FR, FMH, CMP, LD #### [place] [address] MCV (RBC) [Entitic vol] 88.3 fL Normal 80.0-99.0 [facility] ([place]) Comment on above: Performed By: #### G FR, FMH, CMP, LD #### [place] [address] Platelet 306 10 3/mcL Normal 150-450 [facility] ([place]) Comment on above: Performed By: #### G FR, FMH, CMP, LD #### [address] [address] Platelet mean volume (Bld) [Entitic vol] 7.8 fL Normal 6.6-10.5 [facility] ([place]) Comment on above: Performed By: #### G FR, FMH, CMP, LD #### [address] [address] RBC 3.98 10 6/mcL Low 4.10-5.30 [facility] ([place]) Comment on above: Performed By: #### G FR, FMH, CMP, LD #### [address] [address] WBC 10.4 10 3/mcL Normal 4.5-10.8 [facility] ([place]) Comment on above: Performed By: #### G FR, FMH, CMP, LD #### [address] [address] CMPon 03-11-2022 Albumin Level 3.0 G/dL Low 3.2-4.8 [facility] ([place]) Comment on above: Performed By: #### G FR, FMH, CMP, LD #### [address] [address] Albumin/Globulin [Mass ratio] 1.1 {ratio} Normal 0.9-1.6 [facility] ([place]) Comment on above: Performed By: #### G FR, FMH, CMP, LD #### [address] [address] ALP [Catalytic activity/Vol] 93 U/L Normal 38-126 [facility] ([place]) Comment on above: Performed By: #### G FR, FMH, CMP, LD #### [address] [address] ALT [Catalytic activity/Vol] 9 U/L Low 10-49 [facility] ([place]) Comment on above: Performed By: #### G FR, FMH, CMP, LD #### [address] [address] AST [Catalytic activity/Vol] 17 U/L Normal 8-34 [facility] ([place]) Comment on above: Performed By: #### Moreno SCHMITT, FMDemetria, CMP, LD #### [address] [address] Bili Total 0.30 mg/dL Normal 0.20-1.20 [facility] ([place]) Comment on above: Result Comment: Use of this assay is not recommended for patients undergoing treatment with eltrombopag due to the potential for falsely elevated results. Performed By: #### Moreno SCHMITT, FMDemetria, CMP, LD #### [address] [address] Calcium [Mass/Vol] 9.3 mg/dL Normal 8.7-10.4 [facility] ([place]) Comment on above: Performed By: #### Moreno SCHMITT, FMDemetria, CMP, LD #### [address] [address] Chloride [Moles/Vol] 110 mmol/L Normal 98-110 [facility] ([place]) Comment on above: Performed By: #### Moreno SCHMITT, FMDemetria, CMP, LD #### [address] [address] CO2 [Moles/Vol] 25 mmol/L Normal 22-32 [facility] ([place]) Comment on above: Performed By: #### Moreno SCHMITT, FMDemetria, CMP, LD #### [address] [address] Creatinine [Mass/Vol] 0.44 mg/dL Low 0.50-1.20 [facility] ([place]) Comment on above: Performed By: #### Moreno SHCMITT, FMH, CMP, LD #### [address] [address] Electrolyte Balance 9.0 mEq/L Normal 4.0-15.0 [facility] ([place]) Comment on above: Performed By: #### Moreno SCHMITT, FMH, CMP, LD #### [address] [address] Globulin 2.8 G/dL Normal 1.5-3.8 [facility] ([place]) Comment on above: Performed By: #### Moreno SCHMITT, FMH, CMP, LD #### [address] [address] Glucose [Mass/Vol] 74 mg/dL Normal 70-110 [facility] ([place]) Comment on above: Performed By: #### G FR, FMH, CMP, LD #### [address] [address] Potassium [Moles/Vol] 3.5 mmol/L Normal 3.5-5.0 [facility] ([place]) Comment on above: Performed By: #### G FR, FMH, CMP, LD #### [address] [address] Sodium [Moles/Vol] 144 mmol/L Normal 136-145 [facility] ([place]) Comment on above: Performed By: #### G , FMH, CMP, LD #### [address] [address] Total Protein 5.8 G/dL Normal 5.7-8.2 [facility] ([place]) Comment on above: Result Comment: No te - New Reference Range in effect 20 Performed By: #### G , FMH, CMP, LD #### [address] [address] Urea nitrogen [Mass/Vol] mg/dL Low 8.0-22.0 [facility] ([place]) Comment on above: Performed By: #### G FR, FMH, CMP, LD #### [address] [address] Urea nitrogen/Creatinine [Mass ratio] mg/mg Normal 10.0-22.0 [facility] ([place]) Comment on above: Performed By: #### G FR, FMH, CMP, LD #### [address] [address] DATIGGon 03-11-2022 UBALDO IgG Interp (Gel) Negative Normal [facility] ([place]) Comment on above: Order Comment: Order ed by Discern Performed By: #### G , FMH, CMP, LD #### [address] [address] LABORATORYOrdered By: Corbin Desai on 03-11-2022 Appearance [...] (U) [Mass/Vol] 116.7 mg/dL Invalid Interpretation Code ADM SS Protein (U) [Mass/Vol] 27.7 mg/dL Invalid Interpretation Code ADM SS U Ratio Prot/Creat 0.2 ratio Invalid Interpretation Code [facility] LABORATORYOrdered By: Amy Wang on 03-11-2022 N. gonorrhoeae DNA BONIFACIO+probe Ql (Unsp spec) Negative (03/11/22 2:59 PM) Invalid Interpretation Code Negative Auto Viro/Sero SS N. gonorrhoeae DNA BONIFACIO+probe Ql (Unsp spec) N. gonorrhoeae DNA not detected. Specimen is presumptive negative forN. gonorrhoeae. A negative result does not preclude Neisseria gonorrhoeaeinfection because results depend on adequate specimen collection, absenceof inhibitors, and sufficient DNA to be detected. Invalid Interpretation Code Auto Viro/Sero SS Specimen source Nom (Unsp spec) Vaginal (03/11/22 2:59 PM) Invalid Interpretation Code Auto Viro/Sero SS C. trachomatis DNA BONIFACIO+probe Ql (Unsp spec) Negative (03/11/22 2:51 PM) Invalid Interpretation Code Negative Auto Viro/Sero SS C. trachomatis DNA BONIFACIO+probe [...] (03/11/22 2:59 PM) Invalid Interpretation Code Negative Auto Viro/Sero SS Comment on above: Result Comment: Note s [id number] S. agalactiae DNA BONIFACIO+probe Ql (Vag+Rectum) Group [...] Interpretation Code BB Auto SS LABORATORYOrdered By: [employer] on 03-11-2022 Albumin BCP dye [Mass/Vol] 3.0 G/dL Invalid Interpretation Code 3.2 - 4.8 G/dL AH ADM SS Albumin/Globulin [Mass ratio] 1.1 {ratio} Invalid Interpretation Code 0.9 - 1.6 ratio AH ADM SS ALP [Catalytic activity/Vol] 93 U/L [...] 10^3/mcL AH Workflow SS Basophils/100 WBC (Bld) 0.4 % Invalid Interpretation Code 0.0 - 2.5 % AH Workflow SS Bilirubin [Mass/Vol] 0.30 mg/dL Invalid Interpretation Code 0.20 - 1.20 mg/dL ADM SS Calcium [Mass/Vol] 9.3 mg/dL Invalid Interpretation Code 8.7 - 10.4 mg/dL AH ADM SS Chloride [Moles/Vol] 110 mmol/L Invalid Interpretation Code 98 - 110 mEq/L ADM SS CO2 [Moles/Vol] 25 mmol/L Invalid Interpretation Code 22 - 32 mEq/L AH ADM SS Creatinine [Mass/Vol] 0.44 mg/dL Invalid Interpretation Code 0.50 - 1.20 mg/dL AH ADM SS Electrolyte Balance 9.0 mEq/L Invalid Interpretation Code 4.0 - 15.0 mEq/L ADM SS Eosinophils (Bld) [#/Vol] 0.2 103/mcL Invalid Interpretation Code 0.0 - 0.7 10^3/mcL AH Workflow SS Eosinophils/100 WBC (Bld) 1.6 % Invalid Interpretation Code 0.0 - 6.0 % AH Workflow SS Erythrocyte distribution width (RBC) [Ratio] 13.3 % Invalid Interpretation Code 11.5 - 15.5 % AH Workflow SS GFR/1.73 sq M.predicted among blacks [...] 10^3/mcL AH Workflow SS Lymphocytes/100 WBC (Bld) 21.7 % Invalid Interpretation Code 20.0 - 40.0 % AH Workflow SS MCH (RBC) [Entitic mass] 29.8 pg Invalid Interpretation Code 27.0 - 33.0 pg AH Workflow SS MCHC 33.8 G/dL Invalid Interpretation Code 32.0 - 36.0 G/dL AH Workflow SS MCV (RBC) [Entitic vol] 88.3 fL Invalid Interpretation Code 80.0 - 99.0 fL AH Workflow SS Monocytes (Bld) [#/Vol] 1.0 103/mcL Invalid Interpretation Code 0.1 - 1.4 10^3/mcL AH Workflow SS Monocytes/100 WBC (Bld) 9.2 % Invalid Interpretation Code 2.0 - 13.0 % AH Workflow SS Neutrophils (Bld) [#/Vol] 7.0 103/mcL Invalid Interpretation Code 2.3 - 8.1 10^3/mcL AH Workflow SS Neutrophils/100 WBC (Bld) 67.1 % Invalid Interpretation Code 50.0 - 75.0 % AH Workflow SS Platelet mean volume (Bld) [Entitic vol] 7.8 fL Invalid Interpretation Code 6.6 - 10.5 fL AH Workflow SS Platelets (Bld) [#/Vol] 306 103/mcL Invalid Interpretation Code 150 - 450 10^3/mcL AH Workflow SS Potassium [Moles/Vol] 3.5 mmol/L Invalid Interpretation Code 3.5 - 5.0 mEq/L AH ADM SS Protein [Mass/Vol] 5.8 G/dL Invalid Interpretation Code 5.7 - 8.2 G/dL AH ADM SS RBC (Bld) [#/Vol] 3.98 106/mcL Invalid Interpretation Code 4.10 - 5.30 10^6/mcL AH Workflow SS Sodium [Moles/Vol] 144 mmol/L Invalid Interpretation Code 136 - 145 mEq/L ADM SS Urea nitrogen [Mass/Vol] mg/dL Invalid Interpretation Code 8.0 - 22.0 mg/dL AH ADM SS Urea nitrogen/Creatinine [Mass ratio] ratio Invalid Interpretation Code 10.0 [...] LDHon 03-11-2022 LDH 186 U/L Normal 120-246 [facility] ([place]) Comment on above: Performed By: #### G FR, FMH, CMP, LD #### [facility] [address] [place] [address] No Panel Informationon 03-11 Culture Urine No growth to date [facility] Work Phone: RPCURon 03-11-2022 U Creatinine 116.7 mg/dL Normal [facility] ([place]) Comment on above: Performed By: #### G FR, FMH, CMP, LD #### [address] [address] U Protein 27.7 mg/dL Normal [facility] ([place]) Comment on above: Performed By: #### G FR, FMH, CMP, LD #### [facility] [address] [place] [address] U Ratio Prot/Creat 0.2 ratio Normal [facility] ([place]) Comment on above: Result Comment: resu lt calculated by rule [id number]_OLD (U Protein/U Creatinine) Performed By: #### G , FMH, CMP, LD #### [address] [address] UAon 03-11-2022 Color (U) Yellow Normal [facility] ([place]) Comment on above: Performed By: #### Moreno SCHMITT, FMH, CMP, LD #### [address] [address] Glucose (U) [Mass/Vol] Negative Normal Negative [facility] ([place]) Comment on above: Performed By: #### Moreno SCHMITT, FMH, CMP, LD #### [address] [address] Ketones Ql (U) Negative Normal Neg-Trace [facility] ([place]) Comment on above: Performed By: #### G , FMH, CMP, LD #### [address] [address] UA Appear Clear Normal Clear [facility] ([place]) Comment on above: Performed By: #### G FR, FMH, CMP, LD #### [address] [address] UA Blood Negative Normal Neg-Trace [facility] ([place]) Comment on above: Performed By: #### G FR, FMH, CMP, LD #### [address] [address] UA Leuk Est Small Abnormal Negative [facility] ([place]) Comment on above: Performed By: #### G FR, FMH, CMP, LD #### [address] [address] UA Nitrite Negative Normal Negative [facility] ([place]) Comment on above: Performed By: #### G FR, FMH, CMP, LD #### [address] [address] UA pH 7.5 Normal 5.0 - 8.0 [facility] ([place]) Comment on above: Performed By: #### G FR, FMH, CMP, LD #### [address] [address] UA Protein Negative Normal Negative [facility] ([place]) Comment on above: Performed By: #### G FR, FMH, CMP, LD #### [address] [address] UA Spec Grav 1.010 Normal 1.006-1.029 [facility] ([place]) Comment on above: Performed By: #### G FR, FMH, CMP, LD #### [place] [address] UA Specimen Type Clean Catch Normal [facility] ([place]) Comment on above: Performed By: #### G FR, FMH, CMP, LD #### [address] [address] UA Urobilinogen 0.2 E.U./dL Normal 0.2-1.0 [facility] ([place]) Comment on above: Performed By: #### G FR, FMH, CMP, LD #### [place] [address] Urobilinogen (U) [Mass/Vol] Negative Normal Neg-Trace [facility] ([place]) Comment on above: Performed By: #### G FR, FMH, CMP, LD #### [address] [address] UAMICon 03-11-2022 UA Bacteria Trace Abnormal Negative [facility] ([place]) Comment on above: Performed By: #### G FR, FMH, CMP, LD #### [address] [address] UA Mucous Trace Normal [facility] ([place]) Comment on above: Performed By: #### G FR, FM, CMP, LD #### [facility] [address] [place] [address] UA RBC 0-2 Normal 0-2 [facility] ([place]) Comment on above: Performed By: #### G FR, FM, CMP, LD #### [facility] [address] [place] [address] UA Squam Epithelial 0-2 Normal 0-20 [facility] ([place]) Comment on above: Performed By: #### G FR, FM, CMP, LD #### [address] [address] UA WBC 0-2 Normal 0-5 [facility] ([place]) Comment on above: Performed By: #### G FR, [facility], CMP, LD #### [address] [address] UA Yeast Trace Abnormal [facility] ([place]) Comment on above: Performed By: #### G , [facility], CMP, LD #### [place] [address] RPRon 03-05-2022 Reagin Ab RPR Ql (S) Non-Reactive Normal Non-Reactive [facility] ([place]) Comment on above: Result Comment: The RPR [...] globulins. Performed By: #### M G #### [address] [address] .Auto Diffon 03-04-2022 Basophil, Absolute 0.1 10 3/mcL Normal 0.0-0.3 [facility] ([place]) Comment on above: Performed By: #### M G #### [place] [id number] Basophils/100 WBC (Bld) 0.9 % Normal 0.0-2.5 [facility] ([place]) Comment on above: Performed By: #### M G #### [address] [address] Eosinophil, Absolute 0.1 10 3/mcL Normal 0.0-0.7 [facility] ([place]) Comment on above: Performed By: #### M G #### [address] [address] Eosinophils/100 WBC (Bld) 1.2 % Normal 0.0-6.0 [facility] ([place]) Comment on above: Performed By: #### M G #### [address] [address] Lymphocyte, Absolute 1.4 10 3/mcL Normal 0.9-4.3 [facility] ([place]) Comment on above: Performed By: #### M G #### [address] [address] Lymphocytes/100 WBC (Bld) 18.3 % Low 20.0-40.0 [facility] ([place]) Comment on above: Performed By: #### M G #### [address] [address] Monocyte, Absolute 0.6 10 3/mcL Normal 0.1-1.4 [facility] ([place] Comment on above: Performed By: #### M G #### [address] [address] Monocytes/100 WBC (Bld) 7.5 % Normal 2.0-13.0 [facility] ([place]) Comment on above: Performed By: #### M G #### [address] [address] Neutrophils/100 WBC (Bld) 72.1 % Normal 50.0-75.0 [facility] ([place]) Comment on above: Performed By: #### M G #### [address] [address] .NEUABSon 03-04-2022 Neutrophil, Absolute 5.7 10 3/mcL Normal 2.3-8.1 [facility] ([place]) Comment on above: Performed By: #### M G #### [address] [address] ABS (Gel)on 03-04-2022 ABSC Interp (Gel) Negative Normal [facility] ([place]) Comment on above: Performed By: #### M G #### [place] [id number] CBCon 03-04-2022 Erythrocyte distribution width (RBC) [Ratio] 13.5 % Normal 11.5-15.5 [facility] ([place]) Comment on above: Performed By: #### M G #### [place] [address] Hematocrit (Bld) [Volume fraction] 35.5 % Normal 34.0-46.0 [facility] ([place]) Comment on above: Performed By: #### M G #### [place] [address] Hgb 11.9 G/dL Low 12.0-16.0 [facility] ([place]) Comment on above: Performed By: #### M G #### [place] [address] MCH (RBC) [Entitic mass] 30.0 pg Normal 27.0-33.0 [facility] ([place]) Comment on above: Performed By: #### M G #### [place] [address] MCHC 33.6 G/dL Normal 32.0-36.0 [facility] ([place]) Comment on above: Performed By: #### M G #### [place] [address] MCV (RBC) [Entitic vol] 89.4 fL Normal 80.0-99.0 [facility] ([place]) Comment on above: Performed By: #### M G #### [place] [address] Platelet 295 10 3/mcL Normal 150-450 [facility] ([place]) Comment on above: Performed By: #### M G #### [address] [address] Platelet mean volume (Bld) [Entitic vol] 8.7 fL Normal 6.6-10.5 [facility] ([place]) Comment on above: Performed By: #### M G #### [address] [address] RBC 3.97 10 6/mcL Low 4.10-5.30 [facility] ([place]) Comment on above: Performed By: #### M G #### [address] [address] WBC 7.8 10 3/mcL Normal 4.5-10.8 [facility] ([place]) Comment on above: Performed By: #### M G #### [address] [address] [id number] 03-04-2022 Glucose [Mass/Vol] 136 mg/dL Normal 70-139 [facility] ([place]) Comment on above: Performed By: #### M G #### [address] [address] Absolute lymphocyte counton 09-25-2021 Lymphocytes Auto (Unsp spec) [#/Vol] 2.26 10*3/uL 0.83-4.51 [facility] Work Phone: Basophil percentageon 2021 Basophils/100 WBC (Bld) 0.4 % 0-1 [facility] Work Phone: Eosinophils/100 WBC (Bld) 0.7 % 0-5 [facility] Work Phone: Neutrophils (Bld) [#/Vol] 4.1 10*3/uL 2.0-7.7 [facility] Work Phone: Neutrophils/100 WBC (Bld) 57.8 % 47-70 [facility] Work Phone: WBC (Bld) [#/Vol] 7.1 10*3/uL 4.4-11.0 [facility] Work Phone: Blood erythrocytes count (nu mber/volume)on 09-25-2021 RBC (Bld) [#/Vol] 4.82 10*6/uL 4.2-5.4 [facility] Work Phone: Blood hemoglobin measurement (mass/volume)on 09-25-2021 Hemoglobin (Bld) [Mass/Vol] 14.0 g/dL 12.0-15.0 [facility] Work Phone: [phone] Blood lymphocytes/100 leukoc yteson 09-25-2021 Lymphocytes/100 WBC (Bld) 31.9 % 19-41 [facility] Work Phone: [phone] Blood monocytes/100 leukocyt eson 09-25-2021 Monocytes/100 WBC (Bld) 8.9 % 0-10 [facility] Work Phone: [phone] Blood platelet mean volumeon 09-25-2021 Platelet mean volume (Bld) [Entitic vol] 9.3 fL 6.2-12.0 [facility] Work Phone: [phone] Cervical or vagninal specime n microscopic examination by cytology stain (reported ason 09-25-2021 Cytology report Cyto stain Doc (Cvx/Vag) Comment [facility] Work Phone: Comment on above: The Pap [...] rRNA BONIFACIO+probe Ql (Unsp spec) Negative Negative [facility] Work Phone: [phone] Culture, urineon 09-25-2021 Bacteria identified Cx Nom (U) Positive [facility] Work Phone: [phone] Determination of erythrocyte mean corpuscular volume (MCV)on 09-25-2021 MCV (RBC) [Entitic vol] 88.6 fL 81-99 [facility] Work Phone: [phone] HIV 1 and HIV-2 antibody ass ay with HIV-1 p24 antigen detectionon 09-25-2021 HIV 1+2 Ab+HIV1 p24 Ag IA Ql Non-Reactive Nonreactive [facility] Work Phone: [phone] Hematocrit Auto (Bld) [Volum e fraction]on 09-25-2021 Hematocrit (Bld) [Volume fraction] 42.7 % 37-47 [facility] Work Phone: Laboratory - Cytologyon Tiler Cyto stain Nom (Cvx/Vag) [ID] Comment [facility] Work Phone: [phone] Comment on above: Morgan Mckeon totechnologist (ASCP) Laboratory - Hematology and Cell countson 09-25-2021 Erythrocyte distribution width (RBC) [Entitic vol] 41.3 fL 35.1-43.9 [facility] Work Phone: [phone] Erythrocyte distribution width (RBC) [Ratio] 12.8 % 11.6-14.6 [facility] Work Phone: [phone] Immature granulocytes/100 WBC (Bld) 0.300 % 0.0-0.9 [facility] Work Phone: [phone] Comment on above: IG% - Immature Granu locytes (promyelocytes, myelocytes and metamyelocytes) > 1% indicates that a LEFT SHIFT is Present. MCH (RBC) [Entitic mass] 29.0 pg 27.0-32.0 [facility] Work Phone: [phone] Nucleated RBC/100 WBC (Bld) [Ratio] 0 % 0-5 [facility] Work Phone: [phone] Laboratory - Microbiology an d Antimicrobial susceptibilityon 09-25-2021 N. gonorrhoeae DNA BONIFACIO+probe Ql (Unsp spec) Negative Negative [facility] Work Phone: [phone] Comment on above: Performed at: =[facility] [address] [place] [id number]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 04/24/2017 03:00[facility]: [facility] [[id number]] Attending Swdkukbrl45 / F / 1995Chart (V2b)Chart created at 04/24/2017 02:25 by Katerin Holden closed at 04/24/2017 02:25Entry in Emergency Department at 04/24/2017 00:58,departure at 04/24/2017 02:38Patient Name: Lalitha Garcia Record Number: [id number]: 04/24/2017 02:25Entered Department at: 04/24/2017 00:58 Patient Seen at:04/24/2017 01:07 PCP:*None,.Chief Complaint:Cough and Congestion, wheezing x 3 weeksTriage Note reviewed and Initial Vital Signs reviewed.Temperature: 98.6 F (37 C). Pulse: 137. Respiratory Rate:18. Blood-pressure:164/72. Oxygen Saturation: 98%.Medications:NoneAller gies:No Known AllergiesSocial History: Reviewed RN Note. [facility] PATIENT NAME: LALITHA GARICA [facility] [facility] MEDICAL REC #: [id number], [place] [address] DEPARTMENT CHART EMERGENCY DEPARTMENT PHYSICIANCBC W/DIFF, information [...] agree with the evaluation, planof care and disposition..Electronical ly signed by Katerin Howe on 04/24/2017 at02:25 : Discharge ReportEvent Time: 04/24/2017 02:22: FlexChartDataEvent Time: 04/24/2017 01:55Status: [facility]ather[facility] maria Garcia [[id number]] Mid-Level Chart (V2b) / 1995 [facility] PATIENT NAME: LALITHA GARCIA [address] [facility] [address] P[address]it MEDICAL REC #: [id number], [place] [address] DEPARTMENT CHART EMERGENCY DEPARTMENT PHYSICIANChart created at 04/24/2017 01:48 by Mike GaryChart closed at 04/24/2017 02:11Entry in Emergency Department at 04/24/2017 00:58Patient Name: Lalitha Garcia Record Number: [id number]: 04/24/2017 01:48Entered Department at: 04/24/2017 00:58 Patient [...] negative for Bleeding Immunology:negative for Joint Pain [facility] PATIENT NAME: LALITHA GARCIA [facility] [facility] MEDICAL REC #: [id number], [place] [address] DEPARTMENT CHART EMERGENCY DEPARTMENT PHYSICIANPast History, Medications, [...] Petechiae,Warm and Dry Psychological: Mood/Affect Normal and NormalMemory/JudgmentLACT ATE BLOOD, information as of 04/24/2017, 1:26 amLACTATE [...] 0.0 %; RBC: 4.91 M/CuMm; RDW: 14.0 [facility] PATIENT NAME: LALITHA GARCIA [address] [facility] Dr. Pettit [facility] REC #: [id number], [place] [address] DEPARTMENT CHART EMERGENCY DEPARTMENT PHYSICIANHCG, information as of 04/24/2017, 1:17 [facility] RESULT: NegImaging Study Obtained:CHEST PA/AP LATERALRadiology: [...] sided pneumoniaDisposition: Discharged *Home. Condition: Good at 02:11 co-signature: Katerin Howe===DISCHARGE REPORT=== [facility] PATIENT NAME: LALITHA GARCIA [id number] [facility] [address] Pettit MEDICAL REC #: [id number], [place] [address] DEPARTMENT CHART EMERGENCY DEPARTMENT PHYSICIAN: FlexChartDataEvent Time: [...] timeframe for follow-up. Pleasefollow all your discharge instructions.Medications: Unless the ER doctor tells you differently, you should takeall your regular medications and any newmedications prescribed today. Because it is not possiblefor the ER doctor to review all of yourmedication side effects or interactions, you must reviewpossible side effects and interactions with yourpharmacist when you get your prescriptions filled.EKG and Radiology Results:A broadcast producer or radiologist will review any EKG orradiology results provided by the ER doctor. We willcontact you if the results in the final EKG or radiologyreports require a change in treatment.Culture Results:Cultures may have been ordered during your ER visit. Wewill contact you if the culture results require achange in treatment.Referrals: [facility] PATIENT NAME: LALITHA GARCIA M[address] [facility] [address] Pettit [facility] REC #: [id number], [place] [address] DEPARTMENT CHART EMERGENCY DEPARTMENT PHYSICIANMost referrals to specialists come from the on-call listYou should make your regular doctor aware of anyreferrals before you schedule the appointment so that theyare aware and can make suggestionsDIAGNOSIS:acut e bronchitis with early right sided pneumoniaINSTRUCTIONS:Hannah se follow up with your family physician is [...] plenty of fluids,and avoid alcohol and tobacco. Ppdo-gbh-rmgfilzttatwiqjg (if you are not ) or acetaminophen may beused for aches, pains and fever.Rpvs-hqz-jwzdtmr cough medications may also help you feelbetter. [...] fever or chillsIncreasingcough, shortness of breath or wheezingIncreasingretract ions (especially seen in children)New orincreasing chest pain or pressureNew or increasing swellingin the arms or legs New or increasingproblems with coughing up bloodNew or increasingvomitingNew or increasing weakness or confusion [facility] PATIENT NAME: LALITHA GARCIA M[address] [facility] [address] Pettit MEDICAL REC #: [id number], [place] [address] DEPARTMENT CHART EMERGENCY DEPARTMENT PHYSICIANBronchitis affects the [...] common cause), inhalers, aerosols,steroids or other medications. Ehum-xdx-sroooou coughmedications may also help you feel better. [...] fever or chillsIncreasingcough, shortness of breath or wheezingIncreasingretract ions (especially seen in children)New orincreasing chest pain or pressureNew or increasing swellingin the arms or legsNew or increasing problemswith coughing up bloodPhlegm that looks more green-yellowor smells bad [facility] PATIENT NAME: LALITHA GARCIA [facility] Dr[address] Pettit MEDICAL REC #: [id number], [place] [address] DEPARTMENT CHART EMERGENCY DEPARTMENT PHYSICIANASTHMA ACTION PLAN: [...] with Medicaid or no insurance:Dr Erick Avina601 [facility], [id number] Dr Randa Balesn4909 [facility], [id number] Dr Moses Perez3300 [facility] ([address])[place], [place] [id number] Dr Nikhil Cordoba[address] [place], [place] [id number] REFERRA L [facility] PATIENT NAME: LALITHA GARCIA M[address] [facility] [address] Pettit MEDICAL REC #: [id number], [place] [address] DEPARTMENT CHART EMERGENCY DEPARTMENT [facility] , Address: [address] [place] [address], Please call the above number to schedule a follow-upappointment.[facility], Address: [address] [place] [address], , fax: Please call the above number [...] below indicates consent for Case Managementto contact [facility] providers [place] to meet your ongoing healthcare needs. This willallow forcontinuity of care once you leave theEmergency Department. This exchange of informationwill [facility] PATIENT NAME: LALITHA GARCIA M[address] Ne[address] Pettit MEDICAL REC #: [id number], [place] [address] DEPARTMENT CHART EMERGENCY DEPARTMENT PHYSICIANinclude, but not be limited to, disclosure of yourpatient information and possible release of records. :FlexChartDataEvent Time: 04/24/2017 01:55 DEMOGRAPHICS =======Emergisoft Patient: LALITHA GARCIASex: FDOB: 1995Age: 21 yrAccount No: [id number]: [id number] Date: 00:58 04/24/2017Address: [address]: [place] [address] REGISTRATION =======ED Number: [id number]: Marital Status: SFinancial Class: ARELISDHMO ==TRIAGE ===Priority: 3 - UrgentComplaint: Cough and CongestionStated Complaint: Cough and Congestion, wheezing x 3weeksArrival Date: 04/24/2017 00:58Triage Date: 04/24/2017 00:58Mode of Arrival: *Privately Owned VehicleWC: NLanguage: EnglishTransport: Ambulatory/Walk In BED A01 In: 04/24/2017 01:02:16 04/24/201701:02:16 VDPA [facility] PATIENT NAME: [facility]ITH[facility]ARCIA [facility] [facility] MED[facility] REC #: [id number], [place] [address] DEPARTMENT CHART EMERGENCY DEPARTMENT [id number] (Removed From) Out: 04/24/2017 02:38:26106/24/2016 02:38:26 BSF [facility] ==LDR RN Mike Gary Provider Contact: 04/24/201701:03:13 Pablod:TOMMIE MCKEE Provider Contact: 04/24/201701:04:58 Frantz:MD Katerin Howe Provider Contact: 04/24/201701:07:07 Gio:TOMMIE CASON Provider Contact: 04/24/201702:16:02 BSFEnd: ==TRIAGE HISTORY ==ALLERGIESAllergic To: No Known Allergies - 04/24/2017 01:02VDPACURRENT MEDSName: None 04/24/2017 01:02 VDPAILLNESSIllness: Other Medical adhd 04/24/2017 01:02 VDPAPAST SURGERY HISTSurgery: Tandamp;A -age- 1104/24/2017 01:02 VDPAPAST SOCIAL HISTSocial History: Behavior age appropriate 04/24/201701:02 VDPASocial History: Communicates without zmiiotcoci00/02/2017 01:02 VDPA [facility] PATIENT NAME: LALITHA GARCIA [id number] [facility] [address] Pettit MEDICAL REC #: [id number], [place] [address] DEPARTMENT CHART EMERGENCY DEPARTMENT PHYSICIANSocial History: Alcohol - None 04/24/2017 01:02 VDPASocial History: Recreational Drugs - Nhbzgrjfnb12/02/2017 01:02 VDPASocial History: Smoker- 1/3 PPD 04/24/2017 01:02VDPASocial History: foster child 04/24/2017 01:02 VDPAIMMUNIZATIONSImmuniza tion: Flu Vaccine-no 04/24/2017 01:02 VDPA N URSING ASSESSMENT =====Respiratory Treatment : Respiratory Therapy TreatmentEvent Time: 04/24/2017 01:30 EJPTherapy:Aerosol: Xopenex 1.25mgPre Treatment Auscultation:diminshed: diffusePre Treatment Vital Signs:Note:HR 120RR `8Small Volume Nebulizer Treatment:SVN given with mouthpiecePost Treatment Auscultation:diminshed: diffusePost Treatment Vital Signs:Note:HR 120RR 18Cough Effect:strongSputum Amount:none ======ASSESSMENT NOTES 04/24/2017 01:15 PT C/O COUGH AND CONGESTION ANDWHEEZING WHEN SHE COUGHS. LUNGS CTA. PT A+OX4. RESP EVENAND EASY, NON LABORED. SKIN WARM AND DRY. CALL LIGHT WITHINREACH. 04/24/2017 01:17 KKO106/24/2016 02:15 report received from Casandra Mckee RN04/24/2017 02:15 BSF TR EATMENT == [facility] PATIENT NAME: LALITHA GARCIA M[address] [facility] MEDICAL REC #: [id number], [place] [address] DEPARTMENT CHART EMERGENCY DEPARTMENT NURWBZRXE25/02/2017 01:17 Primary DOC Guide - A. Patient Btuoqei8604/24/2017 01:17 KKOPrimary History Source PatientAvian Exposure - [...] now: NoFamily Violence Clinical Observation All Negative Jlkgmk1604/24/2017 01:17 Staff/ Patient Interaction - Calllight placed within reach. 04/24/2017 01:17 KKO106/24/2016 01:17 Staff/ Patient Interaction - [facility] PATIENT NAME: LALITHA GARCIA [id number] [facility] [address] Pettit MEDICAL REC #: [id number], [place] [address] DEPARTMENT CHART EMERGENCY DEPARTMENT PHYSICIANIntroduced self and assessed patients needs. 04/24/201701:17 KKO106/24/2016 02:16 Hourly Rounding - Rounding 04/24/201702:16 BSFElimination/Toileting NPosition Comfortable YSafe Environment YFall Risk Change N MEDI CATIONS IV= IV Fluid: B 04/24/2017 01:29 04/24/2017 01:30KKOLine [...] # Attempts: 1Notes: catheter intact. dressing applied. === [facility] PATIENT NAME: LALITHA GARCIA [id number] [facility] [address] Pettit MEDICAL REC #: [id number], [place] [address] DEPARTMENT CHART EMERGENCY DEPARTMENT PHYSICIANI AND O VITALS=== VS-ROUTI NE Time: 04/24/2017 00:58B/P: 164/72 - Right Upper [...] KKOVS-ROUTINE Time: 04/24/2017 02:22 Pulse: 116 - AwcztsyAe91: 98 Room Air 04/24/2017 02:27 SNCVS-Pain Time: 04/24/2017 02:22 04/24/2017 02:27SNCVS-GCS Time: 04/24/2017 02:22 04/24/2017 02:27 SNCVS-HT/WT Time: 04/24/2017 02:22 04/24/2017 02:27 SNCVS-Visual Time: 04/24/2017 02:22 04/24/2017 02:27 SNCVS-FHT Time: 04/24/2017 02:22 04/24/2017 02:27SNCVS-Notes Time: 04/24/2017 02:22 04/24/2017 02:27 SNC [facility] PATIENT NAME: LALITHA GARCIA20 [facility] [address] Pettit MEDICAL REC #: [id number], [place] [address] DEPARTMENT CHART EMERGENCY DEPARTMENT PHYSICIANVS-ROUTINE Time: 04/24/2017 [...] Time: 04/24/2017 02:37 MAP 104 04/24/201702:37 BSF OR DERS D ischarge patient 04/24/2017 02:25N/AOrdered: 04/24/2017 02:12 By . OtherReviewed: 04/24/2017 02:25 By . Other*Other Nurse: recheck vitals after ffmgmj4804/24/2017 02:27N/AOrdered: 04/24/2017 01:40 By Mike GaryCompleted Time: [...] Mike GaryCompleted Time: 04/24/2017 01:52 By Mike Talleyed Time: 04/24/2017 01:29 KKO [facility] PATIENT NAME: LALITHA GARCIA [id number] [facility] [address] Pettit MEDICAL REC #: [id number], [place] [address] DEPARTMENT CHART EMERGENCY DEPARTMENT PHYSICIANResults Time: 04/24/2017 [...] Time: 04/24/2017 01:29 KKOResults Time: 04/24/2017 01:59 DISCHARGE ====Diagnosis: acute bronchitis with early right sidedpneumonia 04/24/2017 02:22Disposition: Time: 04/24/2017 02:12Discharge Time: 04/24/2017 02:38Type: DischargeCondition: Stable for admission/discharge/trans ferafter emergency evaluation/treatment Category: *NOTAPPLICABLEReferral: 04/24/2017 02:22Admit Physician: . Other PRESCRIPTIONS ======== [facility] PATIENT NAME: LALITHA GARCIA [id number] [facility] [address] Pettit MEDICAL REC #: [id number], [place] [address] DEPARTMENT CHART EMERGENCY DEPARTMENT PHYSICIANZithromax 250 mg tablet 04/24/2017 02:12SI qd for 5 daysDispense: 6 / Refills:prednisone 20 mg tablet 04/24/2017 02:12SI bid for 5 daysDispense: 10 / Refills:albuterol 90 mcg/actuation aerosol inhaler 04/24/2017 02:12SI pu q4-6 hrs as needed wheezing/cough for 7 daysDispense: 1 / Refills: ===CHARGES =====0.9% NS 1000cc bag QTY @ 1 04/24/2017 01:30 KKOAuto Generated Charge =SIGNATURE =====Katerin MCKEE RN KKO [facility] PATIENT NAME: [facility] MEDICAL REC #: [id number], [place] [address] DEPARTMENT CHART EMERGENCY DEPARTMENT PHYSICIAN Normal [facility] ED Documentation This is a preliminar y report only, as the practitioner review and authentication has not occurred. Normal [facility] HCGon 04-24-2017 HCG Qn Negative Normal NEGATIVE [facility] Comment on above: Order Comment: Campu s: M Performed By: #### L [id number] ####[facility] [id number] [place], [place] [address]Dy# [phone] LACTATE BLOODon 04-24-2017 LACTATE BLOOD 1.37 MMOL/L Normal 0.40-2.00 [facility] Comment on above: Order Comment: Campu s: M Performed By: #### L [id number] ####[facility] [id number] [place], [place] [address]Wo# [phone] Vital Signs Date Time Vital Sign Value Performing Clinician Facility 03-21-2025 15:10-0400 Body temperature 97.2 [degF] No Primary Care Physician [facility] 03-21-2025 15:10-0400 Diastolic blood pressure 67 mm[Hg] No Primary Care Physician [facility] 03-21-2025 15:10-0400 Heart rate 88 /min No Primary Care Physician [facility] 03-21-2025 15:10-0400 Respiratory rate 16 /min No Primary Care Physician [facility] 03-21-2025 15:10-0400 SaO2% (BldA) [Mass fraction] 99 % No Primary Care Physician [facility] 03-21-2025 15:10-0400 Systolic blood pressure 133 mm[Hg] No Primary Care Physician [facility] 03-21-2025 11:05-0400 Body height 172.72 cm No Primary Care Physician [facility] 03-21-2025 11:05-0400 Body mass index (BMI) [Ratio] 64.7 kg/m2 No Primary Care Physician [facility] 03-21-2025 11:05-0400 Body weight 193.23 kg No Primary Care Physician [facility] 01-22-2025 23:29-0400 Body temperature 97.2 [degF] No Primary Care Physician [facility] 01-22-2025 23:29-0400 Diastolic blood pressure 70 mm[Hg] No Primary Care Physician [facility] 01-22-2025 23:29-0400 Heart rate 71 /min No Primary Care Physician [facility] 01-22-2025 23:29-0400 Respiratory rate 16 /min No Primary Care Physician [facility] 01-22-2025 23:29-0400 SaO2% (BldA) [Mass fraction] 100 % No Primary Care Physician [facility] 01-22-2025 23:29-0400 Systolic blood pressure 141 mm[Hg] No Primary Care Physician [facility] 01-22-2025 21:45-0400 Body height 172.72 cm No Primary Care Physician [facility] 01-22-2025 21:45-0400 Body mass index (BMI) [Ratio] 69.9 kg/m2 No Primary Care Physician [facility] 01-22-2025 21:45-0400 Body weight 208.87 kg No Primary Care Physician [facility] 12-08-2024 10:48-0400 Body height 172.7 cm Alber Wolff MD Work Phone: [facility] Comment on above: per pt 12-08-2024 10:48-0400 Body mass index (BMI) [Ratio] 60.57 kg/m2 Alber Wolff MD Work Phone: [facility] 12-08-2024 10:48-0400 Body temperature 98.71 [degF] Alber Wolff MD Work Phone: [facility] 12-08-2024 10:48-0400 Body weight 180.7 kg Alber Wolff MD Work Phone: [facility] 12-08-2024 10:48-0400 Diastolic blood pressure 99 mm[Hg] Alber Wolff MD Work Phone: [facility] 12-08-2024 10:48-0400 Heart rate 116 /min Alber Wolff MD Work Phone: [facility] 12-08-2024 10:48-0400 Systolic blood pressure 147 mm[Hg] Alber Wolff MD Work Phone: [facility] 11-02-2024 11:42-0400 Body mass index (BMI) [Ratio] 57.32 kg/m2 Shahnaz Marin MD Work Phone: [facility] 11-02-2024 11:42-0400 Body weight 171.01 kg Shahnaz Marin MD Work Phone: [facility] 11-02-2024 11:42-0400 Diastolic blood pressure 72 mm[Hg] Shahnaz Marin MD Work Phone: [facility] 11-02-2024 11:42-0400 Systolic blood pressure 130 mm[Hg] Shahnaz Marin MD Work Phone: [facility] 07-09-2024 14:04-0500 Body height 172.7 cm Josey Rsuh APRN.CNM Work Phone: [facility] 07-09-2024 14:04-0500 Body mass index (BMI) [Ratio] 56.71 kg/m2 Josey Rush APRN.CNM Work Phone: [facility] 07-09-2024 14:04-0500 Body weight 169.19 kg Josey Rush APRN.CNM Work Phone: [facility] 07-09-2024 14:04-0500 Diastolic blood pressure 78 mm[Hg] Josey Rush APRN.CNM Work Phone: [facility] 07-09-2024 14:04-0500 Systolic blood pressure 128 mm[Hg] Josey Rush APRN.CNM Work Phone: [facility] 05-14-2024 09:49-0500 Body height 175 cm Rin Morgan MD Work Phone: [facility] 05-14-2024 09:49-0500 Body mass index (BMI) [Ratio] 53.17 kg/m2 Rin Morgan MD Work Phone: [facility] 05-14-2024 09:49-0500 Body weight 162.84 kg Rin Morgan MD Work Phone: [facility] 09-23-2022 20:16-0400 Diastolic Blood Pressure Non-Invasive 86 1 NAE ESPINOKA DO [facility] 09-23-2022 20:16-0400 Heart rate 78 /min NAE DURESKA DO [facility] 09-23-2022 20:16-0400 Respiratory rate 18 /min NAE SRINIVASKA DO [facility] 09-23-2022 20:16-0400 Systolic Blood Pressure Non-Invasive 132 1 NAESPENCER PRESCOTTESKA DO [facility] 09-23-2022 17:40-0400 Diastolic Blood Pressure Non-Invasive 88 1 NAE DURESKA DO [facility] 09-23-2022 17:40-0400 Heart rate 79 /min NAE DURESKA DO [facility] 09-23-2022 17:40-0400 Respiratory rate 18 /min NAE KENYONESKA DO [facility] 09-23-2022 17:40-0400 Systolic Blood Pressure Non-Invasive 140 1 NAE DURESKA DO [facility] 09-23-2022 15:34-0400 Body weight 135.5 kg NAE DURESKA DO [facility] 09-23-2022 15:34-0400 Diastolic Blood Pressure Non-Invasive 82 1 NAE DURESKA DO [facility] 09-23-2022 15:34-0400 Heart rate 125 /min NAE ROBERTO DO [facility] 09-23-2022 15:34-0400 Respiratory rate 18 /min NAE ROBERTO DO [facility] 09-23-2022 15:34-0400 Systolic Blood Pressure Non-Invasive 143 1 NAE ROBERTO DO [facility] 03-12-2022 12:02-0400 Body temperature 98.06 [degF] KATERIN ELAM MD [facility] 03-12-2022 12:02-0400 Diastolic blood pressure 69 mm[Hg] KATERIN ELAM MD [facility] 03-12-2022 12:02-0400 Heart rate 99 /min KATERIN ELAM MD [facility] 03-12-2022 12:02-0400 Mean blood pressure 95 mm[Hg] KATERIN ELAM MD [facility] 03-12-2022 12:02-0400 Respiratory rate 18 /min KATERIN ELAM MD [facility] 03-12-2022 12:02-0400 Systolic blood pressure 148 mm[Hg] KATERIN ELAM MD [facility] 03-12-2022 07:27-0400 Body temperature 98.42 [degF] KATERIN ELAM MD [facility] 03-12-2022 07:27-0400 Diastolic blood pressure 90 mm[Hg] KATERIN ELAM MD [facility] 03-12-2022 07:27-0400 Heart rate 92 /min KATERIN ELAM MD [facility] 03-12-2022 07:27-0400 Mean blood pressure 107 mm[Hg] KATERIN ELAM MD [facility] 03-12-2022 07:27-0400 Respiratory rate 18 /min KATERIN ELAM MD [facility] 03-12-2022 07:27-0400 Systolic blood pressure 141 mm[Hg] KATERIN ELAM MD [facility] 03-12-2022 03:21-0400 Body temperature 98.6 [degF] KATERIN ELAM MD [facility] 03-12-2022 03:21-0400 Diastolic blood pressure 74 mm[Hg] KATERIN ELAM MD [facility] 03-12-2022 03:21-0400 Heart rate 91 /min KATERIN ELAM MD [facility] 03-12-2022 03:21-0400 Mean blood pressure 94 mm[Hg] KATERIN ELAM MD [facility] 03-12-2022 03:21-0400 Respiratory rate 18 /min KATERIN ELAM MD [facility] 03-12-2022 03:21-0400 Systolic blood pressure 133 mm[Hg] KATERIN ELAM MD [facility] 03-11-2022 17:52-0400 Body height 172.7 cm KATERIN ELAM MD [facility] 03-11-2022 17:52-0400 Body weight 131.8 kg KATERIN ELAM MD [facility] 03-11-2022 17:52-0400 Body weight 44.19 kg/m2 KATERIN ELAM MD [facility] 03-11-2022 13:43-0400 Body height 172.7 cm KATERIN ELAM MD [facility] 03-11-2022 13:43-0400 Body weight 131.8 kg KATERIN ELAM MD [facility] 03-11-2022 13:43-0400 Body weight 44.19 kg/m2 KATERIN ELAM MD [facility] Encounters Encounter Date Encounter Type Care Provider Facility Start: 04-27-2025 End: 04-27-2025 ambulatory AMEE DE LA PAZ Facility:[facility] Start: 04-20-2025 End: 04-20-2025 ambulatory AMEE DE LA PAZ Facility:[facility] Start: 04-11-2025 End: 04-11-2025 ambulatory JULIA BASURTO Facility:[facility] Start: 04-05-2025 End: 04-05-2025 ambulatory MOLLY FARRIS Facility:[facility] Start: 03-29-2025 End: 03-29-2025 ambulatory MOLLY FARRIS Facility:[facility] Start: 03-25-2025 End: 03-25-2025 ambulatory GWEN ZHANG Facility:[facility] Start: 03-24-2025 End: 03-24-2025 ambulatory ALBER WOLFF Facility:[facility] Start: 03-21-2025 End: 03-21-2025 Emergency department patient visit No Primary Care Physician -Emergency Department Work Phone: Start: 02-18-2025 End: 02-18-2025 Telephone encounter Robin Casey MD Work Phone: Internal Medicine Comment on above: Missed Appointment Start: 02-17-2025 End: 02-17-2025 [facility] Start: 02-02-2025 ambulatory No Primary Car e Physician Facility:[facility] Start: 01-22-2025 End: 01-22-2025 Emergency department patient visit No Primary Care Physician -Emergency Department Work Phone: Start: 01-22-2025 End: 01-22-2025 ambulatory Vanessa Israel RN Work Phone: NURSE TAILING MACHINE OPERATOR Comment on above: Foot Swelling Start: 12-08-2024 End: 12-08-2024 ambulatory ALBER WOLFF Facility:[facility] Start: 12-08-2024 End: 12-08-2024 Office outpatient new 45 minutes Alber Wolff MD Work Phone: Neurology [facility] Comment on above: Intractable migraine without aura and without status migrainosus (Primary Dx); DARWIN (obstructive sleep apnea) Start: 11-16-2024 End: 11-17-2024 Emergency department patient visit [facility] Facility:[facility] Start: 11-16-2024 End: 11-16-2024 ambulatory Wendie Francois RN NURSE TAILING MACHINE OPERATOR Comment on above: Leg Pain Start: 11-02-2024 End: 11-02-2024 Patient encounter procedure Shahnaz Marin MD Work Phone: OB/Gynecology Comment on above: Encounter for IUD in sertion (Primary Dx) Start: 11-02-2024 End: 11-02-2024 ambulatory SHAHNAZ MARIN Facility:[facility] Start: 10-21-2024 End: 10-21-2024 Telephone encounter Mariana Luna MD Work Phone: OB/Gynecology Comment on above: Abnormal uterine ble eding; IUD Start: 10-08-2024 End: 10-08-2024 Telemedicine consultation with patient Shahnaz Marin MD Work Phone: OB/Gynecology Start: 10-08-2024 End: 10-08-2024 ambulatory Shahnaz Marin MD Work Phone: OB/Gynecology Comment on above: Abnormal uterine ble eding (AUB) (Primary Dx) Start: 10-08-2024 End: 10-08-2024 Emergency department patient visit Facility:[facility] Start: 09-21-2024 End: 09-21-2024 Admission to same [...] General Surgery Start: 09-15-2024 End: 09-15-2024 ambulatory RINJessica MORGAN Facility:[facility] Start: 09-11-2024 End: 09-11-2024 Emergency department patient visit Facility:[facility] Start: 09-09-2024 End: 09-09-2024 Emergency department patient visit BRIT KELSEY Facility:[facility] Start: 09-09-2024 End: 09-09-2024 ambulatory Kena Cross RN NURSE TAILING MACHINE OPERATOR Comment on above: Headache Start: 09-07-2024 End: 09-07-2024 ambulatory RIN MORGAN Facility:[facility] Start: 09-07-2024 End: 09-07-2024 Office outpatient visit 40 minutes Rin Morgan MD Work Phone: General Surgery Comment on above: Class 3 severe obesi ty with body mass index (BMI) of 50.0 to 59.9 in adult, unspecified obesity type, unspecified whether serious comorbidity present (HCC) (Primary Dx) Start: 09-02-2024 End: 09-02-2024 ambulatory RINJessica MORGAN Facility:[facility] Start: 07-15-2024 End: 07-15-2024 Patient encounter procedure [employer] [facility] [employer] OB/Gynecology Start: 07-15-2024 End: 07-15-2024 ambulatory Director Of Global 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 [employer] Work Phone: OB/Gynecology [...] Abnormal uterine bleeding (AUB) Start: 05-31-2024 ambulatory No Primary Car e Physician Facility:[facility] Start: 05-14-2024 End: 05-14-2024 ambulatory RIN MORGAN Facility:[facility] Start: 05-14-2024 End: 05-14-2024 Office outpatient new [...] Start: 05-07-2024 End: 05-07-2024 ambulatory GWEN ZHANG Facility:[facility] Start: 05-07-2024 End: 05-07-2024 Telemedicine consultation with patient Gwen Zhang PhD Work Phone: General Surgery BMI PSYL Start: 04-30-2024 ambulatory GWEN ZHANG Facili ty:[facility] Start: 04-30-2024 End: 04-30-2024 Admission to same day surgery center Gwen Zhang PhD Work Phone: General Surgery BMI PSYL Comment on above: NO SHOW (Primary Dx) Start: 04-30-2024 End: 04-30-2024 Telemedicine consultation with patient Gwen Zhang PhD Work Phone: General Surgery BMI PSYL Start: 04-26-2024 ambulatory [facility] Facility :[facility] Start: 04-23-2024 End: 04-23-2024 ambulatory [facility] Facility:[facility] Start: 12-27-2023 Emergency department patient visit Facility:[facility] Start: 09-23-2022 End: 09-23-2022 Emergency department patient visit NONE PHYSICIAN Facility:A Start: 09-23-2022 End: 09-23-2022 Emergency department patient visit NAE ROBERTO DO [facility] Start: 04-02-2022 End: 04-07-2022 Evaluation and management of inpatient NONE PHYSICIAN Facility:A Start: 03-28-2022 End: 03-28-[address] OLGA ALVAREZ MD Facility:A Start: 03-19-2022 End: 03-19-2022 ambulatory ERIN GIRON MD Facility:A Start: 03-18-2022 End: 03-18-2022 ambulatory ERIN GIRON MD Facility:A Start: 03-14-2022 End: 03-19-2022 ambulatory KELLY NERI DO Facility:[facility] Obstetrics Start: 03-11-2022 End: 03-12-2022 ambulatory KATERIN ELAM MD Facility:A Start: 03-11-2022 End: 03-12-2022 Observation KATERIN ELAM MD 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 Start: 03-09-2018 Emergency department patient visit Jenni Marina Facility:[facility] Start: 09-16-2017 Patient encounter Jenni Marina Facility:[facility] Start: 04-24-2017 Emergency department patient visit Jenni Marina Facility:[facility] Procedures Date Procedure Procedure Detail Performing Clinician Start: 03-21-2025 Estimated creatinine clearance No Primary Care Physician Start: 03-21-2025 CT angiography of ch est with contrast No Primary Care Physician Start: 01-22-2025 Estimated creatinine clearance No Primary Care Physician Start: 11-02-2024 UA DIP,URINE HCG (POC) Shahnaz Marin MD Work Phone: Start: 07-15-2024 Us pelvic nonobstetr ic real-time image complete Josey Rush APRN.CNM Work Phone: Start: 09-25-2021 Urine culture Tonsillectomy KATERIN Singh Plan of Treatment Date Care Activity Detail Author Start: 03-04-2032 Urine microalbumin profile DTaP,Tdap,Td Vaccine (8 - Td or Tdap) [facility] Start: 03-24-2025 End: 03-24-2025 Patient encounter procedure 03/24/2025 9:30 PM EDT Office Visit Neurology [address] [place] [address] Main, Psg Neur [address] [place] [address] Dx: DARWIN (obstructive sleep apnea) [G47.33] Neurology Comment on above: Dx: DARWIN (obstructive sleep apnea) [G47.33] Start: 03-21-2025 [facility] Start: 03-10-2025 End: 03-10-2025 Patient encounter procedure 03/10/2025 10:15 AM EDT Office Visit Neurology [facility] [address] [place] [address] [place] [address] [place] [address] Neurology [facility] Start: 02-21-2025 Influenza vaccination [facility] Start: 01-22-2025 [facility] Start: 01-22-2025 US.doppler Lower extremity vein [facility] Start: 01-17-2025 End: 01-17-2025 Patient encounter procedure 01/17/2025 4:30 PM EDT Office Visit General Surgery [address] [place] [address] Debbie Horner MD [address] [address] discuss ozempic General Surgery Comment on above: discuss ozempic Start: 12-08-2024 End: 12-08-2024 Patient encounter procedure 12/08/2024 10:40 AM EDT Office Visit Neurology [facility] [address] [place] [address] [place] [address] [place] [address] Er Follow up Neurology Headache [facility] Comment on above: Er Follow up Start: 11-25-2024 End: 11-25-2024 Admission to same day surgery center 11/25/2024 2:00 PM EDT [facility] [address] [id number] Mar Ndiaye, [employer] ADMINISTRATOR.[facility] [address] [place] [address] Patient would like to try ozempic General Surgery Comment on above: Patient would like t o try ozempic Start: 11-23-2024 End: 11-23-2024 Admission to same day surgery center 11/23/2024 1:00 PM EDT [facility] [address] [id number] Rin Morgan MD [address] [place] [address] Patient would like to try ozempic General Surgery Comment on above: Patient would like t o try ozempic Start: 11-03-2024 End: 11-03-2024 Patient encounter procedure 11/03/2024 3:15 PM EDT Office Visit [facility] [address] [place] [address] Cari Albert, [employer] ADMINISTRATOR.[facility] [address] [place] [address] Ovarian Cyst [facility] Comment on above: Ovarian Cyst Start: 11-02-2024 End: 11-02-2024 Patient encounter procedure 11/02/2024 11:30 AM EDT Office Visit OB/Gynecology [address] [place] [id number] Shahnaz Marin MD [address] [place] [address] IUD insertion OB/Gynecology Comment on above: IUD insertion Start: 09-22-2024 End: 09-22-2024 Patient encounter procedure 09/22/2024 2:45 PM EDT Office Visit OB/Gynecology [address] [place] [id number] Zia Lang APRN.LDR RN [address] 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 [facility] [address] [place] [address] Ovarian cyst, right [N83.201] OB/Gynecology Comment on above: Ovarian cyst, right [N83.201] Start: 07-09-2024 End: 10-08-2024 Insulin [Units/volume] in Serum or Plasma INSULIN, TOTAL, SERUM Lab Routine Abnormal uterine bleeding (AUB) Expected: 07/09/2024, Expires: 10/08/2024 [facility] Comment on above: Expected: 07/09/2024 , Expires: 10/08/2024 Start: 07-09-2024 End: 10-08-2024 Lipid 1996 panel - Serum or Plasma LIPID PANEL BASIC Lab Routine Abnormal uterine bleeding (AUB) Expected: 07/09/2024, Expires: 10/08/2024 [facility] Comment on above: Expected: 07/09/2024 , Expires: 10/08/2024 Start: 07-09-2024 End: 10-08-2024 TESTOSTERONE, FREE AND TOTAL, BY EQUILIBRIUM ULTRAFILTRATION MASS SPECTROMETRY TESTOSTERONE, FREE AND TOTAL, BY EQUILIBRIUM ULTRAFILTRATION MASS SPECTROMETRY Lab Routine Abnormal uterine bleeding (AUB) Expected: 07/09/2024, Expires: 10/08/2024 [facility] Comment on above: Expected: 07/09/2024 , Expires: 10/08/2024 Start: 07-09-2024 End: 07-09-2025 US Pelvis PELVIC US [facility] Imaging Routine Ovarian cyst, right Expected: 07/09/2024, Expires: 07/09/2025 [facility] Work Phone: Comment on above: Expected: 07/09/2024 , Expires: 07/09/2025 Start: 05-14-2024 End: 05-14-2025 HOME SLEEP APNEA TEST (HSAT) HOME SLEEP APNEA TEST (HSAT) Procedures Routine Class 3 severe obesity with body mass index (BMI) of 50.0 to 59.9 in adult, unspecified obesity type, unspecified whether serious comorbidity present (HCC) Expected: 05/14/2024, Expires: 05/14/2025 [facility] Work Phone: Comment on above: Expected: 05/14/2024 , Expires: 05/14/2025 Start: 05-14-2024 End: 05-14-2024 Admission to same day surgery center 05/14/2024 9:00 AM [facility] [address] [id number] Rin Morgan MD [address] [id number] Non-surgical interested in injections General Surgery Comment on above: Non-surgical interes shiraz in injections Start: 02-22-2024 Covid-19 Vaccine ( season) Covid-19 Vaccine ( season) [facility] Start: 02-22-2024 Influenza vaccination Influenza Vacc ine (#1) [facility] Start: 09-16-2018 Pneumococcal vaccination Pneum ococcal Vaccine (2 of 2 - PCV) [facility] Start: 2017 Screening for malign ant neoplasm of cervix Cervical Cancer Screening [facility] Start: 2014 Annual PCP Team 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 elida Disease Visit Annual PCP Team Chronic Disease Visit [facility] Start: 2014 Anxiety Screening Anxiety Screening [facility] Start: 2014 Depression Screening Depression Scre ening [facility] Start: 2014 Hepatitis C screening Hepatitis C Sc reening [facility] Start: 2014 HIV screening HIV Screening [facility] Start: 2014 Spirometry Spirometry [facility] Insertion intrauteri ne device iud INSERT INTRAUTERINE DEVICE Procedures Routine Encounter for IUD insertion Ordered: 11/02/2024 [facility] Work Phone: Comment on above: Ordered: 11/02/2024 End: 01-07-2026 PAP TITRATION PSG (CPAP, BIPAP, ASV) PAP TITRATION PSG (CPAP, BIPAP, ASV) Procedures Routine DARWIN (obstructive sleep apnea) 1 Occurrences starting 12/08/2024 until 01/07/2026 [facility] Work Phone: Comment on above: 1 Occurrences starti ng 12/08/2024 until 01/07/2026 Patient Education ED Peripheral Edema, Unilateral [facility] Work Phone: Immunizations Immunization Date Immunization Notes Care Provider Fa cility 04-05-2023 RHO(D) immune globul in- IV or IM Gwen Zhang PhD Work Phone: [facility] 03-04-2022 tetanus toxoid, redu elly diphtheria toxoid, and acellular pertussis vaccine, adsorbed KATERIN ELAM MD [facility] 04-21-2018 influenza virus vacc ine, unspecified formulation KATERIN ELAM MD [facility] 09-16-2017 influenza virus vacc ine, unspecified formulation KATERIN ELAM MD [facility] 09-16-2017 pneumococcal polysaccharide vaccine, 23 valent KATERIN ELAM MD [facility] 03-10-2014 influenza virus vacc ine, unspecified formulation KATERIN ELAM MD [facility] 03-13-2013 influenza virus vacc ine, unspecified formulation KATERIN ELAM MD [facility] 12-05-2012 meningococcal polysaccharide (groups A, C, Y and W-135) diphtheria toxoid conjugate vaccine (MCV4P) KATERIN ELAM MD [facility] 03-05-2012 influenza virus vacc ine, unspecified formulation KATERIN ELAM MD [facility] 09-09-2011 tetanus toxoid, redu elly diphtheria toxoid, and acellular pertussis vaccine, adsorbed KATERIN ELAM MD [facility] 04-18-2011 influenza virus vacc ine, unspecified formulation KATERIN ELAM MD [facility] 04-16-2010 influenza virus vacc ine, unspecified formulation KATERIN ELAM MD [facility] 04-05-2009 influenza virus vacc ine, unspecified formulation KATERIN ELAM MD [facility] 07-11-2008 Human Papillomavirus Ken ELAM MD [facility] 04-09-2008 influenza virus vacc ine, unspecified formulation KATERIN ELAM MD [facility] 04-09-2008 varicella virus vaccine MARQUES ELAM MD [facility] 02-20-2008 Human Papillomavirus Ken ELAM MD [facility] 01-07-2008 meningococcal polysaccharide (groups A, C, Y and W-135) diphtheria toxoid conjugate vaccine (MCV4P) KATERIN ELAM MD [facility] 12-01-2007 Human Papillomavirus Quadval KATERIN ELAM MD [facility] 04-25-2007 influenza virus vacc ine, unspecified formulation KATERIN ELAM MD [facility] 08-18-2006 hepatitis A vaccine, pediatric dosage, unspecified formulation KATERIN ELAM MD [facility] 12-09-2005 hepatitis A vaccine, pediatric dosage, unspecified formulation KATERIN ELAM MD [facility] 12-01-2000 measles/mumps/rubell a virus vaccine KATERIN ELAM MD [facility] 02-28-1998 measles/mumps/rubell a virus vaccine KATERIN ELAM MD [facility] 11-28-1997 varicella virus vaccine MARQUES ELAM MD [facility] 08-18-1997 hepatitis B pediatri c vaccine KATERIN ELAM MD [facility] 1996 hepatitis B pediatri c vaccine KATERIN ELAM MD [facility] 1996 hepatitis B pediatri c vaccine KATERIN ELAM MD [facility] Payers Date Payer Category Payer Self-pay [id number] 2022 Medicaid [id number] 2021 Unknown [id number] 2017 Unknown [id number] 1996 Unknown [id number] 2.16. [id number] 1996 Unknown [id number] 2.16.8 [id number] 1996 Unknown [id number] 2.16.8 [id number] 1996 Unknown [id number] 2.16.8 [id number] 1996 Unknown [id number] 2.16.8 [id number] 1996 Unknown [id number] 2.16.8 40.1.028845.3.579.2.627 1996 Unknown [id number] 2.16.8 40.1.333648.3.579.2.627 1996 Unknown [id number] 2.16.8 40.1.304512.3.579.2.627 1996 Unknown [id number] 2.16.8 [id number] Self-pay [id number] Unknown [id number] 2.16.8 [id number] Unknown [id number] 2.16.8 [id number] Unknown [id number] 2.16.8 [id number] Unknown [id number] 2.16.8 [id number] Unknown [id number] 2.16.8 [id number] Unknown [id number] 2.16.8 [id number] Unknown [id number] 2.16.8 [id number] Social History Date Type Detail Facility Tobacco smoking stat [facility] Unknown if ever smoked [facility] Work Phone: Start: 1995 Sex Assigned At Female [facility] Work Phone: Start: 07-09-2024 End: 03-21-2025 Tobacco smoking status Smokes tobacco daily (finding) [facility] Sex Assigned At Sex [facility] Start: 03-28-2022 Tobacco smoking status Light tobacco smoker (finding) [facility] Tobacco smoking status Ex-smoker (finding ) [facility] Tobacco smoking stat [facility] Tobacco smoking consumption unknown [facility] Start: 04-30-2024 End: 09-07-2024 History of Social function [facility] Start: 04-30-2024 End: 09-07-2024 Patient Health Questionnaire 2 item (PHQ-2) [Reported] [facility] Start: 05-11-2021 Adult Depression Screening Assessment 0 [facility] (I/We) worried wheth er (my/our) food would run out before (I/we) got money to buy more. Never true [facility] Start: 1995 Sex assigned at Not on file [facility] History of tobacco use Cigarette Smoker C [facility] Start: 07-09-2024 End: 10-08-2024 Tobacco use and exposure Smokeless tobacco non-user [facility] Start: 07-09-2024 End: 12-08-2024 Alcoholic beverage intake [facility] Start: 07-14-2024 Gender identity Identifies as female gender (finding) [facility] Start: 07-14-2024 Sexual orientation Heterosexual (finding) [facility] Goals Date Patient Goal Desired Activity /State Personal health goal Functional Status Date Assessment Result Facility 09-23-2022 Functional Status Independent [facility] 03-12-2022 Functional Status Up to chair 1 [facility] 03-12-2022 Functional Status [facility] 03-12-2022 Functional Status bilateral knee high [facility] 03-11-2022 Functional Status Home independently [facility] Mental Status Date Assessment Result Facility 01-22-2025 Cognitive function Level Of Cons ciousness Awake;Alert;Appropriate;Follow s Commands [facility] Work Phone: 09-23-2022 Mental Status Orientation Oriented x 4 [facility] 09-23-2022 [facility] 09-25-2021 to 04-20-2025 Note Date & Type Note Facility 04-20-2025 Note HNO ID: [id number] Author: AMEE DE LA PAZ, PhD Service: ? Author Type: Student Type: Progress Notes Filed: 04/25/2025 09:42 Note Text: Attestation signed by Amee De La Paz, PhD at 04/25/2025 9:42 AM Supervision comments: Student clinician/graduate level-psychology trainee, Laura Maher, co-facilitated this group. I was available to trainee in person, reviewed care, and provided supervision for all care. The note was written by the supervisee under my direct supervision and all care discussed. Amee De La Paz, Ph.D. Licensed Clinical Psychologist ([id number]) [facility] [place] [address] / [address] [address] Lalitha Garcia [phone] 04/20/2025 [facility] [place] [address] Binge Eating Group Cost Center: 3BO CPT: 5849926 VIRTUAL VISIT GROUP PSYCHOTHERAPY 3:00 PM - 4:30 PM Prior to initiating the virtual visit, I have communicated my name, supervisee/trainee status and the name and active licensure of supervising clinical psychologist, Amee De La Paz, PhD. The patient signed the Informed Consent for Psychological Evaluation AND Care Form at this visit. The limits of confidentiality and supervisory procedures that may pertain with any given case were discussed with the patient. She was given a chance to ask questions and provided with a copy of the consent form via CEINT. Collateral Parties Present: Amee De La Paz, PhD, supervising psychologist Plan in case of unexpected disconnection: provider will attempt to contact patient at their preferred phone number ([phone]) or via email ([email or web address]). Plan in case of emergency: Go to emergency room or call 911 Platform: om for [facility] Address of patient during visit: [address] [place] [id number] [place] Session 1: Developing a Regular Eating Pattern Patients attended the first session of a four week cognitive behavioral intervention for binge eating disorder. Patients were reminded of the limits of confidentiality in the group setting and agreed to hold in confidence all matters discussed in the group. Patients introduced themselves and discussed their motivation for bariatric surgery and their relationship with food. Discussed symptoms of eating disorders including binge eating, night eating and graze eating, in addition to tools to help manage different eating patterns. Discussed importance of self-monitoring and reviewed how to keep accurate self-monitoring records. Ms. Garcia was an active participant in the session. She did verbalize an understanding of the material presented. Patient does appear to be an appropriate group candidate. Patient is seeking RYGB and is motivated by learning how to overcome overeating and to develop healthier habits. 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 S.M.A.R.T. Goal (session 1): - Keep sodium under 1000 mg/day for 3 days/week Objective: Measure Pre-Group Response BES 17 (on 04/04/2025) (minimal binge eating) PHQ-9 0 (no depression) CHARLINE-7 0 (no anxiety) Assessment: per evaluating BMI psychologist, Dr. Farris Moderate binge-eating disorder Generalized anxiety disorder Nicotine dependence, cigarettes, uncomplicated Other specified eating disorder Panic disorder without agoraphobia Autism spectrum disorder (HCC) Plan: RTC 1 wk grp; Review food diaries, emotional eating, cognitive and behavioral strategies and self -image. Laura Maher MA student clinician/graduate level-psychology trainee [facility] [place] [facility] 04-11-2025 Note HNO ID: [id number] Author: JULIA BASURTO, PhD Service: ? Author Type: Physician Type: Progress Notes Filed: 04/11/2025 23:22 Note Text: Lalitha Garcia [phone] [facility] SUBSTANCE RISK REDUCTION (SRR) INTERVENTION SESSION TIME: 1:00 PM to 2:30 PM 04/11/2025 CPT CODE: [id number] Virtual GROUP PSYCHOTHERAPY BILLING CODE: [id number]/Rafael I have communicated my name and active licensure. The patient's identity and physical location were verified at the time of this visit. Either the patient or their legal telecommunications sales representative has been informed of the risks and benefits of -- and alternatives to -- treatment through a remote evaluation/session and consents to proceed with the group intervention remotely. Platform: Zoom for Healthcare Patients were reminded of the limits of confidentiality in the group setting and agreed to hold in confidence all matters discussed in the group. Subjective: Lalitha Garcia participated in substance risk reduction intervention discussing the effects of alcohol, tobacco, marijuana, and other substances on their bariatric surgery. The concept of addiction transfer was discussed along with warning signs of addiction and relapse prevention. Coping strategies for stress management as well as strategies for avoiding triggers were discussed briefly today. According to the AUDIT-C screener below, she is currently not drinking alcohol. AUDIT-C = 0. At her initial psychosocial evaluation, she endorsed drinking 1-2 shots, less than monthly. She endorsed current nicotine use; she has been cutting down on her own and is currently smoking 1 cigarette every 6 hours. At her initial psychosocial evaluation, the patient endorsed quitting cannabis use in August because it made her anxiety worse. The patient noted motivation to avoid substances as other: being healthy for her child. Objective: Lalitha Garcia paid attention during the intervention, and made good contributions to the discussion. I spoke to her after the group to answer additional questions, as her WiFi was cutting in and out near the end. Pt stated she completed sleep study and said it was the best sleep of my life. We spoke about coping skills in general, and what she could do instead of smoking besides eating. Patient Data Alcohol Use Disorders Identification Test - Short Version (AUDIT-C) 05/06/2024 03/23/2025 04/10/2025 AUDIT-C TOTAL SCORE 0 0 0 How often do you have a drink containing alcohol? Never Never Never How many drinks containing alcohol do you have on a typical day when you are drinking? 0 - 2 0 - 2 0 - 2 How often do you have four or more drinks on one occasion? Never Never Never In men, a score of 4 or more is considered positive; in women, a score of 3 or more is considered positive. Generally, the higher the AUDIT-C score, the more likely it is that the patient's drinking is affecting his/her health and safety Generalized Anxiety Disorder Scale (CHARLINE-7) 03/23/2025 04/04/2025 04/10/2025 CHARLINE - 7 SCORES Score 5 2 0 (0-4) minimal anxiety, (5-9) mild anxiety, (10-14) moderate anxiety, (15-21) severe anxiety Patient Health Questionnaire (PHQ-9) 04/04/2025 04/04/2025 04/10/2025 PHQ-9 Score 4 3 2 (0-4) minimal depression, (5-9) mild depression, (10-14) moderate depression, (15-19) moderately severe depression, (20-27) severe depression The patient has the following risk factors for developing AUD post-bariatric surgery: [x] younger age [x] Any or regular use (2+ drinks/wk) [] hx STEPHANIE or abuse [] male [] hx binge drinking* [] lower sense of belonging [x] RYGB [] family hx alcohol abuse [x] sx of adult ADHD [x] pre-op tobacco use [x] pre-op recreational drug use [x] Childhood trauma hx []Other: *Binge drinking = 4 or more drinks/sitting for a woman, 5 or more drinks/sitting for a man Assessment: (F54) Psychological factors affecting medical condition (primary encounter diagnosis) (E66.9) Obesity, unspecified class, unspecified obesity type, unspecified whether serious comorbidity present (F17.210) Nicotine dependence, cigarettes, uncomplicated (F41.1) Generalized anxiety disorder (F41.0) Panic disorder without agoraphobia (F50.811) Moderate binge-eating disorder (F50.89) Other specified eating disorder (F84.0) Autism spectrum disorder (HCC) Plan: Return to individual provider for further recommendations (Dr. Farris): Review Coping Skills and Triggers for Relapse; create a relapse prevention plan Have patient sign the Substance Use Behavior Adherence Contract with a focus on alcohol, nicotine, and cannabis Discuss how strategies reviewed today may overlap with skills from BEST Start to address eating Continue with mental health treatment (counseling and medications); continue to increase adaptive coping Practice cutting down with eventual goal of abstaining from alcohol use prior to surge (more content not included)... [facility] 04-05-2025 Note HNO ID: [id number] Author: MOLLY FARRIS, PhD Service: ? Author Type: Physician Type: Progress Notes Filed: 04/05/2025 13:07 Note Text: [facility] METABOLIC/BARIATRIC SURGERY (MBS) BEHAVIORAL HEALTH EVALUATION Patient name: Lalitha Garcia Date of service: April 05, 2025 Time of service: 8:30 AM - 9:30 AM Cost center: [facility] CPT code(s): - 0721148 Virtual Psych Diagnostic Eval Billing code: ENDO PSYL MAIN NICO8/Kaleigh Session #: 1 Patient is being seen for an initial evaluation. All information is from patient report except when noted. This evaluation is NOT intended for forensic, disability, or child custody purposes. The patient e-signed the Informed Consent for Psychological Evaluation AND Care Form in preparation for this visit. The [facility] health care insurance benefits, fees for service, emergency procedures, and limits to confidentiality were discussed with the patient, and she was given a chance to ask questions. The patient was provided with a copy of the consent form via CEINT. Prior to initiating the virtual visit, I communicated my name and active licensure. The patient's identity (name, ) and physical location were verified. Patient was encouraged to move to a private space free of distractions. Either the patient or their legal telecommunications sales representative has been informed of the risks and benefits of -- and alternatives to -- telepsychology and consented to proceed with the evaluation remotely. Upon completion of risk/benefit analysis, the patient's presenting problem and apparent condition are considered appropriate for virtual format. The patient does appear to have sufficient knowledge and skills in the use of relevant technology to benefit from virtual format. Plan in case of unexpected disconnection: provider will attempt to contact patient at their preferred phone number ([phone]) or via email ([email or web address]). Recording using LoopUp software for draft documentation of the visit was discussed with the patient/authorized telecommunications sales representative; all questions welcomed and answered. Patient/authorized telecommunications sales representative agreed to proceed Extended Emergency Contact Information Primary Emergency Contact: Lalitha Brooks Address: [address] [place] [address] [place] [address] [place] Relation: Mother Platform: [employer] Address of patient during visit: Mother's home in [place] Collateral parties present: child (3 yo) IDENTIFYING INFORMATION Ms. Lalitha Garcia is a 29 year old, Black or female who was referred by [facility]. She is seeking undecided for Class III obesity . MOTIVATION FOR SURGERY / UNDERSTANDING OF PROCEDURE / EXPECTATIONS Patient is a 29-year-old female with a history of ADHD, anxiety, and panic attacks, presenting for evaluation prior to bariatric surgery. Patient reports a current weight of 427 lbs, with a significant increase over the past year. She attributes this to night eating and medical conditions such as PCOS and DARWIN. She has attempted dieting and exercise but finds it challenging to maintain weight loss. She expresses a desire to undergo bariatric surgery, preferring a sleeve gastrectomy over gastric bypass, though she is open to the surgeon's recommendation. Ms. Garica reported the following motivations for pursuing surgery: medical problems. The patient has a limited understanding of the surgical procedure, risks, benefits, and required lifestyle changes. She has talked with other people who have undergone the procedure, including foster Mother had 13 years ago while patient lived with her. The patient expects to lose to 200 lbs (50+% TBW) following surgery over 12 months. Other expectations include improvement in health, increased activity, and ability to gorge after daughter. Reviewed realistic expectations (20-30% TBW with LSG or 25-35% TBW with RYGB over ~18 months). Educated patient regarding expected timeline of weight loss/surgery recovery. CAPACITY TO CONSENT Ms. Garcia evidences the following concerns regarding capacity to consent: ADHD and history of IEP in schools. MEDICAL PROBLEMS ACTIVE PROBLEM LIST Uncomplicated Asthma (Hcc) Attention Deficit Hyperactivity Disorder (Adhd) Episodic Mood Disorder Foster Care (Status) Ovarian Cyst, Right Paratubal Cyst PCOS DARWIN--did sleep study on 03/24 and has f/u appointment Knee Pain History of ASD while in school--went through lots of intensive therapy which led to high level of functioning She experiences knee pain described as on fire and swelling in her ankles, which she believes may be due to high salt intake or water retention. She denies any heart or kidney issues, and recent EKG and lung x-rays were normal. She also reports episodes of acid reflux, particularly at night, leading to choking sensations. She has a history of O (more content not included)... [facility] 03-29-2025 Note HNO ID: [id number] Author: MOLLY FARRIS, PhD Service: ? Author Type: Physician Type: Progress Notes Filed: 03/29/2025 08:55 Note Text: Patient no show to psychology visit. Molly Farris, Ph.D. Bariatric and Metabolic [place] Department of Psychiatry and Psychology [facility] 03-25-2025 Note HNO ID: [id number] Author: GWEN ZHANG, PhD Service: ? Author Type: Psychologist Type: Progress Notes Filed: 03/25/2025 12:08 Note Text: Lalitha Garcia [id number] March 25, 2025 [facility] Bariatric and Metabolic [facility] M61 Psychology Orientation/ Welcome Group CPT: NO CHARGE (informational seminar/no treatment provided) 1:00-2:00pm (pt arrived 8 mins late) Psychology Orientation Seminar Patients attended an informational [...] psychology consultation visit. Gwen Zhang, Ph.D. Psychologist [facility] 03-25-2025 Note HNO ID: [id number] Author: ?, ?, ? Service: ? Author Type: ? Type: Progress Notes Filed: 03/25/2025 03:29 Note Text: Sleep Study Check-In Documentation Date: March 25, 2025 Name: Lalitha Garcia Patient was accompanied by Self. Location: Latex allergy: Yes Tape allergy: No Current medications were reviewed with the patient:Yes Sleep aid taken by patient for the sleep study: Yes Name of sleep aid: Hydroxyzine HCI and Topamax Procedure was explained to the patient and all questions were answered. PAP treatment discussed and shown to patient: Yes If PAP used enter mask info: Mask Name resmed Make airfit f20 MaskTypeFull Face Mask SizeMedium Chin Sharp Used No Knowledge Program (KP): KP was not completed in epic by patient and accepted Study type: PAP titration Adverse Event: No (If yes create a new abstract) Comments: Patient was advised to follow up with their ordering provider regarding test results Senia Quinn [facility] 03-21-2025 Discharge summary [facility] 03-21-2025 Discharge summary Note Date/Time March 21, 2025 3:10pm [facility] Medical Records Department [address] [place] [address] Emergency Department Summary 03/21/25 MR#: [id number] Acct: [id number] Name: LALITHA GARCIA Rep #:[id number] : 1995 29 From: José Miguel Parham PCP: Care Physician,No Primary Status :DEP ER Location: ED HPI History of Present Illness HPI Narrative: Patient presents with left leg pain and swelling that became worse today. Patient states she was seen here for this recently and was told to keep her leg elevated. Patient states today when she was getting ready to leave work, she started having some shortness of breath and pressure in her chest. Patient states it is worse with walking. Patient states she feels dizzy with this. Patient denies any nausea or vomiting. Patient denies any fevers or chills. Patient denies any cough. Chief Complaint: Lower Extremity Injury Informant: patient Onset/Context/Timing Onset: Today Context: Gradual Onset Timing: Continuous Quality of Pain: Aching Location: Left lower leg Worsened by: Walking Relieved by: Nothing Associated Symptoms Associated Symptoms: Negative for Parasthesia, Weakness or Loss of Funtion PFSH [facility] Medical History Hypertension Ovarian cyst Preeclampsia Home Medications ?Medication ?Instructions ?Recorded ?Last Taken ?Type hydroxyzine HCl 10 mg tablet 10 mg PO BID PRN PRN anxi ety 03/21/25 Unknown History Allergy/AdvReac Type Severity Reaction Status Date / Time latex AdvReac Rash Verified 03/21/25 11:05 Family History Aunt Breast cancer, Onset Age: 34 Grandfather Throat cancer Surgical History History of tonsillectomy Social History adopted: No number of children: 1 current occupational status: employed sexually active: Yes Smoking Status: Current every day smoker tobacco type: cigarettes and e-cigarettes alcohol intake: never substance use type: does not use and marijuana caffeine: Yes Type: carbonated beverages danna/episcopalian: AGNOSTIC seatbelt use: always do you feel safe at home: Yes ROS ROS ED Constitutional Constitutional ED: Denies chills or fever(s) Eyes Eyes: Denies blurry vision or change in vision ENT ENT ED: Denies rhinorrhea or sore throat Cardiovascular Cardiovascular: Reports chest pain; Denies palpitations Respiratory/Chest Respiratory/Chest: Reports dyspnea; Denies cough Gastrointestinal Gastrointestinal: Denies nausea or vomiting Genitourinary Genitourinary ED: Denies dysuria or hematuria Musculoskeletal Musculoskeletal: Reports back pain and neck pain Integumentary Denies abscess or rash Neurologic Neurologic: Denies headache(s) or weakness Allergic/Immunologic Allergic/Immunologic ED: Denies mouth swelling or urticaria EXAM Physical Exam Const Vital Signs: 03/21/25 11:05 Temperature 97.9 F Temperature Source Oral Pulse Rate 93 Respiratory Rate 18 Blood Pressure 158/104 H Blood Pressure Mean 122 Pulse Ox 99 Oxygen Delivery Method Room Air Positive well nourished and well developed General Appearance ED: well developed and NAD HEENT Reports moist mucous membranes Neck full ROM Resp normal respiratory effort and clear to auscultation bilaterally Cardio regular rate and regular rhythm GI non-tender and non-distended Palpation: soft Extremity full ROM Extremity Narrative: There is mild edema and tenderness over the left calf. There is no deformity noted. There is good pulse palpated. Neuro oriented x3, CN's II-XII intact bilaterally, moves all extremities and no sensory deficits noted Sensorium / Orientation: alert Motor Exam: strength 5/5 throughout Psych mental status grossly normal MDM MDM MDM Narrative Medical decision making narrative: Differential diagnosis includes DVT, PE, cardiac dysrhythmia, dehydration, electrolyte abnormality, and anemia. EKG will be obtained to assess for cardiacdysrhythmia and cardiac ischemia. CTA of the chest will be obtained to assess for pulmonary embolism and pneumonia. Venous duplex of the left lower extremitywill be obtained to assess for DVT. CBC will be obtained to assess for leukocytosis and anemia. Basic metabolic profile will be obtained to assess forelectrolyte abnormality and renal function. Lab Data Lab results narrative: CBC was reviewed and was within normal limits. Basic metabolic profile was reviewed and was within normal limits. Radiography Diagnostic Testing: Venous duplex of the left lower extremity was obtained. There is no evidence ofDVT. CTA of the chest was obtained. There is no evidence of pulmonary embolism or aortic dissection. No acute process noted. This was interpreted by the radiologist and was also independently reviewed by myself. EKG Initial EKG: Attestation: I personally reviewed and interpreted this EKG as follows: Interpretation: Sinus Rhythm (81) and No Acute Injury Pattern Comments: EKG was obtained. On my independent interpretation, it showed anormal sinus rhythm with a rate of 81. AK interval, QRS interval, and QTc intervals were all normal. [place] was normal. There are no acute ST or T wave changes. Prior EKG tracings: available for review Prior: Unchanged (03/10/2024) Treatment and Re-Evaluation Narrative: Patient was given IV fluids. Patient was advised of her findings. Patient was instructed to follow-up with her primary care physician in 5 to 7 days. Patientwas instructed to return if worse in any way. Patient understood and was agreeable with the plan. All questions were answered. Discharge Plan Triage Chief Complaint: Lower Extremity Injury ED Provider: José Miguel Clark Dx/Rx/DC Orders Clinical Impression: Peripheral edema, Chest pain Instructions: ED Peripheral Edema, Unilateral Prescriptions: No Action norethindrone acetate 5 mg tablet 5 mg PO .COMPLEX Qty: 45 0RF Rx Instructions: 5 mg orally TID until bleeding stops for 24hrs then BID to finish RX; Primary Care Provider: Care Physician,No Primary Referrals: Care Physician,No Primary [Primary Care Provider, Medical] Chandrika Quick NP-C [Non-Staff, Family Practice] - 5-7 Days Print Language: Slovenian Disposition Disposition: Home, Self Care What to do if you have Problems For any increased pain, shortness of breath, bleeding, nausea or vomiting, chestpain, or any unexpected problems, contact your Primary Care Provider. Call [facility] ([phone]) or report to the closest Emergency Room. Call 911 if necessary. 03/21/25 1558 <Electronically signed by José Miguel Clark DO> Cosigner Signature (if applicable): CC: No Primary Care Physician ~ Signed [facility] Work Phone: [phone]) 245-398909-29-2025 Radiology Diagnostic study note [facility] Imaging Services [address] [place], [place] [address] CTA Chest W/WO Contrast MR#: [id number] Acct: [id number] Name: LALITHA GARCIA Rep #: [id number] : 1995 F 29 From: Reinaldow kyung Koch MD PCP: Care Physician,No Primary Status: [facility] ER Study:CTA Chest W/WO Contrast Date of Exam: 03/21/25 Exam# [id number] Ordering Dr: José Miguel Clark DO PROCEDURE: CTA CHEST W/WO CONTRAST 03/21/2025 REASON FOR EXAM: DYSPNEA TECHNIQUE: Procedure Code: CTCTACHWW Modality: CT Procedure: CTA CHEST W/WO CONTRAST Multiplanar Sagittal and Coronal images were obtained. 3D post processing was performed CONTRAST: Isovue 370 VOLUME: 75 mL One or more dose reduction techniques were used (e.g., Automated exposure control, adjustment of the mA and/or kV according to patient size, use of iterative reconstruction technique). RADIATION DOSE SUMMARY: CTDlvol: 30 mGy DLP: 549 mGycm COMPARISON: March 10, 2024 # of known CTs in the past 12 months: 0 # of known Cardiac Nuclear Medicine Studies in the past 12 months: 0 FINDINGS: Thoracic Aorta: No aneurysm or dissection. Heart: Normal-size. No pericardial effusion. Coronary arteries are unremarkable Pulmonary Vessels: The timing and quality of the contrast bolus is diagnostic. There is no evidenceof acute or chronic pulmonary embolus. Hardware: Normal Lymph nodes: None appear enlarged Lungs and Airways: Clear. Pleura: No pneumothorax or pleural effusion. Upper Abdomen: No acute abnormality Bones: Normal CT/CTA Chest W/WO Contrast IMPRESSION: No acute abnormality Reading Location: [id number] CC: Dr. José Miguel Clark, DO; No Primary Care Physician ~ Cable Installation Manager: Signed [facility]08-29-2025 Telephone encounter Note* Telephone Encounter - Amy Arnett - 02/18/2025 3:58 PM EDT Spoke with patient regarding today's same day scheduled er follow up appointment. She forgot she set up this appointment. She did want to reschedule but due to Dr. Casey's schedule patient was given the [facility] phone number at [phone]. Patient understood that she needs to contact the call center. DALY Peters [phone] [facility]08-29-2025 Miscellaneous Notes* Telephone Encounter - Amy Arnett - 02/18/2025 3:58 PM EDT Spoke with patient regarding today's same day scheduled er follow up appointment. She forgot she set up this appointment. She did want to reschedule but due to Dr. Casey's schedule patient was given the [facility] phone number at [phone]. Patient understood that she needs to contact the call center. DALY Peters [phone] [facility] NoteHNO ID: [id number] Author: LUZ ELENA GALVAN III, PhD Service: ? Author Type: Physician Type: Progress Notes Filed: 03/25/2025 03:29 Note Text: February 16, 2025 Standing PSG Orders signed in the last 90 days None Future PSG Orders signed in the last 90 days Ordered Auth. provider PAP TITRATION PSG (CPAP, BIPAP, ASV) [[id number]] 12/08/24 Alber Wolff MD Assoc. diagnoses: DARWIN (obstructive sleep apnea) [G47.33] Q: Indications: A: Obstructive sleep apnea Q: STOP-BANG conditions - Select All That Apply: A: BMI > 35 kg/m2 A2: SNORING that is loud or disruptive A3: TIREDNESS, fatigue or sleepiness during the day A4: OBSERVED sleep apnea A5: NECK circumference (male >43 cm/17 in; female > 41 cm/16 in) Q: Special Needs (e.g.behavior, non-ambulatory, >450 lbs)?: A: No Q: Prior PAP (CPAP or Bilevel PAP) Use?: A: No Q: Sleep History: A: Sleep apnea A2: Daytime sleepiness Q: Current use of supplemental oxygen during sleep period?: A: No Q: Add supplemental oxygen if needed per sleep lab policy?: A: Yes All Prior Sleep Studies (past 365 days) 12/08/2024 11:02 Sleep Studies PAP TITRATION PSG (CPAP, BIPAP, ASV) PAP TITRATION PSG (CPAP, BIPAP, ASV) Order Status: Ordered, Future Expires: 01/07/26 BMI Readings from Last 2 Encounters: 12/08/24 : 60.57 kg/m? 11/02/24 : 57.32 kg/m? PAST MEDICAL HISTORY Diagnosis Date Anxiety state Obesity DARWIN (obstructive sleep apnea) The medical record was reviewed to determine if the proposed sleep study conforms to the AASM Practice Parameters for the Indications for Polysomnography and Related Procedures, or if the sleep study is indicated for other reasons. Indications for study: DARWIN previously diagnosed: Evaluate response to PAP therapy Sleep study to be performed: PAP titration study Special instructions: Start titration at PAP setting of 5cmH2O Target REM/supine sleep Add Transcutaneous CO2 Positive HSAT Vian[facility]ag[facility] Staff Note: I have read the above protocol, edited as needed, and agree to the plan. Luz Elena Galvan III, PhD 2:26 PM, 02/16/2025[facility]08-27-2025 NoteHNO ID: [id number] Author: ?, ?, ? Service: ? Author Type: ? Type: Progress Notes Filed: 03/25/2025 03:29 Note Text: February 16, 2025 An order has been received for PAP titration study from Alber Bull a B. [facility] Staff. Visit prep complete. Comments :No The sleep study is scheduled for 03/24. Insurance: Payor: [facility] MEDICAID / Plan: [facility] COMM[employer] PLAN MEDICAID [facility] / Product Type: Medicaid / Payer/Plan Subscr Sex Relation Sub. Ins. ID Effective Group Num 1. [facility] MEDICAID * LALITHA GARCIA 1995 Female Self [id number] 08/21/24 [facility] [address] [facility]08-02-2025 Discharge summary [facility] Medical Records Department [address] [place] [address] Emergency Department Summary 01/22/25 MR#: [id number] Acct: [id number] Name: LALITHA GARCIA Rep #:[id number] : 1995 29 From: Gomez Martinez PCP: Care Physician,No Primary Status :REG ER Location: ED HPI History of Present Illness Chief Complaint: Shortness of Breath Informant: patient Narrative Narrative: Presents concerning swelling left ankle over the last couple days. States initially had mild pain in the However it went away. She traveled back in October over 3 months ago to [place]. She stateswhen she returned she had leg pains bilaterally went to an outside ED ultrasounds both legs were negative. Normal urination. Nursing triage notes dyspnea however she denies dyspnea. States she has anxiety and smokes. No vomiting no diarrhea. No history of blood clots in legs or lungs. She is she isbeen elevating. She is making normal urine output. [facility] Medical History Hypertension Ovarian cyst Preeclampsia Home Medications ?Medication ?Instructions ?Recorded ?Last Taken ?Type norethindrone acetate 5 mg tablet 5 mg PO .COMPLEX #45 tabs 03/03/24 Unknown Rx Allergy/AdvReac Type Severity Reaction Status Date / Time latex AdvReac Rash Verified 01/22/25 21:48 Family History Aunt Breast cancer, Onset Age: 34 Grandfather Throat cancer Surgical History History of tonsillectomy Social History adopted: No number of children: 1 current occupational status: employed sexually active: Yes Smoking Status: Current every day smoker tobacco type: cigarettes and e-cigarettes alcohol intake: never substance use type: does not use and marijuana caffeine: Yes Type: carbonated beverages danna/episcopalian: AGNOSTIC seatbelt use: always do you feel safe at home: Yes ROS ROS ED Constitutional Constitutional ED: Denies fever(s) Cardiovascular Cardiovascular: Denies chest pain Respiratory/Chest Respiratory/Chest: Denies cough Gastrointestinal Gastrointestinal: Denies diarrhea or vomiting Musculoskeletal Musculoskeletal: Reports other Details: Swelling left ankle. ; Denies none Integumentary Denies rash or wounds Neurologic Neurologic: Denies weakness EXAM Physical Exam Const Vital Signs: 01/22/25 21:45 01/22/25 22:03 01/22/25 22:05 Temperature 97.6 F L Temperature Source Temporal Pulse Rate 110 H Respiratory Rate 18 Respiratory Effort Normal Normal Respiratory Depth Normal Respiratory Pattern Normal Normal Blood Pressure 157/106 H Blood Pressure Mean 123 Pulse Ox 97 Oxygen Delivery Method Room Air Room Air Positive well nourished and well developed Constitutional Narrative: BMI 70 General Appearance ED: well developed HEENT normocephalic and atraumatic Eyes General Eye ED: Yes normal appearance of both eyes Neck full ROM Resp normal respiratory effort and normal air movement Cardio regular rate and regular rhythm Rate: other Other Details: Heart rate 94 GI soft to palpation Extremity normal to inspection and full ROM Extremity Narrative: Left lower extremity: Very mild swelling ankle. No redness no warmth. No calf tenderness. Soft compartments. Pulses intact distally. Neuro oriented x3 Skin no rashes or lesions noted and no wounds MDM MDM MDM Narrative Medical decision making narrative: Interventions / MDM: Differential diagnosis: Left lower extremity swelling, history of asthma Diagnosis considered but do not suspect: Proximal DVT however bedside ultrasoundnegative, electrolyte abnormalities however labs normal. My EKG interpretation: N/A Imaging independently reviewed and interpreted by myself: N/A External documents reviewed: N/A Test considered but not ordered:N/A ED course: isolated swelling left ankle. Patient traveled over 3 months ago. She reported ultrasounds afterwards were negative. She denies any urinary changes. She has not any recent blood work. I will check basic labs. No official ultrasound available at this time. I will perform bedside ultrasound to point regions for evaluation. 2245: Left lower extremity 2 point bedside ultrasound performed by myself no DVTproximal third along with popliteal. Patient reassured. Awaiting lab work results. 2320: Lab work normal creatinine 0.68. Reassuring findings. Follow-up given along with outpatient formal ultrasound ordered. Re-evaluation: stable Disposition discussed with patient/family/significant other: Patient Case discussed with consulting clinician: N/A This note was generated with Quantapore dictation software. It may contain incorrectwords, spelling, and punctuation that were not noted in checking the note beforesigning. Lab Data Attestation: I reviewed the patient's lab results. Labs: Laboratory Results - last 24 hr 01/22/25 01/22/25 01/22/25 22:28 22:28 23:03 WBC Cancelled 5.5 Corrected WBC Cancelled RBC Cancelled 4.70 Hgb Cancelled 13.6 Hct Cancelled 41.5 MCV Cancelled 88.3 MCH Cancelled 28.9 MCHC Cancelled 32.8 RDW Std Deviation Cancelled 41.5 RDW Coeff of Raghu Cancelled 12.9 Plt Count Cancelled 313 MPV Cancelled 9.3 Immature Gran % (Auto) Cancelled 0.200 Neut % (Auto) Cancelled 46.0 L Lymph % (Auto) Cancelled 41.5 H Yoakum % (Auto) Cancelled 8.7 Eos % (Auto) Cancelled 3.1 Baso % (Auto) Cancelled 0.5 Absolute Neuts (auto) Cancelled 2.5 Absolute Lymphs (auto) Cancelled 2.29 Total Counted Cancelled Neutrophils % (Manual) Cancelled Band Neutrophils % Cancelled Lymphocytes % (Manual) Cancelled Monocytes % (Manual) Cancelled Eosinophils % (Manual) Cancelled Basophils % (Manual) Cancelled Metamyelocytes % Cancelled Myelocytes % Cancelled Promyelocytes % Cancelled Blast Cells % Cancelled Plasma Cell % (Manual) Cancelled Other Cells % Cancelled Nucleated RBC % Cancelled 0 Nucleated RBCs/100 WBC Cancelled Differential Comment Cancelled Diff Path Review Cancelled Hypersegmented Neuts Cancelled Atypical Lymphocytes Cancelled Reactive Lymphocytes Cancelled Smudge Cells Cancelled Toxic Granulation Cancelled Toxic Vacuolation Cancelled Dohle Bodies Cancelled Jayne Rods Cancelled Platelet Estimate Cancelled Plt Morphology Comment Cancelled RBC Morphology Cancelled Cancelled Polychromasia Cancelled Hypochromasia Cancelled Basophilic Stippling Cancelled Anisocytosis Cancelled Microcytosis Cancelled Macrocytosis Cancelled Spherocytes Cancelled Sickle Cells Cancelled Target Cells Cancelled Tear Drop Cells Cancelled Ovalocytes Cancelled Stomatocytes Cancelled Khan-Silerton Bodies Cancelled Marvin Cells Cancelled Bite Cells Cancelled Crenated Cell Cancelled Acanthocytes (Spur) Cancelled Rouleaux Cancelled Schistocytes Cancelled Sodium 139 Potassium 4.2 Chloride 105 Carbon Dioxide 25.5 Anion Gap 9 BUN 12 Creatinine 0.68 L Estim Creat Clear Calc 237.01 Est GFR (MDRD) Non-Af 122 BUN/Creatinine Ratio 17.2 Glucose 105 H Calcium 9.0 Discharge Plan Triage Chief Complaint: Shortness of Breath ED Provider: Gomez Philippe Dx/Rx/DC Orders Clinical Impression: Edema, peripheral, History of anxiety Instructions: ED Peripheral Edema, Unilateral Prescriptions: No Action norethindrone acetate 5 mg tablet 5 mg PO .COMPLEX Qty: 45 0RF Rx Instructions: 5 mg orally TID until bleeding stops for 24hrs then BID to finish RX; Other Ambulatory Orders: Venous Duplex US, Unilateral (Stat) Facility: [facility] - Location: [facility] Ordered By: Dr. Gomez Philippe Primary Care Provider: Care Physician,No Primary Referrals: Care Physician,No Primary [Primary Care Provider] - Justyna Dickens Tammie, [[facility]] - 1-2 Weeks Activity Restrictions/Additional Instructions: Bedside ultrasound shows no clots in your upper leg or behind your knee. Your labs are stable. Return for evaluation formal ultrasound your left leg. Print Language: Slovenian Disposition Disposition: Home, Self Care What to do if you have Problems For any increased pain, shortness of breath, bleeding, nausea or vomiting, chestpain, or any unexpected problems, contact your Primary Care Provider. Call [facility] ([phone]) or report tothe closest Emergency Room. Call 911 if necessary. 01/22/25 0677 Cosigner Signature (if applicable): CC: No Primary Care Physician ~ Signed [facility]08-02-2025 Telephone encounter Note* Telephone Encounter - Vanessa Israel RN - 01/22/2025 7:33 PM EDT Reason for Call: Ankle Swelling. Patient reports she has had ankle swelling since , ate salty foods that day and both anklesswelled with the Left being more swollen than the Right. Outcome: See HCP within 4 hours. Discussed open options, ER is available/open now. Patient advised to go to the Emergency Room within 4 hours. Patient plans to go to [facility] at this time. Encouraged to fur puller and call 911 if anything worsens or changes in route. Vanessa Israel RN Reason for Disposition [1] Thigh, calf, or ankle swelling AND [2] bilateral AND [3] 1 side is more swollen Answer Assessment - Initial Assessment Questions 1. LOCATION: Left swelling is all around ankle like a donut, Right is starting to swell just below ankle. 2. ONSET: 3. SWELLING: - Rates it MILD to MODERATE. Is located from half point in foot to ankle to 1 side of ankle to other 4. PAIN: Pain? 4/10 Location of pain? Left ankle Description of pain? Like a sprained ankle Duration of pain? Intermittent with touching it only Pain relief methods/effectiveness? Taken advil, switched out to tylenol, hasn't helped, ice packs. 5. CAUSE: Ate a salty pub mix day the swelling started. Also ate a pulled pork and fajita that weresalty that day. 6. OTHER SYMPTOMS: Denies fever, chest pain, difficulty breathing, calf pain. Had a panic attack with yesterday. Has intermittent shortness of breath taht she has had due to Asthma without any changes to symptoms. Denies current difficulty breathing. 7. : Denies, has mirena Protocols used: Ankle Jgztqlgr-[id number]-ML [facility] Work Phone: 1(917) 362-930008-02-2025 Miscellaneous Notes* Telephone Encounter - Vanessa Israel RN - 01/22/2025 7:33 PM EDT Reason for Call: Ankle Swelling. Patient reports she has had ankle swelling since , ate salty foods that day and both anklesswelled with the Left being more swollen than the Right. Outcome: See HCP within 4 hours. Discussed open options, ER is available/open now. Patient advised to go to the Emergency Room within 4 hours. Patient plans to go to [facility] at this time. Encouraged to fur puller and call 911 if anything worsens or changes in route. Vanessa Israel RN Reason for Disposition [1] Thigh, calf, or ankle swelling AND [2] bilateral AND [3] 1 side is more swollen Answer Assessment - Initial Assessment Questions 1. LOCATION: Left swelling is all around ankle like a donut, Right is starting to swell just below ankle. 2. ONSET: 3. SWELLING: - Rates it MILD to MODERATE. Is located from half point in foot to ankle to 1 side of ankle to other 4. PAIN: Pain? 4/10 Location of pain? Left ankle Description of pain? Like a sprained ankle Duration of pain? Intermittent with touching it only Pain relief methods/effectiveness? Taken advil, switched out to tylenol, hasn't helped, ice packs. 5. CAUSE: Ate a salty pub mix day the swelling started. Also ate a pulled pork and fajita that weresalty that day. 6. OTHER SYMPTOMS: Denies fever, chest pain, difficulty breathing, calf pain. Had a panic attack with yesterday. Has intermittent shortness of breath taht she has had due to Asthma without any changes to symptoms. Denies current difficulty breathing. 7. : Denies, has mirena Protocols used: Ankle [id number]-LS documented in this encounterGenesis Hospital08-02-2025 Discharge summary Author Gomez Philippe [facility] Note Date/Time January 22, 2025 11: 23pm [facility] Medical Records Department [address] [place] [address] Emergency Department Summary 01/22/25 MR#: [id number] Acct: [id number] Name: LALITHA GARCIA Rep #:[id number] : 1995 29 From: Gomez Martinez PCP: Care Physician,No Primary Status :REG ER Location: ED HPI History of Present Illness Chief Complaint: Shortness of Breath Informant: patient Narrative Narrative: Presents concerning swelling left ankle over the last couple days. States initially had mild pain in the However it went away. She traveled back in October over 3 months ago to [place]. She states when she returned she had leg pains bilaterally went to an outside ED ultrasounds both legs were negative. Normal urination. Nursing triage notes dyspnea however she denies dyspnea. States she has anxiety and smokes. No vomiting no diarrhea. No history of blood clots in legs or lungs. She is she is been elevating. She is making normal urine output. [facility] Medical History Hypertension Ovarian cyst Preeclampsia Home Medications ?Medication ?Instructions ?Recorded ?Last Taken ?Type norethindrone acetate 5 mg tablet 5 mg PO .COMPLEX #45 tabs 03/03/24 Unknown Rx Allergy/AdvReac Type Severity Reaction Status Date / Time latex AdvReac Rash Verified 01/22/25 21:48 Family History Aunt Breast cancer, Onset Age: 34 Grandfather Throat cancer Surgical History History of tonsillectomy Social History adopted: No number of children: 1 current occupational status: employed sexually active: Yes Smoking Status: Current every day smoker tobacco type: cigarettes and e- cigarettes alcohol intake: never substance use type: does not use and marijuana caffeine: Yes Type: carbonated beverages danna/episcopalian: AGNOSTIC seatbelt use: always do you feel safe at home: Yes ROS ROS ED Constitutional Constitutional ED: Denies fever(s) Cardiovascular Cardiovascular: Denies chest pain Respiratory/Chest Respiratory/Chest: Denies cough Gastrointestinal Gastrointestinal: Denies diarrhea or vomiting Musculoskeletal Musculoskeletal: Reports other Details: Swelling left ankle. ; Denies none Integumentary Denies rash or wounds Neurologic Neurologic: Denies weakness EXAM Physical Exam Const Vital Signs: 01/22/25 21:45 01/22/25 22:03 01/22/25 22:05 Temperature 97.6 F L Temperature Source Temporal Pulse Rate 110 H Respiratory Rate 18 Respiratory Effort Normal Normal Respiratory Depth Normal Respiratory Pattern Normal Normal Blood Pressure 157/106 H Blood Pressure Mean 123 Pulse Ox 97 Oxygen Delivery Method Room Air Room Air Positive well nourished and well developed Constitutional Narrative: BMI 70 General Appearance ED: well developed HEENT normocephalic and atraumatic Eyes General Eye ED: Yes normal appearance of both eyes Neck full ROM Resp normal respiratory effort and normal air movement Cardio regular rate and regular rhythm Rate: other Other Details: Heart rate 94 GI soft to palpation Extremity normal to inspection and full ROM Extremity Narrative: Left lower extremity: Very mild swelling ankle. No redness no warmth. No calf tenderness. Soft compartments. Pulses intact distally. Neuro oriented x3 Skin no rashes or lesions noted and no wounds MDM MDM MDM Narrative Medical decision making narrative: Interventions / MDM: Differential diagnosis: Left lower extremity swelling, history of asthma Diagnosis considered but do not suspect: Proximal DVT however bedside ultrasoundnegative, electrolyte abnormalities however labs normal. My EKG interpretation: N/A Imaging independently reviewed and interpreted by myself: N/A External documents reviewed: N/A Test considered but not ordered:N/A ED course: isolated swelling left ankle. Patient traveled over 3 months ago. She reported ultrasounds afterwards were negative. She denies any urinary changes. She has not any recent blood work. I will check basic labs. No official ultrasound available at this time. I will perform bedside ultrasound to point regions for evaluation. 2244: Left lower extremity 2 point bedside ultrasound performed by myself no DVTproximal third along with popliteal. Patient reassured. Awaiting lab work results. 2320: Lab work normal creatinine 0.68. Reassuring findings. Follow-up given along with outpatient formal ultrasound ordered. Re-evaluation: stable Disposition discussed with patient/family/significant other: Patient Case discussed with consulting clinician: N/A This note was generated with Quantapore dictation software. It may contain incorrectwords, spelling, and punctuation that were not noted in checking the note beforesigning. Lab Data Attestation: I reviewed the patient's lab results. Labs: Laboratory Results - last 24 hr 01/22/25 01/22/25 01/22/25 22:28 22:28 23:03 WBC Cancelled 5.5 Corrected WBC Cancelled RBC Cancelled 4.70 Hgb Cancelled 13.6 Hct Cancelled 41.5 MCV Cancelled 88.3 MCH Cancelled 28.9 MCHC Cancelled 32.8 RDW Std Deviation Cancelled 41.5 RDW Coeff of Raghu Cancelled 12.9 Plt Count Cancelled 313 MPV Cancelled 9.3 Immature Gran % (Auto) Cancelled 0.200 Neut % (Auto) Cancelled 46.0 L Lymph % (Auto) Cancelled 41.5 H Yo[place]um % (Auto) Cancelled 8.7 Eos % (Auto) Cancelled 3.1 Baso % (Auto) Cancelled 0.5 Absolute Neuts (auto) Cancelled 2.5 Absolute Lymphs (auto) Cancelled 2.29 Total Counted Cancelled Neutrophils % (Manual) Cancelled Band Neutrophils % Cancelled Lymphocytes % (Manual) Cancelled Monocytes % (Manual) Cancelled Eosinophils % (Manual) Cancelled Basophils % (Manual) Cancelled Metamyelocytes % Cancelled Myelocytes % Cancelled Promyelocytes % Cancelled Blast Cells % Cancelled Plasma Cell % (Manual) Cancelled Other Cells % Cancelled Nucleated RBC % Cancelled 0 Nucleated RBCs/100 WBC Cancelled Differential Comment Cancelled Diff Path Review Cancelled Hypersegmented Neuts Cancelled Atypical Lymphocytes Cancelled Reactive Lymphocytes Cancelled Smudge Cells Cancelled Toxic Granulation Cancelled Toxic Vacuolation Cancelled Dohle Bodies Cancelled Jayne Rods Cancelled Platelet Estimate Cancelled Plt Morphology Comment Cancelled RBC Morphology Cancelled Cancelled Polychromasia Cancelled Hypochromasia Cancelled Basophilic Stippling Cancelled Anisocytosis Cancelled Microcytosis Cancelled Macrocytosis Cancelled Spherocytes Cancelled Sickle Cells Cancelled Target Cells Cancelled Tear Drop Cells Cancelled Ovalocytes Cancelled Stomatocytes Cancelled Khan-Silerton Bodies Cancelled Marvin Cells Cancelled Bite Cells Cancelled Crenated Cell Cancelled Acanthocytes (Spur) Cancelled Rouleaux Cancelled Schistocytes Cancelled Sodium 139 Potassium 4.2 Chloride 105 Carbon Dioxide 25.5 Anion Gap 9 BUN 12 Creatinine 0.68 L Estim Creat Clear Calc 237.01 Est GFR (MDRD) Non-Af 122 BUN/Creatinine Ratio 17.2 Glucose 105 H Calcium 9.0 Discharge Plan Triage Chief Complaint: Shortness of Breath ED Provider: Gomez Philippe Dx/Rx/DC Orders Clinical Impression: Edema, peripheral, History of anxiety Instructions: ED Peripheral Edema, Unilateral Prescriptions: No Action norethindrone acetate 5 mg tablet 5 mg PO .COMPLEX Qty: 45 0RF Rx Instructions: 5 mg orally TID until bleeding stops for 24hrs then BID to finish RX; Other Ambulatory Orders: Venous Duplex US, Unilateral (Stat) Facility: [facility] - Location: [facility] Ordered By: Dr. Gomez Philippe Primary Care Provider: Care Physician,Ashley Primary Referrals: Care Physician,Ashley Primary [Primary Care Provider] - Justyna Dickens [facility], [[facility]] - 1-2 Weeks Activity Restrictions/Additional Instructions: Bedside ultrasound shows no clots in your upper leg or behind your knee. Your labs are stable. Return for evaluation formal ultrasound your left leg. Print Language: Slovenian Disposition Disposition: Home, Self Care What to do if you have Problems For any increased pain, shortness of breath, bleeding, nausea or vomiting, chestpain, or any unexpected problems, contact your Primary Care Provider. Call [facility] ([phone]) or report to the closest Emergency Room. Call 911 if necessary. 01/22/25 3014 <Electronically signed by Gomez Martinez> Cosigner Signature (if applicable): CC: No Primary Care Physician ~ Signed [facility] Work Phone: 1(644) 358-913806-18-2025 History of Present illness Narrative* Alber Wolff MD - 12/08/2024 10:40 AM EDT HEADACHE MEDICINE NEW EVALUATION December 08, 2024 [...] per week.). AT ONSET OF HEADACHE. MAY REPEATAFTER 2 HOURS. DO NOT EXCEED 30 MG [...] optometry exam in last 6 months at [facility], and knows of no abnormalities. GivenHA's and Body mass index is 60.57 kg/m .--I want to repeat the optometry exam to ensure there is nopapilledema. 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 Author [...] optometry exam in last 6 months at [facility], and knows of no abnormalities. Given ANGUIANO's [...] Alber Wolff MD December 08, 2024 11:17 [facility]05-27-2025 Telephone encounter Note* Telephone Encounter - Wendie Francois RN - 11/16/2024 9:47 PM EDT Reason for call: Leg pain Outcome: Advised to GO TO ED NOW (OR PCP TRIAGE). Patient verbalized understanding and is agreeableto the plan. CALL 911 IF: * You develop any new symptoms * Your condition worsens * You are concerned or anxious about your condition for any other reason. If you have any questions, you can call Nurse content coordinator back. Reason for Disposition Patient sounds very sick or weak to the triager Answer Assessment - Initial Assessment Questions 1. ONSET: Patient states, pain started last Friday11/10/2024, after driving 10 hours, and paineventually went away, but when she drove back 10 hours yesterday 11/15/2024, pain came back 2. LOCATION: Right leg, from the toes to the thigh, stating, it feels like a pulled muscle or strain 3. PAIN: Patient rates, yesterday 1010, and currently 6/10 4. WORK OR EXERCISE: Drove 10 hours to and from [place] 5. CAUSE: Driving long period of time 6. OTHER SYMPTOMS: When initially asking patient was she experiencing difficulty breathing, she stated, no new shortness of breath. Patient then stated, during triage, that she was experiencing worsening shortness of breath 7. : Patient denies , and states, she has a mirena. Patient states, she has irregular menstrual cycles Protocols used: Leg Vrnp-LSYOY-WF [facility]05-27-2025 Miscellaneous Notes* Telephone Encounter - Wendie Francois RN - 11/16/2024 9:47 PM EDT Reason for call: Leg pain Outcome: Advised to GO TO ED NOW (OR PCP TRIAGE). Patient verbalized understanding and is agreeableto the plan. CALL 911 IF: * You develop any new symptoms * Your condition worsens * You are concerned or anxious about your condition for any other reason. If you have any questions, you can call Nurse content coordinator back. Reason for Disposition Patient sounds very sick or weak to the triager Answer Assessment - Initial Assessment Questions 1. ONSET: Patient states, pain started last Friday11/10/2024, after driving 10 hours, and paineventually went away, but when she drove back 10 hours yesterday 11/15/2024, pain came back 2. LOCATION: Right leg, from the toes to the thigh, stating, it feels like a pulled muscle or strain 3. PAIN: Patient rates, yesterday 1010, and currently 6/10 4. WORK OR EXERCISE: Drove 10 hours to and from [place] 5. CAUSE: Driving long period of time 6. OTHER SYMPTOMS: When initially asking patient was she experiencing difficulty breathing, she stated, no new shortness of breath. Patient then stated, during triage, that she was experiencing worsening shortness of breath 7. : Patient denies , and states, she has a mirena. Patient states, she has irregular menstrual cycles Protocols used: Leg Ggma-VUMKA-VT documented in this encounterGenesis Hospital05-13-2025 NoteHNO ID: [id number] Author: SHAHNAZ MARIN MD Service: ? Author Type: Physician Type: Progress Notes Filed: 11/02/2024 12:17 Note Text: Gear Tester offered: Patient declines. Lalitha presents today for [...] IUD source: office provided IUD lot #: [id number] Exp date: 11/20/2026 [facility] [id number] UNIVERSAL PROTOCOL / SAFETY CHECKLIST Procedure to [...] exam or sooner as needed. Shahnaz Marin [facility]05-13-2025 History of Present illness Narrative* Shahnaz Marin MD - 11/02/2024 11:31 AM EDT Gear Tester offered: Patient declines. Lalitha presents today for [...] IUD source: office provided IUD lot #: [id number] Exp date: 11/20/2026 [facility] [id number] UNIVERSAL PROTOCOL / SAFETY CHECKLIST Procedure to [...] patient was told to check the string monthlyfor accurate placement. Bleeding expectations were reviewed. Follow up for next annual exam or sooner as needed. Shahnaz Marin MD documented in this encounterGenesis Hospital05-13-2025 Instructions* Patient Instructions* Wendy Simms MA - 11/02/2024 11:31 AM EDT [...] please contact the office. documented in this encounterGenesis Hospital05-01-2025 Note* Addendum Note - Jose Rojas RN - 10/21/2024 1:10 PM EDTAddended by: JOSE ROJAS on: 10/21/2024 01:10 PM Modules accepted: Orders [facility]05-01-2025 Miscellaneous Notes* Addendum Note - Jose Rojas RN - 10/21/2024 1:10 PM EDTAddended by: JOSE ROJAS on: 10/21/2024 01:10 PM Modules accepted: Orders * Telephone Encounter - Jose Rojas RN - 10/21/2024 1:05 PM EDT Pt called office for medication refill-Norethindrone. This [...] what IUD recommends & side effects. Reviewed withPt use of Ibuprofen prior to appt and [...] daily for 5 days. Jose Rojas RN * Telephone Encounter - Jose Rojas RN - 10/21/2024 12:12 PM EDT Pt last saw JG 10/08/24 for AUB. Prescribed Norethindrone. has approximately 4 tablets left-states it helps, [...] with CP today and wonders if the IUDcan be placed today. Informed her that it will not be able to be placed today, but she can certainly discuss with CP the AUB/Rx for bleeding and what IUD is recommended for this particular situation.Pt agreeable to keeping appt today to discuss information with provider. Jose Rojas RN documented in this encounterGenesis Hospital05-01-2025 Telephone encounter Note * Telephone Encounter - Jose Rojas RN - 10/21/2024 1:05 PM EDT Pt called office for medication refill-Norethindrone. This [...] IUD JG recommends & side effects. Reviewed withPt use of Ibuprofen prior to appt and [...] daily for 5 days. Jose Rojas RN [facility]05-01-2025 Instructions* Patient Instructions* Jose Rojas RN - 10/21/2024 12:16 PM [...] please contact the office. documented in this encounterGenesis Hospital05-01-2025 Telephone encounter Note * Telephone Encounter - Jose Rojas RN - 10/21/2024 12:12 PM EDT Pt last saw JG 10/08/24 for AUB. [...] with CP today and wonders if the IUDcan be placed today. Informed her that it will not be able to be placed today, but she can certainly discuss with CP the AUB/Rx for bleeding and what IUD is recommended for this particular situation.Pt agreeable to keeping appt today to discuss information with provider. Jose Rojas RN [facility]04-18-2025 NoteHNO ID: [id number] Author: SHAHNAZ MARIN MD Service: ? Author [...] visit. 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 Shahnaz Marin, [facility]04-18-2025 History of Present illness Narrative* Shahnaz Marin MD - 10/08/2024 11:22 AM EDT .DISTANCE HEALTH VISIT This Team Access Model visit is a virtual encounter. It required patient- provider interaction for the medical decision making as documented below. I have communicated my name and active licensure. The patient's identity and physical location wereverified at the time of this visit. Either the patient or their legal telecommunications sales representative has been informed of the risks and benefits of -- and alternatives to -- treatment through a remote evaluation andconsents to proceed with the evaluation remotely. Lalitha [...] without fatigue, no recent change in weight FOLDING MACHINE SETTER: no vaginal discharge, no breast mass/tenderness, menstrual periods are described as: irregularand heavy NEURO: no headache PHYSICAL EXAMINATION: VIDEO EXAM: (if done, performed via video enabled technology) No exam performed ASSESSMENT: (N93.9) Abnormal uterine bleeding (AUB) (primary encounter diagnosis) PLAN: Norethindrone taper IUD planned There are no Patient Instructions on file for this visit. Shahnaz Marin MD documented in this [facility]03-27-2025 NoteHNO ID: [id number] Author: ?, ?, ? Service: ? Author Type: ? Type: Progress Notes Filed: 09/16/2024 11:55 Note Text: Sleep Study Check-In Documentation Date: September 16, 2024 Name: Lalitha Garcia Comments: HST was returned in working order with all sleep questionnaires [facility]03-25-2025 NoteHNO ID: [id number] Author: ?, ?, ? Service: ? Author Type: ? Type: Progress Notes Filed: 09/16/2024 11:55 Note Text: Kierra#[id number] , +GPS Date shipped out: 09/15/2024 SENT SENIOR QUALITY METHODS SPECIALIST DELIVERY - SENIOR QUALITY METHODS SPECIALIST RETURN Tracking mailout: [phone] [id number] Tracking return: [id number] Tracking information inserted above by LSS. Nomad device deployed by another Coordinator II -- 09/14/24[facility]03-24-2025 NoteHNO ID: [id number] Author: LUZ ELENA GALVAN III, PhD Service: [...] Luz Elena Galvan III, PhD 4:45 PM, 09/13/2024[facility]03-24-2025 NoteHNO ID: [id number] Author: ?, ?, ? Service: ? Author Type: ? Type: Progress Notes Filed: 09/16/2024 11:55 Note Text: September 13, 2024 An order has been received for Home Sleep Apnea Test (HSAT) from Rin Smith a B. [facility] Staff. Visit prep complete. Comments :No The sleep study is scheduled for 09/15. Insurance: Payor: [facility] MEDICAID / Plan: [facility] COMMUNITY PLAN MEDICAID OF [place] / Product Type: Medicaid / Payer/Plan Subscr Sex Relation Sub. Ins. ID Effective Group Num 1. [facility] MEDICAID * LALITHA GARCIA 1995 Female Self [id number] 08/21/24 [facility] [address] [facility]03-20-2025 NoteHNO ID: [id number] Author: AVERY LANGSTON HUC Service: Treatment Planning Author Type: Health Cafeteria Attendant Type: ED Notes Filed: 09/16/2024 11:34 Note [...] Garcia DATE: September 16, 2024 TIME: 11:34 [facility]03-20-2025 Telephone encounter Note* Telephone Encounter - Raiza Fernandes RN - 09/09/2024 7:29 PM EDT Reason for Call: Patient states she was [...] Protocols used: Information Only Call - No Gnypqy-XOSMW-EW [facility]03-20-2025 Miscellaneous Notes* Telephone Encounter - Raiza Fernandes RN - 09/09/2024 7:29 PM EDT Reason for Call: Patient states she was [...] Protocols used: Information Only Call - No Oswrni-AUREX-NI documented in this [facility]Gen[facility]25 Telephone encounter Note * Telephone Encounter - Kena Cross RN - 09/09/2024 6:40 PM EDT Reason for Call: headache Outcome: Patient advised to go to the Emergency Room now. Patient plans to go to [facility] at this time. Encouraged to fur puller and call 911 if anything worsens or changes in route. Kena Cross RN Reason for Disposition Loss of vision or double vision (Exception: Same as previously diagnosed migraines.) Answer Assessment - Initial Assessment Questions 1. LOCATION: both sides of mormonism and bridge of nose and back of [...] Unknown, negative tests LMP 08/01/2024 Protocols used: Rchlniki-QXUIZ-CS [facility]03-20-2025 Miscellaneous Notes* Telephone Encounter - Kena Cross RN - 09/09/2024 6:40 PM EDT Reason for Call: headache Outcome: Patient advised to go to the Emergency Room now. Patient plans to go to [facility] at this time. Encouraged to fur puller and call 911 if anything worsens or changes in route. Kena Cross RN Reason for Disposition Loss of vision or double vision (Exception: Same as previously diagnosed migraines.) Answer Assessment - Initial Assessment Questions 1. LOCATION: both sides of mormonism and bridge of nose and back of [...] Unknown, negative tests LMP 08/01/2024 Protocols used: Yppylikq-DJHHL-VB documented in this encounterGenesis Hospital03-18-2025 Instructions* Patient Instructions* Rin Morgan MD - 09/07/2024 2:32 PM EDT Images from the original note were not included. Plan: -- Discontinue metformin -- Start Trulicity 0.75 mg/w and monitor for side effects. If feeling ok after 4 weeks, send mychart message and we can increase dose if interested and well tolerated. MEDICATION IS CONTRAINDICATED WITH -- Healthy diet to prevent side effects; stay well hydrated with water or zero calorie drinks. -- Get Sleep Study as soon as possible; phone [phone] -- Establish care with PCP in [facility] as soon as possible; please call [phone] -- F/u with FOLDING MACHINE SETTER and discuss control while on Trulicity -- [...] then low fat, easy to digest protein mealsafter injection (mainly day 1) Do this for the FIRST 3 DAYS after the injection as this is the time where the drug may have its strongest effect - as well as when typically, the side effects can occur You can resume a more regular healthy diet after day 3 Avis healthy Eating Plate: https://www.[facility].[place].edu/nutritionsource/vlleosk-gbdvqy-yyopk/ Make most of your meal vegetables and [...] s placemat is a reminder that staying activeis also important in weight control. Recipe ideas https://www.[facility].[facility]/nutritionsource/josbvdw-igwdgasf-jufz/ DULAGLUTIDE (Trulicity) - The medication comes in a once weekly, single-dose pen. - The most common adverse reactions reported in >=5% of Trulicity-treated patients in trials were nausea, diarrhea, vomiting, abdominal pain, decreased appetite, dyspepsia, and fatigue.The side effects are usually transient in nature. Please reach out for assistance in managing these symptoms ifthey persist and are bothersome. Side effects typically occur 1-3 days after the injection, when starting the medication, and with dose increases. With this in mind consider timing the injection likeon a Friday night, so if you have [...] kidney injury (bwith nausea/vomiting and resulting dehydration), diabeticretinopathy (damage to the eye's retina), increased heart [...] used to control blood sugar, and can betaken to assist in weight loss. This drug [...] a safe, long-term, and healthy way. A [facility] doctor will help you with dosages of Trulicity for weight lossand might recommend slowly increasing dosage over time to maximize weight loss. The speed at which you lose weight is largely influenced by the amount of lifestyle changes you areable to make: there is no magic weight loss drug on the market. It s important to remember that weight loss takes time, and you ll have the best results if you use Trulicity in combination with exercise and a healthy diet. Trulicity for Weight Loss Dulaglutide: Patient drug information Access BioNova Online for additional drug information, tools, and databases. Copyright 9657-4076 [employer] All rights reserved. 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 What are some things I need to know or do while I take this drug? Tell all of your health care providers that you take this drug. This includes your doctors, nurses,pharmacists, and dentists. Follow the diet and workout [...] of stress such as fever, infection, injury, orsurgery. A change in physical activity, exercise, or diet may also affect blood sugar. Kidney problems have happened with drugs like this one. Sometimes, kidney problems have needed to be treated in the hospital. Dialysis has also been needed. Talk with your doctor. Tell your doctor if you have upset stomach, throwing up, diarrhea, or too much sweating. Losing toomuch fluid may raise your chance of kidney [...] , plan on getting , or are breast- feeding. You will need to talk about the [...] right away if you have any of thefollowing signs or symptoms that may be related to a very bad side effect: Signs of an allergic reaction, like rash; hives; itching; red, swollen, blistered, or peeling skin with or without fever; wheezing; tightness in the chest or throat; trouble breathing, swallowing, ortalking; unusual hoarseness; or swelling of the mouth, [...] no side effects or only have minor sideeffects. Call your doctor or get medical help [...] all information given to you. Follow all instructionsclosely. It is given as a shot into the fatty part of the skin on the top of the thigh, belly area, or upperarm. If you will be giving yourself the shot, your doctor or nurse will teach you how to give the shot. Be sure you know how to use this drug. Read the instructions for use that come with this drug. If there are no instructions for use or you have any questions about how to use this drug, talk with thedoctor or pharmacist. Take with or without food. [...] If you have any questions about this drug,please talk with your doctor, nurse, pharmacist, or other health care provider. If you think there has been an overdose, call your poison control center or get medical care right away. Be ready to tell or show what was taken, how much, and when it happened. Last Reviewed [id number] Consumer Information Use and Disclaimer This generalized [...] that may apply to a specific patient. Itis not intended to be medical advice or [...] or approved for treating a specific patient. [employer]. and its affiliatesdisclaim any warranty or liability relating to this information or the use thereof. The use of thisinformation is governed by the Terms of Use, available at https://www.Algolux.Stukent/en/solutions/lexicomp/about/stuart documented in this encounterGenesis Hospital03-18-2025 History of Present illness Narrative* Rin Morgan MD - 09/07/2024 2:00 PM EDT BMI Obesity Medicine FollowUp Note Distance Health Visit September 07, 2024 I have communicated my name and active licensure. The patient's identity and physical location wereverified at the time of this visit. Either the patient or their legal telecommunications sales representative has been informed of the risks and benefits of -- and alternatives to -- treatment through a remote evaluation andconsents to proceed with the evaluation remotely. Patient Summary: Lalitha Garcia is 28 year old Female who presents virtually for follow-up evaluation of her obesity and related complications to the [facility] [place]. In our previous visits we have outlined [...] 3 weeks, it helped with the appetite atthe beginning but then not so much effect in weight and dc due to side effects: abdominal pain, diarrhea, nausea wo vomiting. Gained weight due to depression, loss a friend recently. Recently startedhydroxyzine PRN for panic attacks and amitriptyline for [...] tirzepitide; it is recommended to do home testbefore start taking medication then monthly to make [...] agree with the plan. History reviewed in [facility] Current Outpatient Medications Medication Sig metFORMIN [...] anxiety Since she esablished care at the [facility]; weight gain +26 lbs; unable to tolerate metformin. Dealing with depression and recently started hydroxyzine PRN for panic attacks and amitriptyline for depression and migraines. Pending HSA to r/o [facility] and pending establish care with PCP from prior visit. Today, we discussed healthy lifestyle including diet and physical activity. To support weight loss,patient is interested in anti-obesity medication with Trulicity [...] establish care with PCP and f/u with FOLDING MACHINE SETTER along with psychiatry. Plan: -- Discontinue metformin -- Start Trulicity 0.75 mg/w and monitor for side effects. If feeling ok after 4 weeks, send OhLife message and we can increase dose if interested and well tolerated. MEDICATION IS CONTRAINDICATED WITH -- Healthy diet to prevent side effects; stay well hydrated with water or zero calorie drinks. -- Get Sleep Study as soon as possible; phone [phone] -- Establish care with PCP in [facility]ident [facility] as soon as possible; please call [phone] -- F/u with FOLDING MACHINE SETTER and discuss control while on Trulicity -- [...] you, Rin Morgan MD [facility] [place] / General Surgery I spent a total of 40 minutes on the date of the service which included preparing to see the patient, [id number]-[id number] patient care, completing clinical documentation, obtaining and/or reviewing separately obtained history, performing a medically appropriate examination, counseling and educating the pat ient/family/caregiver, and ordering medications, tests, or procedures. documented in this encounterGenesis Hospital03-18-2025 NoteHNO ID: [id number] Author: RIN MORGAN MD Service: ? Author Type: Physician Type: Progress Notes Filed: 09/07/2024 17:44 Note Text: BMI Obesity Medicine FollowUp Note Distance Health Visit September 07, 2024 I have communicated my name and active licensure. The patient's identity and physical location were verified at the time of this visit. Either the patient or their legal telecommunications sales representative has been informed of the risks and benefits of -- and alternatives to -- treatment through a remote evaluation and consents to proceed with the evaluation remotely. Patient Summary: Lalitha Garcia is 28 year old Female who presents virtually for follow-up evaluation of her obesity and related complications to the [facility] [place]. In our previous visits we have outlined [...] agree with the plan. History reviewed in [facility] Current Outpatient Medications Medication Sig metFORMIN [...] Date TONSILLECTOMY AND ADENOIDE (more content not included)...[facility]01-23-2025 NoteHNO ID: [id number] Author: SARINA MANUDJANO MD Service: ? Author Type: Physician Type: Progress Notes Filed: 07/15/2024 22:04 Note Text: The patient presents for requested ultrasound. Full report available in the Imaging tab in [employer]. Sarina Mandujano [facility]01-23-2025 History of Present illness Narrative* Sarina Mandujano MD - 07/15/2024 9:50 PM EST The patient presents for requested ultrasound. Full report available in the Imaging tab in [employer]. Sarina Mandujano MD documented in this encounterGenesis Hospital01-17-2025 NoteHNO ID: [id number] Author: JOSEY RUSH APRN.CN Service: ? Author Type: Preform Plate Maker Type: Progress Notes Filed: 07/13/2024 12:02 [...] taking anything for control. Was seen at [place] but do not have records for US or labs. 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 Seen weight management in 05/16 and has follow up 09/14. Taking Metformin and states it has not helped. Denies any pain otherwise. Not taking anything for control. Was seen at [place] but do not have records for US or labs. 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 Metal History Comments: Sexual Activity: Yes; Male Contraception: [...] PELVIC US WHI; Future -Request records from [place] Abnormal uterine bleeding (AUB) Orders: TESTOSTERONE, FREE AND TOTAL, BY EQUILIBRIUM ULTRAFILTRATION MASS SPECTROMETRY; Future LIPID PANEL BASIC; Future INSULIN, TOTAL, SERUM; Future Josey Rush APRN.CNM documented in this encounterGenesis Hospital11-22-2024 Instructions* Patient Instructions* Rin Morgan MD - 05/14/2024 1:49 PM EST Plan: -- Based on the severity and resistance of the obesity to more conservative weight loss approaches,I believe a combination of behavioral and pharmacological intervention is the best and most appropriate retirement therapeutic option. -- We discussed several strategies to track food intake and increase mindfulness around eating. Shewas counseled on General Nutrition recommendations (unless recommended [...] journal - Calorie goal for weight loss: 5779-8219 magdaleno/day for women; 0377-4814 magdaleon/day for men. If your current calorie intake [...] discussed healthy muscle from a combination of resistancetraining and cardiovascular exercise is the best retirement plan. An overall goal of 200 minutes perweek of exercise has been effective in weight loss and maintenance. -- Follow-up visit for management of above interventions 2-3 months Frozen Meals aim for 200-400 calories, 15-30 grams protein, 5+ grams fiber, < 50 grams Carbohydrate, <600 mg sodium Frozen Meals Calories Protein (grams) Carbs Frontera Bowls 240-320 9-23 33-47 Healthy Choice/Power Bowls 180-350 10-25 20-50 Rachel's (V, GF) 280-400 9-20 20-50 Smart Made/Smart Ones 150-320 14-26 16-50 Lean Cuisine 250-410 10-20 15-50 Eating Well 240-360 15-25 25-40 LUVO planted 260-430 10-20 16-55 Other Frozen meals: Kashi, Sweet Earth, Fiberglass Luggage Molder Yakov's Reduced Guilt, Doroteo CRESPO's Delights, Dr. Cho's Protein Drinks Calories Protein (grams) Sugars (grams) EAS Advant Edge Carb Control 110 17 1 Isopure Clear Zero Carb 160 40 0 Muscle Milk light 100-160 15-20 0-1 Spinnakr Core Power 170 26 5 Orgain Protein Shake* 150 26 2 Premier Protein 160 30 1 Evolve (Vegan)* 160 20 5 Other Protein Shakes: Pure Protein, Ensure High Protein; *Offers plant based, dairy free option Protein Powders Calories (per scoop) Protein (g) Sugars (g) Isopure Zero Carb & Unflavored 105 25 0 Practice Business Asst Whey Protein 100 18 3 Optimum Nutrition [...] 30 High Protein Snacks 1. Jerky 2. Voss mix 3. [place] roll-ups 4. Liberian yogurt parfait 5. Veggies and yogurt dip 6. Tuna 7. Hard-boiled eggs 8. Peanut butter celery sticks 9. No-bake energy bites 10. Cheese slices/ Cheese Stick 11. Handful of almonds 12. Roasted chickpeas 13. Hummus and veggies 14. Cottage Cheese 15. Apple with peanut butter 16. Beef sticks (Grass-fed, natural ingredients) 17. Protein bars 18. Canned [place] 19. Boy pudding 20. Homemade granola - rolled oats, nuts, and a sweetener like honey- 1/4 cup serving 21. Pumpkin seeds 22. Nut butter 23. Protein shakes 24. Edamame 25. Avocado and chicken salad 26. Fruit and nut bars - natural ingredients without added sugar. 27. Lentil salad 28. Overnight oatmeal 29. Egg muffins 30. Cheesy popcorn documented in this encounterGenesis Hospital11-22-2024 History of Present illness Narrative* Rin Morgan MD - 05/14/2024 9:00 AM EST Images from the original note were not included. BMI Obesity Medicine Consult Virtual Visit 05/14/24 I have communicated my name and active licensure. The patient's identity and physical location wereverified at the time of this visit. Either the patient or their legal telecommunications sales representative has been informed of the risks and benefits of -- and alternatives to -- treatment through a remote evaluation andconsents to proceed with the evaluation remotely. Consultation requested by SELF for an opinion regarding Obesity. My final recommendations will be communicated back to the requesting physician by way of shared Medical record or letter to requestingphysician via [place] mail. Patient location: work Patient Summary: Lalitha Garcia is a 28 year old female with obesity who presents to the [facility] [place] for an initial evaluation of her obesity and is interested in behavioral and pharmacological weight loss approaches. 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 Relevant PMH: ADHD not taking Adderall and methylphenidate (per patient she was obligated by Motherto take them before but now she is [...] moderately compromised by her weight. It is likelya combination of weight loss therapies will be needed. She appears motivated today. Today, we discussed healthy lifestyle including diet and physical activity. To support weight loss,patient is interested in anti-obesity medication with injectables [...] the obesity to more conservative weight loss approaches,I believe a combination of behavioral and pharmacological intervention is the best and most appropriate retirement therapeutic option. -- We discussed several strategies to track food intake and increase mindfulness around eating. Shewas counseled on General Nutrition recommendations (unless recommended [...] journal - Calorie goal for weight loss: 2545-7671 magdaleno/day for women; 1063-4243 magdaleno/day for men. If your current calorie [...] and possibly increasing appetite along with lack ofsleep -- Encouraged the patient to improve her physical activity. Although cardiovascular exercise is most beneficial for weight loss initially, we discussed healthy muscle from a combination of resistancetraining and cardiovascular exercise is the best termite helper plan. An overall goal of 200 minutes perweek of exercise has been effective in weight [...] you, Rin Morgan MD [facility] Met[facility] [place] / General Surgery I spent a total of 61 minutes on the date of the service which included preparing to see the patient, [id number] patient care, completing clinical documentation, obtaining and/or reviewing separately obtained history, performing a medically appropriate examination, counseling and educating the pat ient/family/caregiver, and ordering medications, tests, or procedures. If [...] won't pursue an appeal. documented in this encounterGenesis Hospital11-22-2024 NoteHNO ID: [id number] Author: RIN MORGAN MD Service: ? Author Type: Physician Type: Progress Notes Filed: 05/24/2024 11:10 Note Text: BMI Obesity Medicine Consult Virtual Visit 05/14/24 I have communicated my name and active licensure. The patient's identity and physical location were verified at the time of this visit. Either the patient or their legal telecommunications sales representative has been informed of the [...] female with obesity who presents to the [facility] [place] for an initial evaluation of her obesity [...] excessive cravings, and evening snacking; Fast Food Controls Technician of impaired eating habits:boredom Eating Disorder night [...] gallbladder disease, gastroparesis. Den (more content not included)...[facility]11-15-2024 NoteHNO ID: [id number] Author: GWEN HZANG, PhD Service: ? Author Type: Psychologist Type: Progress Notes Filed: 05/07/2024 12:07 Note Text: Lalitha Garcia [id number] May 07, 2024 [facility] M61 Psychology Orientation/ Welcome Group [...] individual psychology consultation visit. Gwen Zhang, Ph.D. PsychologistOhio Valley Surgical Hospital11-15-2024 History of Present illness Narrative* Gwen Zhang, PhD - 05/07/2024 10:49 AM EST Lalitha Garcia [id number] May 07, 2024 [facility]abolic [facility] M61 Psychology Orientation/ Welcome Group [...] Patients were encouraged to seek or intensify mentalhealth treatment if needed, and provided with resources to find mental health care. Lastly, brieflyreviewed benefits of food diaries and encouraged patients to begin identifying barriers to weight ma nagement by tracking intake. Orders for referrals and toxicology screens were placed if requested by the patient. Following the session, patients were provided with a copy of the presentation slides,a list of recommended readings including a link to the BMI manual, and a mental health documentation form to give to mental health providers, if applicable. Orders placed by patient request: NONE Plan: Patient to be scheduled for an individual psychology consultation visit. Gwen Zhang, Ph.D. Psychologist [facility] NoteHNO ID: [id number] Author: GWEN ZHANG, PhD Service: ? Author Type: Psychologist Type: Progress Notes Filed: 04/30/2024 12:22 Note Text: [facility] Bariatric Behavioral Services Progress Note April 30, 2024 Patient was a no-show for the Psychology Orientation/Welcome group. If she reschedules, it should be within another Welcome group. Gwen Zhang, Ph.D. [facility] History of Present illness Narrative* Gwen Zhang, PhD - 04/30/2024 12:21 PM EST [facility] Bariatric Behavioral Services Progress Note April 30, 2024 Patient was a no-show for the Psychology Orientation/Welcome group. If she reschedules, it should be within another Welcome group. Gwen Zhang, Ph.D. Psychologist [facility] Hospital Discharge instructions Patient Education 09/23/2022 19:54:59 Foot Sprain [...] is very important during the first 48 hoursto reduce swelling. Stay off the injured foot as much as possible until you can walk on it without pain. If needed, you may use crutches during the first week for this purpose. Crutches can be rentedat many pharmacies or surgical/orthopedic supply stores. You may be given a cast shoe to wear to prevent movement in your foot. If not, you can use a sandalor any shoe that does not put pressure on the injured area until the swelling and pain go away. If using a sandal, be careful not to hit your foot against anything, since another injury could make the sprain worse. Apply an ice pack over the injured area for 15 to 20 minutes every 3 to 6 hours. You should do thisfor the first 24 to 48 hours. You [...] 20 minutes several times daily. Alternating ice andheat may also be helpful. You may use ltdn-wtu-rryvxwi pain medicine to control pain, unless another medicine was prescribed.If you have chronic liver or kidney disease [...] wet, you can dry it with a chair pad maker on cool setting. You may return to sports after healing, when you can run without pain. Follow-up care Follow up with your healthcare provider as directed. Sometimes fractures don t show up on the firstX-ray. Bruises and sprains can sometimes hurt as [...] foot become cold, blue, numb, or tingly [id number] [employer]. [address] [place] [address]71. All rights reserved. This information is not intended as a substitute for professional medical care. Always follow yourhealthcare professional's instructions. Follow Up Care 09/23/2022 15:24:57 With:CHRIS LECHUGA DO Orthopedic Address: [address] [place] [id number] [phone] When:2-4 days With:Call AMB New Pt. Refferral [phone] Address:Unknown When:2-[address] [facility] 04-03-2023 Emergency department Discharge summary Discharge Instructions Thank you for allowing [facility] to assist you with your healthcare needs. The following is importantdischarge information regarding your hospital visit. Diagnosis from Today's Visit Foot injury - Minor What to Do Next Instructions from Your Care Team Discharge Home Equipment - Ordered -- Post-op shoe, 99 month(s), 09/23/22 19:54:00 EDT Post Acute Orders No qualifying data available. You Need to Schedule the Following Appointments Follow Up with CHRIS LECHUGA DO Orthopedic When Within 2-4 days Where: [address] [place] [id number] [phone] Follow Up with Call [facility] New Pt. Refferral [phone] When Within 2-4 days Allergies Bee Stings Latex Medications Please ask your primary doctor or pharmacist before taking any other medication not listed, including over the counter drugs, herbal medications, vitamins and or supplements as they may interact withyour home medications. What How Much When Instructions Last Dose Unchanged albuterol (albuterol MDI (90 mcg/ inh) CFC freeinhalation aerosol) 1 puff(s) by inhalation Every 4 [...] times a day Unchanged multivitamin, ( 19 (Davidson) oral tablet, chewable) 1 tab(s) Chewed Once [...] is very important during the first 48 hoursto reduce swelling. Stay off the injured foot as much as possible until you can walk on it without pain. If needed, you may use crutches during the first week for this purpose. Crutches can be rentedat many pharmacies or surgical/orthopedic supply stores. You may be given a cast shoe to wear to prevent movement in your foot. If not, you can use a sandalor any shoe that does not put pressure on the injured area until the swelling and pain go away. If using a sandal, be careful not to hit your foot against anything, since another injury could make the sprain worse. Apply an ice pack over the injured area for 15 to 20 minutes every 3 to 6 hours. You should do thisfor the first 24 to 48 hours. You [...] 20 minutes several times daily. Alternating ice andheat may also be helpful. You may use velm-bnd-vziifbf pain medicine to control pain, unless another medicine was prescribed.If you have chronic liver or kidney disease [...] wet, you can dry it with a chair pad maker on cool setting. You may return to sports after healing, when you can run without pain. Follow-up care Follow up with your healthcare provider as directed. Sometimes fractures don t show up on the firstX-ray. Bruises and sprains can sometimes hurt as [...] foot become cold, blue, numb, or tingly [phone] [employer]. [address] [place] [address]99. All rights reserved. This information is not intended as a substitute for professional medical care. Always follow yourhealthcare professional's instructions. Additional Information VACCINATE! IT SAVES LIVES! Members of the community who have not yet received the COVID-19 vaccine and would like to receive it can visit one of [facility] vaccine clinics. There are many vaccine clinic locations within the [facility]. For locations and available times, please visit www.[email or web address].[place].gov/. It is important to note that some COVID mobile vaccine clinics are held outdoors and may be canceled in rainy or stormy conditions. To learn more about pediatric vaccinations (ages 5-11), we invite you to visit the [facility] webpage. https://www.[facility].org/pages/2644-Tpply-Zwhijvhgpyl-Blmzvbgwar-Qqvaq-Hrx stions.htmlTo learn more about the COVID-19 vaccine, we invite you to visit the CDC website for a list of frequently asked questions. https://www.cdc.gov/coronavirus/2019-ncov/vaccines/faq.html [facility] Patient Portal Access Instructions: Stay connected with your healthcare team and access your personal medical information anytime with the [facility] Patient Portal. If you would like a full copy of your medical records please contact the [facility] Medical Records Department Friday through Friday between 8a.m. and 4:30p.m. Please follow the directions below to access the portal: 1.Access the email account you provided upon registration to the [facility].2.Look for an invitation email from [facility].3.Open the email and access the invitation link: Accept Invitation to [facility]SeeWhy4.Fill in the required campos to create your account. Sign into www.[employer] with your username and password that you [...] you will allow to register on the [facility] Patient Portal for access to your information. You can also access the [facility] Patient Portal on the JEDI MIND. Simply click on Health Records under Oneloudr Productionsta and then click on the Cloudmach logo. HOW TO SAFELY DISPOSE OF PRESCRIPTION MEDICATIONS Please use one of the following methods to safely dispose of your unused medications. 1.Use a drug disposal kit: the drug disposal pouch allows you to safely discard your old and unuseddrugs. Ask your nurse to give you one when you are discharged.2.Visit a local take-back location: Many local pharmacies and police departments have programs that collect old and unwanted prescriptiondrugs. Call your local pharmacy or go to http://bit.The Naked Song/8G9Bq4u to find one close to you.3.Make use of household items: Use cat litter or old coffee grounds to dispose medications if other options arenot available. Mix your drugs with these household products, seal them in an airtight container andthrow it into the garbage. Call [facility]: [phone] to be sure your drugs can be [...] drowsiness, such as benzodiazepines, also known as benzos,including diazepam and alprazolam, muscle relaxants or sleep aids. Never sell or share prescriptionopioids. This is illegal. Store opioids in a [...] aware that I should contact my doctor. Patient/Leasing Machine Tender Signature: Date/Time: Relationship to Patient: Witness Name/Signature: Date/Time: [facility] [id number] Note ORIGINAL HISTORY: Pain, fall previous day [...] Sign Date: 09/23/2022 4:38:35 PM Ordering Provider: [facility]04-03-2023 Note ORIGINAL HISTORY: Pain, fall previous day [...] Sign Date: 09/23/2022 4:38:35 PM Ordering Provider: [facility]10-08-2022 Note. MICRO - Microbiology PROCEDURE: Urine Culture [*1] [...] Locations *1: This test was performed at: [address], [facility]- , [facility] ([place])03-20-2022 Note. MICRO - Microbiology PROCEDURE: Urine Culture [*1] SOURCE: Urine, Clean Catch BODY SITE: COLLECTED DATE/TIME: 03/19/2022 12:41 EDT RECEIVED DATE/TIME: 03/19/2022 13:05 EDT START DATE/TIME: 03/19/2022 13:05 EDT FREE TEXT SOURCE: FINAL REPORTS Final Report [] Verified Date/Time/Personnel: 03/20/2022 12:25 EDT 10,000 - 50,000 cfu/ml Mixed growth consistent with normal urogenital steph. Performing Locations *1: This test was performed at: [address], [facility] , [facility] ([facility]03-13-2022 Note. MICRO - Microbiology PROCEDURE: Urine Culture [*1] [...] Locations *1: This test was performed at: [address], [address] [place] [address] ([place])03-12-2022 Hospital Discharge instructions Patient Education 03/12/2022 14:58:10 7 - Labor and Delivery Outpatient Instructions (CUSTOM) [facility] OUTPATIENT HOME-GOING INSTRUCTIONS _X_ [...] crackers, bananas, Jell-O, cooked carrots, applesauce. ___ [place] diet. Avoid caffeine, chocolate, alcohol, spiced/greasy foods. [...] the nearest Emergency Room for assistance. Form [id number] D: 05/31 Document Released: 06/09/2006 Document Revised: 05/28/2012 Document Reviewed: 06/09/2006 [facility] Patient Information 2012 [facility]. Follow Up Care 03/11/2022 13:35:35 With:[facility], CLINIC Address: [address] (Fri-Fri from 8:30am - 5:00pm) [place] [address]- When: Unknown Comments:Follow-up as scheduled [facility] 09-20-2022 Note To whom it may concern, Patient was seen in labor and delivery on 03/11-03/12/2022. Please excuse her for this time. If thereare any questions please feel free to call [facility]. Thank you, Breanne Draper M.D. Digitally Signed by BREANNE DRAPER MD on 03/12/2022 03:[address] [facility] [id number] Note Discharge Instructions Thank you for allowing [facility] to assist you with your healthcare needs. The following is importantdischarge information regarding your hospital visit. Your Care Team PHYSICIAN, NONE What to do next Follow Up Appointments Follow Up with [facility], CLINIC When Why: Follow-up as scheduled Where: [address] (Mon-Fri from 8:30am - 5:00pm) [place] [address]- Someone Will Contact You Regarding These Home [...] and or supplements as they may interact withyour home medications. What How Much When Instructions [...] medication providers or retail pharmacies. Education Materials [facility]PATIENT HOME-GOING INSTRUCTIONS _X_ [...] crackers, bananas, Jell-O, cooked carrots, applesauce. ___ [place] diet. Avoid caffeine, chocolate, alcohol, spiced/greasy foods. [...] the nearest Emergency Room for assistance. Form [id number] D: 05/31 Document Released: 06/09/2006 Document Revised: 05/28/2012 Document Reviewed: 06/09/2006 Exit[employer] Patient Information 2012 [employer] [facility]. Additional Information VACCINATE! IT SAVES LIVES! Members of the community who have not yet received the COVID-19 vaccine and would like to receive it can visit one of [facility] vaccine clinics. There are many vaccine clinic locations within the [facility]. For locations and available times, please visit www.[email or web address]. It is important to note that some COVID mobile vaccine clinics are held outdoors and may be canceled in rainy orstormy conditions. To learn more about pediatric vaccinations (ages 5-11), we invite you to visit the [facility] webpage. https://www.akBlink Logics.org/pages/4567-Wzete-Zelmsjxdttt-Fsfbzkyeut-Lmlig-Xfw stions.htmlTo learn more about the COVID-19 vaccine, we invite you to visit the [employer] website for a list of frequently asked questions. https://ata.org/assets/Gbyddujd-uus-Htxlbetf/xlwnc-Kwbypyv-Cmfgzveoaw _Asked-Questions.pdf [facility] Patient Portal Access Instructions: Stay connected with your healthcare team and access your personal medical information anytime with the [facility] Patient Portal.If you would like a full copy of your medical records, please contact the [facility] Medical Records Department, Friday through Friday between 8a.m. and 4:30p.m. Please follow the directions below to access the portal: 1.Access the email account you provided upon registration to the [facility].2.Look for an invitation email from [facility].3.Open the email and access the invitation link: Accept Invitation to AtaSeeWhy4.Fill in the required campos to create your account. Sign into www.[employer] with your username and password that you [...] you will allow to register on the [facility] Patient Portal for access to your information. You can also access the [facility] Patient Portal on the ActionIQ radha. Simply click on Health Records under REHAPP and then click on the Cloudmach logo. HOW TO SAFELY DISPOSE OF PRESCRIPTION MEDICATIONS Please use one of the following methods to safely dispose of your unused medications. 1.Use a drug disposal kit: the drug disposal pouch allows you to safely discard your old and unuseddrugs. Ask your nurse to give you one when you are discharged.2.Visit a local take-back location: Many local pharmacies and police departments have programs that collect old and unwanted prescriptiondrugs. Call your local pharmacy or go to http://[employer]The Naked Song/6L3Cy0q to find one close to you.3.Make use of household items: Use cat litter or old coffee grounds to dispose medications if other options arenot available. Mix your drugs with these household products, seal them in an airtight container andthrow it into the garbage. Call [facility]: [phone] to be sure your drugs can be [...] drowsiness, such as benzodiazepines, also known as benzos,including diazepam and alprazolam, muscle relaxants or sleep aids. Never sell or share prescriptionopioids. This is illegal. Store opioids in a [...] and explained to me and I,LALITHA GARCIA understand my current condition and have read and understand these discharge instructions. I have received a written copy of the plan/instructions. If I have questions, I am aware that I should contact my doctor. Patient/Leasing Machine Tender Signature: Date/Time: Relationship to Patient: Witness Name/Signature: Date/Time: [facility] [id number] medicine Consult note Asked to see this 26 yo G1 female who presents with elevated blood pressures at 34 weeks gestation.She failed the NST yesterday. We discussed delivefy at 34 weeks including respiratory distress, lowrisk of infection, feeding and temperature problems and apnea of prematurity. Mom has received steroids and is on magnesium for her preeclampsia. had been otherwise normal to thatpoint. Mom is Rh negative. Mom plans to breast feed and agreed to the donor breast milk usage while her milk comes in. She is expecting a girl named Katherin. OB plan: Repeat non stress test today consider induction if abnormal NICU will attend delivery Time spent 30 minutes Digitally Signed by IKER WRIGHT MD on 03/12/2022 09:[address] [facility] [id number] Evaluation + Plan note Diagnostic Tests Pending * Profile 7 03/12/[address] [facility] 09-19-2022 Anesthesiology Consult note Patient: LALITHA GARCIA Age: 26 years Sex: Female : 1995 Associated Diagnoses: None Author: IVON RINCON Preoperative Information Anesthesia history Patient's history: negative. [...] Problem list: Medical Asthma / SNOMED CT 408018324 / Confirmed Attention deficit disorder / SNOMED CT 117405691 / Confirmed / SNOMED CT 832352312 / Confirmed / SNOMED CT 101280338 / Confirmed, Active Problems (4) Asthma Attention deficit disorder Histories Past Medical History: Active Attention deficit disorder ([id number]) Family History: Unable to obtain. Procedure history: Tonsillectomy (931120652). Social History Social & Psychosocial Habits Alcohol 03/14/2017 Use: Current Substance Abuse 03/14/2017 Use: Current Type: Marijuana Frequency: 1-2 times per month . Physical Examination Vital Signs(last 24 hrs) Last Charted Temp Oral36.8 DegC (MAR 11 13:45) Heart Rate Lsmnttyhx81 bpm (MAR 11 14:30) Resp Rate 20 br/min (MAR 11 13:45) BMI44.19 (MAR 11 17:52) Measurements from flowsheet : Measurements 03/11/2022 17:52 EDT Height 172.7 cm Admission Weight 131.8 kg [place] Body Weight 63.88 kg BSA Admission 2.4 Body Mass Index 44.19 kg/m2 03/11/2022 13:43 EDT Height 172.7 cm Admission Weight 131.8 kg [place] Body Weight 63.88 kg BSA Admission 2.4 [...] Intact. Neurologic: Alert, Oriented. Assessment and Plan [place] Society of Anesthesiologists (ASA) physical status classification: Class III. Anesthetic Preoperative Plan Anesthetic technique: Epidural. Regional: Epidural. Risks discussed: nausea, vomiting, headache, sore throat, dental injury, hypotension, allergic reaction, serious complications, General discussed with pt in case of emergency. Informed consent: signed by patient. Digitally Signed by IVON RINCON on 03/11/2022 06:43 PM Digitally Signed by IVON RICNON on 03/11/2022 06:[address] [facility] [id number] NotePap Smear Specimen AdequacyApril 2021 3:00pm CommentSatisfactory for evaluation. Endocervical and/or squamous metaplasticcells (endocervical component)are present.[facility]ACED A#[id number] Ridge Medical Center Work Phone: Comment on above:Satisfactory for evaluation. Endocervical and/or squamous metaplasticcells (endocervical component)are present.Evaluation noteNo assessment information availableWDiley Ridge Medical Center Work Phone: Evaluation note* Diagnosis NO SHOW- Primary [facility]* Diagnosis Psychological factors affecting medical condition- Primary Psychic factors associated with diseases classified elsewhere Obesity, unspecified class, unspecified obesity type, unspecified whether serious comorbidity present [facility]* Diagnosis Class 3 severe obesity with body mass index (BMI) of 50.0 to 59.9 in adult, unspecified obesity type, unspecified whether serious comorbidity present (HCC)- Primary documented [facility]* Diagnosis Ovarian cyst, right- Primary Other and unspecified ovarian cyst Abnormal uterine bleeding (AUB) documented [facility]* Diagnosis Ovarian cyst, right- Primary Other and unspecified ovarian cyst Paratubal cyst Other noninflammatory disorder of ovary, fallopian tube, and broad ligament documented [facility]* Diagnosis Class 3 severe obesity with body mass index (BMI) of 50.0 to 59.9 in adult, unspecified obesity type, unspecified whether serious comorbidity present (HCC)- Primary [facility]* Diagnosis DARWIN (obstructive sleep apnea)- Primary Obstructive sleep apnea (adult) (pediatric) documented [facility]* Diagnosis Abnormal uterine bleeding (AUB)- Primary documented [facility]* Diagnosis Encounter for IUD insertion- Primary Encounter for insertion of intrauterine contraceptive device Encounter for insertion of intrauterine contraceptive device [facility] this [facility]* Diagnosis Encounter for IUD insertion- Primary Encounter for insertion of intrauterine contraceptive device [facility]* Diagnosis Intractable migraine without aura and without status migrainosus- Primary Migraine without aura, with intractable migraine, so stated, without mention of status migrainosus DARWIN (obstructive sleep apnea) Obstructive sleep apnea (adult) (pediatric) [facility] No data available for this section [facility] Hospital Discharge instructionsAdditional Instructions Bedside ultrasound shows no clots in your upper leg or behind your knee. Your labs are stable. Return for evaluation formal ultrasound your left leg.[facility] Work Phone: Reason for referral (narrative)* Diagnostic Procedure Only (Routine) - Authorized Specialty Diagnoses / Procedures Referred By Barak t Referred To Contact [facility] Diagnoses Ovarian cyst, right Procedures PELVIC US I US PELVIC NONOBSTETRIC REAL-TIME IMAGE COMPLETE Josey Rush APRN.CNM [address] [place] [address] [facility] [place] [address] Referral ID Status Reason Start Date Expiration Date Visits Requested Visits Authorized [id number] Authorized Auto-Generat ed Referral 07/09/2024 07/09/2025 1 1 [facility] for referral (narrative)No reason for referral information availableWDiley Ridge Medical Center Work Phone: Reason for visit Narrative* Diagnostic Procedure Only (Routine) - Closed Specialty Diagnoses / Procedures Referred By Contbowen t Referred To Contact [facility] Diagnoses Ovarian cyst, right Procedures PELVIC US WHI US PELVIC NONOBSTETRIC REAL-TIME IMAGE COMPLETE Josey Rush APRN.CNM [address] [place] [address] [facility] [place] [address] Referral ID Status Reason Start Date Expiration Date V isits Requested Visits Authorized [id number] Closed Auto-Generate d Referral 07/09/2024 07/09/2025 1 1 [facility] Summary Purpose Family History No Family History Records Found Relationship Condition Age at Onset Recorded Date/T steph aunt Malignant neoplasm of breast 34 grandfather Malignant neoplasm of throat Unknown Advance Directives No Advanced Directives Records Found Advance Directive Response Recorded Date/ Time Do you have a Healthcare Power of Nightclub Manager? No January 22, 2025 9:49pm Advance Directive Response Recorded Date/ Time Do you have a Healthcare Power of Nightclub Manager? No January 22, 2025 9:49pm Do you have a Healthcare Power of Nightclub Manager? No March 21, 2025 11:04am Reason for Referral Specialty Diagnoses / Procedures Referred By Barak t Referred To Contact Internal Medicine Diagnoses Class 3 severe obesity with body mass index (BMI) of 50.0 to 59.9 in adult, unspecified obesity type, unspecified whether serious comorbidity present (HCC) Procedures CONSULT TO INTERNAL MEDICINE OFFICE/OUTPATIENT NEW HIGH MDM 60 MINUTES Rin Morgan MD [address] [id number] Referral ID Status Reason Start Date Expiration Date Visits Requested Visits Authorized [id number] Authorized PCP Requested Referral 4 05/14/2025 1 1 Specialty Diagnoses / Procedures Referred By Barak zelaya Ref[facility] Diagnoses Class 3 severe obesity with body mass index (BMI) of 50.0 to 59.9 in adult, unspecified obesity type, unspecified whether serious comorbidity present (HCC) Procedures HOME SLEEP APNEA TEST (HSAT) SLEEP STD AIRFLOW HRT RATE&O2 SAT EFFORT UNATT Rin Morgan MD [address] [place] [address] [facility] [address] [place] [address] Referral ID Status Reason Start Date Expiration Date Visits Requested Visits Authorized [id number] New Request Auto-Generat ed Referral 4 05/14/2025 1 1 Chief Complaint and Reason for Visit Chief Complaint Admit Date SOB,SWOLLEN ANKLES January 22, 2025 9:4 4pm Chief Complaint Admit Date SOB,SWOLLEN ANKLES January 22, 2025 9:4 4pm ANKLE March 21, 2025 11:04am Additional Source Comments INFORMATION SOURCE (unrecogn ized section and content) DATE CREATED AUTHOR 04/04/2018 [facility] DATE CREATED AUTHOR AUTHOR'S ORGANIZ ATION 03/20/2022 [facility] DATE CREATED AUTHOR AUTHOR'S ORGANIZ ATION 10/05/2022 [facility] ([place]) DATE CREATED AUTHOR AUTHOR'S ORGANIZ ATION 10/10/2024 [facility] DATE CREATED AUTHOR AUTHOR'S ORGANIZ ATION 02/19/2025 [facility] DATE CREATED AUTHOR AUTHOR'S ORGANIZ ATION 03/27/2025 [facility] DATE CREATED AUTHOR AUTHOR'S ORGANIZ ATION 04/29/2025 [facility] Goals (unrecognized section and content) Goals may be documented in a n alternate section No data available for this section No data available for this sectionGoals may be documented in an alternate sectionGoals may be documented in an alternate section Care Team (unrecognized sect ion and content) Care Team Personnel Name: PHYSICIAN, NONE Position: Physician Member Role: Primary Care Physician Name: TOMMIE Lopes Position: OB RN Med Service: [id number] Member Role: RN Name: Irma Crowell RN Position: OB RN Member Role: RN Care Team Related Persons Name: DENI, LALITHA Name: DENI, LALITHA Name: DENI, LALITHA Name: DENI, LALITHA Name: DENI, LALITHA Name: DENI, LALITHA Name: DENI, LALITHA Name: DENI, LALITHA Name: DENI-JOHNS, CATHERIN Name: DENI-JOHNS, LALITHA D Address: [place] [address] [place] [address] Name: SHAKIR KENNY Address: Home [address] [address] Patient Care team informatio n (unrecognized section and content) Team Status: Active Member Role/Relationship Status Dates No Primary Care Physician Primary Care Provider Active Team Status: Inactive Member Role/Relationship Status Dates No Primary Care Physician Primary Care Provider Active Start: January 22, 2025 End: January 22, 2025 Dr. Gomez Philippe DO Emergency Provider Active Start : January 22, 2025 End: January 22, 2025 Team Status: Active Member Role/Relationship Status Dates No Primary Care Physician Primary care physician Activ e Team Status: Inactive Member Role/Relationship Status Dates No Primary Care Physician Primary care physician Activ e Start: January 22, 2025 End: January 22, 2025 Dr. Gomez Philippe , DO Attending physician Active Star t: January 22, 2025 End: January 22, 2025 Dr. Gomez Philippe , DO Emergency Department Physician Active Start: January 22, 2025 End: January 22, 2025 Team Status: Inactive Member Role/Relationship Status Dates No Primary Care Physician Primary care physician Activ e Start: March 21, 2025 End: March 21, 2025 Dr. José Miguel Clark , DO Emergency Departm ent Physician Active Start: March 21, 2025 End: March 21, 2025 Source Comments (unrecognize d section and content) In the event this informatio n is protected by the Federal Confidentiality of Alcohol and Drug Abuse Patient Records regulations: The Federal rules restrict any use of the information to criminally investigate or prosecute any alcohol or drug abuse patient.[facility] the event this information is protected by the Federal Confidentiality of Alcohol and Drug Abuse Patient Records regulations: The Federal rules restrict any use of the information to criminally investigate or prosecute any alcohol or drug abuse patient.[facility] HospitalIn the event this information is protected by the Federal Confidentiality of Alcohol and Drug Abuse Patient Records regulations: The Federal rules restrict any use of the information to criminally investigate or prosecute any alcohol or drug abuse patient.[facility] the event this information is protected by the Federal Confidentiality of Alcohol and Drug Abuse Patient Records regulations: The Federal rules restrict any use of the information to criminally investigate or prosecute any alcohol or drug abuse patient.[facility] HospitalIn the event this information is protected by the Federal Confidentiality of Alcohol and Drug Abuse Patient Records regulations: The Federal rules restrict any use of the information to criminally investigate or prosecute any alcohol or drug abuse patient.[facility] Hospital[facility] the event this information is protected by the Federal Confidentiality of Alcohol and Drug Abuse Patient Records regulations: The Federal rules restrict any use of the information to criminally investigate or prosecute any alcohol or drug abuse patient.[facility] HospitalIn the event this information is protected by the Federal Confidentiality of Alcohol and Drug Abuse Patient Records regulations: The Federal rules restrict any use of the information to criminally investigate or prosecute any alcohol or drug abuse patient.[facility] Hospital[facility] the event this information is protected by the Federal Confidentiality of Alcohol and Drug Abuse Patient Records regulations: The Federal rules restrict any use of the information to criminally investigate or prosecute any alcohol or drug abuse patient.[facility] Hospital[facility] the event this information is protected by the Federal Confidentiality of Alcohol and Drug Abuse Patient Records regulations: The Federal rules restrict any use of the information to criminally investigate or prosecute any alcohol or drug abuse patient.[facility] HospitalIn the event this information is protected by the Federal Confidentiality of Alcohol and Drug Abuse Patient Records regulations: The Federal rules restrict any use of the information to criminally investigate or prosecute any alcohol or drug abuse patient.[facility] HospitalIn the event this information is protected by the Federal Confidentiality of Alcohol and Drug Abuse Patient Records regulations: The Federal rules restrict any use of the information to criminally investigate or prosecute any alcohol or drug abuse patient.[facility] HospitalIn the event this information is protected by the Federal Confidentiality of Alcohol and Drug Abuse Patient Records regulations: The Federal rules restrict any use of the information to criminally investigate or prosecute any alcohol or drug abuse patient.[facility] HospitalIn the event this information is protected by the Federal Confidentiality of Alcohol and Drug Abuse Patient Records regulations: The Federal rules restrict any use of the information to criminally investigate or prosecute any alcohol or drug abuse patient.[facility] HospitalIn the event this information is protected by the Federal Confidentiality of Alcohol and Drug Abuse Patient Records regulations: The Federal rules restrict any use of the information to criminally investigate or prosecute any alcohol or drug abuse patient.[facility] HospitalIn the event this information is protected by the Federal Confidentiality of Alcohol and Drug Abuse Patient Records regulations: The Federal rules restrict any use of the information to criminally investigate or prosecute any alcohol or drug abuse patient.[facility] HospitalIn the event this information is protected by the Federal Confidentiality of Alcohol and Drug Abuse Patient Records regulations: The Federal rules restrict any use of the information to criminally investigate or prosecute any alcohol or drug abuse patient.[facility] HospitalIn the event this information is protected by the Federal Confidentiality of Alcohol and Drug Abuse Patient Records regulations: The Federal rules restrict any use of the information to criminally investigate or prosecute any alcohol or drug abuse patient.[facility] HospitalIn the event this information is protected by the Federal Confidentiality of Alcohol and Drug Abuse Patient Records regulations: The Federal rules restrict any use of the information to criminally investigate or prosecute any alcohol or drug abuse patient.[facility] HospitalIn the event this information is protected by the Federal Confidentiality of Alcohol and Drug Abuse Patient Records regulations: The Federal rules restrict any use of the information to criminally investigate or prosecute any alcohol or drug abuse patient.[facility] Reason for Visit (unrecogniz ed section and content) Reason Comments No Show Reason Comments Obesity Reason Comments Obesity Reason Comments Ovarian cysts Reason Comments Headache Reason Comments Menorrhagia Reason Onset Date Comments Abnormal uterine bleeding IUD 10/21/2024 Reason Onset Date Comments Insertion Of IUD 11/02/2024 Specialty Diagnoses / Procedures Referred By Barak zelaya Referred To Contact [facility] Diagnoses Encounter for IUD insertion Encounter for insertion of intrauterine contraceptive device Procedures INSERT INTRAUTERINE DEVICE LEVONORGESTREL IU 52MG 5 YR INSERT INTRAUTERINE DEVICE Shahnaz Marin MD [address] [place] [address] Phone: tel: fax: [facility] [address] [place] [address] Referral ID Status Reason Start Date Expiration Date V isits Requested Visits Authorized [id number] Closed Auto-Generate d Referral 10/22/2024 10/21/2025 1 1 Reason Comments Leg Pain Reason Comments Hospital F/U Reason Comments Foot Swelling Reason Comments Missed Appointment FOR RECORDS PERTAINING TO PATIENTS WHO ARE [...] BE BASED ON THE PRIMARY CLINICAL RECORDS. [facility] [employer] [facility]. provides no warranty or guarantee of the accuracy or completeness of information in this document.
== END 2025-06-04 19:22 | disposition home or self-care (01) ==
PROVIDERS: Emergency Provider Emergency Medicine; Visit Provider Emergency Medicine
DX: S00.03XA Contusion of scalp, initial encounter (principal); S20.229A Contusion of unspecified back wall of thorax, initial encounter; W00.0XXA Fall on same level due to ice and snow, initial encounter; Y93.01 Activity, walking, marching and hiking; Y99.0 Civilian activity done for income or pay; I10 Essential (primary) hypertension; F17.210 Nicotine dependence, cigarettes, uncomplicated; F17.290 Nicotine dependence, other tobacco product, uncomplicated
CPT/HCPCS: 70450; 71046; 99282